=== PATIENT | male | born 1950 | race Caucasian/White ===

== ENCOUNTER → 2016-06-08 | Outpatient (CLI) | payer MEDICARE, OTHER ==
[~2016-06-08] MED LIST: /HCTZ25TA OR; /NEPHROTA PO; /ONDA4TA PO; BYST10TA PO; BYST20TA2 PO; CARA1TAB2 PO; CETI10TA PO; CLOP75TA2 PO; COLA100C3 PO; COLCPOW6 PO; CRES10TA32 PO; CRES20TA PO; DIOV320T PO; DIPH2.5T14 PO; EPOG1000 SC; GLIPIZIDE XL PO; GLUC10TA18 PO; INSULANT SC; IRON325T3 PO; LABE10TAB PO; LOPE2CA PO; LOSA100T36 PO; MAGN64TASA PO; MICR10CA PO; MINO2.5T PO; MINO25TA PO; NEPH1CAP4 PO; PLAV75TA38 PO; POTA10CA PO; POTA10TA2 PO; POTA20TA6 PO; PREV30CA11 PO; PREV30CA6 PO; PROC IM; REGL10TA6 PO; RENATAB5 PO; RENAVITE PO; RENV2TAB PO; SERT-141 PO; SPIR25TA2 PO; TYLE167L PO; TYLE325T5 PO; TYLE500T78 PO; TYLE650T30 PO; VANC75VL IV; VITA-130 PO; VITA50003 PO; VITA500047 PO; VITA500T88 PO
[2016-06-08 10:03] LABS: CALCIUM LEVEL 8.2 MG/DL (8.8-10.2); CREATININE FOR GFR 9.49 MG/DL (0.70-1.30); GLOMERULAR FILTRATION RATE 5.9 (>49); POTASSIUM SERUM 3.9 MEQ/L (3.5-5.1)
--- NOTE | 2016-06-08 10:06 | REP ---
Chest two views HISTORY: Infarction Comparison: 12/14/2015 The lungs are clear. The heart is normal in size. The pulmonary vasculature is normal in appearance. The bony structure is intact. IMPRESSION: No acute disease. Signed by Cyrus German MD 06/08/2016 09:57 A
--- NOTE | 2016-06-09 18:31 | ECGEPIP ---
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
== END ==
LOC: M LAB 09:06
PROVIDERS: ATTEND Ophthalmology
DX: Z01.818 Encounter for other preprocedural examination (principal); E11.9 Type 2 diabetes mellitus without complications; I63.9 Cerebral infarction, unspecified

== ENCOUNTER 2017-01-14 18:22 | Emergency (ER) | payer MEDICARE, OTHER ==
[~2017-01-14] VITALS: Ht 180.3 cm; Wt 82.2 kg
[~2017-01-14 18:22] MED LIST changes: +CARA1TAB6 PO; -COLA100C3 PO; +COLA100C5 PO; -MINO25TA PO; +PLAV1TAB2 PO; -PLAV75TA38 PO; +PREV1CAP PO; -PREV30CA11 PO; +VITA1CAP40 PO; -VITA50003 PO
[2017-01-14] MEDS ORDERED: TUMS500C PO (18:32)
[2017-01-14] MEDS ORDERED: ZOFR4TAB3 PO (18:32)
[2017-01-14] MEDS ORDERED: NS 500 ML IV ONE (19:15)
[2017-01-14 19:39] LABS: BASO % 0.6 % (0.0-1.0); EOS % 0.1 % (0.0-3.0); IMMATURE GRANULOCYTE % 0.3 % (0-0); LYMPH # 0.6 10^3/uL (1.5-4.5); LYMPH % 8.6 % (24.0-44.0); MEAN CORPUSCULAR HEMOGLOBIN 31.1 pg (27.0-33.0); MEAN CORPUSCULAR HGB CONC 32.3 g/dl (32.0-36.5); MEAN CORPUSCULAR VOLUME 96.4 fl (80.0-96.0); MONO # 0.4 10^3/uL (0.0-0.8); MONO % 6.2 % (0.0-5.0); NEUTROPHILS % 84.2 % (36.0-66.0); PLATELET COUNT, AUTOMATED 206 10^3/uL (150-450); RED CELL DISTRIBUTION WIDTH 14.1 % (11.5-14.5); WHITE BLOOD COUNT 7.1 10^3/uL (4.0-10.0)
[2017-01-14 20:09] LABS: ALBUMIN 3.8 GM/DL (3.2-5.2); ALBUMIN/GLOBULIN RATIO 0.95 (1.00-1.93); BILIRUBIN,DIRECT 0.1 MG/DL (0.0-0.2); BILIRUBIN,TOTAL 0.5 MG/DL (0.2-1.0); CALCIUM LEVEL 8.7 MG/DL (8.8-10.2); CREATININE FOR GFR 6.33 MG/DL (0.70-1.30); GLOMERULAR FILTRATION RATE 9.4 (>49); TOTAL PROTEIN 7.8 GM/DL (6.4-8.2)
[2017-01-14] MEDS ORDERED: METOCLOPRAMIDE INJ 10MG/2ML VIAL (J2765) IV ONE (20:30)
[2017-01-14] MEDS ORDERED: REGL5TAB2 PO (21:26)
[2017-01-14 21:31] VITALS: BP 196/88
== END 2017-01-14 21:42 | disposition home or self-care (01) ==
LOC: M ED 18:22
DX: R11.10 Vomiting, unspecified (principal); E86.9 Volume depletion, unspecified
CPT/HCPCS: 36415; 80048; 80076; 83690; 85025; 96361; 96374; 99284; J2765

== ENCOUNTER 2017-03-06 15:44 | Inpatient (IN) | payer MEDICARE, OTHER ==
[2017-03-06] MEDS: methylPREDNISolone INJ 125 MG/2 ML VIAL (J2930) IV (16:35)
[2017-03-06] MEDS: IPRATROPIUM 0.5MG/ALBUTEROL 2.5MG INH SOL UD 3ML (DUONEB)(J7620) NEB ×3 (16:37→17:57)
[2017-03-06 16:52] LABS: ABG BASE EXCESS 1.9 (-2.0-2.0); ABG HCO3 25.9 MEQ/L (22.0-26.0); ABG O2 SATURATION 98.9 % (95.0-99.0); ABG PARTIAL PRESSURE CO2 38.3 mmHg (35.0-45.0); ABG PARTIAL PRESSURE O2 135.2 mmHg (75.0-100.0); ABG STANDARD HCO3 26.2 MEQ/L (22.0-26.0); ABG TOTAL CO2 27.1 MEQ/L (23.0-31.0); ABG pH (ARTERIAL) 7.448 UNITS (7.350-7.450)
[2017-03-06 17:22] LABS: INFLUENZA A AMPLIFICATION NEGATIVE (NEGATIVE); INFLUENZA B AMPLIFICATION NEGATIVE (NEGATIVE)
[2017-03-06 17:32] LABS: BASO % 0.6 % (0.0-1.0); EOS % 0.2 % (0.0-3.0); HEMATOCRIT 35.4 % (42.0-52.0); HEMOGLOBIN 11.2 g/dl (14.0-18.0); IMMATURE GRANULOCYTE % 0.5 % (0-0); LYMPH # 1.2 10^3/uL (1.5-4.5); LYMPH % 18.3 % (24.0-44.0); MEAN CORPUSCULAR HEMOGLOBIN 30.4 pg (27.0-33.0); MEAN CORPUSCULAR HGB CONC 31.6 g/dl (32.0-36.5); MEAN CORPUSCULAR VOLUME 96.2 fl (80.0-96.0); MONO # 0.7 10^3/uL (0.0-0.8); MONO % 11.6 % (0.0-5.0); NEUTROPHILS # 4.4 10^3/uL (1.8-7.7); NEUTROPHILS % 68.8 % (36.0-66.0); PLATELET COUNT, AUTOMATED 187 10^3/uL (150-450); RED BLOOD COUNT 3.68 10^6/uL (4.30-6.10); RED CELL DISTRIBUTION WIDTH 14.9 % (11.5-14.5); WHITE BLOOD COUNT 6.4 10^3/uL (4.0-10.0)
[2017-03-06 17:50] LABS: LACTIC ACID SEPSIS PROTOCOL 1.7 MMOL/L (0.4-2.0)
[2017-03-06 17:51] LABS: ANION GAP 14 MEQ/L (8-16); BLOOD UREA NITROGEN 48 MG/DL (7-18); CALCIUM LEVEL 8.3 MG/DL (8.8-10.2); CARBON DIOXIDE LEVEL 28 MEQ/L (21-32); CHLORIDE LEVEL 95 MEQ/L (98-107); CPK CREATINE PHOSPHOKINASE 264 U/L (39-308); GLOMERULAR FILTRATION RATE 5.7 (>49); GLUCOSE, FASTING 134 MG/DL (70-100); POTASSIUM SERUM 4.3 MEQ/L (3.5-5.1); SODIUM LEVEL 137 MEQ/L (136-145)
[2017-03-06 17:52] LABS: MB/CK RELATIVE INDEX 0.37 (< OR =4)
[2017-03-06 17:58] LABS: CREATININE FOR GFR 9.76 MG/DL (0.70-1.30)
[2017-03-06] MEDS ORDERED: ACETAMINOPHEN TAB 650MG DOSE (2X325MG) PO (19:00)
[2017-03-06] MEDS: DOCUSATE SODIUM 100 MG CAP PO ×2 (21:00→22:25)
[2017-03-06] MEDS: ALBUTEROL SULFATE 2.5 MG/0.5 ML INH NEB SOLN NEB (22:17)
[2017-03-06 22:19] LABS: BEDSIDE GLUCOSE 251 MG/DL (80-115)
[2017-03-06] MEDS: LEVEMIR (INSULIN DETEMIR) 1 UNITS/0.01ML SC (22:23)
[2017-03-06] MEDS: LANSOPRAZOLE SUSPENSION 30 MG/10 ML ORAL SYRINGE (FIRST-LANSOPRAZOLE) PO (22:24)
[2017-03-06] MEDS: ROSUVASTATIN 10 MG TAB (CRESTOR) PO (22:24)
[2017-03-06] MEDS: CLOPIDOGREL 75 MG TAB PO (22:25)
[2017-03-06] MEDS: NEBIVOLOL 5 MG TAB (BYSTOLIC) PO (22:25)
[2017-03-06] MEDS: NEPHRO-VIT TAB (NEPHROCAPS) PO (22:25)
[2017-03-07] MEDS: ALBUTEROL SULFATE 2.5 MG/0.5 ML INH NEB SOLN NEB ×2 (04:10→22:49)
[2017-03-07 07:46] LABS: HEMATOCRIT 32.7 % (42.0-52.0); HEMOGLOBIN 10.7 g/dl (14.0-18.0); MEAN CORPUSCULAR HEMOGLOBIN 30.7 pg (27.0-33.0); MEAN CORPUSCULAR HGB CONC 32.7 g/dl (32.0-36.5); PLATELET COUNT, AUTOMATED 182 10^3/uL (150-450); RED BLOOD COUNT 3.48 10^6/uL (4.30-6.10); RED CELL DISTRIBUTION WIDTH 14.5 % (11.5-14.5); WHITE BLOOD COUNT 4.6 10^3/uL (4.0-10.0)
[2017-03-07] MEDS: DOCUSATE SODIUM 100 MG CAP PO ×3 (08:07→22:05)
[2017-03-07] MEDS: guaiFENesin ER 600 MG TAB PO ×2 (08:14→22:07)
[2017-03-07 08:15] LABS: ALBUMIN 3.6 GM/DL (3.2-5.2); ANION GAP 12 MEQ/L (8-16); BLOOD UREA NITROGEN 59 MG/DL (7-18); CALCIUM LEVEL 8.2 MG/DL (8.8-10.2); CARBON DIOXIDE LEVEL 27 MEQ/L (21-32); CHLORIDE LEVEL 94 MEQ/L (98-107); GLOMERULAR FILTRATION RATE 5.1 (>49); GLUCOSE, FASTING 257 MG/DL (70-100); PHOSPHORUS LEVEL 7.7 MG/DL (2.5-4.9); POTASSIUM SERUM 4.1 MEQ/L (3.5-5.1); SODIUM LEVEL 133 MEQ/L (136-145)
[2017-03-07] MEDS: CALCIUM CARBONATE 500 MG CHEW U/D PO ×3 (08:15→17:43)
[2017-03-07 09:08] LABS: CK-MB VALUE MASS 1.7 NG/ML (0.0-3.6); CPK CREATINE PHOSPHOKINASE 255 U/L (39-308); MB/CK RELATIVE INDEX 0.66 (< OR =4); TROPONIN I 0.37 NG/ML (< 0.10)
[2017-03-07 09:09] LABS: C REACTIVE PROTEIN QUANTITATIV 4.13 MG/DL (0.00-0.30)
[2017-03-07] MEDS: HEPARIN 1,000 UNITS/ML 10ML VIAL (FOR RADIOLOGY& DIALYSIS ONLY) IV (11:45)
[2017-03-07] MEDS: HumaLOG INSULIN (NovoLOG) PER UNIT SC ×2 (17:30→21:00)
[2017-03-07] MEDS ORDERED: GLUCAGON FOR INJ 1 MG VIAL (J1610) SC (19:00)
[2017-03-07] MEDS ORDERED: GLUCOSE 4 GM CHEW TABLET PO (19:00)
[2017-03-07] MEDS ORDERED: DEXTROSE 50% 50 ML SYRINGE IV (19:00)
[2017-03-07 19:31] LABS: CPK CREATINE PHOSPHOKINASE 254 U/L (39-308); TROPONIN I 0.48 NG/ML (< 0.10)
[2017-03-07 19:32] LABS: CK-MB VALUE MASS 2.7 NG/ML (0.0-3.6); MB/CK RELATIVE INDEX 1.06 (< OR =4)
[2017-03-07 20:53] LABS: BEDSIDE GLUCOSE 131 MG/DL (80-115)
[2017-03-07] MEDS: LEVEMIR (INSULIN DETEMIR) 1 UNITS/0.01ML SC (21:00)
[2017-03-07] MEDS: CLOPIDOGREL 75 MG TAB PO (22:07)
[2017-03-07] MEDS: ROSUVASTATIN 10 MG TAB (CRESTOR) PO (22:07)
[2017-03-07] MEDS: HEPARIN SOD (PORCINE) 5000 UNITS/ML VIAL SC (22:08)
[2017-03-07] MEDS: LANSOPRAZOLE SUSPENSION 30 MG/10 ML ORAL SYRINGE (FIRST-LANSOPRAZOLE) PO (22:12)
[2017-03-07] MEDS: NEPHRO-VIT TAB (NEPHROCAPS) PO (22:12)
[2017-03-07] MEDS: NEBIVOLOL 5 MG TAB (BYSTOLIC) PO (22:17)
[2017-03-08] MEDS: HEPARIN SOD (PORCINE) 5000 UNITS/ML VIAL SC ×3 (06:11→22:14)
[2017-03-08] MEDS: guaiFENesin ER 600 MG TAB PO ×2 (06:11→22:12)
[2017-03-08] MEDS: CALCIUM CARBONATE 500 MG CHEW U/D PO ×3 (06:11→17:50)
[2017-03-08 06:18] LABS: BEDSIDE GLUCOSE 45 MG/DL (80-115)
[2017-03-08 06:21] LABS: HEMATOCRIT 39.5 % (42.0-52.0); HEMOGLOBIN 12.6 g/dl (14.0-18.0); MEAN CORPUSCULAR HEMOGLOBIN 30.5 pg (27.0-33.0); MEAN CORPUSCULAR HGB CONC 31.9 g/dl (32.0-36.5); MEAN CORPUSCULAR VOLUME 95.6 fl (80.0-96.0); PLATELET COUNT, AUTOMATED 259 10^3/uL (150-450); RED BLOOD COUNT 4.13 10^6/uL (4.30-6.10); RED CELL DISTRIBUTION WIDTH 14.5 % (11.5-14.5); WHITE BLOOD COUNT 13.3 10^3/uL (4.0-10.0)
[2017-03-08 06:30] LABS: ALBUMIN 3.7 GM/DL (3.2-5.2); ANION GAP 10 MEQ/L (8-16); BLOOD UREA NITROGEN 38 MG/DL (7-18); C REACTIVE PROTEIN QUANTITATIV 3.35 MG/DL (0.00-0.30); CALCIUM LEVEL 9.3 MG/DL (8.8-10.2); CARBON DIOXIDE LEVEL 28 MEQ/L (21-32); CHLORIDE LEVEL 102 MEQ/L (98-107); CREATININE FOR GFR 6.77 MG/DL (0.70-1.30); GLOMERULAR FILTRATION RATE 8.7 (>49); GLUCOSE, FASTING 54 MG/DL (70-100); MAGNESIUM LEVEL 2.6 MG/DL (1.8-2.4); PHOSPHORUS LEVEL 3.3 MG/DL (2.5-4.9); POTASSIUM SERUM 3.2 MEQ/L (3.5-5.1); SODIUM LEVEL 140 MEQ/L (136-145)
[2017-03-08 06:55] LABS: BEDSIDE GLUCOSE 74 MG/DL (80-115)
[2017-03-08] MEDS: HumaLOG INSULIN (NovoLOG) PER UNIT SC ×4 (07:30→22:13)
[2017-03-08 08:00] LABS: CK-MB VALUE MASS 2.5 NG/ML (0.0-3.6); CPK CREATINE PHOSPHOKINASE 169 U/L (39-308); MB/CK RELATIVE INDEX 1.47 (< OR =4); TROPONIN I 0.25 NG/ML (< 0.10)
[2017-03-08] MEDS: DOCUSATE SODIUM 100 MG CAP PO ×2 (08:17→22:14)
[2017-03-08] MEDS: methylPREDNISolone INJ 125 MG/2 ML VIAL (J2930) IV ×2 (10:01→22:14)
[2017-03-08] MEDS: IPRATROPIUM 0.5MG/ALBUTEROL 2.5MG INH SOL UD 3ML (DUONEB)(J7620) NEB ×4 (10:03→20:00)
[2017-03-08 12:04] LABS: BEDSIDE GLUCOSE 180 MG/DL (80-115)
[2017-03-08] MEDS: ADVAIR HFA 230/21MCG INHALER INH ×2 (13:50→22:02)
[2017-03-08 17:15] LABS: BEDSIDE GLUCOSE 222 MG/DL (80-115)
[2017-03-08 21:02] LABS: BEDSIDE GLUCOSE 254 MG/DL (80-115)
[2017-03-08] MEDS: ROSUVASTATIN 10 MG TAB (CRESTOR) PO (22:12)
[2017-03-08] MEDS: CLOPIDOGREL 75 MG TAB PO (22:12)
[2017-03-08] MEDS: NEBIVOLOL 5 MG TAB (BYSTOLIC) PO (22:12)
[2017-03-08] MEDS: NEPHRO-VIT TAB (NEPHROCAPS) PO (22:12)
[2017-03-08] MEDS: LEVEMIR (INSULIN DETEMIR) 1 UNITS/0.01ML SC (22:13)
[2017-03-08] MEDS: LANSOPRAZOLE SUSPENSION 30 MG/10 ML ORAL SYRINGE (FIRST-LANSOPRAZOLE) PO (22:14)
[2017-03-09] MEDS: IPRATROPIUM 0.5MG/ALBUTEROL 2.5MG INH SOL UD 3ML (DUONEB)(J7620) NEB ×4 (02:00→20:25)
[2017-03-09 04:54] LABS: BEDSIDE GLUCOSE 249 MG/DL (80-115)
[2017-03-09 04:56] LABS: BEDSIDE GLUCOSE 258 MG/DL (80-115)
[2017-03-09] MEDS: DOCUSATE SODIUM 100 MG CAP PO ×2 (06:10→21:02)
[2017-03-09] MEDS: guaiFENesin ER 600 MG TAB PO ×2 (06:13→21:18)
[2017-03-09] MEDS: HEPARIN SOD (PORCINE) 5000 UNITS/ML VIAL SC ×3 (06:14→21:19)
[2017-03-09 06:17] LABS: HEMATOCRIT 35.1 % (42.0-52.0); HEMOGLOBIN 11.1 g/dl (14.0-18.0); MEAN CORPUSCULAR HEMOGLOBIN 30.2 pg (27.0-33.0); MEAN CORPUSCULAR HGB CONC 31.6 g/dl (32.0-36.5); MEAN CORPUSCULAR VOLUME 95.4 fl (80.0-96.0); PLATELET COUNT, AUTOMATED 208 10^3/uL (150-450); RED BLOOD COUNT 3.68 10^6/uL (4.30-6.10); RED CELL DISTRIBUTION WIDTH 14.3 % (11.5-14.5); WHITE BLOOD COUNT 8.7 10^3/uL (4.0-10.0)
[2017-03-09 06:35] LABS: ALBUMIN 3.1 GM/DL (3.2-5.2); ANION GAP 13 MEQ/L (8-16); BLOOD UREA NITROGEN 62 MG/DL (7-18); C REACTIVE PROTEIN QUANTITATIV 2.96 MG/DL (0.00-0.30); CALCIUM LEVEL 8.6 MG/DL (8.8-10.2); CARBON DIOXIDE LEVEL 25 MEQ/L (21-32); CHLORIDE LEVEL 95 MEQ/L (98-107); GLUCOSE, FASTING 248 MG/DL (70-100); MAGNESIUM LEVEL 2.6 MG/DL (1.8-2.4); PHOSPHORUS LEVEL 4.8 MG/DL (2.5-4.9); POTASSIUM SERUM 4.3 MEQ/L (3.5-5.1); SODIUM LEVEL 133 MEQ/L (136-145)
[2017-03-09 06:40] LABS: CREATININE FOR GFR 8.19 MG/DL (0.70-1.30)
[2017-03-09] MEDS: ADVAIR HFA 230/21MCG INHALER INH ×2 (07:43→20:03)
[2017-03-09] MEDS: HumaLOG INSULIN (NovoLOG) PER UNIT SC ×4 (07:53→21:21)
[2017-03-09] MEDS: CALCIUM CARBONATE 500 MG CHEW U/D PO ×3 (07:54→17:35)
[2017-03-09] MEDS: methylPREDNISolone INJ 125 MG/2 ML VIAL (J2930) IV ×2 (07:54→21:19)
[2017-03-09] MEDS ORDERED: HEPARIN 1,000 UNITS/ML 10ML VIAL (FOR RADIOLOGY& DIALYSIS ONLY) IV (11:15)
[2017-03-09] MEDS: HEPARIN 1,000 UNITS/ML 10ML VIAL (FOR RADIOLOGY& DIALYSIS ONLY) IV (11:15)
[2017-03-09 12:26] LABS: BEDSIDE GLUCOSE 202 MG/DL (80-115)
[2017-03-09 16:44] LABS: BEDSIDE GLUCOSE 228 MG/DL (80-115)
[2017-03-09] MEDS: ROSUVASTATIN 10 MG TAB (CRESTOR) PO (21:17)
[2017-03-09] MEDS: NEPHRO-VIT TAB (NEPHROCAPS) PO (21:18)
[2017-03-09] MEDS: NEBIVOLOL 5 MG TAB (BYSTOLIC) PO (21:18)
[2017-03-09] MEDS: CLOPIDOGREL 75 MG TAB PO (21:18)
[2017-03-09] MEDS: LANSOPRAZOLE SUSPENSION 30 MG/10 ML ORAL SYRINGE (FIRST-LANSOPRAZOLE) PO (21:19)
[2017-03-09] MEDS: LEVEMIR (INSULIN DETEMIR) 1 UNITS/0.01ML SC (21:20)
[2017-03-09 21:34] LABS: BEDSIDE GLUCOSE 246 MG/DL (80-115)
[2017-03-10] MEDS: IPRATROPIUM 0.5MG/ALBUTEROL 2.5MG INH SOL UD 3ML (DUONEB)(J7620) NEB ×5 (01:07→23:31)
[2017-03-10] MEDS: HEPARIN SOD (PORCINE) 5000 UNITS/ML VIAL SC ×3 (05:17→21:24)
[2017-03-10 05:56] LABS: HEMATOCRIT 33.2 % (42.0-52.0); HEMOGLOBIN 10.7 g/dl (14.0-18.0); MEAN CORPUSCULAR HEMOGLOBIN 30.7 pg (27.0-33.0); MEAN CORPUSCULAR HGB CONC 32.2 g/dl (32.0-36.5); MEAN CORPUSCULAR VOLUME 95.1 fl (80.0-96.0); PLATELET COUNT, AUTOMATED 200 10^3/uL (150-450); RED BLOOD COUNT 3.49 10^6/uL (4.30-6.10); RED CELL DISTRIBUTION WIDTH 14.4 % (11.5-14.5); WHITE BLOOD COUNT 8.5 10^3/uL (4.0-10.0)
[2017-03-10 06:16] LABS: ALBUMIN 3.3 GM/DL (3.2-5.2); ANION GAP 10 MEQ/L (8-16); BLOOD UREA NITROGEN 46 MG/DL (7-18); CALCIUM LEVEL 8.8 MG/DL (8.8-10.2); CARBON DIOXIDE LEVEL 26 MEQ/L (21-32); CHLORIDE LEVEL 100 MEQ/L (98-107); CREATININE FOR GFR 5.96 MG/DL (0.70-1.30); GLOMERULAR FILTRATION RATE 10.1 (>49); GLUCOSE, FASTING 332 MG/DL (70-100); MAGNESIUM LEVEL 2.2 MG/DL (1.8-2.4); POTASSIUM SERUM 4.6 MEQ/L (3.5-5.1); SODIUM LEVEL 136 MEQ/L (136-145)
[2017-03-10] MEDS: ADVAIR HFA 230/21MCG INHALER INH ×2 (07:33→21:34)
[2017-03-10] MEDS: HumaLOG INSULIN (NovoLOG) PER UNIT SC ×4 (07:45→21:25)
[2017-03-10] MEDS: CALCIUM CARBONATE 500 MG CHEW U/D PO ×3 (07:45→17:28)
[2017-03-10] MEDS: DOCUSATE SODIUM 100 MG CAP PO ×2 (09:00→21:00)
[2017-03-10] MEDS: guaiFENesin ER 600 MG TAB PO ×2 (10:17→21:26)
[2017-03-10] MEDS: methylPREDNISolone INJ 40 MG/1 ML VIAL (J2920) IV ×2 (10:17→21:24)
[2017-03-10 11:34] LABS: BEDSIDE GLUCOSE 83 MG/DL (80-115)
[2017-03-10] MEDS: LEVEMIR (INSULIN DETEMIR) 1 UNITS/0.01ML SC (21:00)
[2017-03-10] MEDS: NEPHRO-VIT TAB (NEPHROCAPS) PO (21:25)
[2017-03-10] MEDS: ROSUVASTATIN 10 MG TAB (CRESTOR) PO (21:26)
[2017-03-10] MEDS: CLOPIDOGREL 75 MG TAB PO (21:26)
[2017-03-10] MEDS: NEBIVOLOL 5 MG TAB (BYSTOLIC) PO (21:26)
[2017-03-10] MEDS: LANSOPRAZOLE SUSPENSION 30 MG/10 ML ORAL SYRINGE (FIRST-LANSOPRAZOLE) PO (22:14)
[2017-03-11] MEDS: IPRATROPIUM 0.5MG/ALBUTEROL 2.5MG INH SOL UD 3ML (DUONEB)(J7620) NEB ×4 (02:00→20:00)
[2017-03-11] MEDS: DOCUSATE SODIUM 100 MG CAP PO ×2 (05:36→20:20)
[2017-03-11 05:59] LABS: BEDSIDE GLUCOSE 320 MG/DL (80-115)
[2017-03-11 05:59] LABS: BEDSIDE GLUCOSE 321 MG/DL (80-115)
[2017-03-11] MEDS: methylPREDNISolone INJ 40 MG/1 ML VIAL (J2920) IV ×2 (06:13→21:22)
[2017-03-11] MEDS: HEPARIN SOD (PORCINE) 5000 UNITS/ML VIAL SC ×3 (06:13→21:22)
[2017-03-11] MEDS: guaiFENesin ER 600 MG TAB PO ×2 (06:14→21:20)
[2017-03-11] MEDS: CALCIUM CARBONATE 500 MG CHEW U/D PO ×3 (06:14→17:57)
[2017-03-11 06:26] LABS: HEMATOCRIT 33.9 % (42.0-52.0); HEMOGLOBIN 10.8 g/dl (14.0-18.0); MEAN CORPUSCULAR HGB CONC 31.9 g/dl (32.0-36.5); MEAN CORPUSCULAR VOLUME 94.2 fl (80.0-96.0); PLATELET COUNT, AUTOMATED 201 10^3/uL (150-450); RED CELL DISTRIBUTION WIDTH 14.4 % (11.5-14.5); WHITE BLOOD COUNT 9.5 10^3/uL (4.0-10.0)
[2017-03-11 06:44] LABS: ALBUMIN 3.4 GM/DL (3.2-5.2); ANION GAP 12 MEQ/L (8-16); BLOOD UREA NITROGEN 74 MG/DL (7-18); C REACTIVE PROTEIN QUANTITATIV 1.26 MG/DL (0.00-0.30); CALCIUM LEVEL 8.6 MG/DL (8.8-10.2); CARBON DIOXIDE LEVEL 24 MEQ/L (21-32); CHLORIDE LEVEL 98 MEQ/L (98-107); CREATININE FOR GFR 7.46 MG/DL (0.70-1.30); GLOMERULAR FILTRATION RATE 7.8 (>49); GLUCOSE, FASTING 235 MG/DL (70-100); MAGNESIUM LEVEL 2.5 MG/DL (1.8-2.4); PHOSPHORUS LEVEL 3.6 MG/DL (2.5-4.9); POTASSIUM SERUM 4.9 MEQ/L (3.5-5.1); SODIUM LEVEL 134 MEQ/L (136-145)
[2017-03-11] MEDS: HumaLOG INSULIN (NovoLOG) PER UNIT SC ×4 (06:53→21:22)
[2017-03-11] MEDS: ADVAIR HFA 230/21MCG INHALER INH ×2 (08:19→21:06)
[2017-03-11] MEDS: HEPARIN 1,000 UNITS/ML 10ML VIAL (FOR RADIOLOGY& DIALYSIS ONLY) IV (12:15)
[2017-03-11] MEDS: BENZONATATE 100 MG CAP PO ×2 (18:39→21:20)
[2017-03-11 20:46] LABS: BEDSIDE GLUCOSE 273 MG/DL (80-115)
[2017-03-11] MEDS: LEVEMIR (INSULIN DETEMIR) 1 UNITS/0.01ML SC (21:00)
[2017-03-11] MEDS: ROSUVASTATIN 10 MG TAB (CRESTOR) PO (21:20)
[2017-03-11] MEDS: NEPHRO-VIT TAB (NEPHROCAPS) PO (21:20)
[2017-03-11] MEDS: CLOPIDOGREL 75 MG TAB PO (21:20)
[2017-03-11] MEDS: NEBIVOLOL 5 MG TAB (BYSTOLIC) PO (21:21)
[2017-03-11] MEDS: LANSOPRAZOLE SUSPENSION 30 MG/10 ML ORAL SYRINGE (FIRST-LANSOPRAZOLE) PO (21:21)
[2017-03-12] MEDS: IPRATROPIUM 0.5MG/ALBUTEROL 2.5MG INH SOL UD 3ML (DUONEB)(J7620) NEB ×4 (01:35→20:00)
[2017-03-12] MEDS: HEPARIN SOD (PORCINE) 5000 UNITS/ML VIAL SC ×3 (05:44→22:29)
[2017-03-12 06:26] LABS: HEMATOCRIT 33.9 % (42.0-52.0); HEMOGLOBIN 10.9 g/dl (14.0-18.0); MEAN CORPUSCULAR HEMOGLOBIN 30.1 pg (27.0-33.0); MEAN CORPUSCULAR HGB CONC 32.2 g/dl (32.0-36.5); MEAN CORPUSCULAR VOLUME 93.6 fl (80.0-96.0); PLATELET COUNT, AUTOMATED 220 10^3/uL (150-450); RED BLOOD COUNT 3.62 10^6/uL (4.30-6.10); RED CELL DISTRIBUTION WIDTH 14.2 % (11.5-14.5); WHITE BLOOD COUNT 13.8 10^3/uL (4.0-10.0)
[2017-03-12 06:40] LABS: ANION GAP 9 MEQ/L (8-16); BLOOD UREA NITROGEN 46 MG/DL (7-18); C REACTIVE PROTEIN QUANTITATIV 1.32 MG/DL (0.00-0.30); CALCIUM LEVEL 8.3 MG/DL (8.8-10.2); CARBON DIOXIDE LEVEL 28 MEQ/L (21-32); CHLORIDE LEVEL 101 MEQ/L (98-107); CREATININE FOR GFR 5.17 MG/DL (0.70-1.30); GLOMERULAR FILTRATION RATE 11.9 (>49); GLUCOSE, FASTING 146 MG/DL (70-100); PHOSPHORUS LEVEL 2.4 MG/DL (2.5-4.9); POTASSIUM SERUM 4.3 MEQ/L (3.5-5.1); SODIUM LEVEL 138 MEQ/L (136-145)
[2017-03-12] MEDS: BENZONATATE 100 MG CAP PO ×3 (08:14→22:28)
[2017-03-12] MEDS: HumaLOG INSULIN (NovoLOG) PER UNIT SC ×4 (08:14→22:31)
[2017-03-12] MEDS: DOCUSATE SODIUM 100 MG CAP PO ×2 (08:14→22:27)
[2017-03-12] MEDS: CALCIUM CARBONATE 500 MG CHEW U/D PO ×3 (08:14→17:56)
[2017-03-12] MEDS: guaiFENesin ER 600 MG TAB PO ×2 (08:14→22:28)
[2017-03-12] MEDS: methylPREDNISolone INJ 40 MG/1 ML VIAL (J2920) IV ×2 (08:17→22:29)
[2017-03-12] MEDS: ADVAIR HFA 230/21MCG INHALER INH ×2 (09:43→20:28)
[2017-03-12 11:59] LABS: BEDSIDE GLUCOSE 166 MG/DL (80-115)
[2017-03-12 11:59] LABS: BEDSIDE GLUCOSE 311 MG/DL (80-115)
[2017-03-12 11:59] LABS: BEDSIDE GLUCOSE 226 MG/DL (80-115)
[2017-03-12 12:00] LABS: BEDSIDE GLUCOSE 141 MG/DL (80-115)
[2017-03-12 12:32] LABS: BEDSIDE GLUCOSE 291 MG/DL (80-115)
[2017-03-12 16:55] LABS: BEDSIDE GLUCOSE 268 MG/DL (80-115)
[2017-03-12] MEDS: ROSUVASTATIN 10 MG TAB (CRESTOR) PO (22:27)
[2017-03-12] MEDS: NEBIVOLOL 5 MG TAB (BYSTOLIC) PO (22:28)
[2017-03-12] MEDS: NEPHRO-VIT TAB (NEPHROCAPS) PO (22:28)
[2017-03-12] MEDS: LANSOPRAZOLE SUSPENSION 30 MG/10 ML ORAL SYRINGE (FIRST-LANSOPRAZOLE) PO (22:29)
[2017-03-12] MEDS: CLOPIDOGREL 75 MG TAB PO (22:30)
[2017-03-12] MEDS: LEVEMIR (INSULIN DETEMIR) 1 UNITS/0.01ML SC (22:30)
[2017-03-13] MEDS: IPRATROPIUM 0.5MG/ALBUTEROL 2.5MG INH SOL UD 3ML (DUONEB)(J7620) NEB ×5 (01:22→23:43)
[2017-03-13 05:51] LABS: HEMATOCRIT 33.9 % (42.0-52.0); HEMOGLOBIN 10.8 g/dl (14.0-18.0); MEAN CORPUSCULAR HEMOGLOBIN 30.1 pg (27.0-33.0); MEAN CORPUSCULAR HGB CONC 31.9 g/dl (32.0-36.5); MEAN CORPUSCULAR VOLUME 94.4 fl (80.0-96.0); PLATELET COUNT, AUTOMATED 193 10^3/uL (150-450); RED BLOOD COUNT 3.59 10^6/uL (4.30-6.10); RED CELL DISTRIBUTION WIDTH 14.4 % (11.5-14.5); WHITE BLOOD COUNT 10.9 10^3/uL (4.0-10.0)
[2017-03-13] MEDS: HEPARIN SOD (PORCINE) 5000 UNITS/ML VIAL SC ×3 (06:03→21:47)
[2017-03-13] MEDS: BENZONATATE 100 MG CAP PO ×3 (06:04→21:46)
[2017-03-13] MEDS: guaiFENesin ER 600 MG TAB PO ×2 (06:04→21:46)
[2017-03-13] MEDS: DOCUSATE SODIUM 100 MG CAP PO ×2 (06:04→21:45)
[2017-03-13] MEDS: methylPREDNISolone INJ 40 MG/1 ML VIAL (J2920) IV (06:04)
[2017-03-13] MEDS: CALCIUM CARBONATE 500 MG CHEW U/D PO ×3 (06:04→16:55)
[2017-03-13 06:12] LABS: ALBUMIN 2.7 GM/DL (3.2-5.2); ANION GAP 9 MEQ/L (8-16); BLOOD UREA NITROGEN 76 MG/DL (7-18); CALCIUM LEVEL 8.7 MG/DL (8.8-10.2); CARBON DIOXIDE LEVEL 26 MEQ/L (21-32); CHLORIDE LEVEL 100 MEQ/L (98-107); CREATININE FOR GFR 6.83 MG/DL (0.70-1.30); GLOMERULAR FILTRATION RATE 8.6 (>49); GLUCOSE, FASTING 113 MG/DL (70-100); MAGNESIUM LEVEL 2.4 MG/DL (1.8-2.4); PHOSPHORUS LEVEL 2.8 MG/DL (2.5-4.9); SODIUM LEVEL 135 MEQ/L (136-145)
[2017-03-13 06:28] LABS: POTASSIUM SERUM 5.2 MEQ/L (3.5-5.1)
[2017-03-13] MEDS: HumaLOG INSULIN (NovoLOG) PER UNIT SC ×4 (06:56→21:00)
[2017-03-13 06:57] LABS: BEDSIDE GLUCOSE 305 MG/DL (80-115)
[2017-03-13] MEDS: ADVAIR HFA 230/21MCG INHALER INH ×2 (08:13→21:54)
[2017-03-13] MEDS: HEPARIN 1,000 UNITS/ML 10ML VIAL (FOR RADIOLOGY& DIALYSIS ONLY) IV (12:00)
[2017-03-13] MEDS: CLOPIDOGREL 75 MG TAB PO (21:46)
[2017-03-13] MEDS: NEBIVOLOL 5 MG TAB (BYSTOLIC) PO (21:46)
[2017-03-13] MEDS: ROSUVASTATIN 10 MG TAB (CRESTOR) PO (21:46)
[2017-03-13] MEDS: NEPHRO-VIT TAB (NEPHROCAPS) PO (21:46)
[2017-03-13] MEDS: LEVEMIR (INSULIN DETEMIR) 1 UNITS/0.01ML SC (21:47)
[2017-03-13 21:56] LABS: BEDSIDE GLUCOSE 231 MG/DL (80-115)
[2017-03-13] MEDS: LANSOPRAZOLE SUSPENSION 30 MG/10 ML ORAL SYRINGE (FIRST-LANSOPRAZOLE) PO (22:21)
[2017-03-14] MEDS: HEPARIN SOD (PORCINE) 5000 UNITS/ML VIAL SC ×3 (05:30→21:54)
[2017-03-14 06:15] LABS: HEMATOCRIT 33.3 % (42.0-52.0); HEMOGLOBIN 10.9 g/dl (14.0-18.0); MEAN CORPUSCULAR HEMOGLOBIN 30.8 pg (27.0-33.0); MEAN CORPUSCULAR HGB CONC 32.7 g/dl (32.0-36.5); MEAN CORPUSCULAR VOLUME 94.1 fl (80.0-96.0); PLATELET COUNT, AUTOMATED 224 10^3/uL (150-450); RED BLOOD COUNT 3.54 10^6/uL (4.30-6.10); RED CELL DISTRIBUTION WIDTH 14.6 % (11.5-14.5); WHITE BLOOD COUNT 10.7 10^3/uL (4.0-10.0)
[2017-03-14 06:32] LABS: ALBUMIN 2.8 GM/DL (3.2-5.2); ANION GAP 8 MEQ/L (8-16); BLOOD UREA NITROGEN 52 MG/DL (7-18); CALCIUM LEVEL 8.5 MG/DL (8.8-10.2); CARBON DIOXIDE LEVEL 29 MEQ/L (21-32); CHLORIDE LEVEL 103 MEQ/L (98-107); CREATININE FOR GFR 5.17 MG/DL (0.70-1.30); GLOMERULAR FILTRATION RATE 11.9 (>49); GLUCOSE, FASTING 81 MG/DL (70-100); MAGNESIUM LEVEL 2.3 MG/DL (1.8-2.4); PHOSPHORUS LEVEL 2.7 MG/DL (2.5-4.9); POTASSIUM SERUM 3.6 MEQ/L (3.5-5.1); SODIUM LEVEL 140 MEQ/L (136-145)
[2017-03-14] MEDS: HumaLOG INSULIN (NovoLOG) PER UNIT SC ×4 (07:07→21:00)
[2017-03-14] MEDS: IPRATROPIUM 0.5MG/ALBUTEROL 2.5MG INH SOL UD 3ML (DUONEB)(J7620) NEB ×3 (08:00→20:00)
[2017-03-14] MEDS: DOCUSATE SODIUM 100 MG CAP PO ×2 (08:23→21:49)
[2017-03-14] MEDS: CALCIUM CARBONATE 500 MG CHEW U/D PO ×3 (08:23→17:10)
[2017-03-14] MEDS: guaiFENesin ER 600 MG TAB PO ×2 (08:23→21:51)
[2017-03-14] MEDS: BENZONATATE 100 MG CAP PO ×3 (08:23→21:50)
[2017-03-14] MEDS: predniSONE 50 MG TAB PO (08:23)
[2017-03-14] MEDS: ADVAIR HFA 230/21MCG INHALER INH ×2 (08:28→20:37)
[2017-03-14] MEDS ORDERED: VARIBAR PUDDING 40% w/v 230ML TUBE As Ordered (15:23)
[2017-03-14] MEDS ORDERED: VARIBAR NECTAR 40% w/v 240ML SUSP BTL As Ordered (15:23)
[2017-03-14] MEDS ORDERED: E-Z-PAQUE 96% w/w SUSP 176GM BTL As Ordered (15:24)
[2017-03-14 21:30] LABS: BEDSIDE GLUCOSE 311 MG/DL (80-115)
[2017-03-14 21:30] LABS: BEDSIDE GLUCOSE 282 MG/DL (80-115)
[2017-03-14 21:30] LABS: BEDSIDE GLUCOSE 208 MG/DL (80-115)
[2017-03-14 21:30] LABS: BEDSIDE GLUCOSE 262 MG/DL (80-115)
[2017-03-14 21:31] LABS: BEDSIDE GLUCOSE 379 MG/DL (80-115)
[2017-03-14] MEDS: CLOPIDOGREL 75 MG TAB PO (21:49)
[2017-03-14] MEDS: ROSUVASTATIN 10 MG TAB (CRESTOR) PO (21:50)
[2017-03-14] MEDS: NEPHRO-VIT TAB (NEPHROCAPS) PO (21:50)
[2017-03-14] MEDS: NEBIVOLOL 5 MG TAB (BYSTOLIC) PO (21:51)
[2017-03-14] MEDS: LEVEMIR (INSULIN DETEMIR) 1 UNITS/0.01ML SC (21:52)
[2017-03-14] MEDS: LANSOPRAZOLE SUSPENSION 30 MG/10 ML ORAL SYRINGE (FIRST-LANSOPRAZOLE) PO (22:47)
[2017-03-15] MEDS: IPRATROPIUM 0.5MG/ALBUTEROL 2.5MG INH SOL UD 3ML (DUONEB)(J7620) NEB ×4 (01:19→19:56)
[2017-03-15 06:13] LABS: HEMATOCRIT 34.7 % (42.0-52.0); HEMOGLOBIN 11.2 g/dl (14.0-18.0); MEAN CORPUSCULAR HGB CONC 32.3 g/dl (32.0-36.5); PLATELET COUNT, AUTOMATED 226 10^3/uL (150-450); RED BLOOD COUNT 3.73 10^6/uL (4.30-6.10); RED CELL DISTRIBUTION WIDTH 14.6 % (11.5-14.5); WHITE BLOOD COUNT 11.2 10^3/uL (4.0-10.0)
[2017-03-15] MEDS: predniSONE 50 MG TAB PO (06:25)
[2017-03-15] MEDS: HEPARIN SOD (PORCINE) 5000 UNITS/ML VIAL SC ×3 (06:25→21:08)
[2017-03-15] MEDS: CALCIUM CARBONATE 500 MG CHEW U/D PO ×3 (06:25→18:22)
[2017-03-15] MEDS: guaiFENesin ER 600 MG TAB PO ×2 (06:25→21:08)
[2017-03-15] MEDS: BENZONATATE 100 MG CAP PO ×3 (06:25→21:10)
[2017-03-15] MEDS: DOCUSATE SODIUM 100 MG CAP PO ×2 (06:25→21:09)
[2017-03-15 06:35] LABS: ANION GAP 11 MEQ/L (8-16); BLOOD UREA NITROGEN 75 MG/DL (7-18); CALCIUM LEVEL 8.5 MG/DL (8.8-10.2); CARBON DIOXIDE LEVEL 27 MEQ/L (21-32); CHLORIDE LEVEL 98 MEQ/L (98-107); CREATININE FOR GFR 6.81 MG/DL (0.70-1.30); GLOMERULAR FILTRATION RATE 8.6 (>49); GLUCOSE, FASTING 108 MG/DL (70-100); MAGNESIUM LEVEL 2.4 MG/DL (1.8-2.4); PHOSPHORUS LEVEL 4.4 MG/DL (2.5-4.9); POTASSIUM SERUM 4.7 MEQ/L (3.5-5.1); SODIUM LEVEL 136 MEQ/L (136-145)
[2017-03-15] MEDS: HumaLOG INSULIN (NovoLOG) PER UNIT SC ×4 (07:15→21:11)
[2017-03-15] MEDS: ADVAIR HFA 230/21MCG INHALER INH ×2 (10:18→19:55)
[2017-03-15] MEDS: HEPARIN 1,000 UNITS/ML 10ML VIAL (FOR RADIOLOGY& DIALYSIS ONLY) IV (12:30)
[2017-03-15 20:58] LABS: BEDSIDE GLUCOSE 310 MG/DL (80-115)
[2017-03-15] MEDS: CLOPIDOGREL 75 MG TAB PO (21:09)
[2017-03-15] MEDS: NEBIVOLOL 5 MG TAB (BYSTOLIC) PO (21:09)
[2017-03-15] MEDS: NEPHRO-VIT TAB (NEPHROCAPS) PO (21:10)
[2017-03-15] MEDS: ROSUVASTATIN 10 MG TAB (CRESTOR) PO (21:10)
[2017-03-15] MEDS: LEVEMIR (INSULIN DETEMIR) 1 UNITS/0.01ML SC (21:11)
[2017-03-15] MEDS: LANSOPRAZOLE SUSPENSION 30 MG/10 ML ORAL SYRINGE (FIRST-LANSOPRAZOLE) PO (23:09)
[2017-03-16] MEDS: IPRATROPIUM 0.5MG/ALBUTEROL 2.5MG INH SOL UD 3ML (DUONEB)(J7620) NEB ×3 (02:00→14:00)
[2017-03-16 05:22] LABS: BEDSIDE GLUCOSE 217 MG/DL (80-115)
[2017-03-16 05:22] LABS: BEDSIDE GLUCOSE 132 MG/DL (80-115)
[2017-03-16] MEDS: HEPARIN SOD (PORCINE) 5000 UNITS/ML VIAL SC ×2 (06:48→14:58)
[2017-03-16 06:53] LABS: HEMATOCRIT 38.6 % (42.0-52.0); HEMOGLOBIN 12.2 g/dl (14.0-18.0); MEAN CORPUSCULAR HEMOGLOBIN 29.8 pg (27.0-33.0); MEAN CORPUSCULAR HGB CONC 31.6 g/dl (32.0-36.5); MEAN CORPUSCULAR VOLUME 94.4 fl (80.0-96.0); PLATELET COUNT, AUTOMATED 354 10^3/uL (150-450); RED BLOOD COUNT 4.09 10^6/uL (4.30-6.10); RED CELL DISTRIBUTION WIDTH 14.6 % (11.5-14.5); WHITE BLOOD COUNT 25.5 10^3/uL (4.0-10.0)
[2017-03-16 07:12] LABS: ALBUMIN 2.9 GM/DL (3.2-5.2); ANION GAP 6 MEQ/L (8-16); BLOOD UREA NITROGEN 36 MG/DL (7-18); CALCIUM LEVEL 8.5 MG/DL (8.8-10.2); CARBON DIOXIDE LEVEL 33 MEQ/L (21-32); CHLORIDE LEVEL 101 MEQ/L (98-107); CREATININE FOR GFR 4.59 MG/DL (0.70-1.30); GLOMERULAR FILTRATION RATE 13.6 (>49); GLUCOSE, FASTING 46 MG/DL (70-100); MAGNESIUM LEVEL 2.4 MG/DL (1.8-2.4); PHOSPHORUS LEVEL 3.4 MG/DL (2.5-4.9); POTASSIUM SERUM 3.7 MEQ/L (3.5-5.1); SODIUM LEVEL 140 MEQ/L (136-145)
[2017-03-16] MEDS: HumaLOG INSULIN (NovoLOG) PER UNIT SC ×2 (07:27→12:28)
[2017-03-16] MEDS: ADVAIR HFA 230/21MCG INHALER INH (07:45)
[2017-03-16] MEDS ORDERED: predniSONE 20 MG TAB PO (09:00)
[2017-03-16] MEDS: DOCUSATE SODIUM 100 MG CAP PO (09:18)
[2017-03-16] MEDS: BENZONATATE 100 MG CAP PO ×2 (09:18→16:00)
[2017-03-16] MEDS: predniSONE 10 MG TAB PO (09:18)
[2017-03-16] MEDS: CALCIUM CARBONATE 500 MG CHEW U/D PO ×2 (09:18→12:27)
[2017-03-16] MEDS: guaiFENesin ER 600 MG TAB PO (09:18)
[2017-03-16 10:16] LABS: BEDSIDE GLUCOSE 44 MG/DL (80-115)
[2017-03-16 11:50] LABS: BEDSIDE GLUCOSE 109 MG/DL (80-115)
[2017-03-16 17:00] LABS: BEDSIDE GLUCOSE 115 MG/DL (80-115)
== END 2017-03-16 17:26 | disposition home or self-care (01) | DRG 189 ==
LOC: M MSPAV 03-07 14:50 → M ED 15:44 → M ED INP 18:50
PROC: 5A1D70Z Performance of Urinary Filtration, Intermittent, Less than 6 Hours Per Day (ICD-10-PCS; principal; 2017-03-07)
DX: J96.00 Acute respiratory failure, unspecified whether with hypoxia or hypercapnia (principal); N18.6 End stage renal disease; E87.1 Hypo-osmolality and hyponatremia; J20.5 Acute bronchitis due to respiratory syncytial virus; E11.319 Type 2 diabetes mellitus with unspecified diabetic retinopathy without macular edema; E87.6 Hypokalemia; I12.0 Hypertensive chronic kidney disease with stage 5 chronic kidney disease or end stage renal disease; D63.1 Anemia in chronic kidney disease; E78.5 Hyperlipidemia, unspecified; Z99.2 Dependence on renal dialysis; Z86.73 Personal history of transient ischemic attack (TIA), and cerebral infarction without residual deficits; Z95.828 Presence of other vascular implants and grafts; Z90.49 Acquired absence of other specified parts of digestive tract; Z79.4 Long term (current) use of insulin; Z79.02 Long term (current) use of antithrombotics/antiplatelets; Z79.899 Other long term (current) drug therapy; Z88.6 Allergy status to analgesic agent

== ENCOUNTER 2017-05-22 09:23 | Inpatient (IN) | payer MEDICARE, OTHER ==
[2017-05-22] MEDS: PANTOPRAZOLE 40MG TAB (PROTONIX) PO (09:00)
[2017-05-22 10:56] LABS: BASO % 0.4 % (0.0-1.0); EOS # 0.1 10^3/uL (0.0-0.50); EOS % 1.2 % (0.0-3.0); HEMATOCRIT 36.8 % (42.0-52.0); HEMOGLOBIN 11.3 g/dl (13.5-17.5); IMMATURE GRANULOCYTE % 0.3 % (0-3.0); LYMPH # 0.9 10^3/uL (1.5-4.5); LYMPH % 12.5 % (24.0-44.0); MEAN CORPUSCULAR HEMOGLOBIN 30.1 pg (27.0-33.0); MEAN CORPUSCULAR HGB CONC 30.7 g/dl (32.0-36.5); MEAN CORPUSCULAR VOLUME 97.9 fl (80.0-96.0); MONO # 0.6 10^3/uL (0.0-0.8); NEUTROPHILS # 5.7 10^3/uL (1.8-7.7); NEUTROPHILS % 77.6 % (36.0-66.0); PLATELET COUNT, AUTOMATED 152 10^3/uL (150-450); RED BLOOD COUNT 3.76 10^6/uL (4.30-6.10); RED CELL DISTRIBUTION WIDTH 17.5 % (11.5-14.5); WHITE BLOOD COUNT 7.4 10^3/uL (4.0-10.0)
[2017-05-22 11:27] LABS: ANION GAP 9 MEQ/L (8-16); BLOOD UREA NITROGEN 25 MG/DL (7-18); CALCIUM LEVEL 9.6 MG/DL (8.8-10.2); CARBON DIOXIDE LEVEL 32 MEQ/L (21-32); CHLORIDE LEVEL 101 MEQ/L (98-107); CPK CREATINE PHOSPHOKINASE 52 U/L (39-308); CREATININE FOR GFR 7.26 MG/DL (0.70-1.30); GLUCOSE, FASTING 169 MG/DL (70-100); INFLUENZA A AMPLIFICATION NEGATIVE (NEGATIVE); INFLUENZA B AMPLIFICATION NEGATIVE (NEGATIVE); POTASSIUM SERUM 3.4 MEQ/L (3.5-5.1); RSV AMPLIFICATION NEGATIVE (NEGATIVE); SODIUM LEVEL 142 MEQ/L (136-145); TROPONIN I 0.05 NG/ML (< 0.10)
[2017-05-22 11:28] LABS: CK-MB VALUE MASS 1.2 NG/ML (<3.6)
[2017-05-22 12:31] LABS: C REACTIVE PROTEIN QUANTITATIV 8.15 MG/DL (0.00-0.30)
[2017-05-22] MEDS ORDERED: GLUCAGON FOR INJ 1 MG VIAL (J1610) SC (13:45)
[2017-05-22] MEDS ORDERED: GLUCOSE 4 GM CHEW TABLET PO (13:45)
[2017-05-22 14:21] LABS: BF MONONUCLEAR CELL % 81.4 % (0-0); BF POLYMORPHONUCLEAR CELL % 18.6 % (0-0); PH BODY FLUID 7.677 UNITS (NOT ESTABLISHED); RBC BODY FLUID < 2 10^3/uL (<2); SOURCE, BODY FLUID pH PLEURAL; WBC BODY FLUID 226 /uL (0-10)
[2017-05-22 14:22] LABS: APPEARANCE, BODY FLUID HAZY (CLEAR); BF DIFF IF INDICATED? YES (NO); PLEURAL FL COLOR YELLOW (COLORLESS); SOURCE, BODY FLUID PLEURAL
[2017-05-22] MEDS: IPRATROPIUM 0.5MG/ALBUTEROL 2.5MG INH SOL UD 3ML (DUONEB)(J7620) NEB ×2 (14:44→19:56)
[2017-05-22 15:14] LABS: AMYLASE, BODY FLUID 32 U/L (NOT ESTABLISHED); CHOLESTEROL, BODY FLUID < 50 MG/DL (NOT ESTABLISHED); LDH, BODY FLUID 52 U/L (NOT ESTABLISHED); SOURCE, BODY FLUID ALBUMIN PLEURAL; SOURCE, BODY FLUID AMYLASE PLEURAL; SOURCE, BODY FLUID CHOL PLEURAL; SOURCE, BODY FLUID GLUCOSE PLEURAL; SOURCE, BODY FLUID LDH PLEURAL; SOURCE, BODY FLUID TOT PROTEIN PLEURAL; SOURCE, BODY FLUID TRIG PLEURAL; TRIGLYCERIDE, BODY FLUID 27 MG/DL (NOT ESTABLISHED)
[2017-05-22] MEDS: AZITHROMYCIN INJ 500 MG, VIAL MATE ADAPTER 1 EACH in D5W 250 ML IV (16:51)
[2017-05-22 17:36] LABS: BEDSIDE GLUCOSE 207 MG/DL (80-115)
[2017-05-22] MEDS: HumaLOG INSULIN (NovoLOG) PER UNIT SC ×2 (18:13→20:12)
[2017-05-22] MEDS: CALCIUM CARBONATE 500 MG CHEW U/D PO (18:13)
[2017-05-22 18:54] LABS: CK-MB VALUE MASS 1.4 NG/ML (<3.6); CPK CREATINE PHOSPHOKINASE 57 U/L (39-308); LDH LACTATE DEHYDROGENASE 160 U/L (87-241); MB/CK RELATIVE INDEX 2.45 (< OR =4); TROPONIN I 0.04 NG/ML (< 0.10)
[2017-05-22] MEDS: ADVAIR HFA 230/21MCG INHALER INH (19:56)
[2017-05-22] MEDS: LEVEMIR (INSULIN DETEMIR) 1 UNITS/0.01ML SC (20:12)
[2017-05-22 20:15] LABS: BEDSIDE GLUCOSE 125 MG/DL (80-115)
[2017-05-22] MEDS: SENOKOT S TAB PO (20:57)
[2017-05-22] MEDS: CLOPIDOGREL 75 MG TAB PO (20:58)
[2017-05-22] MEDS: HEPARIN SOD (PORCINE) 5000 UNITS/ML VIAL SC (20:58)
[2017-05-22] MEDS: ROSUVASTATIN 10 MG TAB (CRESTOR) PO (20:58)
[2017-05-22] MEDS: NEBIVOLOL 5 MG TAB (BYSTOLIC) PO (20:58)
[2017-05-23 00:57] LABS: CPK CREATINE PHOSPHOKINASE 42 U/L (39-308)
[2017-05-23 00:58] LABS: CK-MB VALUE MASS < 1.0 NG/ML (<3.6); MB/CK RELATIVE INDEX 2.38 (< OR =4)
[2017-05-23 01:11] LABS: TROPONIN I 0.06 NG/ML (< 0.10)
[2017-05-23] MEDS: IPRATROPIUM 0.5MG/ALBUTEROL 2.5MG INH SOL UD 3ML (DUONEB)(J7620) NEB ×5 (02:19→23:03)
[2017-05-23 05:21] LABS: HEMATOCRIT 34.3 % (42.0-52.0); HEMOGLOBIN 10.6 g/dl (13.5-17.5); MEAN CORPUSCULAR HEMOGLOBIN 29.7 pg (27.0-33.0); MEAN CORPUSCULAR HGB CONC 30.9 g/dl (32.0-36.5); MEAN CORPUSCULAR VOLUME 96.1 fl (80.0-96.0); PLATELET COUNT, AUTOMATED 153 10^3/uL (150-450); RED BLOOD COUNT 3.57 10^6/uL (4.30-6.10); RED CELL DISTRIBUTION WIDTH 17.2 % (11.5-14.5); WHITE BLOOD COUNT 7.4 10^3/uL (4.0-10.0)
[2017-05-23 05:43] LABS: ALBUMIN 2.9 GM/DL (3.2-5.2); ANION GAP 11 MEQ/L (8-16); BLOOD UREA NITROGEN 30 MG/DL (7-18); CALCIUM LEVEL 8.9 MG/DL (8.8-10.2); CARBON DIOXIDE LEVEL 28 MEQ/L (21-32); CHLORIDE LEVEL 101 MEQ/L (98-107); GLUCOSE, FASTING 112 MG/DL (70-100); MAGNESIUM LEVEL 2.4 MG/DL (1.8-2.4); PHOSPHORUS LEVEL 4.7 MG/DL (2.5-4.9); POTASSIUM SERUM 3.4 MEQ/L (3.5-5.1); SODIUM LEVEL 140 MEQ/L (136-145)
[2017-05-23 06:04] LABS: CREATININE FOR GFR 8.14 MG/DL (0.70-1.30)
[2017-05-23] MEDS: HumaLOG INSULIN (NovoLOG) PER UNIT SC ×4 (07:38→21:00)
[2017-05-23] MEDS: ADVAIR HFA 230/21MCG INHALER INH ×2 (07:40→23:03)
[2017-05-23] MEDS ORDERED: SLF 3 ML SYR IV (11:00)
[2017-05-23 12:40] LABS: BEDSIDE GLUCOSE 71 MG/DL (80-115)
[2017-05-23] MEDS: CALCIUM CARBONATE 500 MG CHEW U/D PO ×3 (12:43→17:42)
[2017-05-23] MEDS: HEPARIN 1,000 UNITS/ML 10ML VIAL (FOR RADIOLOGY& DIALYSIS ONLY) IV (12:44)
[2017-05-23] MEDS: SENOKOT S TAB PO ×2 (13:12→21:22)
[2017-05-23] MEDS: PANTOPRAZOLE 40MG TAB (PROTONIX) PO (13:12)
[2017-05-23] MEDS: HEPARIN SOD (PORCINE) 5000 UNITS/ML VIAL SC ×2 (13:12→21:22)
[2017-05-23] MEDS: SLF 3 ML SYR IV ×2 (13:13→21:23)
[2017-05-23] MEDS: cefTRIAXone SOD 1 GM in D5W MINI-BAG PLUS 50 ML IV (13:13)
[2017-05-23 17:10] LABS: BEDSIDE GLUCOSE 135 MG/DL (80-115)
[2017-05-23] MEDS: AZITHROMYCIN INJ 500 MG, VIAL MATE ADAPTER 1 EACH in D5W 250 ML IV (17:41)
[2017-05-23 20:55] LABS: BEDSIDE GLUCOSE 108 MG/DL (80-115)
[2017-05-23] MEDS: NEBIVOLOL 5 MG TAB (BYSTOLIC) PO (21:00)
[2017-05-23] MEDS: CLOPIDOGREL 75 MG TAB PO (21:22)
[2017-05-23] MEDS: ROSUVASTATIN 10 MG TAB (CRESTOR) PO (21:22)
[2017-05-23] MEDS: LEVEMIR (INSULIN DETEMIR) 1 UNITS/0.01ML SC (21:23)
[2017-05-24] MEDS: IPRATROPIUM 0.5MG/ALBUTEROL 2.5MG INH SOL UD 3ML (DUONEB)(J7620) NEB ×4 (02:00→20:00)
[2017-05-24] MEDS: SLF 3 ML SYR IV ×3 (05:27→21:45)
[2017-05-24 05:32] LABS: HEMOGLOBIN 10.4 g/dl (13.5-17.5); MEAN CORPUSCULAR HEMOGLOBIN 30.1 pg (27.0-33.0); MEAN CORPUSCULAR HGB CONC 31.5 g/dl (32.0-36.5); MEAN CORPUSCULAR VOLUME 95.4 fl (80.0-96.0); PLATELET COUNT, AUTOMATED 147 10^3/uL (150-450); RED BLOOD COUNT 3.46 10^6/uL (4.30-6.10); RED CELL DISTRIBUTION WIDTH 17.2 % (11.5-14.5); WHITE BLOOD COUNT 6.4 10^3/uL (4.0-10.0)
[2017-05-24 05:49] LABS: ALBUMIN 2.7 GM/DL (3.2-5.2); ANION GAP 7 MEQ/L (8-16); BLOOD UREA NITROGEN 22 MG/DL (7-18); CALCIUM LEVEL 9.1 MG/DL (8.8-10.2); CARBON DIOXIDE LEVEL 27 MEQ/L (21-32); CHLORIDE LEVEL 104 MEQ/L (98-107); CREATININE FOR GFR 5.38 MG/DL (0.70-1.30); GLOMERULAR FILTRATION RATE 11.3 (>49); GLUCOSE, FASTING 74 MG/DL (70-100); MAGNESIUM LEVEL 2.3 MG/DL (1.8-2.4); PHOSPHORUS LEVEL 3.2 MG/DL (2.5-4.9); POTASSIUM SERUM 3.5 MEQ/L (3.5-5.1); SODIUM LEVEL 138 MEQ/L (136-145)
[2017-05-24] MEDS: HumaLOG INSULIN (NovoLOG) PER UNIT SC ×4 (07:30→21:00)
[2017-05-24] MEDS: ADVAIR HFA 230/21MCG INHALER INH ×2 (07:30→20:17)
[2017-05-24] MEDS: CALCIUM CARBONATE 500 MG CHEW U/D PO ×3 (08:40→18:05)
[2017-05-24] MEDS: HEPARIN SOD (PORCINE) 5000 UNITS/ML VIAL SC (08:40)
[2017-05-24] MEDS: PANTOPRAZOLE 40MG TAB (PROTONIX) PO (08:40)
[2017-05-24] MEDS: SENOKOT S TAB PO ×2 (08:40→21:45)
[2017-05-24 11:45] LABS: BEDSIDE GLUCOSE 113 MG/DL (80-115)
[2017-05-24] MEDS: cefTRIAXone SOD 1 GM in D5W MINI-BAG PLUS 50 ML IV (13:43)
[2017-05-24] MEDS: AZITHROMYCIN INJ 500 MG, VIAL MATE ADAPTER 1 EACH in D5W 250 ML IV (14:40)
[2017-05-24 17:18] LABS: BEDSIDE GLUCOSE 95 MG/DL (80-115)
[2017-05-24 19:49] LABS: BEDSIDE GLUCOSE 103 MG/DL (80-115)
[2017-05-24] MEDS: NEBIVOLOL 5 MG TAB (BYSTOLIC) PO (21:00)
[2017-05-24] MEDS: ROSUVASTATIN 10 MG TAB (CRESTOR) PO (21:45)
[2017-05-24] MEDS: LEVEMIR (INSULIN DETEMIR) 1 UNITS/0.01ML SC (21:45)
[2017-05-25] MEDS: IPRATROPIUM 0.5MG/ALBUTEROL 2.5MG INH SOL UD 3ML (DUONEB)(J7620) NEB ×4 (02:00→20:00)
[2017-05-25] MEDS: DEXTROSE 50% 50 ML SYRINGE IV (04:32)
[2017-05-25 04:54] LABS: BEDSIDE GLUCOSE 76 MG/DL (80-115)
[2017-05-25 05:35] LABS: HEMATOCRIT 33.1 % (42.0-52.0); HEMOGLOBIN 10.3 g/dl (13.5-17.5); MEAN CORPUSCULAR HEMOGLOBIN 29.5 pg (27.0-33.0); MEAN CORPUSCULAR HGB CONC 31.1 g/dl (32.0-36.5); MEAN CORPUSCULAR VOLUME 94.8 fl (80.0-96.0); PLATELET COUNT, AUTOMATED 182 10^3/uL (150-450); RED BLOOD COUNT 3.49 10^6/uL (4.30-6.10); WHITE BLOOD COUNT 7.9 10^3/uL (4.0-10.0)
[2017-05-25 05:37] LABS: BEDSIDE GLUCOSE 71 MG/DL (80-115)
[2017-05-25] MEDS: PANTOPRAZOLE 40MG TAB (PROTONIX) PO (05:47)
[2017-05-25] MEDS: SENOKOT S TAB PO ×2 (05:47→20:20)
[2017-05-25] MEDS: SLF 3 ML SYR IV ×3 (05:48→22:00)
[2017-05-25 05:50] LABS: ALBUMIN 2.8 GM/DL (3.2-5.2); ANION GAP 8 MEQ/L (8-16); BLOOD UREA NITROGEN 26 MG/DL (7-18); C REACTIVE PROTEIN QUANTITATIV 6.41 MG/DL (0.00-0.30); CALCIUM LEVEL 8.7 MG/DL (8.8-10.2); CARBON DIOXIDE LEVEL 27 MEQ/L (21-32); CHLORIDE LEVEL 103 MEQ/L (98-107); CREATININE FOR GFR 6.46 MG/DL (0.70-1.30); GLOMERULAR FILTRATION RATE 9.2 (>49); GLUCOSE, FASTING 69 MG/DL (70-100); MAGNESIUM LEVEL 2.5 MG/DL (1.8-2.4); POTASSIUM SERUM 3.1 MEQ/L (3.5-5.1); SODIUM LEVEL 138 MEQ/L (136-145)
[2017-05-25] MEDS: POTASSIUM CHLORIDE 10 MEQ SR TABLET PO (06:35)
[2017-05-25] MEDS: HumaLOG INSULIN (NovoLOG) PER UNIT SC ×4 (07:17→21:00)
[2017-05-25] MEDS: ADVAIR HFA 230/21MCG INHALER INH ×2 (07:40→20:06)
[2017-05-25] MEDS: CALCIUM CARBONATE 500 MG CHEW U/D PO ×3 (07:47→17:59)
[2017-05-25] MEDS ORDERED: DARBEPOETIN 100 MCG/0.5 ML *DIALYSIS* SYRINGE (J0882) IV (08:00)
[2017-05-25] MEDS: HEPARIN 1,000 UNITS/ML 10ML VIAL (FOR RADIOLOGY& DIALYSIS ONLY) IV (14:23)
[2017-05-25] MEDS: cefTRIAXone SOD 1 GM in D5W MINI-BAG PLUS 50 ML IV (15:39)
[2017-05-25] MEDS: AZITHROMYCIN 250 MG TAB PO (15:39)
[2017-05-25] MEDS: ROSUVASTATIN 10 MG TAB (CRESTOR) PO (20:20)
[2017-05-25] MEDS: CLOPIDOGREL 75 MG TAB PO (20:20)
[2017-05-25] MEDS: HEPARIN SOD (PORCINE) 5000 UNITS/ML VIAL SC (20:21)
[2017-05-25] MEDS: NEBIVOLOL 5 MG TAB (BYSTOLIC) PO (21:00)
[2017-05-25] MEDS: LEVEMIR (INSULIN DETEMIR) 1 UNITS/0.01ML SC (21:00)
[2017-05-26] MEDS: DEXTROMETHORPHAN 60MG/10ML SUSP 90ML BTL(DELSYM) PO (00:48)
[2017-05-26] MEDS: IPRATROPIUM 0.5MG/ALBUTEROL 2.5MG INH SOL UD 3ML (DUONEB)(J7620) NEB ×4 (01:31→20:00)
[2017-05-26 03:22] LABS: BEDSIDE GLUCOSE 80 MG/DL (80-115)
[2017-05-26 03:22] LABS: BEDSIDE GLUCOSE 151 MG/DL (80-115)
[2017-05-26 03:22] LABS: BEDSIDE GLUCOSE 85 MG/DL (80-115)
[2017-05-26 03:22] LABS: BEDSIDE GLUCOSE 163 MG/DL (80-115)
[2017-05-26 03:22] LABS: BEDSIDE GLUCOSE 158 MG/DL (80-115)
[2017-05-26] MEDS: ONDANSETRON 4 MG ORAL DISINTEGRATING TAB (Q0162 PER 1MG) PO (03:28)
[2017-05-26 05:32] LABS: ALBUMIN 2.8 GM/DL (3.2-5.2); ANION GAP 7 MEQ/L (8-16); BLOOD UREA NITROGEN 18 MG/DL (7-18); C REACTIVE PROTEIN QUANTITATIV 3.92 MG/DL (0.00-0.30); CARBON DIOXIDE LEVEL 25 MEQ/L (21-32); CHLORIDE LEVEL 103 MEQ/L (98-107); CREATININE FOR GFR 4.98 MG/DL (0.70-1.30); GLOMERULAR FILTRATION RATE 12.4 (>49); GLUCOSE, FASTING 136 MG/DL (70-100); MAGNESIUM LEVEL 2.2 MG/DL (1.8-2.4); SODIUM LEVEL 135 MEQ/L (136-145)
[2017-05-26 05:35] LABS: POTASSIUM SERUM 5.4 MEQ/L (3.5-5.1)
[2017-05-26] MEDS: SLF 3 ML SYR IV ×3 (06:00→21:46)
[2017-05-26] MEDS: ADVAIR HFA 230/21MCG INHALER INH ×2 (07:45→20:04)
[2017-05-26 08:09] LABS: HEMATOCRIT 34.2 % (42.0-52.0); HEMOGLOBIN 10.8 g/dl (13.5-17.5); MEAN CORPUSCULAR HEMOGLOBIN 29.9 pg (27.0-33.0); MEAN CORPUSCULAR HGB CONC 31.6 g/dl (32.0-36.5); MEAN CORPUSCULAR VOLUME 94.7 fl (80.0-96.0); PLATELET COUNT, AUTOMATED 152 10^3/uL (150-450); RED BLOOD COUNT 3.61 10^6/uL (4.30-6.10); WHITE BLOOD COUNT 6.5 10^3/uL (4.0-10.0)
[2017-05-26] MEDS: HumaLOG INSULIN (NovoLOG) PER UNIT SC ×4 (08:13→21:00)
[2017-05-26] MEDS: PANTOPRAZOLE 40MG TAB (PROTONIX) PO (09:07)
[2017-05-26] MEDS: HEPARIN SOD (PORCINE) 5000 UNITS/ML VIAL SC ×2 (09:07→21:46)
[2017-05-26] MEDS: SENOKOT S TAB PO ×2 (09:08→21:00)
[2017-05-26] MEDS: CALCIUM CARBONATE 500 MG CHEW U/D PO ×3 (09:08→16:59)
[2017-05-26 10:44] LABS: BEDSIDE GLUCOSE 35 MG/DL (80-115)
[2017-05-26 10:44] LABS: BEDSIDE GLUCOSE 31 MG/DL (80-115)
[2017-05-26] MEDS: LOSARTAN 25 MG TAB PO (12:38)
[2017-05-26] MEDS: AZITHROMYCIN 250 MG TAB PO (15:23)
[2017-05-26 18:25] LABS: BEDSIDE GLUCOSE 158 MG/DL (80-115)
[2017-05-26] MEDS: BISOPROLOL FUMARATE 5 MG TAB PO (21:00)
[2017-05-26] MEDS: LEVEMIR (INSULIN DETEMIR) 1 UNITS/0.01ML SC (21:00)
[2017-05-26] MEDS: CLOPIDOGREL 75 MG TAB PO (21:46)
[2017-05-26] MEDS: ROSUVASTATIN 10 MG TAB (CRESTOR) PO (21:46)
[2017-05-26] MEDS ORDERED: PILL CRUSHER/CUTTER 1 EACH XX (23:30)
[2017-05-27] MEDS: IPRATROPIUM 0.5MG/ALBUTEROL 2.5MG INH SOL UD 3ML (DUONEB)(J7620) NEB ×3 (01:13→20:00)
[2017-05-27 02:23] LABS: BEDSIDE GLUCOSE 189 MG/DL (80-115)
[2017-05-27 05:13] LABS: HEMATOCRIT 32.8 % (42.0-52.0); MEAN CORPUSCULAR HEMOGLOBIN 29.3 pg (27.0-33.0); MEAN CORPUSCULAR HGB CONC 30.5 g/dl (32.0-36.5); MEAN CORPUSCULAR VOLUME 96.2 fl (80.0-96.0); PLATELET COUNT, AUTOMATED 160 10^3/uL (150-450); RED BLOOD COUNT 3.41 10^6/uL (4.30-6.10); RED CELL DISTRIBUTION WIDTH 16.8 % (11.5-14.5)
[2017-05-27 05:44] LABS: ALBUMIN 2.9 GM/DL (3.2-5.2); ANION GAP 7 MEQ/L (8-16); BLOOD UREA NITROGEN 27 MG/DL (7-18); C REACTIVE PROTEIN QUANTITATIV 3.44 MG/DL (0.00-0.30); CALCIUM LEVEL 9.2 MG/DL (8.8-10.2); CARBON DIOXIDE LEVEL 30 MEQ/L (21-32); CHLORIDE LEVEL 99 MEQ/L (98-107); CREATININE FOR GFR 6.44 MG/DL (0.70-1.30); GLOMERULAR FILTRATION RATE 9.2 (>49); GLUCOSE, FASTING 133 MG/DL (70-100); MAGNESIUM LEVEL 2.4 MG/DL (1.8-2.4); PHOSPHORUS LEVEL 4.1 MG/DL (2.5-4.9); POTASSIUM SERUM 5.1 MEQ/L (3.5-5.1); SODIUM LEVEL 136 MEQ/L (136-145)
[2017-05-27] MEDS: SLF 3 ML SYR IV ×3 (06:00→21:40)
[2017-05-27] MEDS: HEPARIN SOD (PORCINE) 5000 UNITS/ML VIAL SC ×2 (06:00→21:39)
[2017-05-27] MEDS: SENOKOT S TAB PO ×2 (06:01→21:00)
[2017-05-27] MEDS: PANTOPRAZOLE 40MG TAB (PROTONIX) PO (06:01)
[2017-05-27] MEDS: ADVAIR HFA 230/21MCG INHALER INH ×2 (07:04→20:17)
[2017-05-27] MEDS: HumaLOG INSULIN (NovoLOG) PER UNIT SC ×4 (07:24→21:00)
[2017-05-27] MEDS: CALCIUM CARBONATE 500 MG CHEW U/D PO ×3 (08:00→17:46)
[2017-05-27 13:29] LABS: BEDSIDE GLUCOSE 117 MG/DL (80-115)
[2017-05-27] MEDS: LOSARTAN 25 MG TAB PO (13:33)
[2017-05-27] MEDS: AZITHROMYCIN 250 MG TAB PO (16:40)
[2017-05-27 16:59] LABS: BEDSIDE GLUCOSE 165 MG/DL (80-115)
[2017-05-27] MEDS: LEVEMIR (INSULIN DETEMIR) 1 UNITS/0.01ML SC (21:00)
[2017-05-27 21:40] LABS: BEDSIDE GLUCOSE 157 MG/DL (80-115)
[2017-05-27] MEDS: NEBIVOLOL 5 MG TAB (BYSTOLIC) PO (21:40)
[2017-05-27] MEDS: CLOPIDOGREL 75 MG TAB PO (21:40)
[2017-05-27] MEDS: ROSUVASTATIN 10 MG TAB (CRESTOR) PO (21:40)
[2017-05-28 05:24] LABS: HEMATOCRIT 32.6 % (42.0-52.0); HEMOGLOBIN 10.1 g/dl (13.5-17.5); MEAN CORPUSCULAR HEMOGLOBIN 29.4 pg (27.0-33.0); PLATELET COUNT, AUTOMATED 156 10^3/uL (150-450); RED BLOOD COUNT 3.43 10^6/uL (4.30-6.10); WHITE BLOOD COUNT 6.1 10^3/uL (4.0-10.0)
[2017-05-28] MEDS: SLF 3 ML SYR IV ×3 (05:40→22:01)
[2017-05-28 05:42] LABS: ALBUMIN 2.8 GM/DL (3.2-5.2); ANION GAP 8 MEQ/L (8-16); BLOOD UREA NITROGEN 16 MG/DL (7-18); C REACTIVE PROTEIN QUANTITATIV 4.84 MG/DL (0.00-0.30); CALCIUM LEVEL 8.9 MG/DL (8.8-10.2); CARBON DIOXIDE LEVEL 28 MEQ/L (21-32); CHLORIDE LEVEL 100 MEQ/L (98-107); CREATININE FOR GFR 4.54 MG/DL (0.70-1.30); GLOMERULAR FILTRATION RATE 13.8 (>49); GLUCOSE, FASTING 104 MG/DL (70-100); MAGNESIUM LEVEL 2.3 MG/DL (1.8-2.4); PHOSPHORUS LEVEL 3.4 MG/DL (2.5-4.9); POTASSIUM SERUM 4.7 MEQ/L (3.5-5.1); SODIUM LEVEL 136 MEQ/L (136-145)
[2017-05-28] MEDS: HEPARIN 1,000 UNITS/ML 10ML VIAL (FOR RADIOLOGY& DIALYSIS ONLY) IV (06:15)
[2017-05-28] MEDS: IPRATROPIUM 0.5MG/ALBUTEROL 2.5MG INH SOL UD 3ML (DUONEB)(J7620) NEB ×4 (06:16→20:00)
[2017-05-28] MEDS: ADVAIR HFA 230/21MCG INHALER INH ×2 (07:04→20:14)
[2017-05-28] MEDS: HumaLOG INSULIN (NovoLOG) PER UNIT SC ×4 (07:30→21:00)
[2017-05-28] MEDS: LOSARTAN 25 MG TAB PO (08:39)
[2017-05-28] MEDS: CALCIUM CARBONATE 500 MG CHEW U/D PO ×3 (08:39→17:48)
[2017-05-28] MEDS: SENOKOT S TAB PO ×2 (08:40→22:01)
[2017-05-28] MEDS: PANTOPRAZOLE 40MG TAB (PROTONIX) PO (08:40)
[2017-05-28] MEDS: HEPARIN SOD (PORCINE) 5000 UNITS/ML VIAL SC ×2 (08:40→20:44)
[2017-05-28 11:41] LABS: LDH LACTATE DEHYDROGENASE 171 U/L (87-241)
[2017-05-28 11:47] LABS: BEDSIDE GLUCOSE 144 MG/DL (80-115)
[2017-05-28] MEDS: AZITHROMYCIN 250 MG TAB PO (15:06)
[2017-05-28] MEDS: ACETAMINOPHEN 500 MG TAB PO (16:26)
[2017-05-28 17:16] LABS: BEDSIDE GLUCOSE 145 MG/DL (80-115)
[2017-05-28 20:11] LABS: BEDSIDE GLUCOSE 199 MG/DL (80-115)
[2017-05-28] MEDS: CLOPIDOGREL 75 MG TAB PO (20:44)
[2017-05-28] MEDS: NEBIVOLOL 5 MG TAB (BYSTOLIC) PO (21:00)
[2017-05-28] MEDS: ROSUVASTATIN 10 MG TAB (CRESTOR) PO (22:00)
[2017-05-29] MEDS: IPRATROPIUM 0.5MG/ALBUTEROL 2.5MG INH SOL UD 3ML (DUONEB)(J7620) NEB ×4 (02:00→20:00)
[2017-05-29 05:18] LABS: HEMATOCRIT 33.3 % (42.0-52.0); HEMOGLOBIN 10.4 g/dl (13.5-17.5); MEAN CORPUSCULAR HEMOGLOBIN 29.4 pg (27.0-33.0); MEAN CORPUSCULAR HGB CONC 31.2 g/dl (32.0-36.5); MEAN CORPUSCULAR VOLUME 94.1 fl (80.0-96.0); PLATELET COUNT, AUTOMATED 175 10^3/uL (150-450); RED BLOOD COUNT 3.54 10^6/uL (4.30-6.10); WHITE BLOOD COUNT 6.5 10^3/uL (4.0-10.0)
[2017-05-29 05:53] LABS: ALBUMIN 2.8 GM/DL (3.2-5.2); ANION GAP 7 MEQ/L (8-16); BLOOD UREA NITROGEN 23 MG/DL (7-18); CARBON DIOXIDE LEVEL 27 MEQ/L (21-32); CHLORIDE LEVEL 101 MEQ/L (98-107); CREATININE FOR GFR 5.97 MG/DL (0.70-1.30); GLOMERULAR FILTRATION RATE 10.1 (>49); GLUCOSE, FASTING 110 MG/DL (70-100); MAGNESIUM LEVEL 2.3 MG/DL (1.8-2.4); PHOSPHORUS LEVEL 3.8 MG/DL (2.5-4.9); POTASSIUM SERUM 4.9 MEQ/L (3.5-5.1); SODIUM LEVEL 135 MEQ/L (136-145)
[2017-05-29] MEDS: SENOKOT S TAB PO ×3 (05:53→21:31)
[2017-05-29] MEDS: PANTOPRAZOLE 40MG TAB (PROTONIX) PO (05:54)
[2017-05-29] MEDS: SLF 3 ML SYR IV ×3 (05:54→21:33)
[2017-05-29] MEDS: ADVAIR HFA 230/21MCG INHALER INH ×2 (07:03→20:23)
[2017-05-29] MEDS: CALCIUM CARBONATE 500 MG CHEW U/D PO ×3 (07:57→21:33)
[2017-05-29] MEDS: HumaLOG INSULIN (NovoLOG) PER UNIT SC ×4 (07:58→21:00)
[2017-05-29] MEDS: LOSARTAN 25 MG TAB PO (08:00)
[2017-05-29] MEDS: HEPARIN SOD (PORCINE) 5000 UNITS/ML VIAL SC ×2 (09:00→21:32)
[2017-05-29] MEDS: HEPARIN 1,000 UNITS/ML 10ML VIAL (FOR RADIOLOGY& DIALYSIS ONLY) IV (11:15)
[2017-05-29 11:20] LABS: SOURCE, BODY FLUID pH PLEURAL
[2017-05-29 11:35] LABS: BF MONONUCLEAR CELL % 84.5 % (0-0); BF POLYMORPHONUCLEAR CELL % 15.5 % (0-0); PH BODY FLUID > 7.800 UNITS (NOT ESTABLISHED); RBC BODY FLUID < 2 10^3/uL (<2); WBC BODY FLUID 283 /uL (0-10)
[2017-05-29 11:37] LABS: SOURCE, BODY FLUID PLEURAL
[2017-05-29 11:38] LABS: APPEARANCE, BODY FLUID HAZY (CLEAR); BF DIFF IF INDICATED? YES (NO); PLEURAL FL COLOR PALE YELLOW (COLORLESS)
[2017-05-29 11:48] LABS: AMYLASE, BODY FLUID 28 U/L (NOT ESTABLISHED); CHOLESTEROL, BODY FLUID < 50 MG/DL (NOT ESTABLISHED); LDH, BODY FLUID 82 U/L (NOT ESTABLISHED); SOURCE, BODY FLUID ALBUMIN PLEURAL; SOURCE, BODY FLUID AMYLASE PLEURAL; SOURCE, BODY FLUID CHOL PLEURAL; SOURCE, BODY FLUID GLUCOSE PLEURAL; SOURCE, BODY FLUID LDH PLEURAL; SOURCE, BODY FLUID TOT PROTEIN PLEURAL; SOURCE, BODY FLUID TRIG PLEURAL; TOTAL PROTEIN, BODY FLUID 2.9 G/DL (NOT ESTABLISHED); TRIGLYCERIDE, BODY FLUID 19 MG/DL (NOT ESTABLISHED)
[2017-05-29 20:51] LABS: BEDSIDE GLUCOSE 87 MG/DL (80-115)
[2017-05-29] MEDS: CLOPIDOGREL 75 MG TAB PO (21:31)
[2017-05-29] MEDS: ROSUVASTATIN 10 MG TAB (CRESTOR) PO (21:31)
[2017-05-29] MEDS: NEBIVOLOL 5 MG TAB (BYSTOLIC) PO (21:32)
[2017-05-30] MEDS: IPRATROPIUM 0.5MG/ALBUTEROL 2.5MG INH SOL UD 3ML (DUONEB)(J7620) NEB ×4 (02:00→23:52)
[2017-05-30] MEDS: SENOKOT S TAB PO ×2 (05:35→20:43)
[2017-05-30] MEDS: HEPARIN SOD (PORCINE) 5000 UNITS/ML VIAL SC ×2 (05:35→20:41)
[2017-05-30] MEDS: SLF 3 ML SYR IV ×3 (05:36→20:44)
[2017-05-30] MEDS: PANTOPRAZOLE 40MG TAB (PROTONIX) PO (05:36)
[2017-05-30] MEDS: HumaLOG INSULIN (NovoLOG) PER UNIT SC ×4 (07:30→20:43)
[2017-05-30] MEDS: CALCIUM CARBONATE 500 MG CHEW U/D PO ×4 (07:40→18:23)
[2017-05-30] MEDS: ADVAIR HFA 230/21MCG INHALER INH (07:48)
[2017-05-30 07:54] LABS: BEDSIDE GLUCOSE 161 MG/DL (80-115)
[2017-05-30] MEDS: LOSARTAN 25 MG TAB PO (09:00)
[2017-05-30 11:45] LABS: BEDSIDE GLUCOSE 152 MG/DL (80-115)
[2017-05-30 18:18] LABS: BEDSIDE GLUCOSE 137 MG/DL (80-115)
[2017-05-30 20:14] LABS: BEDSIDE GLUCOSE 196 MG/DL (80-115)
[2017-05-30] MEDS: NEBIVOLOL 5 MG TAB (BYSTOLIC) PO (20:42)
[2017-05-30] MEDS: ROSUVASTATIN 10 MG TAB (CRESTOR) PO (20:42)
[2017-05-30] MEDS: CLOPIDOGREL 75 MG TAB PO (20:43)
[2017-05-31] MEDS: ADVAIR HFA 230/21MCG INHALER INH ×3 (01:23→22:39)
[2017-05-31] MEDS: IPRATROPIUM 0.5MG/ALBUTEROL 2.5MG INH SOL UD 3ML (DUONEB)(J7620) NEB ×5 (01:23→22:39)
[2017-05-31] MEDS: SLF 3 ML SYR IV ×3 (06:00→20:34)
[2017-05-31] MEDS: HumaLOG INSULIN (NovoLOG) PER UNIT SC ×4 (07:30→20:43)
[2017-05-31 07:49] LABS: BEDSIDE GLUCOSE 172 MG/DL (80-115)
[2017-05-31] MEDS: CALCIUM CARBONATE 500 MG CHEW U/D PO ×3 (08:22→17:04)
[2017-05-31] MEDS: SENOKOT S TAB PO ×2 (08:23→20:34)
[2017-05-31] MEDS: LOSARTAN 25 MG TAB PO (08:23)
[2017-05-31] MEDS: HEPARIN SOD (PORCINE) 5000 UNITS/ML VIAL SC ×2 (08:23→20:34)
[2017-05-31] MEDS: PANTOPRAZOLE 40MG TAB (PROTONIX) PO (08:23)
[2017-05-31 09:36] LABS: BEDSIDE GLUCOSE 121 MG/DL (80-115)
[2017-05-31 11:20] LABS: BEDSIDE GLUCOSE 139 MG/DL (80-115)
[2017-05-31] MEDS: HEPARIN 1,000 UNITS/ML 10ML VIAL (FOR RADIOLOGY& DIALYSIS ONLY) IV (13:15)
[2017-05-31] MEDS ORDERED: VARIBAR NECTAR 40% w/v 240ML SUSP BTL As Ordered (13:26)
[2017-05-31] MEDS ORDERED: VARIBAR PUDDING 40% w/v 230ML TUBE As Ordered (13:26)
[2017-05-31] MEDS ORDERED: E-Z-PAQUE 96% w/w SUSP 176GM BTL As Ordered (13:27)
[2017-05-31 16:37] LABS: BEDSIDE GLUCOSE 109 MG/DL (80-115)
[2017-05-31] MEDS: CLOPIDOGREL 75 MG TAB PO (20:34)
[2017-05-31] MEDS: ROSUVASTATIN 10 MG TAB (CRESTOR) PO (20:34)
[2017-05-31] MEDS: NEBIVOLOL 5 MG TAB (BYSTOLIC) PO (20:43)
[2017-05-31 20:46] LABS: BEDSIDE GLUCOSE 298 MG/DL (80-115)
[2017-06-01] MEDS: IPRATROPIUM 0.5MG/ALBUTEROL 2.5MG INH SOL UD 3ML (DUONEB)(J7620) NEB ×4 (02:00→19:51)
[2017-06-01 05:48] LABS: BASO # 0.1 10^3/uL (0.0-0.2); BASO % 0.9 % (0.0-1.0); EOS # 0.1 10^3/uL (0.0-0.50); EOS % 1.6 % (0.0-3.0); HEMATOCRIT 38.3 % (42.0-52.0); HEMOGLOBIN 12.2 g/dl (13.5-17.5); IMMATURE GRANULOCYTE % 0.3 % (0-3.0); LYMPH # 1.8 10^3/uL (1.5-4.5); LYMPH % 20.7 % (24.0-44.0); MEAN CORPUSCULAR HEMOGLOBIN 29.7 pg (27.0-33.0); MEAN CORPUSCULAR HGB CONC 31.9 g/dl (32.0-36.5); MEAN CORPUSCULAR VOLUME 93.2 fl (80.0-96.0); MONO # 0.8 10^3/uL (0.0-0.8); MONO % 9.8 % (0.0-5.0); NEUTROPHILS # 5.7 10^3/uL (1.8-7.7); NEUTROPHILS % 66.7 % (36.0-66.0); PLATELET COUNT, AUTOMATED 208 10^3/uL (150-450); RED BLOOD COUNT 4.11 10^6/uL (4.30-6.10); RED CELL DISTRIBUTION WIDTH 17.2 % (11.5-14.5); WHITE BLOOD COUNT 8.6 10^3/uL (4.0-10.0)
[2017-06-01 06:10] LABS: ANION GAP 8 MEQ/L (8-16); BLOOD UREA NITROGEN 14 MG/DL (7-18); CALCIUM LEVEL 9.4 MG/DL (8.8-10.2); CARBON DIOXIDE LEVEL 28 MEQ/L (21-32); CHLORIDE LEVEL 101 MEQ/L (98-107); CREATININE FOR GFR 4.88 MG/DL (0.70-1.30); GLOMERULAR FILTRATION RATE 12.7 (>49); GLUCOSE, FASTING 187 MG/DL (70-100); POTASSIUM SERUM 4.3 MEQ/L (3.5-5.1); SODIUM LEVEL 137 MEQ/L (136-145)
[2017-06-01] MEDS: CALCIUM CARBONATE 500 MG CHEW U/D PO ×3 (06:37→18:05)
[2017-06-01] MEDS: HEPARIN SOD (PORCINE) 5000 UNITS/ML VIAL SC ×2 (06:38→21:15)
[2017-06-01] MEDS: SENOKOT S TAB PO ×2 (06:38→21:15)
[2017-06-01] MEDS: LOSARTAN 25 MG TAB PO (06:38)
[2017-06-01] MEDS: PANTOPRAZOLE 40MG TAB (PROTONIX) PO (06:38)
[2017-06-01] MEDS: SLF 3 ML SYR IV ×3 (06:39→21:17)
[2017-06-01] MEDS: HumaLOG INSULIN (NovoLOG) PER UNIT SC ×4 (06:45→21:16)
[2017-06-01 06:54] LABS: BEDSIDE GLUCOSE 177 MG/DL (80-115)
[2017-06-01] MEDS: ADVAIR HFA 230/21MCG INHALER INH ×2 (07:33→19:51)
[2017-06-01] MEDS ORDERED: E-Z-PAQUE 96% w/w SUSP 176GM BTL As Ordered (11:07)
[2017-06-01] MEDS ORDERED: VARIBAR PUDDING 40% w/v 230ML TUBE As Ordered (11:07)
[2017-06-01] MEDS ORDERED: VARIBAR NECTAR 40% w/v 240ML SUSP BTL As Ordered (11:07)
[2017-06-01 11:13] LABS: BEDSIDE GLUCOSE 136 MG/DL (80-115)
[2017-06-01] MEDS: HEPARIN 1,000 UNITS/ML 10ML VIAL (FOR RADIOLOGY& DIALYSIS ONLY) IV (11:15)
[2017-06-01 16:47] LABS: BEDSIDE GLUCOSE 171 MG/DL (80-115)
[2017-06-01 20:02] LABS: BEDSIDE GLUCOSE 255 MG/DL (80-115)
[2017-06-01] MEDS: NEBIVOLOL 5 MG TAB (BYSTOLIC) PO (21:00)
[2017-06-01] MEDS: CLOPIDOGREL 75 MG TAB PO (21:15)
[2017-06-01] MEDS: ROSUVASTATIN 10 MG TAB (CRESTOR) PO (21:15)
[2017-06-02] MEDS: IPRATROPIUM 0.5MG/ALBUTEROL 2.5MG INH SOL UD 3ML (DUONEB)(J7620) NEB ×2 (01:42→07:22)
[2017-06-02 05:11] LABS: BASO # 0.1 10^3/uL (0.0-0.2); BASO % 0.9 % (0.0-1.0); EOS # 0.2 10^3/uL (0.0-0.50); HEMATOCRIT 37.7 % (42.0-52.0); HEMOGLOBIN 12.2 g/dl (13.5-17.5); IMMATURE GRANULOCYTE % 0.5 % (0-3.0); LYMPH # 1.7 10^3/uL (1.5-4.5); LYMPH % 21.3 % (24.0-44.0); MEAN CORPUSCULAR HEMOGLOBIN 29.9 pg (27.0-33.0); MEAN CORPUSCULAR HGB CONC 32.4 g/dl (32.0-36.5); MEAN CORPUSCULAR VOLUME 92.4 fl (80.0-96.0); MONO # 0.8 10^3/uL (0.0-0.8); MONO % 9.3 % (0.0-5.0); NEUTROPHILS # 5.4 10^3/uL (1.8-7.7); PLATELET COUNT, AUTOMATED 206 10^3/uL (150-450); RED BLOOD COUNT 4.08 10^6/uL (4.30-6.10); RED CELL DISTRIBUTION WIDTH 17.3 % (11.5-14.5); WHITE BLOOD COUNT 8.2 10^3/uL (4.0-10.0)
[2017-06-02] MEDS: SLF 3 ML SYR IV (05:14)
[2017-06-02 05:32] LABS: ANION GAP 7 MEQ/L (8-16); BLOOD UREA NITROGEN 13 MG/DL (7-18); CALCIUM LEVEL 9.7 MG/DL (8.8-10.2); CARBON DIOXIDE LEVEL 30 MEQ/L (21-32); CHLORIDE LEVEL 98 MEQ/L (98-107); CREATININE FOR GFR 4.28 MG/DL (0.70-1.30); GLOMERULAR FILTRATION RATE 14.8 (>49); GLUCOSE, FASTING 140 MG/DL (70-100); POTASSIUM SERUM 4.1 MEQ/L (3.5-5.1); SODIUM LEVEL 135 MEQ/L (136-145)
[2017-06-02] MEDS: ADVAIR HFA 230/21MCG INHALER INH (07:20)
[2017-06-02] MEDS: CALCIUM CARBONATE 500 MG CHEW U/D PO (07:34)
[2017-06-02] MEDS: HumaLOG INSULIN (NovoLOG) PER UNIT SC ×2 (07:35→11:35)
[2017-06-02] MEDS: HEPARIN SOD (PORCINE) 5000 UNITS/ML VIAL SC (09:00)
[2017-06-02] MEDS: SENOKOT S TAB PO (09:00)
[2017-06-02] MEDS: PANTOPRAZOLE 40MG TAB (PROTONIX) PO (10:18)
[2017-06-02] MEDS: LOSARTAN 25 MG TAB PO (10:18)
== END 2017-06-02 12:07 | disposition home or self-care (01) | DRG 186 ==
LOC: M ED 09:23 → M ED INP 13:36 → M PCU 16:03
PROC: 0W993ZZ Drainage of Right Pleural Cavity, Percutaneous Approach (ICD-10-PCS; principal; 2017-05-22)
PROC: 5A1D70Z Performance of Urinary Filtration, Intermittent, Less than 6 Hours Per Day (ICD-10-PCS; 2017-05-23)
PROC: 0W9B3ZZ Drainage of Left Pleural Cavity, Percutaneous Approach (ICD-10-PCS; 2017-05-25)
PROC: 0W993ZZ Drainage of Right Pleural Cavity, Percutaneous Approach (ICD-10-PCS; 2017-05-29)
DX: J90 Pleural effusion, not elsewhere classified (principal); N18.6 End stage renal disease; J18.9 Pneumonia, unspecified organism; I50.23 Acute on chronic systolic (congestive) heart failure; I13.2 Hypertensive heart and chronic kidney disease with heart failure and with stage 5 chronic kidney disease, or end stage renal disease; E46 Unspecified protein-calorie malnutrition; Z66 Do not resuscitate; J44.9 Chronic obstructive pulmonary disease, unspecified; E11.9 Type 2 diabetes mellitus without complications; I25.10 Atherosclerotic heart disease of native coronary artery without angina pectoris; I69.320 Aphasia following cerebral infarction; I25.5 Ischemic cardiomyopathy; R13.10 Dysphagia, unspecified; E87.5 Hyperkalemia; D63.1 Anemia in chronic kidney disease; E78.5 Hyperlipidemia, unspecified; F32.9 Major depressive disorder, single episode, unspecified; N40.0 Benign prostatic hyperplasia without lower urinary tract symptoms; Z99.2 Dependence on renal dialysis; Z95.828 Presence of other vascular implants and grafts; Z88.6 Allergy status to analgesic agent; Z90.49 Acquired absence of other specified parts of digestive tract; Z79.4 Long term (current) use of insulin; Z79.02 Long term (current) use of antithrombotics/antiplatelets; Z79.899 Other long term (current) drug therapy

== ENCOUNTER → 2017-06-10 | Outpatient (CLI) | payer MEDICARE, OTHER | LOC: M WUC 16:07 | DX: J90 Pleural effusion, not elsewhere classified (principal) | CPT/HCPCS: 71046 ==

== ENCOUNTER 2017-07-12 21:06 | Inpatient (IN) | payer MEDICARE, OTHER ==
[2017-07-12 23:18] LABS: BASO % 0.5 % (0.0-1.0); EOS # 0.4 10^3/uL (0.0-0.50); EOS % 5.5 % (0.0-3.0); HEMATOCRIT 31.1 % (42.0-52.0); HEMOGLOBIN 9.8 g/dl (13.5-17.5); IMMATURE GRANULOCYTE % 0.9 % (0-3.0); LYMPH # 0.8 10^3/uL (1.5-4.5); LYMPH % 10.4 % (24.0-44.0); MEAN CORPUSCULAR HEMOGLOBIN 29.9 pg (27.0-33.0); MEAN CORPUSCULAR HGB CONC 31.5 g/dl (32.0-36.5); MEAN CORPUSCULAR VOLUME 94.8 fl (80.0-96.0); MONO # 0.6 10^3/uL (0.0-0.8); MONO % 7.4 % (0.0-5.0); NEUTROPHILS # 5.6 10^3/uL (1.8-7.7); NEUTROPHILS % 75.3 % (36.0-66.0); PLATELET COUNT, AUTOMATED 117 10^3/uL (150-450); RED BLOOD COUNT 3.28 10^6/uL (4.30-6.10); RED CELL DISTRIBUTION WIDTH 16.3 % (11.5-14.5); WHITE BLOOD COUNT 7.4 10^3/uL (4.0-10.0)
[2017-07-12 23:34] LABS: ANION GAP 6 MEQ/L (8-16); BLOOD UREA NITROGEN 21 MG/DL (7-18); CALCIUM LEVEL 8.8 MG/DL (8.8-10.2); CARBON DIOXIDE LEVEL 34 MEQ/L (21-32); CHLORIDE LEVEL 100 MEQ/L (98-107); CREATININE FOR GFR 4.26 MG/DL (0.70-1.30); GLOMERULAR FILTRATION RATE 14.9 (>49); GLUCOSE, FASTING 191 MG/DL (70-100); POTASSIUM SERUM 3.6 MEQ/L (3.5-5.1); SODIUM LEVEL 140 MEQ/L (136-145)
[2017-07-13] MEDS ORDERED: NORCO, ANEXSIA 5/325MG TABLET (HYDROcodone/ACETAMINOPHEN) PO (01:15)
[2017-07-13] MEDS ORDERED: ALBUTEROL 90 MCG/ACT 8GM HFA INHALER INH (02:15)
[2017-07-13] MEDS: CLOPIDOGREL 75 MG TAB PO ×2 (03:49→20:22)
[2017-07-13] MEDS: CARVedilol 3.125 MG TAB PO ×3 (03:49→20:22)
[2017-07-13] MEDS: ENTRESTO 24-26MG TABLET (SACUBITRIL/VALSARTAN) PO ×3 (03:49→20:21)
[2017-07-13] MEDS: ROSUVASTATIN 10 MG TAB (CRESTOR) PO ×2 (03:49→20:22)
[2017-07-13 06:29] LABS: ANION GAP 6 MEQ/L (8-16); BLOOD UREA NITROGEN 24 MG/DL (7-18); CALCIUM LEVEL 8.8 MG/DL (8.8-10.2); CARBON DIOXIDE LEVEL 33 MEQ/L (21-32); CHLORIDE LEVEL 100 MEQ/L (98-107); CREATININE FOR GFR 4.81 MG/DL (0.70-1.30); GLOMERULAR FILTRATION RATE 12.9 (>49); GLUCOSE, FASTING 148 MG/DL (70-100); POTASSIUM SERUM 3.6 MEQ/L (3.5-5.1); SODIUM LEVEL 139 MEQ/L (136-145)
[2017-07-13 06:42] LABS: INR 1.13; PROTHROMBIN TIME 14.7 SECONDS (12.4-14.5)
[2017-07-13] MEDS ORDERED: DEXTROSE 50% 50 ML SYRINGE IV (08:00)
[2017-07-13] MEDS ORDERED: GLUCOSE 4 GM CHEW TABLET PO (08:00)
[2017-07-13] MEDS ORDERED: GLUCAGON FOR INJ 1 MG VIAL (J1610) SC (08:00)
[2017-07-13] MEDS: HEPARIN SOD (PORCINE) 5000 UNITS/ML VIAL SQ ×2 (09:00→20:23)
[2017-07-13] MEDS: PANTOPRAZOLE 40MG TAB (PROTONIX) PO (09:12)
[2017-07-13] MEDS: CALCIUM CARBONATE 500 MG CHEW U/D PO ×3 (09:13→17:40)
[2017-07-13] MEDS: HumaLOG INSULIN (NovoLOG) PER UNIT SC ×4 (09:14→20:22)
[2017-07-13] MEDS ORDERED: SLF 3 ML SYR IV (11:30)
[2017-07-13 11:47] LABS: BEDSIDE GLUCOSE 138 MG/DL (80-115)
[2017-07-13 12:17] LABS: TROPONIN I 0.02 NG/ML (< 0.10)
[2017-07-13 12:18] LABS: CK-MB VALUE MASS < 1.0 NG/ML (<3.6); CPK CREATINE PHOSPHOKINASE 23 U/L (39-308); MB/CK RELATIVE INDEX 4.34 (< OR =4)
[2017-07-13] MEDS: SLF 3 ML SYR IV ×2 (14:00→20:23)
[2017-07-13 14:30] LABS: LDH LACTATE DEHYDROGENASE 215 U/L (87-241)
[2017-07-13 15:33] LABS: PH BODY FLUID 7.712 UNITS (NOT ESTABLISHED); SOURCE, BODY FLUID pH PLEURAL
[2017-07-13 15:37] LABS: AMYLASE, BODY FLUID 15 U/L (NOT ESTABLISHED); CHOLESTEROL, BODY FLUID < 50 MG/DL (NOT ESTABLISHED); LDH, BODY FLUID 158 U/L (NOT ESTABLISHED); SOURCE, BODY FLUID ALBUMIN PLEURAL; SOURCE, BODY FLUID AMYLASE PLEURAL; SOURCE, BODY FLUID CHOL PLEURAL; SOURCE, BODY FLUID GLUCOSE PLEURAL; SOURCE, BODY FLUID LDH PLEURAL; SOURCE, BODY FLUID TOT PROTEIN PLEURAL; SOURCE, BODY FLUID TRIG PLEURAL; TOTAL PROTEIN, BODY FLUID 3.4 G/DL (NOT ESTABLISHED); TRIGLYCERIDE, BODY FLUID 36 MG/DL (NOT ESTABLISHED)
[2017-07-13 16:11] LABS: BEDSIDE GLUCOSE 211 MG/DL (80-115)
[2017-07-13 17:05] LABS: BF MONONUCLEAR CELL % 92.1 % (0-0); BF POLYMORPHONUCLEAR CELL % 7.9 % (0-0); RBC BODY FLUID 32 10^3/uL (<2); WBC BODY FLUID 1055 /uL (0-10)
[2017-07-13 17:13] LABS: PLEURAL FL COLOR RED (COLORLESS); SOURCE, BODY FLUID PLEURAL
[2017-07-13 17:14] LABS: APPEARANCE, BODY FLUID CLOUDY (CLEAR); BF DIFF IF INDICATED? YES (NO)
[2017-07-13 17:52] LABS: CK-MB VALUE MASS < 1.0 NG/ML (<3.6); CPK CREATINE PHOSPHOKINASE 23 U/L (39-308); MB/CK RELATIVE INDEX 4.34 (< OR =4); TROPONIN I 0.02 NG/ML (< 0.10)
[2017-07-13] MEDS: ACETAMINOPHEN TAB 650MG DOSE (2X325MG) PO (18:16)
[2017-07-14 06:14] LABS: HEMATOCRIT 27.9 % (42.0-52.0); MEAN CORPUSCULAR HEMOGLOBIN 30.4 pg (27.0-33.0); MEAN CORPUSCULAR HGB CONC 32.3 g/dl (32.0-36.5); MEAN CORPUSCULAR VOLUME 94.3 fl (80.0-96.0); PLATELET COUNT, AUTOMATED 135 10^3/uL (150-450); RED BLOOD COUNT 2.96 10^6/uL (4.30-6.10); RED CELL DISTRIBUTION WIDTH 16.4 % (11.5-14.5); WHITE BLOOD COUNT 6.1 10^3/uL (4.0-10.0)
[2017-07-14] MEDS: CALCIUM CARBONATE 500 MG CHEW U/D PO ×3 (06:16→18:07)
[2017-07-14] MEDS: PANTOPRAZOLE 40MG TAB (PROTONIX) PO (06:16)
[2017-07-14] MEDS: SLF 3 ML SYR IV ×3 (06:16→22:00)
[2017-07-14] MEDS: ENTRESTO 24-26MG TABLET (SACUBITRIL/VALSARTAN) PO ×2 (06:17→20:42)
[2017-07-14] MEDS: CARVedilol 3.125 MG TAB PO ×2 (06:17→20:43)
[2017-07-14 06:41] LABS: ALBUMIN 2.4 GM/DL (3.2-5.2); ANION GAP 9 MEQ/L (8-16); BLOOD UREA NITROGEN 37 MG/DL (7-18); CALCIUM LEVEL 8.6 MG/DL (8.8-10.2); CARBON DIOXIDE LEVEL 30 MEQ/L (21-32); CHLORIDE LEVEL 99 MEQ/L (98-107); CREATININE FOR GFR 6.37 MG/DL (0.70-1.30); GLOMERULAR FILTRATION RATE 9.3 (>49); GLUCOSE, FASTING 144 MG/DL (70-100); PHOSPHORUS LEVEL 3.8 MG/DL (2.5-4.9); POTASSIUM SERUM 4.1 MEQ/L (3.5-5.1); SODIUM LEVEL 138 MEQ/L (136-145)
[2017-07-14] MEDS: HumaLOG INSULIN (NovoLOG) PER UNIT SC ×4 (07:30→20:43)
[2017-07-14 08:34] LABS: TOTAL PROTEIN 6.2 GM/DL (6.4-8.2)
[2017-07-14] MEDS: HEPARIN 1,000 UNITS/ML 10ML VIAL (FOR RADIOLOGY& DIALYSIS ONLY) IV (10:45)
[2017-07-14 13:06] LABS: BEDSIDE GLUCOSE 168 MG/DL (80-115)
[2017-07-14] MEDS: CALCITRIOL 0.25 MCG CAP (S0169) PO (13:45)
[2017-07-14] MEDS: HEPARIN SOD (PORCINE) 5000 UNITS/ML VIAL SQ ×2 (13:45→20:43)
[2017-07-14 17:46] LABS: BEDSIDE GLUCOSE 264 MG/DL (80-115)
[2017-07-14 20:27] LABS: BEDSIDE GLUCOSE 163 MG/DL (80-115)
[2017-07-14] MEDS: CLOPIDOGREL 75 MG TAB PO (20:42)
[2017-07-14] MEDS: ROSUVASTATIN 10 MG TAB (CRESTOR) PO (20:42)
[2017-07-15] MEDS: SLF 3 ML SYR IV (05:15)
[2017-07-15 05:55] LABS: HEMATOCRIT 27.1 % (42.0-52.0); HEMOGLOBIN 8.5 g/dl (13.5-17.5); MEAN CORPUSCULAR HEMOGLOBIN 29.8 pg (27.0-33.0); MEAN CORPUSCULAR HGB CONC 31.4 g/dl (32.0-36.5); MEAN CORPUSCULAR VOLUME 95.1 fl (80.0-96.0); RED BLOOD COUNT 2.85 10^6/uL (4.30-6.10); RED CELL DISTRIBUTION WIDTH 16.3 % (11.5-14.5); WHITE BLOOD COUNT 6.7 10^3/uL (4.0-10.0)
[2017-07-15 06:08] LABS: ALBUMIN 2.4 GM/DL (3.2-5.2); ANION GAP 6 MEQ/L (8-16); BLOOD UREA NITROGEN 30 MG/DL (7-18); CALCIUM LEVEL 8.9 MG/DL (8.8-10.2); CARBON DIOXIDE LEVEL 31 MEQ/L (21-32); CHLORIDE LEVEL 103 MEQ/L (98-107); GLOMERULAR FILTRATION RATE 12.9 (>49); GLUCOSE, FASTING 197 MG/DL (70-100); PHOSPHORUS LEVEL 2.7 MG/DL (2.5-4.9); POTASSIUM SERUM 4.1 MEQ/L (3.5-5.1); SODIUM LEVEL 140 MEQ/L (136-145)
[2017-07-15 06:27] LABS: IMMATURE PLATELET FRACTION % 5.1 % (0.0-10.9); PLATELET COUNT, AUTOMATED 76 10^3/uL (150-450)
[2017-07-15] MEDS: HumaLOG INSULIN (NovoLOG) PER UNIT SC (08:27)
[2017-07-15] MEDS: CALCIUM CARBONATE 500 MG CHEW U/D PO (08:28)
[2017-07-15] MEDS: HEPARIN SOD (PORCINE) 5000 UNITS/ML VIAL SQ (08:28)
[2017-07-15] MEDS: PANTOPRAZOLE 40MG TAB (PROTONIX) PO (08:28)
[2017-07-15] MEDS: ENTRESTO 24-26MG TABLET (SACUBITRIL/VALSARTAN) PO (08:28)
[2017-07-15] MEDS: CARVedilol 3.125 MG TAB PO (08:28)
[2017-07-19] MEDS ORDERED: VITAMIN D 50,000 UNITS CAPSULE (ERGOCALCIFEROL 1.25MG) PO (09:00)
== END 2017-07-15 11:30 | disposition home or self-care (01) | DRG 291 ==
LOC: M ED INP 07-13 01:08 → M MSPAV 07-13 03:23 → M PCU 07-13 10:44 → M ED 21:06
PROC: 0W993ZZ Drainage of Right Pleural Cavity, Percutaneous Approach (ICD-10-PCS; principal; 2017-07-13)
PROC: 5A1D70Z Performance of Urinary Filtration, Intermittent, Less than 6 Hours Per Day (ICD-10-PCS; 2017-07-14)
DX: I13.2 Hypertensive heart and chronic kidney disease with heart failure and with stage 5 chronic kidney disease, or end stage renal disease (principal); I50.23 Acute on chronic systolic (congestive) heart failure; N18.6 End stage renal disease; J96.01 Acute respiratory failure with hypoxia; E11.9 Type 2 diabetes mellitus without complications; E78.5 Hyperlipidemia, unspecified; D63.1 Anemia in chronic kidney disease; F32.9 Major depressive disorder, single episode, unspecified; I25.10 Atherosclerotic heart disease of native coronary artery without angina pectoris; R53.1 Weakness; N40.0 Benign prostatic hyperplasia without lower urinary tract symptoms; Z88.6 Allergy status to analgesic agent; Z95.1 Presence of aortocoronary bypass graft; Z90.49 Acquired absence of other specified parts of digestive tract; Z99.2 Dependence on renal dialysis; Z79.4 Long term (current) use of insulin; Z95.828 Presence of other vascular implants and grafts; Z86.73 Personal history of transient ischemic attack (TIA), and cerebral infarction without residual deficits; Z91.19 Patient's noncompliance with other medical treatment and regimen

== ENCOUNTER 2017-08-16 19:59 | Inpatient (IN) | payer MEDICARE, OTHER ==
[2017-08-16 21:53] LABS: HEMATOCRIT 31.6 % (42.0-52.0); HEMOGLOBIN 10.1 g/dl (13.5-17.5); MEAN CORPUSCULAR HEMOGLOBIN 29.9 pg (27.0-33.0); MEAN CORPUSCULAR VOLUME 93.5 fl (80.0-96.0); RED BLOOD COUNT 3.38 10^6/uL (4.30-6.10); RED CELL DISTRIBUTION WIDTH 15.4 % (11.5-14.5); WHITE BLOOD COUNT 5.7 10^3/uL (4.0-10.0)
[2017-08-16 22:18] LABS: PLATELET COUNT, AUTOMATED 55 10^3/uL (150-450)
[2017-08-16 22:19] LABS: IMMATURE PLATELET FRACTION % 4.7 % (0.0-10.9)
[2017-08-16 22:26] LABS: ANION GAP 7 MEQ/L (8-16); BLOOD UREA NITROGEN 16 MG/DL (7-18); CALCIUM LEVEL 8.9 MG/DL (8.8-10.2); CARBON DIOXIDE LEVEL 31 MEQ/L (21-32); CHLORIDE LEVEL 101 MEQ/L (98-107); CK-MB VALUE MASS 1.8 NG/ML (<3.6); CPK CREATINE PHOSPHOKINASE 43 U/L (39-308); CREATININE FOR GFR 3.54 MG/DL (0.70-1.30); GLOMERULAR FILTRATION RATE 18.4 (>49); GLUCOSE, FASTING 130 MG/DL (70-100); MB/CK RELATIVE INDEX 4.18 (< OR =4); POTASSIUM SERUM 3.7 MEQ/L (3.5-5.1); SODIUM LEVEL 139 MEQ/L (136-145); TROPONIN I 0.06 NG/ML (< 0.10)
[2017-08-17] MEDS ORDERED: CALCIUM CARBONATE 500 MG CHEW U/D PO (01:30)
[2017-08-17] MEDS ORDERED: ALBUTEROL 90 MCG/ACT 8GM HFA INHALER INH (01:30)
[2017-08-17] MEDS ORDERED: DEXTROSE 50% 50 ML SYRINGE IV ×2 (01:30→11:45)
[2017-08-17] MEDS ORDERED: GLUCAGON FOR INJ 1 MG VIAL (J1610) SC ×2 (01:30→11:45)
[2017-08-17] MEDS ORDERED: GLUCOSE 4 GM CHEW TABLET PO ×2 (01:30→11:45)
[2017-08-17] MEDS: PANTOPRAZOLE 40MG TAB (PROTONIX) PO ×2 (02:33→20:33)
[2017-08-17] MEDS: ROSUVASTATIN 10 MG TAB (CRESTOR) PO ×2 (02:34→20:33)
[2017-08-17] MEDS: CLOPIDOGREL 75 MG TAB PO ×2 (02:34→20:33)
[2017-08-17] MEDS: CARVedilol 3.125 MG TAB PO ×3 (02:34→20:34)
[2017-08-17] MEDS: ENTRESTO 24-26MG TABLET (SACUBITRIL/VALSARTAN) PO ×3 (02:50→21:40)
[2017-08-17] MEDS ORDERED: SODIUM CHLORIDE 0.9% INJ 10 ML SYR IV (03:30)
[2017-08-17 04:43] LABS: C REACTIVE PROTEIN QUANTITATIV 1.47 MG/DL (0.00-0.30)
[2017-08-17 04:43] LABS: MAGNESIUM LEVEL 2.2 MG/DL (1.8-2.4)
[2017-08-17 04:48] LABS: TROPONIN I 0.07 NG/ML (< 0.10)
[2017-08-17] MEDS: SODIUM CHLORIDE 0.9% INJ 10 ML SYR IV ×3 (05:56→20:34)
[2017-08-17 07:32] LABS: BEDSIDE GLUCOSE 102 MG/DL (80-115)
[2017-08-17] MEDS: CETIRIZINE (ZyrTEC) 10 MG TAB PO (10:52)
[2017-08-17 11:44] LABS: TROPONIN I 0.07 NG/ML (< 0.10)
[2017-08-17 12:08] LABS: BEDSIDE GLUCOSE 150 MG/DL (80-115)
[2017-08-17] MEDS: HumaLOG INSULIN (NovoLOG) PER UNIT SC ×3 (12:19→20:26)
[2017-08-17 16:44] LABS: BEDSIDE GLUCOSE 132 MG/DL (80-115)
[2017-08-17 20:09] LABS: BEDSIDE GLUCOSE 59 MG/DL (80-115)
[2017-08-17 21:02] LABS: BEDSIDE GLUCOSE 151 MG/DL (80-115)
[2017-08-18] MEDS: SODIUM CHLORIDE 0.9% INJ 10 ML SYR IV ×3 (05:09→20:34)
[2017-08-18 05:25] LABS: HEMATOCRIT 27.5 % (42.0-52.0); HEMOGLOBIN 8.8 g/dl (13.5-17.5); MEAN CORPUSCULAR HEMOGLOBIN 29.6 pg (27.0-33.0); MEAN CORPUSCULAR VOLUME 92.6 fl (80.0-96.0); RED BLOOD COUNT 2.97 10^6/uL (4.30-6.10); RED CELL DISTRIBUTION WIDTH 15.2 % (11.5-14.5); WHITE BLOOD COUNT 5.6 10^3/uL (4.0-10.0)
[2017-08-18 05:27] LABS: IMMATURE PLATELET FRACTION % 4.6 % (0.0-10.9); PLATELET COUNT, AUTOMATED 89 10^3/uL (150-450)
[2017-08-18 05:50] LABS: ANION GAP 8 MEQ/L (8-16); BLOOD UREA NITROGEN 34 MG/DL (7-18); CALCIUM LEVEL 7.9 MG/DL (8.8-10.2); CARBON DIOXIDE LEVEL 32 MEQ/L (21-32); CHLORIDE LEVEL 101 MEQ/L (98-107); CREATININE FOR GFR 5.86 MG/DL (0.70-1.30); GLOMERULAR FILTRATION RATE 10.3 (>49); GLUCOSE, FASTING 132 MG/DL (70-100); SODIUM LEVEL 141 MEQ/L (136-145)
[2017-08-18] MEDS: CETIRIZINE (ZyrTEC) 10 MG TAB PO (06:31)
[2017-08-18] MEDS: CARVedilol 3.125 MG TAB PO ×2 (06:31→20:33)
[2017-08-18] MEDS: ENTRESTO 24-26MG TABLET (SACUBITRIL/VALSARTAN) PO ×2 (06:32→20:33)
[2017-08-18] MEDS: HumaLOG INSULIN (NovoLOG) PER UNIT SC ×4 (07:49→20:33)
[2017-08-18] MEDS ORDERED: DARBEPOETIN 100 MCG/0.5 ML *DIALYSIS* SYRINGE (J0882) IV (09:15)
[2017-08-18 12:39] LABS: BEDSIDE GLUCOSE 103 MG/DL (80-115)
[2017-08-18 17:24] LABS: BEDSIDE GLUCOSE 125 MG/DL (80-115)
[2017-08-18 20:03] LABS: BEDSIDE GLUCOSE 155 MG/DL (80-115)
[2017-08-18] MEDS: ROSUVASTATIN 10 MG TAB (CRESTOR) PO (20:32)
[2017-08-18] MEDS: CLOPIDOGREL 75 MG TAB PO (20:33)
[2017-08-18] MEDS: PANTOPRAZOLE 40MG TAB (PROTONIX) PO (20:33)
[2017-08-19] MEDS: SODIUM CHLORIDE 0.9% INJ 10 ML SYR IV (05:20)
[2017-08-19 05:38] LABS: HEMATOCRIT 28.1 % (42.0-52.0); HEMOGLOBIN 8.8 g/dl (13.5-17.5); MEAN CORPUSCULAR HGB CONC 31.3 g/dl (32.0-36.5); MEAN CORPUSCULAR VOLUME 92.7 fl (80.0-96.0); RED BLOOD COUNT 3.03 10^6/uL (4.30-6.10); WHITE BLOOD COUNT 5.4 10^3/uL (4.0-10.0)
[2017-08-19 05:42] LABS: PLATELET COUNT, AUTOMATED 92 10^3/uL (150-450)
[2017-08-19 05:56] LABS: ANION GAP 8 MEQ/L (8-16); BLOOD UREA NITROGEN 29 MG/DL (7-18); CALCIUM LEVEL 8.2 MG/DL (8.8-10.2); CARBON DIOXIDE LEVEL 30 MEQ/L (21-32); CHLORIDE LEVEL 103 MEQ/L (98-107); CREATININE FOR GFR 4.26 MG/DL (0.70-1.30); GLOMERULAR FILTRATION RATE 14.9 (>49); GLUCOSE, FASTING 125 MG/DL (70-100); POTASSIUM SERUM 4.1 MEQ/L (3.5-5.1); SODIUM LEVEL 141 MEQ/L (136-145)
[2017-08-19] MEDS: ENTRESTO 24-26MG TABLET (SACUBITRIL/VALSARTAN) PO ×2 (08:40→20:33)
[2017-08-19] MEDS: HumaLOG INSULIN (NovoLOG) PER UNIT SC ×4 (08:40→20:33)
[2017-08-19] MEDS: CARVedilol 3.125 MG TAB PO ×2 (08:41→20:32)
[2017-08-19] MEDS: CETIRIZINE (ZyrTEC) 10 MG TAB PO (08:41)
[2017-08-19 12:34] LABS: BEDSIDE GLUCOSE 145 MG/DL (80-115)
[2017-08-19 17:49] LABS: BEDSIDE GLUCOSE 145 MG/DL (80-115)
[2017-08-19 19:49] LABS: BEDSIDE GLUCOSE 178 MG/DL (80-115)
[2017-08-19] MEDS: PANTOPRAZOLE 40MG TAB (PROTONIX) PO (20:32)
[2017-08-19] MEDS: CLOPIDOGREL 75 MG TAB PO (20:32)
[2017-08-19] MEDS: ROSUVASTATIN 10 MG TAB (CRESTOR) PO (20:32)
[2017-08-20 06:35] LABS: HEMATOCRIT 30.7 % (42.0-52.0); HEMOGLOBIN 9.9 g/dl (13.5-17.5); MEAN CORPUSCULAR HEMOGLOBIN 29.7 pg (27.0-33.0); MEAN CORPUSCULAR HGB CONC 32.2 g/dl (32.0-36.5); MEAN CORPUSCULAR VOLUME 92.2 fl (80.0-96.0); PLATELET COUNT, AUTOMATED 106 10^3/uL (150-450); RED BLOOD COUNT 3.33 10^6/uL (4.30-6.10); RED CELL DISTRIBUTION WIDTH 14.8 % (11.5-14.5); WHITE BLOOD COUNT 5.7 10^3/uL (4.0-10.0)
[2017-08-20 06:51] LABS: ANION GAP 10 MEQ/L (8-16); BLOOD UREA NITROGEN 42 MG/DL (7-18); CALCIUM LEVEL 8.3 MG/DL (8.8-10.2); CARBON DIOXIDE LEVEL 27 MEQ/L (21-32); CHLORIDE LEVEL 104 MEQ/L (98-107); CREATININE FOR GFR 5.94 MG/DL (0.70-1.30); GLOMERULAR FILTRATION RATE 10.1 (>49); GLUCOSE, FASTING 113 MG/DL (70-100); POTASSIUM SERUM 4.7 MEQ/L (3.5-5.1); SODIUM LEVEL 141 MEQ/L (136-145)
[2017-08-20] MEDS: HumaLOG INSULIN (NovoLOG) PER UNIT SC ×4 (07:34→20:16)
[2017-08-20] MEDS: ENTRESTO 24-26MG TABLET (SACUBITRIL/VALSARTAN) PO ×2 (08:45→20:16)
[2017-08-20] MEDS: CETIRIZINE (ZyrTEC) 10 MG TAB PO (08:45)
[2017-08-20] MEDS: CARVedilol 3.125 MG TAB PO ×2 (08:49→20:15)
[2017-08-20] MEDS ORDERED: LIDOCAINE 1% MDV 20ML VIAL As Ordered (09:37)
[2017-08-20] MEDS ORDERED: MIDAZOLAM INJ 2 MG/2 ML VIAL (J2250) As Ordered ×3 (09:38)
[2017-08-20] MEDS ORDERED: FLUMAZENIL 0.5 MG/5 ML VIAL As Ordered (09:38)
[2017-08-20 11:23] LABS: BEDSIDE GLUCOSE 143 MG/DL (80-115)
[2017-08-20 16:45] LABS: BEDSIDE GLUCOSE 126 MG/DL (80-115)
[2017-08-20 20:13] LABS: BEDSIDE GLUCOSE 211 MG/DL (80-115)
[2017-08-20] MEDS: ROSUVASTATIN 10 MG TAB (CRESTOR) PO (20:15)
[2017-08-20] MEDS: CLOPIDOGREL 75 MG TAB PO (20:16)
[2017-08-20] MEDS: PANTOPRAZOLE 40MG TAB (PROTONIX) PO (20:16)
[2017-08-21 06:14] LABS: HEMATOCRIT 31.1 % (42.0-52.0); MEAN CORPUSCULAR HEMOGLOBIN 29.3 pg (27.0-33.0); MEAN CORPUSCULAR HGB CONC 32.2 g/dl (32.0-36.5); MEAN CORPUSCULAR VOLUME 91.2 fl (80.0-96.0); PLATELET COUNT, AUTOMATED 165 10^3/uL (150-450); RED BLOOD COUNT 3.41 10^6/uL (4.30-6.10); WHITE BLOOD COUNT 7.5 10^3/uL (4.0-10.0)
[2017-08-21 06:37] LABS: ANION GAP 10 MEQ/L (8-16); BLOOD UREA NITROGEN 53 MG/DL (7-18); CALCIUM LEVEL 8.4 MG/DL (8.8-10.2); CARBON DIOXIDE LEVEL 25 MEQ/L (21-32); CHLORIDE LEVEL 104 MEQ/L (98-107); CREATININE FOR GFR 7.47 MG/DL (0.70-1.30); GLOMERULAR FILTRATION RATE 7.8 (>49); GLUCOSE, FASTING 121 MG/DL (70-100); SODIUM LEVEL 139 MEQ/L (136-145)
[2017-08-21 06:38] LABS: POTASSIUM SERUM 5.4 MEQ/L (3.5-5.1)
[2017-08-21] MEDS: HumaLOG INSULIN (NovoLOG) PER UNIT SC (08:56)
[2017-08-21] MEDS: CETIRIZINE (ZyrTEC) 10 MG TAB PO (09:11)
[2017-08-21] MEDS: ENTRESTO 24-26MG TABLET (SACUBITRIL/VALSARTAN) PO (09:12)
[2017-08-21] MEDS: CARVedilol 3.125 MG TAB PO (09:12)
== END 2017-08-21 12:00 | disposition home or self-care (01) | DRG 291 ==
LOC: M ED INP 08-17 01:22 → M PCU 08-20 09:25 → M MSPAV 08-17 11:42 → M ED 19:59
PROC: 0W9930Z Drainage of Right Pleural Cavity with Drainage Device, Percutaneous Approach (ICD-10-PCS; 2017-08-17)
PROC: 5A1D70Z Performance of Urinary Filtration, Intermittent, Less than 6 Hours Per Day (ICD-10-PCS; 2017-08-18)
PROC: 0W9930Z Drainage of Right Pleural Cavity with Drainage Device, Percutaneous Approach (ICD-10-PCS; principal; 2017-08-20)
DX: I13.2 Hypertensive heart and chronic kidney disease with heart failure and with stage 5 chronic kidney disease, or end stage renal disease (principal); N18.6 End stage renal disease; I50.23 Acute on chronic systolic (congestive) heart failure; J91.8 Pleural effusion in other conditions classified elsewhere; D69.6 Thrombocytopenia, unspecified; I25.10 Atherosclerotic heart disease of native coronary artery without angina pectoris; K21.9 Gastro-esophageal reflux disease without esophagitis; E87.5 Hyperkalemia; I25.5 Ischemic cardiomyopathy; D63.1 Anemia in chronic kidney disease; E11.22 Type 2 diabetes mellitus with diabetic chronic kidney disease; N40.0 Benign prostatic hyperplasia without lower urinary tract symptoms; Z99.2 Dependence on renal dialysis; Z95.828 Presence of other vascular implants and grafts; Z90.49 Acquired absence of other specified parts of digestive tract; Z79.51 Long term (current) use of inhaled steroids; Z79.02 Long term (current) use of antithrombotics/antiplatelets; Z88.6 Allergy status to analgesic agent; Z79.899 Other long term (current) drug therapy; Z95.1 Presence of aortocoronary bypass graft; Z86.73 Personal history of transient ischemic attack (TIA), and cerebral infarction without residual deficits

== ENCOUNTER → 2017-09-14 | Outpatient (CLI) | payer MEDICARE, OTHER | LOC: M SMT 09:40 | DX: J90 Pleural effusion, not elsewhere classified (principal); Z96.9 Presence of functional implant, unspecified | CPT/HCPCS: 71046 ==

== ENCOUNTER → 2017-11-09 | Outpatient (CLI) | payer MEDICARE, OTHER ==
[~2017-11-09] MED LIST changes: -/HCTZ25TA OR; -/NEPHROTA PO; -/ONDA4TA PO; -BYST10TA PO; -BYST20TA2 PO; -CARA1TAB2 PO; -CARA1TAB6 PO; -CETI10TA PO; -CLOP75TA2 PO; -COLA100C5 PO; -COLCPOW6 PO; -CRES10TA32 PO; -CRES20TA PO; -DIOV320T PO; -DIPH2.5T14 PO; -EPOG1000 SC; -GLIPIZIDE XL PO; -GLUC10TA18 PO; +HEPARIN 1,000 UNITS/ML 10ML VIAL (FOR RADIOLOGY& DIALYSIS ONLY) As Ordered; -INSULANT SC; -IRON325T3 PO; +ISOVUE-300 61% 50ML VIAL (Q9967) As Ordered; -LABE10TAB PO; +LIDOCAINE 2% MDV 20 ML VIAL As Ordered; -LOPE2CA PO; -LOSA100T36 PO; -MAGN64TASA PO; -MICR10CA PO; +MIDAZOLAM INJ 2 MG/2 ML VIAL (J2250) As Ordered; -MINO2.5T PO; -NEPH1CAP4 PO; -PLAV1TAB2 PO; -POTA10CA PO; -POTA10TA2 PO; -POTA20TA6 PO; -PREV1CAP PO; -PREV30CA6 PO; -PROC IM; -REGL10TA6 PO; -RENATAB5 PO; -RENAVITE PO; -RENV2TAB PO; -SERT-141 PO; -SPIR25TA2 PO; -TYLE167L PO; -TYLE325T5 PO; -TYLE500T78 PO; -TYLE650T30 PO; -VANC75VL IV; -VITA-130 PO; -VITA1CAP40 PO; -VITA500047 PO; -VITA500T88 PO; +fentaNYL 100 MCG/2 ML INJECTION (J3010) As Ordered
== END | disposition home or self-care (01) ==
LOC: M IRPRO 07:37
DX: I70.245 Atherosclerosis of native arteries of left leg with ulceration of other part of foot (principal); L97.529 Non-pressure chronic ulcer of other part of left foot with unspecified severity; I12.0 Hypertensive chronic kidney disease with stage 5 chronic kidney disease or end stage renal disease; E11.22 Type 2 diabetes mellitus with diabetic chronic kidney disease; N18.6 End stage renal disease; E78.00 Pure hypercholesterolemia, unspecified
CPT/HCPCS: 37224

== ENCOUNTER → 2017-11-14 | Outpatient (CLI) | payer MEDICARE, OTHER | LOC: M WUC 11:09 | DX: R91.8 Other nonspecific abnormal finding of lung field (principal) | CPT/HCPCS: 71046 ==

== ENCOUNTER → 2017-12-11 | Outpatient (CLI) | payer MEDICARE, OTHER ==
[~2017-12-11] MED LIST changes: -HEPARIN 1,000 UNITS/ML 10ML VIAL (FOR RADIOLOGY& DIALYSIS ONLY) As Ordered; -MIDAZOLAM INJ 2 MG/2 ML VIAL (J2250) As Ordered; -fentaNYL 100 MCG/2 ML INJECTION (J3010) As Ordered
== END | disposition home or self-care (01) ==
LOC: M IRPRO 07:33
DX: T82.590A Other mechanical complication of surgically created arteriovenous fistula, initial encounter (principal); N18.6 End stage renal disease
CPT/HCPCS: 36901

== ENCOUNTER → 2017-12-14 | Outpatient (CLI) | payer MEDICARE, OTHER | LOC: M SMT 08:17 | DX: J90 Pleural effusion, not elsewhere classified (principal); Z97.8 Presence of other specified devices | CPT/HCPCS: 71046 ==

== ENCOUNTER 2017-12-27 07:02 | Day surgery (SDC) | payer MEDICARE, OTHER ==
[2017-12-27] MEDS: D5W/0.9% SODIUM CHLORIDE 1,000 ML IV (07:41)
[2017-12-27] MEDS ORDERED: LIDOCAINE 1% MDV 20ML VIAL As Ordered (08:13)
[2017-12-27] MEDS ORDERED: MIDAZOLAM INJ 2 MG/2 ML VIAL (J2250) As Ordered ×2 (08:14)
[2017-12-27] MEDS: MIDAZOLAM INJ 2 MG/2 ML VIAL (J2250) IV ×2 (08:38→08:41)
[2017-12-27] MEDS: LIDOCAINE 1% MDV 20ML VIAL SQ (08:40)
== END 2017-12-27 10:02 | disposition home or self-care (01) ==
LOC: M SDC 07:02
DX: Z46.82 Encounter for fitting and adjustment of non-vascular catheter (principal); J90 Pleural effusion, not elsewhere classified; N18.6 End stage renal disease; I10 Essential (primary) hypertension; E11.9 Type 2 diabetes mellitus without complications; M10.9 Gout, unspecified; F41.9 Anxiety disorder, unspecified; Z79.899 Other long term (current) drug therapy; I69.320 Aphasia following cerebral infarction; I70.213 Atherosclerosis of native arteries of extremities with intermittent claudication, bilateral legs
CPT/HCPCS: 32552

== ENCOUNTER → 2018-01-04 | Outpatient (CLI) | payer MEDICARE, OTHER | LOC: M SMT 08:55 | DX: J90 Pleural effusion, not elsewhere classified (principal); Z48.03 Encounter for change or removal of drains | CPT/HCPCS: 71046 ==

== ENCOUNTER → 2018-03-19 | Outpatient (CLI) | payer MEDICARE, OTHER ==
[~2018-03-19] MED LIST changes: +/HCTZ25TA OR; +/NEPHROTA PO; +/ONDA4TA PO; +ADVA230A INH; +ALBU17IN2 INH; +ALBU83IN INH; +BYST10TA PO; +BYST10TA2 PO; +BYST20TA2 PO; +BYST5TAB2 PO; +CALC1CAP31 PO; +CALC500C16 PO; +CARA1TAB2 PO; +CARA1TAB6 PO; +CARV3.12 PO; +CETI10TA PO; +CLOP75TA2 PO; +COLA100C5 PO; +COLCPOW6 PO; +COZA1TAB PO; +CRES10TA32 PO; +CRES20TA PO; +DARB100SYR IV; +DELS30LI4 PO; +DEXT50IN6 IV; +DIOV320T PO; +DIPH2.5T14 PO; +ENTR1TAB PO; +EPOG1000 SC; +GLIPIZIDE XL PO; +GLUC10TA18 PO; +GLUC1INJ21 SC; +GLUC4CHW19 PO; +HEPA50VL SC; +HYDR-3713 PO; +INSUHUMDS SC; +INSULANT SC; +IPRA0.00 NEB; +IRON325T3 PO; -ISOVUE-300 61% 50ML VIAL (Q9967) As Ordered; +KLOR10TA76 PO; +LABE10TAB PO; -LIDOCAINE 2% MDV 20 ML VIAL As Ordered; +LOPE2CA PO; +LOSA100T50 PO; +MAGN64TASA PO; +MAPA500T2 PO; +MICR10CA PO; +MINO2.5T PO; +NEPH1CAP4 PO; +NORC1TAB4 PO; +ONDA4TAB6 PO; +PANT40TA3 PO; +PLAV1TAB2 PO; +POTA10TA2 PO; +POTA20TA6 PO; +PRED10TA2 PO; +PREV1CAP PO; +PREV30CA6 PO; +PROAAER10 INH; +PROC IM; +PROT1TAB2 PO; +REGL10TA6 PO; +REGL5TAB2 PO; +RENATAB5 PO; +RENAVITE PO; +RENV2TAB PO; +ROBI30SU PO; +ROSU10TA5 PO; +SENN1TAB2 PO; +SERT-141 PO; +SLF3ML IV; +SPIR-10 PO; +SPIR25TA2 PO; +TUMS1000 PO; +TUMS500C PO; +TYLE167L PO; +TYLE325T5 PO; +TYLE500T78 PO; +TYLE650T30 PO; +VANC75VL IV; +VITA-130 PO; +VITA500047 PO; +VITA50005 PO; +VITA500T88 PO; +ZOFR4TAB14 PO; +ZYRT10CA5 PO; +[UNRECOGNIZED DRUG - CODE] INJ; +[UNRECOGNIZED DRUG - OTHER] INJ; +[UNRECOGNIZED DRUG - REMARK] XX
== END ==
LOC: M WUC 08:58
PROVIDERS: ATTEND Podiatrist Foot & Ankle Surgery
DX: M10.9 Gout, unspecified (principal)

== ENCOUNTER 2018-04-18 10:24 | Inpatient (IN) | payer MEDICARE, OTHER ==
[~2018-04-18] VITALS: Ht 172.7 cm; Wt 79.4 kg
[2018-04-18 12:52] LABS: BASO # 0.1 10^3/uL (0.0-0.2); BASO % 0.8 % (0.0-1.0); EOS # 0.2 10^3/uL (0.0-0.50); EOS % 2.1 % (0.0-3.0); HEMATOCRIT 38.8 % (42.0-52.0); HEMOGLOBIN 12.7 g/dl (13.5-17.5); LYMPH # 1.3 10^3/uL (1.5-4.5); LYMPH % 14.7 % (24.0-44.0); MEAN CORPUSCULAR HEMOGLOBIN 31.1 pg (27.0-33.0); MEAN CORPUSCULAR HGB CONC 32.7 g/dl (32.0-36.5); MEAN CORPUSCULAR VOLUME 95.1 fl (80.0-96.0); MONO # 0.8 10^3/uL (0.0-0.8); MONO % 9.1 % (0.0-5.0); NEUTROPHILS # 6.6 10^3/uL (1.8-7.7); NEUTROPHILS % 73.1 % (36.0-66.0); PLATELET COUNT, AUTOMATED 183 10^3/uL (150-450); RED BLOOD COUNT 4.08 10^6/uL (4.30-6.10)
[2018-04-18] MEDS ORDERED: fentaNYL 100 MCG/2 ML INJECTION (J3010) IV PRN (13:00)
[2018-04-18] MEDS ORDERED: ONDANSETRON 4MG/2ML VIAL (J2405) IV ONE (13:00)
[2018-04-18] MEDS ORDERED: HEPARIN DRIP 25,000 UNITS in APPROPRIATE DILUENT 1 EA IV SCH (13:01)
[2018-04-18 13:04] LABS: INR 1.05; PROTHROMBIN TIME 13.8 SECONDS (12.1-14.4)
[2018-04-18 13:05] LABS: PARTIAL THROMBOPLASTIN TIME 33.1 SECONDS (25.4-37.6)
[2018-04-18] MEDS ORDERED: HEPARIN SOD (PORCINE) 5000 UNITS/ML VIAL IV PRN ×2 (13:15→21:00)
[2018-04-18] MEDS ORDERED: HEPARIN SOD (PORCINE) 5000 UNITS/ML VIAL IV ONE (13:15)
[2018-04-18 13:28] LABS: CALCIUM LEVEL 8.7 MG/DL (8.8-10.2); CREATININE FOR GFR 9.3 MG/DL (0.70-1.30); POTASSIUM SERUM 4.7 MEQ/L (3.5-5.1)
--- NOTE | 2018-04-18 13:53 | REP ---
Portable chest, single AP sitting view, 01:16 p.m.: Comparison is 01/04/2018. There are sternotomy wires, unchanged. Lung pena are clear. Cardiac size is normal. The trever, mediastinum, and skeletal structures are unremarkable and unchanged. Impression: Essentially negative portable chest. Electronically Signed by Ramesh Hill MD 04/18/2018 01:45 P
[2018-04-18] MEDS ORDERED: RENV2TAB PO (13:56)
[2018-04-18] MEDS ORDERED: TYLE500T78 PO (13:56)
[2018-04-18] MEDS ORDERED: ONDA4TAB6 PO (13:56)
[2018-04-18] MEDS ORDERED: COLC1TAB14 PO (13:56)
[2018-04-18] MEDS ORDERED: CETIRIZINE (ZyrTEC) 10 MG TAB PO PRN (15:30)
[2018-04-18] MEDS ORDERED: GLUCOSE 4 GM CHEW TABLET PO PRN (15:30)
[2018-04-18] MEDS ORDERED: COLCHICINE 0.6 MG TAB PO PRN (15:30)
[2018-04-18] MEDS ORDERED: ONDANSETRON 4 MG ORAL DISINTEGRATING TAB (Q0162 PER 1MG) PO PRN (15:30)
[2018-04-18] MEDS ORDERED: MORPHINE 4 MG/ML 1ML VIAL/SYRINGE (J2270) IV PRN (15:30)
[2018-04-18] MEDS ORDERED: DEXTROSE 50% 50 ML SYRINGE IV PRN (15:30)
[2018-04-18] MEDS ORDERED: GLUCAGON FOR INJ 1 MG VIAL (J1610) SC PRN (15:30)
--- NOTE | 2018-04-18 15:54 | HPE ---
DATE OF ADMISSION: 04/18/2018 68-year-old male with a past medical history of hypertension, diabetes, hyperlipidemia, coronary artery disease, status post coronary artery bypass graft (CABG), end stage renal disease on hemodialysis Monday, Monday, Monday, history of nonhealing left foot diabetic ulcers secondary to ischemic foot, status post left popliteal artery angioplasty in November 2017, who presents to the emergency room with worsening left foot pain that has been going on for approximately a week and it has gotten so bad that even putting his foot down causes extreme pain. The family also noticed that the patient's ulcers have been getting wider instead of healing, so they brought the patient to the emergency room for evaluation. The emergency room attending called Dr. Blank, who is our vascular surgeon who did the procedure. He came to see the patient and his recommendations were to likely repeat an angioplasty and see if there is anything viable to correct, which will likely be done today. The patient is nothing by mouth at this time. He denies any chest pain, shortness of breath, abdominal pain, nausea, vomiting, vertigo, headache. He will be admitted for further management. PAST MEDICAL HISTORY: Again, past medical history of: 1. Hypertension. 2. Diabetes. 3. Hyperlipidemia. 4. Coronary artery disease, status post coronary artery bypass graft (CABG). 5. History of peripheral artery disease, status post left popliteal artery angioplasty and left superficial femoral artery angioplasty back in November [address] Blank. 6. History of chronic systolic heart failure, ejection fraction of 30%. 7. End stage renal disease on hemodialysis Monday, Monday and Monday, last dialysis was on Monday. 8. History of CVA. 9. Benign prostatic hypertrophy (BPH). ALLERGIES: He has drug allergies to ASPIRIN. FAMILY HISTORY: Noncontributory. SOCIAL HISTORY: The patient denies tobacco, alcohol, or illicit drugs. MEDICATIONS: He takes at home: - Tylenol as needed - calcitriol 0.25 mcg orally three times a week - calcium carbonate 2000 mg orally on Monday and Monday - Coreg 3.125 mg by mouth twice a day - cetirizine 10 mg by mouth daily as needed - Plavix 75 mg by mouth daily - colchicine 0.6 mg by mouth daily as needed - ergocalciferol 50,000 units by mouth weekly - insulin Lispro sliding scale - Zofran 4 mg by mouth every 6 hours as needed - pantoprazole 40 mg by mouth daily - Renovite one tablet by mouth daily - rosuvastatin 20 mg by mouth daily - Sevelamer 1600 mg orally Monday and Monday REVIEW OF SYSTEMS: Negative for all ten major systems except what is mentioned in the history of present illness. PHYSICAL EXAMINATION: VITAL SIGNS: Blood pressure 159/72, heart rate is 90 and regular, respiratory rate 18, temperature 98, oxygen saturation 95% on room air. Head is atraumatic, normocephalic. Neck is supple with no jugular venous distention (JVD). Lungs clear to auscultation. S1, S2 audible. No murmurs appreciated. Abdomen is soft. Positive bowel sounds. No pedal edema. Skin examination shows multiple ulcers in the left foot, particularly one on the tip of the left great toe. There is also one in the lateral malleolar region and one in the heel of the foot. None of them have any sinus drainage. Neurologic examination, the patient is awake, alert and oriented times three. The patient has no dorsalis pedis pulses present in the left lower extremity. LABORATORIES: WBC 9, hemoglobin 12.7, hematocrit 38.8, platelets are 183,000. Sodium 138, potassium 4.7, chloride 98, CO2 of 25, BUN 59, creatinine 9.3, calcium is 8.7. Chest x-ray was negative. 12-lead electrocardiogram (EKG) showed no acute ST abnormalities. IMPRESSION: 1. Left lower extremity peripheral vascular disease. 2. Hypertension. 3. Diabetes. PLAN: The patient is to be admitted to the medical/surgical floor. The patient will be kept nothing by mouth and started on normal saline at 100 mL an hour. I will continue his preadmission medications. We will have Dr. Blank on board for the procedure and we will follow his recommendations postoperatively. We will also have Dr. Larose on consult for nephrology so the patient receives his dialysis after the angioplasty. ADDENDUM: We will start patient on IV heparin drip, as per Dr. Blank. We will also continue that and at this time no antibiotics are necessary. The wounds do not look infected. We will continue following his care postoperatively.
[2018-04-18] MEDS: CALCIUM CARBONATE 500 MG CHEW U/D PO SCH (18:00)
[2018-04-18 19:45] VITALS: BP 135/66
[2018-04-18] MEDS: HumaLOG INSULIN (NovoLOG) PER UNIT SC SCH (21:00)
[2018-04-18] MEDS: CARVedilol 3.125 MG TAB PO SCH (21:00)
--- NOTE | 2018-04-18 21:03 | ECGEPIP ---
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 : 1950 Requested By: Guerrero Guerrero Order Number: [id number] Reading MD: Suzanne Treviño Measurements Intervals [place] Rate: 82 P: 51 IN: 182 QRS: 23 QRSD: 85 T: 92 QT: 392 QTc: 460 Interpretive Statements SINUS RHYTHM NSTTW ABNORMALITY SEPTAL MYOCARDIAL INFARCTION, PROBABLY OLD PROLONGED QTC Electronically Signed On 04-18-2018 21:03:16 EDT by Suzanne Treviño
[2018-04-18] MEDS: NS 1,000 ML IV SCH (21:20)
--- NOTE | 2018-04-18 21:50 | CR ---
DATE OF CONSULTATION: 04/18/2018 REASON FOR CONSULTATION: To assist in the management of end-stage renal disease. HISTORY OF PRESENT ILLNESS:. Mr. Dykes is a 68-year-old gentleman with known history of hypertension, type 2 diabetes, end-stage renal disease requiring maintenance hemodialysis, coronary artery disease with prior coronary artery bypass graft (CABG), history of multiple strokes and peripheral vascular disease. He has had a prior angioplasty in left lower extremity and has recently developed worsening of pain in his left foot and another ischemic ulcer. He was brought to the emergency room today due to excruciating pain and was seen by vascular surgery. It was felt that the patient may have occlusion of his prior angioplasty and stent. He is admitted and is being treated with IV heparin. The patient is due for dialysis today and nephrology consultation was requested as patient is likely to go to OR for angiogram later this evening. PAST MEDICAL AND SURGICAL HISTORY Significant for 1. Longstanding hypertension. 2. Type 2 diabetes. 3. Hyperlipidemia. 4. Coronary artery disease, status post a CABG. 5. History of peripheral artery disease, status post left lower extremity angioplasty. 6. History of prior stroke. 7. History of systolic congestive heart failure with ejection fraction of 30%. 8. End-stage renal disease requiring maintenance hemodialysis. 9. History of benign prostatic hypertrophy (BPH). ALLERGIES: The patient has reported allergy to ASPIRIN. MEDICATIONS His home medications include calcium carbonate 1000 mg three times a day with meals, Coreg 3.125 mg twice a day, Plavix 75 mg daily, vitamin D 50,000 units weekly, insulin per sliding scale, pantoprazole 40 mg daily, Radha-Haja 1 tablet daily, Crestor 20 mg daily. FAMILY HISTORY: Negative for end-stage renal disease. PERSONAL AND SOCIAL HISTORY The patient is and lives with his . He does not smoke or drink alcohol. There is no history of drug use. REVIEW OF SYSTEMS The patient denies any fever or chills. He is mildly hard of hearing. Nose and throat are unremarkable. Cardiovascular system significant for systolic congestive heart failure but denies any dyspnea, chest pain or leg edema. Respiratory system negative for cough or hemoptysis. GI system negative for nausea, vomiting or diarrhea. system negative for dysuria or hematuria. Endocrine system is significant for secondary hyperparathyroidism and type 2 diabetes. Psychosocial system is negative for depression or anxiety. Neurological system is significant for multiple strokes in the past. Hematological system is significant for anemia of chronic kidney disease. He is not on any chronic anticoagulation other than Plavix. Skin is negative for any rash. He has a small ulcer on his left foot. PHYSICAL EXAMINATION The patient is awake and alert at his baseline mentation at the time of my visit. He is currently in dialysis room. Temperature 98.4 degrees Fahrenheit, heart rate 82 per minute and respiratory rate 18 per minute. Blood pressure 162/76 mmHg and oxygen saturation 98% on room air. Head: Is atraumatic. Neck is supple and without JVD or thyroid enlargement. Ears, nose and throat are unremarkable. Heart exam reveals regular S1 and S2. Lungs: Clear to auscultation. Abdomen: Soft and nontender and bowel sounds are normal. Extremities have no cyanosis or clubbing. Left foot is quite tender and colder than the right foot. There is a small ulcer on the big toe and heel. Neurologically he is awake, alert and at his baseline mentation. LABORATORY DATA WBC count 9.0, hemoglobin 12.7 and hematocrit 38.8. Sodium 138, potassium 4.7, CO2 26, BUN 59 and creatinine 9.30. Glucose 116 and calcium 8.7. PROBLEMS: 1. End-stage renal disease. The patient is regularly dialyzed on Monday, Monday and Monday schedule. He is already in dialysis room and we are dialyzing him this afternoon prior to OR. His volume status will be optimized with dialysis. 2. Hypertension. Blood pressure is reasonably well-controlled. At present, we will continue with current antihypertensive meds and no other changes are needed. 3. Anemia. Not an active issue. His anemia is very well compensated. No urgent intervention is indicated. 4. Left foot pain and history of peripheral vascular disease. He has had prior angioplasty done on his left leg. He probably has occluded his arterial supply. He is currently on IV heparin drip and Dr. Blank has a plan to do another angioplasty later today. From renal standpoint, the patient is medically stable and cleared for angioplasty. No concerns about the dye as the patient already has end-stage renal disease and not any risk for nephrotoxicity. Thank you for involving me in the care of Mr. Dykes. We will follow him along with you.
[2018-04-19] MEDS: ACETAMINOPHEN 500 MG TAB PO PRN ×4 (00:03→20:22)
[2018-04-19 04:59] LABS: BASO % 0.7 % (0.0-1.0); EOS # 0.2 10^3/uL (0.0-0.50); EOS % 2.7 % (0.0-3.0); HEMATOCRIT 36.5 % (42.0-52.0); HEMOGLOBIN 11.9 g/dl (13.5-17.5); LYMPH # 1.7 10^3/uL (1.5-4.5); LYMPH % 28.3 % (24.0-44.0); MEAN CORPUSCULAR HEMOGLOBIN 31.6 pg (27.0-33.0); MEAN CORPUSCULAR HGB CONC 32.6 g/dl (32.0-36.5); MEAN CORPUSCULAR VOLUME 97.1 fl (80.0-96.0); MONO # 0.7 10^3/uL (0.0-0.8); MONO % 11.3 % (0.0-5.0); NEUTROPHILS # 3.4 10^3/uL (1.8-7.7); NEUTROPHILS % 56.8 % (36.0-66.0); PLATELET COUNT, AUTOMATED 172 10^3/uL (150-450); RED BLOOD COUNT 3.76 10^6/uL (4.30-6.10); WHITE BLOOD COUNT 5.9 10^3/uL (4.0-10.0)
[2018-04-19 05:20] LABS: CALCIUM LEVEL 8.4 MG/DL (8.8-10.2); CREATININE FOR GFR 5.75 MG/DL (0.70-1.30); GLOMERULAR FILTRATION RATE 10.5 (>49); POTASSIUM SERUM 3.9 MEQ/L (3.5-5.1)
[2018-04-19 06:00] VITALS: BP 164/72
[2018-04-19] MEDS: NS 1,000 ML IV SCH ×2 (06:42→09:56)
[2018-04-19] MEDS ORDERED: MIDAZOLAM INJ 2 MG/2 ML VIAL (J2250) As Ordered ONE (06:50)
[2018-04-19] MEDS ORDERED: HEPARIN 1,000 UNITS/ML 10ML VIAL (FOR RADIOLOGY& DIALYSIS ONLY) As Ordered ONE (06:50)
[2018-04-19] MEDS ORDERED: LIDOCAINE 2% MDV 20 ML VIAL As Ordered ONE (06:50)
[2018-04-19] MEDS ORDERED: ISOVUE-300 61% 50ML VIAL (Q9967) As Ordered ONE ×2 (06:51→07:02)
[2018-04-19] MEDS ORDERED: fentaNYL 100 MCG/2 ML INJECTION (J3010) As Ordered ONE (06:51)
[2018-04-19] MEDS ORDERED: PROTAMINE SULF INJ 50 MG/5 ML VIAL (J2720) As Ordered ONE (08:27)
[2018-04-19] MEDS ORDERED: diphenhydrAMINE INJ 50MG/ML VIAL (J1200) As Ordered ONE (08:27)
[2018-04-19] MEDS: PANTOPRAZOLE 40MG TAB (PROTONIX) PO SCH (09:00)
[2018-04-19] MEDS: CALCIUM CARBONATE 500 MG CHEW U/D PO SCH ×3 (09:55→17:49)
[2018-04-19] MEDS: ROSUVASTATIN 10 MG TAB (CRESTOR) PO SCH (09:56)
[2018-04-19 10:15] VITALS: BP 166/58
[2018-04-19] MEDS: CARVedilol 3.125 MG TAB PO SCH ×2 (10:41→20:23)
[2018-04-19 12:15] VITALS: BP 152/70
--- NOTE | 2018-04-19 12:20 | IPN ---
DATE: 04/19/2018 Mr. Dykes is seen this morning on his bedside. He just had a left lower extremity angioplasty done this morning and feels much better. The pain in his left foot has improved. The patient was dialyzed last evening. He denies any dyspnea, chest pain, nausea or vomiting. On physical examination, temperature 97.2 degrees Fahrenheit, heart rate 90 per minute and respiratory rate 18 per minute. Blood pressure 164/58 mmHg and oxygen saturation 96%. Head is atraumatic. Neck is supple and without jugular venous distention (JVD) or thyroid enlargement. Heart sounds are irregular in rhythm and lungs clear to auscultation. Abdomen soft and nontender. Bowel sounds are normal. Extremities have no cyanosis or clubbing. Left foot is not swollen anymore or red. There is a small ulcer on the tip of the big toe and two small ulcers on the heel. There is no evidence of cellulitis. Neurologically he is at his baseline mentation. Today's labs show WBC count 5.9, hemoglobin 11.9 and hematocrit 36.8. Sodium 140, potassium 3.9, CO2 27, BUN 29 and creatinine 5.75. PROBLEMS: 1. End-stage renal disease. The patient was dialyzed yesterday and next dialysis will be scheduled for tomorrow. His electrolytes are stable and volume status is well-compensated. 2. Left foot pain with ischemia. The patient did have angioplasty done this morning and is feeling much better. He is still on IV heparin drip. Defer the plan to Dr. Blank. 3. Anemia. His anemia has been stable and does not need any urgent intervention. 4. Hypertension. Blood pressure is also reasonably well-controlled at present and would not change any medications. 5. Nutrition. The patient has been put on a regular diet. His IV fluid is being stopped now due to risk of hypervolemia.
[2018-04-19] MEDS: HumaLOG INSULIN (NovoLOG) PER UNIT SC SCH ×3 (13:23→21:00)
--- NOTE | 2018-04-19 13:39 | IPNPDOC ---
Subjective Date Seen The patient was seen on 04/19/18. Subjective Chief Complaint/HPI Severe left lower extremity pain Events since last encounter continues to have both the lower extremity pain . left greater than right , no fever or chills, no chest pain or sob , no abdominal pain , nausea or vomiting or diarrhea. Objective Physical Examination General Exam: Positive: Alert, Cooperative, No Acute Distress Eye Exam: Positive: PERRLA, Conjunctiva & lids normal, EOMI; Negative: Sclera icteric ENT Exam: Positive: Atraumatic, Mucous membr. moist/pink, Pharynx Normal Neck Exam: Positive: Supple; Negative: JVD, thyromegaly Chest Exam: Positive: Clear to auscultation, Normal air movement, Other (continuous murmur heard in the left infraclavicular area. ) Heart Exam: Positive: Rate Normal, Regular Rhythm, Normal S1, Normal S2, Murmurs; Negative: Rubs Abdomen Exam: Positive: Normal bowel sounds, Soft; Negative: Tenderness, Hepatospenomegaly Extremity Exam: Positive: Tenderness Skin Exam: Positive: Other skin issue (dry ulcers at the left big toes, lateral aspect of left little toe, a spot in the left heel , lateral aspect of left heel) Assessment /Plan Assessment This is a 68-year-old gentleman with known history of hypertension, type 2 diabetes, end-stage renal disease requiring maintenance hemodialysis, coronary artery disease with prior coronary artery bypass graft (CABG) in 2018, history of multiple strokes affecting both the left and right sides with residual paresis, foot drops left > right, peripheral vascular disease, hyperlipidemia, Systolic CHF with EF of 30%, BPH, ischemic ulcers of the left lower extremity. He has had a prior angioplasty in left lower extremity status post left popliteal artery angioplasty and left superficial femoral artery angioplasty back in [place] [address] Blank. He has recently developed worsening of pain in his left foot and 2 new ischemic ulcers. He was brought to the emergency room due to excruciating pain and was seen by vascular surgery. It was felt that the patient may have occlusion of his prior angioplasty and stent. He was admitted and treated with IV heparin. Pateint was admitted for acute left leg ischemia planned for Angiography. Left lower extremity acute ischemia with ischemic ulcers s/p angioplasty and stent placement on heparin gtt. pain control with morphine managemt as per Dr blank Diabetes continue levemir and lispro. ESRD on HD continue maintenance HD CAD s/p CABG continue Plavix, statin , betablocker Systolic chf volume status to be managed by HD. Hyperlipidemia continue statin Hypertension continue coreg gout continue colchicine. Secondary hyperparathyroidism and hyperphosphatemia continue tums, renvela, calcitriol DVT prophylaxis on heparin infusion. Plan/VTE VTE Prophylaxis Ordered?: Yes VS, I&O, 24H, Fishbone Vital Signs/I&O Vital Signs Date Time Temp Pulse Resp B/P (MAP) Pulse Ox O2 Delivery O2 Flow Rate FiO2 04/19/18 12:15 98.1 89 18 152/70 (97) 97 04/18/18 15:39 Room Air I&O- Last 24 Hours up to 6 AM 04/19/18 06:00 Intake Total 916 ml Output Total 2000 ml Balance -1084 ml Laboratory Data 24H LABS Laboratory Tests 2 04/18/18 20:10: Activated Partial Thromboplast Time 142.1*H 04/18/18 21:32: Bedside Glucose (Misc Panel) 98 04/19/18 04:45: Activated Partial Thromboplast Time 59.8H, Immature Granulocyte % (Auto) 0.2, White Blood Count 5.9, Red Blood Count 3.76L, Hemoglobin 11.9L, Hematocrit 36.5L, Mean Corpuscular Volume 97.1H, Mean Corpuscular Hemoglobin 31.6, Mean Corpuscular Hemoglobin Concent 32.6, Red Cell Distribution Width 13.3, Platelet Count 172, Neutrophils (%) (Auto) 56.8, Lymphocytes (%) (Auto) 28.3, Monocytes (%) (Auto) 11.3H, Eosinophils (%) (Auto) 2.7, Basophils (%) (Auto) 0.7, Neutrophils # (Auto) 3.4, Lymphocytes # (Auto) 1.7, Monocytes # (Auto) 0.7, Eosinophils # (Auto) 0.2, Basophils # (Auto) 0.0, Nucleated Red Blood Cells % (auto) 0.0, Anion Gap 11, Glomerular Filtration Rate 10.5L, Blood Urea Nitrogen 29#H, Creatinine 5.75H, Sodium Level 140, Potassium Level 3.9, Chloride Level 102, Carbon Dioxide Level 27, Calcium Level 8.4L 04/19/18 06:34: Bedside Glucose (Misc Panel) 67L 04/19/18 09:48: Bedside Glucose (Misc Panel) 109 04/19/18 11:38: Activated Partial Thromboplast Time 68.4H 04/19/18 11:42: Bedside Glucose (Misc Panel) 145H CBC/BMP Laboratory Tests 04/19/18 04:45 Red Blood Count 3.76 L, Mean Corpuscular Volume 97.1 H, Mean Corpuscular Hemoglobin 31.6, Mean Corpuscular Hemoglobin Concent 32.6, Red Cell Distribution Width 13.3, Neutrophils (%) (Auto) 56.8, Lymphocytes (%) (Auto) 28.3, Monocytes (%) (Auto) 11.3 H, Eosinophils (%) (Auto) 2.7, Basophils (%) (Auto) 0.7, Neutrophils # (Auto) 3.4, Lymphocytes # (Auto) 1.7, Monocytes # (Auto) 0.7, Eosinophils # (Auto) 0.2, Basophils # (Auto) 0.0, Calcium Level 8.4 L YENNY PLASCENCIA MD Apr 19, 2018 13:39
[2018-04-19 14:00] VITALS: BP 166/64
[2018-04-19] MEDS: CLOPIDOGREL 75 MG TAB PO SCH (15:21)
[2018-04-19] MEDS: NEPHRO-VIT TAB (NEPHROCAPS) PO SCH (15:21)
[2018-04-19] MEDS: HEPARIN DRIP 25,000 UNITS in APPROPRIATE DILUENT 1 EA IV SCH (17:18)
[2018-04-19] MEDS: (RENVELA) SEVELAMER **CARBONate** 800 MG TAB PO SCH (17:48)
[2018-04-19 22:00] VITALS: BP 158/92
[2018-04-20 06:00] VITALS: BP 152/87
[2018-04-20 06:10] LABS: BASO # 0.1 10^3/uL (0.0-0.2); BASO % 0.8 % (0.0-1.0); EOS # 0.2 10^3/uL (0.0-0.50); EOS % 2.5 % (0.0-3.0); HEMOGLOBIN 10.7 g/dl (13.5-17.5); LYMPH # 0.8 10^3/uL (1.5-4.5); LYMPH % 13.7 % (24.0-44.0); MEAN CORPUSCULAR HEMOGLOBIN 30.9 pg (27.0-33.0); MEAN CORPUSCULAR HGB CONC 32.4 g/dl (32.0-36.5); MEAN CORPUSCULAR VOLUME 95.4 fl (80.0-96.0); MONO # 0.6 10^3/uL (0.0-0.8); MONO % 10.5 % (0.0-5.0); NEUTROPHILS # 4.4 10^3/uL (1.8-7.7); NEUTROPHILS % 72.3 % (36.0-66.0); PLATELET COUNT, AUTOMATED 148 10^3/uL (150-450); RED BLOOD COUNT 3.46 10^6/uL (4.30-6.10); WHITE BLOOD COUNT 6.1 10^3/uL (4.0-10.0)
[2018-04-20] MEDS: CLOPIDOGREL 75 MG TAB PO SCH (06:24)
[2018-04-20] MEDS: ROSUVASTATIN 10 MG TAB (CRESTOR) PO SCH (06:25)
[2018-04-20] MEDS: PANTOPRAZOLE 40MG TAB (PROTONIX) PO SCH (06:25)
[2018-04-20] MEDS: NEPHRO-VIT TAB (NEPHROCAPS) PO SCH (06:26)
[2018-04-20] MEDS: CARVedilol 3.125 MG TAB PO SCH ×2 (06:28→21:00)
[2018-04-20 06:35] LABS: CALCIUM LEVEL 8.6 MG/DL (8.8-10.2); CREATININE FOR GFR 8.53 MG/DL (0.70-1.30); GLOMERULAR FILTRATION RATE 6.6 (>49); POTASSIUM SERUM 4.2 MEQ/L (3.5-5.1)
[2018-04-20] MEDS: (RENVELA) SEVELAMER **CARBONate** 800 MG TAB PO SCH ×3 (08:28→17:26)
[2018-04-20] MEDS: HumaLOG INSULIN (NovoLOG) PER UNIT SC SCH ×4 (08:28→21:00)
[2018-04-20] MEDS: CALCIUM CARBONATE 500 MG CHEW U/D PO SCH ×3 (08:29→17:27)
[2018-04-20] MEDS ORDERED: HEPARIN 1,000 UNITS/ML 10ML VIAL (FOR RADIOLOGY& DIALYSIS ONLY) IV ONE (10:15)
--- NOTE | 2018-04-20 11:52 | IPN ---
DATE OF VISIT: 04/20/2018 Mr. Dykes is seen this morning on his bedside. He reports that pain in his left foot has improved. However, he still not able to walk properly. He remains on IV heparin drip following angioplasty on his left lower extremity. Patient was dialyzed day before yesterday and he is due for dialysis again today. On physical exam, temperature 99.2 degrees Fahrenheit, heart rate 76 per minute and respiratory rate 15 per minute. Blood pressure 162/70 mmHg and oxygen saturation 98% on room air. His head is atraumatic. Neck is supple and without jugular venous distention (JVD) or thyroid enlargement. Heart sounds are regular and lungs clear to auscultation. Abdomen soft and nontender and bowel sounds are normal. Extremities have no cyanosis or clubbing. Neurologically, he is at his baseline mentation. Today's labs show WBC count 6.1, hemoglobin 10.7 and hematocrit 33.0. Sodium 136, potassium 4.2, CO2 26, BUN 56 and creatinine 8.53. Glucose 178 and calcium 8.6. PROBLEMS: 1. End-stage renal disease. Patient is due for dialysis today and will be dialyzed this afternoon. His electrolytes and volume status are well compensated. We will try to remove 1-2 liters of fluid as tolerated. 2. Anemia. So far his anemia is stable without any active bleeding. We will continue to monitor. No urgent intervention is indicated. 3. Ischemic left foot, status post angioplasty with stents. Patient remains on IV heparin drip. I will defer to Dr. Blank to decide if he needs long-term anticoagulation with Coumadin or Eliquis.
[2018-04-20] MEDS: ACETAMINOPHEN 500 MG TAB PO PRN ×2 (13:32→18:31)
[2018-04-20] MEDS: HEPARIN DRIP 25,000 UNITS in APPROPRIATE DILUENT 1 EA IV SCH (16:10)
--- NOTE | 2018-04-20 21:43 | IPNPDOC ---
Subjective Date Seen The patient was seen on 04/20/18. Subjective Chief Complaint/HPI severe pain in the left leg and increased nuber of ulcers. Events since last encounter No complaints this morning, no overnight events. As per he is hopping around when out of bed and unable to bear weight on the left leg. Objective Physical Examination General Exam: Positive: Alert, Cooperative, No Acute Distress Eye Exam: Positive: PERRLA, Conjunctiva & lids normal, EOMI; Negative: Sclera icteric ENT Exam: Positive: Atraumatic, Mucous membr. moist/pink, Pharynx Normal Neck Exam: Positive: Supple; Negative: JVD, thyromegaly Chest Exam: Positive: Clear to auscultation, Normal air movement, Other (continuous murmur heard in the left infraclavicular area. ) Heart Exam: Positive: Rate Normal, Regular Rhythm, Normal S1, Normal S2, Murmurs; Negative: Rubs Abdomen Exam: Positive: Normal bowel sounds, Soft; Negative: Tenderness, Hepatospenomegaly Extremity Exam: Positive: Tenderness Skin Exam: Positive: Other skin issue (dry ulcers at the left big toes, lateral aspect of left little toe, a spot in the left heel , lateral aspect of left heel) Assessment /Plan Assessment This is a 68-year-old gentleman with known history of hypertension, type 2 diabetes, end-stage renal disease requiring maintenance hemodialysis, coronary artery disease with prior coronary artery bypass graft (CABG) in 2018, history of multiple strokes affecting both the left and right sides with residual paresis, foot drops left > right, peripheral vascular disease, hy perlipidemia, Systolic CHF with EF of 30%, BPH, ischemic ulcers of the left lower extremity. He has had a prior angioplasty in left lower extremity status post left popliteal artery angioplasty and left superficial femoral artery angioplasty back in [place] [address] Blank. He has recently developed worsening of pain in his left foot and 2 new ischemic ulcers. He was brought to the emergency room due to excruciating pain and was seen by vascular surgery. It was felt that the patient may have occlusion of his prior angioplasty and stent. He was admitted and treated with IV heparin. Pateint was admitted for acute left leg ischemia planned for Angiography. Left lower extremity acute ischemia with ischemic ulcers s/p angioplasty and stent placement on heparin gtt. pain control with morphine management as per Dr blank Diabetes continue levemir and lispro. ESRD on HD continue maintenance HD CAD s/p CABG continue Plavix, statin , betablocker Systolic chf volume status to be managed by HD. Hyperlipidemia continue statin Hypertension continue coreg gout continue colchicine. Secondary hyperparathyroidism and hyperphosphatemia continue tums, renvela, calcitriol DVT prophylaxis on heparin infusion. Plan/VTE VTE Prophylaxis Ordered?: Yes VS, I&O, 24H, Fishbone Vital Signs/I&O Vital Signs Date Time Temp Pulse Resp B/P (MAP) Pulse Ox O2 Delivery O2 Flow Rate FiO2 04/20/18 21:00 85 121/78 04/20/18 06:00 99.2 15 98 04/18/18 15:39 Room Air I&O- Last 24 Hours up to 6 AM 04/20/18 06:00 Intake Total 1444 ml Output Total 0 ml Balance 1444 ml Laboratory Data 24H LABS Laboratory Tests 2 04/19/18 23:48: Activated Partial Thromboplast Time 65.5H 04/20/18 05:35: Activated Partial Thromboplast Time 99.9H, Immature Granulocyte % (Auto) 0.2, White Blood Count 6.1, Red Blood Count 3.46L, Hemoglobin 10.7L, Hematocrit 33.0L, Mean Corpuscular Volume 95.4, Mean Corpuscular Hemoglobin 30.9, Mean Corpuscular Hemoglobin Concent 32.4, Red Cell Distribution Width 13.0, Platelet Count 148L, Neutrophils (%) (Auto) 72.3H, Lymphocytes (%) (Auto) 13.7L, Mo nocytes (%) (Auto) 10.5H, Eosinophils (%) (Auto) 2.5, Basophils (%) (Auto) 0.8, Neutrophils # (Auto) 4.4, Lymphocytes # (Auto) 0.8L, Monocytes # (Auto) 0.6, Eosinophils # (Auto) 0.2, Basophils # (Auto) 0.1, Nucleated Red Blood Cells % (auto) 0.0, Anion Gap 11, Glomerular Filtration Rate 6.6L, Blood Urea Nitrogen 56#H, Creatinine 8.53*H, Sodium Level 136, Potassium Level 4.2, Chloride Level 99, Carbon Dioxide Level 26, Calcium Level 8.6L 04/20/18 11:16: Activated Partial Thromboplast Time 73.7H 04/20/18 16:27: Bedside Glucose (Misc Panel) 110 04/20/18 17:15: Activated Partial Thromboplast Time 68.0H 04/20/18 20:54: Bedside Glucose (Misc Panel) 171H CBC/BMP Laboratory Tests 04/20/18 05:35 Red Blood Count 3.46 L, Mean Corpuscular Volume 95.4, Mean Corpuscular Hemoglobin 30.9, Mean Corpuscular Hemoglobin Concent 32.4, Red Cell Distribution Width 13.0, Neutrophils (%) (Auto) 72.3 H, Lymphocytes (%) (Auto) 13.7 L, Monocytes (%) (Auto) 10.5 H, Eosinophils (%) (Auto) 2.5, Basophils (%) (Auto) 0.8, Neutrophils # (Auto) 4.4, Lymphocytes # (Auto) 0.8 L, Monocytes # (Auto) 0.6, Eosinophils # (Auto) 0.2, Basophils # (Auto) 0.1, Calcium Level 8.6 L Microbiology Microbiology 04/20/18 Stool Occult Blood (ALEXIS) - Final, Complete YENNY PLASCENCIA MD Apr 20, 2018 21:43
[2018-04-20 22:00] VITALS: BP 144/86
[2018-04-21 06:00] VITALS: BP 164/78
[2018-04-21 06:39] LABS: BASO % 0.5 % (0.0-1.0); EOS # 0.2 10^3/uL (0.0-0.50); EOS % 2.9 % (0.0-3.0); HEMATOCRIT 33.7 % (42.0-52.0); HEMOGLOBIN 10.9 g/dl (13.5-17.5); LYMPH # 1.2 10^3/uL (1.5-4.5); LYMPH % 18.5 % (24.0-44.0); MEAN CORPUSCULAR HEMOGLOBIN 30.8 pg (27.0-33.0); MEAN CORPUSCULAR HGB CONC 32.3 g/dl (32.0-36.5); MEAN CORPUSCULAR VOLUME 95.2 fl (80.0-96.0); MONO # 0.8 10^3/uL (0.0-0.8); MONO % 12.7 % (0.0-5.0); NEUTROPHILS % 65.1 % (36.0-66.0); PLATELET COUNT, AUTOMATED 152 10^3/uL (150-450); RED BLOOD COUNT 3.54 10^6/uL (4.30-6.10); WHITE BLOOD COUNT 6.2 10^3/uL (4.0-10.0)
[2018-04-21 07:03] LABS: CALCIUM LEVEL 8.9 MG/DL (8.8-10.2); CREATININE FOR GFR 5.55 MG/DL (0.70-1.30); GLOMERULAR FILTRATION RATE 10.9 (>49); POTASSIUM SERUM 4.1 MEQ/L (3.5-5.1)
[2018-04-21] MEDS: HumaLOG INSULIN (NovoLOG) PER UNIT SC SCH ×4 (07:30→20:55)
[2018-04-21] MEDS: CALCIUM CARBONATE 500 MG CHEW U/D PO SCH ×3 (08:03→17:19)
[2018-04-21] MEDS: CLOPIDOGREL 75 MG TAB PO SCH (08:03)
[2018-04-21] MEDS: (RENVELA) SEVELAMER **CARBONate** 800 MG TAB PO SCH ×3 (08:04→17:18)
[2018-04-21] MEDS: CARVedilol 3.125 MG TAB PO SCH ×2 (08:07→21:00)
[2018-04-21] MEDS: ROSUVASTATIN 10 MG TAB (CRESTOR) PO SCH (08:07)
[2018-04-21] MEDS: NEPHRO-VIT TAB (NEPHROCAPS) PO SCH (08:07)
[2018-04-21] MEDS: PANTOPRAZOLE 40MG TAB (PROTONIX) PO SCH (08:08)
[2018-04-21] MEDS: ACETAMINOPHEN 500 MG TAB PO PRN ×2 (08:09→18:06)
[2018-04-21] MEDS ORDERED: MORPHINE 30 MG TAB **MSIR PO PRN (10:45)
[2018-04-21] MEDS ORDERED: PILL CRUSHER/CUTTER 1 EACH XX PRN (11:00)
[2018-04-21] MEDS: GABAPENTIN 100 MG CAP PO SCH ×2 (13:53→21:00)
[2018-04-21] MEDS: LIDOCAINE 5% (LIDODERM) PATCH TD SCH (13:53)
[2018-04-21 14:00] VITALS: BP 166/77
[2018-04-21] MEDS ORDERED: CLOPIDOGREL 75 MG TAB PO SCH (14:45)
--- NOTE | 2018-04-21 14:50 | IPNPDOC ---
Subjective Date Seen The patient was seen on 04/21/18. Subjective Chief Complaint/HPI Continues to have severe pain of the left lower extremity Events since last encounter No new overnight events. Working with PT. Initial part has difficulty bearing weight on the left leg then after a few minutes able to put some weight on it. Objective Physical Examination General Exam: Positive: Alert, Cooperative, No Acute Distress Eye Exam: Positive: PERRLA, Conjunctiva & lids normal, EOMI; Negative: Sclera icteric ENT Exam: Positive: Atraumatic, Mucous membr. moist/pink, Pharynx Normal Neck Exam: Positive: Supple; Negative: JVD, thyromegaly Chest Exam: Positive: Clear to auscultation, Normal air movement, Other (continuous murmur heard in the left infraclavicular area. ) Heart Exam: Positive: Rate Normal, Regular Rhythm, Normal S1, Normal S2, Murmu rs; Negative: Rubs Abdomen Exam: Positive: Normal bowel sounds, Soft; Negative: Tenderness, Hepatospenomegaly Extremity Exam: Positive: Cyanosis (mild around the left big toe), Tenderness, Other (left toes pinkish with good capillary refill. ); Negative: Normal pulses Skin Exam: Positive: Other skin issue (dry ulcers at the left big toes, lateral aspect of left little toe, a spot in the left heel , lateral aspect of left leanne l) Assessment /Plan Assessment This is a 68-year-old gentleman with known history of hypertension, type 2 diabetes, end-stage renal disease requiring maintenance hemodialysis, coronary artery disease with prior coronary artery bypass graft (CABG) in 2018, history of multiple strokes affecting both the left and right sides with residual paresis, foot drops left > right, peripheral vascular disease, hyperlipidemia, Systolic CHF with EF of 30%, BPH, ischemic ulcers of the left lower extremity. He has had a prior angioplasty in left lower extremity status post left popliteal artery angioplasty and left superficial femoral artery angioplasty back in [place] [address] Blank. He has recently developed worsening of pain in his left foot and 2 new ischemic ulcers. He was brought to the emergency room due to excruciating pain and was seen by vascular surgery. It was felt that the patient may have occlusion of his prior angioplasty and stent. He was admitted and treated with IV heparin. Pateint was admitted for acute left leg ischemia planned for Angiography. Left lower extremity acute ischemia with ischemic ulcers s/p angioplasty and stent placement restarted plavix, heparin infusion stopped as per Dr Blank Neuropathy severe pain in the left left from ischemic neuropathy gets worse during HD due to decreased flow. Patient does also have diabetic neuropathy and neuropathy related to ESRD start on gabapentin and MSIR Diabetes with neuropathy continue levemir and lispro. ESRD on HD continue maintenance HD CAD s/p CABG continue Plavix, statin , betablocker Systolic chf volume status to be managed by HD. Hyperlipidemia continue statin Hypertension continue coreg gout continue colchicine. Secondary hyperparathyroidism and hyperphosphatemia continue tums, renvela, calcitriol DVT prophylaxis heparin Plan/VTE VTE Prophylaxis Ordered?: Yes VS, I&O, 24H, Fishbone Vital Signs/I&O Vital Signs Date Time Temp Pulse Resp B/P (MAP) Pulse Ox O2 Delivery O2 Flow Rate FiO2 04/21/18 12:08 18 04/21/18 08:07 97 154/62 04/21/18 06:00 98.0 95 04/18/18 15:39 Room Air I&O- Last 24 Hours up to 6 AM0 04/21/18 06:00 Intake Total 1614 ml Output Total 2000 ml Balance -386 ml Laboratory Data 24H LABS Laboratory Tests 2 04/20/18 16:27: Bedside Glucose (Misc Panel) 110 04/20/18 17:15: Activated Partial Thromboplast Time 68.0H 04/20/18 20:54: Bedside Glucose (Misc Panel) 171H 04/20/18 23:08: Activated Partial Thromboplast Time 67.5H 04/21/18 06:10: Immature Granulocyte % (Auto) 0.3, White Blood Count 6.2, Red Blood Count 3.54L, Hemoglobin 10.9L, Hematocrit 33.7L, Mean Corpuscular Volume 95.2, Mean Corpuscular Hemoglobin 30.8, Mean Corpuscular Hemoglobin Concent 32.3, Red Cell Distribution Width 13.0, Platelet Count 152, Neutrophils (%) (Auto) 65.1, Lymphocytes (%) (Auto) 18.5L, Monocytes (%) (Auto) 12.7H, Eosinophils (%) (Auto) 2.9, Basophils (%) (Auto) 0.5, Neutrophils # (Auto) 4.0, Lymphocytes # (Auto) 1.2L, Monocytes # (Auto) 0.8, Eosinophils # (Auto) 0.2, Basophils # (Auto) 0.0, Nucleated Red Blood Cells % (auto) 0.0, Activated Partial Thromboplast Time 85.7H, Anion Gap 7L, Glomerular Filtration Rate 10.9L, Blood Urea Nitrogen 30H, Creatinine 5.55H, Sodium Level 135L, Potassium Level 4.1, Chloride Level 101, Carbon Dioxide Level 27, Calcium Level 8.9 04/21/18 11:36: Bedside Glucose (Misc Panel) 169H 04/21/18 12:30: Activated Partial Thromboplast Time 74.0H CBC/BMP Laboratory Tests 04/21/18 06:10 Red Blood Count 3.54 L, Mean Corpuscular Volume 95.2, Mean Corpuscular Hemoglobin 30.8, Mean Corpuscular Hemoglobin Concent 32.3, Red Cell Distribution Width 13.0, Neutrophils (%) (Auto) 65.1, Lymphocytes (%) (Auto) 18.5 L, Monocytes (%) (Auto) 12.7 H, Eosinophils (%) (Auto) 2.9, Basophils (%) (Auto) 0.5, Neutrophils # (Auto) 4.0, Lymphocytes # (Auto) 1.2 L, Monocytes # (Auto) 0.8, Eosinophils # (Auto) 0.2, Basophils # (Auto) 0.0, Calcium Level 8.9 Microbiology Microbiology 04/20/18 Stool Occult Blood (ALEXIS) - Final, Complete YENNY PLASCENCIA MD Apr 21, 2018 14:50
[2018-04-21] MEDS: **NOTE PATIENT COMMENT** MISC XX SCH (21:00)
[2018-04-21] MEDS: HEPARIN SOD (PORCINE) 5000 UNITS/ML VIAL SQ SCH (21:00)
[2018-04-21 22:00] VITALS: BP 141/76
[2018-04-22 05:59] LABS: BASO % 0.6 % (0.0-1.0); EOS # 0.2 10^3/uL (0.0-0.50); EOS % 4.3 % (0.0-3.0); HEMATOCRIT 31.6 % (42.0-52.0); HEMOGLOBIN 9.9 g/dl (13.5-17.5); LYMPH # 1.1 10^3/uL (1.5-4.5); LYMPH % 21.9 % (24.0-44.0); MEAN CORPUSCULAR HEMOGLOBIN 30.6 pg (27.0-33.0); MEAN CORPUSCULAR HGB CONC 31.3 g/dl (32.0-36.5); MEAN CORPUSCULAR VOLUME 97.5 fl (80.0-96.0); MONO # 0.5 10^3/uL (0.0-0.8); MONO % 11.1 % (0.0-5.0); NEUTROPHILS % 61.7 % (36.0-66.0); PLATELET COUNT, AUTOMATED 149 10^3/uL (150-450); RED BLOOD COUNT 3.24 10^6/uL (4.30-6.10); WHITE BLOOD COUNT 4.9 10^3/uL (4.0-10.0)
[2018-04-22 06:00] VITALS: BP 171/78
[2018-04-22 06:23] LABS: CALCIUM LEVEL 8.7 MG/DL (8.8-10.2); CREATININE FOR GFR 7.95 MG/DL (0.70-1.30); GLOMERULAR FILTRATION RATE 7.2 (>49); POTASSIUM SERUM 4.6 MEQ/L (3.5-5.1)
[2018-04-22] MEDS: CALCIUM CARBONATE 500 MG CHEW U/D PO SCH ×3 (08:13→17:38)
[2018-04-22] MEDS: GABAPENTIN 100 MG CAP PO SCH ×2 (08:14→21:51)
[2018-04-22] MEDS: HumaLOG INSULIN (NovoLOG) PER UNIT SC SCH ×4 (08:14→21:00)
[2018-04-22] MEDS: NEPHRO-VIT TAB (NEPHROCAPS) PO SCH (08:14)
[2018-04-22] MEDS: PANTOPRAZOLE 40MG TAB (PROTONIX) PO SCH (08:14)
[2018-04-22] MEDS: ROSUVASTATIN 10 MG TAB (CRESTOR) PO SCH (08:14)
[2018-04-22] MEDS: CLOPIDOGREL 75 MG TAB PO SCH (08:14)
[2018-04-22] MEDS: (RENVELA) SEVELAMER **CARBONate** 800 MG TAB PO SCH ×3 (08:14→17:38)
[2018-04-22] MEDS: LIDOCAINE 5% (LIDODERM) PATCH TD SCH (08:15)
[2018-04-22] MEDS: CARVedilol 3.125 MG TAB PO SCH ×2 (08:15→21:51)
[2018-04-22] MEDS: HEPARIN SOD (PORCINE) 5000 UNITS/ML VIAL SQ SCH ×2 (08:15→21:51)
--- NOTE | 2018-04-22 12:04 | IPN ---
DATE OF SERVICE: 04/21/2018 SUBJECTIVE: The patient was seen and examined at the bedside today morning. The patient is afebrile, hemodynamically stable. He was dialyzed yesterday. He tolerated the hemodialysis procedure well. 2 liters of fluid was removed. However, the patient is complaining of severe pain in the left foot with severe sensitivity. He continues to be on intravenous (IV) heparin drip. OBJECTIVE: Vital signs: Temperature is 98.8 degrees Fahrenheit, blood pressure 166/77, pulse 82, respiratory rate of 20, saturating 95% on room air. Intake and output: This is no urine output recorded. Ultrafiltration with hemodialysis was 2 liters yesterday. Weight in the bed scale is 78.6 kg. PHYSICAL EXAMINATION: General: The patient is awake, alert, oriented times three, lying in bed, no apparent distress. Head and neck examination: Extraocular muscles intact. Pupils equally round and reactive to light. Mucous membranes are moist. Neck is supple. There is no jugular venous distention (JVD). Cardiovascular: S1, S2, regular rate. No edema of the right lower extremity. Respiratory: Chest is clear to auscultation bilaterally. Bilateral equal air entry. No rales or rhonchi. Abdomen: Is soft, positive bowel sounds, nontender, no organomegaly. Musculoskeletal: Left foot is severely tender and sensitive to touch. With the Doppler, left foot dorsalis pedis pulse is not present. Left-sided posterior tibial artery pulse is present. 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 He has expressive aphasia. Otherwise, no focal deficit. LABORATORY REVIEW: CBC showed a WBC of 6.2, hemoglobin 10. 9, platelets of 152. BMP showed a sodium 135, potassium 4.1, chloride 101, bicarbonate 27, BUN 30, creatinine is 5.5. CURRENT INPATIENT MEDICATIONS: The patient's medications were all reviewed by me. He continues to be on intravenous (IV) heparin drip. No change in the medications today as compared with yesterday. ASSESSMENT AND PLAN: 1. End-stage renal disease, on hemodialysis. The patient was dialyzed yesterday according to his regular Monday, Monday, Monday schedule. He tolerated the hemodialysis procedure well. 2. Left foot ischemia. The patient is status post angioplasty with stents. He continues to be on heparin drip and Plavix. Dorsalis pedis artery pulse is still not present, even with the Doppler. The patient is awaiting input from vascular surgery. 3. Anemia in end-stage renal disease. Hemoglobin is 10.9, which is optimal. No need of Aranesp administration at this point. 4. Chronic kidney disease, mineral bone disease. Continue current dose of Renvela and Tums.
[2018-04-22 14:00] VITALS: BP 120/73
--- NOTE | 2018-04-22 16:00 | IPNPDOC ---
Subjective Date Seen The patient was seen on 04/22/18. Subjective Chief Complaint/HPI Pain in his leg is a little better after morphine and gabapentin. HE can put more weight on the leg so can work better with PT. Objective Physical Examination General Exam: Positive: Alert, Cooperative, No Acute Distress Eye Exam: Positive: PERRLA, Conjunctiva & lids normal, EOMI; Negative: Sclera icteric ENT Exam: Positive: Atraumatic, Mucous membr. moist/pink, Pharynx Normal Neck Exam: Positive: Supple; Negative: JVD, thyromegaly Chest Exam: Positive: Clear to auscultation, Normal air movement, Other (continuous murmur heard in the left infraclavicular area. ) Heart Exam: Positive: Rate Normal, Regular Rhythm, Normal S1, Normal S2, Murmurs; Negative: Rubs Abdomen Exam: Positive: Normal bowel sounds, Soft; Negative: Tenderness, Hepatospenomegaly Extremity Exam: Positive: Cyanosis (mild around the left big toe), Tenderness, Other (left toes pinkish with good capillary refill. ); Negative: Normal pulses Skin Exam: Positive: Other skin issue (dry ulcers at the left big toes, lateral aspect of left little toe, a spot in the left heel , lateral aspect of left heel) Assessment /Plan Assessment This is a 68-year-old gentleman with known history of hypertension, type 2 diabetes, end-stage renal disease requiring maintenance hemodialysis, coronary artery disease with prior coronary artery bypass graft (CABG) in 2018, history of multiple strokes affecting both the left and right sides with residual paresis, foot drops left > right, peripheral vascular disease, h yperlipidemia, Systolic CHF with EF of 30%, BPH, ischemic ulcers of the left lower extremity. He has had a prior angioplasty in left lower extremity status post left popliteal artery angioplasty and left superficial femoral artery angioplasty back in [place] [address] Blank. He has recently developed worsening of pain in his left foot and 2 new ischemic ulcers. He was brought to the emergency room due to excruciating pain and was seen by vascular surgery. It was felt that the patient may have occlusion of his prior angioplasty and stent. He was admitted and treated with IV heparin. Pateint was admitted for acute left leg ischemia planned for Angiography. Left lower extremity acute ischemia with ischemic ulcers s/p angioplasty and stent placement restarted plavix, heparin infusion stopped Neuropathy severe pain in the left leg from ischemic neuropathy gets worse during HD due to decreased flow. Patient does also have diabetic neuropathy and neuropathy related to ESRD started on gabapentin and MSIR Diabetes with neuropathy continue levemir and lispro. ESRD on HD continue maintenance HD CAD s/p CABG continue Plavix, statin , betablocker Systolic chf volume status to be managed by HD. Hyperlipidemia continue statin Hypertension continue coreg gout continue colchicine. Secondary hyperparathyroidism and hyperphosphatemia continue tums, renvela, calcitriol DVT prophylaxis heparin Plan/VTE VTE Prophylaxis Ordered?: Yes VS, I&O, 24H, Fishbone Vital Signs/I&O Vital Signs Date Time Temp Pulse Resp B/P (MAP) Pulse Ox O2 Delivery O2 Flow Rate FiO2 04/22/18 08:15 83 141/58 04/22/18 06:00 98.0 20 95 04/18/18 15:39 Room Air I&O- Last 24 Hours up to 6 AM 04/22/18 06:00 Intake Total 1078 ml Balance 1078 ml Laboratory Data 24H LABS Laboratory Tests 2 04/21/18 16:47: Bedside Glucose (Misc Panel) 156H 04/21/18 19:42: Bedside Glucose (Misc Panel) 168H 04/22/18 05:37: Immature Granulocyte % (Auto) 0.4, White Blood Count 4.9, Red Blood Count 3.24L, Hemoglobin 9.9L, Hematocrit 31.6L, Mean Corpuscular Volume 97.5H, Mean Corpuscular Hemoglobin 30.6, Mean Corpuscular Hemoglobin Concent 31.3L, Red Cell Distribution Width 13.2, Platelet Count 149L, Neutrophils (%) (Auto) 61.7, Lymphocytes (%) (Auto) 21.9L, Monocytes (%) (Auto) 11.1H, Eosinophils (%) (Auto) 4.3H, Basophils (%) (Auto) 0.6, Neutrophils # (Auto) 3.0, Lymphocytes # (Auto) 1.1L, Monocytes # (Auto) 0.5, Eosinophils # (Auto) 0.2, Basophils # (Auto) 0.0, Nucleated Red Blood Cells % (auto) 0.0, Anion Gap 10, Glomerular Filtration Rate 7.2L, Blood Urea Nitrogen 48#H, Creatinine 7.95H, Sodium Level 138, Potassium Level 4.6, Chloride Level 101, Carbon Dioxide Level 27, Calcium Level 8.7L 04/22/18 11:32: Bedside Glucose (Misc Panel) 206H CBC/BMP Laboratory Tests 04/22/18 05:37 Red Blood Count 3.24 L, Mean Corpuscular Volume 97.5 H, Mean Corpuscular Hemoglobin 30.6, Mean Corpuscular Hemoglobin Concent 31.3 L, Red Cell Distribution Width 13.2, Neutrophils (%) (Auto) 61.7, Lymphocytes (%) (Auto) 21.9 L, Monocytes (%) (Auto) 11.1 H, Eosinophils (%) (Auto) 4.3 H, Basophils (%) (Auto) 0.6, Neutrophils # (Auto) 3.0, Lymphocytes # (Auto) 1.1 L, Monocytes # (Auto) 0.5, Eosinophils # (Auto) 0.2, Basophils # (Auto) 0.0, Calcium Level 8.7 L Microbiology Microbiology 04/20/18 Stool Occult Blood ([facility]EXIS) - Final, Complete YENNY PLASCENCIA MD Apr 22, 2018 16:00
[2018-04-22] MEDS ORDERED: DARBEPOETIN 100 MCG/0.5 ML *DIALYSIS* SYRINGE (J0882) IV SCH (17:15)
--- NOTE | 2018-04-22 17:43 | IPN ---
DATE: 04/22/2018 SUBJECTIVE: Patient was seen and examined at the bedside today morning. Patient is afebrile, hemodynamically stable. He reports his left foot pain is significantly better today as compared with yesterday. His heparin was stopped. He was seen by vascular surgery. Topical lidocaine patch was also given and he was also started on gabapentin. His left foot pain and sensitivity is significantly better today as compared with yesterday. OBJECTIVE: VITAL SIGNS: Temperature 98 degrees Fahrenheit, blood pressure 141/58, pulse 83, respiratory rate 20, saturating 95% on room air. Intake and output: There is no urine output recorded. Weight in the bed scale was 78.6 kg yesterday, there is no bed scale weight available today. PHYSICAL EXAMINATION: GENERAL: Patient is awake, alert, oriented times three, laying in bed, no apparent distress. HEAD and NECK EXAM: Extraocular muscles intact. Pupils equally round and reactive to light. Mucous membranes are moist. Neck is supple, there is no jugular venous distention (JVD). CARDIOVASCULAR: S1, S2, regular rate. No edema of the right lower extremity. RESPIRATORY: Chest is clear to auscultation bilaterally. Bilateral equal air entry. No rales or rhonchi. ABDOMEN: Soft, positive bowel sounds, nontender. No organomegaly. MUSCULOSKELETAL: Left foot tenderness and sensitivity is better today. He is wearing socks on the left foot. 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 LABORATORY REVIEW: CBC showed WBC 4.9, hemoglobin 9.9, platelets 149. BMP showed sodium 138, potassium 4.6, chloride 101, bicarbonate 27, BUN 48, creatinine 7.9. CURRENT INPATIENT MEDICATIONS: Patient's medications were all reviewed by me. His heparin drip has been stopped. He was started on gabapentin 100 mg by mouth twice a day. No other change in the medications today as compared with yesterday. ASSESSMENT AND PLAN: 1. End-stage renal disease on hemodialysis. The patient's regular dialysis days are Monday, Monday, Monday. He will be dialyzed tomorrow according to his regular schedule. 2. Left foot ischemia. Patient's pain and sensitivity is significantly better. Continue current dose of Plavix. Heparin has been stopped. 3. Anemia in end-stage renal disease. Hemoglobin is optimal. Patient will be given a dose of Aranesp tomorrow with hemodialysis.
[2018-04-22] MEDS: **NOTE PATIENT COMMENT** MISC XX SCH (21:00)
[2018-04-22 22:00] VITALS: BP 177/78
[2018-04-23 06:00] VITALS: BP 166/70
[2018-04-23] MEDS: LIDOCAINE 5% (LIDODERM) PATCH TD SCH (06:19)
[2018-04-23] MEDS: (RENVELA) SEVELAMER **CARBONate** 800 MG TAB PO SCH ×3 (06:21→17:52)
[2018-04-23] MEDS: CALCIUM CARBONATE 500 MG CHEW U/D PO SCH ×3 (06:22→17:53)
[2018-04-23] MEDS: CLOPIDOGREL 75 MG TAB PO SCH (06:22)
[2018-04-23] MEDS: GABAPENTIN 100 MG CAP PO SCH ×2 (06:23→21:22)
[2018-04-23] MEDS: CARVedilol 3.125 MG TAB PO SCH (06:25)
[2018-04-23 06:27] LABS: BASO % 0.6 % (0.0-1.0); EOS # 0.2 10^3/uL (0.0-0.50); EOS % 4.1 % (0.0-3.0); HEMATOCRIT 30.2 % (42.0-52.0); HEMOGLOBIN 9.7 g/dl (13.5-17.5); LYMPH # 1.2 10^3/uL (1.5-4.5); MEAN CORPUSCULAR HEMOGLOBIN 30.9 pg (27.0-33.0); MEAN CORPUSCULAR HGB CONC 32.1 g/dl (32.0-36.5); MEAN CORPUSCULAR VOLUME 96.2 fl (80.0-96.0); MONO # 0.6 10^3/uL (0.0-0.8); MONO % 11.3 % (0.0-5.0); NEUTROPHILS # 3.3 10^3/uL (1.8-7.7); NEUTROPHILS % 61.6 % (36.0-66.0); PLATELET COUNT, AUTOMATED 163 10^3/uL (150-450); RED BLOOD COUNT 3.14 10^6/uL (4.30-6.10); WHITE BLOOD COUNT 5.4 10^3/uL (4.0-10.0)
[2018-04-23 06:53] LABS: CALCIUM LEVEL 8.8 MG/DL (8.8-10.2); CREATININE FOR GFR 9.65 MG/DL (0.70-1.30); GLOMERULAR FILTRATION RATE 5.8 (>49); POTASSIUM SERUM 4.5 MEQ/L (3.5-5.1)
[2018-04-23] MEDS: HumaLOG INSULIN (NovoLOG) PER UNIT SC SCH ×4 (08:29→21:00)
[2018-04-23] MEDS: HEPARIN SOD (PORCINE) 5000 UNITS/ML VIAL SQ SCH ×2 (08:29→21:25)
[2018-04-23] MEDS ORDERED: HEPARIN 1,000 UNITS/ML 10ML VIAL (FOR RADIOLOGY& DIALYSIS ONLY) IV ONE (11:30)
[2018-04-23] MEDS: ROSUVASTATIN 10 MG TAB (CRESTOR) PO SCH (12:11)
[2018-04-23] MEDS: PANTOPRAZOLE 40MG TAB (PROTONIX) PO SCH (12:11)
[2018-04-23] MEDS: NEPHRO-VIT TAB (NEPHROCAPS) PO SCH (12:17)
--- NOTE | 2018-04-23 12:50 | IPN ---
DATE OF SERVICE: 04/23/2018 SUBJECTIVE: The patient was seen and examined at the bedside today morning. He reports that pain in the left foot is getting better. He has a lidocaine patch on the left foot. Today is the patient's regular day of dialysis. The patient is also starting to get physical therapy, as well. OBJECTIVE: VITAL SIGNS: Temperature 98.5 degrees Fahrenheit, blood pressure 166/70, pulse 82, respiratory rate of 18, saturating 92% on room air. INTAKE AND OUTPUT: There is no urine output recorded. Weight in the bed scale is not available at this point. PHYSICAL EXAMINATION: GENERAL: The patient is awake, alert, oriented times three, laying in bed, no apparent distress. HEAD AND NECK EXAMINATION: Extraocular muscles intact. Pupils equally round and reactive to light. Mucous membranes are moist. Neck is supple. There is no jugular venous distention (JVD). CARDIOVASCULAR: S1, S2, regular rate. No edema of the right lower extremity. RESPIRATORY: Chest is clear to auscultation bilaterally. Bilateral equal air entry. No rales or rhonchi. ABDOMEN: Soft, positive bowel sounds, nontender. No organomegaly. MUSCULOSKELETAL: Left foot is tender to palpation, and left foot has a lidocaine patch, as well. 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 Otherwise, he follows commands and moves extremities. LABORATORY REVIEW: Complete blood count (CBC) showed a WBC 5.4, hemoglobin 9.7, platelets are 163. Basic metabolic profile (BMP) showed sodium 134, potassium 4.5, chloride 97, bicarbonate 25, BUN 68, creatinine is 9.6. CURRENT INPATIENT MEDICATIONS: The patient's medications were all reviewed by me. There is no change in medications today as compared with yesterday. ASSESSMENT AND PLAN: 1. End-stage renal disease, on hemodialysis. Today is the patient's regular day of dialysis. I will try to remove at least 2 kg of fluid during dialysis as tolerated by his blood pressure. 2. Anemia in end-stage renal disease. Hemoglobin is 9.7, which is suboptimal. The patient will get a dose of Aranesp with dialysis today. 3. Left foot ischemia. Pain and sensitivity is getting better. Continue current dose of Plavix. Continue lidocaine patch in the left foot. 4. Hyponatremia. The patient has mild hyponatremia secondary to hypovolemia. Sodium will improve after hemodialysis.
--- NOTE | 2018-04-23 14:05 | IPNPDOC ---
Date Seen The patient was seen on 04/23/18. Progress Note SUBJECTIVE: Patient was seen and examined today. He had an episode of nausea and vomiting this morning however this has since resolved. He is due for dialysis this morning. Patient states that he has had improvement in his pain. He currently denies any shortness of breath or chest pain. OBJECTIVE PHYSICAL EXAMINATION: VITAL SIGNS: Please see below. GENERAL: Awake, alert, and oriented. He is in no acute distress. Lying in bed comfortably HEENT: Atraumatic normocephalic. Eyes are non-icteric. Trachea is midline CARDIOVASCULAR: Regular rate and rhythm. No clicks or rubs or murmurs RESPIRATORY: Clear vesicular breath sounds bilaterally. Good respiratory effort ABDOMINAL: Obese, soft, nondistended. Nontender to palpation in all four quadrants. No rebound tenderness or guarding EXTREMITIES: Left toe ulceration. Left foot edematous. Nonpalpable posterior tibial and dorsalis pedis pulses on the left. Posterior tibial and DP pulses with doppler. PSYCHOLOGICAL: Mood and affect appear appropriate LABORATORY DATA, IMAGING STUDIES, MICROBIOLOGY: Please see below. DVT prophylaxis ordered?: YES ASSESSMENT AND PLAN: Patient is a 68 year old male with a history of HTN, DMII, ESRD on HD, CABG in 2018, multiple CVAs, PVD, systolic CHF with EF 30%, and ischemic ulcers of the left extremity who presented with limb ischemia secondary to occlusion of his prior left popliteal artery angioplasty and stent. Patient was admitted and treated with IV heparin. PROBLEMS: 1. Left lower extremity acute ischemia with ischemic ulcers -S/P angioplasty and stent placement with Dr. Blank of vascular surgery -Patient currently on Plavix. Heparin has been discontinued. -DP and PT pulses detected with doppler -Patient currently notes improvement in his pain. 2. Hypertension -Patient has been hypertensive during his hospital stay. Coreg changed to 6.25 BID 2. ESRD pn HD -Patient is currently receiving HD 3. Diabetic neuropathy -Levimir and lispro 4. CAD s/p CABG in 2018 -Plavix, statin, and beta hunter 5. Systolic CHF -Patient appears euvolemic. Currently receiving HD 6. Hyperlipidemia -Statin 7. Hx of Gout -Continue colchicine 8. DVT prophylaxis -Heparin SQ Disposition: Awaiting PT clearance GME ATTESTATION My faculty preceptor for this patient encounter was physically present during the encounter and was fully available. All aspects of the patient interview, examination, medical decision making process, and medical care plan development were reviewed and approved by the faculty preceptor. The faculty preceptor is aware and concurs with the plan as stated in the body of this note and will attest to such by his/her cosignature. VS, I&O, 24H, Fishbone Vital Signs/I&O Vital Signs Date Time Temp Pulse Resp B/P (MAP) Pulse Ox O2 Delivery O2 Flow Rate FiO2 04/23/18 06:25 82 166/70 04/23/18 06:00 98.5 18 92 04/18/18 15:39 Room Air I&O- Last 24 Hours up to 6 AM 04/23/18 06:00 Intake Total 1320 ml Output Total 0 ml Balance 1320 ml Laboratory Data 24H LABS Laboratory Tests 2 04/22/18 11:32: Bedside Glucose (Misc Panel) 206H 04/22/18 16:34: Bedside Glucose (Misc Panel) 127H 04/22/18 21:34: Bedside Glucose (Misc Panel) 182H 04/23/18 05:41: Anion Gap 12, Glomerular Filtration Rate 5.8L, Blood Urea Nitrogen 68H, Creatinine 9.65*H, Sodium Level 134L, Potassium Level 4.5, Chloride Level 97L, Carbon Dioxide Level 25, Calcium Level 8.8 04/23/18 05:42: Immature Granulocyte % (Auto) 0.4, White Blood Count 5.4, Red Blood Count 3.14L, Hemoglobin 9.7L, Hematocrit 30.2L, Mean Corpuscular Volume 96.2H, Mean Corpuscular Hemoglobin 30.9, Mean Corpuscular Hemoglobin Concent 32.1, Red Cell Distribution Width 13.2, Platelet Count 163, Neutrophils (%) (Auto) 61.6, Lym phocytes (%) (Auto) 22.0L, Monocytes (%) (Auto) 11.3H, Eosinophils (%) (Auto) 4.1H, Basophils (%) (Auto) 0.6, Neutrophils # (Auto) 3.3, Lymphocytes # (Auto) 1.2L, Monocytes # (Auto) 0.6, Eosinophils # (Auto) 0.2, Basophils # (Auto) 0.0, Nucleated Red Blood Cells % (auto) 0.0 CBC/BMP Laboratory Tests 04/23/18 05:41 Calcium Level 8.8 04/23/18 05:42 Red Blood Count 3.14 L, Mean Corpuscular Volume 96.2 H, Mean Corpuscular Hemoglobin 30.9, Mean Corpuscular Hemoglobin Concent 32.1, Red Cell Distribution Width 13.2, Neutrophils (%) (Auto) 61.6, Lymphocytes (%) (Auto) 22.0 L, Monocytes (%) (Auto) 11.3 H, Eosinophils (%) (Auto) 4.1 H, Basophils (%) (Auto) 0.6, Neutrophils # (Auto) 3.3, Lymphocytes # (Auto) 1.2 L, Monocytes # (Auto) 0.6, Eosinophils # (Auto) 0.2, Basophils # (Auto) 0.0 Microbiology Microbiology 04/20/18 Stool Occult Blood (ALEXIS) - Final, Complete GME ATTESTATION GME ATTESTATION My faculty preceptor for this patient encounter was physically present during th e encounter and was fully available. All aspects of the patient interview, examination, medical decision making process, and medical care plan development were reviewed and approved by the faculty preceptor. The faculty preceptor is aware and concurs with the plan as stated in the body of this note and will attest to such by his/her cosignature. DOUGLAS BHAKTA DO Apr 23, 2018 09:03
[2018-04-23] MEDS: **NOTE PATIENT COMMENT** MISC XX SCH (21:00)
[2018-04-23] MEDS: CARVedilol 6.25 MG TAB PO SCH (21:24)
[2018-04-23 22:00] VITALS: BP 169/77
[2018-04-24 06:00] VITALS: BP 160/74
[2018-04-24 06:03] LABS: BASO % 0.3 % (0.0-1.0); EOS # 0.1 10^3/uL (0.0-0.50); HEMATOCRIT 31.8 % (42.0-52.0); HEMOGLOBIN 10.2 g/dl (13.5-17.5); LYMPH # 0.8 10^3/uL (1.5-4.5); MEAN CORPUSCULAR HEMOGLOBIN 31.5 pg (27.0-33.0); MEAN CORPUSCULAR HGB CONC 32.1 g/dl (32.0-36.5); MEAN CORPUSCULAR VOLUME 98.1 fl (80.0-96.0); MONO # 0.5 10^3/uL (0.0-0.8); MONO % 8.9 % (0.0-5.0); NEUTROPHILS # 4.5 10^3/uL (1.8-7.7); PLATELET COUNT, AUTOMATED 176 10^3/uL (150-450); RED BLOOD COUNT 3.24 10^6/uL (4.30-6.10); WHITE BLOOD COUNT 5.9 10^3/uL (4.0-10.0)
[2018-04-24 06:25] LABS: CALCIUM LEVEL 8.8 MG/DL (8.8-10.2); CREATININE FOR GFR 6.69 MG/DL (0.70-1.30); GLOMERULAR FILTRATION RATE 8.8 (>49); POTASSIUM SERUM 4.7 MEQ/L (3.5-5.1)
[2018-04-24] MEDS: PANTOPRAZOLE 40MG TAB (PROTONIX) PO SCH (08:26)
[2018-04-24] MEDS: (RENVELA) SEVELAMER **CARBONate** 800 MG TAB PO SCH ×3 (08:26→17:23)
[2018-04-24] MEDS: CARVedilol 6.25 MG TAB PO SCH ×2 (08:26→21:03)
[2018-04-24] MEDS: CLOPIDOGREL 75 MG TAB PO SCH (08:26)
[2018-04-24] MEDS: ROSUVASTATIN 10 MG TAB (CRESTOR) PO SCH (08:26)
[2018-04-24] MEDS: GABAPENTIN 100 MG CAP PO SCH (08:26)
[2018-04-24] MEDS: NEPHRO-VIT TAB (NEPHROCAPS) PO SCH (08:26)
[2018-04-24] MEDS: CALCIUM CARBONATE 500 MG CHEW U/D PO SCH ×3 (08:27→17:23)
[2018-04-24] MEDS: HumaLOG INSULIN (NovoLOG) PER UNIT SC SCH ×4 (08:27→20:56)
[2018-04-24] MEDS: HEPARIN SOD (PORCINE) 5000 UNITS/ML VIAL SQ SCH ×2 (08:27→21:04)
[2018-04-24] MEDS: LIDOCAINE 5% (LIDODERM) PATCH TD SCH (08:27)
[2018-04-24] MEDS: ACETAMINOPHEN 500 MG TAB PO PRN (08:43)
--- NOTE | 2018-04-24 09:37 | IPNPDOC ---
Date Seen The patient was seen on 04/24/18. Progress Note SUBJECTIVE: Patient was seen and examined this morning. He is accompanied by his this morning. He states that he is in a little more pain today compared to yesterday although he is overall feeling better. He states that the Gabapentin has helped a lot. However, he has not been taking his MSIR as he wants to avoid that medication. He says that if the pain is bad enough he will take it. He otherwise has no complaints today. OBJECTIVE PHYSICAL EXAMINATION: VITAL SIGNS: Please see below. GENERAL: Awake, alert, and oriented. He appears in no acute distress. Laying comfortably in bed. HEENT: Atraumatic, normocephalic. Eyes are non-icteric. Trachea is midline. Mucous membranes are pink and moist CARDIOVASCULAR: Normal S1, S2. Regular rate and rhythm. No clicks rubs, or murmurs appreciated RESPIRATORY: Clear vesicular breath sounds bilaterally with good respiratory effort. No wheezes, rhonchi, or rales ABDOMINAL: Soft, nontender to palpation throughout. Positive bowel sounds EXTREMITIES: Left great toe dry ulceration. Ulceration on left lateral foot. Left foot is edematous and with erythema. Posterior tibial and dorsalis pedis pulses are nonpalpable but detected with doppler PSYCHOLOGICAL: Mood and affect appear normal LABORATORY DATA, IMAGING STUDIES, MICROBIOLOGY: Please see below. DVT prophylaxis ordered?: YES ASSESSMENT AND PLAN: Patient is a 68 year old male with a history of HTN, DMII, ESRD on HD, CABG in 2018, multiple CVAs, PVD, systolic CHF with EF 30%, and ischemic ulcers of the left extremity who presented with acute limb ischemia secondary to occlusion of his prior left popliteal artery angioplasty and stent. Patient was admitted and treated with IV heparin. PROBLEMS: 1. Left lower extremity acute ischemia with ischemic ulcers -S/P angioplasty and stent placement with Dr. Blank of Vascular Surgery -Patient is currently on Plavix -PT and DP pulses detected with doppler -Patient has noted improvement in his pain. His had noted that the patient appeared a little confused likely secondary to his Gabapentin. This dose has been reduced -Working with physical therapy. Patient is still unable to ambulate. 2. Hypertension -Patients Coreg was changed to 6.25 BID yesterday. He still remains hypertensive although he is still in pain but refusing his pain medications 3. ESRD on HD -Patient is to be dialyzed tomorrow -Patient is to receive fistulogram tomorrow AM. Will make NPO after midnight for procedure. 4. Diabetic Neuropathy -Levimir and Lispro -Gabapentin 5. Systolic CHF -Euvolemic. Currently on HD 6. Hyperlipidemia -Continue statin 7. Hx of Gout -Colchicine 8. DVT prophylaxis -Heparin SQ DISPOSITION: Patient needs further work with physical therapy before he is safe for discharge. His pain is fairly well managed. He refuses to take opioid medications. VS, I&O, 24H, Fishbone Vital Signs/I&O Vital Signs Date Time Temp Pulse Resp B/P (MAP) Pulse Ox O2 Delivery O2 Flow Rate FiO2 04/24/18 08:26 81 160/74 04/24/18 06:00 98.3 20 96 04/18/18 15:39 Room Air I&O- Last 24 Hours up to 6 AM 04/24/18 06:00 Intake Total 870 ml Output Total 2000 ml Balance -1130 ml Laboratory Data 24H LABS Laboratory Tests 2 04/23/18 11:23: Bedside Glucose (Misc Panel) 155H 04/23/18 17:23: Bedside Glucose (Misc Panel) 110 04/23/18 20:51: Bedside Glucose (Misc Panel) 236H 04/24/18 05:32: Immature Granulocyte % (Auto) 0.8, White Blood Count 5.9, Red Blood Count 3.24L, Hemoglobin 10.2L, Hematocrit 31.8L, Mean Corpuscular Volume 98.1H, Mean Corpuscular Hemoglobin 31.5, Mean Corpuscular Hemoglobin Concent 32.1, Red Cell Distribution Width 13.0, Platelet Count 176, Neutrophils (%) (Auto) 75.0H, Lymphocytes (%) (Auto) 13.0L, Monocytes (%) (Auto) 8.9H, Eosinophils (%) (Auto) 2.0, Basophils (%) (Auto) 0.3, Neutrophils # (Auto) 4.5, Lymphocytes # (Auto) 0.8L, Monocytes # (Auto) 0.5, Eosinophils # (Auto) 0.1, Basophils # (Auto) 0.0, Nucleated Red Blood Cells % (auto) 0.0, Anion Gap 7L, Glomerular Filtration Rate 8.8L, Blood Urea Nitrogen 38H, Creatinine 6.69H, Sodium Level 134L, Potassium Level 4.7, Chloride Level 98, Carbon Dioxide Level 29, Calcium Level 8.8 CBC/BMP Laboratory Tests 04/24/18 05:32 Red Blood Count 3.24 L, Mean Corpuscular Volume 98.1 H, Mean Corpuscular Hemoglobin 31.5, Mean Corpuscular Hemoglobin Concent 32.1, Red Cell Distribution Width 13.0, Neutrophils (%) (Auto) 75.0 H, Lymphocytes (%) (Auto) 13.0 L, Monocytes (%) (Auto) 8.9 H, Eosinophils (%) (Auto) 2.0, Basophils (%) (Auto) 0.3, Neutrophils # (Auto) 4.5, Lymphocytes # (Auto) 0.8 L, Monocytes # (Auto) 0.5, Eosinophils # (Auto) 0.1, Basophils # (Auto) 0.0, Calcium Level 8.8 Microbiology Microbiology 04/20/18 Stool Occult Blood (ALEXIS) - Final, Complete GME ATTESTATION GME ATTESTATION My faculty preceptor for this patient encounter was physically present during the encounter and was fully available. All aspects of the patient interview, examination, medical decision making process, and medical care plan development were reviewed and approved by the faculty preceptor. The faculty preceptor is aware and concurs with the plan as stated in the body of this note and will attest to such by his/her cosignature. DOUGLAS BHAKTA DO Apr 24, 2018 09:37
--- NOTE | 2018-04-24 13:32 | IPN ---
DATE OF SERVICE: 04/24/2018 SUBJECTIVE: The patient was seen and examined at the bedside today morning. He is afebrile, hemodialysis stable. He was dialyzed yesterday, 2 liters of fluid was removed. He reports that he is making progress with the physical therapy now, pain in the left foot is improving. OBJECTIVE: VITAL SIGNS: Temperature is 98.3 degrees Fahrenheit, blood pressure 160/74, pulse is 81, respiratory rate of 20, saturating 96% on room air. INTAKE/OUTPUT: There is no urine output recorded. Weight in the bed scale is not available. Ultrafiltration with hemodialysis was 2 liters yesterday. PHYSICAL EXAMINATION: GENERAL: The patient is awake, alert, oriented times three, laying in bed, in no apparent distress. HEAD AND NECK EXAM: Extraocular muscles intact. Pupils equally round and reactive to light. Mucous membranes are moist. Neck is supple. There is no jugular venous distention (JVD) is mildly elevated. CARDIOVASCULAR: S1, S2, regular rate. No edema of the right lower extremity. RESPIRATORY: Chest is clear to auscultation bilaterally. Bilateral equal air entry. No rales or rhonchi. ABDOMEN: Abdomen is soft. Positive bowel sounds, nontender. No organomegaly. MUSCULOSKELETAL: Left foot is moderately tender to palpation, otherwise normal range of movement. CENTRAL NERVOUS SYSTEM: He has expressive aphasia, but he is able to communicate and follow commands. LAB REVIEW: CBC showed a WBC of 5.9, hemoglobin 10.2, platelets are 176. BMP showed sodium 134, potassium 4.7, chloride 98, bicarbonate 29, BUN 38, creatinine is 6.6. CURRENT INPATIENT MEDICATIONS: The patient's medications were all reviewed by me. IV morphine has been stopped and gabapentin dose has been decreased to 100 mg by mouth daily. Coreg dose has been increased to 6.25 mg by mouth twice a day. ASSESSMENT AND PLAN: 1. End-stage renal disease on hemodialysis. Patient's regular days of dialysis are Monday, Monday, and Monday, he was dialyzed yesterday. Next hemodialysis session will be tomorrow. Volume status is optimum. 2. Anemia and end-stage renal disease. Patient was given dose of Aranesp. Hemoglobin level is improving. 3. Hypertension with end-stage renal disease. Blood pressures were elevated. His Coreg dose has already been increased by primary team to 6.25 mg by mouth twice a day. 4. Left foot ischemia. Patient got the angiogram and stent placed during this hospitalization. He continues to be on Plavix. Gabapentin dose has been decreased to 100 mg by mouth daily because of altered mental status secondary to use of gabapentin last night.
[2018-04-24 14:00] VITALS: BP 144/65
[2018-04-24] MEDS: **NOTE PATIENT COMMENT** MISC XX SCH (21:00)
[2018-04-24 22:00] VITALS: BP 167/72
[2018-04-25 06:00] VITALS: BP 159/72
[2018-04-25 06:12] LABS: BASO % 0.4 % (0.0-1.0); EOS # 0.1 10^3/uL (0.0-0.50); EOS % 1.8 % (0.0-3.0); HEMATOCRIT 29.5 % (42.0-52.0); HEMOGLOBIN 9.6 g/dl (13.5-17.5); LYMPH # 0.8 10^3/uL (1.5-4.5); LYMPH % 11.1 % (24.0-44.0); MEAN CORPUSCULAR HEMOGLOBIN 31.8 pg (27.0-33.0); MEAN CORPUSCULAR HGB CONC 32.5 g/dl (32.0-36.5); MEAN CORPUSCULAR VOLUME 97.7 fl (80.0-96.0); MONO # 0.6 10^3/uL (0.0-0.8); MONO % 9.3 % (0.0-5.0); NEUTROPHILS # 5.2 10^3/uL (1.8-7.7); NEUTROPHILS % 76.5 % (36.0-66.0); PLATELET COUNT, AUTOMATED 188 10^3/uL (150-450); RED BLOOD COUNT 3.02 10^6/uL (4.30-6.10); WHITE BLOOD COUNT 6.8 10^3/uL (4.0-10.0)
[2018-04-25] MEDS: PANTOPRAZOLE 40MG TAB (PROTONIX) PO SCH (06:21)
[2018-04-25] MEDS: CLOPIDOGREL 75 MG TAB PO SCH (06:22)
[2018-04-25] MEDS: NEPHRO-VIT TAB (NEPHROCAPS) PO SCH (06:22)
[2018-04-25] MEDS: ROSUVASTATIN 10 MG TAB (CRESTOR) PO SCH (06:22)
[2018-04-25] MEDS: CARVedilol 6.25 MG TAB PO SCH ×2 (06:23→22:06)
[2018-04-25] MEDS: LIDOCAINE 5% (LIDODERM) PATCH TD SCH (06:24)
[2018-04-25] MEDS: HEPARIN SOD (PORCINE) 5000 UNITS/ML VIAL SQ SCH ×2 (06:24→21:00)
[2018-04-25 06:37] LABS: CALCIUM LEVEL 9.2 MG/DL (8.8-10.2); CREATININE FOR GFR 8.82 MG/DL (0.70-1.30); GLOMERULAR FILTRATION RATE 6.4 (>49); POTASSIUM SERUM 4.5 MEQ/L (3.5-5.1)
[2018-04-25] MEDS: GABAPENTIN 100 MG CAP PO SCH (06:49)
[2018-04-25] MEDS: HumaLOG INSULIN (NovoLOG) PER UNIT SC SCH ×5 (07:30→21:00)
[2018-04-25] MEDS: CALCIUM CARBONATE 500 MG CHEW U/D PO SCH ×4 (07:58→18:00)
[2018-04-25] MEDS: (RENVELA) SEVELAMER **CARBONate** 800 MG TAB PO SCH ×4 (07:58→19:03)
--- NOTE | 2018-04-25 10:57 | IPNPDOC ---
Date Seen The patient was seen on 04/25/18. Progress Note SUBJECTIVE: Patient was seen and examined this morning. He currently states that his pain is more controlled compared to yesterday. He denies any nausea, vomiting, diarrhea, or constipation. He denies any chest pain or shortness of breath. He is to be receiving a fistulogram today followed by dialysis. He is continuing to work with physical therapy although he is still not safe for discharge as he can not weight bear on his left foot. OBJECTIVE PHYSICAL EXAMINATION: VITAL SIGNS: Please see below. GENERAL: Patient awake, alert, oriented. He is lying comfortably in bed. He appears in no acute distress HEENT:. Atraumatic, normocephalic. Eyes nonicteric. Trachea is midline. Mucous membranes are pink and moist CARDIOVASCULAR: Normal S1, S2, regular rate and rhythm. No clicks, rubs or mur murs appreciated. RESPIRATORY:. Clear vesicular breath sounds bilaterally. Respiratory effort. No wheezes, rhonchi or rales. ABDOMINAL:. Soft, nontender palpation throughout. Positive bowel sounds EXTREMITIES:. Left great toe dry ulceration with ulceration. The left lateral foot. Left foot is edematous with erythema. However, swelling has decreased today. Posterior tibial and dorsalis pedis pulses are nonpalpable but detectable with Doppler NEUROLOGICAL: No focal neurological deficits PSYCHOLOGICAL:. Mood and affect appear appropriate LABORATORY DATA, IMAGING STUDIES, MICROBIOLOGY: Please see below. DVT prophylaxis ordered?: Yes ASSESSMENT AND PLAN: Patient is a 68 year old male with a history of HTN, DMII, ESRD on HD, CABG in 2018, multiple CVAs, PVD, systolic CHF with EF 30%, and isch emic ulcers of the left extremity who presented with acute limb ischemia secondary to occlusion of his prior left popliteal artery angioplasty and stent. Patient was admitted and treated with IV heparin. PROBLEMS: 1. Left lower extremity acute ischemia with ischemic ulcers -S/P angioplasty and stent placement with Dr. Blank of Vascular Surgery -Patient is currently on Plavix -PT and DP pulses detected with doppler -Patient's gabapentin was reduced yesterday secondary to reported confusion from the patient's . Patient's pain continues to be reasonably controlled -Working with physical therapy. Patient is still unable to ambulate and not safe for discharge from a physical therapy standpoint 2. Hypertension -Patients Coreg was changed to 6.25 BID. 3. ESRD on HD -Dr. Blank vascular surgery had canceled the patient's fistulogram. -Patient remains on hemodialysis schedule 4. Diabetic Neuropathy -Levimir and Lispro -Gabapentin 5. Systolic CHF -Euvolemic. Currently on HD 6. Hyperlipidemia -Continue statin 7. Hx of Gout -Colchicine 8. DVT prophylaxis -Heparin SQ DISPOSITION: Patient is improving from a medical standpoint. He remains on safe for discharge from a physical therapy standpoint. Likely. ALC status within the next 24-48 hrs. VS, I&O, 24H, Fishbone VS, I&O, 24H, Fishbone Vital Signs/I&O Vital Signs Date Time Temp Pulse Resp B/P (MAP) Pulse Ox O2 Delivery O2 Flow Rate FiO2 04/25/18 06:23 79 159/72 04/25/18 06:00 99.0 20 96 I&O- Last 24 Hours up to 6 AM 04/25/18 06:00 Intake Total 1020 ml Output Total 800 ml Balance 220 ml Laboratory Data 24H LABS Laboratory Tests 2 04/24/18 11:49: Bedside Glucose (Misc Panel) 150H 04/24/18 17:06: Bedside Glucose (Misc Panel) 218H 04/24/18 20:40: Bedside Glucose (Misc Panel) 169H 04/25/18 05:26: Immature Granulocyte % (Auto) 0.9, White Blood Count 6.8, Red Blood Count 3.02L, Hemoglobin 9.6L, Hematocrit 29.5L, Mean Corpuscular Volume 97.7H, Mean Corpuscular Hemoglobin 31.8, Mean Corpuscular Hemoglobin Concent 32.5, Red Cell Distribution Width 12.9, Platelet Count 188, Neutrophils (%) (Auto) 76.5H, Lymphocytes (%) (Auto) 11.1L, Monocytes (%) (Auto) 9.3H, Eosinophils (%) (Auto) 1.8, Basophils (%) (Auto) 0.4, Neutrophils # (Auto) 5.2, Lymphocytes # (Auto) 0.8L, Monocytes # (Auto) 0.6, Eosinophils # (Auto) 0.1, Basophils # (Auto) 0.0, Nucleated Red Blood Cells % (auto) 0.0, Anion Gap 9, Glomerular Filtration Rate 6.4L, Blood Urea Nitrogen 54H, Creatinine 8.82*H, Sodium Level 134L, Potassium Level 4.5, Chloride Level 99, Carbon Dioxide Level 26, Calcium Level 9.2 CBC/BMP Laboratory Tests 04/25/18 05:26 Red Blood Count 3.02 L, Mean Corpuscular Volume 97.7 H, Mean Corpuscular Hemoglobin 31.8, Mean Corpuscular Hemoglobin Concent 32.5, Red Cell Distribution Width 12.9, Neutrophils (%) (Auto) 76.5 H, Lymphocytes (%) (Auto) 11.1 L, Mo nocytes (%) (Auto) 9.3 H, Eosinophils (%) (Auto) 1.8, Basophils (%) (Auto) 0.4, Neutrophils # (Auto) 5.2, Lymphocytes # (Auto) 0.8 L, Monocytes # (Auto) 0.6, Eosinophils # (Auto) 0.1, Basophils # (Auto) 0.0, Calcium Level 9.2 Microbiology Microbiology 04/20/18 Stool Occult Blood (ALEXIS) - Final, Complete GME ATTESTATION GME ATTESTATION My faculty preceptor for this patient encounter was physically present during the encounter and was fully available. All aspects of the patient interview, examination, medical decision making process, and medical care plan development were reviewed and approved by the faculty preceptor. The faculty preceptor is aware and concurs with the plan as stated in the body of this note and will attest to such by his/her cosignature. DOUGLAS BHAKTA DO Apr 25, 2018 10:14
[2018-04-25] MEDS ORDERED: HEPARIN 1,000 UNITS/ML 10ML VIAL (FOR RADIOLOGY& DIALYSIS ONLY) IV ONE (11:15)
[2018-04-25] MEDS ORDERED: ISOVUE-300 61% 50ML VIAL (Q9967) As Ordered ONE (12:07)
[2018-04-25] MEDS ORDERED: LIDOCAINE 2% MDV 20 ML VIAL As Ordered ONE (12:07)
--- NOTE | 2018-04-25 15:41 | IPN ---
DATE: 04/25/2018 SUBJECTIVE: Patient was seen and examined at the bedside today morning. He is afebrile, hemodynamically stable. Today is patient's regular day of dialysis. Pain in the left foot is improving. OBJECTIVE: Vital signs: Temperature is 99 degrees Fahrenheit, blood pressure 159/72, pulse is 79, respiratory rate of 20, saturating 96% on room air. Intake and output: Urine output recorded is 800 mL yesterday. Weight in the bed scale is 81.2 kg. PHYSICAL EXAMINATION: GENERAL: Patient is awake, alert, oriented times three, sitting up in the bed. No apparent distress. HEAD AND NECK: Extraocular muscles intact. Pupils equally round and reactive to light. Mucous membranes are moist. Neck is supple. There is no jugular venous distention (JVD). CARDIOVASCULAR: S1, S2, regular rate. No edema of the lower extremities. RESPIRATORY: Chest is clear to auscultation bilaterally. Bilateral equal air entry. No rales or rhonchi. ABDOMEN: Soft. Positive bowel sounds. Nontender. No organomegaly. MUSCULOSKELETAL: Mild amount of tenderness in the left foot; otherwise normal range of movement. CENTRAL NERVOUS SYSTEM: He has expressive aphasia, otherwise able to follow commands and move his extremities. LABORATORY REVIEW: CBC showed a WBC 6.8, hemoglobin 9.6, platelets are 188. BMP showed sodium 134, potassium 4.5, chloride 99, bicarbonate 26, BUN 54, creatinine is 8.8, calcium is 9.2 CURRENT INPATIENT MEDICATIONS: Patient's medications were all reviewed by me. There is no change in the medications today as compared with yesterday. ASSESSMENT AND PLAN: 1. End-stage renal disease, on hemodialysis. Patient's regular dialysis day is today. He will be dialyzed today. I will try to remove about 2 liters of fluid as tolerated by his blood pressure. 2. Anemia secondary to end-stage renal disease. Hemoglobin is 9.6. Continue current dose of Aranesp 100 mcg with hemodialysis. 3. Left foot ischemia. He continues to be on Plavix. He is allergic to ASPIRIN. Continue once-a-day gabapentin. He is status post angiogram and stent placement. 4. Hypertension. Continue current dose of Coreg 6.25 mg by mouth twice a day. Volume status improvement with dialysis would also help improve blood pressure.
[2018-04-25] MEDS: ACETAMINOPHEN 500 MG TAB PO PRN (19:03)
[2018-04-25] MEDS: **NOTE PATIENT COMMENT** MISC XX SCH (21:00)
[2018-04-25 22:00] VITALS: BP 133/82
[2018-04-26 05:57] LABS: BASO % 0.5 % (0.0-1.0); EOS # 0.1 10^3/uL (0.0-0.50); EOS % 1.2 % (0.0-3.0); HEMATOCRIT 29.2 % (42.0-52.0); HEMOGLOBIN 9.5 g/dl (13.5-17.5); LYMPH # 0.9 10^3/uL (1.5-4.5); LYMPH % 13.3 % (24.0-44.0); MEAN CORPUSCULAR HEMOGLOBIN 31.4 pg (27.0-33.0); MEAN CORPUSCULAR HGB CONC 32.5 g/dl (32.0-36.5); MEAN CORPUSCULAR VOLUME 96.4 fl (80.0-96.0); MONO # 0.7 10^3/uL (0.0-0.8); NEUTROPHILS # 4.9 10^3/uL (1.8-7.7); NEUTROPHILS % 74.7 % (36.0-66.0); PLATELET COUNT, AUTOMATED 201 10^3/uL (150-450); RED BLOOD COUNT 3.03 10^6/uL (4.30-6.10); WHITE BLOOD COUNT 6.5 10^3/uL (4.0-10.0)
[2018-04-26 06:00] VITALS: BP 134/75
[2018-04-26 06:23] LABS: CALCIUM LEVEL 8.8 MG/DL (8.8-10.2); CREATININE FOR GFR 5.58 MG/DL (0.70-1.30); GLOMERULAR FILTRATION RATE 10.8 (>49); POTASSIUM SERUM 3.8 MEQ/L (3.5-5.1)
[2018-04-26] MEDS: NEPHRO-VIT TAB (NEPHROCAPS) PO SCH (09:23)
[2018-04-26] MEDS: ROSUVASTATIN 10 MG TAB (CRESTOR) PO SCH (09:23)
[2018-04-26] MEDS: (RENVELA) SEVELAMER **CARBONate** 800 MG TAB PO SCH ×3 (09:23→17:31)
[2018-04-26] MEDS: CALCIUM CARBONATE 500 MG CHEW U/D PO SCH ×3 (09:23→17:31)
[2018-04-26] MEDS: CLOPIDOGREL 75 MG TAB PO SCH (09:23)
[2018-04-26] MEDS: GABAPENTIN 100 MG CAP PO SCH (09:23)
[2018-04-26] MEDS: ACETAMINOPHEN 500 MG TAB PO PRN ×2 (09:23→16:14)
[2018-04-26] MEDS: HEPARIN SOD (PORCINE) 5000 UNITS/ML VIAL SQ SCH (09:24)
[2018-04-26] MEDS: LIDOCAINE 5% (LIDODERM) PATCH TD SCH (09:24)
[2018-04-26] MEDS: PANTOPRAZOLE 40MG TAB (PROTONIX) PO SCH (09:24)
[2018-04-26] MEDS: HumaLOG INSULIN (NovoLOG) PER UNIT SC SCH ×3 (09:24→17:31)
[2018-04-26 09:35] VITALS: BP 152/60
[2018-04-26] MEDS: CARVedilol 6.25 MG TAB PO SCH (09:35)
[2018-04-26] MEDS ORDERED: GABA-1171 PO (10:54)
[2018-04-26] MEDS ORDERED: CARV6.25 PO (10:54)
--- NOTE | 2018-04-26 11:18 | DS.PDOC ---
Discharge Summary General Date of Admission Apr 18, 2018 at 15:21 Date of Discharge 04/26/18 Attending Physician: CHIOMA HOLMAN MD Specialist/Consultants Involve: MARIE NAVARRO MD Specialist/Consultants Involve Dr. Blank of Vascular Surgery Discharge Summary PROCEDURES PERFORMED DURING STAY: Left leg Angioplasty ADMITTING DIAGNOSES: 1. Left lower extremity acute ischemia with ichemia ulcers 2. ESRD on HD DISCHARGE DIAGNOSES: 1. Left lower extremity acute ischemia with ischemic ulcers 2. Hypertension 3. ESRD on HD 4. Diabetic Neuropathy 5. Systolic CHF 6. Hyperlipidemia COMPLICATIONS/CHIEF COMPLAINT: Acute Occlusion Of Artery Of Lower Extremity. HISTORY OF PRESENT ILLNESS: Patient is a 68 year old male with a past medical history significant for hypertension, diabetes, hyperlipidemia, coronary artery disease s/p CABG, ESRD on HD MWF, history of nonhealing left foot diabetic ulcers secondary to ischemic foot who is s/p left popliteal artery angioplasty in 2017, who presented to the [facility] ER with complaint of left foot pain that had been going on for approximately 1 week and had continued to get worse. Patient had stated that putting his foot down was difficult because of the pain. The patients family had noticed ulcers on the left foot which had appeared to be increasing in size. In the ER, Dr. Blank of Vascular Surgery was contacted and suggested angioplasty with correction if necessary. The patient was subsequently admitted to the hospital for further management. HOSPITAL COURSE: Upon admittance to hospital floor, the patient was placed on a heparin drip until his planned angioplasty with Dr. Blank. Over the course of the patients hospital stay he did have pain. He was given pain medications however, he preferred not to take opioid medications. He was started on Gabapentin which seemed to control his pain. He continued to work with physcial therapy with improvement. His blood pressure was higher during his stay and his Carvedilol was increased to 6.25 BID. He continued with his home dialysis schedule without complications. Patient was found to be optimized from a medical standpoint and fit to transfer to acute rehabilitation. DISCHARGE MEDICATIONS: Please see below. ALLERGIES: Please see below. PHYSICAL EXAMINATION ON DISCHARGE: VITAL SIGNS: Please see below. GENERAL: Patient awake, alert, oriented. He is lying comfortably in bed. He appears in no acute distress HEENT:. Atraumatic, normocephalic. Eyes nonicteric. Trachea is midline. Mucous membranes are pink and moist CARDIOVASCULAR: Normal S1, S2, regular rate and rhythm. No clicks, rubs or murmurs appreciated. RESPIRATORY:. Clear vesicular breath sounds bilaterally. Respiratory effort. No wheezes, rhonchi or rales. ABDOMINAL:. Soft, nontender palpation throughout. Positive bowel sounds EXTREMITIES:. Left great toe dry ulceration. There is ulceration on the lateral side of the left foot. The left foot is edematous with erythema however appears improved from previous exam. Posterior tibial and dorsalis pedis pulses are nonpalpable but detectable with Doppler NEUROLOGICAL: No focal neurological deficits PSYCHOLOGICAL:. Mood and affect appear appropriate LABORATORY DATA: Please see below. IMAGING: Portable chest, single AP sitting view, 01:16 p.m.: Comparison is 01/04/2018. There are sternotomy wires, unchanged. Lung pena are clear. Cardiac size is normal. The trever, mediastinum, and skeletal structures are unremarkable and unchanged. Impression: Essentially negative portable chest. Electronically Signed by Ramesh Hill MD 04/18/2018 01:45 P DD: Ramesh Hill MD 04/18/18 1342 [id number] DS: BENJY 04/18/18 1345 PROGNOSIS: Good ACTIVITY: [As tolerated]. DIET: Renal Diet DISCHARGE PLAN: Patient is to be discharged to acute rehab for ongoing physcial therapy. He is to continue his home medications. His Carvedilol dose has been increased to 6.25 BID. He has been started on Gabapentin. He is to continue his Gabapentin for pain control. Upon discharge from ARU, the patient is to follow- up with Vascular surgery. He is to also follow-up with his PCP for management of his chronic medical conditions DISPOSITION: Good DISCHARGE INSTRUCTIONS: 1. D/C to Acute Rehab 2. Continue Carvedilol 6.25 BID 3. Continue Gabapentin 100mg 4. F/U with Vascular Surgery and PCP DISCHARGE CONDITION: [Stable]. TIME SPENT ON DISCHARGE: Greater than 40 minutes. Vital Signs/I&Os Vital Signs Date Time Temp Pulse Resp B/P (MAP) Pulse Ox O2 Delivery O2 Flow Rate FiO2 04/26/18 09:35 91 152/60 04/26/18 06:00 98.4 15 91 I&O- Last 24 Hours up to 6 AM 04/26/18 06:00 Intake Total 870 ml Output Total 2000 ml Balance -1130 ml Laboratory Data Labs 24H Laboratory Tests 2 04/25/18 13:27: Bedside Glucose (Misc Panel) 243H 04/25/18 18:39: Bedside Glucose (Misc Panel) 110 04/25/18 21:27: Bedside Glucose (Misc Panel) 182H 04/26/18 05:25: Immature Granulocyte % (Auto) 0.3, White Blood Count 6.5, Red Blood Count 3.03L, Hemoglobin 9.5L, Hematocrit 29.2L, Mean Corpuscular Volume 96.4H, Mean Corpuscular Hemoglobin 31.4, Mean Corpuscular Hemoglobin Concent 32.5, Red Cell Distribution Width 13.1, Platelet Count 201, Neutrophils (%) (Auto) 74.7H, Lymphocytes (%) (Auto) 13.3L, Monocytes (%) (Auto) 10.0H, Eosinophils (%) (Auto) 1.2, Basophils (%) (Auto) 0.5, Neutrophils # (Auto) 4.9, Lymphocytes # (Auto) 0.9L, Monocytes # (Auto) 0.7, Eosinophils # (Auto) 0.1, Basophils # (Auto) 0.0, Nucleated Red Blood Cells % (auto) 0.0, Anion Gap 8, Glomerular Filtration Rate 10.8L, Blood Urea Nitrogen 27H, Creatinine 5.58H, Sodium Level 136, Potassium Level 3.8, Chloride Level 99, Carbon Dioxide Level 29, Calcium Level 8.8 CBC/BMP Laboratory Tests 04/26/18 05:25 Red Blood Count 3.03 L, Mean Corpuscular Volume 96.4 H, Mean Corpuscular Hemoglobin 31.4, Mean Corpuscular Hemoglobin Concent 32.5, Red Cell Distribution Width 13.1, Neutrophils (%) (Auto) 74.7 H, Lymphocytes (%) (Auto) 13.3 L, Monocytes (%) (Auto) 10.0 H, Eosinophils (%) (Auto) 1.2, Basophils (%) (Auto) 0.5, Neutrophils # (Auto) 4.9, Lymphocytes # (Auto) 0.9 L, Monocytes # (Auto) 0.7, Eosinophils # (Auto) 0.1, Basophils # (Auto) 0.0, Calcium Level 8.8 FSBS Laboratory Tests Test 04/25/18 13:27 04/25/18 18:39 04/25/18 21:27 Range/Units Bedside Glucose (Misc Panel) 243 110 182 80-115 MG/DL Microbiology Microbiology 04/20/18 Stool Occult Blood (ALEXIS) - Final, Complete Discharge Medications Scheduled (Radha-Haja) 1 Tab Tab, 1 TAB PO DAILY, (Reported) Calcitriol (Calcitriol) 0.25 Mcg Cap, 0.25 MCG PO 3XW, (Reported) RECEIVES AT DIALYSIS ON MON, MON, MON Calcium Carbonate (Tums Ultra 1000) 1,000 Mg Chw, 2,000 MG PO WM, (Reported) Carvedilol (Carvedilol) 6.25 Mg Tab, 6.25 MG PO BID Clopidogrel Bisulfate (Clopidogrel) 75 Mg Tab, 75 MG PO DAILY, (Reported) Ergocalciferol (Vitamin D) 50,000 Unit Cap, 50,000 UNIT PO 1XWK, (Reported) TAKES ON WEDNESDAYS Gabapentin (Gabapentin) 100 Mg Cap, 100 MG PO DAILY Insulin Human Lispro (Humalog) 1 Units/0.01 Ml Inj, 1 DOSE SC ACHS, (Reported) PER SLIDING SCALE Pantoprazole Sodium Sesquihydr (Protonix) 40 Mg Tab, 40 MG PO DAILY, (Reported) Rosuvastatin Calcium (Crestor) 20 Mg Tab, 20 MG PO DAILY, (Reported) Sevelamer Carbonate (Renvela) 800 Mg Tab, 1,600 MG PO WM, (Reported) Scheduled PRN Acetaminophen (Tylenol Extra Strength) 500 Mg Tab, 1,000 MG PO QID PRN for PAIN, (Reported) Cetirizine HCl (Zyrtec Allergy) 10 Mg Tab, 10 MG PO DAILY PRN for ALLERGIES, (Reported) Colchicine (Colcrys) 0.6 Mg Tab, 0.6 MG PO DAILY PRN for GOUT, (Reported) Ondansetron (Ondansetron Odt) 4 Mg Tab, 4 MG PO Q6H PRN for NAUSEA OR VOMITING, (Reported) Allergies Coded Allergies: Aspirin (Verified Allergy, Severe, CLOSES AIRWAY, 05/07/12) GME ATTESTATION GME ATTESTATION My faculty preceptor for this patient encounter was physically present during the encounter and was fully available. All aspects of the patient interview, examination, medical decision making process, and medical care plan development were reviewed and approved by the faculty preceptor. The faculty preceptor is aware and concurs with the plan as stated in the body of this note and will attest to such by his/her cosignature. DOUGLAS BHAKTA DO Apr 26, 2018 11:18
--- NOTE | 2018-04-26 13:49 | IPN ---
DATE OF SERVICE: 04/26/2018 SUBJECTIVE: Patient was seen and examined at the bedside today, morning. He is afebrile, hemodynamically stable. He was dialyzed yesterday; 2 liters of fluid was removed. He reports the pain in the left foot is better optimized. He is able to walk from his bed to restroom, and as reported by his today, the plan is to discharge him to subacute rehab today. OBJECTIVE: VITAL SIGNS: Temperature is 98.4 degrees Fahrenheit, blood pressure 134/75, pulse is 83, respiratory rate of 15, saturating 91% on room air. INTAKE AND OUTPUT: There is no urine output recorded. Ultrafiltration with hemodialysis was 2 liters. Weight in the bed scale is 79.4 kg. PHYSICAL EXAMINATION: GENERAL: Patient is awake, alert, oriented times three, laying in the bed, in no apparent distress. HEAD AND NECK EXAM: Extraocular muscles intact. Pupils equally round and reactive to light. Mucous membranes are moist. Neck is supple. There is no jugular venous distention (JVD). CARDIOVASCULAR: S1, S2, regular rate. No edema of the lower extremities. RESPIRATORY: Chest is clear to auscultation bilaterally. Bilateral equal air entry. No rales or rhonchi. ABDOMEN: Is soft, positive bowel sounds, nontender. No organomegaly. MUSCULOSKELETAL: Patient has a Lidoderm patch on the left foot. Otherwise, normal range of movement of the extremities. CENTRAL NERVOUS SYSTEM (STABBER): He has expressive aphasia. Otherwise, he follows commands and able to communicate with a few words. LABORATORY REVIEW: CBC showed a WBC of 6.5, hemoglobin 9.6, platelets are 201. BMP showed sodium 136, potassium 3.8, chloride 99, bicarbonate 29, BUN 27, creatinine is 5.5. CURRENT INPATIENT MEDICATIONS: Patient's medications were all reviewed by me. There is no change in the medications today as compared with yesterday. ASSESSMENT AND PLAN: 1. End-stage renal disease, on hemodialysis. Patient's regular days for dialysis is Monday, Monday, Monday. He was dialyzed yesterday. Next hemodialysis session will be tomorrow. 2. Anemia secondary to end-stage renal disease. He continues to be on Aranesp. Rest of the anemia management will be done as outpatient once he is discharged. 3. Left foot ischemia. Continues current dose of Plavix. Continue gabapentin. He will followup with vascular as outpatient. 4. Hypertension. Blood pressure is optimized. Continue current dose of Coreg 6.25 mg by mouth twice a day. DISPOSITION: Patient is stable and optimized from nephrology standpoint to be discharged from the hospital.
[2018-04-26 14:00] VITALS: BP 167/74
--- NOTE | 2018-05-09 09:06 | REPIR ---
DATE OF PROCEDURE: 04/19/2018 ATTENDING SURGEON: Dr. Maddy Blank BOILER OR ENGINE OPERATOR: Mehrdad Lester and Savanah Herrera PREOPERATIVE DIAGNOSES: Left foot gangrene with ulceration. End-stage renal disease. POSTOPERATIVE DIAGNOSES: Left foot gangrene with ulceration. End-stage renal disease. PROCEDURE: Aortogram. Iliofemoral angiogram. Selective left common femoral artery catheter placement with left lower extremity angiogram. Selective left superficial femoral artery catheter placement with angiogram. Selective left popliteal artery catheter placement with angiogram. Selective left peroneal artery catheter placement with angiogram. Left superficial femoral and popliteal artery angioplasty and stent with a 7 x 120 ABY drug-eluting stent postdilated with a 6 x 100 balloon. MYNX closure of the right common femoral arteriotomy. INDICATION: Patient is a 68-year-old male with end-stage renal disease who has previously undergone angioplasty of the right superficial femoral and popliteal artery secondary to occlusion and nonhealing ulcers in the left foot. Patient will now undergo repeat angiography as his perfusion has worsened and he has worsening of the ulcers in the left foot. Risks, benefits and alternative treatment options have been discussed with the patient. ANESTHESIA: Local with 10 mL of 2% lidocaine. FLUORO TIME: 7.2 minutes. CONTRAST: 42.5 mL of ISOVUE-300. HEPARIN: 7000 units. COMPLICATIONS: None. DRAINS: None. IMPLANTS: Left superficial femoral and popliteal artery angioplasty and stent with a 7 x 120 ABY drug-eluting stent postdilated with a 6 x 100 balloon. PROCEDURE: Patient was taken to the angiography suite, placed supine on the angiography room table and then prepped and draped in a standard surgical fashion. The right common femoral artery was cannulated with a micropuncture needle, a catheter placed in the aorta and aortogram was performed. Catheter pulled down level with the bifurcation of the iliac arteries and an iliofemoral angiogram was performed. Catheter directed over the bifurcation of the iliac arteries, placed in the left common femoral artery and a left lower extremity angiogram was performed. Catheter was advanced into the left superficial femoral artery and an angiogram performed. Catheter advanced in the left popliteal artery and an angiogram performed. Catheter advanced into the peroneal artery and a left lower extremity angiogram was performed. The left superficial femoral and popliteal artery were then angioplastied and stented with a 7 x 120 ABY drug-eluting stent, postdilated with a 6 x 100 balloon. Completion angiogram showed the left superficial femoral and popliteal artery be widely patent. Catheters and wires were removed. A MYNX closure was used close the arteriotomy in the right common femoral artery with an additional 10 minutes of adjunctive pressure applied for hemostasis. Dressings were then applied. The patient tolerated the procedure well. All instrument, sponge, and needle counts were correct at the end of the case. There were no complications. Dr. Blank was present for and directed the entire case. The patient was transferred to the holding and subsequently to the floor in stable condition.
[2018-05-09] MEDS ORDERED: CRES10TA32 PO (09:54)
--- NOTE | 2018-05-09 11:43 | REPIR ---
DATE OF PROCEDURE: 04/25/2018 PREOPERATIVE DIAGNOSES: End-stage renal disease, dysfunction left brachiocephalic arteriovenous fistula. POSTOPERATIVE DIAGNOSES: End-stage renal disease, dysfunction left brachiocephalic arteriovenous fistula. PROCEDURE: Left brachiocephalic arteriovenous fistulogram, retrograde left brachial artery angiogram. SURGEON: Dr. Maddy Blank. HATCHERY EMPLOYEE: Marcia Gonzalez and Savanah Herrera. PROCEDURE: Left brachiocephalic arteriovenous cystogram retrograde break left brachial artery angiogram. ANESTHESIA: Local with 1 mL of 2% lidocaine. FLUORO TIME: 0.1 minutes. CONTRAST: 2 mL HEPARIN: None. COMPLICATIONS: None. DRAINS: None. SPECIMENS: None IMPLANT: None. INDICATION: The patient is a 68-year-old male with a dysfunctional left brachiocephalic arteriovenous fistula. The patient undergo a fistulogram with possible angioplasty stent and/or atherectomy. Risks, benefits and alternative options were discussed with the patient. DESCRIPTION OF PROCEDURE: The patient was taken to the angiography suite, placed supine. on the angiography room table. The left brachiocephalic arteriovenous fistulas cannulated and a fistulogram, retrograde brachial angiogram were performed showing no intervention was required. The sheath was removed and manual compression applied at the puncture site for hemostasis. Dressings were applied. All instruments, sponge and needle counts were correct at the end the case. There were no complications. Dr. Blank was present for and directed the entire case. The patient was transferred holding and subsequent to the floor in stable condition
== END 2018-04-26 20:57 | DRG 252 ==
LOC: M ED 10:24 → M ED INP 15:21 → M MSPAV 19:44 → M PM&R 04-26 20:10 → M MSPAV 04-26 20:45
PROVIDERS: ADMIT Internal Medicine; ATTEND Internal Medicine
PROC: 047 Lower Arteries, Dilation (ICD-10-PCS; principal; 2018-04-19)
PROC: 047 Lower Arteries, Dilation (ICD-10-PCS; 2018-04-19)
PROC: B400YZZ Plain Radiography of Abdominal Aorta using Other Contrast (ICD-10-PCS; 2018-04-19)
PROC: B30JYZZ Plain Radiography of Left Upper Extremity Arteries using Other Contrast (ICD-10-PCS; 2018-04-25)
PROC: 5A1D70Z Performance of Urinary Filtration, Intermittent, Less than 6 Hours Per Day (ICD-10-PCS; 2018-04-25)
DX: T82.856A Stenosis of peripheral vascular stent, initial encounter (principal); N18.6 End stage renal disease; L97.429 Non-pressure chronic ulcer of left heel and midfoot with unspecified severity; I13.2 Hypertensive heart and chronic kidney disease with heart failure and with stage 5 chronic kidney disease, or end stage renal disease; I50.22 Chronic systolic (congestive) heart failure; N25.81 Secondary hyperparathyroidism of renal origin; L97.529 Non-pressure chronic ulcer of other part of left foot with unspecified severity; N40.0 Benign prostatic hyperplasia without lower urinary tract symptoms; E11.51 Type 2 diabetes mellitus with diabetic peripheral angiopathy without gangrene; E11.621 Type 2 diabetes mellitus with foot ulcer; E78.5 Hyperlipidemia, unspecified; M10.9 Gout, unspecified; H91.93 Unspecified hearing loss, bilateral; D63.1 Anemia in chronic kidney disease; E11.22 Type 2 diabetes mellitus with diabetic chronic kidney disease; I69.320 Aphasia following cerebral infarction; I25.10 Atherosclerotic heart disease of native coronary artery without angina pectoris; Z99.2 Dependence on renal dialysis; Z95.1 Presence of aortocoronary bypass graft; Z88.6 Allergy status to analgesic agent; Z79.02 Long term (current) use of antithrombotics/antiplatelets; Z79.4 Long term (current) use of insulin; Z79.899 Other long term (current) drug therapy; Y83.1 Surgical operation with implant of artificial internal device as the cause of abnormal reaction of the patient, or of later complication, without mention of misadventure at the time of the procedure

== ENCOUNTER 2018-04-26 15:01 | Inpatient (IN) | payer MEDICARE, OTHER ==
[~2018-04-26] VITALS: Ht 172.7 cm; Wt 80.5 kg
[~2018-04-26 15:01] MED LIST changes: -/HCTZ25TA OR; -/NEPHROTA PO; -/ONDA4TA PO; +CARV6.25 PO; +COLC1TAB14 PO; +CRES10TA PO; -CRES10TA32 PO; +CRES20TA2 PO; +GABA-1171 PO; +HEPA1INJ23 SC; -HEPA50VL SC; +HYDR-3644 OR; +NEPH1TAB8 PO; -NORC1TAB4 PO; +NORC1TAB7 PO; +ONDA-1 PO; -SENN1TAB2 PO; +SENN1TAB40 PO; -VANC75VL IV; +[UNRECOGNIZED DRUG - CODE] IV
[2018-04-26] MEDS ORDERED: oxyCODONE 5MG TAB PO PRN (18:45)
[2018-04-26] MEDS ORDERED: GLUCOSE 4 GM CHEW TABLET PO PRN (18:45)
[2018-04-26] MEDS ORDERED: ONDANSETRON 4 MG TAB (S0181) PO PRN (18:45)
[2018-04-26] MEDS ORDERED: DEXTROSE 50% 50 ML SYRINGE IV PRN (18:45)
[2018-04-26] MEDS ORDERED: GLUCAGON FOR INJ 1 MG VIAL (J1610) SC PRN (18:45)
[2018-04-26 20:10] VITALS: BP 162/72
[2018-04-26] MEDS: **NOTE PATIENT COMMENT** MISC XX SCH (21:00)
[2018-04-26] MEDS: HumaLOG INSULIN (NovoLOG) PER UNIT SC SCH (21:00)
[2018-04-26] MEDS: HEPARIN SOD (PORCINE) 5000 UNITS/ML VIAL SQ SCH (23:00)
[2018-04-26] MEDS: CARVedilol 6.25 MG TAB PO SCH (23:02)
[2018-04-26] MEDS: ACETAMINOPHEN 500 MG TAB PO PRN (23:03)
[2018-04-27 06:00] VITALS: BP 184/88
[2018-04-27 07:24] LABS: ALBUMIN 2.4 GM/DL (3.2-5.2); BILIRUBIN,TOTAL 0.2 MG/DL (0.2-1.0); CALCIUM LEVEL 8.7 MG/DL (8.8-10.2); CREATININE FOR GFR 7.59 MG/DL (0.70-1.30); GLOMERULAR FILTRATION RATE 7.6 (>49); TOTAL PROTEIN 5.9 GM/DL (6.4-8.2)
[2018-04-27] MEDS: VITAMIN B COMPLEX/VIT C CAP PO SCH (08:35)
[2018-04-27] MEDS: HumaLOG INSULIN (NovoLOG) PER UNIT SC SCH ×4 (08:35→21:00)
[2018-04-27] MEDS: (RENVELA) SEVELAMER **CARBONate** 800 MG TAB PO SCH ×3 (08:35→20:15)
[2018-04-27] MEDS: ROSUVASTATIN 10 MG TAB (CRESTOR) PO SCH (08:35)
[2018-04-27] MEDS: HEPARIN SOD (PORCINE) 5000 UNITS/ML VIAL SQ SCH ×2 (08:36→20:15)
[2018-04-27] MEDS: PANTOPRAZOLE 40MG TAB (PROTONIX) PO SCH (08:36)
[2018-04-27] MEDS: ACETAMINOPHEN 500 MG TAB PO PRN ×2 (08:36→17:25)
[2018-04-27] MEDS: CETIRIZINE (ZyrTEC) 10 MG TAB PO SCH (08:36)
[2018-04-27] MEDS: GABAPENTIN 100 MG CAP PO SCH (08:36)
[2018-04-27] MEDS: LIDOCAINE 5% (LIDODERM) PATCH TD SCH (08:36)
[2018-04-27] MEDS: CLOPIDOGREL 75 MG TAB PO SCH (08:37)
[2018-04-27] MEDS: CARVedilol 6.25 MG TAB PO SCH ×2 (08:39→20:18)
--- NOTE | 2018-04-27 10:21 | HPEPDOC ---
Supply Chain Systems Manager Note DATE OF ADMISSION: Apr 26, 2018 at 20:51 SOURCE OF ADMISSION INFORMATION: [facility] records and patient CHIEF COMPLAINT: Left lower extremity arterial occlusion HISTORY OF PRESENT ILLNESS: 68M pmh ESRD on HID, HTN, DM, CAD s/p CABG, chronic systolic CHF with EF 30%, multiple strokes, prior angioplasty of his left popliteal artery and left superficial femoral artery in November 2017 developed worsening pain in his limb and presented to [facility] ED on 04/18/18 with difficulty walking and found to have ischemic ulcers. He was evaluated by vascular surgery who placed him on a heparin drip for a suspected occlusion of his recent stent. He was made NPO and underwent angioplasty and stenting with improvement in his overall pain. He was followed by nephrology and received dialysis during his hospital stay in addition to aranesp for his anemia of chronic disease. His pain was managed and he was evaluated by therapy, found to have deficits in gait and ADLs and deemed medically appropriate for discharge to ARU on 04/26/18. REVIEW OF SYSTEMS: The following is a completed review of systems and has been reviewed. Review of systems otherwise unremarkable. PAIN: Patient self reports LLE pain EYES: Negative for recent vision changes EARS, NOSE, & THROAT:denies throat/ear pain, no dysphagia CARDIOVASCULAR: denies chest pain or palpitations PULMONARY: Negative. Denies shortness of breath GASTROINTESTINAL: Negative for diarrhea/constipation GENITOURINARY: Negative for dyrsuria MUSCULOSKELETAL: LLE weakness HEMATOLOGICAL: + anemia SKIN: LLE incisions PSYCHIATRIC: Unremarkable All other review of systems found to be negative. PAST MEDICAL HISTORY: per HPI PAST SURGICAL HISTORY: per HPI ALLERGIES: Please see below. MEDICATIONS: Please see below. SOCIAL HISTORY: LIves with , no smoking/ETOH/drugs DIET: Renal PHYSICAL EXAMINATION: VITAL SIGNS: Please see below. GENERAL: Pleasant and cooperative. No acute distress. HEENT: PERRL. Extraocular movements intact. Clear conjunctiva CARDIOVASCULAR: Regular rate and rhythm. No murmurs, rubs, or gallops LUNGS: Clear to auscultation bilaterally. No wheezes. No rhonchi ABDOMEN: Soft, nontender, nondistended. Positive bowel sounds. Normal active bowel sounds NEUROLOGICAL: Alert and oriented times three. Cranial nerves II through XII grossly intact. Sensation grossly intact except diminished in bilateral feet EXTREMITIES: 5\5 strength bilateral upper extremities. 5\5 strength bilat lower extremity. SKIN: left D1 and lateral forefoot ulcers IMAGING: Imaging documentation personally reviewed by record FUNCTIONAL STATUS: Premorbid: Independent with all activities of daily life as well as mobility until March when began to use RW On Admission: Min-Mod assist for functional trasnfers, able to ambulate 10 feet Min assist with RW x 10F PWB GOALS: Mod-I with RW for ambulation, stairs, bathing, dressing, grooming, balance training, medical optimization, family training, assess for DME needs. ASSESSMENT:68-year-old M with past medical history of PVD, ESRD, disatolic CHF who presents status post left lower extremity ischemia with angioplasty PLAN: 1. Rehab: PT/OT, maintain PWB 2. Neuro: pmh multiple strokes, stable- c/u statin therapy and BP meds 3. CArdio: pmh chronic systolic CARLYN with EF 30%, CAD s/p CABG- euvolemic, monitor for fluid overload- on dialysus, medicine consulted -PVD with angioplasty of his left popliteal artery and left superficial femoral artery in November 2017, s/p angioplasty 04/18/18- will consult Dr. Blank 4. Resp: stable, encourage incentive spirometry 5. Endo: DM c/u insulin coverage 6. Renal: ESRD-renal consulted, HD M/W/F, Aranesp per renal for anemia of chronic disease 7. Rheum: pmh gout- colchicine prn 8. Pain: Gabapentin, oxycodone, tylenol 9. DVT ppx: heparin 10. GI ppx: protonix 11. SKin: cover left foots wounds, appear dry, monitor for infection 12. Dispo: TBD POST ADMISSION PHYSICIAN EVALUATION: Medical and functional status: Description of medical status, medical assessm ent: As above. Rehabilitation diagnosis and current and prior cold morbid medical conditions as above. Risk of complications and plans to mitigate them as above. Description of functional status current status is as above. Prior status as above. Status compared to preadmission: There are no clinically significant differences between the patient's current status and the information described on the preadmission screening document. Treatment plan anticipated: Treatment plan is as described above. Required disciplines including physical therapy, occupational therapy, others as noted above Intensity of services: 3 hours a day, 6 days a week. Special considerations: There are no specific special or safety considerations that would likely preclude immediate implementation of an intensive rehabi litation program or subsequently influence the plan of care ATTESTATION: Considering all the information above, it is my best judgment that this patient requires intensive rehabilitation therapy as described above and an inpatient hospital environment due to the complexity of nursing, medical, and rehabilitation needs required by the patient. Furthermore, this patient can reasonably be expected to participate in an benefit from an inpatient rehabilitation stay with an interdisciplinary team approach to the delivery of rehabilitation care under the direction and supervision of siria flanagan. PROGNOSIS: Excellent ESTIMATED LENGTH OF STAY:10-14 days. PROJECTED DISCHARGE DESTINATION: Home with family support and any durable medical equipment required to increase functional safety and mobility. TIME SPENT COUNSELING AND COORDINATING INITIAL CARE: Greater than 70 minutes. Vital Signs Vital Sign - Last 24 Hours 04/26/18 04/26/18 04/27/18 04/27/18 20:10 23:02 06:00 08:39 Temp 98.0 97.8 Pulse 77 78 84 84 Resp 18 18 B/P (MAP) 162/72 (102) 170/70 184/88 (120) 184/88 Pulse Ox 96 96 Laboratory Data CBC/BMP Laboratory Tests 04/27/18 06:28 Calcium Level 8.7 L, Aspartate Amino Transf (AST/SGOT) 20, Alanine Aminotransferase (ALT/SGPT) 27, Alkaline Phosphatase 168 H, Total Bilirubin 0.2, Total Protein 5.9 L, Albumin 2.4 L Labs 24H Laboratory Tests 2 04/26/18 20:47: Bedside Glucose (Misc Panel) 204H 04/27/18 06:28: Anion Gap 10, Glomerular Filtration Rate 7.6L, Blood Urea Nitrogen 40H, Creatinine 7.59H, Sodium Level 138, Potassium Level 4.0, Chloride Level 101, Carbon Dioxide Level 27, Calcium Level 8.7L, Aspartate Amino Transf (AST/SGOT) 20, Alanine Aminotransferase (ALT/SGPT) 27, Alkaline Phosphatase 168H, Total Bilirubin 0.2, Total Protein 5.9L, Albumin 2.4L, Albumin/Globulin Ratio 0.69L 04/27/18 07:03: Bedside Glucose (Misc Panel) 166H FSBS Laboratory Tests Test 04/26/18 20:47 04/27/18 07:03 Range/Units Bedside Glucose (Misc Panel) 204 166 80-115 MG/DL Home Medications Scheduled (Radha-Haja) 1 Tab Tab, 1 TAB PO DAILY, (Reported) Calcitriol (Calcitriol) 0.25 Mcg Cap, 0.25 MCG PO 3XW, (Reported) RECEIVES AT DIALYSIS ON MON, MON, MON Calcium Carbonate (Tums Ultra 1000) 1,000 Mg Chw, 2,000 MG PO WM, (Reported) Carvedilol (Carvedilol) 6.25 Mg Tab, 6.25 MG PO BID Clopidogrel Bisulfate (Clopidogrel) 75 Mg Tab, 75 MG PO DAILY, (Reported) Ergocalciferol (Vitamin D) 50,000 Unit Cap, 50,000 UNIT PO 1XWK, (Reported) TAKES ON WEDNESDAYS Gabapentin (Gabapentin) 100 Mg Cap, 100 MG PO DAILY Insulin Human Lispro (Humalog) 1 Units/0.01 Ml Inj, 1 DOSE SC ACHS, (Reported) PER SLIDING SCALE Pantoprazole Sodium Sesquihydr (Protonix) 40 Mg Tab, 40 MG PO DAILY, (Reported) Rosuvastatin Calcium (Crestor) 20 Mg Tab, 20 MG PO DAILY, (Reported) Sevelamer Carbonate (Renvela) 800 Mg Tab, 1,600 MG PO WM, (Reported) Scheduled PRN Acetaminophen (Tylenol Extra Strength) 500 Mg Tab, 1,000 MG PO QID PRN for PAIN, (Reported) Cetirizine HCl (Zyrtec Allergy) 10 Mg Tab, 10 MG PO DAILY PRN for ALLERGIES, (Reported) Colchicine (Colcrys) 0.6 Mg Tab, 0.6 MG PO DAILY PRN for GOUT, (Reported) Ondansetron (Ondansetron Odt) 4 Mg Tab, 4 MG PO Q6H PRN for NAUSEA OR VOMITING, (Reported) Allergies Coded Allergies: Aspirin (Verified Allergy, Severe, CLOSES AIRWAY, 05/07/12) SHANNAN OLMOS MD Apr 27, 2018 10:21
--- NOTE | 2018-04-27 11:58 | IPNPDOC ---
Date Seen The patient was seen on 04/27/18. Progress Note HPI: 68 year old male with history of nonhealing left foot diabetic ulcers secondary to ischemic foot who is s/p left popliteal artery angioplasty in 2017, developed worsening pain in his limb and presented to [facility] ED on 04/18/18 , now S/P angioplasty and stent placement with Dr. Blank of Vascular Surgery. Transferred to the care of ARU, Dr Rebollar, 04/26/18. He continued with his home dialysis schedule without complications. No acute medical complaints today. Denies any fevers, chills, weakness, fatigue, Headache, Chest Pain, Shortness of breath, cough, palpitations, abdominal pain, N/V/D or changes in bowel or bladder habits. PMHx: HTN DM HLD PVD/PAD CAD/CABG ESRD HD MWF h/o nonhealing left diabetic foot ulcers s/p left popliteal artery angioplasty in 2017 PE: GEN: 68yoM, appears stated age. No acute distress. Alert and oriented x 3. Pleasant, interactive. HEENT: Normocephalic, atraumatic. Sclera are nonicteric. Conjunctiva without injection. Moist mucous membranes. CHEST: Regular rate and rhythm, +S1, +S2 LUNGS: Clear to auscultation bilaterally. No wheezes, rales, or rhonchi. Breathing appears symmetric and easy. Patient is speaking in full sentences. ABD: Round, soft, non-tender, non-distended. +Bowel sounds throughout. No rebound or guarding. EXT: No lower extremity edema appreciated. SKIN: [place], dry, warm. CNo rashes. NEURO: Alert and oriented x 3. No focal deficits appreciated. A&P: 68 year old male with history of nonhealing left foot diabetic ulcers secondary to ischemic foot who is s/p left popliteal artery angioplasty in 2017, developed worsening pain in his limb and presented to [facility] ED on 04/18/18 , now S/P angioplasty and stent placement with Dr. Blank of Vascular Surgery. Transferred to the care of ARU, Dr Rebollar, 04/26/18. He continued with his home dialysis schedule without complications. 1. Left lower extremity acute ischemia with ischemic ulcers S/P angioplasty and stent placement with Dr. Blank of Vascular Surgery. Continue Mgmt as per Vascular surgery. Patient is currently on Plavix PT and DP pulses detected with doppler. Mgmt as per Dr Smooth SANDOVAL. PT/OT as per Dr Smooth SANDOVAL. Pain control as per Dr Smooth SANDOVAL. Bowel care as per Dr Smooth SANDOVAL. DVT prophylaxis as per Dr Smooth SANDOVAL. SQ Heparin. Disposition as per Dr Smooth SANDOVAL. 2. Hypertension Coreg 6.25 BID with hold parameters. 3. ESRD on HD HD as per Nephrology. 4. IDDM Levimir SSI 5. Systolic CHF Currently on HD 6. Hyperlipidemia Continue statin 7. Hx of Gout Colchicine prn VS, I&O, 24H, Fishbone Vital Signs/I&O Vital Signs Date Time Temp Pulse Resp B/P (MAP) Pulse Ox O2 Delivery O2 Flow Rate FiO2 04/27/18 08:39 84 184/88 04/27/18 06:00 97.8 18 96 I&O- Last 24 Hours up to 6 AM 04/27/18 06:00 Intake Total 120 ml Balance 120 ml Laboratory Data 24H LABS Laboratory Tests 2 04/26/18 20:47: Bedside Glucose (Misc Panel) 204H 04/27/18 06:28: Anion Gap 10, Glomerular Filtration Rate 7.6L, Blood Urea Nitrogen 40H, Cre atinine 7.59H, Sodium Level 138, Potassium Level 4.0, Chloride Level 101, Carbon Dioxide Level 27, Calcium Level 8.7L, Aspartate Amino Transf (AST/SGOT) 20, Alanine Aminotransferase (ALT/SGPT) 27, Alkaline Phosphatase 168H, Total Bilirubin 0.2, Total Protein 5.9L, Albumin 2.4L, Albumin/Globulin Ratio 0.69L 04/27/18 07:03: Bedside Glucose (Misc Panel) 166H CBC/BMP Laboratory Tests 04/27/18 06:28 Calcium Level 8.7 L, Aspartate Amino Transf (AST/SGOT) 20, Alanine Aminotransferase (ALT/SGPT) 27, Alkaline Phosphatase 168 H, Total Bilirubin 0.2, Total Protein 5.9 L, Albumin 2.4 L Mikala Saunders Apr 27, 2018 11:58
[2018-04-27 14:00] VITALS: BP 147/66
--- NOTE | 2018-04-27 19:48 | IPN ---
DATE: 04/27/2018 SUBJECTIVE: The patient was seen and examined at the bedside today, morning, at the rehabilitation (rehab) unit. He was getting ready to get his physical therapy when I saw him today - morning. He is afebrile, hemodynamically stable. Pain in the left foot is better optimized. Today is patient's regular day of dialysis. OBJECTIVE: VITAL SIGNS: Temperature is 97.8 degrees Fahrenheit, blood pressure 184/88, pulse is 84, respiratory rate of 18, saturating 96% on room air. INTAKE/OUTPUT: There is no urine output recorded. Weight on the bed scale is 79.4 kg. PHYSICAL EXAMINATION: GENERAL: The patient is awake, alert, oriented times three, sitting up in the bed in no apparent distress. HEAD AND NECK EXAM: Extraocular muscles intact. Pupils equally round and reactive to light. Mucous membranes are moist. Neck is supple. There is no jugular venous distention (JVD). CARDIOVASCULAR: S1, S2, regular rate. No edema of the bilateral lower extremities. RESPIRATORY: Chest is clear to auscultation bilaterally. Bilateral equal air entry. No rales or rhonchi. ABDOMEN: Abdomen is soft, positive bowel sounds, nontender. No organomegaly. MUSCULOSKELETAL: Patient has a lidocaine patch on the left foot. Left foot is moderately tender to palpation. CENTRAL NERVOUS SYSTEM: Patient has expressive aphasia, otherwise he is able to move his extremities. LAB REVIEW: CBC is not available. BMP today showed sodium 138, potassium is 4, chloride 101, bicarbonate 27, BUN 40, creatinine is 7.5, calcium 8.7, albumin 2.4. CURRENT INPATIENT MEDICATIONS: The patient's medications were all reviewed by me. There is no change in his medications today as compared with yesterday. ASSESSMENT AND PLAN: 1. End-stage renal disease, on hemodialysis. Patient's regular dialysis days are Monday, Monday, Monday. He will be dialyzed today according to his regular schedule. Ultrafiltration goal will be around two liters. 2. Left foot ischemia. Patient is status post angiogram and stent placement. Continue Plavix and statin. Symptoms are getting better. He is getting the physical therapy. 3. Hypertension with end-stage renal disease. Continue current dose of Coreg. Volume optimization with dialysis today would also help improve blood pressure. 4. Chronic kidney disease mineral bone disease. Continue current dose of Renvela 1600 mg by mouth with meals.
[2018-04-27] MEDS: **NOTE PATIENT COMMENT** MISC XX SCH (20:18)
[2018-04-27 21:00] VITALS: BP 140/60
[2018-04-28] MEDS: ACETAMINOPHEN 500 MG TAB PO PRN ×2 (00:52→09:14)
[2018-04-28 06:00] VITALS: BP 168/60
[2018-04-28] MEDS: HumaLOG INSULIN (NovoLOG) PER UNIT SC SCH ×4 (08:14→21:00)
[2018-04-28] MEDS: ROSUVASTATIN 10 MG TAB (CRESTOR) PO SCH (08:15)
[2018-04-28] MEDS: CARVedilol 6.25 MG TAB PO SCH ×2 (08:15→20:18)
[2018-04-28] MEDS: (RENVELA) SEVELAMER **CARBONate** 800 MG TAB PO SCH ×3 (08:15→17:29)
[2018-04-28] MEDS: LIDOCAINE 5% (LIDODERM) PATCH TD SCH (08:15)
[2018-04-28] MEDS: CLOPIDOGREL 75 MG TAB PO SCH (08:15)
[2018-04-28] MEDS: PANTOPRAZOLE 40MG TAB (PROTONIX) PO SCH (08:15)
[2018-04-28] MEDS: VITAMIN B COMPLEX/VIT C CAP PO SCH (08:15)
[2018-04-28] MEDS: HEPARIN SOD (PORCINE) 5000 UNITS/ML VIAL SQ SCH ×2 (08:15→20:19)
[2018-04-28] MEDS: CETIRIZINE (ZyrTEC) 10 MG TAB PO SCH (08:15)
[2018-04-28] MEDS: GABAPENTIN 100 MG CAP PO SCH (08:15)
[2018-04-28 14:00] VITALS: BP 158/68
[2018-04-28 20:00] VITALS: BP 146/66
[2018-04-28] MEDS: **NOTE PATIENT COMMENT** MISC XX SCH (20:19)
[2018-04-29] MEDS: ACETAMINOPHEN 500 MG TAB PO PRN (01:29)
[2018-04-29 06:00] VITALS: BP 163/80
[2018-04-29 06:31] LABS: HEMATOCRIT 30.6 % (42.0-52.0); HEMOGLOBIN 9.7 g/dl (13.5-17.5); MEAN CORPUSCULAR HEMOGLOBIN 30.9 pg (27.0-33.0); MEAN CORPUSCULAR HGB CONC 31.7 g/dl (32.0-36.5); MEAN CORPUSCULAR VOLUME 97.5 fl (80.0-96.0); PLATELET COUNT, AUTOMATED 252 10^3/uL (150-450); RED BLOOD COUNT 3.14 10^6/uL (4.30-6.10); WHITE BLOOD COUNT 7.4 10^3/uL (4.0-10.0)
[2018-04-29] MEDS: HEPARIN SOD (PORCINE) 5000 UNITS/ML VIAL SQ SCH ×2 (08:43→20:12)
[2018-04-29] MEDS: CETIRIZINE (ZyrTEC) 10 MG TAB PO SCH (08:43)
[2018-04-29] MEDS: HumaLOG INSULIN (NovoLOG) PER UNIT SC SCH ×4 (08:43→20:12)
[2018-04-29] MEDS: (RENVELA) SEVELAMER **CARBONate** 800 MG TAB PO SCH ×3 (08:43→17:15)
[2018-04-29] MEDS: VITAMIN B COMPLEX/VIT C CAP PO SCH (08:43)
[2018-04-29] MEDS: CARVedilol 6.25 MG TAB PO SCH ×2 (08:43→20:11)
[2018-04-29] MEDS: LIDOCAINE 5% (LIDODERM) PATCH TD SCH (08:43)
[2018-04-29] MEDS: GABAPENTIN 100 MG CAP PO SCH (08:43)
[2018-04-29] MEDS: ROSUVASTATIN 10 MG TAB (CRESTOR) PO SCH (08:43)
[2018-04-29] MEDS: CLOPIDOGREL 75 MG TAB PO SCH (08:43)
[2018-04-29] MEDS: PANTOPRAZOLE 40MG TAB (PROTONIX) PO SCH (08:43)
[2018-04-29 14:00] VITALS: BP 159/63
[2018-04-29 20:00] VITALS: BP 182/78
[2018-04-29] MEDS: **NOTE PATIENT COMMENT** MISC XX SCH (20:15)
[2018-04-29 21:00] VITALS: BP 169/85
[2018-04-30] MEDS: ACETAMINOPHEN 500 MG TAB PO PRN ×3 (01:32→18:14)
[2018-04-30 06:00] VITALS: BP 170/74
[2018-04-30 07:07] LABS: ALBUMIN 2.4 GM/DL (3.2-5.2); BILIRUBIN,TOTAL 0.3 MG/DL (0.2-1.0); CALCIUM LEVEL 9.1 MG/DL (8.8-10.2); CREATININE FOR GFR 9.05 MG/DL (0.70-1.30); GLOMERULAR FILTRATION RATE 6.2 (>49); POTASSIUM SERUM 4.2 MEQ/L (3.5-5.1); TOTAL PROTEIN 6.9 GM/DL (6.4-8.2)
[2018-04-30] MEDS: HumaLOG INSULIN (NovoLOG) PER UNIT SC SCH ×4 (08:19→21:00)
[2018-04-30] MEDS: (RENVELA) SEVELAMER **CARBONate** 800 MG TAB PO SCH ×3 (08:20→18:15)
[2018-04-30] MEDS: VITAMIN B COMPLEX/VIT C CAP PO SCH (08:21)
[2018-04-30] MEDS: CARVedilol 6.25 MG TAB PO SCH ×2 (08:21→21:26)
[2018-04-30] MEDS: GABAPENTIN 100 MG CAP PO SCH (08:21)
[2018-04-30] MEDS: HEPARIN SOD (PORCINE) 5000 UNITS/ML VIAL SQ SCH ×2 (08:21→21:27)
[2018-04-30] MEDS: PANTOPRAZOLE 40MG TAB (PROTONIX) PO SCH (08:21)
[2018-04-30] MEDS: ROSUVASTATIN 10 MG TAB (CRESTOR) PO SCH (08:21)
[2018-04-30] MEDS: CLOPIDOGREL 75 MG TAB PO SCH (08:21)
[2018-04-30] MEDS: LIDOCAINE 5% (LIDODERM) PATCH TD SCH (08:22)
[2018-04-30] MEDS: CETIRIZINE (ZyrTEC) 10 MG TAB PO SCH (08:26)
[2018-04-30] MEDS ORDERED: HEPARIN 1,000 UNITS/ML 10ML VIAL (FOR RADIOLOGY& DIALYSIS ONLY) IV ONE (11:00)
--- NOTE | 2018-04-30 11:11 | IPNPDOC ---
Date Seen The patient was seen on 04/30/18. Progress Note HPI: 68 year old male with history of nonhealing left foot diabetic ulcers secondary to ischemic foot who is s/p left popliteal artery angioplasty in 2017, developed worsening pain in his limb and presented to [facility] ED on 04/18/18 , now S/P angioplasty and stent placement with Dr. Blank of Vascular Surgery. Transferred to the care of ARU, Dr Rebollar, 04/26/18. He continued with his home dialysis schedule without complications. No acute medical complaints today. OOB with therapy. Denies any fevers, chills, weakness, fatigue, Headache, Chest Pain, Shortness of breath, cough, palpitations, abdominal pain, N/V/D or changes in bowel or bladder habits. PMHx: HTN DM HLD PVD/PAD CAD/CABG ESRD HD MWF h/o nonhealing left diabetic foot ulcers s/p left popliteal artery angioplasty in 2017 PE: GEN: 68yoM, appears stated age. No acute distress. Alert and oriented x 3. Pleasant, interactive. HEENT: Normocephalic, atraumatic. Sclera are nonicteric. Conjunctiva without injection. Moist mucous membranes. CHEST: Regular rate and rhythm, +S1, +S2 LUNGS: Clear to auscultation bilaterally. No wheezes, rales, or rhonchi. Breathing appears symmetric and easy. ABD: Round, soft, non-tender, non-distended. +Bowel sounds throughout. No rebound or guarding. EXT: No lower extremity edema appreciated. SKIN: [place], dry, warm. No rashes. NEURO: Alert and oriented x 3. No focal deficits appreciated. A&P: 68 year old male with history of nonhealing left foot diabetic ulcers sec ondary to ischemic foot who is s/p left popliteal artery angioplasty in 2017, developed worsening pain in his limb and presented to [facility] ED on 04/18/18 , now S/P angioplasty and stent placement with Dr. Blank of Vascular Surgery. Transferred to the care of ARU, Dr Rebollar, 04/26/18. He continued with his home dialysis schedule without complications. 1. Left lower extremity acute ischemia with ischemic ulcers S/P angioplasty and stent placement with Dr. Blank of Vascular Surgery. Continue Mgmt as per Vascular surgery. Patient is currently on Plavix PT and DP pulses detected with doppler. Mgmt as per Dr Smooth SANDOVAL. PT/OT as per Dr Smooth SANDOVAL. Pain control as per Dr Smooth SANDOVAL. Bowel care as per Dr Smooth SANDOVAL. DVT prophylaxis as per Dr Smooth SANDOVAL. SQ Heparin. Disposition as per Dr Smooth SANDOVAL. 2. Hypertension Coreg 6.25 BID with hold parameters. 3. ESRD on HD HD as per Nephrology. 4. IDDM Levimir SSI 5. Systolic CHF Currently on HD 6. Hyperlipidemia Continue statin 7. Hx of Gout Colchicine prn VS, I&O, 24H, Fishbone Vital Signs/I&O Vital Signs Date Time Temp Pulse Resp B/P (MAP) Pulse Ox O2 Delivery O2 Flow Rate FiO2 04/30/18 08:21 74 170/74 04/30/18 06:00 97.9 18 95 I&O- Last 24 Hours up to 6 AM 04/30/18 06:00 Intake Total 1060 ml Balance 1060 ml Laboratory Data 24H LABS Laboratory Tests 2 04/29/18 11:23: Bedside Glucose (Misc Panel) 288H 04/29/18 16:23: Bedside Glucose (Misc Panel) 164H 04/29/18 20:00: Bedside Glucose (Misc Panel) 231H 04/30/18 06:08: Anion Gap 11, Glomerular Filtration Rate 6.2L, Blood Urea Nitrogen 53H, Creatinine 9.05*H, Sodium Level 139, Potassium Level 4.2, Chloride Level 103, Carbon Dioxide Level 25, Calcium Level 9.1, Aspartate Amino Transf (AST/SGOT) 15, Alanine Aminotransferase (ALT/SGPT) 18, Alkaline Phosphatase 120H, Total Bilirubin 0.3, Total Protein 6.9, Albumin 2.4L, Albumin/Globulin Ratio 0.53L CBC/BMP Laboratory Tests 04/30/18 06:08 Calcium Level 9.1, Aspartate Amino Transf (AST/SGOT) 15, Alanine Aminotransferase (ALT/SGPT) 18, Alkaline Phosphatase 120 H, Total Bilirubin 0.3, Total Protein 6.9, Albumin 2.4 L Mikala Saunders Apr 30, 2018 11:11
[2018-04-30] MEDS ORDERED: DARBEPOETIN 100 MCG/0.5 ML *DIALYSIS* SYRINGE (J0882) IV SCH (13:45)
[2018-04-30 14:00] VITALS: BP 172/77
[2018-04-30 18:00] VITALS: BP 160/62
[2018-04-30] MEDS: **NOTE PATIENT COMMENT** MISC XX SCH (21:00)
[2018-04-30 21:20] VITALS: BP 152/68
[2018-05-01 05:39] VITALS: BP 178/80
--- NOTE | 2018-05-01 07:02 | IPN ---
DATE OF SERVICE: 04/30/2018 SUBJECTIVE: The patient is seen this morning in the rehabilitation unit receiving his physical therapy. He is scheduled for hemodialysis later this afternoon. He denies any issues. He denies any shortness of breath or dyspnea on exertion. He reports some pain in the left foot. Temperature 98.0, pulse 72, respiratory rate 18, blood pressure 160/62. Intake yesterday was 1300. Dialysis today removed 2 liters. Weight in the bed scale today is not recorded. GENERAL: The patient is seen in the rehabilitation unit doing his exercises, awake, alert and comfortable in no distress. He has some chronic speech limitation. Tongue is moist. Neck is supple. Jugular veins are not elevated. CARDIAC: S1 and S2. Regular rate and rhythm. LUNGS: Clear to auscultation bilaterally. No crackle, rale or wheeze. ABDOMEN: Soft and nontender. There are bowel sounds. LOWER EXTREMITIES: Negative for edema. The left foot is covered. The left upper extremity fistula is patent. LABS: White count 7.4, hemoglobin 9.7, sodium 139, potassium 4.2. INPATIENT MEDICATIONS: The patient is started on weekly Aranesp. Remainder of medications are unchanged from prior. PROBLEMS: 1. End stage renal disease on hemodialysis on Monday, Monday, Monday maintenance schedule. Patient is for dialysis today with goal fluid removal of 2 liters. His electrolytes and volume status are acceptable. No change is being made to his prescription. 2. Anemia related to chronic renal failure. Hemoglobin is suboptimal at 9.7. He is going to receive a dose of Aranesp today. 3. Systolic congestive heart failure. Volume status is well compensated and is regulated via hemodialysis. Continue with ultrafiltration and fluid removal and fluid restriction to 1500 mL per day. 4. Hypertension. Blood pressures have been modestly uncontrolled. He continues on carvedilol and I will add low dose calcium channel hunter.
[2018-05-01] MEDS: CETIRIZINE (ZyrTEC) 10 MG TAB PO SCH (08:36)
[2018-05-01] MEDS: GABAPENTIN 100 MG CAP PO SCH (08:36)
[2018-05-01] MEDS: ROSUVASTATIN 10 MG TAB (CRESTOR) PO SCH (08:36)
[2018-05-01] MEDS: HumaLOG INSULIN (NovoLOG) PER UNIT SC SCH ×4 (08:36→20:41)
[2018-05-01] MEDS: VITAMIN B COMPLEX/VIT C CAP PO SCH (08:36)
[2018-05-01] MEDS: LIDOCAINE 5% (LIDODERM) PATCH TD SCH (08:37)
[2018-05-01] MEDS: (RENVELA) SEVELAMER **CARBONate** 800 MG TAB PO SCH ×3 (08:37→18:23)
[2018-05-01] MEDS: CLOPIDOGREL 75 MG TAB PO SCH (08:37)
[2018-05-01] MEDS: HEPARIN SOD (PORCINE) 5000 UNITS/ML VIAL SQ SCH ×2 (08:37→20:40)
[2018-05-01] MEDS: PANTOPRAZOLE 40MG TAB (PROTONIX) PO SCH (08:37)
[2018-05-01] MEDS: CARVedilol 6.25 MG TAB PO SCH ×2 (08:40→20:41)
--- NOTE | 2018-05-01 15:24 | NUR ---
Cognitive tx not recommended at this time. Decision was made by ARU team to decrease cognitive load by changing weight bearing status to 50%. Please f/u w/ ORCHARD MANAGER if pt's cognitive status continues to limit progress in physical and/or occupational therapies. Addendum: 05/01/[address] [facility] Amended: Links added.
--- NOTE | 2018-05-01 18:20 | IPNPDOC ---
PM&R Progress Note DATE OF SERVICE: May 01, 2018 [employer] Progress Note Subjective: Patient reports minimal pain in his left foot and overall feels fine. REVIEW OF SYSTEMS: The following is a completed review of systems and has been reviewed. Review of systems otherwise unremarkable. PAIN: Patient self reports LLE pain EYES: Negative for recent vision changes EARS, NOSE, & THROAT:denies throat/ear pain, no dysphagia CARDIOVASCULAR: denies chest pain or palpitations PULMONARY: Negative. Denies shortness of breath GASTROINTESTINAL: Negative for diarrhea/constipation GENITOURINARY: Negative for dysuria MUSCULOSKELETAL: LLE weakness HEMATOLOGICAL: + anemia SKIN: LLE incisions PSYCHIATRIC: Unremarkable All other review of systems found to be negative. PHYSICAL EXAMINATION: VITAL SIGNS: Please see below. GENERAL: Pleasant and cooperative. No acute distress. HEENT: PERRL. Extraocular movements intact. Clear conjunctiva CARDIOVASCULAR: Regular rate and rhythm. No murmurs, rubs, or gallops LUNGS: Clear to auscultation bilaterally. No wheezes. No rhonchi ABDOMEN: Soft, nontender, nondistended. Positive bowel sounds. Normal active bowel sounds NEUROLOGICAL: Alert and oriented times three. Cranial nerves II through XII grossly intact. Sensation grossly intact except diminished in bilateral feet EXTREMITIES: 5\5 strength bilateral upper extremities. 5\5 strength bilat lower extremity. SKIN: left D1 and lateral forefoot ulcers ASSESSMENT:68-year-old M with past medical history of PVD, ESRD, disatolic CHF who presents status post left lower extremity ischemia with angioplasty PLAN: 1. Rehab: PT/OT, maintain PWB, ambulating with a RW 2. Neuro: pmh multiple strokes, stable- c/u statin therapy and BP meds 3. CArdio: h chronic systolic CHF with EF 30%, CAD s/p CABG- euvolemic, monitor for fluid overload- on dialysis, medicine consulted -PVD with angioplasty of his left popliteal artery and left superficial femoral artery in November 2017, s/p angioplasty 04/18/18- will consult Dr. Blank -[facility] HTN, will increase amlodipine to 10mg for better control 4. Resp: stable, encourage incentive spirometry 5. Endo: DM c/u insulin coverage 6. Renal: ESRD-renal consulted, HD M/W/F, Aranesp per renal for anemia of chronic disease 7. Rheum: pmh gout- colchicine prn, lidoderm patch 8. Pain: Gabapentin, oxycodone, tylenol 9. DVT ppx: heparin 10. GI ppx: protonix 11. SKin: cover left foots wounds, appear dry, monitor for infection 12. Dispo: TBD Allergies Coded Allergies: aspirin (Verified Allergy, Severe, CLOSES AIRWAY, 05/02/18) Vital Signs Vital Signs Date Time Temp Pulse Resp B/P (MAP) Pulse Ox O2 Delivery O2 Flow Rate FiO2 05/01/18 14:00 97.8 87 16 96 05/01/18 08:40 152/70 Laboratory Data Labs 24H Laboratory Tests 2 04/30/18 21:24: Bedside Glucose (Misc Panel) 206H 05/01/18 07:10: Bedside Glucose (Misc Panel) 150H 05/01/18 11:19: Bedside Glucose (Misc Panel) 266H 05/01/18 16:19: Bedside Glucose (Misc Panel) 161H Current Medications Current Medications Current Medications Acetaminophen (Tylenol Tab) 1,000 mg Q8HP PRN PO PAIN / FEVER Last administered on 04/30/18 18:14; Start 04/26/18 at 18:45 Amlodipine Besylate (Norvasc) 2.5 mg DAILY PO Last administered on 05/01/18 08:40; Start 05/01/18 at 09:00 Carvedilol (COReg) 6.25 mg BID PO Last administered on 05/01/18 08:40; Start 04/26/18 at 21:00 Cetirizine HCl (ZyrTEC) 10 mg DAILY PO Last administered on 05/01/18 08:36; Start 04/27/18 at 09:00 Clopidogrel Bisulfate (PLAVix) 75 mg DAILY PO Last administered on 05/01/18 08:37; Start 04/27/18 at 09:00 Darbepoetin Donny (Aranesp (Dialysis Use)) 100 mcg HD IV Last administered on 04/30/18at 15:55; Start 04/30/18 at 13:45 Dextrose (Dextrose 50%) 25 ml ASDIRECTED PRN IV SEE LABEL COMMENTS; Start at 18:45 Gabapentin (Neurontin) 100 mg DAILY PO Last administered on 05/01/18at 08:36; Start 04/27/18 at 09:00 Glucagon (Glucagon) 1 mg ASDIRECTED PRN SC SEE LABEL COMMENTS; Start 04/26/18 at 18:45 Glucose (Glucose) 16 GM ASDIRECTED PRN PO SEE LABEL COMMENTS; Start 04/26/18 at 18:45 Heparin Sodium (Porcine) (Heparin) 5,000 units Q12H SQ Last administered on 05/01/18 08:37; Start 04/26/18 at 21:00 Home Med (Med Rec Complete!) ASDIRECTED XX ; Start 04/26/18 at 20:30; Stop 04/26/18 at 20:56; Status DC Insulin Human Lispro (HumaLOG INSULIN) SEE PROTOCOL TABLE AC SC Last administered on 05/01/18 12:46; Start 04/27/18 at 07:30 Insulin Human Lispro (HumaLOG INSULIN) SEE PROTOCOL TABLE QHS SC ; Start 04/26/18 at 21:00 Lidocaine (Lidoderm Patch) 1 patch DAILY TD Last administered on 05/01/18 08:37; Start 04/27/18 at 09:00 Non-Formulary Medication ( See Comment Field Below ) REMOVE LIDODERM PATCH DAILY@21 XX Last administered on 04/30/18at 21:00; Start 04/26/18 at 21:00 Ondansetron HCl (Zofran) 4 mg Q6HP PRN PO NAUSEA OR VOMITING; Start 04/26/18 at 18:45 Oxycodone HCl (Roxicodone, Oxyir) 5 mg Q4HP PRN PO PAIN; Start 04/26/18 at 18:45 Pantoprazole Sodium (Protonix) 40 mg DAILY PO Last administered on 05/01/18 08:37; Start 04/27/18 at 09:00 Rosuvastatin Calcium (Crestor) 20 mg DAILY PO Last administered on 05/01/18 08:36; Start 04/27/18 at 09:00 Sevelamer Carbonate (Renvela) 1,600 mg WM PO Last administered on 05/01/18 12:45; Start 04/27/18 at 08:00 Vitamin B Complex/ Vitamin C (Therapeutic B Complex w/C) 1 cap DAILY PO Last administered on 05/01/18 08:36; Start 04/27/18 at 09:00 SHANNAN OLMOS MD May 01, 2018 18:20
[2018-05-01 20:00] VITALS: BP 164/77
[2018-05-02 06:00] VITALS: BP 134/84
[2018-05-02 07:19] LABS: HEMATOCRIT 34.8 % (42.0-52.0); HEMOGLOBIN 10.9 g/dl (13.5-17.5); MEAN CORPUSCULAR HEMOGLOBIN 31.2 pg (27.0-33.0); MEAN CORPUSCULAR HGB CONC 31.3 g/dl (32.0-36.5); MEAN CORPUSCULAR VOLUME 99.7 fl (80.0-96.0); PLATELET COUNT, AUTOMATED 275 10^3/uL (150-450); RED BLOOD COUNT 3.49 10^6/uL (4.30-6.10); WHITE BLOOD COUNT 8.1 10^3/uL (4.0-10.0)
[2018-05-02 07:59] LABS: ALBUMIN 2.8 GM/DL (3.2-5.2); BILIRUBIN,TOTAL 0.3 MG/DL (0.2-1.0); CALCIUM LEVEL 9.5 MG/DL (8.8-10.2); CREATININE FOR GFR 8.22 MG/DL (0.70-1.30); GLOMERULAR FILTRATION RATE 6.9 (>49); POTASSIUM SERUM 3.9 MEQ/L (3.5-5.1); TOTAL PROTEIN 7.5 GM/DL (6.4-8.2)
[2018-05-02] MEDS ORDERED: amLODIPine 10 MG TAB PO SCH (09:00)
[2018-05-02] MEDS: GABAPENTIN 100 MG CAP PO SCH (09:08)
[2018-05-02] MEDS: VITAMIN B COMPLEX/VIT C CAP PO SCH (09:08)
[2018-05-02] MEDS: CETIRIZINE (ZyrTEC) 10 MG TAB PO SCH (09:08)
[2018-05-02] MEDS: PANTOPRAZOLE 40MG TAB (PROTONIX) PO SCH (09:08)
[2018-05-02] MEDS: CLOPIDOGREL 75 MG TAB PO SCH (09:08)
[2018-05-02] MEDS: ROSUVASTATIN 10 MG TAB (CRESTOR) PO SCH (09:08)
[2018-05-02] MEDS: (RENVELA) SEVELAMER **CARBONate** 800 MG TAB PO SCH ×3 (09:08→18:18)
[2018-05-02] MEDS: CARVedilol 6.25 MG TAB PO SCH ×2 (09:08→20:09)
[2018-05-02] MEDS: HEPARIN SOD (PORCINE) 5000 UNITS/ML VIAL SQ SCH ×2 (09:09→20:10)
[2018-05-02] MEDS: HumaLOG INSULIN (NovoLOG) PER UNIT SC SCH ×4 (09:09→20:10)
[2018-05-02] MEDS ORDERED: HEPARIN 1,000 UNITS/ML 10ML VIAL (FOR RADIOLOGY& DIALYSIS ONLY) IV ONE (11:30)
[2018-05-02 14:00] VITALS: BP 145/65
--- NOTE | 2018-05-02 16:15 | IPNPDOC ---
PM&R Progress Note DATE OF SERVICE: May 02, 2018 [employer] Progress Note Subjective: Patient seen in dialysis says he feels well and denies any chest pain, nausea, or worsening pain in his feet. His is concerned he has developed a new s mall ulcer on his right big toe. REVIEW OF SYSTEMS: The following is a completed review of systems and has been reviewed. Review of systems otherwise unremarkable. PAIN: Patient self reports LLE pain EYES: Negative for recent vision changes EARS, NOSE, & THROAT:denies throat/ear pain, no dysphagia CARDIOVASCULAR: denies chest pain or palpitations PULMONARY: Negative. Denies shortness of breath GASTROINTESTINAL: Negative for diarrhea/constipation GENITOURINARY: Negative for dysuria MUSCULOSKELETAL: LLE weakness HEMATOLOGICAL: + anemia SKIN: LLE incisions PSYCHIATRIC: Unremarkable All other review of systems found to be negative. PHYSICAL EXAMINATION: VITAL SIGNS: Please see below. GENERAL: Pleasant and cooperative. No acute distress. HEENT: PERRL. Extraocular movements intact. Clear conjunctiva CARDIOVASCULAR: Regular rate and rhythm. No murmurs, rubs, or gallops LUNGS: Clear to auscultation bilaterally. No wheezes. No rhonchi ABDOMEN: Soft, nontender, nondistended. Positive bowel sounds. Normal active bowel sounds NEUROLOGICAL: Alert and oriented times three. Cranial nerves II through XII grossly intact. Sensation grossly intact except diminished in bilateral feet EXTREMITIES: 5\5 strength bilateral upper extremities. 5\5 strength bilat lower extremity. SKIN: left D1 and lateral forefoot ulcers, right D1 punctate hyperpigmented lesions ASSESSMENT:68-year-old M with past medical history of PVD, ESRD, disatolic CHF who presents status post left lower extremity ischemia with angioplasty PLAN: 1. Rehab: PT/OT, maintain PWB, ambulating further with a RW 2. Neuro: pmh multiple strokes, stable- c/u statin therapy and BP meds 3. CArdio: pmh chronic systolic CHF with EF 30%, CAD s/p CABG- euvolemic, monitor for fluid overload- on dialysis, medicine consulted -PVD with angioplasty of his left popliteal artery and left superficial femoral artery in November 2017, s/p angioplasty 04/18/18- consulted Dr. Blank and request made to assess new right toe lesion -pmh HTN, will increase amlodipine to 10mg for better control 4. Resp: stable, encourage incentive spirometry 5. Endo: DM c/u insulin coverage 6. Renal: ESRD-renal consulted, HD M/W/F, Aranesp per renal for anemia of chronic disease 7. Rheum: pmh gout- colchicine prn, will d/c lidoderm patch to prevent any further vasoconstriction and monitor 8. Pain: Gabapentin, oxycodone, tylenol 9. DVT ppx: heparin 10. GI ppx: protonix 11. SKin: cover left foots wounds, appear dry, monitor for infection, right D1 toe with punctate ischemic ulcers 12. Dispo: TBD Allergies Coded Allergies: aspirin (Verified Allergy, Severe, CLOSES AIRWAY, 05/02/18) Vital Signs Vital Signs Date Time Temp Pulse Resp B/P (MAP) Pulse Ox O2 Delivery O2 Flow Rate FiO2 05/02/18 14:00 98.2 76 18 145/65 (91) 96 Laboratory Data CBC/BMP Laboratory Tests 05/02/18 06:42 Red Blood Count 3.49 L, Mean Corpuscular Volume 99.7 H, Mean Corpuscular Hemoglobin 31.2, Mean Corpuscular Hemoglobin Concent 31.3 L, Red Cell Distribution Width 14.0, Calcium Level 9.5, Aspartate Amino Transf (AST/SGOT) 14, Alanine Aminotransferase (ALT/SGPT) 23, Alkaline Phosphatase 128 H, Total Bilirubin 0.3, Total Protein 7.5, Albumin 2.8 L Labs 24H Laboratory Tests 2 05/01/18 16:19: Bedside Glucose (Misc Panel) 161H 05/01/18 20:21: Bedside Glucose (Misc Panel) 278H 05/02/18 06:42: Nucleated Red Blood Cells % (auto) 0.0, Anion Gap 11, Glomerular Filtration Rate 6.9L, Blood Urea Nitrogen 46H, Creatinine 8.22*H, Sodium Level 137, Potassium Level 3.9, Chloride Level 99, Carbon Dioxide Level 27, Calcium Level 9.5, Aspartate Amino Transf (AST/SGOT) 14, Alanine Aminotransferase (ALT/SGPT) 23, Alkaline Phosphatase 128H, Total Bilirubin 0.3, Total Protein 7.5, Albumin 2.8L, Albumin/Globulin Ratio 0.60L 05/02/18 11:42: Bedside Glucose (Misc Panel) 169H Current Medications Current Medications Current Medications Acetaminophen (Tylenol Tab) 1,000 mg Q8HP PRN PO PAIN / FEVER Last administered on 04/30/18 18:14; Start 04/26/18 at 18:45 Amlodipine Besylate (Norvasc) 2.5 mg DAILY PO Last administered on 05/01/18 08:40; Start 05/01/18 at 09:00; Stop 05/01/18 at 18:20; Status DC Amlodipine Besylate (Norvasc) 2.5 mg QHS PO ; Start 05/03/18 at 21:00 Amlodipine Besylate (Norvasc) 10 mg DAILY PO Last administered on 05/02/18 09:08; Start 05/02/18 at 09:00; Stop 05/02/18 at 10:05; Status DC Carvedilol (COReg) 6.25 mg BID PO Last administered on 05/02/18 09:08; Start 04/26/18 at 21:00 Cetirizine HCl (ZyrTEC) 10 mg DAILY PO Last administered on 05/02/18 09:08; Start 04/27/18 at 09:00 Clopidogrel Bisulfate (PLAVix) 75 mg DAILY PO Last administered on 05/02/18 09:08; Start 04/27/18 at 09:00 Darbepoetin Donny (Aranesp (Dialysis Use)) 100 mcg HD IV Last administered on 04/30/18 15:55; Start 04/30/18 at 13:45 Dextrose (Dextrose 50%) 25 ml ASDIRECTED PRN IV SEE LABEL COMMENTS; Start 04/26/18 at 18:45 Gabapentin (Neurontin) 100 mg DAILY PO Last administered on 05/02/18 09:08; Start 04/27/18 at 09:00 Glucagon (Glucagon) 1 mg ASDIRECTED PRN SC SEE LABEL COMMENTS; Start 04/26/18 at 18:45 Glucose (Glucose) 16 GM ASDIRECTED PRN PO SEE LABEL COMMENTS; Start 04/26/18 at 18:45 Heparin Sodium (Porcine) (Heparin) 5,000 units Q12H SQ Last administered on 05/02/18 09:09; Start 04/26/18 at 21:00 Home Med (Med Rec Complete!) ASDIRECTED XX ; Start 04/26/18 at 20:30; Stop 04/26/18 at 20:56; Status DC Insulin Human Lispro (HumaLOG INSULIN) SEE PROTOCOL TABLE AC SC Last administered on 05/02/18 11:59; Start 04/27/18 at 07:30 Insulin Human Lispro (HumaLOG INSULIN) SEE PROTOCOL TABLE QHS SC Last administered on 05/01/18 20:41; Start 04/26/18 at 21:00 Lidocaine (Lidoderm Patch) 1 patch DAILY TD Last administered on 05/01/18 08:37; Start 04/27/18 at 09:00; Stop 05/01/18 at 20:26; Status DC Non-Formulary Medication ( See Comment Field Below ) REMOVE LIDODERM PATCH DAILY@21 XX Last administered on 04/30/18 21:00; Start 04/26/18 at 21:00; Stop 05/01/18 at 20:26; Status DC Ondansetron HCl (Zofran) 4 mg Q6HP PRN PO NAUSEA OR VOMITING; Start 04/26/18 at 18:45 Oxycodone HCl (Roxicodone, Oxyir) 5 mg Q4HP PRN PO PAIN; Start 04/26/18 at 18:45 Pantoprazole Sodium (Protonix) 40 mg DAILY PO Last administered on 05/02/18 09:08; Start 04/27/18 at 09:00 Rosuvastatin Calcium (Crestor) 20 mg DAILY PO Last administered on 05/02/18 09:08; Start 04/27/18 at 09:00 Sevelamer Carbonate (Renvela) 1,600 mg WM PO Last administered on 05/02/18 11:59; Start 04/27/18 at 08:00 Vitamin B Complex/ Vitamin C (Therapeutic B Complex w/C) 1 cap DAILY PO Last administered on 05/02/18 09:08; Start 04/27/18 at 09:00 SHANNAN OLMOS MD May 02, 2018 16:15
[2018-05-02 20:00] VITALS: BP 162/70
[2018-05-02] MEDS: ACETAMINOPHEN 500 MG TAB PO PRN (20:10)
[2018-05-03 06:00] VITALS: BP 158/70
[2018-05-03] MEDS: HEPARIN SOD (PORCINE) 5000 UNITS/ML VIAL SQ SCH ×2 (07:49→21:28)
[2018-05-03] MEDS: CETIRIZINE (ZyrTEC) 10 MG TAB PO SCH (07:49)
[2018-05-03] MEDS: ROSUVASTATIN 10 MG TAB (CRESTOR) PO SCH (07:49)
[2018-05-03] MEDS: PANTOPRAZOLE 40MG TAB (PROTONIX) PO SCH (07:49)
[2018-05-03] MEDS: VITAMIN B COMPLEX/VIT C CAP PO SCH (07:49)
[2018-05-03] MEDS: CLOPIDOGREL 75 MG TAB PO SCH (07:49)
[2018-05-03] MEDS: GABAPENTIN 100 MG CAP PO SCH (07:50)
[2018-05-03] MEDS: CARVedilol 6.25 MG TAB PO SCH ×2 (07:50→21:27)
[2018-05-03] MEDS: (RENVELA) SEVELAMER **CARBONate** 800 MG TAB PO SCH ×3 (07:50→17:28)
[2018-05-03] MEDS: HumaLOG INSULIN (NovoLOG) PER UNIT SC SCH ×4 (07:51→21:00)
--- NOTE | 2018-05-03 10:45 | IPN ---
DATE: 05/02/2018 SUBJECTIVE: The patient is seen this morning in the rehabilitation unit doing his exercises. He is scheduled for dialysis later this afternoon. He denies any complaints. Temperature 98.8, pulse 90, respiratory rate 18, blood pressure 145/65, saturating 96% on room air. Intake yesterday was 1300. Dialysis today removed 2 liters. Net negative 840. Weight on the bed scale today is not recorded. PHYSICAL EXAMINATION: GENERAL: The patient is seen awake, alert, oriented, and comfortable in no distress. He has some chronic speech limitation. Tongue is moist. Neck is supple. Jugular veins are not elevated. CARDIAC: S1 and S2. Regular rate and rhythm. LUNGS: Clear to auscultation bilaterally. No crackle, rale or wheeze. ABDOMEN: Soft and nontender. There are bowel sounds. LOWER EXTREMITIES: Negative for edema. The left foot has bandages on two aspects, the left upper extremity fistula. NEUROLOGIC: He is at baseline mentation. Interactive, appropriate and oriented. There is some degree of expressive aphasia. LABS: White count 8.1, hemoglobin 10.9, platelets 275. Sodium 137, potassium 3.9, bicarbonate 27. INPATIENT MEDICATIONS: Reviewed by myself. No change from prior. PROBLEMS: 1. End stage renal disease on hemodialysis on Monday, Monday, Monday maintenance schedule. Patient is dialyzed today with 2 liters of fluid removed. His electrolytes and volume status are acceptable. No change is being made to his present dialysis prescription. His sister was in agreement. 2. Anemia related to chronic renal failure. Hemoglobin is at 10.9, which is optimal. He continues on Aranesp. 3. Systolic congestive heart failure. Volume status is well compensated and is regulated via hemodialysis. Continue with fluid restriction of 1500 mL per day. Continue with fluid removal via dialysis. 4. Hypertension. Blood pressures have been modestly uncontrolled. He continues on carvedilol and his calcium channel hunter has been moved to bedtime dosing, as I do not want it to interfere with hemodialysis during the day (cause potential hypotension with hemodialysis).
--- NOTE | 2018-05-03 10:51 | IPNPDOC ---
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 REVIEW OF SYSTEMS: The following is a completed review of systems and has been reviewed. Review of systems otherwise unremarkable. PAIN: Patient self reports LLE pain EYES: Negative for recent vision changes EARS, NOSE, & THROAT:denies throat/ear pain, no dysphagia CARDIOVASCULAR: denies chest pain or palpitations PULMONARY: Negative. Denies shortness of breath GASTROINTESTINAL: Negative for diarrhea/constipation GENITOURINARY: Negative for dysuria MUSCULOSKELETAL: LLE weakness HEMATOLOGICAL: + anemia SKIN: LLE incisions PSYCHIATRIC: Unremarkable All other review of systems found to be negative. PHYSICAL EXAMINATION: VITAL SIGNS: Please see below. GENERAL: Pleasant and cooperative. No acute distress. HEENT: PERRL. Extraocular movements intact. Clear conjunctiva CARDIOVASCULAR: Regular rate and rhythm. No murmurs, rubs, or gallops LUNGS: Clear to auscultation bilaterally. No wheezes. No rhonchi ABDOMEN: Soft, nontender, nondistended. Positive bowel sounds. Normal active bowel sounds NEUROLOGICAL: Alert and oriented times three. Cranial nerves II through XII grossly intact. Sensation grossly intact except diminished in bilateral feet EXTREMITIES: 5\5 strength bilateral upper extremities. 5\5 strength bilat lower extremity. SKIN: left D1 and lateral forefoot ulcers, right D1 punctate hyperpigmented lesions ASSESSMENT:68-year-old M with past medical history of PVD, ESRD, diastolic CHF who presents status post left lower extremity ischemia with angioplasty PLAN: 1. Rehab: PT/OT, maintain PWB, ambulating further with a RW 2. Neuro: pmh multiple strokes, stable- c/u statin therapy and BP meds 3. CArdio: pmh chronic systolic CHF with EF 30%, CAD s/p CABG- euvolemic, monitor for fluid overload- on dialysis, medicine consulted -PVD with angioplasty of his left popliteal artery and left superficial femoral artery in November 2017, s/p angioplasty 04/18/18- consulted Dr. Blank and request made to assess new right toe lesion -pmh HTN, c/u amlodipine 10mg for better control 4. Resp: stable, encourage incentive spirometry 5. Endo: DM c/u insulin coverage-stable 6. Renal: ESRD-renal consulted, HD M/W/F, Aranesp per renal for anemia of chronic disease 7. Rheum: pmh gout- colchicine prn-stable 8. Pain: Gabapentin, oxycodone, tylenol 9. DVT ppx: c/u heparin 10. GI ppx: protonix 11. SKin: cover left foots wounds, appear dry, monitor for infection, right D1 toe with punctate ischemic ulcers 12. Dispo: 05/09/18 to home with , progressing towards goals Allergies Coded Allergies: aspirin (Verified Allergy, Severe, CLOSES AIRWAY, 05/02/18) Vital Signs Vital Signs Date Time Temp Pulse Resp B/P (MAP) Pulse Ox O2 Delivery O2 Flow Rate FiO2 05/03/18 07:50 82 158/70 05/03/18 06:00 98.7 17 94 Laboratory Data Labs 24H Laboratory Tests 2 05/02/18 11:42: Bedside Glucose (Misc Panel) 169H 05/02/18 18:13: Bedside Glucose (Misc Panel) 156H 05/02/18 19:38: Bedside Glucose (Misc Panel) 171H 05/03/18 05:41: Bedside Glucose (Misc Panel) 154H Current Medications Current Medications Current Medications Acetaminophen (Tylenol Tab) 1,000 mg Q8HP PRN PO PAIN / FEVER Last administered on 05/02/18at 20:10; Start 04/26/18 at 18:45 Amlodipine Besylate (Norvasc) 2.5 mg DAILY PO Last administered on 05/01/18at 08:40; Start 05/01/18 at 09:00; Stop 05/01/18 at 18:20; Status DC Amlodipine Besylate (Norvasc) 2.5 mg QHS PO ; Start 05/03/18 at 21:00; Stop 05/03/18 at 21:00; Status DC Amlodipine Besylate (Norvasc) 5 mg QHS PO ; Start 05/03/18 at 21:00 Amlodipine Besylate (Norvasc) 10 mg DAILY PO Last administered on 05/02/18at 09:08; Start 05/02/18 at 09:00; Stop 05/02/18 at 10:05; Status DC Carvedilol (COReg) 6.25 mg BID PO Last administered on 05/03/18at 07:50; Start 04/26/18 at 21:00 Cetirizine HCl (ZyrTEC) 10 mg DAILY PO Last administered on 05/03/18 07:49; Start 04/27/18 at 09:00 Clopidogrel Bisulfate (PLAVix) 75 mg DAILY PO Last administered on 05/03/18at 07:49; Start 04/27/18 at 09:00 Darbepoetin Donny (Aranesp (Dialysis Use)) 100 mcg HD IV Last administered on 04/30/18at 15:55; Start 04/30/18 at 13:45 Dextrose (Dextrose 50%) 25 ml ASDIRECTED PRN IV SEE LABEL COMMENTS; Start 04/26/18 at 18:45 Gabapentin (Neurontin) 100 mg DAILY PO Last administered on 05/03/18at 07:50; Start 04/27/18 at 09:00 Glucagon (Glucagon) 1 mg ASDIRECTED PRN SC SEE LABEL COMMENTS; Start 04/26/18 at 18:45 Glucose (Glucose) 16 GM ASDIRECTED PRN PO SEE LABEL COMMENTS; Start 04/26/18 at 18:45 Heparin Sodium (Porcine) (Heparin) 5,000 units Q12H SQ Last administered on 05/03/18at 07:49; Start 04/26/18 at 21:00 Home Med (Med Rec Complete!) ASDIRECTED XX ; Start 04/26/18 at 20:30; Stop 04/26/18 at 20:56; Status DC Insulin Human Lispro (HumaLOG INSULIN) SEE PROTOCOL TABLE AC SC Last administered on 05/03/18at 07:51; Start 04/27/18 at 07:30 Insulin Human Lispro (HumaLOG INSULIN) SEE PROTOCOL TABLE QHS SC Last administered on 05/01/18at 20:41; Start 04/26/18 at 21:00 Lidocaine (Lidoderm Patch) 1 patch DAILY TD Last administered on 05/01/18at 08:37; Start 04/27/18 at 09:00; Stop 05/01/18 at 20:26; Status DC Miscellaneous (Unresolved Clarification Entry) SEE LABEL COMMENTS DAILY XX ; St art 05/02/18 at 09:00 Non-Formulary Medication ( See Comment Field Below ) REMOVE LIDODERM PATCH DAILY@21 XX Last administered on 04/30/18at 21:00; Start 04/26/18 at 21:00; Stop 05/01/18 at 20:26; Status DC Ondansetron HCl (Zofran) 4 mg Q6HP PRN PO NAUSEA OR VOMITING; Start 04/26/18 at 18:45 Oxycodone HCl (Roxicodone, Oxyir) 5 mg Q4HP PRN PO PAIN; Start 04/26/18 at 18:45 Pantoprazole Sodium (Protonix) 40 mg DAILY PO Last administered on 05/03/18 07:49; Start 04/27/18 at 09:00 Rosuvastatin Calcium (Crestor) 20 mg DAILY PO Last administered on 05/03/18 07:49; Start 04/27/18 at 09:00 Sevelamer Carbonate (Renvela) 1,600 mg WM PO Last administered on 05/03/18 07:50; Start 04/27/18 at 08:00 Vitamin B Complex/ Vitamin C (Therapeutic B Complex w/C) 1 cap DAILY PO Last administered on 05/03/18 07:49; Start 04/27/18 at 09:00 SHANNAN OLMOS MD May 03, 2018 10:51
--- NOTE | 2018-05-03 13:17 | IPNPDOC ---
Date Seen The patient was seen on 05/03/18. Progress Note HPI: 68 year old male with history of nonhealing left foot diabetic ulcers secondary to ischemic foot who is s/p left popliteal artery angioplasty in 2017, developed worsening pain in his limb and presented to [facility] ED on 04/18/18 , now S/P angioplasty and stent placement with Dr. Blank of Vascular Surgery. Transferred to the care of ARU, Dr Rebollar, 04/26/18. He has continued with his home dialysis schedule without complications. No medical complaints today. Denies any fevers, chills, weakness, fatigue, Headache, Chest Pain, Shortness of breath, cough, palpitations, abdominal pain, N/V/D or changes in bowel or bladder habits. PMHx: HTN DM HLD PVD/PAD CAD/CABG ESRD HD MWF h/o nonhealing left diabetic foot ulcers s/p left popliteal artery angioplasty in 2017 PE: GEN: 68yoM, appears stated age. No acute distress. Alert and oriented x 3. Pleasant, interactive. HEENT: Normocephalic, atraumatic. Sclera are nonicteric. Conjunctiva without injection. Moist mucous membranes. CHEST: Regular rate and rhythm, +S1, +S2 LUNGS: Clear to auscultation bilaterally. No wheezes, rales, or rhonchi. Breathing appears symmetric and easy. ABD: Round, soft, non-tender, non-distended. +Bowel sounds throughout. EXT: No lower extremity edema appreciated. SKIN: [place], dry, warm. No rashes. NEURO: Alert and oriented x 3. No focal deficits appreciated. A&P: 68 year old male with history of nonhealing left foot diabetic ulcers secondary to ischemic foot who is s/p left popliteal artery angioplasty in 2017, developed worsening pain in his limb and presented to [facility] ED on 04/18/18 , now S/P angioplasty and stent placement with Dr. Blank of Vascular Surgery. Transferred to the care of ARU, Dr Rebollar, 04/26/18. He continued with his home dialysis schedule without complications. 1. Left lower extremity acute ischemia with ischemic ulcers S/P angioplasty and stent placement with Dr. Blank of Vascular Surgery. Continue Mgmt as per Vascular surgery. Patient is currently on Plavix PT and DP pulses detected with doppler. Mgmt as per Dr Smooth SANDOVAL. PT/OT as per Dr Smooth SANDOVAL. Pain control as per Dr Smooth SANDOVAL. Bowel care as per Dr Smooth SANDOVAL. DVT prophylaxis as per Dr Smooth SANDOVAL. SQ Heparin. Disposition as per Dr Smooth SANDOVAL. 2. Hypertension Coreg 6.25 BID with hold parameters. Norvasc 5 mg daily. 3. ESRD on HD HD as per Nephrology. 4. IDDM Levimir SSI 5. Systolic CHF Currently on HD 6. Hyperlipidemia Continue statin 7. Hx of Gout Colchicine prn 8. ACD. Aranesp as per nephrology. VS, I&O, 24H, Fishbone Vital Signs/I&O Vital Signs Date Time Temp Pulse Resp B/P (MAP) Pulse Ox O2 Delivery O2 Flow Rate FiO2 05/03/18 07:50 82 158/70 05/03/18 06:00 98.7 17 94 I&O- Last 24 Hours up to 6 AM 05/03/18 06:00 Intake Total 960 ml Output Total 2000 ml Balance -1040 ml Laboratory Data 24H LABS Laboratory Tests 2 05/02/18 18:13: Bedside Glucose (Misc Panel) 156H 05/02/18 19:38: Bedside Glucose (Misc Panel) 171H 05/03/18 05:41: Bedside Glucose (Misc Panel) 154H 05/03/18 12:01: Bedside Glucose (Misc Panel) 222H Mikala Saunders May 03, 2018 13:17
[2018-05-03 14:00] VITALS: BP 128/61
[2018-05-03] MEDS: ACETAMINOPHEN 500 MG TAB PO PRN (17:28)
[2018-05-03 20:00] VITALS: BP 161/70
[2018-05-04] VITALS (7 sets, daily range): BP systolic 99–175; BP diastolic 60–78
[2018-05-04] MEDS: VITAMIN B COMPLEX/VIT C CAP PO SCH (05:47)
[2018-05-04] MEDS: ACETAMINOPHEN 500 MG TAB PO PRN ×2 (05:49→13:26)
[2018-05-04] MEDS: CARVedilol 6.25 MG TAB PO SCH ×2 (05:49→21:32)
[2018-05-04] MEDS: ROSUVASTATIN 10 MG TAB (CRESTOR) PO SCH (05:50)
[2018-05-04] MEDS: PANTOPRAZOLE 40MG TAB (PROTONIX) PO SCH (05:50)
[2018-05-04] MEDS: GABAPENTIN 100 MG CAP PO SCH (05:50)
[2018-05-04] MEDS: HEPARIN SOD (PORCINE) 5000 UNITS/ML VIAL SQ SCH ×2 (05:51→21:32)
[2018-05-04] MEDS: CLOPIDOGREL 75 MG TAB PO SCH (05:51)
[2018-05-04] MEDS: CETIRIZINE (ZyrTEC) 10 MG TAB PO SCH (05:51)
[2018-05-04] MEDS: (RENVELA) SEVELAMER **CARBONate** 800 MG TAB PO SCH ×3 (06:57→18:00)
[2018-05-04] MEDS: HumaLOG INSULIN (NovoLOG) PER UNIT SC SCH ×4 (06:57→21:00)
[2018-05-04 07:19] LABS: ALBUMIN 2.6 GM/DL (3.2-5.2); BILIRUBIN,TOTAL 0.3 MG/DL (0.2-1.0); CREATININE FOR GFR 7.77 MG/DL (0.70-1.30); GLOMERULAR FILTRATION RATE 7.4 (>49); POTASSIUM SERUM 4.5 MEQ/L (3.5-5.1); TOTAL PROTEIN 7.1 GM/DL (6.4-8.2)
[2018-05-04] MEDS ORDERED: BUPIVACAINE HCL 0.5% 10 ML VIAL As Ordered ONE (12:33)
[2018-05-04] MEDS ORDERED: LIDOCAINE 2% MDV 20 ML VIAL As Ordered ONE (12:34)
[2018-05-04] MEDS ORDERED: ISOVUE-370 76% 125ML VIAL (Q9967 PER ML) As Ordered ONE (12:34)
[2018-05-04] MEDS ORDERED: HEPARIN 1,000 UNITS/ML 10ML VIAL (FOR RADIOLOGY& DIALYSIS ONLY) As Ordered ONE (12:34)
[2018-05-04] MEDS ORDERED: ISOVUE-300 61% 100ML VIAL (Q9967) As Ordered ONE (12:36)
[2018-05-04] MEDS ORDERED: HEPARIN 1,000 UNITS/ML 10ML VIAL (FOR RADIOLOGY& DIALYSIS ONLY) IV ONE (13:00)
--- NOTE | 2018-05-04 13:26 | IPNPDOC ---
Date Seen The patient was seen on 05/04/18. Progress Note HPI: 68 year old male with history of nonhealing left foot diabetic ulcers secondary to ischemic foot who is s/p left popliteal artery angioplasty in 2017, developed worsening pain in his limb and presented to [facility] ED on 04/18/18 , now S/P angioplasty and stent placement with Dr. Blank of Vascular Surgery. Transferred to the care of ARU, Dr Rebollar, 04/26/18. He has continued with his home dialysis schedule without complications. No medical complaints today. Pt had HD this AM. Feeling tired. Denies any fevers, chills, weakness, fatigue, Headache, Chest Pain, Shortness of breath, cough, palpitations, abdominal pain, N/V/D or changes in bowel or bladder habits. PMHx: HTN DM HLD PVD/PAD CAD/CABG ESRD HD MWF h/o nonhealing left diabetic foot ulcers s/p left popliteal artery angioplasty in 2017 PE: GEN: 68yoM, appears stated age. No acute distress. Alert and oriented x 3. Pleasant, interactive. HEENT: Normocephalic, atraumatic. Sclera are nonicteric. Conjunctiva without injection. Moist mucous membranes. CHEST: Regular rate and rhythm, +S1, +S2 LUNGS: Clear to auscultation bilaterally. No wheezes, rales, or rhonchi. Breathing appears symmetric and easy. ABD: Round, soft, non-tender, non-distended. +Bowel sounds throughout. EXT: No lower extremity edema appreciated. SKIN: [place], dry, warm. No rashes. NEURO: Alert and oriented x 3. No focal deficits appreciated. A&P: 68 year old male with history of nonhealing left foot diabetic ulcers secondary to ischemic foot who is s/p left popliteal artery angioplasty in 2017, developed worsening pain in his limb and presented to [facility] ED on 04/18/18 , now S/P angioplasty and stent placement with Dr. Blank of Vascular Surgery. Transferred to the care of ARU, Dr Rebollar, 04/26/18. He continued with his home dialysis schedule without complications. 1. Left lower extremity acute ischemia with ischemic ulcers S/P angioplasty and stent placement with Dr. Blank of Vascular Surgery. Continue Mgmt as per Vascular surgery. The pt is to have LLE angio with arthrectomy 05/04/[address] Blank. Patient is currently on Plavix Mgmt as per Dr Smooth SANDOVAL. PT/OT as per Dr Smooth SANDOVAL. Pain control as per Dr Smooth SANDOVAL. Bowel care as per Dr Smooth SANDOVAL. DVT prophylaxis as per Dr Smooth SANDOVAL. SQ Heparin. Disposition as per Dr Smooth SANDOVAL. 2. Hypertension Coreg 6.25 BID with hold parameters. Norvasc 10 mg daily. Nephrology adjusting BP meds. 3. ESRD on HD HD as per Nephrology. 4. IDDM Levimir SSI 5. Systolic CHF Currently on HD 6. Hyperlipidemia Continue statin 7. Hx of Gout Colchicine prn 8. ACD. Aranesp as per nephrology. VS, I&O, 24H, Fishbone Vital Signs/I&O Vital Signs Date Time Temp Pulse Resp B/P (MAP) Pulse Ox O2 Delivery O2 Flow Rate FiO2 05/04/18 05:49 83 160/70 05/04/18 05:22 98.3 18 97 I&O- Last 24 Hours up to 6 AM 05/04/18 06:00 Intake Total 1320 ml Balance 1320 ml Laboratory Data 24H LABS Laboratory Tests 2 05/03/18 16:31: Bedside Glucose (Misc Panel) 118H 05/03/18 20:39: Bedside Glucose (Misc Panel) 143H 05/04/18 05:48: Bedside Glucose (Misc Panel) 150H 05/04/18 06:29: Anion Gap 11, Glomerular Filtration Rate 7.4L, Blood Urea Nitrogen 44H, Creatinine 7.77H, Sodium Level 138, Potassium Level 4.5, Chloride Level 102, Carbon Dioxide Level 25, Calcium Level 9.0, Aspartate Amino Transf (AST/SGOT) 13, Alanine Aminotransferase (ALT/SGPT) 17, Alkaline Phosphatase 113, Total Bilirubin 0.3, Total Protein 7.1, Albumin 2.6L, Albumin/Globulin Ratio 0.58L 05/04/18 12:23: Bedside Glucose (Misc Panel) 135H CBC/BMP Laboratory Tests 05/04/18 06:29 Calcium Level 9.0, Aspartate Amino Transf (AST/SGOT) 13, Alanine Aminotransferase (ALT/SGPT) 17, Alkaline Phosphatase 113, Total Bilirubin 0.3, Total Protein 7.1, Albumin 2.6 L Mikala Saunders May 04, 2018 13:26
[2018-05-04] MEDS ORDERED: diphenhydrAMINE INJ 50MG/ML VIAL (J1200) As Ordered ONE (14:10)
[2018-05-04] MEDS ORDERED: fentaNYL 100 MCG/2 ML INJECTION (J3010) As Ordered ONE ×2 (14:11→15:59)
[2018-05-04] MEDS ORDERED: PROTAMINE SULF INJ 50 MG/5 ML VIAL (J2720) As Ordered ONE (14:11)
[2018-05-04] MEDS ORDERED: MIDAZOLAM INJ 2 MG/2 ML VIAL (J2250) As Ordered ONE ×2 (14:11→15:59)
[2018-05-04] MEDS ORDERED: ONDANSETRON 4MG/2ML VIAL (J2405) As Ordered ONE (16:56)
--- NOTE | 2018-05-04 18:08 | IPNPDOC ---
PM&R Progress Note DATE OF SERVICE: May 04, 2018 [employer] Progress Note Subjective: Patient seen after angioplasty today denies foot pain or groin pain. REVIEW OF SYSTEMS: The following is a completed review of systems and has been reviewed. Review of systems otherwise unremarkable. PAIN: Patient self reports LLE pain EYES: Negative for recent vision changes EARS, NOSE, & THROAT:denies throat/ear pain, no dysphagia CARDIOVASCULAR: denies chest pain or palpitations PULMONARY: Negative. Denies shortness of breath GASTROINTESTINAL: Negative for diarrhea/constipation GENITOURINARY: Negative for dysuria MUSCULOSKELETAL: LLE weakness HEMATOLOGICAL: + anemia SKIN: LLE incisions PSYCHIATRIC: Unremarkable All other review of systems found to be negative. PHYSICAL EXAMINATION: VITAL SIGNS: Please see below. GENERAL: Pleasant and cooperative. No acute distress. HEENT: PERRL. Extraocular movements intact. Clear conjunctiva CARDIOVASCULAR: Regular rate and rhythm. No murmurs, rubs, or gallops LUNGS: Clear to auscultation bilaterally. No wheezes. No rhonchi ABDOMEN: Soft, nontender, nondistended. Positive bowel sounds. Normal active bowel sounds NEUROLOGICAL: Alert and oriented times three. Cranial nerves II through XII grossly intact. Sensation grossly intact except diminished in bilateral feet EXTREMITIES: 5\5 strength bilateral upper extremities. 5\5 strength bilat lower extremity. SKIN: left D1 and lateral forefoot ulcers, right D1 punctate hyperpigmented lesions ASSESSMENT:68-year-old M with past medical history of PVD, ESRD, diastolic CHF who presents status post left lower extremity ischemia with angioplasty PLAN: 1. Rehab: PT/OT, maintain PWB, ambulating further with a RW 2. Neuro: pmh multiple strokes, stable- c/u statin therapy and BP meds 3. CArdio: pmh chronic systolic CHF with EF 30%, CAD s/p CABG- euvolemic, monitor for fluid overload- on dialysis, medicine consulted -PVD with angioplasty of his left popliteal artery and left superficial femoral artery in November 2017, s/p angioplasty 04/18/18- consulted Dr. Blank and request made to assess new right toe lesion, repeat angioplasty today -pmh HTN, c/u amlodipine 10mg for better control 4. Resp: stable, encourage incentive spirometry 5. Endo: DM c/u insulin coverage-stable 6. Renal: ESRD-renal consulted, HD M/W/F, Aranesp per renal for anemia of chronic disease 7. Rheum: pmh gout- colchicine prn-stable 8. Pain: Gabapentin, oxycodone, tylenol 9. DVT ppx: c/u heparin 10. GI ppx: protonix 11. SKin: cover left foots wounds, appear dry, monitor for infection, right D1 toe with punctate ischemic ulcers 12. Dispo: 05/09/18 to home with , progressing towards goals Allergies Coded Allergies: aspirin (Verified Allergy, Severe, CLOSES AIRWAY, 05/02/18) Vital Signs Vital Signs Date Time Temp Pulse Resp B/P (MAP) Pulse Ox O2 Delivery O2 Flow Rate FiO2 05/04/18 05:49 83 160/70 05/04/18 05:22 98.3 18 97 Laboratory Data CBC/BMP Laboratory Tests 05/04/18 06:29 Calcium Level 9.0, Aspartate Amino Transf (AST/SGOT) 13, Alanine Aminotransferase (ALT/SGPT) 17, Alkaline Phosphatase 113, Total Bilirubin 0.3, Total Protein 7.1, Albumin 2.6 L Labs 24H Laboratory Tests 2 05/03/18 20:39: Bedside Glucose (Misc Panel) 143H 05/04/18 05:48: Bedside Glucose (Misc Panel) 150H 05/04/18 06:29: Anion Gap 11, Glomerular Filtration Rate 7.4L, Blood Urea Nitrogen 44H, Creatinine 7.77H, Sodium Level 138, Potassium Level 4.5, Chloride Level 102, Carbon Dioxide Level 25, Calcium Level 9.0, Aspartate Amino Transf (AST/SGOT) 13, Alanine Aminotransferase (ALT/SGPT) 17, Alkaline Phosphatase 113, Total Bilirubin 0.3, Total Protein 7.1, Albumin 2.6L, Albumin/Globulin Ratio 0.58L 05/04/18 12:23: Bedside Glucose (Misc Panel) 135H 05/04/18 17:48: Bedside Glucose (Misc Panel) 131H Current Medications Current Medications Current Medications Acetaminophen (Tylenol Tab) 1,000 mg Q8HP PRN PO PAIN / FEVER Last administered on 05/04/18at 13:26; Start 04/26/18 at 18:45 Amlodipine Besylate (Norvasc) 2.5 mg DAILY PO Last administered on 05/01/18at 08:40; Start 05/01/18 at 09:00; Stop 05/01/18 at 18:20; Status DC Amlodipine Besylate (Norvasc) 2.5 mg QHS PO ; Start 05/03/18 at 21:00; Stop 05/03/18 at 21:00; Status DC Amlodipine Besylate (Norvasc) 5 mg QHS PO Last administered on 05/03/18at 21:27; Start 05/03/18 at 21:00; Stop 05/04/18 at 11:04; Status DC Amlodipine Besylate (Norvasc) 10 mg DAILY PO Last administered on 05/02/18at 09:08; Start 05/02/18 at 09:00; Stop 05/02/18 at 10:05; Status DC Amlodipine Besylate (Norvasc) 10 mg QHS PO ; Start 05/04/18 at 21:00 Carvedilol (COReg) 6.25 mg BID PO Last administered on 05/04/18at 05:49; Start 04/26/18 at 21:00 Cetirizine HCl (ZyrTEC) 10 mg DAILY PO Last administered on 05/04/18at 05:51; Start 04/27/18 at 09:00 Clopidogrel Bisulfate (PLAVix) 75 mg DAILY PO Last administered on 05/04/18at 05:51; Start 04/27/18 at 09:00 Darbepoetin Donny (Aranesp (Dialysis Use)) 100 mcg HD IV Last administered on 04/30/18at 15:55; Start 04/30/18 at 13:45 Dextrose (Dextrose 50%) 25 ml ASDIRECTED PRN IV SEE LABEL COMMENTS; Start 04/26/18 at 18:45 Gabapentin (Neurontin) 100 mg DAILY PO Last administered on 05/04/18at 05:50; Start 04/27/18 at 09:00 Glucagon (Glucagon) 1 mg ASDIRECTED PRN SC SEE LABEL COMMENTS; Start 04/26/18 at 18:45 Glucose (Glucose) 16 GM ASDIRECTED PRN PO SEE LABEL COMMENTS; Start 04/26/18 at 18:45 Heparin Sodium (Porcine) (Heparin) 5,000 units Q12H SQ Last administered on 05/04/18at 05:51; Start 04/26/18 at 21:00 Home Med (Med Rec Complete!) ASDIRECTED XX ; Start 04/26/18 at 20:30; Stop 04/26/18 at 20:56; Status DC Insulin Human Lispro (HumaLOG INSULIN) SEE PROTOCOL TABLE AC SC Last administered on 05/04/18 06:57; Start 04/27/18 at 07:30 Insulin Human Lispro (HumaLOG INSULIN) SEE PROTOCOL TABLE QHS SC Last administered on 05/01/18 20:41; Start 04/26/18 at 21:00 Lidocaine (Lidoderm Patch) 1 patch DAILY TD Last administered on 05/01/18 08:3 7; Start 04/27/18 at 09:00; Stop 05/01/18 at 20:26; Status DC Miscellaneous (Unresolved Clarification Entry) SEE LABEL COMMENTS DAILY XX ; Start 05/02/18 at 09:00; Stop 05/03/18 at 13:50; Status DC Non-Formulary Medication ( See Comment Field Below ) REMOVE LIDODERM PATCH DAILY@21 XX Last administered on 04/30/18 21:00; Start 04/26/18 at 21:00; Stop 05/01/18 at 20:26; Status DC Ondansetron HCl (Zofran) 4 mg Q6HP PRN PO NAUSEA OR VOMITING; Start 04/26/18 at 18:45 Oxycodone HCl (Roxicodone, Oxyir) 5 mg Q4HP PRN PO PAIN; Start 04/26/18 at 18:45; Stop 05/03/18 at 13:49; Status DC Pantoprazole Sodium (Protonix) 40 mg DAILY PO Last administered on 05/04/18 05:50; Start 04/27/18 at 09:00 Rosuvastatin Calcium (Crestor) 20 mg DAILY PO Last administered on 05/04/18 05:50; Start 04/27/18 at 09:00 Sevelamer Carbonate (Renvela) 1,600 mg WM PO Last administered on 05/04/18 06:57; Start 04/27/18 at 08:00 Vitamin B Complex/ Vitamin C (Therapeutic B Complex w/C) 1 cap DAILY PO Last a dministered on 05/04/18 05:47; Start 04/27/18 at 09:00 SHANNAN OLMOS MD May 04, 2018 18:08
[2018-05-04] MEDS ORDERED: amLODIPine 10 MG TAB PO SCH (21:00)
[2018-05-05 02:00] VITALS: BP 142/68
[2018-05-05 06:00] VITALS: BP 132/77
[2018-05-05 07:12] LABS: HEMATOCRIT 32.6 % (42.0-52.0); HEMOGLOBIN 10.2 g/dl (13.5-17.5); MEAN CORPUSCULAR HEMOGLOBIN 31.9 pg (27.0-33.0); MEAN CORPUSCULAR HGB CONC 31.3 g/dl (32.0-36.5); MEAN CORPUSCULAR VOLUME 101.9 fl (80.0-96.0); PLATELET COUNT, AUTOMATED 172 10^3/uL (150-450)
[2018-05-05 08:09] LABS: CREATININE FOR GFR 5.62 MG/DL (0.70-1.30); GLOMERULAR FILTRATION RATE 10.8 (>49); MAGNESIUM LEVEL 2.1 MG/DL (1.8-2.4); POTASSIUM SERUM 4.3 MEQ/L (3.5-5.1)
[2018-05-05 09:02] LABS: BASO # 0.1 10^3/uL (0.0-0.2); BASO % 0.8 % (0.0-1.0); EOS # 0.1 10^3/uL (0.0-0.50); EOS % 1.5 % (0.0-3.0); LYMPH # 0.5 10^3/uL (1.5-4.5); LYMPH % 5.8 % (24.0-44.0); MONO # 0.7 10^3/uL (0.0-0.8); NEUTROPHILS # 6.8 10^3/uL (1.8-7.7); NEUTROPHILS % 82.3 % (36.0-66.0)
[2018-05-05] MEDS: HEPARIN SOD (PORCINE) 5000 UNITS/ML VIAL SQ SCH ×2 (09:27→21:21)
[2018-05-05] MEDS: VITAMIN B COMPLEX/VIT C CAP PO SCH (09:28)
[2018-05-05] MEDS: CLOPIDOGREL 75 MG TAB PO SCH (09:28)
[2018-05-05] MEDS: ROSUVASTATIN 10 MG TAB (CRESTOR) PO SCH (09:28)
[2018-05-05] MEDS: CETIRIZINE (ZyrTEC) 10 MG TAB PO SCH (09:28)
[2018-05-05] MEDS: PANTOPRAZOLE 40MG TAB (PROTONIX) PO SCH (09:28)
[2018-05-05] MEDS: HumaLOG INSULIN (NovoLOG) PER UNIT SC SCH ×4 (09:28→21:00)
[2018-05-05] MEDS: GABAPENTIN 100 MG CAP PO SCH (09:28)
[2018-05-05] MEDS: (RENVELA) SEVELAMER **CARBONate** 800 MG TAB PO SCH ×3 (09:28→18:07)
[2018-05-05] MEDS: CARVedilol 6.25 MG TAB PO SCH ×2 (09:29→21:21)
[2018-05-05 10:00] VITALS: BP 152/68
--- NOTE | 2018-05-05 10:35 | IPN ---
DATE OF SERVICE: 05/04/2018 SUBJECTIVE: Ayaan is seen and examined this morning in the hemodialysis unit receiving his maintenance treatment. He denies any overnight complaints or issues. He is for angiogram with Dr. Blank later today. He had some mild hypotension of hemodialysis during today's treatment, and I am decreasing the Norvasc again. Temperature 98.3, pulse 83, respiratory rate 18, blood pressure 160/70, saturating 97% on room air. Intake yesterday was 1300. Dialysis today removed 2 liters. GENERAL: Patient is seen on dialysis receiving his treatment, awake, alert, oriented, no acute distress. There is some chronic expressive aphasia. Tongue is moist. Neck is supple. Jugular veins are not elevated. CARDIAC: S1, S2. Regular rate and rhythm. LUNGS: Are clear to auscultation. There is no crackle, rale, or wheeze. ABDOMEN: Is soft and nontender. There are bowel sounds. The lower extremities are negative for edema. The left foot has bandages. The left upper extremity fistula is presently in use. NEUROLOGIC: He is at baseline mentation, interactive, appropriate, and oriented. There is some degree of expressive aphasia. LABS: White count 8.1, hemoglobin 10.9. Sodium 138, potassium 4.5, bicarbonate 25. INPATIENT MEDICATIONS: Norvasc dose is dropped to 2.5 mg by mouth nightly. Remainder medications are unchanged from prior. PROBLEMS: 1. End stage renal disease on hemodialysis on Monday, Monday, Monday maintenance schedule. He was dialyzed today with 2 liters of fluid removed. I believe the 3 liters documented in the [employer] system is inaccurate. His electrolytes and volume status are acceptable. He did have some mild hypotension of hemodialysis. I am decreasing his nighttime dose of Norvasc to 2.5 mg. 2. Anemia related to chronic renal failure. Hemoglobin is at target. He continues on Aranesp. 3. Systolic congestive heart failure. Volume status is well compensated and is regulated via hemodialysis. 4. Hypertension. Blood pressures have been modestly uncontrolled, but then he did have some hypotension of hemodialysis with his treatment today. He continues on carvedilol and Norvasc is reduced to 2.5 mg to be given at bedtime as I do not want it to interfere with hemodialysis during the day. 5. Left lower extremity with ischemic ulcer. Managed as per vascular surgery. For angiogram again this afternoon.
--- NOTE | 2018-05-05 13:09 | IPN ---
DATE: 05/05/2018 Mr. Dykes is seen this afternoon on his bedside. He reports that his foot is feeling better since he had angioplasty done last evening. Nursing staff reports that his foot turns blue whenever he hangs it and sits at the edge of bed. Left dorsalis pedis artery could not be felt even with Doppler. The patient has end-stage renal disease and remains dialysis dependent. He was dialyzed yesterday. PHYSICAL EXAMINATION: Temperature 99 degrees Fahrenheit, heart rate 88 per minute, and respiratory rate 18 per minute. Blood pressure 152/68 mmHg and oxygen saturation 98% on room air. Head is atraumatic. Neck is supple and without jugular venous distention (JVD) or thyroid enlargement. Heart sounds are irregular in rhythm and lungs clear to auscultation. Abdomen: Soft, nontender. Bowel sounds are present. Extremities: Have no cyanosis or clubbing. Left foot ischemic big toe is without any signs of infection. Today's labs show WBC count 8.0, hemoglobin 10.2 and hematocrit 32.6. Sodium 136, potassium 4.3, CO2 of 29, BUN 30 and creatinine 5.62. PROBLEM #1: End-stage renal disease. The patient was dialyzed yesterday and next dialysis will be scheduled for Monday. At present, there is no emergent indication for dialysis today. His volume status and electrolytes are all well compensated. PROBLEM #2: Hypertension. Blood pressure is very well controlled on current antihypertensive medications. No changes are needed. PROBLEM #3: Anemia. His anemia is stable at present, and we will continue to manage with Aranesp during dialysis on a weekly basis. PROBLEM #4: Left foot ischemic ulcers. The patient underwent another angioplasty last evening. He is feeling better and nursing staff is waiting for Dr. Blank to visit him or call.
[2018-05-05 14:00] VITALS: BP 155/68
--- NOTE | 2018-05-05 14:55 | IPNPDOC ---
Text Note Date of Service The patient was seen on 05/05/18. NOTE Subjective: Patient is a 68-year-old male with a PMHx of HTN, CAD s/p CABG, Systolic CHF (EF: 30%), PVD (s/p angioplasty of L popliteal artery and L supe rficial femoral artery 11/2017), Multiple strokes, DM2, ESRD on HD. Patient had developed worsening left limb pain and presented to [facility] on 04/18/2018. Patient was suspected to have a ischemic limb with occlusion of his recently placed stent. Patient underwent angioplasty and stent placement on the same day with Dr. Blank and had improvement of his pain. Patient was transitioned to acute rehabilitation unit under the care of Dr. Rebollar on 04/26/2018. Patient was seen and examined at the bedside. Nursing staff is indicated that patient experiences purple left leg when he stands, patient remains asymptomatic. Denies chest pain, shortness of breath or palpitations. Denies n ausea, vomiting, abdominal pain, constipation, diarrhea or discomfort with urination. At this point, I advised nursing staff to hold off on physical therapy until evaluated by vascular surgery. Objective: Vitals (See below) General: Lying in bed, no acute distress, comfortable, AAOx3 HEENT: NC, AT CVS: RRR, +S1S2 Lungs: Fair air entry b/l, -w/r/r Abdomen: Soft, ND, NT, +BSx4 Extremities: No evidence of edema, - Calf tenderness, pulses remain intact at bilateral lower extremities Assessment and plan: Left lower extremity acute ischemia with ischemic ulcers - likely 2/2 PVD / PAD - s/p angioplasty of L popliteal artery and L superficial femoral artery 11/2017 - Was taken emergently for angiogram and stenting with Dr. Blank on 04/18/2018 - Patient was again taken for angiogram on 05/04/2018 - c/w Plavix - Pain control, anticoagulation, bowel care and PT/OT as per, ARUDr. Rebollar - Vascular surgery, Dr. Blank on consultation HTN - BP moderately controlled - c/w Carvedilol and Amlodipine CAD s/p CABG - c/w Carvedilol and Plavix Compensated Systolic CHF (EF: 30%) - No evidence of exacerbation ESRD on HD - c/w HD as scheduled - Nephrology on consultation Macrocytic anemia - likely 2/2 AOCD - c/w Darbepoetin as per Nephrology Multiple strokes - c/w Plavix DM2 - s/p Levemir - c/w ISS DLP - c/w Rosuvastatin Neuropathy - c/w Gabapentin H/o nonhealing left diabetic foot ulcers - No evidence of acute infection GI prophylaxis - c/w Protonix DVT prophylaxis - c/w Heparin VS,Fishbone, I+O VS, Fishbone, I+O Laboratory Tests 05/05/18 06:17 Calcium Level 8.0 L 05/05/18 06:20 Red Blood Count 3.20 L, Mean Corpuscular Volume 101.9 H, Mean Corpuscular Hemoglobin 31.9, Mean Corpuscular Hemoglobin Concent 31.3 L, Red Cell Distribution Width 14.8 H Vital Signs Date Time Temp Pulse Resp B/P (MAP) Pulse Ox O2 Delivery O2 Flow Rate FiO2 05/05/18 10:00 99.0 87 18 152/68 (96) 98 I&O- Last 24 Hours up to 6 AM 05/05/18 06:00 Intake Total 360 ml Output Total 3000 ml Balance -2640 ml GAYLA EDWARD MD May 05, 2018 14:55
[2018-05-05 20:00] VITALS: BP 134/62
[2018-05-06 06:00] VITALS: BP 163/70
[2018-05-06 07:01] LABS: BASO % 0.4 % (0.0-1.0); EOS # 0.2 10^3/uL (0.0-0.50); EOS % 2.6 % (0.0-3.0); HEMATOCRIT 27.9 % (42.0-52.0); HEMOGLOBIN 8.9 g/dl (13.5-17.5); LYMPH # 0.9 10^3/uL (1.5-4.5); LYMPH % 13.3 % (24.0-44.0); MEAN CORPUSCULAR HGB CONC 31.9 g/dl (32.0-36.5); MEAN CORPUSCULAR VOLUME 100.4 fl (80.0-96.0); MONO # 0.8 10^3/uL (0.0-0.8); MONO % 11.4 % (0.0-5.0); NEUTROPHILS # 4.9 10^3/uL (1.8-7.7); NEUTROPHILS % 71.6 % (36.0-66.0); PLATELET COUNT, AUTOMATED 155 10^3/uL (150-450); RED BLOOD COUNT 2.78 10^6/uL (4.30-6.10); WHITE BLOOD COUNT 6.8 10^3/uL (4.0-10.0)
[2018-05-06 07:31] LABS: ALBUMIN 2.5 GM/DL (3.2-5.2); BILIRUBIN,TOTAL 0.3 MG/DL (0.2-1.0); CALCIUM LEVEL 8.2 MG/DL (8.8-10.2); CREATININE FOR GFR 7.84 MG/DL (0.70-1.30); GLOMERULAR FILTRATION RATE 7.3 (>49); POTASSIUM SERUM 4.3 MEQ/L (3.5-5.1); TOTAL PROTEIN 6.6 GM/DL (6.4-8.2)
[2018-05-06] MEDS: (RENVELA) SEVELAMER **CARBONate** 800 MG TAB PO SCH ×3 (09:42→18:30)
[2018-05-06] MEDS: HumaLOG INSULIN (NovoLOG) PER UNIT SC SCH ×4 (09:42→20:11)
[2018-05-06] MEDS: CLOPIDOGREL 75 MG TAB PO SCH (09:42)
[2018-05-06] MEDS: PANTOPRAZOLE 40MG TAB (PROTONIX) PO SCH (09:42)
[2018-05-06] MEDS: GABAPENTIN 100 MG CAP PO SCH (09:42)
[2018-05-06] MEDS: VITAMIN B COMPLEX/VIT C CAP PO SCH (09:42)
[2018-05-06] MEDS: CETIRIZINE (ZyrTEC) 10 MG TAB PO SCH (09:42)
[2018-05-06] MEDS: CARVedilol 6.25 MG TAB PO SCH (09:42)
[2018-05-06] MEDS: ROSUVASTATIN 10 MG TAB (CRESTOR) PO SCH (09:43)
[2018-05-06] MEDS: HEPARIN SOD (PORCINE) 5000 UNITS/ML VIAL SQ SCH ×2 (09:43→20:39)
[2018-05-06] MEDS: ACETAMINOPHEN 500 MG TAB PO PRN (11:53)
[2018-05-06 14:00] VITALS: BP 150/68
--- NOTE | 2018-05-06 14:31 | IPNPDOC ---
Text Note Date of Service The patient was seen on 05/06/18. NOTE Subjective: Patient is a 68-year-old male with a PMHx of HTN, CAD s/p CABG, Systolic CHF (EF: 30%), PVD (s/p angioplasty of L popliteal artery and L supe rficial femoral artery 11/2017), Multiple strokes, DM2, ESRD on HD. Patient had developed worsening left limb pain and presented to [facility] on 04/18/2018. Patient was suspected to have a ischemic limb with occlusion of his recently placed stent. Patient underwent angioplasty and stent placement on the same day with Dr. Blank and had improvement of his pain. Patient was transitioned to acute rehabilitation unit under the care of Dr. Rebollar on 04/26/2018. Patient was seen and examined at the bedside. Currently patient has no new complaints. Has been working with physical therapy. Denies chest pain, shortness of breath, palpitations. Denies nausea, vomiting, abdominal pain, consultation, diarrhea or discomfort with urination. Patient is not expressing any left leg pain. Objective: Vitals (See below) General: Lying in bed, no acute distress, comfortable, AAOx3 HEENT: NC, AT CVS: RRR, +S1S2 Lungs: Fair air entry b/l, no evidence of wheezing, rales or rhonchi Abdomen: Soft, ND, NT Extremities: No evidence of LE edema, - Calf tenderness, pulses remain intact at bilateral lower extremities Assessment and plan: Left lower extremity acute ischemia with ischemic ulcers - likely 2/2 PVD / PAD - s/p angioplasty of L popliteal artery and L superficial femoral artery 11/2017 - Was taken emergently for angiogram and stenting with Dr. Blank on 04/18/2018 - Patient was again taken for angiogram on 05/04/2018 - c/w Plavix - Pain control, anticoagulation, bowel care and PT/OT as per, [facility], Dr. Rebollar - Vascular surgery, Dr. Blank on consultation - Has been progressing with physical therapy HTN - BP moderately controlled - c/w Carvedilol and Amlodipine - Will increase dose of carvedilol and adjust holding parameters CAD s/p CABG - c/w Carvedilol and Plavix Compensated Systolic CHF (EF: 30%) - No evidence of exacerbation ESRD on HD - c/w HD as scheduled - Nephrology on consultation Macrocytic anemia - likely 2/2 AOCD - c/w Darbepoetin as per Nephrology Multiple strokes - c/w Plavix DM2 - s/p Levemir - c/w ISS DLP - c/w Rosuvastatin Neuropathy - c/w Gabapentin H/o nonhealing left diabetic foot ulcers - No evidence of acute infection GI prophylaxis - c/w Protonix DVT prophylaxis - c/w Heparin Disposition: - Will continue with physical therapy VS,[place], I+O VS, [place], I+O Laboratory Tests 05/06/18 06:35 Red Blood Count 2.78 L, Mean Corpuscular Volume 100.4 H, Mean Corpuscular Hemoglobin 32.0, Mean Corpuscular Hemoglobin Concent 31.9 L, Red Cell Distribution Width 14.6 H, Neutrophils (%) (Auto) 71.6 H, Lymphocytes (%) (Auto) 13.3 L, Monocytes (%) (Auto) 11.4 H, Eosinophils (%) (Auto) 2.6, Basophils (%) ( Auto) 0.4, Neutrophils # (Auto) 4.9, Lymphocytes # (Auto) 0.9 L, Monocytes # (Auto) 0.8, Eosinophils # (Auto) 0.2, Basophils # (Auto) 0.0, Calcium Level 8.2 L, Aspartate Amino Transf (AST/SGOT) 23, Alanine Aminotransferase (ALT/SGPT) 30, Alkaline Phosphatase 134 H, Total Bilirubin 0.3, Total Protein 6.6, Albumin 2.5 L Vital Signs Date Time Temp Pulse Resp B/P (MAP) Pulse Ox O2 Delivery O2 Flow Rate FiO2 05/06/18 06:00 98.9 81 18 163/70 (101) 94 I&O- Last 24 Hours up to 6 AM 05/06/18 06:00 Intake Total 1200 ml Balance 1200 ml GAYLA EDWARD MD May 06, 2018 14:31
[2018-05-06 20:00] VITALS: BP 159/77
[2018-05-06] MEDS: CARVedilol 12.5 MG TAB PO SCH (20:39)
[2018-05-07 06:00] VITALS: BP 168/84
[2018-05-07 07:03] LABS: BASO % 0.4 % (0.0-1.0); EOS # 0.2 10^3/uL (0.0-0.50); EOS % 2.9 % (0.0-3.0); HEMATOCRIT 27.6 % (42.0-52.0); HEMOGLOBIN 8.7 g/dl (13.5-17.5); LYMPH # 1.1 10^3/uL (1.5-4.5); LYMPH % 13.6 % (24.0-44.0); MEAN CORPUSCULAR HEMOGLOBIN 31.6 pg (27.0-33.0); MEAN CORPUSCULAR HGB CONC 31.5 g/dl (32.0-36.5); MEAN CORPUSCULAR VOLUME 100.4 fl (80.0-96.0); MONO # 0.7 10^3/uL (0.0-0.8); MONO % 9.2 % (0.0-5.0); NEUTROPHILS # 5.9 10^3/uL (1.8-7.7); NEUTROPHILS % 73.4 % (36.0-66.0); PLATELET COUNT, AUTOMATED 162 10^3/uL (150-450); RED BLOOD COUNT 2.75 10^6/uL (4.30-6.10)
[2018-05-07 07:44] LABS: ALBUMIN 2.5 GM/DL (3.2-5.2); BILIRUBIN,TOTAL 0.3 MG/DL (0.2-1.0); CALCIUM LEVEL 8.5 MG/DL (8.8-10.2); CREATININE FOR GFR 9.6 MG/DL (0.70-1.30); GLOMERULAR FILTRATION RATE 5.8 (>49); POTASSIUM SERUM 4.6 MEQ/L (3.5-5.1); TOTAL PROTEIN 6.7 GM/DL (6.4-8.2)
[2018-05-07] MEDS: ROSUVASTATIN 10 MG TAB (CRESTOR) PO SCH (08:11)
[2018-05-07] MEDS: (RENVELA) SEVELAMER **CARBONate** 800 MG TAB PO SCH ×3 (08:11→18:07)
[2018-05-07] MEDS: HEPARIN SOD (PORCINE) 5000 UNITS/ML VIAL SQ SCH ×2 (08:11→20:56)
[2018-05-07] MEDS: CETIRIZINE (ZyrTEC) 10 MG TAB PO SCH (08:12)
[2018-05-07] MEDS: VITAMIN B COMPLEX/VIT C CAP PO SCH (08:12)
[2018-05-07] MEDS: PANTOPRAZOLE 40MG TAB (PROTONIX) PO SCH (08:12)
[2018-05-07] MEDS: GABAPENTIN 100 MG CAP PO SCH (08:12)
[2018-05-07] MEDS: CLOPIDOGREL 75 MG TAB PO SCH (08:12)
[2018-05-07] MEDS: CARVedilol 12.5 MG TAB PO SCH ×2 (08:12→20:56)
[2018-05-07] MEDS: HumaLOG INSULIN (NovoLOG) PER UNIT SC SCH ×4 (08:12→20:49)
[2018-05-07] MEDS ORDERED: HEPARIN 1,000 UNITS/ML 10ML VIAL (FOR RADIOLOGY& DIALYSIS ONLY) IV ONE (11:30)
--- NOTE | 2018-05-07 13:21 | IPNPDOC ---
Text Note Date of Service The patient was seen on 05/07/18. NOTE Subjective: Patient is a 68-year-old male with a PMHx of HTN, CAD s/p CABG, Systolic CHF (EF: 30%), PVD (s/p angioplasty of L popliteal artery and L super ficial femoral artery 11/2017), Multiple strokes, DM2, ESRD on HD. Patient had developed worsening left limb pain and presented to [facility] on 04/18/2018. Patient was suspected to have a ischemic limb with occlusion of his recently placed stent. Patient underwent angioplasty and stent placement on the same day with Dr. Blank and had improvement of his pain. Patient was transitioned to acute rehabilitation unit under the care of Dr. Rebollar on 04/26/2018. Patient was seen and examined at the bedside. . Currently he has no new complaints. Denies any nausea or vomiting. Denies constipation or diarrhea. Denies abdominal pain, chest pain, shortness of breath, palpitations or cough. Objective: Vitals (See below) General: Lying in bed, no acute distress, comfortable, AAOx3 HEENT: NC, AT CVS: RRR, +S1S2 Lungs: Air entry is fair bilaterally without evidence of wheezing, rhonchi or rales Abdomen: Remains soft without distention or tenderness Extremities: Lower extremities are without any evidence of edema, - Calf tenderness, pulses remain intact at bilateral lower extremities Assessment and plan: Left lower extremity acute ischemia with ischemic ulcers - likely 2/2 PVD / PAD - s/p angioplasty of L popliteal artery and L superficial femoral artery 11/2017 - Was taken emergently for angiogram and stenting with Dr. Blank on 04/18/2018 - Patient was again taken for angiogram on 05/04/2018 - c/w Plavix - Pain control, anticoagulation, bowel care and PT/OT as per, ARUDr. Rebollar - Vascular surgery, Dr. Blank on consultation - c/w PT - has been progressing HTN - BP elevated this morning; will re-evaluate this afternoon - c/w Carvedilol and Amlodipine - c/w Carvedilol and adjust holding parameters CAD s/p CABG - c/w Carvedilol and Plavix Compensated Systolic CHF (EF: 30%) - No evidence of exacerbation ESRD on HD - c/w HD as scheduled - Nephrology on consultation Macrocytic anemia - likely 2/2 AOCD - c/w Darbepoetin as per Nephrology Multiple strokes - c/w Plavix DM2 - s/p Levemir - c/w ISS DLP - c/w Rosuvastatin Neuropathy - c/w Gabapentin H/o nonhealing left diabetic foot ulcers - No evidence of acute infection GI prophylaxis - c/w Protonix DVT prophylaxis - c/w Heparin Disposition: - Will continue with physical therapy - Will adjust blood pressure medications based on afternoon blood pressure readings VS,Fishbone, I+O VS, Fishbone, I+O Laboratory Tests 05/07/18 06:31 Red Blood Count 2.75 L, Mean Corpuscular Volume 100.4 H, Mean Corpuscular Hemoglobin 31.6, Mean Corpuscular Hemoglobin Concent 31.5 L, Red Cell Distribution Width 14.7 H, Neutrophils (%) (Auto) 73.4 H, Lymphocytes (%) (Auto) 13.6 L, Monocytes (%) (Auto) 9.2 H, Eosinophils (%) (Auto) 2.9, Basophils (%) (Auto) 0.4, Neutrophils # (Auto) 5.9, Lymphocytes # (Auto) 1.1 L, Monocytes # (Auto) 0.7, Eosinophils # (Auto) 0.2, Basophils # (Auto) 0.0, Calcium Level 8.5 L, Aspartate Amino Transf (AST/SGOT) 18, Alanine Aminotransferase (ALT/SGPT) 26, Alkaline Phosphatase 120 H, Total Bilirubin 0.3, Total Protein 6.7, Albumin 2.5 L Vital Signs Date Time Temp Pulse Resp B/P (MAP) Pulse Ox O2 Delivery O2 Flow Rate FiO2 05/07/18 08:12 77 172/75 05/07/18 06:00 98.7 19 94 I&O- Last 24 Hours up to 6 AM 05/07/18 06:00 Intake Total 1730 ml Output Total 0 ml Balance 1730 ml GAYLA EDWARD MD May 07, 2018 13:21
--- NOTE | 2018-05-07 14:13 | IPNPDOC ---
PM&R Progress Note DATE OF SERVICE: May 07, 2018 Data Transcriber Progress Note Subjective: Patient seen today reports he feels well, denies trouble breathing, states his left foot does not hurt or feel cold. REVIEW OF SYSTEMS: The following is a completed review of systems and has been reviewed. Review of systems otherwise unremarkable. PAIN: Patient self reports LLE pain EYES: Negative for recent vision changes EARS, NOSE, & THROAT:denies throat/ear pain, no dysphagia CARDIOVASCULAR: denies chest pain or palpitations PULMONARY: Negative. Denies shortness of breath GASTROINTESTINAL: Negative for diarrhea/constipation GENITOURINARY: Negative for dysuria MUSCULOSKELETAL: LLE weakness HEMATOLOGICAL: + anemia SKIN: LLE incisions PSYCHIATRIC: Unremarkable All other review of systems found to be negative. PHYSICAL EXAMINATION: VITAL SIGNS: Please see below. GENERAL: Pleasant and cooperative. No acute distress. HEENT: PERRL. Extraocular movements intact. Clear conjunctiva CARDIOVASCULAR: Regular rate and rhythm. No murmurs, rubs, or gallops LUNGS: Clear to auscultation bilaterally. No wheezes. No rhonchi ABDOMEN: Soft, nontender, nondistended. Positive bowel sounds. Normal active bowel sounds NEUROLOGICAL: Alert and oriented times three. Cranial nerves II through XII grossly intact. Sensation grossly intact except diminished in bilateral feet EXTREMITIES: 5\5 strength bilateral upper extremities. 5\5 strength bilat lower extremity. SKIN: left D1 and lateral forefoot ulcers, right D1 punctate hyperpigmented lesions ASSESSMENT:68-year-old M with past medical history of PVD, ESRD, diastolic CHF who presents status post left lower extremity ischemia with angioplasty PLAN: 1. Rehab: PT/OT, maintain PWB, ambulating further with a RW 2. Neuro: pmh multiple strokes, stable- c/u statin therapy and BP meds 3. CArdio: pmh chronic systolic CHF with EF 30%, CAD s/p CABG- euvolemic, monitor for fluid overload- on dialysis, medicine consulted -PVD with angioplasty of his left popliteal artery and left superficial femoral artery in November 2017, s/p angioplasty 04/18/18- consulted Dr. Blank and request made to assess new right toe lesion, repeat angioplasty 05/04/18 -pmh HTN, carvedilol dose increased per medicine, recs appreciated 4. Resp: stable, encourage incentive spirometry 5. Endo: DM c/u insulin coverage-stable 6. Renal: ESRD-renal consulted, HD M/W/F, Aranesp per renal for anemia of chroni c disease, recs appreciated 7. Rheum: pmh gout- colchicine prn-stable 8. Pain: Gabapentin, oxycodone, tylenol 9. DVT ppx: c/u heparin 10. GI ppx: protonix 11. SKin: cover left foots wounds, appear dry, monitor for infection, right D1 toe with punctate ischemic ulcers 12. Dispo: 05/09/18 to home with , progressing towards goals Allergies Coded Allergies: aspirin (Verified Allergy, Severe, CLOSES AIRWAY, 05/02/18) Vital Signs Vital Signs Date Time Temp Pulse Resp B/P (MAP) Pulse Ox O2 Delivery O2 Flow Rate FiO2 05/07/18 08:12 77 172/75 05/07/18 06:00 98.7 19 94 Laboratory Data CBC/BMP Laboratory Tests 05/07/18 06:31 Red Blood Count 2.75 L, Mean Corpuscular Volume 100.4 H, Mean Corpuscular Hemoglobin 31.6, Mean Corpuscular Hemoglobin Concent 31.5 L, Red Cell Distribution Width 14.7 H, Neutrophils (%) (Auto) 73.4 H, Lymphocytes (%) (Auto) 13.6 L, Monocytes (%) (Auto) 9.2 H, Eosinophils (%) (Auto) 2.9, Basophils (%) (Auto) 0.4, Neutrophils # (Auto) 5.9, Lymphocytes # (Auto) 1.1 L, Monocytes # (Auto) 0.7, Eosinophils # (Auto) 0.2, Basophils # (Auto) 0.0, Calcium Level 8.5 L, Aspartate Amino Transf (AST/SGOT) 18, Alanine Aminotransferase (ALT/SGPT) 26, Alkaline Phosphatase 120 H, Total Bilirubin 0.3, Total Protein 6.7, Albumin 2.5 L Labs 24H Laboratory Tests 2 05/06/18 17:24: Bedside Glucose (Misc Panel) 156H 05/06/18 19:59: Bedside Glucose (Misc Panel) 178H 05/07/18 06:31: Immature Granulocyte % (Auto) 0.5, White Blood Count 8.0, Red Blood Count 2.75L, Hemoglobin 8.7L, Hematocrit 27.6L, Mean Corpuscular Volume 100.4H, Mean Corpuscular Hemoglobin 31.6, Mean Corpuscular Hemoglobin Concent 31.5L, Red Cell Distribution Width 14.7H, Platelet Count 162, Neutrophils (%) (Auto) 73.4H, Lymphocytes (%) (Auto) 13.6L, Monocytes (%) (Auto) 9.2H, Eosinophils (%) (Auto) 2.9, Basophils (%) (Auto) 0.4, Neutrophils # (Auto) 5.9, Lymphocytes # (Auto) 1.1L, Monocytes # (Auto) 0.7, Eosinophils # (Auto) 0.2, Basophils # (Auto) 0.0, Nucleated Red Blood Cells % (auto) 0.0, Anion Gap 11, Glomerular Filtration Rate 5.8L, Blood Urea Nitrogen 69H, Creatinine 9.60*H, Sodium Level 138, Potassium Level 4.6, Chloride Level 103, Carbon Dioxide Level 24, Calcium Level 8.5L, Aspartate Amino Transf (AST/SGOT) 18, Alanine Aminotransferase (ALT/SGPT) 26, Alkaline Phosphatase 120H, Total Bilirubin 0.3, Total Protein 6.7, Albumin 2.5L, Albumin/Globulin Ratio 0.60L 05/07/18 11:36: Bedside Glucose (Misc Panel) 94 Current Medications Current Medications Current Medications Acetaminophen (Tylenol Tab) 1,000 mg Q8HP PRN PO PAIN / FEVER Last administered on 05/06/18at 11:53; Start 04/26/18 at 18:45 Amlodipine Besylate (Norvasc) 2.5 mg DAILY PO Last administered on 05/01/18at 08:40; Start 05/01/18 at 09:00; Stop 05/01/18 at 18:20; Status DC Amlodipine Besylate (Norvasc) 2.5 mg QHS PO ; Start 05/03/18 at 21:00; Stop 05/03/18 at 21:00; Status DC Amlodipine Besylate (Norvasc) 2.5 mg QHS PO Last administered on 05/06/18at 20:38; Start 05/04/18 at 21:00 Amlodipine Besylate (Norvasc) 5 mg QHS PO Last administered on 05/03/18at 21:27; Start 05/03/18 at 21:00; Stop 05/04/18 at 11:04; Status DC Amlodipine Besylate (Norvasc) 10 mg DAILY PO Last administered on 05/02/18at 09:08; Start 05/02/18 at 09:00; Stop 05/02/18 at 10:05; Status DC Amlodipine Besylate (Norvasc) 10 mg QHS PO ; Start 05/04/18 at 21:00; Stop 05/04/18 at 21:00; Status DC Carvedilol (COReg) 6.25 mg BID PO Last administered on 05/06/18at 09:42; Start 04/26/18 at 21:00; Stop 05/06/18 at 14:32; Status DC Carvedilol (COReg) 12.5 mg BID PO Last administered on 05/07/18at 08:12; Start 05/06/18 at 21:00 Cetirizine HCl (ZyrTEC) 10 mg DAILY PO Last administered on 05/07/18at 08:12; Start 04/27/18 at 09:00 Clopidogrel Bisulfate (PLAVix) 75 mg DAILY PO Last administered on 05/07/18at 08:12; Start 04/27/18 at 09:00 Darbepoetin Donny (Aranesp (Dialysis Use)) 100 mcg HD IV Last administered on 04/30/18at 15:55; Start 04/30/18 at 13:45 Dextrose (Dextrose 50%) 25 ml ASDIRECTED PRN IV SEE LABEL COMMENTS; Start 04/26/18 at 18:45 Gabapentin (Neurontin) 100 mg DAILY PO Last administered on 05/07/18at 08:12; Start 04/27/18 at 09:00 Glucagon (Glucagon) 1 mg ASDIRECTED PRN SC SEE LABEL COMMENTS; Start 04/26/18 at 18:45 Glucose (Glucose) 16 GM ASDIRECTED PRN PO SEE LABEL COMMENTS; Start 04/26/18 at 18:45 Heparin Sodium (Porcine) (Heparin) 5,000 units Q12H SQ Last administered on 05/07/18at 08:11; Start 04/26/18 at 21:00 Home Med (Med Rec Complete!) ASDIRECTED XX ; Start 04/26/18 at 20:30; Stop 04/26/18 at 20:56; Status DC Insulin Human Lispro (HumaLOG INSULIN) SEE PROTOCOL TABLE AC SC Last administered on 05/07/18 08:12; Start 04/27/18 at 07:30 Insulin Human Lispro (HumaLOG INSULIN) SEE PROTOCOL TABLE QHS SC Last administered on 05/01/18at 20:41; Start 04/26/18 at 21:00 Lidocaine (Lidoderm Patch) 1 patch DAILY TD Last administered on 05/01/18 08:37; Start 04/27/18 at 09:00; Stop 05/01/18 at 20:26; Status DC Miscellaneous (Unresolved Clarification Entry) SEE LABEL COMMENTS DAILY XX ; Start 05/02/18 at 09:00; Stop 05/03/18 at 13:50; Status DC Non-Formulary Medication ( See Comment Field Below ) REMOVE LIDODERM PATCH DAILY@21 XX Last administered on 04/30/18at 21:00; Start 04/26/18 at 21:00; Stop 05/01/18 at 20:26; Status DC Ondansetron HCl (Zofran) 4 mg Q6HP PRN PO NAUSEA OR VOMITING; Start 04/26/18 at 18:45 Oxycodone HCl (Roxicodone, Oxyir) 5 mg Q4HP PRN PO PAIN; Start 04/26/18 at 18:45; Stop 05/03/18 at 13:49; Status DC Pantoprazole Sodium (Protonix) 40 mg DAILY PO Last administered on 05/07/18 08:12; Start 04/27/18 at 09:00 Rosuvastatin Calcium (Crestor) 20 mg DAILY PO Last administered on 05/07/18 08:11; Start 04/27/18 at 09:00 Sevelamer Carbonate (Renvela) 1,600 mg WM PO Last administered on 05/07/18 12:12; Start 04/27/18 at 08:00 Vitamin B Complex/ Vitamin C (Therapeutic B Complex w/C) 1 cap DAILY PO Last administered on 05/07/18 08:12; Start 04/27/18 at 09:00 SHANNAN OLMOS MD May 07, 2018 14:12
[2018-05-07] MEDS: ACETAMINOPHEN 500 MG TAB PO PRN (16:03)
[2018-05-07 17:45] VITALS: BP 175/74
[2018-05-07 18:11] VITALS: BP 142/78
[2018-05-07 20:00] VITALS: BP 138/70
[2018-05-08 06:00] VITALS: BP 170/76
[2018-05-08 07:25] LABS: BASO # 0.1 10^3/uL (0.0-0.2); BASO % 0.6 % (0.0-1.0); EOS # 0.2 10^3/uL (0.0-0.50); EOS % 2.3 % (0.0-3.0); HEMATOCRIT 31.2 % (42.0-52.0); LYMPH # 1.1 10^3/uL (1.5-4.5); LYMPH % 13.1 % (24.0-44.0); MEAN CORPUSCULAR HEMOGLOBIN 31.3 pg (27.0-33.0); MEAN CORPUSCULAR HGB CONC 32.1 g/dl (32.0-36.5); MEAN CORPUSCULAR VOLUME 97.5 fl (80.0-96.0); MONO # 0.7 10^3/uL (0.0-0.8); MONO % 7.9 % (0.0-5.0); NEUTROPHILS # 6.4 10^3/uL (1.8-7.7); NEUTROPHILS % 75.7 % (36.0-66.0); PLATELET COUNT, AUTOMATED 190 10^3/uL (150-450); WHITE BLOOD COUNT 8.4 10^3/uL (4.0-10.0)
[2018-05-08 08:01] LABS: ALBUMIN 2.7 GM/DL (3.2-5.2); BILIRUBIN,TOTAL 0.3 MG/DL (0.2-1.0); CALCIUM LEVEL 8.9 MG/DL (8.8-10.2); CREATININE FOR GFR 5.93 MG/DL (0.70-1.30); GLOMERULAR FILTRATION RATE 10.1 (>49); POTASSIUM SERUM 4.2 MEQ/L (3.5-5.1); TOTAL PROTEIN 7.2 GM/DL (6.4-8.2)
[2018-05-08] MEDS: HEPARIN SOD (PORCINE) 5000 UNITS/ML VIAL SQ SCH ×2 (08:23→20:50)
[2018-05-08] MEDS: HumaLOG INSULIN (NovoLOG) PER UNIT SC SCH ×4 (08:24→20:49)
[2018-05-08] MEDS: ROSUVASTATIN 10 MG TAB (CRESTOR) PO SCH (08:25)
[2018-05-08] MEDS: CETIRIZINE (ZyrTEC) 10 MG TAB PO SCH (08:25)
[2018-05-08] MEDS: CLOPIDOGREL 75 MG TAB PO SCH (08:25)
[2018-05-08] MEDS: VITAMIN B COMPLEX/VIT C CAP PO SCH (08:25)
[2018-05-08] MEDS: (RENVELA) SEVELAMER **CARBONate** 800 MG TAB PO SCH ×3 (08:25→17:43)
[2018-05-08] MEDS: GABAPENTIN 100 MG CAP PO SCH (08:25)
[2018-05-08] MEDS: CARVedilol 12.5 MG TAB PO SCH ×2 (08:25→20:51)
[2018-05-08] MEDS: PANTOPRAZOLE 40MG TAB (PROTONIX) PO SCH (08:25)
--- NOTE | 2018-05-08 09:35 | IPN ---
DATE OF VISIT: 05/07/2018 Mr. Dykes is seen this morning on his bedside. He is lying in the bed without any acute distress. He reports that his left foot is feeling better now and denies any fever or chills. On physical exam, temperature 98.7 degrees Fahrenheit, heart rate 78 per minute and respiratory rate 18 per minute. Blood pressure 168/84 mmHg and oxygen saturation 94% on room air. Head is atraumatic. Neck is supple and jugular venous distention (JVD) is mildly elevated. He has no oral thrush or ulcers. Heart sounds are regular and lungs sound clear to auscultation. Abdomen soft and nontender. Bowel sounds are normal. Extremities have no cyanosis or clubbing. Small area of skin necrosis on the left big toe and heel is unchanged. There is no sign of cellulitis. Today's labs show WBC count 8.0, hemoglobin 8.7 and hematocrit 27.6. Sodium 138, potassium 4.6, CO2 24, BUN 69 and creatinine 9.6. PROBLEMS: 1. End-stage renal disease. Patient is going to be dialyzed this afternoon. His electrolytes are within normal range. 2. Congestive heart failure. He does have history of hypoxemia and congestive heart failure in the past. He also has history of chronic pleural effusion, for which he has required a PleurX catheter in the past. At present, his volume status is reasonable and will try to remove about 3 liters of fluid today with dialysis. 3. Hypertension. Blood pressure is slightly high today but likely to improve with dialysis and fluid removal. No changes in medications are being made. 4. Peripheral vascular disease. Patient has had angioplasty of his left lower extremity and is now feeling much better.
--- NOTE | 2018-05-08 10:32 | IPNPDOC ---
PM&R Progress Note DATE OF SERVICE: May 08, 2018 Dockworker Progress Note Subjective: Patient seen with his who is in for family training, no complaints. REVIEW OF SYSTEMS: The following is a completed review of systems and has been reviewed. Review of systems otherwise unremarkable. PAIN: Patient self reports LLE pain EYES: Negative for recent vision changes EARS, NOSE, & THROAT:denies throat/ear pain, no dysphagia CARDIOVASCULAR: denies chest pain or palpitations PULMONARY: Negative. Denies shortness of breath GASTROINTESTINAL: Negative for diarrhea/constipation GENITOURINARY: Negative for dysuria MUSCULOSKELETAL: LLE weakness HEMATOLOGICAL: + anemia SKIN: LLE incisions PSYCHIATRIC: Unremarkable All other review of systems found to be negative. PHYSICAL EXAMINATION: VITAL SIGNS: Please see below. GENERAL: Pleasant and cooperative. No acute distress. HEENT: PERRL. Extraocular movements intact. Clear conjunctiva CARDIOVASCULAR: Regular rate and rhythm. No murmurs, rubs, or gallops LUNGS: Clear to auscultation bilaterally. No wheezes. No rhonchi ABDOMEN: Soft, nontender, nondistended. Positive bowel sounds. Normal active bowel sounds NEUROLOGICAL: Alert and oriented times three. Cranial nerves II through XII grossly intact. Sensation grossly intact except diminished in bilateral feet EXTREMITIES: 5\5 strength bilateral upper extremities. 5\5 strength bilat lower extremity. SKIN: left D1 and lateral forefoot ulcers, right D1 punctate hyperpigmented lesions ASSESSMENT:68-year-old M with past medical history of PVD, ESRD, diastolic CHF who presents status post left lower extremity ischemia with angioplasty PLAN: 1. Rehab: PT/OT, maintain PWB, ambulating further with a RW 2. Neuro: pmh multiple strokes, stable- c/u statin therapy and BP meds 3. CArdio: pmh chronic systolic CHF with EF 30%, CAD s/p CABG- euvolemic, monitor for fluid overload- on dialysis, medicine consulted -PVD with angioplasty of his left popliteal artery and left superficial femoral artery in November 2017, s/p angioplasty 04/18/18- consulted Dr. Blank and request made to assess new right toe lesion, repeat angioplasty 05/04/18 -pmh HTN, carvedilol dose increased per medicine, recs appreciated 4. Resp: stable, encourage incentive spirometry 5. Endo: DM c/u insulin coverage-stable 6. Renal: ESRD-renal consulted, HD M/W/F, Aranesp per renal for anemia of chronic disease, recs appreciated 7. Rheum: pmh gout- colchicine prn-stable 8. Pain: Gabapentin, oxycodone, tylenol 9. DVT ppx: c/u heparin 10. GI ppx: protonix 11. SKin: cover left foots wounds, appear dry, monitor for infection, right D1 toe with punctate ischemic ulcers-will schedule outpatient wound care 12. Dispo: 05/10/18 to home with , progressing towards goals Allergies Coded Allergies: aspirin (Verified Allergy, Severe, CLOSES AIRWAY, 05/02/18) Vital Signs Vital Signs Date Time Temp Pulse Resp B/P (MAP) Pulse Ox O2 Delivery O2 Flow Rate FiO2 05/08/18 08:25 83 170/76 05/08/18 06:00 97.8 19 95 Laboratory Data CBC/BMP Laboratory Tests 05/08/18 06:59 Red Blood Count 3.20 L, Mean Corpuscular Volume 97.5 H, Mean Corpuscular Hemoglobin 31.3, Mean Corpuscular Hemoglobin Concent 32.1, Red Cell Distribution Width 14.7 H, Neutrophils (%) (Auto) 75.7 H, Lymphocytes (%) (Auto) 13.1 L, Monocytes (%) (Auto) 7.9 H, Eosinophils (%) (Auto) 2.3, Basophils (%) (Auto) 0.6, Neutrophils # (Auto) 6.4, Lymphocytes # (Auto) 1.1 L, Monocytes # (Auto) 0.7, Eosinophils # (Auto) 0.2, Basophils # (Auto) 0.1, Calcium Level 8.9, Aspartate Amino Transf (AST/SGOT) 17, Alanine Aminotransferase (ALT/SGPT) 23, Alkaline Phosphatase 117, Total Bilirubin 0.3, Total Protein 7.2, Albumin 2.7 L Labs 24H Laboratory Tests 2 05/07/18 11:36: Bedside Glucose (Misc Panel) 94 05/07/18 17:51: Bedside Glucose (Misc Panel) 165H 05/07/18 20:30: Bedside Glucose (Misc Panel) 165H 05/08/18 06:59: Immature Granulocyte % (Auto) 0.4, White Blood Count 8.4, Red Blood Count 3.20L, Hemoglobin 10.0L, Hematocrit 31.2L, Mean Corpuscular Volume 97.5H, Mean Corpuscular Hemoglobin 31.3, Mean Corpuscular Hemoglobin Concent 32.1, Red Cell Distribution Width 14.7H, Platelet Count 190, Neutrophils (%) (Auto) 75.7H, Lymphocytes (%) (Auto) 13.1L, Monocytes (%) (Auto) 7.9H, Eosinophils (%) (Auto) 2.3, Basophils (%) (Auto) 0.6, Neutrophils # (Auto) 6.4, Lymphocytes # (Auto) 1.1L, Monocytes # (Auto) 0.7, Eosinophils # (Auto) 0.2, Basophils # (Auto) 0.1, Nucleated Red Blood Cells % (auto) 0.0, Anion Gap 9, Glomerular Filtration Rate 10.1L, Blood Urea Nitrogen 34#H, Creatinine 5.93H, Sodium Level 137, Potassium Level 4.2, Chloride Level 99, Carbon Dioxide Level 29, Calcium Level 8.9, Aspartate Amino Transf (AST/SGOT) 17, Alanine Aminotransferase (ALT/SGPT) 23, Alkaline Phosphatase 117, Total Bilirubin 0.3, Total Protein 7.2, Albumin 2.7L, Albumin/Globulin Ratio 0.60L Current Medications Current Medications Current Medications Acetaminophen (Tylenol Tab) 1,000 mg Q8HP PRN PO PAIN / FEVER Last administered on 05/07/18at 16:03; Start 04/26/18 at 18:45 Amlodipine Besylate (Norvasc) 2.5 mg DAILY PO Last administered on 05/01/18at 08:40; Start 05/01/18 at 09:00; Stop 05/01/18 at 18:20; Status DC Amlodipine Besylate (Norvasc) 2.5 mg QHS PO ; Start 05/03/18 at 21:00; Stop 05/03/18 at 21:00; Status DC Amlodipine Besylate (Norvasc) 2.5 mg QHS PO Last administered on 05/07/18at 20:55; Start 05/04/18 at 21:00 Amlodipine Besylate (Norvasc) 5 mg QHS PO Last administered on 05/03/18at 21:27; Start 05/03/18 at 21:00; Stop 05/04/18 at 11:04; Status DC Amlodipine Besylate (Norvasc) 10 mg DAILY PO Last administered on 05/02/18 09:08; Start 05/02/18 at 09:00; Stop 05/02/18 at 10:05; Status DC Amlodipine Besylate (Norvasc) 10 mg QHS PO ; Start 05/04/18 at 21:00; Stop 05/04/18 at 21:00; Status DC Carvedilol (COReg) 6.25 mg BID PO Last administered on 05/06/18at 09:42; Start 04/26/18 at 21:00; Stop 05/06/18 at 14:32; Status DC Carvedilol (COReg) 12.5 mg BID PO Last administered on 05/08/18 08:25; Start 05/06/18 at 21:00 Cetirizine HCl (ZyrTEC) 10 mg DAILY PO Last administered on 05/08/18 08:25; Start 04/27/18 at 09:00 Clopidogrel Bisulfate (PLAVix) 75 mg DAILY PO Last administered on 05/08/18 08:25; Start 04/27/18 at 09:00 Darbepoetin Donny (Aranesp (Dialysis Use)) 100 mcg HD IV Last administered on 04/30/18at 15:55; Start 04/30/18 at 13:45 Dextrose (Dextrose 50%) 25 ml ASDIRECTED PRN IV SEE LABEL COMMENTS; Start 04/26/18 at 18:45 Gabapentin (Neurontin) 100 mg DAILY PO Last administered on 05/08/18 08:25; Start 04/27/18 at 09:00 Glucagon (Glucagon) 1 mg ASDIRECTED PRN SC SEE LABEL COMMENTS; Start 04/26/18 at 18:45 Glucose (Glucose) 16 GM ASDIRECTED PRN PO SEE LABEL COMMENTS; Start 04/26/18 at 18:45 Heparin Sodium (Porcine) (Heparin) 5,000 units Q12H SQ Last administered on 05/08/18 08:23; Start 04/26/18 at 21:00 Home Med (Med Rec Complete!) ASDIRECTED XX ; Start 04/26/18 at 20:30; Stop 04/26/18 at 20:56; Status DC Insulin Human Lispro (HumaLOG INSULIN) SEE PROTOCOL TABLE AC SC Last administered on 05/08/18at 08:24; Start 04/27/18 at 07:30 Insulin Human Lispro (HumaLOG INSULIN) SEE PROTOCOL TABLE QHS SC Last administered on 05/01/18at 20:41; Start 04/26/18 at 21:00 Lidocaine (Lidoderm Patch) 1 patch DAILY TD Last administered on 05/01/18at 08:37; Start 04/27/18 at 09:00; Stop 05/01/18 at 20:26; Status DC Miscellaneous (Unresolved Clarification Entry) SEE LABEL COMMENTS DAILY XX ; Start 05/02/18 at 09:00; Stop 05/03/18 at 13:50; Status DC Non-Formulary Medication ( See Comment Field Below ) REMOVE LIDODERM PATCH DAILY@21 XX Last administered on 04/30/18at 21:00; Start 04/26/18 at 21:00; Stop 05/01/18 at 20:26; Status DC Ondansetron HCl (Zofran) 4 mg Q6HP PRN PO NAUSEA OR VOMITING; Start 04/26/18 at 18:45 Oxycodone HCl (Roxicodone, Oxyir) 5 mg Q4HP PRN PO PAIN; Start 04/26/18 at 18:45; Stop 05/03/18 at 13:49; Status DC Pantoprazole Sodium (Protonix) 40 mg DAILY PO Last administered on 05/08/18 08:25; Start 04/27/18 at 09:00 Rosuvastatin Calcium (Crestor) 20 mg DAILY PO Last administered on 05/08/18 08:25; Start 04/27/18 at 09:00 Sevelamer Carbonate (Renvela) 1,600 mg WM PO Last administered on 05/08/18 08:25; Start 04/27/18 at 08:00 Vitamin B Complex/ Vitamin C (Therapeutic B Complex w/C) 1 cap DAILY PO Last administered on 05/08/18 08:25; Start 04/27/18 at 09:00 SHANNAN OLMOS MD May 08, 2018 10:32
[2018-05-08 14:00] VITALS: BP 140/60
[2018-05-08] MEDS: ACETAMINOPHEN 500 MG TAB PO PRN (15:43)
--- NOTE | 2018-05-08 16:29 | IPNPDOC ---
Subjective Date Seen The patient was seen on 05/08/18. Subjective Chief Complaint/HPI Patient seen and examined at the bedside. No acute overnight events noted. Objective Physical Examination General Exam: Positive: Alert, Cooperative, No Acute Distress ENT Exam: Positive: Atraumatic, Mucous membr. moist/pink Chest Exam: Positive: Diminished Heart Exam: Positive: Rate Normal, Normal S1, Normal S2 Abdomen Exam: Positive: Soft; Negative: Tenderness Extremity Exam: Positive: Other (left big toe and heel noted to have area of necrosis. No superficial drainage noted.); Negative: Tenderness Assessment /Plan Plan/VTE VTE Prophylaxis Ordered?: Yes Plan Left lower extremity acute ischemia with ischemic ulcers - likely 2/2 PVD / PAD s/p angioplasty of L popliteal artery and L superficial femoral artery 11/2017 Was taken emergently for angiogram and stenting with Dr. Blank on 04/18/2018 Patient was again taken for angiogram on 05/04/2018 c/w Plavix Pain control, anticoagulation, bowel care and PT/OT as per, Dr. Smooth SANDOVAL Vascular surgery, Dr. Blank on consultation Cont PT HTN Cont Carvedilol and Amlodipine CAD s/p CABG Cont Carvedilol, Statin, and Plavix Compensated Systolic CHF (EF: 30%) No evidence of exacerbation ESRD on HD c/w HD as scheduled Nephrology on consultation Macrocytic anemia - likely 2/2 AOCD c/w Darbepoetin as per Nephrology Multiple CVA's Cont Plavix DM2 Cont ISS DLP Cont Rosuvastatin Neuropathy Cont Gabapentin H/o nonhealing left diabetic foot ulcers GI prophylaxis Protonix DVT prophylaxis Heparin SC Disposition: Continue with physical therapy VS, I&O, 24H, Bin Vital Signs/I&O Vital Signs Date Time Temp Pulse Resp B/P (MAP) Pulse Ox O2 Delivery O2 Flow Rate FiO2 05/08/18 14:00 98.2 75 20 140/60 (86) 96 I&O- Last 24 Hours up to 6 AM 05/08/18 06:00 Intake Total 820 ml Output Total 3000 ml Balance -2180 ml Laboratory Data 24H LABS Laboratory Tests 2 05/07/18 17:51: Bedside Glucose (Misc Panel) 165H 05/07/18 20:30: Bedside Glucose (Misc Panel) 165H 05/08/18 06:59: Immature Granulocyte % (Auto) 0.4, White Blood Count 8.4, Red Blood Count 3.20L, Hemoglobin 10.0L, Hematocrit 31.2L, Mean Corpuscular Volume 97.5H, Mean Corpuscular Hemoglobin 31.3, Mean Corpuscular Hemoglobin Concent 32.1, Red Cell Distribution Width 14.7H, Platelet Count 190, Neutrophils (%) (Auto) 75.7H, Lymphocytes (%) (Auto) 13.1L, Monocytes (%) (Auto) 7.9H, Eosinophils (%) (Auto) 2.3, Basophils (%) (Auto) 0.6, Neutrophils # (Auto) 6.4, Lymphocytes # (Auto) 1.1L, Monocytes # (Auto) 0.7, Eosinophils # (Auto) 0.2, Basophils # (Auto) 0.1, Nucleated Red Blood Cells % (auto) 0.0, Anion Gap 9, Glomerular Filtration Rate 10.1L, Blood Urea Nitrogen 34#H, Creatinine 5.93H, Sodium Level 137, Potassium Level 4.2, Chloride Level 99, Carbon Dioxide Level 29, Calcium Level 8.9, Aspartate Amino Transf (AST/SGOT) 17, Alanine Aminotransferase (ALT/SGPT) 23, Alkaline Phosphatase 117, Total Bilirubin 0.3, Total Protein 7.2, Albumin 2.7L, Albumin/Globulin Ratio 0.60L 05/08/18 11:41: Bedside Glucose (Misc Panel) 133H CBC/BMP Laboratory Tests 05/08/18 06:59 Red Blood Count 3.20 L, Mean Corpuscular Volume 97.5 H, Mean Corpuscular H emoglobin 31.3, Mean Corpuscular Hemoglobin Concent 32.1, Red Cell Distribution Width 14.7 H, Neutrophils (%) (Auto) 75.7 H, Lymphocytes (%) (Auto) 13.1 L, Monocytes (%) (Auto) 7.9 H, Eosinophils (%) (Auto) 2.3, Basophils (%) (Auto) 0.6, Neutrophils # (Auto) 6.4, Lymphocytes # (Auto) 1.1 L, Monocytes # (Auto) 0.7, Eosinophils # (Auto) 0.2, Basophils # (Auto) 0.1, Calcium Level 8.9, Aspartate Amino Transf (AST/SGOT) 17, Alanine Aminotransferase (ALT/SGPT) 23, Alkaline Phosphatase 117, Total Bilirubin 0.3, Total Protein 7.2, Albumin 2.7 L PIETRO GALEAS MD May 08, 2018 16:28
[2018-05-08 20:00] VITALS: BP 142/64
[2018-05-09 06:00] VITALS: BP 158/76
[2018-05-09 06:39] LABS: BASO # 0.1 10^3/uL (0.0-0.2); BASO % 0.6 % (0.0-1.0); EOS # 0.2 10^3/uL (0.0-0.50); EOS % 2.8 % (0.0-3.0); HEMATOCRIT 30.8 % (42.0-52.0); HEMOGLOBIN 9.8 g/dl (13.5-17.5); LYMPH # 1.2 10^3/uL (1.5-4.5); LYMPH % 15.1 % (24.0-44.0); MEAN CORPUSCULAR HEMOGLOBIN 31.4 pg (27.0-33.0); MEAN CORPUSCULAR HGB CONC 31.8 g/dl (32.0-36.5); MEAN CORPUSCULAR VOLUME 98.7 fl (80.0-96.0); MONO # 0.6 10^3/uL (0.0-0.8); MONO % 7.7 % (0.0-5.0); NEUTROPHILS % 73.4 % (36.0-66.0); PLATELET COUNT, AUTOMATED 205 10^3/uL (150-450); RED BLOOD COUNT 3.12 10^6/uL (4.30-6.10); WHITE BLOOD COUNT 8.1 10^3/uL (4.0-10.0)
[2018-05-09 07:10] LABS: ALBUMIN 2.7 GM/DL (3.2-5.2); BILIRUBIN,TOTAL 0.3 MG/DL (0.2-1.0); CREATININE FOR GFR 8.06 MG/DL (0.70-1.30); GLOMERULAR FILTRATION RATE 7.1 (>49); POTASSIUM SERUM 4.3 MEQ/L (3.5-5.1)
[2018-05-09] MEDS: (RENVELA) SEVELAMER **CARBONate** 800 MG TAB PO SCH ×3 (08:32→18:10)
[2018-05-09] MEDS: HEPARIN SOD (PORCINE) 5000 UNITS/ML VIAL SQ SCH ×2 (08:32→20:28)
[2018-05-09] MEDS: VITAMIN B COMPLEX/VIT C CAP PO SCH (08:33)
[2018-05-09] MEDS: GABAPENTIN 100 MG CAP PO SCH (08:33)
[2018-05-09] MEDS: HumaLOG INSULIN (NovoLOG) PER UNIT SC SCH ×4 (08:33→20:27)
[2018-05-09] MEDS: CARVedilol 12.5 MG TAB PO SCH ×2 (08:33→20:28)
[2018-05-09] MEDS: PANTOPRAZOLE 40MG TAB (PROTONIX) PO SCH (08:33)
[2018-05-09] MEDS: CETIRIZINE (ZyrTEC) 10 MG TAB PO SCH (08:34)
[2018-05-09] MEDS: CLOPIDOGREL 75 MG TAB PO SCH (08:34)
[2018-05-09] MEDS: ROSUVASTATIN 10 MG TAB (CRESTOR) PO SCH (08:34)
--- NOTE | 2018-05-09 09:38 | IPNPDOC ---
PM&R Progress Note DATE OF SERVICE: May 09, 2018 Radar Engineer Progress Note Subjective: Patient seen walking in therapy, reports he is ready to go home tomorrow. REVIEW OF SYSTEMS: The following is a completed review of systems and has been reviewed. Review of systems otherwise unremarkable. PAIN: Patient self reports LLE pain EYES: Negative for recent vision changes EARS, NOSE, & THROAT:denies throat/ear pain, no dysphagia CARDIOVASCULAR: denies chest pain or palpitations PULMONARY: Negative. Denies shortness of breath GASTROINTESTINAL: Negative for diarrhea/constipation GENITOURINARY: Negative for dysuria MUSCULOSKELETAL: LLE weakness HEMATOLOGICAL: + anemia SKIN: LLE incisions PSYCHIATRIC: Unremarkable All other review of systems found to be negative. PHYSICAL EXAMINATION: VITAL SIGNS: Please see below. GENERAL: Pleasant and cooperative. No acute distress. HEENT: PERRL. Extraocular movements intact. Clear conjunctiva CARDIOVASCULAR: Regular rate and rhythm. No murmurs, rubs, or gallops LUNGS: Clear to auscultation bilaterally. No wheezes. No rhonchi ABDOMEN: Soft, nontender, nondistended. Positive bowel sounds. Normal active bowel sounds NEUROLOGICAL: Alert and oriented times three. Cranial nerves II through XII lizy sly intact. Sensation grossly intact except diminished in bilateral feet EXTREMITIES: 5\5 strength bilateral upper extremities. 5\5 strength bilat lower extremity. SKIN: left D1 and lateral forefoot ulcers, right D1 punctate hyperpigmented lesions ASSESSMENT:68-year-old M with past medical history of PVD, ESRD, diastolic CHF who presents status post left lower extremity ischemia with angioplasty PLAN: 1. Rehab: PT/OT, maintain PWB, ambulating further with a RW 2. Neuro: pmh multiple strokes, stable- c/u statin therapy and BP meds 3. CArdio: pmh chronic systolic CHF with EF 30%, CAD s/p CABG- euvolemic, monitor for fluid overload- on dialysis, medicine consulted -PVD with angioplasty of his left popliteal artery and left superficial femoral artery in November 2017, s/p angioplasty 04/18/18- consulted Dr. Blank and request made to assess new right toe lesion, repeat angioplasty 05/04/18 -pmh HTN, carvedilol dose increased per medicine, recs appreciated 4. Resp: stable, encourage incentive spirometry 5. Endo: DM c/u insulin coverage-stable 6. Renal: ESRD-renal consulted, HD M/W/F, Aranesp per renal for anemia of chronic disease, recs appreciated 7. Rheum: pmh gout- colchicine prn-stable 8. Pain: Gabapentin, oxycodone, tylenol 9. DVT ppx: c/u heparin 10. GI ppx: protonix 11. SKin: cover left foots wounds, appear dry, monitor for infection, right D1 toe with punctate ischemic ulcers-will schedule outpatient wound care 12. Dispo: 05/10/18 to home with , progressing towards goals Allergies Coded Allergies: aspirin (Verified Allergy, Severe, CLOSES AIRWAY, 05/02/18) Vital Signs Vital Signs Date Time Temp Pulse Resp B/P (MAP) Pulse Ox O2 Delivery O2 Flow Rate FiO2 05/09/18 08:33 83 158/76 05/09/18 06:00 97.8 17 97 Laboratory Data CBC/BMP Laboratory Tests 05/09/18 06:22 Red Blood Count 3.12 L, Mean Corpuscular Volume 98.7 H, Mean Corpuscular Hemoglobin 31.4, Mean Corpuscular Hemoglobin Concent 31.8 L, Red Cell Distrib ution Width 14.9 H, Neutrophils (%) (Auto) 73.4 H, Lymphocytes (%) (Auto) 15.1 L, Monocytes (%) (Auto) 7.7 H, Eosinophils (%) (Auto) 2.8, Basophils (%) (Auto) 0.6, Neutrophils # (Auto) 6.0, Lymphocytes # (Auto) 1.2 L, Monocytes # (Auto) 0.6, Eosinophils # (Auto) 0.2, Basophils # (Auto) 0.1, Calcium Level 9.0, Aspartate Amino Transf (AST/SGOT) 15, Alanine Aminotransferase (ALT/SGPT) 20, Alkaline Phosphatase 111, Total Bilirubin 0.3, Total Protein 7.0, Albumin 2.7 L Labs 24H Laboratory Tests 2 05/08/18 11:41: Bedside Glucose (Misc Panel) 133H 05/08/18 16:46: Bedside Glucose (Misc Panel) 157H 05/08/18 19:54: Bedside Glucose (Misc Panel) 129H 05/09/18 06:22: Immature Granulocyte % (Auto) 0.4, White Blood Count 8.1, Red Blood Count 3.12L, Hemoglobin 9.8L, Hematocrit 30.8L, Mean Corpuscular Volume 98.7H, Mean Corpuscular Hemoglobin 31.4, Mean Corpuscular Hemoglobin Concent 31.8L, Red Cell Distribution Width 14.9H, Platelet Count 205, Neutrophils (%) (Auto) 73.4H, Lymphocytes (%) (Auto) 15.1L, Monocytes (%) (Auto) 7.7H, Eosinophils (%) (Auto) 2.8, Basophils (%) (Auto) 0.6, Neutrophils # (Auto) 6.0, Lymphocytes # (Auto) 1.2L, Monocytes # (Auto) 0.6, Eosinophils # (Auto) 0.2, Basophils # (Auto) 0.1, Nucleated Red Blood Cells % (auto) 0.0, Anion Gap 10, Glomerular Filtration Rate 7.1L, Blood Urea Nitrogen 55#H, Creatinine 8.06*H, Sodium Level 136, Potassium Level 4.3, Chloride Level 99, Carbon Dioxide Level 27, Calcium Level 9.0, Aspartate Amino Transf (AST/SGOT) 15, Alanine Aminotransferase (ALT/SGPT) 20, Alkaline Phosphatase 111, Total Bilirubin 0.3, Total Protein 7.0, Albumin 2.7L, Albumin/Globulin Ratio 0.63L Current Medications Current Medications Current Medications Acetaminophen (Tylenol Tab) 1,000 mg Q8HP PRN PO PAIN / FEVER Last administered on 05/08/18at 15:43; Start 04/26/18 at 18:45 Amlodipine Besylate (Norvasc) 2.5 mg DAILY PO Last administered on 05/01/18at 08:40; Start 05/01/18 at 09:00; Stop 05/01/18 at 18:20; Status DC Amlodipine Besylate (Norvasc) 2.5 mg QHS PO ; Start 05/03/18 at 21:00; Stop 05/03/18 at 21:00; Status DC Amlodipine Besylate (Norvasc) 2.5 mg QHS PO Last administered on 05/08/18at 20:50; Start 05/04/18 at 21:00 Amlodipine Besylate (Norvasc) 5 mg QHS PO Last administered on 05/03/18at 21:27; Start 05/03/18 at 21:00; Stop 05/04/18 at 11:04; Status DC Amlodipine Besylate (Norvasc) 10 mg DAILY PO Last administered on 05/02/18 09:08; Start 05/02/18 at 09:00; Stop 05/02/18 at 10:05; Status DC Amlodipine Besylate (Norvasc) 10 mg QHS PO ; Start 05/04/18 at 21:00; Stop 05/04/18 at 21:00; Status DC Carvedilol (COReg) 6.25 mg BID PO Last administered on 05/06/18 09:42; Start 04/26/18 at 21:00; Stop 05/06/18 at 14:32; Status DC Carvedilol (COReg) 12.5 mg BID PO Last administered on 05/09/18 08:33; Start 05/06/18 at 21:00 Cetirizine HCl (ZyrTEC) 10 mg DAILY PO Last administered on 05/09/18 08:34; Start 04/27/18 at 09:00 Clopidogrel Bisulfate (PLAVix) 75 mg DAILY PO Last administered on 05/09/18 08:34; Start 04/27/18 at 09:00 Darbepoetin Donny (Aranesp (Dialysis Use)) 100 mcg HD IV Last administered on 04/30/18 15:55; Start 04/30/18 at 13:45 Dextrose (Dextrose 50%) 25 ml ASDIRECTED PRN IV SEE LABEL COMMENTS; Start 04/26/18 at 18:45 Gabapentin (Neurontin) 100 mg DAILY PO Last administered on 05/09/18 08:33; Start 04/27/18 at 09:00 Glucagon (Glucagon) 1 mg ASDIRECTED PRN SC SEE LABEL COMMENTS; Start 04/26/18 at 18:45 Glucose (Glucose) 16 GM ASDIRECTED PRN PO SEE LABEL COMMENTS; Start 04/26/18 at 18:45 Heparin Sodium (Porcine) (Heparin) 5,000 units Q12H SQ Last administered on 05/09/18 08:32; Start 04/26/18 at 21:00 Home Med (Med Rec Complete!) ASDIRECTED XX ; Start 04/26/18 at 20:30; Stop 04/26/18 at 20:56; Status DC Insulin Human Lispro (HumaLOG INSULIN) SEE PROTOCOL TABLE AC SC Last administered on 05/09/18 08:33; Start 04/27/18 at 07:30 Insulin Human Lispro (HumaLOG INSULIN) SEE PROTOCOL TABLE QHS SC Last administered on 05/01/18 20:41; Start 04/26/18 at 21:00 Lidocaine (Lidoderm Patch) 1 patch DAILY TD Last administered on 05/01/18 08:37; Start 04/27/18 at 09:00; Stop 05/01/18 at 20:26; Status DC Miscellaneous (Unresolved Clarification Entry) SEE LABEL COMMENTS DAILY XX ; Start 05/02/18 at 09:00; Stop 05/03/18 at 13:50; Status DC Non-Formulary Medication ( See Comment Field Below ) REMOVE LIDODERM PATCH DAILY@21 XX Last administered on 04/30/18 21:00; Start 04/26/18 at 21:00; Stop 05/01/18 at 20:26; Status DC Ondansetron HCl (Zofran) 4 mg Q6HP PRN PO NAUSEA OR VOMITING; Start 04/26/18 at 18:45 Oxycodone HCl (Roxicodone, Oxyir) 5 mg Q4HP PRN PO PAIN; Start 04/26/18 at 18:45; Stop 05/03/18 at 13:49; Status DC Pantoprazole Sodium (Protonix) 40 mg DAILY PO Last administered on 05/09/18 08:33; Start 04/27/18 at 09:00 Rosuvastatin Calcium (Crestor) 20 mg DAILY PO Last administered on 05/09/18 08:34; Start 04/27/18 at 09:00 Sevelamer Carbonate (Renvela) 1,600 mg WM PO Last administered on 05/09/18 08:32; Start 04/27/18 at 08:00 Vitamin B Complex/ Vitamin C (Therapeutic B Complex w/C) 1 cap DAILY PO Last administered on 05/09/18 08:33; Start 04/27/18 at 09:00 SHANNAN OLMOS MD May 09, 2018 09:38
[2018-05-09] MEDS ORDERED: CARV12.5 PO (09:54)
[2018-05-09] MEDS ORDERED: CETI10TA PO (09:54)
[2018-05-09] MEDS ORDERED: CRES10TA PO (09:54)
[2018-05-09] MEDS ORDERED: PANT40TA3 PO (09:54)
[2018-05-09] MEDS ORDERED: AMLO25TA PO (09:54)
[2018-05-09] MEDS ORDERED: CLOP75TA2 PO (09:54)
[2018-05-09] MEDS ORDERED: GABA-1171 PO (09:54)
--- NOTE | 2018-05-09 12:38 | IPN ---
DATE: 05/09/2018 Mr. Dykes was seen on his bedside this morning. He is feeling well and denies any complaints. He is undergoing acute rehab and making progress. His left foot is feeling much better now since his second angioplasty. PHYSICAL EXAMINATION: Temperature 97.8 degrees Fahrenheit, heart rate 82 per minute and respiratory rate 16 per minute. Blood pressure 158/76 mmHg and oxygen saturation 97%. Head is atraumatic. Neck is supple and without jugular venous distention (JVD) or thyroid enlargement. His heart sounds are regular and lungs clear to auscultation. Abdomen is soft and nontender and bowel sounds are normal. Extremities have no cyanosis or clubbing. Left foot ischemic skin on the big toe is unchanged. He does not have any evidence of cellulitis. Today's labs show WBC count 8.1, hemoglobin 9.8 and hematocrit 30.8. Sodium 136, potassium 4.3, CO2 27, BUN 55 and creatinine 8.06. PROBLEMS: 1. End-stage renal disease. The patient is due for dialysis today and he will be dialyzed this afternoon. 2. History of congestive heart failure and hypoxemia. His volume status seems to be clinically well-compensated and we will try to remove about 3 liters fluid today as tolerated. 3. Anemia. His anemia is stable and we will continue to manage with once a week Aranesp during dialysis. 4. Hypertension. Blood pressure seems very well controlled on current medications and no changes are being made today.
[2018-05-09] MEDS ORDERED: HEPARIN 1,000 UNITS/ML 10ML VIAL (FOR RADIOLOGY& DIALYSIS ONLY) IV ONE (13:00)
[2018-05-09 14:00] VITALS: BP 150/82
--- NOTE | 2018-05-09 17:59 | IPNPDOC ---
Subjective Date Seen The patient was seen on 05/09/18. Subjective Chief Complaint/HPI Patient seen and examined at the bedside while receiving dialysis this evening. He denied any acute complaints, and states that he is tentatively scheduled to be discharged home tomorrow Objective Physical Examination General Exam: Positive: Alert, Cooperative, No Acute Distress ENT Exam: Positive: Atraumatic, Mucous membr. moist/pink Chest Exam: Positive: Diminished Heart Exam: Positive: Rate Normal, Normal S1, Normal S2 Abdomen Exam: Positive: Soft Extremity Exam: Positive: Other Assessment /Plan Plan/VTE VTE Prophylaxis Ordered?: Yes Plan Left lower extremity acute ischemia with ischemic ulcers - likely 2/2 PVD / PAD s/p angioplasty of L popliteal artery and L superficial femoral artery 11/2017 Was taken emergently for angiogram and stenting with Dr. Balnk on 04/18/2018 Patient was again taken for angiogram on 05/04/2018 c/w Plavix Pain control, anticoagulation, bowel care and PT/OT as per, [facility]. Rebollar Vascular surgery, Dr. Blank on consultation Cont PT HTN Cont Carvedilol and Amlodipine CAD s/p CABG Cont Carvedilol, Statin, and Plavix Compensated Systolic CHF (EF: 30%) No evidence of exacerbation ESRD on HD c/w HD as scheduled Nephrology on consultation Macrocytic anemia - likely 2/2 AOCD c/w Darbepoetin as per Nephrology Multiple CVA's Cont Plavix DM2 Cont ISS DLP Cont Rosuvastatin Neuropathy Cont Gabapentin H/o nonhealing left diabetic foot ulcers GI prophylaxis Protonix DVT prophylaxis Heparin SC Disposition: Continue with physical therapy--tentatively scheduled for D/C in the AM. VS, I&O, 24H, Bin Vital Signs/I&O Vital Signs Date Time Temp Pulse Resp B/P (MAP) Pulse Ox O2 Delivery O2 Flow Rate FiO2 05/09/18 14:00 98.2 85 15 150/82 (104) 97 I&O- Last 24 Hours up to 6 AM 05/09/18 06:00 Intake Total 800 ml Output Total 0 ml Balance 800 ml Laboratory Data 24H LABS Laboratory Tests 2 05/08/18 19:54: Bedside Glucose (Misc Panel) 129H 05/09/18 06:22: Immature Granulocyte % (Auto) 0.4, White Blood Count 8.1, Red Blood Count 3.12L, Hemoglobin 9.8L, Hematocrit 30.8L, Mean Corpuscular Volume 98.7H, Mean Corpuscular Hemoglobin 31.4, Mean Corpuscular Hemoglobin Concent 31.8L, Red Cell Distribution Width 14.9H, Platelet Count 205, Neutrophils (%) (Auto) 73.4H, Lymphocytes (%) (Auto) 15.1L, Monocytes (%) (Auto) 7.7H, Eosinophils (%) (Auto) 2.8, Basophils (%) (Auto) 0.6, Neutrophils # (Auto) 6.0, Lymphocytes # (Auto) 1.2L, Monocytes # (Auto) 0.6, Eosinophils # (Auto) 0.2, Basophils # (Auto) 0.1, Nucleated Red Blood Cells % (auto) 0.0, Anion Gap 10, Glomerular Filtration Rate 7.1L, Blood Urea Nitrogen 55#H, Creatinine 8.06*H, Sodium Level 136, Potassium Level 4.3, Chloride Level 99, Carbon Dioxide Level 27, Calcium Level 9.0, Aspartate Amino Transf (AST/SGOT) 15, Alanine Aminotransferase (ALT/SGPT) 20, Alkaline Phosphatase 111, Total Bilirubin 0.3, Total Protein 7.0, Albumin 2.7L, Albumin/Globulin Ratio 0.63L 05/09/18 11:45: Bedside Glucose (Misc Panel) 128H 05/09/18 16:46: Bedside Glucose (Misc Panel) 133H CBC/BMP Laboratory Tests 05/09/18 06:22 Red Blood Count 3.12 L, Mean Corpuscular Volume 98.7 H, Mean Corpuscular Hemoglobin 31.4, Mean Corpuscular Hemoglobin Concent 31.8 L, Red Cell Distribution Width 14.9 H, Neutrophils (%) (Auto) 73.4 H, Lymphocytes (%) (Auto) 15.1 L, Monocytes (%) (Auto) 7.7 H, Eosinophils (%) (Auto) 2.8, Basophils (%) (Auto) 0.6, Neutrophils # (Auto) 6.0, Lymphocytes # (Auto) 1.2 L, Monocytes # (Auto) 0.6, Eosinophils # (Auto) 0.2, Basophils # (Auto) 0.1, Calcium Level 9.0, Aspartate Amino Transf (AST/SGOT) 15, Alanine Aminotransferase (ALT/SGPT) 20, Alkaline Phosphatase 111, Total Bilirubin 0.3, Total Protein 7.0, Albumin 2.7 L PIETRO GALEAS MD May 09, 2018 17:59
[2018-05-09 20:00] VITALS: BP 148/62
[2018-05-10 06:00] VITALS: BP 140/65
[2018-05-10 07:30] LABS: BASO # 0.1 10^3/uL (0.0-0.2); BASO % 0.6 % (0.0-1.0); EOS # 0.2 10^3/uL (0.0-0.50); EOS % 1.7 % (0.0-3.0); HEMATOCRIT 33.6 % (42.0-52.0); HEMOGLOBIN 10.5 g/dl (13.5-17.5); LYMPH # 1.7 10^3/uL (1.5-4.5); LYMPH % 19.1 % (24.0-44.0); MEAN CORPUSCULAR HEMOGLOBIN 31.7 pg (27.0-33.0); MEAN CORPUSCULAR HGB CONC 31.3 g/dl (32.0-36.5); MEAN CORPUSCULAR VOLUME 101.5 fl (80.0-96.0); MONO # 0.8 10^3/uL (0.0-0.8); MONO % 8.7 % (0.0-5.0); NEUTROPHILS % 69.4 % (36.0-66.0); PLATELET COUNT, AUTOMATED 233 10^3/uL (150-450); RED BLOOD COUNT 3.31 10^6/uL (4.30-6.10); WHITE BLOOD COUNT 8.6 10^3/uL (4.0-10.0)
[2018-05-10] MEDS: HumaLOG INSULIN (NovoLOG) PER UNIT SC SCH (07:30)
[2018-05-10 07:55] LABS: ALBUMIN 2.9 GM/DL (3.2-5.2); BILIRUBIN,TOTAL 0.3 MG/DL (0.2-1.0); CALCIUM LEVEL 9.5 MG/DL (8.8-10.2); CREATININE FOR GFR 5.52 MG/DL (0.70-1.30); POTASSIUM SERUM 4.3 MEQ/L (3.5-5.1); TOTAL PROTEIN 7.6 GM/DL (6.4-8.2)
[2018-05-10] MEDS: HEPARIN SOD (PORCINE) 5000 UNITS/ML VIAL SQ SCH (08:22)
[2018-05-10] MEDS: VITAMIN B COMPLEX/VIT C CAP PO SCH (08:22)
[2018-05-10] MEDS: (RENVELA) SEVELAMER **CARBONate** 800 MG TAB PO SCH (08:22)
[2018-05-10] MEDS: GABAPENTIN 100 MG CAP PO SCH (08:22)
[2018-05-10] MEDS: PANTOPRAZOLE 40MG TAB (PROTONIX) PO SCH (08:22)
[2018-05-10 08:23] VITALS: BP 140/65
[2018-05-10] MEDS: CETIRIZINE (ZyrTEC) 10 MG TAB PO SCH (08:23)
[2018-05-10] MEDS: CLOPIDOGREL 75 MG TAB PO SCH (08:23)
[2018-05-10] MEDS: CARVedilol 12.5 MG TAB PO SCH (08:23)
[2018-05-10] MEDS: ROSUVASTATIN 10 MG TAB (CRESTOR) PO SCH (08:23)
--- NOTE | 2018-05-10 13:33 | PMRDS ---
DATE OF ADMISSION: 04/26/2018 DATE OF DISCHARGE: 05/10/2018 CHIEF COMPLAINT/DISCHARGE DIAGNOSIS: Left lower extremity arterial occlusion. HISTORY OF PRESENT ILLNESS: This is a 68-year-old man with a past medical history of end stage renal disease on dialysis, hypertension, diabetes, coronary artery disease (CAD) status post coronary artery bypass grafting (CABG), chronic systolic congestive heart failure (CHF) with ejection fraction of 30%, multiple strokes and prior angioplasty of his left popliteal artery and left superficial femoral artery in November 2017, who developed worsening pain in his limb and presented to [facility] ED on 04/18/2018 with difficulty walking and found to have ischemic ulcers. He was evaluated by vascular surgery who placed him on a heparin drip for suspected occlusion of his recent stent. He was made nothing by mouth and underwent angioplasty of stent with improvement in his overall pain. He was followed by nephrology and received dialysis during his hospital stay in addition to Aranesp for his anemia of chronic disease. His pain was managed and he was evaluated by therapy and found to have deficits in gait and activities of daily living and deemed medically appropriate for discharge to ARU on 04/26/2018 to return him to prior level of function. Past medical history as per HPI. HOSPITAL COURSE: The patient was admitted and enrolled in a comprehensive physical therapy/occupational therapy (PT/OT) program. He received 24 hour nursing supervision and weekly team meetings were held to discuss his progress. He was able to maintain partial weightbearing while ambulating with a rolling walker in therapy. He was continued on statin therapy and blood pressure medications for his history of stroke for secondary prevention, and had dialysis Monday, Monday, and Monday for his end stage renal disease. He underwent a repeat angioplasty on 05/04/[address] Blank without any complications. His diabetes is well controlled with insulin coverage and his pain was managed with gabapentin, oxycodone and Tylenol. He was found to have a new right toe ischemic ulcer which was followed by Dr. Blank and he was scheduled for outpatient follow-up with Dr. Blue at the wound care clinic. He was deemed functionally and medically stable to return to home on 05/10/2018. DISCHARGE MEDICATIONS: - amlodipine 2.5 mg at bedtime - carvedilol 12.5 mg twice a day - cetirizine 10 mg daily - Plavix 75 mg daily - gabapentin 100 mg daily - Protonix 40 mg daily - Crestor 20 mg daily - calcitriol 0.25 three times a week - insulin - sevelamer 1600 mg Monday and Monday FUNCTIONAL HISTORY: Upon discharge, the patient was standby assist for all functional transfers, able to walk under 150 feet standby assist as well, able to propel his wheelchair 300 feet independent level. In occupational therapy, he was contact guard for grooming, standby assist for toileting, standby assist for bathing, and upper and lower body dressing. His was trained in his activities of daily living care and he was deemed functional to return home with home services. Edited 05/10/2018 @ [address] [facility], [place]
--- NOTE | 2018-05-10 16:27 | IPNPDOC ---
Subjective Date Seen The patient was seen on 05/10/18. Subjective Chief Complaint/HPI Patient seen and examined at the bedside this morning. He states that he is feeling well today and is ready to be discharged home. He does not offer any acute complaints at this time. No overnight events noted as per house staff. Objective Physical Examination General Exam: Positive: Alert, Cooperative, No Acute Distress ENT Exam: Positive: Atraumatic, Mucous membr. moist/pink Chest Exam: Positive: Diminished Heart Exam: Positive: Rate Normal, Normal S1, Normal S2 Abdomen Exam: Positive: Soft; Negative: Tenderness Extremity Exam: Negative: Tenderness, Swelling Assessment /Plan Plan/VTE VTE Prophylaxis Ordered?: Yes Plan Left lower extremity acute ischemia with ischemic ulcers - likely 2/2 PVD / PAD s/p angioplasty of L popliteal artery and L superficial femoral artery 11/2017 Was taken emergently for angiogram and stenting with Dr. Blank on 04/18/2018 Patient was again taken for angiogram on 05/04/2018 c/w Plavix Pain control, anticoagulation, bowel care and PT/OT as per, [facility]. Rebollar Vascular surgery, Dr. Blank on consultation Cont PT HTN Cont Carvedilol and Amlodipine CAD s/p CABG Cont Carvedilol, Statin, and Plavix Compensated Systolic CHF (EF: 30%) No evidence of exacerbation ESRD on HD c/w HD as scheduled Nephrology on consultation Macrocytic anemia - likely 2/2 AOCD c/w Darbepoetin as per Nephrology Multiple CVA's Cont Plavix DM2 Cont ISS DLP Cont Rosuvastatin Neuropathy Cont Gabapentin H/o nonhealing left diabetic foot ulcers GI prophylaxis Protonix DVT prophylaxis Heparin SC Dispo--anticipated D/C today. Patient advised to follow with primary care physician within 7 days and with vascular surgery as scheduled. Follow-up dialysis sessions as scheduled. VS, I&O, 24H, Fishbone Vital Signs/I&O Vital Signs Date Time Temp Pulse Resp B/P (MAP) Pulse Ox O2 Delivery O2 Flow Rate FiO2 05/10/18 08:23 74 140/65 05/10/18 06:00 99.5 18 96 I&O- Last 24 Hours up to 6 AM 05/10/18 06:00 Intake Total 1080 ml Output Total 3000 ml Balance -1920 ml Laboratory Data 24H LABS Laboratory Tests 2 05/09/18 16:46: Bedside Glucose (Misc Panel) 133H 05/09/18 19:32: Bedside Glucose (Misc Panel) 195H 05/10/18 06:54: Immature Granulocyte % (Auto) 0.5, White Blood Count 8.6, Red Blood Count 3.31L, Hemoglobin 10.5L, Hematocrit 33.6L, Mean Corpuscular Volume 101.5H, Mean Cor puscular Hemoglobin 31.7, Mean Corpuscular Hemoglobin Concent 31.3L, Red Cell Distribution Width 15.3H, Platelet Count 233, Neutrophils (%) (Auto) 69.4H, Lymphocytes (%) (Auto) 19.1L, Monocytes (%) (Auto) 8.7H, Eosinophils (%) (Auto) 1.7, Basophils (%) (Auto) 0.6, Neutrophils # (Auto) 6.0, Lymphocytes # (Auto) 1.7, Monocytes # (Auto) 0.8, Eosinophils # (Auto) 0.2, Basophils # (Auto) 0.1, Nucleated Red Blood Cells % (auto) 0.0, Anion Gap 7L, Glomerular Filtration Rate 11.0L, Blood Urea Nitrogen 28H, Creatinine 5.52H, Sodium Level 136, Potassium Level 4.3, Chloride Level 100, Carbon Dioxide Level 29, Calcium Level 9.5, Aspartate Amino Transf (AST/SGOT) 13, Alanine Aminotransferase (ALT/SGPT) 19, Alkaline Phosphatase 112, Total Bilirubin 0.3, Total Protein 7.6, Albumin 2.9L, Albumin/Globulin Ratio 0.62L CBC/BMP Laboratory Tests 05/10/18 06:54 Red Blood Count 3.31 L, Mean Corpuscular Volume 101.5 H, Mean Corpuscular Hemoglobin 31.7, Mean Corpuscular Hemoglobin Concent 31.3 L, Red Cell Distribution Width 15.3 H, Neutrophils (%) (Auto) 69.4 H, Lymphocytes (%) (Auto) 19.1 L, Monocytes (%) (Auto) 8.7 H, Eosinophils (%) (Auto) 1.7, Basophils (%) (Auto) 0.6, Neutrophils # (Auto) 6.0, Lymphocytes # (Auto) 1.7, Monocytes # (Auto) 0.8, Eosinophils # (Auto) 0.2, Basophils # (Auto) 0.1, Calcium Level 9.5, Aspartate Amino Transf (AST/SGOT) 13, Alanine Aminotransferase (ALT/SGPT) 19, Alkaline Phosphatase 112, Total Bilirubin 0.3, Total Protein 7.6, Albumin 2.9 L PIETRO GALEAS MD May 10, 2018 16:27
--- NOTE | 2018-06-13 11:44 | RO ---
DATE OF PROCEDURE: 05/04/2018 ATTENDING SURGEON: Dr. Maddy Blank PREOPERATIVE DIAGNOSIS: Left foot ischemia and gangrene. POSTOPERATIVE DIAGNOSIS: Left foot ischemia and gangrene. PROCEDURE: Left lower extremity angiogram, left superficial femoral and popliteal artery angioplasty and stent, Mynx closure of the right common femoral arteriotomy. INDICATION: The patient is a male with end-stage renal disease, diabetes, and nonhealing wounds in his left foot with worsening of the wounds. The patient will undergo an angiogram with possible angioplasty, stent, and/or atherectomy. Risks, benefits, and alternative treatment options were discussed with the patient. ANESTHESIA: Was local with sedation. HEPARIN: None. COMPLICATION: None. DRAINS: None. SPECIMENS: None. IMPLANTS: None. DESCRIPTION OF PROCEDURE: The patient was taken to the angiography suite, placed supine on the angiography room table, and the right common femoral artery was cannulated with a micropuncture needle. Catheter was brought up and over the bifurcation of the iliac arteries and placed in the left common femoral artery, and an angiogram was performed. This showed high-grade stenosis in the superficial femoral and popliteal artery which was angioplastied with a 7 x 120 Estela drug-eluting stent and postdilated with a 6 x 100 balloon. Final angiogram showed resolution of the stenosis with excellent flow through the left lower extremity arteries into the tibial vessels with severe tibioperoneal arterial occlusive disease distally. The catheters and wires were removed, and a Mynx closure device was used to close the arteriotomy in the right common femoral artery with an additional 10 minutes of adjunctive pressure applied for hemostasis. Dressings were then applied. The patient tolerated the procedure well. All instrument, sponge, and needle counts were correct at the end of the case. There were no complications. Dr. lBank was present for and directed the entire case. The patient was transferred to the holding area and subsequently to the floor in stable condition.
== END 2018-05-10 11:20 | disposition home health service (06) | DRG 252 ==
LOC: M ED INP 20:51 → M PM&R 20:55
PROVIDERS: ADMIT Physical Medicine & Rehabilitation; ATTEND Physical Medicine & Rehabilitation
PROC: 5A1D70Z Performance of Urinary Filtration, Intermittent, Less than 6 Hours Per Day (ICD-10-PCS; principal; 2018-04-27)
PROC: 047L34Z Dilation of Left Femoral Artery with Drug-eluting Intraluminal Device, Percutaneous Approach (ICD-10-PCS; 2018-05-04)
PROC: 047N34Z Dilation of Left Popliteal Artery with Drug-eluting Intraluminal Device, Percutaneous Approach (ICD-10-PCS; 2018-05-04)
DX: I70.345 Atherosclerosis of unspecified type of bypass graft(s) of the left leg with ulceration of other part of foot (principal); N18.6 End stage renal disease; I50.22 Chronic systolic (congestive) heart failure; I13.2 Hypertensive heart and chronic kidney disease with heart failure and with stage 5 chronic kidney disease, or end stage renal disease; E11.22 Type 2 diabetes mellitus with diabetic chronic kidney disease; E11.51 Type 2 diabetes mellitus with diabetic peripheral angiopathy without gangrene; I25.10 Atherosclerotic heart disease of native coronary artery without angina pectoris; D63.1 Anemia in chronic kidney disease; R26.9 Unspecified abnormalities of gait and mobility; E11.621 Type 2 diabetes mellitus with foot ulcer; L97.519 Non-pressure chronic ulcer of other part of right foot with unspecified severity; M10.9 Gout, unspecified; Z95.820 Peripheral vascular angioplasty status with implants and grafts; Z99.2 Dependence on renal dialysis; Z86.73 Personal history of transient ischemic attack (TIA), and cerebral infarction without residual deficits; Z79.4 Long term (current) use of insulin; Z79.899 Other long term (current) drug therapy; Z88.6 Allergy status to analgesic agent

== ENCOUNTER 2018-05-25 17:15 | Inpatient (IN) | payer MEDICARE, OTHER ==
[~2018-05-25] VITALS: Ht 172.7 cm; Wt 83.5 kg
[~2018-05-25 17:15] MED LIST changes: +AMLO25TA PO; +CARV12.5 PO
[2018-05-25] MEDS ORDERED: PIPERACILLIN/TAZOBACTAM SOD 3.375 GM in D5W MINI-BAG PLUS 50 ML IV ONE (19:00)
--- NOTE | 2018-05-25 19:34 | REP ---
Left foot four views: There are no comparisons. There is demineralization. The soft tissues at the tip of the great toe appear atrophied. The soft tissues of the great toe otherwise appear diffusely edematous. There is a focal lytic lesion at the base of the great toe proximal phalange inferomedially. The finding amounts are nonspecific and could be post-traumatic or infectious. No lytic, blastic or destructive skeletal lesions of the fifth digit are identified. No fifth digit soft tissue edema is identified. The joint spaces are unremarkable. There are no calcifications or foreign bodies. Consider follow-up MRI or radionuclide bone scan for further evaluation. Electronically Signed by Ramesh Hill MD 05/25/2018 07:26 P
[2018-05-25] MEDS ORDERED: INSUNSD SC (20:27)
[2018-05-25] MEDS ORDERED: ACET-683 PO (20:27)
[2018-05-25] MEDS ORDERED: CARV12.5 PO (20:27)
[2018-05-25] MEDS ORDERED: AMLO25TA PO (20:27)
[2018-05-25] MEDS ORDERED: ALL10TAB28 PO (20:27)
[2018-05-25] MEDS ORDERED: ROSU10TA5 PO (20:29)
[2018-05-25] MEDS: HumaLOG INSULIN (NovoLOG) PER UNIT SC SCH (21:00)
[2018-05-25 21:50] LABS: BASO % 0.5 % (0.0-1.0); EOS # 0.2 10^3/uL (0.0-0.50); EOS % 2.7 % (0.0-3.0); HEMATOCRIT 33.8 % (42.0-52.0); HEMOGLOBIN 10.6 g/dl (13.5-17.5); LYMPH # 1.4 10^3/uL (1.5-4.5); LYMPH % 17.6 % (24.0-44.0); MEAN CORPUSCULAR HEMOGLOBIN 31.4 pg (27.0-33.0); MEAN CORPUSCULAR HGB CONC 31.4 g/dl (32.0-36.5); MONO # 0.6 10^3/uL (0.0-0.8); MONO % 7.5 % (0.0-5.0); NEUTROPHILS # 5.8 10^3/uL (1.8-7.7); NEUTROPHILS % 71.3 % (36.0-66.0); PLATELET COUNT, AUTOMATED 168 10^3/uL (150-450); RED BLOOD COUNT 3.38 10^6/uL (4.30-6.10); WHITE BLOOD COUNT 8.1 10^3/uL (4.0-10.0)
[2018-05-25 22:01] LABS: ALBUMIN 3.3 GM/DL (3.2-5.2); BILIRUBIN,DIRECT 0.1 MG/DL (0.0-0.2); BILIRUBIN,TOTAL 0.3 MG/DL (0.2-1.0); C REACTIVE PROTEIN QUANTITATIV 2.69 MG/DL (0.00-0.30); CALCIUM LEVEL 8.8 MG/DL (8.8-10.2); CREATININE FOR GFR 4.38 MG/DL (0.70-1.30); GLOMERULAR FILTRATION RATE 14.3 (>49); POTASSIUM SERUM 3.7 MEQ/L (3.5-5.1); TOTAL PROTEIN 7.2 GM/DL (6.4-8.2)
[2018-05-25 22:07] LABS: INR 1.14; PROTHROMBIN TIME 14.8 SECONDS (12.1-14.4)
[2018-05-25] MEDS ORDERED: CETIRIZINE (ZyrTEC) 10 MG TAB PO PRN (23:00)
[2018-05-25] MEDS ORDERED: VANCOMYCIN HCL 1,000 MG, VIAL MATE ADAPTER 1 EACH in D5W 250 ML IV ONE (23:00)
[2018-05-25] MEDS ORDERED: GLUCOSE 4 GM CHEW TABLET PO PRN (23:00)
[2018-05-25] MEDS ORDERED: DEXTROSE 50% 50 ML SYRINGE IV PRN (23:00)
[2018-05-25] MEDS ORDERED: ACETAMINOPHEN 500 MG TAB PO PRN (23:00)
[2018-05-25] MEDS ORDERED: GLUCAGON FOR INJ 1 MG VIAL (J1610) SC PRN (23:00)
--- NOTE | 2018-05-25 23:19 | HPEPDOC ---
General Date of Admission 05/25/18 Chief Complaint The patient is a 68-year-old male admitted with a reason for visit of Foot Pain. History of Present Illness 68-year-old male with past medical history of end-stage renal disease on hemodialysis, hypertension, diabetes, coronary artery disease status post CABG, chronic systolic congestive heart failure, CVA, and peripheral vascular disease who initially had an angioplasty done of the left popliteal artery and left superficial femoral artery in November 2017. He subsequently developed left lower extremity pain once again and was admitted at [facility] from 04/18-04/26 at which time he underwent further vascular intervention with angiogram and stenting by vascular surgery. He was then transferred to the acute rehabilitation unit here and functionally optimized from 04/26-05/10/18. At this time, the patient returns to the ER after his home health aide noticed that the patient's left foot necrotic wounds were worsening and there was more surrounding erythema. The patient contacted Dr. Blank's office who counseled the patient to come to the ER for admission and further evaluation. At this time, the patient denies any acute complaints of fevers, chills, chest pain, palpitations, abdominal pain, or any nausea/vomiting/diarrhea. The patient will be admitted under the hospitalist service, and Dr. Blank has been contacted by the ER provider and vascular surgery will see the patient in the a.m. Home Medications Scheduled Amlodipine Besylate (Amlodipine Besylate) 2.5 Mg Tablet, 2.5 MG PO QHS, (Reported) Calcitriol (Calcitriol) 0.25 Mcg Cap, 0.25 MCG PO 3XW, (Reported) RECEIVES AT DIALYSIS ON MON, MON, MON Calcium Carbonate (Tums Ultra) 1,000 Mg Chw, 1,000 MG PO WM, (Reported) Carvedilol (Carvedilol) 12.5 Mg Tablet, 12.5 MG PO BID, (Reported) Clopidogrel Bisulfate (Clopidogrel) 75 Mg Tab, 75 MG PO DAILY, (Reported) Ergocalciferol (Vitamin D2) (Vitamin D2) 50,000 Unit Cap, 50,000 UNIT PO 1XWK, (Reported) TAKES ON WEDNESDAYS Folic Acid/Vit B Complex and C (Radha-Haja Tablet) 1 Tab Tab, 1 TAB PO DAILY, (Reported) Insulin Human NPH (Humulin N) 100 Unit/1 Ml Vial, 1 DOSE SC DAILY, (Reported) SLIDING SCALE; REPORTED USUALLY BETWEEN 2 AND 4 UNITS Pantoprazole Sodium (Protonix) 40 Mg Tab, 40 MG PO DAILY, (Reported) Rosuvastatin Calcium (Rosuvastatin Calcium) 10 Mg Tablet, 10 MG PO QHS, (Reported) Sevelamer Carbonate (Renvela) 800 Mg Tab, 1,600 MG PO WM, (Reported) Scheduled PRN Acetaminophen (Acetaminophen) 500 Mg Tablet, 1,000 MG PO QID PRN for PAIN, (Reported) Cetirizine HCl (Cetirizine HCl) 10 Mg Tablet, 10 MG PO DAILY PRN for ALLERGIES, (Reported) Allergies Coded Allergies: aspirin (Verified Allergy, Severe, CLOSES AIRWAY, 05/02/18) Past Medical History Medical History As noted in HPI Social History * Smoker: Denies Alcohol: Denies Drugs: denies Review of Systems Other systems 10 point review of systems negative unless otherwise specified in HPI. Physical Examination General Exam: Positive: Alert, Cooperative, No Acute Distress ENT Exam: Positive: Atraumatic, Mucous membr. moist/pink Neck Exam: Negative: JVD Chest Exam: Positive: Clear to auscultation, Normal air movement Heart Exam: Positive: Rate Normal, Normal S1 Abdomen Exam: Positive: Soft; Negative: Tenderness Extremity Exam: Negative: Tenderness Skin Exam: Positive: Other skin issue (Left foot with necrotic changes on the big toe, and along the lateral surface of the 5th toe with surrounding erythema. No active drainage noted. No tenderness to palpation.) Psych Exam: Positive: Oriented x 3 Vital Signs Vital Signs Date Time Temp Pulse Resp B/P (MAP) Pulse Ox O2 Delivery O2 Flow Rate FiO2 05/25/18 19:05 05/25/18 17:16 97.7 77 99 Room Air Laboratory Data Labs 24H Laboratory Tests 2 05/25/18 21:24: Immature Granulocyte % (Auto) 0.4, White Blood Count 8.1, Red Blood Count 3.38L, Hemoglobin 10.6L, Hematocrit 33.8L, Mean Corpuscular Volume 100.0H, Mean Corpuscular Hemoglobin 31.4, Mean Corpuscular Hemoglobin Concent 31.4L, Red Cell Distribution Width 14.8H, Platelet Count 168, Neutrophils (%) (Auto) 71.3H, Lymphocytes (%) (Auto) 17.6L, Monocytes (%) (Auto) 7.5H, Eosinophils (%) (Auto) 2.7, Basophils (%) (Auto) 0.5, Neutrophils # (Auto) 5.8, Lymphocytes # (Auto) 1.4L, Monocytes # (Auto) 0.6, Eosinophils # (Auto) 0.2, Basophils # (Auto) 0.0, Nucleated Red Blood Cells % (auto) 0.0, Prothrombin Time 14.8H, Prothromb Time International Ratio 1.14, Activated Partial Thromboplast Time 33.0, Anion Gap 6L, Glomerular Filtration Rate 14.3L, Lactic Acid Level 0.9, Calcium Level 8.8, Aspartate Amino Transf (AST/SGOT) 16, Alanine Aminotransferase (ALT/SGPT) 18, Alkaline Phosphatase 114, Total Bilirubin 0.3, Direct Bilirubin 0.1, C-Reactive Protein, Quantitative 2.69H, Total Protein 7.2, Albumin 3.3, Albumin/Globulin Ratio 0.85L CBC/BMP Laboratory Tests 05/25/18 21:24 Red Blood Count 3.38 L, Mean Corpuscular Volume 100.0 H, Mean Corpuscular Hemoglobin 31.4, Mean Corpuscular Hemoglobin Concent 31.4 L, Red Cell Distribution Width 14.8 H, Neutrophils (%) (Auto) 71.3 H, Lymphocytes (%) (Auto) 17.6 L, Monocytes (%) (Auto) 7.5 H, Eosinophils (%) (Auto) 2.7, Basophils (%) (Auto) 0.5, Neutrophils # (Auto) 5.8, Lymphocytes # (Auto) 1.4 L, Monocytes # (Auto) 0.6, Eosinophils # (Auto) 0.2, Basophils # (Auto) 0.0 Microbiology Microbiology 05/25/18 Blood Culture, Received Pending 05/25/18 Blood Culture, Received Pending Plan / VTE VTE Prophylaxis Ordered?: Yes Plan Plan Worsening LLE Necrotic wounds, Peripheral Vascular Disease XR of the Foot noted Will defer ordering of MRI of the Foot to vascular surgery Blood cultures, ESR/CRP levels ordered We will empirically cover the patient with Vanco/Zosyn Will f/u with Vascular Surgery recommendations ESRD on HD (M, W, F) s/p Dialysis today Nephrology will need to be consulted at some point to resume his dialysis schedule next week HTN Cont Carvedilol and Amlodipine CAD s/p CABG Cont Carvedilol, Statin, and Plavix Compensated Systolic CHF (EF: 30%) No evidence of decompensation Macrocytic anemia - likely 2/2 AOCD Multiple CVA's Cont Plavix DM2 Cont ISS DLP Cont Rosuvastatin Neuropathy Cont Gabapentin H/o nonhealing left diabetic foot ulcers Mgmt as per Vascular surgery GI prophylaxis Protonix DVT prophylaxis Heparin SC PIETRO GALEAS MD May 25, 2018 23:19
[2018-05-26 00:06] LABS: ERYTHROCYTE SEDIMENTATION RATE 47 mm/hr (0-20)
[2018-05-26] MEDS: ROSUVASTATIN 10 MG TAB (CRESTOR) PO SCH ×2 (00:18→21:45)
[2018-05-26] MEDS: CARVedilol 12.5 MG TAB PO SCH ×3 (00:18→21:46)
[2018-05-26 01:25] VITALS: BP 163/77
[2018-05-26 06:00] VITALS: BP 153/65
[2018-05-26 06:25] LABS: HEMOGLOBIN 10.4 g/dl (13.5-17.5); MEAN CORPUSCULAR HEMOGLOBIN 31.3 pg (27.0-33.0); MEAN CORPUSCULAR HGB CONC 31.5 g/dl (32.0-36.5); MEAN CORPUSCULAR VOLUME 99.4 fl (80.0-96.0); PLATELET COUNT, AUTOMATED 143 10^3/uL (150-450); RED BLOOD COUNT 3.32 10^6/uL (4.30-6.10); WHITE BLOOD COUNT 6.6 10^3/uL (4.0-10.0)
[2018-05-26 06:43] LABS: C REACTIVE PROTEIN QUANTITATIV 2.61 MG/DL (0.00-0.30); CALCIUM LEVEL 8.8 MG/DL (8.8-10.2); CREATININE FOR GFR 5.22 MG/DL (0.70-1.30); GLOMERULAR FILTRATION RATE 11.7 (>49); MAGNESIUM LEVEL 2.1 MG/DL (1.8-2.4); POTASSIUM SERUM 3.6 MEQ/L (3.5-5.1)
[2018-05-26] MEDS: CLOPIDOGREL 75 MG TAB PO SCH (07:45)
[2018-05-26] MEDS: PANTOPRAZOLE 40MG TAB (PROTONIX) PO SCH (07:45)
[2018-05-26] MEDS: CALCIUM CARBONATE 500 MG CHEW U/D PO SCH ×3 (07:45→18:00)
[2018-05-26] MEDS: (RENVELA) SEVELAMER **CARBONate** 800 MG TAB PO SCH ×3 (07:47→20:16)
[2018-05-26] MEDS: HEPARIN SOD (PORCINE) 5000 UNITS/ML VIAL SQ SCH ×2 (07:59→21:45)
[2018-05-26] MEDS: HumaLOG INSULIN (NovoLOG) PER UNIT SC SCH ×4 (08:00→21:00)
--- NOTE | 2018-05-26 10:08 | IPNPDOC ---
Date Seen The patient was seen on 05/26/18. Progress Note SUBJECTIVE: 68-year-old male with past medical history of end-stage renal disease on hemodialysis and WF, PAD status post left popliteal artery and left femoral artery angioplasty in November 2017, hypertension, diabetes, coronary disease status post CABG, chronic systolic congestive heart failure present ER with left necrotic foot wound, admitted for Vascular evaluation and treatment. Interval history: Patient reports feeling fine, denies any particular complaints. States that his L. toes is tender to touch but otherwise does not bother him too much when it is still. OBJECTIVE PHYSICAL EXAMINATION: VITAL SIGNS: Please see below. General: No acute distress, Alert Eyes: Normal sclera, EOMI, ADINA HENT: Atraumatic, neck supple, moist mucous membranes Cardiovascular: Normal rate, normal rhythm. No murmurs appreciated. Pulmonary: Clear to auscultation b/l, no wheezing GI: Soft, nontender, nondistended MSK: L. foot with dry necrosis at the tip of the big toe lateral surface of 5th. R. foot with distal big toe darkened/discoloration. Pulses thready/weak bilaterally, worse in L. foot. Skin: Warm and dry. L. foot with dry necrosis at the tip of the big toe lateral surface of 5th. Neuro: CN grossly intact. No focal deficits. Strengths equal b/l. Psych: oriented x 3 LABORATORY DATA, IMAGING STUDIES, MICROBIOLOGY: Please see below. DVT prophylaxis ordered?: HSQ ASSESSMENT AND PLAN: 1. PVD with worsening LLE necrotic wound - ESR elevated. Blood cultures pending. - Afebrile with no leukocytosis. - Pending vascular evaluation and intervention. Will f/u. - c/w Empiric Abx Vanc/Zosyn at this time. 2. ESRD on HD - HD MWF, has had his session on Monday. - Nephrology consulted and notified. 3. HTN - Resume home meds Norvasc and Coreg. 4. CAD s/p CABG - c/w home meds. - No chest pain at this time. 5. Chronic HFrEF EF 30% - resume home meds. - Not in exacerbation. 6. DM - Accuchecks, ISS. DISPOSITION: Likely home. VS, I&O, 24H, Fishbone Vital Signs/I&O Vital Signs Date Time Temp Pulse Resp B/P (MAP) Pulse Ox O2 Delivery O2 Flow Rate FiO2 05/26/18 07:48 90 160/56 05/26/18 06:00 97.2 19 97 05/26/18 00:21 Room Air I&O- Last 24 Hours up to 6 AM 05/26/18 06:00 Intake Total 0 ml Output Total 0 ml Balance 0 ml Laboratory Data 24H LABS Laboratory Tests 2 05/25/18 21:24: Immature Granulocyte % (Auto) 0.4, White Blood Count 8.1, Red Blood Count 3.38L, Hemoglobin 10.6L, Hematocrit 33.8L, Mean Corpuscular Volume 100.0H, Mean Corpuscular Hemoglobin 31.4, Mean Corpuscular Hemoglobin Concent 31.4L, Red Cell Distribution Width 14.8H, Platelet Count 168, Neutrophils (%) (Auto) 71.3H, Lymphocytes (%) (Auto) 17.6L, Monocytes (%) (Auto) 7.5H, Eosinophils (%) (Auto) 2.7, Basophils (%) (Auto) 0.5, Neutrophils # (Auto) 5.8, Lymphocytes # (Auto) 1.4L, Monocytes # (Auto) 0.6, Eosinophils # (Auto) 0.2, Basophils # (Auto) 0.0, Nucleated Red Blood Cells % (auto) 0.0, Erythrocyte Sedimentation Rate 47H, Prothrombin Time 14.8H, Prothromb Time International Ratio 1.14, Activated Par tial Thromboplast Time 33.0, Anion Gap 6L, Glomerular Filtration Rate 14.3L, Lactic Acid Level 0.9, Calcium Level 8.8, Aspartate Amino Transf (AST/SGOT) 16, Alanine Aminotransferase (ALT/SGPT) 18, Alkaline Phosphatase 114, Total Bilirubin 0.3, Direct Bilirubin 0.1, C-Reactive Protein, Quantitative 2.69H, Total Protein 7.2, Albumin 3.3, Albumin/Globulin Ratio 0.85L 05/26/18 01:35: Bedside Glucose (Misc Panel) 119H 05/26/18 05:59: Nucleated Red Blood Cells % (auto) 0.0, Anion Gap 6L, Glomerular Filtration Rate 11.7L, Calcium Level 8.8, C-Reactive Protein, Quantitative 2.61H, Blood Urea Nitrogen 25H, Creatinine 5.22H, Sodium Level 137, Potassium Level 3.6, Chloride Level 100, Carbon Dioxide Level 31, Magnesium Level 2.1 CBC/BMP Laboratory Tests 05/25/18 21:24 Red Blood Count 3.38 L, Mean Corpuscular Volume 100.0 H, Mean Corpuscular Hemoglobin 31.4, Mean Corpuscular Hemoglobin Concent 31.4 L, Red Cell Distribution Width 14.8 H, Neutrophils (%) (Auto) 71.3 H, Lymphocytes (%) (Auto) 17.6 L, Monocytes (%) (Auto) 7.5 H, Eosinophils (%) (Auto) 2.7, Basophils (%) (Auto) 0.5, Neutrophils # (Auto) 5.8, Lymphocytes # (Auto) 1.4 L, Monocytes # (Auto) 0.6, Eosinophils # (Auto) 0.2, Basophils # (Auto) 0.0 05/26/18 05:59 Red Blood Count 3.32 L, Mean Corpuscular Volume 99.4 H, Mean Corpuscular Hemoglobin 31.3, Mean Corpuscular Hemoglobin Concent 31.5 L, Red Cell Distribution Width 14.7 H, Calcium Level 8.8 Microbiology Microbiology 05/25/18 Blood Culture, Received Pending 05/25/18 Blood Culture, Received Pending REGAN PEREIRA MD May 26, 2018 10:08
[2018-05-26 10:34] LABS: VANCOMYCIN RANDOM 15.9 UG/ML
--- NOTE | 2018-05-26 11:39 | CR ---
DATE OF CONSULTATION: 05/26/2018 REQUESTING PHYSICIAN: Ji Levine MD REASON FOR CONSULTATION: To assist in the management of end-stage renal disease. HISTORY OF PRESENT ILLNESS: Mr. Dykes is a 68-year-old gentleman with multiple chronic medical problems including longstanding hypertension, type 2 diabetes, peripheral vascular disease with ischemic ulcers on left foot, status post angioplasty of the left leg, end-stage renal disease requiring maintenance hemodialysis, coronary artery disease and congestive heart failure. He was admitted last evening due to worsening ischemic ulcers on his left foot. He had angioplasty done on his left leg about a month ago. The patient did complete his dialysis treatment yesterday prior to admission. PAST MEDICAL AND SURGICAL HISTORY: Significant for: 1. Longstanding history of hypertension. 2. History of type 2 diabetes. 3. History of end-stage renal disease requiring maintenance hemodialysis. 4. History of prior stroke. 5. Coronary artery disease, status post coronary artery bypass grafting (CABG). 6. History of chronic systolic congestive heart failure. 7. History of peripheral vascular disease, status post left lower extremity angioplasty and ischemic ulcers on left foot. 8. History of recurrent pleural effusion. 9. History of anemia. 10. History of secondary hyperparathyroidism. 11. Hyperlipidemia. MEDICATIONS: His home medications include : - amlodipine 2.5 mg daily - calcitriol 0.25 mcg three times a week - calcium carbonate 1000 mg with meals - carvedilol 12.5 mg b.i.d. - Plavix 75 mg daily - folic acid and B complex one tablet daily - insulin per sliding scale - Protonix 40 mg daily - Crestor 10 mg daily - Renvela 800 mg t.i.d. with meals. ALLERGIES: The patient has allergy to ASPIRIN. PERSONAL AND SOCIAL HISTORY: The patient is and lives with his . He does not smoke or drink. FAMILY HISTORY: Negative for end-stage renal disease. REVIEW OF SYSTEMS: On review of head and neck he denies any headache, ears, nose or throat problems. Cardiovascular system is negative for dyspnea or chest pain. He does have prior history of systolic congestive heart failure. Respiratory system negative for cough and hemoptysis. He has history of pleural effusion in the past. Gastrointestinal (GI) system is negative for nausea, vomiting or diarrhea. Genitourinary () system is negative for dysuria or hematuria. Endocrine system is significant for type 2 diabetes, hyperparathyroidism and hypercholesterolemia. Psychosocial system is negative for depression or anxiety. Neurological system is significant for prior stroke several years ago. He does have mild residual weakness. Hematological system is significant for anemia of chronic kidney disease. PHYSICAL EXAMINATION: The patient is awake and alert at the time of my visit. His temperature is 97.2 degrees Fahrenheit, heart rate 78 per minute and respiratory rate 18 per minute. Blood pressure 153/65 mmHg and oxygen saturation 97% on room air. His head is atraumatic. Ears, nose and throat are unremarkable. Neck is supple and without JVD or thyroid enlargement. Heart sounds are regular and lungs clear to auscultation. Abdomen soft and nontender and bowel sounds are normal. Extremities have no cyanosis or clubbing. Left foot has ischemic gangrenous changes on the tip of the big toe and fifth toe along with surrounding part of the foot. He also has mild gangrenous changes in the right big toe. Neurologically he is awake, alert and oriented times three. LABORATORY DATA: His WBC count of 6.6, hemoglobin 10.4 and hematocrit 33.0. Platelets 143. Sodium 137, potassium 3.6, CO2 31, BUN 25 and creatinine 5.22. Glucose 111 and calcium 8.8. C-reactive protein is 2.61. A random vancomycin level is 15.9. PROBLEMS: 1. End-stage renal disease. The patient was dialyzed yesterday and he will be scheduled for next dialysis on Monday. At this point there is no emergent indication for dialysis. 2. Chronic systolic congestive heart failure. His volume status is very well compensated and he has been well maintained with dialysis. We will plan to remove about 3 liters of fluid with next dialysis on Monday. No urgent intervention is needed today. 3. Hypertension. Blood pressure is reasonably well-controlled on current antihypertensive meds and I would recommend to continue with the same. 4. Anemia. His anemia is stable at the desired level. No intervention is indicated at this time. 5. Peripheral vascular disease with ischemic changes on the left foot. The patient has chronic problems with the ischemia of big toe; however, his fifth toe also has gangrenous changes now. He had an angioplasty done on his left leg about a month ago. At present, he is on antibiotics and is waiting for Dr. Blank. He is likely to require debridement of his fifth toe. Thank you for involving me in the care of Mr. Dykes. I will follow him along with you.
[2018-05-26] MEDS: PIPERACILLIN/TAZOBACTAM SOD 2.25 GM in D5W MINI-BAG PLUS 50 ML IV SCH ×2 (12:00→21:45)
[2018-05-26 14:00] VITALS: BP 158/65
--- NOTE | 2018-05-26 14:16 | PHACANCOPD ---
PHARMACY VANCOMYCIN DOSING Pt Demographics Demographics Patient Age:68 , Weight:78.400 , Gender: male Adjusted Body Weight Date: 05/26/18, Adjusted Body Weight: Kg Events Past 24 Hours Events Past 24 Hours: YES: Dialysis; NO: Diuretic Therapy, Change in CrCl, Fever, Elevation in WBC, Pending Diagnostics, Pending Procedures, Other Vancomycin Vancomycin indication: DIABETIC FOOT INFECTION Vancomycin Target Ranges: 15-20 mcg/ml Vancomycin Load Y/N: Yes Load Dose Date Time Vancomycin Load Dose: 1000MG Date: 05/25 Time: Vancomycin Dose Date: 05/26/18. Current Vancomycin Dose: [VANCO 1GM AFTER HD - MWF] Intermittent Dosing?: No Labs Labs Item Value Date Time White Blood Count 8.1 10^3/uL 05/25/182123 White Blood Count 6.6 10^3/uL 05/26/18 0559 Erythrocyte Sedimentation Rate 47 mm/hr H 05/25/182123 C-Reactive Protein, Quantitative 2.69 MG/DL H 05/25/182123 C-Reactive Protein, Quantitative 2.61 MG/DL H 05/26/18 0559 Lactic Acid Level 0.9 MMOL/L 05/25/182123 Vital Signs Label Value Date Time Patient Temperature 97.2 degrees F 05/26/18 0600 Temperature Source Temporal 05/26/18 0600 Micro Microbiology 05/25/18 Blood Culture, Received Pending 05/25/18 Blood Culture, Received Pending Creatinine Clearance Date:05/26/18. Creatinine Clearance: . Assessment and Plan Maintaining Current Dose?: Yes Reason for dose change: No Dose Change Pharmacist Note Pharmacist Note Date: 05/26/18. Pharmacist note: Patient was admitted and being treated empirically for left diabetic necrotic wounds that are worsening. His WBC is currently within normal limits and he is afebrile; his ESR and CRP are elevated. Patient has a history of PVD and CKD. He receives dialysis on Monday, Monday, and Fridays, with his last dialysis session 05/25 prior to coming to the Emergency Department. Patient received 1000mg of Vancomycin last night and his random this morning came back at 15.9. We will continue him on Vancomycin 1000mg after HD and monitor his random levels. Patient has no history of MRSA or Vancomycin use at [facility]. We will continue to monitor and make adjustments as needed. JAXSON JOSHUA [facility] May 26, 2018 14:16
[2018-05-26] MEDS ORDERED: VANCOMYCIN HCL 1,000 MG, VIAL MATE ADAPTER 1 EACH in D5W 250 ML IV SCH (16:00)
[2018-05-26] MEDS: **VANCO AFTER HD** MISC XX SCH (16:00)
[2018-05-26 22:00] VITALS: BP 162/71
[2018-05-27 06:00] VITALS: BP 140/60
[2018-05-27 06:10] LABS: HEMATOCRIT 30.4 % (42.0-52.0); HEMOGLOBIN 9.5 g/dl (13.5-17.5); MEAN CORPUSCULAR HEMOGLOBIN 30.7 pg (27.0-33.0); MEAN CORPUSCULAR HGB CONC 31.3 g/dl (32.0-36.5); MEAN CORPUSCULAR VOLUME 98.4 fl (80.0-96.0); PLATELET COUNT, AUTOMATED 155 10^3/uL (150-450); RED BLOOD COUNT 3.09 10^6/uL (4.30-6.10)
[2018-05-27 06:35] LABS: CALCIUM LEVEL 8.5 MG/DL (8.8-10.2); CREATININE FOR GFR 7.11 MG/DL (0.70-1.30); GLOMERULAR FILTRATION RATE 8.2 (>49); MAGNESIUM LEVEL 2.1 MG/DL (1.8-2.4); POTASSIUM SERUM 3.9 MEQ/L (3.5-5.1)
[2018-05-27] MEDS: HumaLOG INSULIN (NovoLOG) PER UNIT SC SCH ×4 (07:30→21:41)
[2018-05-27] MEDS: CALCIUM CARBONATE 500 MG CHEW U/D PO SCH ×3 (08:00→17:37)
[2018-05-27] MEDS: (RENVELA) SEVELAMER **CARBONate** 800 MG TAB PO SCH ×3 (08:00→17:37)
[2018-05-27] MEDS: CLOPIDOGREL 75 MG TAB PO SCH (09:00)
[2018-05-27] MEDS: PANTOPRAZOLE 40MG TAB (PROTONIX) PO SCH (09:00)
[2018-05-27] MEDS: PIPERACILLIN/TAZOBACTAM SOD 2.25 GM in D5W MINI-BAG PLUS 50 ML IV SCH ×2 (09:59→21:41)
[2018-05-27] MEDS: CARVedilol 12.5 MG TAB PO SCH ×2 (09:59→21:40)
--- NOTE | 2018-05-27 11:18 | IPNPDOC ---
Date Seen The patient was seen on 05/27/18. Progress Note SUBJECTIVE: 68-year-old male with past medical history of end-stage renal disease on hemodialysis and WF, PAD status post left popliteal artery and left femoral artery angioplasty in November 2017, hypertension, diabetes, coronary disease status post CABG, chronic systolic congestive heart failure present ER with left necrotic foot wound, admitted for Vascular evaluation and treatment. Interval history: Patient reports feeling fine, denies any significant pain in his foot. Afebrile overnight. Preparing for vascular intervention. OBJECTIVE PHYSICAL EXAMINATION: VITAL SIGNS: Please see below. General: No acute distress, Alert Eyes: Normal sclera, EOMI, ADINA HENT: Atraumatic, neck supple, moist mucous membranes Cardiovascular: Normal rate, normal rhythm. No murmurs appreciated. Pulmonary: Clear to auscultation b/l, no wheezing GI: Soft, nontender, nondistended MSK: L. foot with dry necrosis at the tip of the big toe lateral surface of 5th. R. foot with distal big toe darkened/discoloration. Pulses thready/weak bilaterally, worse in L. foot. Skin: Warm and dry. L. foot with dry necrosis at the tip of the big toe lateral surface of 5th. Neuro: CN grossly intact. No focal deficits. Strengths equal b/l. Psych: oriented x 3 LABORATORY DATA, IMAGING STUDIES, MICROBIOLOGY: Please see below. DVT prophylaxis ordered?: HSQ ASSESSMENT AND PLAN: 1. PVD with worsening LLE necrotic wound - ESR elevated. Blood cultures pending. - Afebrile with no leukocytosis. - Vascular team following. Likely digit/partial digit amputation today. - c/w Empiric Abx Vanc/Zosyn at this time. 2. ESRD on HD - HD MWF, has had his session on Monday. - Nephrology consulted and notified. 3. HTN - Resume home meds Norvasc and Coreg. 4. CAD s/p CABG - c/w home meds. - No chest pain at this time. 5. Chronic HFrEF EF 30% - resume home meds. - Not in exacerbation. 6. DM - Accuchecks, ISS. DISPOSITION: Likely home. VS, I&O, 24H, Fishbone Vital Signs/I&O Vital Signs Date Time Temp Pulse Resp B/P (MAP) Pulse Ox O2 Delivery O2 Flow Rate FiO2 05/27/18 09:59 74 140/60 05/27/18 06:00 98.5 18 97 05/26/18 00:21 Room Air I&O- Last 24 Hours up to 6 AM 05/27/18 06:00 Intake Total 1020 ml Output Total 0 ml Balance 1020 ml Laboratory Data 24H LABS Laboratory Tests 2 05/26/18 12:04: Bedside Glucose (Misc Panel) 184H 05/26/18 17:28: Bedside Glucose (Misc Panel) 177H 05/26/18 21:14: Bedside Glucose (Misc Panel) 173H 05/27/18 05:49: Nucleated Red Blood Cells % (auto) 0.0, Anion Gap 10, Glomerular Filtration Rate 8.2L, Blood Urea Nitrogen 43#H, Creatinine 7.11H, Sodium Level 137, Potassium Level 3.9, Chloride Level 97L, Carbon Dioxide Level 30, Calcium Level 8.5L, Magnesium Level 2.1 CBC/BMP Laboratory Tests 05/27/18 05:49 Red Blood Count 3.09 L, Mean Corpuscular Volume 98.4 H, Mean Corpuscular Hemoglobin 30.7, Mean Corpuscular Hemoglobin Concent 31.3 L, Red Cell Distribution Width 14.7 H, Calcium Level 8.5 L Microbiology Microbiology 05/25/18 Blood Culture - Preliminary, Resulted No growth after 24 hours . All specim... 05/25/18 Blood Culture - Preliminary, Resulted No growth after 24 hours . All specim... REGAN PEREIRA MD May 27, 2018 11:18
[2018-05-27] MEDS: **VANCO AFTER HD** MISC XX SCH (13:20)
[2018-05-27 14:00] VITALS: BP 160/70
[2018-05-27] MEDS: ROSUVASTATIN 10 MG TAB (CRESTOR) PO SCH (21:41)
[2018-05-27] MEDS: HEPARIN SOD (PORCINE) 5000 UNITS/ML VIAL SQ SCH (21:41)
[2018-05-27 22:00] VITALS: BP 151/64
[2018-05-28] MEDS: CALCIUM CARBONATE 500 MG CHEW U/D PO SCH ×3 (05:35→17:55)
[2018-05-28] MEDS: (RENVELA) SEVELAMER **CARBONate** 800 MG TAB PO SCH ×3 (05:36→17:55)
[2018-05-28] MEDS: CLOPIDOGREL 75 MG TAB PO SCH (05:36)
[2018-05-28] MEDS: PANTOPRAZOLE 40MG TAB (PROTONIX) PO SCH (05:36)
[2018-05-28] MEDS: CARVedilol 12.5 MG TAB PO SCH ×2 (05:37→20:53)
[2018-05-28 06:00] VITALS: BP 105/83
[2018-05-28 06:36] LABS: HEMATOCRIT 29.9 % (42.0-52.0); HEMOGLOBIN 9.6 g/dl (13.5-17.5); MEAN CORPUSCULAR HEMOGLOBIN 31.1 pg (27.0-33.0); MEAN CORPUSCULAR HGB CONC 32.1 g/dl (32.0-36.5); MEAN CORPUSCULAR VOLUME 96.8 fl (80.0-96.0); PLATELET COUNT, AUTOMATED 157 10^3/uL (150-450); RED BLOOD COUNT 3.09 10^6/uL (4.30-6.10)
[2018-05-28 07:14] LABS: CALCIUM LEVEL 8.5 MG/DL (8.8-10.2); CREATININE FOR GFR 8.89 MG/DL (0.70-1.30); GLOMERULAR FILTRATION RATE 6.3 (>49); MAGNESIUM LEVEL 2.3 MG/DL (1.8-2.4); POTASSIUM SERUM 4.3 MEQ/L (3.5-5.1)
--- NOTE | 2018-05-28 08:12 | IPN ---
DATE: 05/27/2018 Mr. Dykes is seen this morning on his bedside. He is lying in the bed without any acute distress. He is nothing by mouth (n.p.o.) this morning and is waiting to go to operating room (OR) for debridement of his gangrenous left foot toes. He has a gangrenous tip of the first toe and complete gangrenous changes of the fifth toe along with some surrounding skin necrosis. The patient denies any dyspnea, chest pain, nausea, vomiting, fever or chills. He has known history of peripheral vascular disease and has had angioplasties on his lower extremity. On physical examination, temperature 98.5 degrees Fahrenheit, heart rate 74 per minute and respiratory rate 18 per minute. Blood pressure 140/60 mmHg and oxygen saturation 97% on room air. Head is atraumatic. Neck is supple and without jugular venous distention (JVD) or thyroid enlargement. Heart sounds are regular and lungs clear to auscultation. Abdomen: Soft and nontender. Bowel sounds are normal. Extremities have no cyanosis or clubbing. Neurologically, he is at his baseline mentation. Left foot has gangrenous fifth toe and tip of the first toe. Right foot has only minimal skin changes in the first toe. Today's labs show WBC count 7.0, hemoglobin 9.5 and hematocrit 30.4. Platelets 155. Sodium 137, potassium 3.9, CO2 30, BUN 43 and creatinine 7.1. PROBLEMS: 1. End-stage renal disease. The patient is regularly dialyzed on Monday, Monday and Monday schedule. He was last dialyzed on Monday and we will evaluate him tomorrow for next dialysis treatment. 2. Hypertension. Blood pressure is very well controlled on current medications and no changes are being made today. 3. Anemia. His anemia is mild and stable. We will give him Aranesp 100 mcg with his next dialysis treatment. Will also check his CBC again tomorrow morning. 4. Peripheral vascular disease with gangrenous toes left foot. The patient is scheduled for debridement and possible amputation of fifth toe of the left foot. Dr. Blank is following and is planning to do another angiogram.
[2018-05-28] MEDS: HumaLOG INSULIN (NovoLOG) PER UNIT SC SCH ×4 (09:06→21:00)
[2018-05-28] MEDS: PIPERACILLIN/TAZOBACTAM SOD 2.25 GM in D5W MINI-BAG PLUS 50 ML IV SCH ×2 (09:13→21:57)
[2018-05-28] MEDS: HEPARIN SOD (PORCINE) 5000 UNITS/ML VIAL SQ SCH ×2 (10:10→20:53)
[2018-05-28] MEDS ORDERED: HEPARIN 1,000 UNITS/ML 10ML VIAL (FOR RADIOLOGY& DIALYSIS ONLY) IV ONE (12:15)
[2018-05-28] MEDS ORDERED: DARBEPOETIN 100 MCG/0.5 ML *DIALYSIS* SYRINGE (J0882) IV SCH (12:30)
--- NOTE | 2018-05-28 12:31 | IPN ---
DATE: 05/28/2018 Mr. Dykes is seen this morning on his bedside. He was scheduled for debridement of his left foot ischemic gangrene of his fifth toe, but that surgery got canceled. He is upset this morning and is now scheduled for angiogram later this afternoon. The patient denies any nausea, vomiting, dyspnea, chest pain, fever or chills. He is due for dialysis today and we are going to dialyze him this morning and early afternoon so he can be ready for angiogram this afternoon. On physical examination, temperature 97.8 degrees Fahrenheit, heart rate 70 per minute and respiratory rate 16 per minute. Blood pressure 105/83 mmHg and oxygen saturation 96% on room air. Head is atraumatic. Neck is supple and without jugular venous distention (JVD) or thyroid enlargement. Heart sounds are regular and lungs clear to auscultation. Abdomen is soft and nontender and bowel sounds are normal. Extremities have no cyanosis or clubbing. Gangrenous changes on left big toe and fifth toe are same as yesterday. There is no drainage and there is no erythema on his foot. Neurologically, he is awake, alert and at his baseline mentation. Today's labs show WBC count 7.0, hemoglobin 9.6 and hematocrit 29.9. Platelets 157. Sodium 135, potassium 4.3, CO2 30, BUN 53 and creatinine 8.89. PROBLEMS: 1. End-stage renal disease. The patient is being dialyzed this morning. We just brought him down and he will be done with his treatment by about 3:30 at which time he has to go for angiogram. We will remove about 1.5 to 2 liters fluid as tolerated. 2. Anemia related to end-stage renal disease and ongoing inflammatory changes in his foot. We will start with Aranesp 100 mcg once a week. 3. Hypertension. Blood pressure is very well controlled and no changes are being made today. 4. Diabetes. His blood sugars have been reasonably well-controlled and we will continue with current management.
--- NOTE | 2018-05-28 14:34 | IPNPDOC ---
Date Seen The patient was seen on 05/28/18. Progress Note SUBJECTIVE: Patient is frustrated that he did not have his surgery yesterday he insists on going she's having surgery right now he tells me that his left foot is painful he otherwise denies any specific complaints OBJECTIVE PHYSICAL EXAMINATION: VITAL SIGNS: Please see below. GENERAL: Discomfort elderly man accompanied by his the patient does not appear to be in any acute distress HEENT: Cranial nerves grossly intact CARDIOVASCULAR: S1 S2 regular. RESPIRATORY: Clear to auscultation bilaterally. ABDOMINAL: Bowel sounds are present abdomen soft and nontender EXTREMITIES: Dry gangrene of his left first and fifth toe down to the metatarsal LABORATORY DATA, IMAGING STUDIES, MICROBIOLOGY: Please see below. DVT prophylaxis ordered?: Heparin ASSESSMENT AND PLAN: This is a 59-year-old man with peripheral vascular disease and dry gangrene of the left foot. PROBLEMS: 1. Peripheral vascular disease and dry gangrene of the left foot: I degenerative Dr. Jose morning intensive the patient taken to procedure later this afternoon is afebrile without leukocytosis I suspect the patient will require amputation of his necrotic tissue is currently on empiric antibiotics however appears to be dry gangrene to me. Vascular surgery help greatly appreciated. 2. End-stage renal disease: Nephrology greatly appreciated patient is on dialysis Monday was a Monday. 3. Coronary artery disease status post CABG: He is continued as Plavix statin beta hunter. 4. Systolic congestive heart failure EF 40%: Appears to be euvolemic at this time his volume status is optimized via hemodialysis. He is continued on Coreg. His blood pressure is adequately controlled 5. Diabetes mellitus: Continue on insulin sliding scale, fingersticks appear to be well controlled 6. Anemia: Of end-stage renal disease he is receiving Aranesp with dialysis once again nephrology's help is appreciated DISPOSITION: Pending surgical procedure. VS, I&O, 24H, Fishbone Vital Signs/I&O Vital Signs Date Time Temp Pulse Resp B/P (MAP) Pulse Ox O2 Delivery O2 Flow Rate FiO2 05/28/18 06:00 97.8 71 16 105/83 (90) 96 05/26/18 00:21 Room Air I&O- Last 24 Hours up to 6 AM 05/28/18 06:00 Intake Total 530 ml Output Total 120 ml Balance 410 ml Laboratory Data 24H LABS Laboratory Tests 2 05/27/18 17:01: Bedside Glucose (Misc Panel) 193H 05/27/18 20:17: Bedside Glucose (Misc Panel) 86 05/28/18 06:07: Nucleated Red Blood Cells % (auto) 0.0, Anion Gap 9, Glomerular Filtration Rate 6.3L, Blood Urea Nitrogen 53H, Creatinine 8.89*H, Sodium Level 135L, Potassium Level 4.3, Chloride Level 96L, Carbon Dioxide Level 30, Calcium Level 8.5L, Magnesium Level 2.3 CBC/BMP Laboratory Tests 05/28/18 06:07 Red Blood Count 3.09 L, Mean Corpuscular Volume 96.8 H, Mean Corpuscular Hemoglobin 31.1, Mean Corpuscular Hemoglobin Concent 32.1, Red Cell Distribution Width 14.7 H, Calcium Level 8.5 L Microbiology Microbiology 05/25/18 Blood Culture - Preliminary, Resulted No Growth after 48 hours. All Specime... 05/25/18 Blood Culture - Preliminary, Resulted No Growth after 48 hours. All Specime... CHIOMA HOLMAN MD May 28, 2018 14:34
[2018-05-28] MEDS ORDERED: fentaNYL 100 MCG/2 ML INJECTION (J3010) As Ordered ONE (15:26)
[2018-05-28] MEDS ORDERED: HEPARIN 1,000 UNITS/ML 10ML VIAL (FOR RADIOLOGY& DIALYSIS ONLY) As Ordered ONE (15:27)
[2018-05-28] MEDS ORDERED: MIDAZOLAM INJ 2 MG/2 ML VIAL (J2250) As Ordered ONE (15:27)
[2018-05-28] MEDS ORDERED: ISOVUE-300 61% 100ML VIAL (Q9967) As Ordered ONE (15:27)
[2018-05-28] MEDS ORDERED: LIDOCAINE 2% MDV 20 ML VIAL As Ordered ONE (15:28)
[2018-05-28] MEDS ORDERED: BUPIVACAINE HCL 0.5% 10 ML VIAL As Ordered ONE (15:28)
[2018-05-28] MEDS ORDERED: diphenhydrAMINE INJ 50MG/ML VIAL (J1200) As Ordered ONE (15:31)
[2018-05-28] MEDS: **VANCO AFTER HD** MISC XX SCH (16:00)
[2018-05-28 17:30] VITALS: BP 199/89
[2018-05-28 18:00] VITALS: BP 192/85
[2018-05-28 18:58] VITALS: BP 145/75
[2018-05-28] MEDS: SODIUM CHLORIDE 0.9% INJ 10 ML SYR IV PRN ×2 (18:59→22:33)
[2018-05-28 20:00] VITALS: BP 168/72
[2018-05-28] MEDS: ROSUVASTATIN 10 MG TAB (CRESTOR) PO SCH (20:53)
[2018-05-28 22:00] VITALS: BP 155/66
[2018-05-29 06:00] VITALS: BP 144/65
[2018-05-29] MEDS ORDERED: SODIUM CHLORIDE 0.9% INJ 10 ML SYR IV SCH (06:00)
[2018-05-29 06:38] LABS: HEMATOCRIT 32.1 % (42.0-52.0); HEMOGLOBIN 10.3 g/dl (13.5-17.5); MEAN CORPUSCULAR HGB CONC 32.1 g/dl (32.0-36.5); MEAN CORPUSCULAR VOLUME 96.7 fl (80.0-96.0); PLATELET COUNT, AUTOMATED 141 10^3/uL (150-450); RED BLOOD COUNT 3.32 10^6/uL (4.30-6.10); WHITE BLOOD COUNT 6.9 10^3/uL (4.0-10.0)
[2018-05-29] MEDS ORDERED: diphenhydrAMINE INJ 50MG/ML VIAL (J1200) As Ordered ONE (06:48)
[2018-05-29] MEDS ORDERED: HEPARIN 1,000 UNITS/ML 10ML VIAL (FOR RADIOLOGY& DIALYSIS ONLY) As Ordered ONE (06:48)
[2018-05-29] MEDS ORDERED: BUPIVACAINE HCL 0.5% 10 ML VIAL As Ordered ONE (06:49)
[2018-05-29] MEDS ORDERED: LIDOCAINE 2% MDV 20 ML VIAL As Ordered ONE (06:49)
[2018-05-29] MEDS ORDERED: ISOVUE-300 61% 100ML VIAL (Q9967) As Ordered ONE (06:49)
[2018-05-29 06:57] LABS: CALCIUM LEVEL 8.8 MG/DL (8.8-10.2); CREATININE FOR GFR 6.07 MG/DL (0.70-1.30); GLOMERULAR FILTRATION RATE 9.8 (>49); MAGNESIUM LEVEL 2.2 MG/DL (1.8-2.4); POTASSIUM SERUM 4.1 MEQ/L (3.5-5.1)
[2018-05-29] MEDS ORDERED: fentaNYL 100 MCG/2 ML INJECTION (J3010) As Ordered ONE (07:57)
[2018-05-29] MEDS ORDERED: MIDAZOLAM INJ 2 MG/2 ML VIAL (J2250) As Ordered ONE (07:57)
[2018-05-29 08:16] LABS: VANCOMYCIN RANDOM 22.3 UG/ML
[2018-05-29 09:00] VITALS: BP 181/157
[2018-05-29] MEDS: HEPARIN SOD (PORCINE) 5000 UNITS/ML VIAL SQ SCH (09:00)
[2018-05-29] MEDS: CALCIUM CARBONATE 500 MG CHEW U/D PO SCH ×2 (09:21→12:13)
[2018-05-29 09:22] VITALS: BP 144/65
[2018-05-29] MEDS: CARVedilol 12.5 MG TAB PO SCH (09:22)
[2018-05-29] MEDS: (RENVELA) SEVELAMER **CARBONate** 800 MG TAB PO SCH ×2 (09:22→12:13)
[2018-05-29] MEDS: PANTOPRAZOLE 40MG TAB (PROTONIX) PO SCH (09:22)
[2018-05-29] MEDS: CLOPIDOGREL 75 MG TAB PO SCH (09:22)
[2018-05-29] MEDS: PIPERACILLIN/TAZOBACTAM SOD 2.25 GM in D5W MINI-BAG PLUS 50 ML IV SCH (09:23)
[2018-05-29] MEDS: HumaLOG INSULIN (NovoLOG) PER UNIT SC SCH ×2 (09:23→12:13)
[2018-05-29 09:30] VITALS: BP 150/76
[2018-05-29 10:30] VITALS: BP 136/63
[2018-05-29 12:30] VITALS: BP 147/64
--- NOTE | 2018-05-29 13:56 | IPN ---
DATE: 05/29/2018 The patient is seen and examined this morning at the bedside. He denies any complaints. He reports he went for a vascular procedure yesterday and also tolerated dialysis yesterday without any issues with 2 liters of fluid removed. He is discharge pending. Vital Signs: Temperature 98.5, pulse 82, respiratory rate 18, blood pressure 136/63, saturating 97% on room air. General: Patient is seen lying in bed, an elderly male, awake, alert, oriented, in no acute distress, pleasant, chronic speech impediment. Neck is supple. Jugular veins are not elevated. Heart sounds are regular. Lungs are clear to auscultation. The abdomen is soft and nontender. Bowel sounds are normal. Extremities have no cyanosis or clubbing. The left foot is dressed and not examined. His upper extremity fistula is patent. Neurologic: He is awake, alert and at his baseline mentation. LABS: White count 6.9, hemoglobin 10.3, platelets 141. Sodium 136, potassium 4.1, bicarbonate 28, magnesium 2.2. INPATIENT MEDICATIONS: Reviewed by myself and no change from prior. PROBLEMS: 1. End-stage renal disease on hemodialysis on a Monday, Monday and Monday schedule. The patient's volume status and electrolytes are acceptable. He was dialyzed yesterday with 2 liters of fluid removed. Next treatment will be on Monday. 2. Hypertension. Blood pressures are acceptable and no change is being made to his current antihypertensive medication. 3. Anemia related to end stage renal disease and chronic inflammation. Hemoglobin is at goal and the patient continues on his usual Aranesp. 4. Peripheral vascular disease and dry gangrene of the left foot. The patient is status post vascular procedure yesterday and he will followup further with Dr. Blank.
--- NOTE | 2018-05-29 16:47 | DS.PDOC ---
Discharge Summary General Date of Admission May 25, 2018 at 23:50 Date of Discharge 05/29/18 Discharge Summary PROCEDURES PERFORMED DURING STAY: Lower extremity angiography on 05/28/18 Left leg angioplasty on 05/29/18 DISCHARGE DIAGNOSES: Peripheral vascular disease Dry gangrene of toes s/p angioplasty of left leg COMPLICATIONS/CHIEF COMPLAINT: Ischemic Necrosis Of Toe. HISTORY OF PRESENT ILLNESS: See history and physical HOSPITAL COURSE: This is a 68-year-old man with PMH of ESRD, Diabetes, periph eral neuropathy, peripheral vascular disease , CAD, with prior coronary artery bypass graft (CABG) in 2018, history of multiple strokes affecting both the left and right sides with residual paresis, foot drops left > right, hyperlipidemia, Systolic CHF with EF of 30%, BPH, ischemic ulcers of the left lower extremity. He has had a prior angioplasty in left lower extremity status post left poplite al artery angioplasty and left superficial femoral artery angioplasty back in [place] [address] Blank. and dry gangrene of the left foot. Again had left superficial femoral and left popleteal artery angioplasty and stent placement of left leg in April 2018 followed by a stay in acute rehab till 05/10/18. Admitted this time with worsening of dry gangrene of the toes on the left foot and new gangrene on the toes of the right foot. 1. Peripheral vascular disease with dry gangrene of toes of both feet: s/p angiography of both legs showed occlusion of the stent on the left so had repeat angioplasty and stent placement on the left. There is some obstruction on the right also. Follow up with Dr Blank in office. 2. End-stage renal disease: Continue maintenance HD on mon, mon, monday. 3. Coronary artery disease status post CABG: He is continued as Plavix , statin beta hunter. 4. Systolic congestive heart failure EF 40%: Appears to be euvolemic at this time his volume status is optimized via hemodialysis. He is continued on Coreg. His blood pressure is adequately controlled 5. Diabetes mellitus: Continue on insulin sliding scale, fingersticks appear to be well controlled 6. Anemia: Of end-stage renal disease he is receiving Aranesp with dialysis once again nephrology's help is appreciated DISCHARGE MEDICATIONS: Please see below. ALLERGIES: Please see below. PHYSICAL EXAMINATION ON DISCHARGE: VITAL SIGNS: Please see below. GENERAL: Discomfort elderly man accompanied by his the patient does not appear to be in any acute distress HEENT: Cranial nerves grossly intact CARDIOVASCULAR: S1 S2 regular. RESPIRATORY: Clear to auscultation bilaterally. ABDOMINAL: Bowel sounds are present abdomen soft and nontender EXTREMITIES: Dry gangrene of his left first and fifth toe down to the metatarsal, Also right first and second toe tips. LABORATORY DATA: Please see below. ACTIVITY: [As tolerated]. DIET: Carb consistent. DISPOSITION: 01 Home, Self-Care. DISCHARGE INSTRUCTIONS: Follow up PMD in [address] Blank in 1 to 2 weeks DISCHARGE CONDITION: [Stable]. TIME SPENT ON DISCHARGE: Greater than 30 minutes. Vital Signs/I&Os Vital Signs Date Time Temp Pulse Resp B/P (MAP) Pulse Ox O2 Delivery O2 Flow Rate FiO2 05/29/18 12:30 98.6 79 17 147/64 (91) 96 05/26/18 00:21 Room Air I&O- Last 24 Hours up to 6 AM 05/29/18 05:59 Intake Total 570 ml Output Total 2000 ml Balance -1430 ml Laboratory Data Labs 24H Laboratory Tests 2 05/28/18 17:32: Bedside Glucose (Misc Panel) 113 05/28/18 21:10: Bedside Glucose (Misc Panel) 179H 05/29/18 06:01: Nucleated Red Blood Cells % (auto) 0.0, Anion Gap 9, Glomerular Filtration Rate 9.8L, Blood Urea Nitrogen 31H, Creatinine 6.07H, Sodium Level 136, Potassium Level 4.1, Chloride Level 99, Carbon Dioxide Level 28, Calcium Level 8.8, Magnesium Level 2.2, Random Vancomycin Level 22.3 05/29/18 12:07: Bedside Glucose (Misc Panel) 136H CBC/BMP Laboratory Tests 05/29/18 06:01 Red Blood Count 3.32 L, Mean Corpuscular Volume 96.7 H, Mean Corpuscular Hemoglobin 31.0, Mean Corpuscular Hemoglobin Concent 32.1, Red Cell Distribution Width 14.6 H, Calcium Level 8.8 FSBS Laboratory Tests Test 05/28/18 17:32 05/28/18 21:10 05/29/18 12:07 Range/Units Bedside Glucose (Misc Panel) 113 179 136 80-115 MG/DL Microbiology Microbiology 05/25/18 Blood Culture - Preliminary, Resulted No Growth after 72 hours. All specime... 05/25/18 Blood Culture - Preliminary, Resulted No Growth after 72 hours. All specime... Discharge Medications Scheduled Amlodipine Besylate (Amlodipine Besylate) 2.5 Mg Tablet, 2.5 MG PO QHS, (Reported) Calcitriol (Calcitriol) 0.25 Mcg Cap, 0.25 MCG PO 3XW, (Reported) RECEIVES AT DIALYSIS ON MON, MON, MON Calcium Carbonate (Tums Ultra) 1,000 Mg Chw, 1,000 MG PO WM, (Reported) Carvedilol (Carvedilol) 12.5 Mg Tablet, 12.5 MG PO BID, (Reported) Clopidogrel Bisulfate (Clopidogrel) 75 Mg Tab, 75 MG PO DAILY, (Reported) Ergocalciferol (Vitamin D2) (Vitamin D2) 50,000 Unit Cap, 50,000 UNIT PO 1XWK, (Reported) TAKES ON WEDNESDAYS Folic Acid/Vit B Complex and C (Radha-Haja Tablet) 1 Tab Tab, 1 TAB PO DAILY, (Reported) Insulin Human NPH (Humulin N) 100 Unit/1 Ml Vial, 1 DOSE SC DAILY, (Reported) SLIDING SCALE; REPORTED USUALLY BETWEEN 2 AND 4 UNITS Pantoprazole Sodium (Protonix) 40 Mg Tab, 40 MG PO DAILY, (Reported) Rosuvastatin Calcium (Rosuvastatin Calcium) 10 Mg Tablet, 10 MG PO QHS, (Reported) Sevelamer Carbonate (Renvela) 800 Mg Tab, 1,600 MG PO WM, (Reported) Scheduled PRN Acetaminophen (Acetaminophen) 500 Mg Tablet, 1,000 MG PO QID PRN for PAIN, (Reported) Cetirizine HCl (Cetirizine HCl) 10 Mg Tablet, 10 MG PO DAILY PRN for ALLERGIES, (Reported) Allergies Coded Allergies: aspirin (Verified Allergy, Severe, CLOSES AIRWAY, 05/02/18) YENNY PLASCENCIA MD May 29, 2018 14:09
--- NOTE | 2018-06-13 10:31 | REPIR ---
DATE OR PROCEDURE: 05/28/2018 PREOPERATIVE DIAGNOSIS: Right lower extremity ischemia. POSTOPERATIVE DIAGNOSIS: Right lower extremity ischemia. PROCEDURE: Right lower extremity angiogram. SURGEON: Dr. Maddy Blank. DIGITAL PRE PRESS OPERATOR: Marcia Bejarano and Savanah Herrera. ANESTHESIA: Local ESTIMATED BLOOD LOSS: Minimal. FLUID: 100 mL COMPLICATIONS: None. DRAINS: None. SPECIMENS: None. IMPLANTS: None. INDICATION: The patient is a 68-year-old male with end-stage renal disease, diabetes mellitus and nonhealing left foot ulcers and worsening pain in the left foot. The patient undergo an angiogram with possible angioplasty, stent and/or atherectomy. Risks, benefits and alternative options were discussed with the patient. DESCRIPTION OF PROCEDURE: The patient was taken to the angiography suite, placed supine on the angiography room table and the prepped and draped in a standard surgical fashion. The right common femoral artery was cannulated. The catheter advanced up and over the bifurcation, placed in the left lower extremity and an angiogram was performed. Catheter was then removed over a Bentson wire. A MYNX closure was used close the arteriotomy in the right common femoral artery with an additional 10 minutes of adjunctive pressure applied for hemostasis. Dressings were then applied. The patient tolerated procedure well. All instrument, sponge and needle counts were correct at the end of the case. There were no complications. Dr. Blank was present for directed the entire case. The patient was transferred to the holding area and subsequent to the floor in stable condition. [facility]
[2018-06-15] MEDS ORDERED: NEUR100C PO (12:58)
--- NOTE | 2018-06-15 14:27 | REPIR ---
DATE OF PROCEDURE: 05/28/2018 ATTENDING SURGEON: Dr. Maddy Blank DIRECTOR OF SUSTAINABILITY: PREOPERATIVE DIAGNOSES: 1. End-stage renal disease. 2. Dysfunctional left arm AV fistula. POSTOPERATIVE DIAGNOSES: 1. End-stage renal disease. 2. Dysfunctional left arm AV fistula. PROCEDURE: Left arm AV fistulogram. INDICATION: The patient is a 68-year-old male with end-stage renal disease who dialyzes through a left arm arteriovenous fistula who has had difficulty with pulsation within the fistula. The patient will undergo a fistulogram. ANESTHESIA: Local. ESTIMATED BLOOD LOSS: Minimal. IV FLUIDS: 100 mL COMPLICATIONS: None. DRAINS: None. SPECIMENS: None. IMPLANTS: None. PROCEDURE: The patient was taken to the angiography suite, placed supine on the angiography room table, and then prepped and draped in a standard surgical fashion. The left arm arteriovenous fistula was cannulated and a fistulogram was performed showing no intervention was required. The sheath was removed and manual compression was applied at the puncture site for hemostasis. Dressings were then applied. The patient tolerated the procedure well. All instrument, sponge and needle counts were correct at the end the case. There were no complications. Dr. Blank was present for and directed the entire case. The patient was transferred to the holding and subsequently to the floor in stable condition.
--- NOTE | 2018-07-14 14:52 | RO ---
DATE OF PROCEDURE: 05/28/2018 ATTENDING SURGEON: Maddy Blank MD PREOPERATIVE DIAGNOSIS: Right lower extremity nonhealing ulcer. POSTOPERATIVE DIAGNOSIS: Right lower extremity nonhealing ulcer. PROCEDURE: Right lower extremity angiogram. INDICATION: The patient has right lower extremity nonhealing ulcer and will undergo a right lower extremity angiogram. ANESTHESIA: Local. ESTIMATED BLOOD LOSS: Minimal. INTRAVENOUS (IV) FLUID: 150 mL. COMPLICATIONS: None. DRAINS: None. SPECIMENS: None. DESCRIPTION OF PROCEDURE: The patient was taken to the angiography suite, placed supine on the angiography room table, and then prepped and draped in a standard surgical fashion. The left common femoral artery was cannulated. A catheter placed in the right common femoral, and a right lower extremity angiogram was performed showing severe tibioperoneal arterial atherosclerotic occlusive disease. Catheters and wires were removed, and a Mynx closure device was used to close the arteriotomy in the left common femoral artery with an additional 10 minutes of adjunctive pressure applied for hemostasis. Dressings were then applied. The patient tolerated the procedure well. All instrument, sponge, and needle counts were correct at the end of the case. There were no complications. Dr. Blank was present for and directed the entire case. The patient was transferred to the holding area and subsequently to the floor in stable condition.
--- NOTE | 2018-07-14 14:57 | RO ---
DATE OF PROCEDURE: 05/28/2018 PREOPERATIVE DIAGNOSIS: Poor intravenous (IV) access. POSTOPERATIVE DIAGNOSIS: Poor intravenous access. PROCEDURE: Ultrasound-guided right basilic vein midline catheter placement with venogram. INDICATION: The patient is a 68-year-old male with end-stage renal disease and poor IV access who requires access for antibiotic therapy and will undergo placement of a right upper extremity midline with possible placement of a peripherally inserted central catheter (PICC). ANESTHESIA: Local. ESTIMATED BLOOD LOSS: Minimal. IV FLUID: None. COMPLICATIONS: None. DRAINS: None. SPECIMENS: None. IMPLANTS: None. DESCRIPTION OF PROCEDURE: The patient was taken to the angiography suite, placed supine on the angiography room table, and then prepped and draped in a standard surgical fashion. Ultrasound was used to cannulate the right basilic vein, and the midline catheter was advanced over a wire; and there was difficulty aspirating through the midline catheter. A venogram was performed showing the basilic vein to be widely patent into the central venous system. The catheter was flushed and then aspirate easily. Dressings were applied. The patient tolerated the procedure well. All instrument, sponge, and needle counts were correct at the end of the case. There were no complications. Dr. Blank was present for and directed the entire case. The patient was transferred to the holding area and subsequently to the floor in stable condition.
--- NOTE | 2018-07-14 15:01 | RO ---
DATE OF PROCEDURE: 05/29/2018 ATTENDING SURGEON: Maddy Blank MD FERRY ENGINEER: PREOPERATIVE DIAGNOSIS: Nonhealing left lower extremity ulcers. POSTOPERATIVE DIAGNOSIS: Nonhealing left lower extremity ulcers. PROCEDURE: Left lower extremity angiogram, left superficial femoral and popliteal artery angioplasty. ANESTHESIA: DESCRIPTION OF PROCEDURE: The patient was taken to the angiography suite, placed supine on the angiography room table, and then prepped and draped in a standard surgical fashion. The right common femoral artery was cannulated with a micropuncture needle. A catheter was placed in left common femoral artery, and an angiogram was performed showing severe stenosis in the left distal superficial femoral and popliteal artery, as well as severe tibioperoneal arterial atherosclerotic occlusive disease. The distal left superficial femoral and popliteal artery underwent angioplasty with a 6 mm balloon. A completion angiogram showed resolution of the stenosis with good filling distally via collaterals into the foot. Catheters and wires were removed. A Mynx closure device was used to close the arteriotomy in the right common femoral artery with an additional 10 minutes of adjunctive pressure applied for hemostasis. Dressings were then applied. The patient tolerated the procedure well. All instrument, sponge, and needle counts were correct at the end of the case. There were no complications. Dr. Blank was present for and directed the entire case. The patient was transferred to the holding area and subsequently to the floor in stable condition.
== END 2018-05-29 13:30 | disposition home or self-care (01) | DRG 252 ==
LOC: M ED 17:15 → M ED INP 23:50 → M MS5PR 05-26 01:25
PROVIDERS: ADMIT Internal Medicine; ATTEND Internal Medicine
PROC: 5A1D70Z Performance of Urinary Filtration, Intermittent, Less than 6 Hours Per Day (ICD-10-PCS; 2018-05-28)
PROC: B40GYZZ Plain Radiography of Left Lower Extremity Arteries using Other Contrast (ICD-10-PCS; 2018-05-28)
PROC: 05HB33Z Insertion of Infusion Device into Right Basilic Vein, Percutaneous Approach (ICD-10-PCS; 2018-05-28)
PROC: 047L3DZ Dilation of Left Femoral Artery with Intraluminal Device, Percutaneous Approach (ICD-10-PCS; principal; 2018-05-29)
PROC: 047M3DZ Dilation of Right Popliteal Artery with Intraluminal Device, Percutaneous Approach (ICD-10-PCS; 2018-05-29)
DX: E11.52 Type 2 diabetes mellitus with diabetic peripheral angiopathy with gangrene (principal); N18.6 End stage renal disease; I13.2 Hypertensive heart and chronic kidney disease with heart failure and with stage 5 chronic kidney disease, or end stage renal disease; I50.22 Chronic systolic (congestive) heart failure; E11.22 Type 2 diabetes mellitus with diabetic chronic kidney disease; I25.10 Atherosclerotic heart disease of native coronary artery without angina pectoris; I70.292 Other atherosclerosis of native arteries of extremities, left leg; E78.5 Hyperlipidemia, unspecified; E11.621 Type 2 diabetes mellitus with foot ulcer; D63.1 Anemia in chronic kidney disease; E11.42 Type 2 diabetes mellitus with diabetic polyneuropathy; L97.524 Non-pressure chronic ulcer of other part of left foot with necrosis of bone; Z95.828 Presence of other vascular implants and grafts; Z79.4 Long term (current) use of insulin; Z79.899 Other long term (current) drug therapy; Z99.2 Dependence on renal dialysis; Z88.6 Allergy status to analgesic agent; Z79.02 Long term (current) use of antithrombotics/antiplatelets

== ENCOUNTER → 2018-06-14 | Outpatient (CLI) | payer MEDICARE, OTHER ==
[~2018-06-14] MED LIST changes: +ACET-683 PO; +ALL10TAB28 PO; +INSUNSD SC; +NEUR100C PO
--- NOTE | 2018-06-14 11:34 | REP ---
Bilateral lower extremity arterial Doppler ultrasound: History: Nonhealing ulcer, extremity wounds, low ankle-brachial indices. The patient is status post left-sided stent the femoral artery. Findings: Ankle brachial index on the right is low at 0.72. Noncompressible vessels were encountered on the left precluding MELISSA measurement. Moderate atherosclerotic plaquing is visible diffusely, left more extensively than right. Heavily calcified plaquing is seen in the distal calf and ankle vessels. The left femoral stent appears patent. Elevated velocities are encountered in the left posterior tibial artery which may be related to hyperemia as secondary to the wound. Poor flow is seen in the left anterior tibial artery. Distal posterior tibial artery flow was not observed on the right although this vessel is heavily calcified. Biphasic and monophasic waveforms are observed bilaterally. Velocity chart right lower extremity arteries: CF A 137 cm/S Profunda 136 Proximal SFA 80 Mid SFA 80 Distal SFA 66 Popliteal 45 Proximal AT A 56 Tibioperoneal trunk 72 Proximal MEDICAL FRONT DESK SPECIALIST 45 Distal MEDICAL FRONT DESK SPECIALIST flow not seen Distal AT A 32 Velocity chart left lower extremity arteries: CF A 146 cm/S Profunda 111 Proximal SFA 115 Mid SFA 85 Distal SFA 53 Popliteal 44 Proximal AT A 82 Tibioperoneal trunk 86 Proximal MEDICAL FRONT DESK SPECIALIST 115 Distal MEDICAL FRONT DESK SPECIALIST 168 Distal AT A 21 Electronically Signed by Mani Medina MD 06/14/2018 11:25 A
== END ==
LOC: M RAD 08:59
PROVIDERS: ATTEND Surgery
DX: E11.621 Type 2 diabetes mellitus with foot ulcer (principal); I96 Gangrene, not elsewhere classified

== ENCOUNTER 2018-06-20 06:00 | Day surgery (SDC) | payer MEDICARE, OTHER ==
[~2018-06-20] VITALS: Ht 170.2 cm; Wt 78.9 kg
[~2018-06-20 06:00] MED LIST changes: +LIDOCAINE 1% MDV 20ML VIAL SQ PRN
[2018-06-20] MEDS ORDERED: LR 1,000 ML IV ONE (06:30)
[2018-06-20] MEDS ORDERED: BUPIVACAINE HCL 0.5% 10 ML VIAL As Ordered ONE (07:09)
[2018-06-20] MEDS ORDERED: dexameTHASONE 4 MG/ML 1ML VIAL (J1100) As Ordered ONE ×2 (07:09→07:17)
[2018-06-20] MEDS ORDERED: LIDOCAINE 1% MDV 20ML VIAL As Ordered ONE (07:09)
[2018-06-20] MEDS ORDERED: MIDAZOLAM INJ 2 MG/2 ML VIAL (J2250) As Ordered ONE (07:16)
[2018-06-20] MEDS ORDERED: fentaNYL 100 MCG/2 ML INJECTION (J3010) As Ordered ONE (07:16)
[2018-06-20] MEDS ORDERED: PROPOFOL 200 MG/20 ML VIAL As Ordered ONE (07:17)
[2018-06-20] MEDS ORDERED: LIDOCAINE 2% INJ 100 MG/5 ML SDV (FOR ANES.) As Ordered ONE (07:18)
[2018-06-20] MEDS ORDERED: NS 1,000 ML IV SCH (07:30)
[2018-06-20] MEDS ORDERED: HYDR-3713 PO (08:25)
[2018-06-20 09:45] VITALS: BP 166/73
--- NOTE | 2018-06-20 12:31 | RO ---
DATE OF PROCEDURE: 06/20/2018 PREPROCEDURE DIAGNOSIS: Left foot gangrene and ulceration. POSTPROCEDURE DIAGNOSIS: Left foot gangrene and ulceration. PROCEDURE: Left fifth toe and metatarsal head excision with stage IV wound debridement including bone. SURGEON: Dr. Shantanu Gagnon CERTIFIED SURGICAL TECH/FIRST ASSISTANT: None. ANESTHESIA: Monitored anesthesia care. Preoperative injection of 20 mL of 1:1 mixture of 1% lidocaine plain and 1/2% Marcaine plain. ESTIMATED BLOOD LOSS: Minimal. MATERIALS: None. COMPLICATIONS: None. SPECIMENS: Left fifth toe and metatarsal head. CONDITION: Stable. DESCRIPTION OF PROCEDURE: Ayaan Dykes is a 68-year-old male who presents to [facility] with ulcerations and gangrene to his left foot. Over the last two months, he has had worsening condition of his vascular status and developed gangrenous changes to his toes. The left fifth toe is completely blackened eschar with gangrenous changes to the tips of the toes on the left foot as well as his heel. He has undergone numerous vascular interventions. He has been following with Dr. Blue who recommends hyperbaric oxygen therapy (HBO) once the necrotic tissue is resected. He presents today for surgical correction. The patient site and side were identified and marked in preoperative area. Consent was reviewed and obtained. All risks, complications and alternatives to the procedure were explained to the patient in detail and all questions were answered. The patient was brought to the operating room and placed on the operating room in supine position. Monitored anesthesia care was provided by the anesthesia team. Preoperative injection of 20 mL of 1:1 mixture of 1% lidocaine plain and 0.50% Marcaine plain were injected to the left foot. The left foot was prepped and draped in normal sterile fashion. No tourniquet was used during the procedure. Ancef was given preoperatively. Attention was first paid to the hallus. There was a distal eschar at the tip of the toe. This was removed with #15 blade. Underneath the toe, the bone was black in appearance of the distal phalanx. The black portions of the bone were resected using rongeur until good reasonably healthy bone was identified. Following this, gangrenous portions of the second toe and the heel were debrided with #15 blade. No bone was exposed on these sites. Attention was then paid to the fifth toe. The fifth toe was fully gangrenous and eschar. This was first disarticulated at the fifth metatarsal phalangeal joint with #15 blade. The metatarsal head was inspected and noted to be fractured and soft in appearance with persisting gangrenous changes to the tissues surrounding. This was excised using sagittal saw and also sent for pathology. Further debridement was performed removing the joint capsule and tendons that were non viable as well as some nonviable fat until no significant gangrenous tissue remained in the wound. Each site was then irrigated with normal saline and packed using saline soaked gauze. Sterile dressings were applied. The patient was brought to the postanesthesia care unit (PACU) with vital signs stable and neurovascular status intact. He will be weight bearing as tolerated. He will be following up with Dr. Blue for HBO evaluation and following up with myself on Monday.
== END 2018-06-20 09:42 | disposition home or self-care (01) ==
LOC: M SDC 06:00
PROVIDERS: ATTEND Podiatrist Foot & Ankle Surgery
DX: E11.52 Type 2 diabetes mellitus with diabetic peripheral angiopathy with gangrene (principal); I25.10 Atherosclerotic heart disease of native coronary artery without angina pectoris; I10 Essential (primary) hypertension; Z95.1 Presence of aortocoronary bypass graft; E78.5 Hyperlipidemia, unspecified; Z79.4 Long term (current) use of insulin; M10.9 Gout, unspecified; Z86.73 Personal history of transient ischemic attack (TIA), and cerebral infarction without residual deficits; I42.9 Cardiomyopathy, unspecified; Z99.2 Dependence on renal dialysis; N18.6 End stage renal disease; I50.22 Chronic systolic (congestive) heart failure; B35.1 Tinea unguium; Z79.01 Long term (current) use of anticoagulants; Z79.82 Long term (current) use of aspirin; Z79.899 Other long term (current) drug therapy
CPT/HCPCS: 11043; 11044; 28810; 36415; 84132; 88304; 88311; J0690; J1100; J2250; J3010

== ENCOUNTER → 2018-06-29 | Outpatient (REF) | payer MEDICARE, OTHER ==
[~2018-06-29] MED LIST changes: -LIDOCAINE 1% MDV 20ML VIAL SQ PRN
== END ==
LOC: M LAB REF 15:09
PROVIDERS: ATTEND Surgery
DX: E11.621 Type 2 diabetes mellitus with foot ulcer (principal)

== ENCOUNTER 2018-07-06 06:41 | Observation (INO) | payer MEDICARE, OTHER ==
[2018-07-06] MEDS ORDERED: fentaNYL 100 MCG/2 ML INJECTION (J3010) As Ordered ONE (06:46)
[2018-07-06] MEDS ORDERED: BUPIVACAINE HCL 0.5% 10 ML VIAL As Ordered ONE (06:46)
[2018-07-06] MEDS ORDERED: MIDAZOLAM INJ 2 MG/2 ML VIAL (J2250) As Ordered ONE (06:46)
[2018-07-06] MEDS ORDERED: PROTAMINE SULF INJ 50 MG/5 ML VIAL (J2720) As Ordered ONE (06:46)
[2018-07-06] MEDS ORDERED: diphenhydrAMINE INJ 50MG/ML VIAL (J1200) As Ordered ONE (06:46)
[2018-07-06] MEDS ORDERED: HEPARIN 1,000 UNITS/ML 10ML VIAL (FOR RADIOLOGY& DIALYSIS ONLY) As Ordered ONE (06:47)
[2018-07-06] MEDS ORDERED: ISOVUE-300 61% 50ML VIAL (Q9967) As Ordered ONE (06:47)
[2018-07-06] MEDS ORDERED: LIDOCAINE 2% MDV 20 ML VIAL As Ordered ONE (06:47)
[2018-07-06] MEDS ORDERED: ONDANSETRON 4MG/2ML VIAL (J2405) As Ordered ONE (10:26)
[2018-07-06] MEDS ORDERED: ISOVUE-370 76% 100ML VIAL (Q9967) As Ordered ONE (10:55)
--- NOTE | 2018-07-06 11:34 | REP ---
CT Head without contrast HISTORY: Ischemia COMPARISON: 08/17/2017 An area of decreased attenuation is present in the left basal ganglia. This represents an old lacunar infarction. Areas of decreased attenuation are present in the periventricular and subcortical white matter. This represents small-vessel ischemic disease. There is no intraparenchymal hemorrhage, acute infarct, mass or midline shift. The ventricular system and cortical sulci are dilated consistent with mild volume loss. There is no extra cerebral collection. There is no fracture. The visualized sinuses are clear. IMPRESSION: 1. Old left basal ganglia lacunar infarction. 2. Small vessel ischemic disease. 3. Mild volume loss. Electronically Signed by Cyrus German MD 07/06/2018 11:24 A
--- NOTE | 2018-07-06 11:47 | REP ---
CT PULMONARY ANGIOGRAM: With IV contrast. HISTORY: Ischemia. Renal failure scheduled for dialysis today. COMPARISON STUDIES: Comparison CT study August 20, 2017. CONTRAST DOSE: 100 mL of Isovue [address] TECHNIQUE: Helical scanning is acquired and overlapping 1.5 mm and contiguous 3 mm axial images are reformatted. In addition, maximum intensity projection and multiplanar re-formation images are generated in sagittal and coronal imaging projections. CT PULMONARY ANGIOGRAPHIC FINDINGS: There is good opacification of the pulmonary arterial tree. There is no CT evidence of pulmonary embolism. Thoracic aorta enhances homogeneously without evidence of dissection or aneurysm. Minimal vascular calcification is noted. There is an air-fluid level in the upper thoracic esophagus and some fluid is seen throughout the esophagus. No definite mass lesion is observed. Vascular calcification is seen in the coronary artery distribution. There are small bilateral pleural effusions. Left is slightly larger than right. No significant pericardial effusion is seen. No hilar or mediastinal mass or adenopathy is observed. There is some fissural fluid on the right side and to a lesser extent left side. There is no significant pulmonary nodule or mass lesion. No infiltrate is observed. Heart size is borderline. There is mild bilateral gynecomastia. No acute bony abnormality is appreciated. Prior sternotomy wires are seen. IMPRESSION: Small bilateral pleural effusions. No CT evidence of pulmonary embolus. No evidence of aneurysm or dissection. Mild fluid distension of the thoracic esophagus question reflux. Electronically Signed by Mani Medina MD 07/06/2018 04:01 P
[2018-07-06 11:53] LABS: BASO % 0.2 % (0.0-1.0); EOS % 0.5 % (0.0-3.0); HEMATOCRIT 27.8 % (42.0-52.0); HEMOGLOBIN 8.9 g/dl (13.5-17.5); LYMPH # 0.5 10^3/uL (1.5-4.5); LYMPH % 8.2 % (24.0-44.0); MEAN CORPUSCULAR HEMOGLOBIN 32.8 pg (27.0-33.0); MEAN CORPUSCULAR VOLUME 102.6 fl (80.0-96.0); MONO # 0.1 10^3/uL (0.0-0.8); MONO % 1.1 % (0.0-5.0); NEUTROPHILS # 5.5 10^3/uL (1.8-7.7); PLATELET COUNT, AUTOMATED 177 10^3/uL (150-450); RED BLOOD COUNT 2.71 10^6/uL (4.30-6.10); WHITE BLOOD COUNT 6.3 10^3/uL (4.0-10.0)
--- NOTE | 2018-07-06 11:55 | REP ---
CT ABDOMEN AND PELVIS WITH IV CONTRAST: HISTORY: Ischemia. CT CONTRAST DOSE: 100 mL of intravenous Isovue [address] abdomen study is from December 14, 2015. CT FINDINGS: Preliminary recruitment manager radiograph demonstrates an unremarkable bowel gas pattern. There are small bilateral pleural effusions. There is a tiny sliver of fluid around the liver. There is no other evidence of ascites. The liver is normal in size, homogeneous in texture. Spleen measures 13.7 cm in greatest transverse dimension and is considered mildly enlarged, previous dimension 12.7 cm. No pancreatic abnormality is seen. No adrenal lesion is observed. The gallbladder surgically absent. No biliary ductal dilation is seen. Vascular calcification is noted in a normal caliber aorta. The celiac and superior mesenteric axes are patent. There is some plaque visible in the proximal superior mesenteric artery producing approximate 50% narrowing. Calcification is seen in the distal to this in the mid superior mesenteric artery. The RANDOLPH is calcified and not definitely opacified proximally. There is mild mural thickening in the colon question enterocolitis. There is some soft tissue and subcutaneous edema in the right groin anterior to the common femoral artery, which may relate to recent groin puncture. There is mild diffuse wall thickening in the urinary bladder. The prostate is moderately enlarged. There is no evidence of free intraperitoneal air. The kidneys are small and atrophic bilaterally. The patient has known renal insufficiency and is scheduled for dialysis later today. IMPRESSION: Mild mural thickening throughout the colon question enterocolitis. There is a plaque producing at least 50% narrowing of the proximal superior mesenteric artery. The patient is status post cholecystectomy. Renal atrophy and prostate enlargement are noted. Electronically Signed by Mani Medina MD 07/06/2018 04:01 P
[2018-07-06 12:06] LABS: INR 1.25; PROTHROMBIN TIME 15.9 SECONDS (12.1-14.4)
[2018-07-06 12:07] LABS: PARTIAL THROMBOPLASTIN TIME 31.3 SECONDS (25.4-37.6)
--- NOTE | 2018-07-06 12:09 | HPEPDOC ---
[facility] Medical History & Physical Date of Admission July 06, 2018 Date of Service: July 06, 2018 History and Physical Vascular surgery. Dr. Blank CC: Pt was scheduled in IR this AM for LLE angiogram as per Dr Blank. HPI: 68yoM with h/o PVD, angioplasty/stent left SFA, popliteal 04/[address] Blank. The pt has had persistent non healing wounds of LEs. The pt follows with Dr Blue for wound care with Arterial US requested 06/14/18 indicating stenosis LLE. The pt was scheduled for LLE angiogram this AM with Dr Blank. Angiogram of LLE was completed as per Dr Blank with arthrectomy LLE. Improved cap refill was subsequently noted in the Lt Gr Toe. After the procedure was completed pressure was applied to the groin. The pt was noted to have wretching, associated with transient hypotension (BP recorded 99/5 8), eyes rolled approximately 20 secs and the pt was noted to be unresponsive lasting about 30 secs. After the episode he had vomited and had some coughing with concern for possible aspiration. Currently the pt is resting comfortably in IR and responsive. VS stable with BP 171/76, HR 90, Sat 100% on NC. Denies any pain or discomfort. Denies any fevers, chills, weakness, fatigue, VILLEGAS, CP, SOB, cough, palpitations, abdominal pain, N/V/D or changes in bowel or bladder habits. PMHx: ESRD/ hemodialysis Monday as per nephrology Hypertension DM CAD/CABG Chronic systolic CHF. TTE 08/23 EF 40% History of CVA Peripheral vascular disease, angioplasty/stent left SFA, popliteal 04/24. PSHX: CABG Angioplasty/stent left lower extremity H/O pleaural effusion/pleurex catheter AVF creation SOCHX: Marital Status: Tobacco use: Denies ETOH: Denies Illicit Drugs: Denies ROS: As noted in HPI, otherwise 11pt ROS of systems reviewed and unremarkable. PE: GEN: 68yoM, appears stated age. No acute distress. Alert and oriented x 3. HEENT: Normocephalic, atraumatic. No nystagmus appreciated. Appears slightly icteric. Conjunctiva without injection. Moist mucous membranes. CHEST: Regular rate and rhythm, +S1, +S2 LUNGS: Decreased BS bilaterally, few scattered exp wheezes, few rales at bases, no rhonchi. ABD: Round, soft, non-tender, non-distended. +Bowel sounds throughout. No rebound or guarding. EXT: wounds noted to lateral aspect of LLE and B/L Great toes. Discolration is noted of the left great toes but improved cap refill post procedure. Pulses obtained with doppler. SKIN: no rashes. NEURO: Alert and oriented x 3. No focal deficits appreciated. Arterial US 06/14/18 Findings: Ankle brachial index on the right is low at 0.72. Noncompressible vessels were encountered on the left precluding MELISSA measurement. Moderate atherosclerotic plaquing is visible diffusely, left more extensively than right. Heavily calcified plaquing is seen in the distal calf and ankle vessels. The left femoral stent appears patent. Elevated velocities are encountered in the left posterior tibial artery which may be related to hyperemia as secondary to the wound. Poor flow is seen in the left anterior tibial artery. Distal posterior tibial artery flow was not observed on the right although this vessel is heavily calcified. Biphasic and monophasic waveforms are observed bilaterally. CTA Chest report pending. CT A/P report pending. CTH: 1. Old left basal ganglia lacunar infarction. 2. Small vessel ischemic disease. 3. Mild volume loss. Electronically Signed by Cyrus German MD 07/06/2018 11:24 A EKG: pending Adm labs pending. A&P: 68yoM with h/o PVD, angioplasty/stent left SFA, popliteal 04/[address] Blank. The pt has had persistent non healing wounds of LEs. The pt follows with Dr Blue for wound care with Arterial US requested 06/14/18 indicating stenosis LLE. The pt was scheduled for LLE angiogram this AM with Dr Blank. Angiogram of LLE was completed as per Dr Blank with arthrectomy LLE. Improved cap refill was subsequently noted in the Lt Gr Toe. After the procedure was completed pressure was applied to the groin. The pt was noted to have wretching, associated with transient hypotension (BP recorded 99/58), eyes rolled approximately 20 secs and the pt was noted to be unresponsive lasting about 30 secs. After the episode he had vomited and had some coughing with concern for possible aspiration. 1. PVD/S/P arthrectomy LLE. Continue Plavix/Statin. 2. ESRD. HD mgmt as per Nephrology. Nephrology consulted and will follow Pt, D/W Dr Banda. Plan for HD this evening. 3. Syncopal episode/Possible Vasovagal episode. Episode today associated with pressure applied to the groin and hypotension. Pt is noted to have had a similar episode 08/23. Episode of syncope with HD and associated hypotension. LOC approx 20 secs at that time. VSS currently. Plan to admit to PCU. TM. Serial CIP/Trop. CTA chest pending. CTH with no acute changes. CT A/P pending. No acute bleeding as per Dr Blank visualization. Request Hospitalist consult for any further recommendations as well as concern for possible aspiration. Spoke with Dr Canales, Dr Prescott will follow pt. 4. HTN 5. DM. NPO for now. 6. CAD/CABG. PCU/TM. EKG ordered. Serial CIP/Trop requested. 7. Systolic CHF. Fluid mgmt as per Nephrology. Plan for HD this evening. 8. H/O CVA. CTH with no acute changes. 9. Chronic LE wounds. Wound care ordered. Outpt FU with Dr Blue. MED REC PENDING AT THIS TIME. DVT prophylaxis. Vital Signs Currently an interventional radiology blood pressure 171/76. Respiratory rate 18. Heart rate 77. Laboratory Data Labs 24H Admission labs pending. Home Medications Scheduled Amlodipine Besylate (Amlodipine Besylate) 2.5 Mg Tablet, 2.5 MG PO QHS Calcitriol (Calcitriol) 0.25 Mcg Cap, 0.25 MCG PO 3XW RECEIVES AT DIALYSIS ON MON, MON, MON Calcium Carbonate (Tums Ultra) 1,000 Mg Chw, 1,000 MG PO WM Carvedilol (Carvedilol) 12.5 Mg Tablet, 12.5 MG PO BID Clopidogrel Bisulfate (Clopidogrel) 75 Mg Tab, 75 MG PO DAILY Ergocalciferol (Vitamin D2) (Vitamin D2) 50,000 Unit Cap, 50,000 UNIT PO 1XWK TAKES ON WEDNESDAYS Folic Acid/Vit B Complex and C (Radha-Haja Tablet) 1 Tab Tab, 1 TAB PO DAILY Gabapentin (Neurontin) 100 Mg Capsule, 100 MG PO BID Insulin Human NPH (Humulin N) 100 Unit/1 Ml Vial, 1 DOSE SC DAILY SLIDING SCALE; REPORTED USUALLY BETWEEN 2 AND 4 UNITS Pantoprazole Sodium (Protonix) 40 Mg Tab, 40 MG PO DAILY Rosuvastatin Calcium (Rosuvastatin Calcium) 10 Mg Tablet, 10 MG PO QHS Sevelamer Carbonate (Renvela) 800 Mg Tab, 1,600 MG PO WM Scheduled PRN Acetaminophen (Acetaminophen) 500 Mg Tablet, 1,000 MG PO QID PRN for PAIN Cetirizine HCl (Cetirizine HCl) 10 Mg Tablet, 10 MG PO DAILY PRN for ALLERGIES Hydrocodone/Acetaminophen (Hydrocodone-Acetamin 5-325 mg) 1 Each Tablet, 1 TAB PO Q6HP PRN for pain Allergies Coded Allergies: aspirin (Verified Allergy, Severe, CLOSES AIRWAY, 06/15/18) A-FIB/CHADSVASC A-FIB History Current/History of A-Fib/PAF?: No Mikala Saunders July 06, 2018 12:09
[2018-07-06 12:31] LABS: ALBUMIN 2.3 GM/DL (3.2-5.2); ALT/SGPT 10 U/L (12-78); BILIRUBIN,DIRECT 0.1 MG/DL (0.0-0.2); BILIRUBIN,TOTAL 0.5 MG/DL (0.2-1.0); BLOOD UREA NITROGEN 54 MG/DL (7-18); CALCIUM LEVEL 7.5 MG/DL (8.8-10.2); CARBON DIOXIDE LEVEL 25 MEQ/L (21-32); CHLORIDE LEVEL 99 MEQ/L (98-107); CK-MB VALUE MASS < 1.0 NG/ML (<3.6); CPK CREATINE PHOSPHOKINASE 28 U/L (39-308); CREATININE FOR GFR 6.73 MG/DL (0.70-1.30); GLOMERULAR FILTRATION RATE 8.7 (>49); GLUCOSE, FASTING 256 MG/DL (70-100); MB/CK RELATIVE INDEX 3.57 (< OR =4); POTASSIUM SERUM 3.8 MEQ/L (3.5-5.1); SODIUM LEVEL 135 MEQ/L (136-145); TOTAL PROTEIN 5.4 GM/DL (6.4-8.2); TROPONIN I 0.05 NG/ML (< 0.10)
[2018-07-06 14:15] VITALS: BP 168/75
--- NOTE | 2018-07-06 15:47 | CR.PDOC ---
General Date of Consultation: July 06, 2018 Referring Provider: Nicola Blank MD Consultation REASON FOR CONSULTATION/CHIEF COMPLAINT: Medical management ALLERGIES: Please see below. HOME MEDICATIONS: Please see below. PAST MEDICAL HISTORY: #ESRD/HD - MWF #HTN #DM #CAD/CABG #HFrEF - TTE 08/23 EF 40% #CVA #PVD s/p angioplasty/stent left SFA, popliteal 04/24. PAS SURGICAL HISTORY: #CABG #Angioplasty/stent left lower extremity #H/O pleural effusion/pleurex catheter #AVF creation REVIEW OF SYSTEMS: As per HPI PHYSICAL EXAMINATION: VITAL SIGNS: Please see below. GENERAL APPEARANCE: NAD, lying comfortably in bed in dialysis HEENT: NC/AT, EOMI, PERRL Heart: +S1S2, RRR, systolic murmur Lungs: CTA B/L ABDOMEN: soft, NT, +BS EXTREMITIES: trace edema, LUE fistula + bruit Psych: AAOx3 LABORATORY DATA: Please see below. A&P: 68 yo male s/p LLE angiogram/arthrectomy, POD #0, complicated with nausea, wretching, transient hypotension/unresponsiveness - 20-30secs, followed by vomiting. #hypotension/unresponsive/syncope - patient has no recollection of these events - had similar episode last year - possibly vasovagal - telemetry monitoring - imaging shows no acute pathology - old basilar lacunar infarct, possible enterocolitis #nausea/vomit - concern for aspiration # PVD/S/P arthrectomy LLE. - as per vascular - continue Plavix/Statin. # ESRD/HD - follow as per nephrology - seen in HD - was not able to undergo dialysis, appears to be related to mechanical malfunction #HTN - follow clinically - as per above, episode of hypotension #DM. #CAD/CABG. - PCU/telemetry - EKG ordered. - Serial CIP/Trop pending #Systolic CHF. - as per nephro for fluid management #H/O CVA. - CTH with no acute changes. #Chronic LE wounds. - follow with wound care - follow as o/p with Dr Blue. #DVT prophylaxis Dispo: contacted pharmacy for med/rec, nephrology f/u regarding HD Laboratory Data Labs 24H Laboratory Tests 2 07/06/18 11:42: Immature Granulocyte % (Auto) 3.0, White Blood Count 6.3, Red Blood Count 2.71L, Hemoglobin 8.9L, Hematocrit 27.8L, Mean Corpuscular Volume 102.6H, Mean Corpuscular Hemoglobin 32.8, Mean Corpuscular Hemoglobin Concent 32.0, Red Cell Distribution Width 15.2H, Platelet Count 177, Neutrophils (%) (Auto) 87.0H, Lymphocytes (%) (Auto) 8.2L, Monocytes (%) (Auto) 1.1, Eosinophils (%) (Auto) 0.5, Basophils (%) (Auto) 0.2, Neutrophils # (Auto) 5.5, Lymphocytes # (Auto) 0.5L, Monocytes # (Auto) 0.1, Eosinophils # (Auto) 0.0, Basophils # (Auto) 0.0, Nucleated Red Blood Cells % (auto) 0.3H, Prothrombin Time 15.9H, Prothromb Time International Ratio 1.25, Activated Partial Thromboplast Time 31.3, Anion Gap 11, Glomerular Filtration Rate 8.7L, Lactic Acid Level 2.0, Blood Urea Nitrogen 54H, Creatinine 6.73H, Sodium Level 135L, Potassium Level 3.8, Chloride Level 99, Carbon Dioxide Level 25, Calcium Level 7.5L, Aspartate Amino Transf (AST/SGOT) 12, Alanine Aminotransferase (ALT/SGPT) 10L, Total Creatine Kinase 28L, Alkaline Phosphatase 77, Total Bilirubin 0.5, Direct Bilirubin 0.1, Total Protein 5.4L, Albumin 2.3L, Creatine Kinase MB < 1.0, Creatine Kinase MB Relative Index 3.57, Troponin I 0.05, Albumin/Globulin Ratio 0.74L CBC/BMP Laboratory Tests 07/06/18 11:42 Red Blood Count 2.71 L, Mean Corpuscular Volume 102.6 H, Mean Corpuscular Hemoglobin 32.8, Mean Corpuscular Hemoglobin Concent 32.0, Red Cell Distribution Width 15.2 H, Neutrophils (%) (Auto) 87.0 H, Lymphocytes (%) (Auto) 8.2 L, Monocytes (%) (Auto) 1.1, Eosinophils (%) (Auto) 0.5, Basophils (%) (Auto) 0.2, Neutrophils # (Auto) 5.5, Lymphocytes # (Auto) 0.5 L, Monocytes # (Auto) 0.1, Eosinophils # (Auto) 0.0, Basophils # (Auto) 0.0, Calcium Level 7.5 L, Aspartate Amino Transf (AST/SGOT) 12, Alanine Aminotransferase (ALT/SGPT) 10 L, Total Creatine Kinase 28 L, Alkaline Phosphatase 77, Total Bilirubin 0.5, Direct Bilirubin 0.1, Total Protein 5.4 L, Albumin 2.3 L Allergies Coded Allergies: aspirin (Verified Allergy, Severe, CLOSES AIRWAY, 06/15/18) Home Medications Scheduled Amlodipine Besylate (Amlodipine Besylate) 2.5 Mg Tablet, 2.5 MG PO QHS, (Reported) Calcitriol (Calcitriol) 0.25 Mcg Cap, 0.25 MCG PO 3XW, (Reported) RECEIVES AT DIALYSIS ON MON, MON, MON Calcium Carbonate (Tums Ultra) 1,000 Mg Chw, 1,000 MG PO WM, (Reported) Carvedilol (Carvedilol) 12.5 Mg Tablet, 12.5 MG PO BID, (Reported) Cetirizine HCl (Cetirizine HCl) 10 Mg Tablet, 10 MG PO DAILY, (Reported) Clopidogrel Bisulfate (Clopidogrel) 75 Mg Tab, 75 MG PO DAILY, (Reported) Ergocalciferol (Vitamin D2) (Vitamin D2) 50,000 Unit Cap, 50,000 UNIT PO 1XWK, (Reported) TAKES ON WEDNESDAYS Folic Acid/Vit B Complex and C (Radha-Haja Tablet) 1 Tab Tab, 1 TAB PO DAILY, (Reported) Gabapentin (Neurontin) 100 Mg Capsule, 100 MG PO BID, (Reported) Insulin Human NPH (Humulin N) 100 Unit/1 Ml Vial, 1 DOSE SC DAILY, (Reported) SLIDING SCALE; REPORTED USUALLY BETWEEN 2 AND 4 UNITS Pantoprazole Sodium (Protonix) 40 Mg Tab, 40 MG PO DAILY, (Reported) Rosuvastatin Calcium (Rosuvastatin Calcium) 10 Mg Tablet, 10 MG PO QHS, (Reported) Sevelamer Carbonate (Renvela) 800 Mg Tab, 1,600 MG PO WM, (Reported) Scheduled PRN Acetaminophen (Acetaminophen) 500 Mg Tablet, 1,000 MG PO QID PRN for PAIN, (Reported) HELEN OCHOA MD July 06, 2018 12:43
--- NOTE | 2018-07-06 16:34 | ECGEPIP ---
[facility] Test Date: 2018-07-06 Pat Name: RENATA SALES Department: Room: - Gender: Male Flight Physician: : [id number] Requested By: Nicola Gutierrez Order Number: [id number] Reading MD: Basil Muir Measurements Intervals [place] Rate: 93 P: 66 FL: 183 QRS: 69 QRSD: 87 T: 89 QT: 354 QTc: 441 Interpretive Statements SINUS RHYTHM ST DEVIATION AND MODERATE T-WAVE ABNORMALITY, CONSIDER ANTEROLATERAL ISCHEMIA Repolarization abnormalities more prominent compared with 04/18/2018 Electronically Signed on 07-06-2018 16:33:44 EDT by Basil Muir
[2018-07-06 16:45] VITALS: BP 145/67
[2018-07-06] MEDS ORDERED: GLUCOSE 4 GM CHEW TABLET PO PRN (17:00)
[2018-07-06] MEDS ORDERED: DEXTROSE 50% 50 ML SYRINGE IV PRN (17:00)
[2018-07-06] MEDS ORDERED: GLUCAGON FOR INJ 1 MG VIAL (J1610) SC PRN (17:00)
[2018-07-06] MEDS ORDERED: ACETAMINOPHEN 500 MG TAB PO PRN (17:00)
[2018-07-06] MEDS: (RENVELA) SEVELAMER **CARBONate** 800 MG TAB PO SCH (17:24)
[2018-07-06] MEDS: CALCIUM CARBONATE 500 MG CHEW U/D PO SCH (17:25)
[2018-07-06] MEDS: HumaLOG INSULIN (NovoLOG) PER UNIT SC SCH ×2 (17:25→20:20)
[2018-07-06 20:21] LABS: MB/CK RELATIVE INDEX 3.33 (< OR =4); TROPONIN I 0.03 NG/ML (< 0.10)
[2018-07-06] MEDS: ROSUVASTATIN 10 MG TAB (CRESTOR) PO SCH (20:31)
[2018-07-06] MEDS: CARVedilol 12.5 MG TAB PO SCH (20:32)
[2018-07-06] MEDS: GABAPENTIN 100 MG CAP PO SCH (20:32)
[2018-07-06 22:00] VITALS: BP 130/60
[2018-07-07 05:11] LABS: HEMATOCRIT 23.8 % (42.0-52.0); HEMOGLOBIN 7.4 g/dl (13.5-17.5); MEAN CORPUSCULAR HEMOGLOBIN 32.3 pg (27.0-33.0); MEAN CORPUSCULAR HGB CONC 31.1 g/dl (32.0-36.5); MEAN CORPUSCULAR VOLUME 103.9 fl (80.0-96.0); PLATELET COUNT, AUTOMATED 149 10^3/uL (150-450); RED BLOOD COUNT 2.29 10^6/uL (4.30-6.10); WHITE BLOOD COUNT 6.3 10^3/uL (4.0-10.0)
[2018-07-07 05:33] LABS: ALBUMIN 2.4 GM/DL (3.2-5.2); BILIRUBIN,TOTAL 0.3 MG/DL (0.2-1.0); CALCIUM LEVEL 7.9 MG/DL (8.8-10.2); CREATININE FOR GFR 7.27 MG/DL (0.70-1.30); MB/CK RELATIVE INDEX 2.97 (< OR =4); TOTAL PROTEIN 6.4 GM/DL (6.4-8.2); TROPONIN I 0.03 NG/ML (< 0.10)
[2018-07-07 06:00] VITALS: BP 140/72
[2018-07-07] MEDS: GABAPENTIN 100 MG CAP PO SCH ×2 (06:07→21:03)
[2018-07-07] MEDS: CARVedilol 12.5 MG TAB PO SCH ×2 (06:07→21:04)
--- NOTE | 2018-07-07 07:29 | CR ---
DATE OF CONSULTATION: 07/06/2018 REQUESTING PHYSICIAN: Dr. Nicola Blank. CONSULTING PHYSICIAN: Dr. Banda. REASON FOR CONSULTATION: Management of end-stage renal disease on hemodialysis. CHIEF COMPLAINT: The patient came as outpatient to the interventional radiology for left lower extremity angiogram. HISTORY OF PRESENT ILLNESS: Mr. Ayaan Dykes is a 68-year-old male with past medical history of end-stage renal disease on hemodialysis every Monday, Monday, Monday, history of hypertension, diabetes mellitus type 2, coronary artery disease, congestive heart failure, multiple other comorbidities, well-known to nephrology service from outpatient hemodialysis and from previous multiple hospitalizations. He has peripheral vascular disease with history of left fifth toe amputation because of ischemia. He came to vascular surgery as outpatient for left leg angiogram. He got the angioplasty and stenting of the left superficial femoral artery and popliteal artery in April by Dr. Blank. He had persistent nonhealing wounds so he was called back again today morning for left leg angiogram. He got the thrombectomy of the left leg. However, after the procedure, patient had episode of hypotension with systolic blood pressures in the 90s and this was associated with the patient's rolling of the eyes upward, failing of the upper extremities and period of unconsciousness and one episode of vomiting. The patient was given 2 liters of normal saline. Wide bore IV lines were inserted and decision was made to admit the patient to the hospital. Nephrology service was called for further help in the management of this patient with end-stage renal disease and arrangement of hemodialysis. I saw and evaluated the patient in interventional radiology today in the afternoon. He was still groggy after the procedure. However, he was able to communicate and follow commands. His was also present at the bedside. Today is patient's regular day of dialysis. PAST MEDICAL HISTORY: Past medical history of end-stage renal disease on hemodialysis every Monday, Monday, Monday. Hypertension with hypertensive heart disease and end-stage renal disease. Diabetes mellitus type 2. Coronary artery disease status post cabbage. Chronic systolic congestive heart failure with ejection fraction of 40% and history of recurrent pleural effusion requiring PleurX catheter and frequent drainage in the recent past. History of cerebrovascular accident (CVA) with expressive aphasia. Peripheral vascular disease requiring angioplasty and stenting of the left leg vessels. PAST SURGICAL HISTORY: Status post coronary artery bypass grafting. Status post angioplasty and stenting of the left lower extremity. Status post thrombectomy in left leg arteries today in the morning. History of PleurX catheter placement. Status post AV fistula placement. ALLERGIES: The patient is allergic to ASPIRIN. FAMILY HISTORY: No significant family history of end-stage renal disease requiring hemodialysis. SOCIAL HISTORY: The patient lives with his . He denies any illicit drug abuse, smoking or alcohol abuse. REVIEW OF SYSTEMS: Constitutional: Patient reports feeling weak. Eyes: Denies any blurry vision, double vision. ENT: Denies any dysphagia or odynophagia. Cardiovascular: He denies any chest pain or palpitation. Respiratory: Denies any shortness of breath or cough. GI: Denies any nausea, vomiting. Genitourinary: He denies any dysuria or hematuria. Musculoskeletal: He does report nonhealing ulcers of both feet. TELEPHONE MECHANIC: He reports history of stroke. Psych: He denies any depression or anxiety at this time. Hematological/oncological: He denies any easy bleeding or bruising. All other review of systems is negative. PHYSICAL EXAMINATION: General: The patient is drowsy and sleepy but otherwise he is oriented times three. Vital signs: Temperature is 98.4 degrees Fahrenheit. Blood pressure 168/70. Pulse 86, respiratory rate of 14, saturating 98% on 2 liters on nasal cannula. Head and neck exam: Extraocular muscles intact. Pupils equally round and reactive to light. Mucous membranes are moist. Neck is supple. There is no jugular venous distention (JVD). Cardiovascular: S1, S2. No edema of the bilateral lower extremities. Respiratory: Chest is clear to auscultation bilaterally. Bilateral equal air entry. No rales or rhonchi. Abdomen: Soft. Positive bowel sounds. Nontender. No organomegaly. Musculoskeletal: The patient has ulcers on both big toes and both lower extremities and he is status post left fifth toe amputation. I could not appreciate the pulses. TELEPHONE MECHANIC: The patient has expressive aphasia, otherwise he follows commands and moves the upper extremities. LAB REVIEW: CBC showed a WBC 6.3, hemoglobin 8.9, platelets of 177. INR is 1.25. BMP showed sodium 135, potassium 3.8, chloride 99, bicarb 25, BUN 54, creatinine 6.7, lactic acid is 2, troponin is 0.05, albumin is 2.3. IMAGING STUDIES: CT scan of the abdomen and pelvis was done with contrast which showed mural thickening of the colon, 50% narrowing of the proximal superior mesenteric artery. CT angiogram of the chest was done which showed small bilateral pleural effusions. No evidence of pulmonary embolism. CT scan of the head was done which showed old left basal ganglia lacunar infarct. Small vessel ischemic changes. CURRENT INPATIENT MEDICATIONS. The patient's medications include: - Tylenol as needed - amlodipine 2 mg by mouth daily - Tums 1 gram by mouth with meals - Coreg 12.5 mg by mouth twice a day - Zyrtec 10 mg daily - Plavix 75 mg daily - gabapentin 100 mg by mouth twice a day - insulin Lispro sliding scale - Protonix 40 mg daily - rosuvastatin 10 mg daily at bedtime - Renvela 1600 mg by mouth with meals ASSESSMENT: 68-year-old male with past medical history of end-stage renal disease on hemodialysis, hypertension, coronary artery disease, congestive heart failure, peripheral vascular disease admitted this time after hypotensive episode and seizure-like activity after the left leg angiogram and thrombectomy. PLAN: 1. End-stage renal disease on hemodialysis. The patient's regular dialysis days are Monday, Monday, Monday. He will be dialyzed today according to his regular schedule. I will try to remove about 2 kg of fluid as tolerated by his blood pressure. 2. Hypertension with hypertensive heart disease and end-stage renal disease. Continue current dose of amlodipine 2.5 mg by mouth daily, Coreg 12.5 mg by mouth twice a day. 3. Chronic kidney disease, mineral bone disease. Continue current dose of Tums 1 gram by mouth with meals and Renvela 1.6 grams by mouth with meals. 4. Coronary artery disease status post coronary artery bypass graft (CABG), continue current dose of Plavix 75 mg by mouth daily. Continue rosuvastatin 10 mg by mouth daily at bedtime. 5. Chronic systolic congestive heart failure. The patient got 2 liters of fluid. I will try to remove fluid during dialysis today. He does have mild amount of pleural effusions. If needed, he will get an extra session of hemodialysis tomorrow morning as well. 6. Episode of unresponsiveness and hypotension postprocedure, most likely this was vasovagal. Blood pressures are okay now. The patient is getting telemonitoring. CT scan of the abdomen and pelvis was negative for any retroperitoneal bleed. Thank you for involving me in the care of this patient. I shall be happy to follow the patient along with you tomorrow morning. Plan of care was discussed with the vascular surgery team.
[2018-07-07] MEDS: CLOPIDOGREL 75 MG TAB PO SCH (08:09)
[2018-07-07] MEDS: PANTOPRAZOLE 40MG TAB (PROTONIX) PO SCH (08:09)
[2018-07-07] MEDS: CETIRIZINE (ZyrTEC) 10 MG TAB PO SCH (08:09)
[2018-07-07] MEDS: CALCIUM CARBONATE 500 MG CHEW U/D PO SCH ×3 (08:10→17:59)
[2018-07-07] MEDS: (RENVELA) SEVELAMER **CARBONate** 800 MG TAB PO SCH ×3 (08:10→18:00)
[2018-07-07] MEDS: HumaLOG INSULIN (NovoLOG) PER UNIT SC SCH ×4 (08:12→21:00)
[2018-07-07 09:00] VITALS: BP 140/50
--- NOTE | 2018-07-07 10:48 | IPNPDOC ---
Text Note Date of Service The patient was seen on 07/07/18. NOTE Subjective: Patient seen and examined today, again in dialysis. Patient states he is feeling much better today. No medical complaints. at bedside confirms that she feels he is essentially back to his baseline mentation. Objective: VITAL SIGNS: Please see below. GENERAL APPEARANCE: NAD, lying comfortably in bed in dialysis HEENT: NC/AT, EOMI, PERRL Heart: +S1S2, RRR, systolic murmur Lungs: CTA B/L ABDOMEN: soft, NT, +BS EXTREMITIES: trace edema Psych: AAOx3 LABORATORY DATA: Please see below. A&P: 68 yo male s/p LLE angiogram/arthrectomy, POD #1, complicated with nausea, wretching, transient hypotension/unresponsiveness - 20-30secs, followed by vomiting. #hypotension/unresponsive/syncope - appears to have resolved - possibly vasovagal - patient has no recollection of these events - had similar episode last year - telemetry monitoring - imaging shows no acute pathology - old basilar lacunar infarct, possible enterocolitis #anemia - receiving 2 units PRBC today - repeat H/H - consider CT A/P for eval of bleed if worsening anemia #nausea/vomit - resolved # PVD/S/P arthrectomy LLE. - as per vascular - continue Plavix/Statin. # ESRD/HD - follow as per nephrology - seen in HD - was not able to undergo dialysis, appears to be related to mechanical malfunction #HTN - follow clinically - as per above, episode of hypotension #DM. #CAD/CABG. - PCU/telemetry - EKG ordered. - Serial CIP/Trop pending #Systolic CHF. - as per nephro for fluid management #H/O CVA. - CTH with no acute changes. #Chronic LE wounds. - follow with wound care - follow as o/p with Dr Blue. #DVT prophylaxis Dispo: follow H/H, follow as per vascular/nephro VS,Fishbone, I+O VS, Fishbone, I+O Laboratory Tests 07/06/18 11:42 Red Blood Count 2.71 L, Mean Corpuscular Volume 102.6 H, Mean Corpuscular Hemoglobin 32.8, Mean Corpuscular Hemoglobin Concent 32.0, Red Cell Distribution Width 15.2 H, Neutrophils (%) (Auto) 87.0 H, Lymphocytes (%) (Auto) 8.2 L, Monocytes (%) (Auto) 1.1, Eosinophils (%) (Auto) 0.5, Basophils (%) (Auto) 0.2, Neutrophils # (Auto) 5.5, Lymphocytes # (Auto) 0.5 L, Monocytes # (Auto) 0.1, Eosinophils # (Auto) 0.0, Basophils # (Auto) 0.0, Calcium Level 7.5 L, Aspartate Amino Transf (AST/SGOT) 12, Alanine Aminotransferase (ALT/SGPT) 10 L, Total Creatine Kinase 28 L, Alkaline Phosphatase 77, Total Bilirubin 0.5, Direct Bilirubin 0.1, Total Protein 5.4 L, Albumin 2.3 L 07/07/18 04:45 Red Blood Count 2.29 L, Mean Corpuscular Volume 103.9 H, Mean Corpuscular He moglobin 32.3, Mean Corpuscular Hemoglobin Concent 31.1 L, Red Cell Distribution Width 15.5 H, Calcium Level 7.9 L, Aspartate Amino Transf (AST/SGOT) 12, Alanine Aminotransferase (ALT/SGPT) 13, Total Creatine Kinase 37 L, Alkaline Phosphatase 73, Total Bilirubin 0.3, Total Protein 6.4, Albumin 2.4 L Vital Signs Date Time Temp Pulse Resp B/P (MAP) Pulse Ox O2 Delivery O2 Flow Rate FiO2 07/07/18 09:00 80 140/50 (80) 07/07/18 06:00 97.9 17 93 07/06/18 22:00 2.0 I&O- Last 24 Hours up to 6 AM 07/07/18 06:00 Intake Total 600 ml Output Total 0 ml Balance 600 ml HELEN OCHOA MD Jul 07, 2018 10:48
[2018-07-07 13:28] VITALS: BP 140/68
[2018-07-07 15:52] LABS: HEMATOCRIT 29.3 % (42.0-52.0); HEMOGLOBIN 9.5 g/dl (13.5-17.5)
[2018-07-07] MEDS: ROSUVASTATIN 10 MG TAB (CRESTOR) PO SCH (21:03)
[2018-07-07 22:00] VITALS: BP 146/74
[2018-07-08 05:38] LABS: HEMATOCRIT 28.2 % (42.0-52.0); HEMOGLOBIN 9.1 g/dl (13.5-17.5); MEAN CORPUSCULAR HEMOGLOBIN 32.3 pg (27.0-33.0); MEAN CORPUSCULAR HGB CONC 32.3 g/dl (32.0-36.5); PLATELET COUNT, AUTOMATED 131 10^3/uL (150-450); RED BLOOD COUNT 2.82 10^6/uL (4.30-6.10); WHITE BLOOD COUNT 6.1 10^3/uL (4.0-10.0)
[2018-07-08 06:00] VITALS: BP 142/74
[2018-07-08 06:06] LABS: ALBUMIN 2.7 GM/DL (3.2-5.2); BILIRUBIN,TOTAL 0.3 MG/DL (0.2-1.0); CALCIUM LEVEL 8.6 MG/DL (8.8-10.2); GLOMERULAR FILTRATION RATE 12.3 (>49)
[2018-07-08] MEDS: GABAPENTIN 100 MG CAP PO SCH (07:43)
[2018-07-08] MEDS: (RENVELA) SEVELAMER **CARBONate** 800 MG TAB PO SCH (07:43)
[2018-07-08] MEDS: CETIRIZINE (ZyrTEC) 10 MG TAB PO SCH (07:43)
[2018-07-08] MEDS: PANTOPRAZOLE 40MG TAB (PROTONIX) PO SCH (07:43)
[2018-07-08] MEDS: CLOPIDOGREL 75 MG TAB PO SCH (07:43)
[2018-07-08] MEDS: HumaLOG INSULIN (NovoLOG) PER UNIT SC SCH (07:44)
[2018-07-08] MEDS: CALCIUM CARBONATE 500 MG CHEW U/D PO SCH (07:44)
[2018-07-08 07:46] VITALS: BP 164/80
[2018-07-08] MEDS: CARVedilol 12.5 MG TAB PO SCH (07:46)
--- NOTE | 2018-07-08 10:23 | IPNPDOC ---
Text Note Date of Service The patient was seen on 07/08/18. NOTE Subjective: Patient seen and examined today at bedside. No acute overnight events reported. No medical complaints. States he feels well and is looking forward to eating clams. Objective: VITAL SIGNS: Please see below. GENERAL APPEARANCE: NAD, lying comfortably in bed HEENT: NC/AT, EOMI, PERRL Heart: +S1S2, RRR, systolic murmur Lungs: CTA B/L ABDOMEN: soft, NT, +BS EXTREMITIES: trace edema Psych: AAOx3 LABORATORY DATA: Please see below. A&P: 68 yo male s/p LLE angiogram/arthrectomy, POD #2, complicated with nausea, wretching, transient hypotension/unresponsiveness - 20-30secs, followed by vomiting. 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 - as per vascular - continue Plavix/Statin. # ESRD/HD - follow as per nephrology - seen in HD - was not able to undergo dialysis, appears to be related to mechanical malfunction #HTN - follow clinically - as per above, episode of hypotension #DM. #CAD/CABG. - stable #Systolic CHF. - as per nephro for fluid management #H/O CVA. - CTH with no acute changes. #Chronic LE wounds. - follow with wound care - follow as o/p with Dr Blue. #DVT prophylaxis Dispo: follow up as per nephro/vascular VS,Fishbone, I+O VS, Fishbone, I+O Laboratory Tests 07/07/18 15:47 07/08/18 05:10 Red Blood Count 2.82 L, Mean Corpuscular Volume 100.0 H, Mean Corpuscular Hem oglobin 32.3, Mean Corpuscular Hemoglobin Concent 32.3, Red Cell Distribution Width 17.1 H, Calcium Level 8.6 L, Aspartate Amino Transf (AST/SGOT) 18, Alanine Aminotransferase (ALT/SGPT) 13, Alkaline Phosphatase 85, Total Bilirubin 0.3, Total Protein 7.0, Albumin 2.7 L Vital Signs Date Time Temp Pulse Resp B/P (MAP) Pulse Ox O2 Delivery O2 Flow Rate FiO2 07/08/18 07:46 94 164/80 07/08/18 06:00 98.4 17 96 07/06/18 22:00 2.0 I&O- Last 24 Hours up to 6 AM 07/08/18 06:00 Intake Total 2040 ml Output Total 2500 ml Balance -460 ml HELEN OCHOA MD Jul 08, 2018 10:23
--- NOTE | 2018-07-08 12:03 | IPN ---
DATE: 07/07/2018 SUBJECTIVE: The patient was seen and examined at the bedside today morning during hemodialysis procedure. We tried to do hemodialysis procedure yesterday. However, there were some issues with the access flow, and he could not finish his dialysis. There is a drop in hemoglobin today; it has dropped to 7.4 today. The patient denies any pain at the right groin procedure site. He is otherwise afebrile and hemodynamically stable. OBJECTIVE: Vital signs: Temperature is 97.9 degrees Fahrenheit, blood pressure 140/70, pulse is 79, respiratory rate of 17, saturating 93% on room air. Intake and output. There is no urine output recorded. Weight on the bed scale is 86 kg. PHYSICAL EXAMINATION: General: The patient is awake, alert, oriented times three, laying in bed, getting hemodialysis done, no apparent distress. Head and Neck Exam: Extraocular muscles intact. Pupils equally round and reactive to light. Mucous membranes are moist. Neck is supple. There is no jugular venous distention (JVD). Cardiovascular: S1, S2, regular rate. No edema of the bilateral lower extremities. Respiratory: Chest is clear to auscultation bilaterally. Bilateral equal air entry. No rales or rhonchi. Abdomen: Soft, obese, positive bowel sounds. Nontender. No organomegaly. Musculoskeletal: The patient has a dressing in the right groin. There is no hematoma around the dressing site. Pulses in the bilateral lower extremities are diminished. He has bilateral big toe ulcers and the left 5th toe is amputated. Central Nervous System (GEOLOGICAL ENGINEER): The patient has expressive aphasia, otherwise he follows commands and moves all extremities. LABORATORY REVIEW: CBC showed a WBC of 6.3, hemoglobin is 7.4, platelets of 149. BMP showed sodium 134, potassium 4, chloride 99, bicarbonate 27, BUN 56, creatinine is 7.2. CURRENT INPATIENT MEDICATIONS: The patient's medications were all reviewed by me. He has been started on Plavix 75 mg by mouth daily, Protonix 40 mg by mouth daily. No other change in the medications today as compared with yesterday. ASSESSMENT/PLAN: 1. End-stage renal disease - on hemodialysis. The patient's regular dialysis days are Monday, Monday, Monday. He could not be dialyzed yesterday because of issues with the access. He is being dialyzed today. I will try to remove at least 2.5 liters of fluid as tolerated by his blood pressure. 2. Hypertension with hypertensive heart disease. Continue current dose of amlodipine and carvedilol. Blood pressure is optimal. 3. Anemia in end-stage renal disease and recent procedure. The patient is being given two units of packed red blood cell transfusion. I would check another CBC in the afternoon, and if the hemoglobin drops again, then patient will need a CT scan of the abdomen and pelvis with IV contrast. 4. Chronic systolic congestive heart failure. Volume status is optimized with dialysis, 2.5 liters of fluid is being removed with dialysis today.
--- NOTE | 2018-07-09 09:08 | IPN ---
DATE: 07/08/2018 SUBJECTIVE: Ayaan is seen and examined this morning at the bedside. He denies any overnight events or complaints. He was dialyzed yesterday without any issues. He had 2.5 liters of fluid removed. His fistula has been in good use. He received 2 units of packed red blood cells yesterday with appropriate improvement in his hemoglobin. Vital signs: Temperature 98.4, pulse 86, respiratory rate 17, blood pressure 142/74, saturating 96% on room air. Intake yesterday was 1640. Dialysis yesterday removed 2.5 liters. Weight in the bed scale today is 84.8 kg. General: The patient is seen at the bedside lying down, awake, alert, oriented times three, in no distress. Chronic speech impediment. Extraocular muscles are intact. Pupils round and reactive to light. Tongue is moist. Neck is supple. Jugular veins are not distended. Cardiac: S1, S2, regular rate. No edema in the lower extremities. Lungs are clear to auscultation bilaterally. There is no rale or rhonchi. Abdomen is soft and nontender. There are bowel sounds. The left upper extremity fistula is patent with thrill and bruit. His groin was not examined today. Neurologic: The patient has chronic speech impediment. Otherwise, he is at his baseline mentation, cooperative and interactive. LABS: White count 6.1, hemoglobin 9.1, platelet 131. Sodium 141, potassium 4.0, bicarbonate 30. IMAGING: CT abdomen and pelvis with contrast on 07/06/2018 reviewed. INPATIENT MEDICATIONS: Show no change from prior. The patient continues on amlodipine and Carvedilol. PROBLEMS: 1. End-stage renal disease on hemodialysis on a Monday, Monday, Monday schedule. The patient was dialyzed yesterday off schedule due to fistula issues on Monday. He had tolerated Monday's treatment without any issue and without any problems from the fistula. His volume status and electrolytes are acceptable, and no change is being made to his chronic prescription. His next dialysis treatment will be on Monday. 2. Hypertension. Blood pressures are acceptable. Had a prior episode of hypotension that was transient and associated with a vascular procedure. He got presently continues on his usual amlodipine and Carvedilol 3. Systolic congestive heart failure. He is clinically compensated on exam and is tolerating fluid removal with dialysis without issues. 4. Acute on chronic anemia. The patient is status post 2 units of packed red blood cells yesterday and his hemoglobin has improved. 5. Peripheral vascular disease status post arthrectomy and angiogram, followed by vascular surgery and he continues on pravastatin and Plavix.
--- NOTE | 2018-07-13 18:12 | DSES ---
DATE OF ADMISSION: 07/06/2018 DATE OF DISCHARGE: 07/08/2018 ADMISSION DIAGNOSES: 1. Hypotension. 2. Left lower extremity nonhealing wounds with severe atherosclerotic arterial occlusive disease. 3. Diabetes mellitus. 4. End-stage renal disease. DISCHARGE DIAGNOSIS: 1. Hypotension. 2. Left lower extremity nonhealing wounds with severe atherosclerotic arterial occlusive disease. 3. Diabetes mellitus. 4. End-stage renal disease. HOSPITAL COURSE: The patient presented as an outpatient for angiography of his left lower extremity and postprocedure developed some hypotension and was admitted to the hospital. The patient underwent a CT of the head, abdomen and pelvis which showed no abnormality. The patient underwent dialysis and was subsequently discharged home on 07/08/2018. The patient has instructions to followup with Dr. Blue at the wound center and as an outpatient with myself in 7-10 days.
--- NOTE | 2018-07-14 14:51 | REPIR ---
DATE OF PROCEDURE: 07/06/2018 SURGEON: Dr. Emely Blank. RETURNED MATERIALS INSPECTOR: Marcia Bejarano and Savanah Herrera PREOPERATIVE DIAGNOSES: End-stage renal disease, diabetes mellitus, nonhealing left foot ulcer. POSTOPERATIVE DIAGNOSES: End-stage renal disease, diabetes mellitus, nonhealing left foot ulcer. PROCEDURE: Selective left common femoral artery catheter placement, left lower extremity angiogram, left posterior tibial atherectomy with a jet stream 1.85, left peroneal artery angioplasty jet stream atherectomy with a 1.85, left popliteal artery atherectomy with a jet stream 1.85, right common femoral arterial MYNX closure device. ANESTHESIA: Local with 10 mL of 2% lidocaine mixed with 0,5% Marcaine, Benadryl 50 mg. HEPARIN: 7000, protamine 25 mg FLUORO TIME: 12.6 minutes. CONTRAST: 9 mL of Isovue-300. COMPLICATIONS: None. DRAINS: None. SPECIMENS: None. INDICATION: The patient is a 68-year-old male with end-stage renal disease and diabetes mellitus with a nonhealing ulcer in his left foot. The patient will undergo an angiogram with possible angioplasty stent and/or atherectomy. DESCRIPTION OF PROCEDURE: The patient was taken to the angiography suite, placed supine on the angiography room table and the right common femoral artery was cannulated. Catheter was advanced up and over the bifurcation and angiogram performed showing severe disease in the distal popliteal and the proximal peroneal and posterior tibial artery. These vessels underwent atherectomy with the jet stream 1.85 and then post dilatation with a 4 x 220 mm balloon. A completion angiogram showed widely patent popliteal peroneal and posterior tibial arteries into the foot. Catheters and wires were removed. A MYNX closure was used to close the arteriotomy in the right common femoral artery with an additional 10 minutes of adjunctive pressure applied for hemostasis. Dressings were then applied. The patient tolerated the procedure well. All instrument, sponge and needle counts were correct at the end of the case. There were no complications. Dr. Blank was present for directed the entire case. [facility] and subsequently [facility] due to hypotension. [facility]
== END 2018-07-08 13:00 | disposition home or self-care (01) ==
LOC: M IRPRO 06:41 → M MSPAV 11:29 → M IRPRO 14:13 → M MSPAV 07-08 12:42 → M IRPRO 07-08 12:42 → M MSPAV 07-08 12:44 → INTOOBSV 07-08 12:44 → UNDOADMOB 07-08 12:44 → UNDODISOB 07-08 13:00
PROVIDERS: ADMIT Surgery Vascular Surgery; ATTEND Surgery Vascular Surgery
DX: I70.242 Atherosclerosis of native arteries of left leg with ulceration of calf (principal); I70.245 Atherosclerosis of native arteries of left leg with ulceration of other part of foot; I70.235 Atherosclerosis of native arteries of right leg with ulceration of other part of foot; R55 Syncope and collapse; N18.6 End stage renal disease; I50.22 Chronic systolic (congestive) heart failure; I13.2 Hypertensive heart and chronic kidney disease with heart failure and with stage 5 chronic kidney disease, or end stage renal disease; E11.51 Type 2 diabetes mellitus with diabetic peripheral angiopathy without gangrene; I25.10 Atherosclerotic heart disease of native coronary artery without angina pectoris; E11.22 Type 2 diabetes mellitus with diabetic chronic kidney disease; E11.621 Type 2 diabetes mellitus with foot ulcer; I95.9 Hypotension, unspecified; Z95.1 Presence of aortocoronary bypass graft; Z79.899 Other long term (current) drug therapy; Z79.4 Long term (current) use of insulin; Z88.6 Allergy status to analgesic agent; Z86.73 Personal history of transient ischemic attack (TIA), and cerebral infarction without residual deficits
CPT/HCPCS: 36415; 37225; 37229; 37233; 70450; 71275; 74177; 80053; 82248; 82550; 82553; 83605; 84484; 85014; 85018; 85025; 85027; 85610; 85730; 86850; 86900; 86901; 86920; 93005; C1724; C1725; C1760; C1769; C1887; C1894; G0257; G0378; J1200; J2250; J2405; J2720; J3010; P9016; Q9967

== ENCOUNTER → 2018-07-25 | Outpatient (CLI) | payer MEDICARE, OTHER ==
[~2018-07-25] MED LIST changes: +ADVAIR INH; +AZIT-12 PO; +BENZ-18 PO; +BUPIVACAINE HCL 0.5% 10 ML VIAL As Ordered ONE; +CEFD300CAP PO; +GUAISYP5 PO; +HEPARIN 1,000 UNITS/ML 10ML VIAL (FOR RADIOLOGY& DIALYSIS ONLY) As Ordered ONE; +ISOVUE-300 61% 50ML VIAL (Q9967) As Ordered ONE; +KEPP250T5 PO; +LEVO250T12 PO; +LIDOCAINE 2% MDV 20 ML VIAL As Ordered ONE; +MIDAZOLAM INJ 2 MG/2 ML VIAL (J2250) As Ordered ONE; +PROTAMINE SULF INJ 50 MG/5 ML VIAL (J2720) As Ordered ONE; -ROSU10TA5 PO; +ROSU10TA6 PO; +diphenhydrAMINE INJ 50MG/ML VIAL (J1200) As Ordered ONE; +fentaNYL 100 MCG/2 ML INJECTION (J3010) As Ordered ONE
--- NOTE | 2018-08-15 08:21 | REPIR ---
DATE OF PROCEDURE: 07/25/2018 ATTENDING SURGEON: Dr. Emely Blank HOME HEALTH CARE PROVIDER: Madison Gonzalez PREOPERATIVE DIAGNOSIS: Nonhealing right foot ulcers, right foot pain. POSTOPERATIVE DIAGNOSIS: Nonhealing right foot ulcers, right foot pain. PROCEDURE: Right lower extremity angiogram. INDICATION: The patient is a 68-year-old male with diabetes mellitus, end-stage renal disease and nonhealing right foot ulcers. The patient will undergo an angiogram with possible angioplasty, stent and/or atherectomy. ANESTHESIA: Was local with 10 mL of 2% lidocaine mixed with 0.5% Marcaine. FLUORO TIME: 0.5 minutes. CONTRAST: 3 mL of Isovue-300. HEPARIN: None. COMPLICATIONS: None. DRAINS: None. SPECIMENS: None. PROCEDURE: The patient was taken the angiography suite, placed supine on the angiography room table and prepped and draped in sterile surgical fashion. Left common femoral artery was cannulated. A right lower extremity angiogram was performed showing severe tibial peroneal atherosclerotic arterial occlusive disease. The catheter was removed and a Mynx closure device was used to close the arteriotomy in the left common femoral artery with an additional 10 minutes of adjunctive pressure applied for hemostasis. Dressings were then applied. The patient tolerated procedure well. All instruments, sponges, and needle counts were correct at the end of the case. There were no complications. Dr. Blank was present for and directed the entire case. The patient was transferred to the holding area and subsequently discharged in stable condition.
== END ==
LOC: M IRPRO 06:43
PROVIDERS: ATTEND Surgery Vascular Surgery
DX: I70.235 Atherosclerosis of native arteries of right leg with ulceration of other part of foot (principal); E11.621 Type 2 diabetes mellitus with foot ulcer; E11.22 Type 2 diabetes mellitus with diabetic chronic kidney disease; E11.40 Type 2 diabetes mellitus with diabetic neuropathy, unspecified; I25.10 Atherosclerotic heart disease of native coronary artery without angina pectoris; I50.9 Heart failure, unspecified; N40.0 Benign prostatic hyperplasia without lower urinary tract symptoms; Z86.73 Personal history of transient ischemic attack (TIA), and cerebral infarction without residual deficits
CPT/HCPCS: 36246; 75710; G0269

== ENCOUNTER 2018-07-27 14:38 | Inpatient (IN) | payer MEDICARE, OTHER ==
[~2018-07-27] VITALS: Ht 172.7 cm; Wt 80.8 kg
[~2018-07-27 14:38] MED LIST changes: -ADVAIR INH; -AZIT-12 PO; -BENZ-18 PO; -BUPIVACAINE HCL 0.5% 10 ML VIAL As Ordered ONE; -CEFD300CAP PO; -GUAISYP5 PO; -HEPARIN 1,000 UNITS/ML 10ML VIAL (FOR RADIOLOGY& DIALYSIS ONLY) As Ordered ONE; -ISOVUE-300 61% 50ML VIAL (Q9967) As Ordered ONE; -KEPP250T5 PO; -LEVO250T12 PO; -LIDOCAINE 2% MDV 20 ML VIAL As Ordered ONE; -MIDAZOLAM INJ 2 MG/2 ML VIAL (J2250) As Ordered ONE; -PROTAMINE SULF INJ 50 MG/5 ML VIAL (J2720) As Ordered ONE; +ROSU10TA5 PO; -ROSU10TA6 PO; -diphenhydrAMINE INJ 50MG/ML VIAL (J1200) As Ordered ONE; -fentaNYL 100 MCG/2 ML INJECTION (J3010) As Ordered ONE
--- NOTE | 2018-07-27 15:46 | REP ---
CT brain without contrast: History: Altered mental status. Slurred speech. Comparison head CT study: May 06 2018. Findings: Preliminary digital dog hair clipper radiograph is unremarkable. No bony calvarial lesion is seen. Vascular calcification is again noted in the distal vertebral and distal carotid arteries. There is no evidence of paranasal sinus disease. There are old bilateral basal ganglia lacunar infarcts again noted unchanged. Diffuse cerebral atrophy is noted. No acute infarction is seen. Small vessel periventricular white matter changes are noted as before. No hemorrhage, extra-axial fluid collection, mass or midline shift is seen. Impression: Old bilateral lacunar infarcts in the basal ganglia. No new infarct is seen. Diffuse atrophy and vascular calcification. No evidence of hemorrhage or mass. Electronically Signed by Mani Medina MD 07/27/2018 05:43 P
[2018-07-27 16:45] LABS: BASO # 0.1 10^3/uL (0.0-0.2); BASO % 0.5 % (0.0-1.0); EOS # 0.2 10^3/uL (0.0-0.50); HEMATOCRIT 30.8 % (42.0-52.0); HEMOGLOBIN 9.6 g/dl (13.5-17.5); LYMPH # 0.9 10^3/uL (1.5-4.5); LYMPH % 8.5 % (24.0-44.0); MEAN CORPUSCULAR HEMOGLOBIN 32.2 pg (27.0-33.0); MEAN CORPUSCULAR HGB CONC 31.2 g/dl (32.0-36.5); MEAN CORPUSCULAR VOLUME 103.4 fl (80.0-96.0); MONO # 0.7 10^3/uL (0.0-0.8); MONO % 6.2 % (0.0-5.0); NEUTROPHILS # 9.1 10^3/uL (1.8-7.7); NEUTROPHILS % 82.3 % (36.0-66.0); RED BLOOD COUNT 2.98 10^6/uL (4.30-6.10)
[2018-07-27 17:22] LABS: ALBUMIN 3.3 GM/DL (3.2-5.2); BILIRUBIN,DIRECT 0.2 MG/DL (0.0-0.2); BILIRUBIN,TOTAL 0.5 MG/DL (0.2-1.0); CALCIUM LEVEL 9.3 MG/DL (8.8-10.2); CK-MB VALUE MASS 1.1 NG/ML (<3.6); CREATININE FOR GFR 6.02 MG/DL (0.70-1.30); GLOMERULAR FILTRATION RATE 9.9 (>49); MB/CK RELATIVE INDEX 3.93 (< OR =4); POTASSIUM SERUM 4.3 MEQ/L (3.5-5.1); THYROID STIMULATING HORMONE 5.08 uIU/ML (0.358-3.740); TOTAL PROTEIN 7.3 GM/DL (6.4-8.2); TROPONIN I 0.04 NG/ML (< 0.10)
[2018-07-27 18:01] LABS: PLATELET COUNT, AUTOMATED 98 10^3/uL (150-450)
[2018-07-27] MEDS ORDERED: cefTRIAXone SOD 1 GM in D5W MINI-BAG PLUS 50 ML IV ONE (18:45)
--- NOTE | 2018-07-27 18:47 | REP ---
REASON: Dyspnea and fever with altered mental status. COMPARISON: 04/18/2018 Bibasilar patchy opacities have developed since the last exam. The technique utilized in obtaining the radiograph has magnified the cardiac silhouette and accentuated the interstitial markings. There is global cardiomegaly accentuated by technique .There has been previous median sternotomy. There is no significant change in the appearance of the osseous structures. IMPRESSION: 1. Bibasilar opacities suspicious for pneumonia and representing a change from the prior exam. 2 .Global cardiomegaly. Electronically Signed by Shon Arthur DO 07/27/2018 06:48 P
[2018-07-27] MEDS ORDERED: PROAAER10 INH (20:01)
[2018-07-27] MEDS ORDERED: ADVAIR INH (20:05)
[2018-07-27] MEDS ORDERED: ACETAMINOPHEN 500 MG TAB PO PRN (20:30)
[2018-07-27] MEDS ORDERED: GLUCOSE 4 GM CHEW TABLET PO PRN (20:30)
[2018-07-27] MEDS ORDERED: GLUCAGON FOR INJ 1 MG VIAL (J1610) SC PRN (20:30)
[2018-07-27] MEDS ORDERED: DEXTROSE 50% 50 ML SYRINGE IV PRN (20:30)
[2018-07-27] MEDS ORDERED: ALBUTEROL SULFATE 2.5 MG/0.5 ML INH NEB SOLN NEB PRN (20:30)
--- NOTE | 2018-07-27 21:44 | REPVR ---
EXAM: CT Chest Without Contrast EXAM DATE/TIME: 07/27/2018 8:30 PM CLINICAL HISTORY: 68 years old, male; Other: Pneumonia? TECHNIQUE: Imaging protocol: Axial computed tomography images of the chest without intravenous contrast. Coronal and sagittal reformatted images were created and reviewed. 3D rendering: MIP reconstructed images were created and reviewed. Radiation optimization: All CT scans at this facility use at least one of these dose optimization techniques: automated exposure control; mA and/or kV adjustment per patient size (includes targeted exams where dose is matched to clinical indication); or iterative reconstruction. COMPARISON: CT Chest without contrast 08/20/2017 8:51 AM FINDINGS: Lungs: There is atelectasis and infiltrate at the left lung base. Pleural space: There is a moderate amount of right pleural effusion. There is a moderate-sized left pleural effusion. Heart: There is moderate cardiomegaly. There is no pericardial effusion. Aorta: Unremarkable. No aortic aneurysm. Lymph nodes: Unremarkable. No enlarged lymph nodes. Bones/joints: There are bridging anterior osteophytes mid thoracic spine. Intraperitoneal space: There is fluid loculated in the right major fissure. Other findings: Sternal wires are present. Bilateral gynecomastia recommend clinical correlation. IMPRESSION: 1. Moderate right pleural effusion with loculation of fluid in the right major fissure. 2. Moderate left pleural effusion. 3. Atelectasis or pneumonia the left lung base. 4. Followup studies would be important to see that the lungs clear. 5. Moderate cardiomegaly. Electronically signed by: Oneal Josue On 07/27/2018 21:44:08 PM
--- NOTE | 2018-07-27 21:53 | HPEPDOC ---
General Date of Admission 07/27/18 Date of Service: Jul 27, 2018 Chief Complaint The patient is a 68-year-old male admitted with a reason for visit of AMS. Source: Patient, RN/MD, Old records Exam Limitations: No limitations Severity: Moderate History of Present Illness This is a 68-year-old man with PMH of ESRD, Diabetes, peripheral neuropathy, peripheral vascular disease , CAD, with prior coronary artery bypass graft (CABG) in 2018, history of multiple strokes affecting both the left and right sides with residual paresis, foot drops left > right, hyperlipidemia, Systolic CHF with EF of 30%, BPH, ischemic ulcers of the left lower extremity, chronic diabetic foot ulcer on the left lateral aspect of foot, Peripheral arterial disease with multiple interventions, stents on the left leg and being worked up for intervention on the right leg was at HD today where he had a syncopal episode about 1 hour into HD. As per the patient has been feeling a little unwell for the past 2 days , increased fatigue and malaise and he was wheezing yesterday so she insisted him to use his albuterol which he had nt used in over a year and he felt better. This morning he was in fact feeling better, had more energy, usual appetite, no wheezing and his breathing was good. Of note he had angiogram of his right leg 2 days ago ( Monday) followed by his HD. He went for his routine HD today where about 1 hour into his HD he rolled eyes eyes and Passed out. He was nonresponsive but his breathing was normal. He was urgently sent to the ED for Syncope. Patient denied any palpitation, or chest pain prior to the event. He did have bowel incontinence. As per he was confused for about an hour after the episode. he did not know where he was when she came to the hospital. Pateint does not remember the ambulance ride. However he does remember the ED physician. In the ED he was found to have an elevated WBC and CXR suggestive of new bilateral infiltrates. He was admitted for possible pneumonia and syncope. Home Medications Scheduled Amlodipine Besylate (Amlodipine Besylate) 2.5 Mg Tablet, 2.5 MG PO QHS, (Reported) Calcitriol (Calcitriol) 0.25 Mcg Cap, 0.25 MCG PO 3XW, (Reported) RECEIVES AT DIALYSIS ON MON, MON, MON Calcium Carbonate (Tums Ultra) 1,000 Mg Chw, 1,000 MG PO WM, (Reported) Carvedilol (Carvedilol) 12.5 Mg Tablet, 12.5 MG PO BID, (Reported) Cetirizine HCl (Cetirizine HCl) 10 Mg Tablet, 10 MG PO DAILY, (Reported) Clopidogrel Bisulfate (Clopidogrel) 75 Mg Tab, 75 MG PO DAILY, (Reported) Ergocalciferol (Vitamin D2) (Vitamin D2) 50,000 Unit Cap, 50,000 UNIT PO 1XWK, (Reported) TAKES ON WEDNESDAYS Folic Acid/Vit B Complex and C (Radha-Haja Tablet) 1 Tab Tab, 1 TAB PO DAILY, (Reported) Gabapentin (Neurontin) 100 Mg Capsule, 100 MG PO BID, (Reported) Insulin Human NPH (Humulin N) 100 Unit/1 Ml Vial, 1 DOSE SC DAILY, (Reported) SLIDING SCALE; REPORTED USUALLY BETWEEN 2 AND 4 UNITS Pantoprazole Sodium (Protonix) 40 Mg Tab, 40 MG PO DAILY, (Reported) Rosuvastatin Calcium (Rosuvastatin Calcium) 10 Mg Tablet, 10 MG PO QHS, (Reported) Sevelamer Carbonate (Renvela) 800 Mg Tab, 1,600 MG PO WM, (Reported) [Advair] , 2 PUFF INH BID, (Reported) PT DOES NOT KNOW STRENGTH; WILL VERIFY WITH PHARMACY TOMORROW WHEN THEY OPEN. DOES NOT SHOW UP IN EXTERNAL MED HISTORY. Scheduled PRN Acetaminophen (Acetaminophen) 500 Mg Tablet, 1,000 MG PO QID PRN for PAIN, (Reported) Albuterol Sulfate (Proair Hfa) 8.5 Gm Hfa.aer.ad, 2 PUFF INH Q4H PRN for SOB/WHEEZING, (Reported) Allergies Coded Allergies: aspirin (Verified Allergy, Severe, CLOSES AIRWAY, 06/15/18) Past Medical History Medical History ESRD/ hemodialysis Monday Hypertension DM wit Neuropathy Diabetic foot ulcer CAD/CABG Chronic systolic CHF. TTE 08/23 EF 40% with h/o recurrent pleural effusions History of CVA Peripheral vascular disease, angioplasty/stent left SFA 05/25, popliteal 04/24. Surgical History 1 VESSEL CABG 07/04/17 LEFT LEG ANGIOGRAM W/ BALLOONING 11/09/17 LEFT LOWER EXTREMITY ANGIOGRAM 04/19/18 LEFT LE ANGIOGRAM W/ STENT AND BALLOONING 05/03/18 in Left popliteal and SFA RIGHT ANGIOGRAM 05/28/18 LEFT ANGIOGRAM W/ BALLONING 05/29/18 LEFT 5TH TOE AMPUTATION AND WOUND DEBRIDEMENT 06/20/2018 Status post thrombectomy in left leg arteries in may 2018 H/O recurrent pleural effusion with 3 thoracocentesis in 2018 s/p pleurex catheter RIGHT PLEURAX CATH 08/20/17, RIGHT PLEURAX CATH REMOVED 12/27/17 APPENDECTOMY 1996 LAP- CHUY 2005 PERITONEAL DIALYSIS CATHETER PLACED 10/29/10 PROSTATE BIOPSIES 10/06/11 FISTULA INSERTION 07/02/13, NEW FISTULA RIGHT UPPER ARM 08/02/16 LASER SURGERY FOR DIABETIC RETINOPATHY 10/2013 REMOVAL OF PERITONEAL DIALYSIS CATHETER/EXSICION OF ABSCESS 01/17/14 BILATERAL CATARACT REMOVAL 06/2016 PORT INSERTION RIGHT UPPER CHEST 06/22 Family History FATHER: , DIAGNOSED WITH CANCER MOTHER: , CANCER 3 BROTHER(S) . 3 SON(S) . FATHER WITH LUNG CANCER, MOTHER WITH COLON CANCER WITH METS TO [facility].1 BROTHER FROM CANCER REALATED 10/17, 1 BROTHER WITH CABG AND DM. 1 SON WITH HYPERCHOLESTEROLEMIA, ASTHMA, GOUT, OTHER 2 SONS WITH MIGRAINES. Social History * Smoker: Denies Alcohol: Denies Drugs: denies A-FIB/CHADSVASC A-FIB History Current/History of A-Fib/PAF?: No Review of Systems Constitutional: Denies: Chills, Fever, Night Sweats Eyes: Denies: Pain, Vision change ENT: Denies: Head Aches, Ear Pain, Dysphagia Skin: Denies: Rash, Lesions, Breakdown Pulmonary: Denies: Dyspnea, Cough Cardiovascular: Denies: Chest Pain, Palpitations, Orthopnea, Paroxysmal Noc. Dyspnea, Lt Headedness Gastrointestinal: Denies: Nausea, Vomiting, Abdominal Pain, Diarrhea Hematologic: Denies: Bruising, Bleeding Excessively Neurological: Reports: Other Symptoms (has foot drop); Denies: Weakness, Change in speech, Confusion Physical Examination General Exam: Positive: Alert, Cooperative, No Acute Distress Eye Exam: Positive: PERRLA, Conjunctiva & lids normal, EOMI; Negative: Sclera icteric ENT Exam: Positive: Atraumatic, Mucous membr. moist/pink, Pharynx Normal Neck Exam: Positive: Supple; Negative: JVD, thyromegaly Chest Exam: Positive: Clear to auscultation, Normal air movement Heart Exam: Positive: Rate Normal, Regular Rhythm, Normal S1, Normal S2, Murmurs (Continous murmur head conducted from the AVF); Negative: Rubs Telemetry: Positive: No significant arrhythmia Abdomen Exam: Positive: Normal bowel sounds, Soft; Negative: Tenderness, Hepatospenomegaly Extremity Exam: Positive: Normal pulses, Other ( left upper ex AVF); Negative: Clubbing, Cyanosis, Edema Skin Exam: Positive: Breakdown, Lesion, Other skin issue (chronic ulcer on lorenzo left lateral foot with placentrex dressing on ) Vital Signs Vital Signs Date Time Temp Pulse Resp B/P (MAP) Pulse Ox O2 Delivery O2 Flow Rate FiO2 07/27/18 19:15 96.8 07/27/18 19:12 75 18 166/79 (108) 100 Nasal Cannula 2.0 Laboratory Data Labs 24H Laboratory Tests 2 07/27/18 16:03: Bedside Glucose (Misc Panel) 81 07/27/18 16:30: Immature Granulocyte % (Auto) 0.5, White Blood Count 11.0H, Red Blood Count 2.98L, Hemoglobin 9.6L, Hematocrit 30.8L, Mean Corpuscular Volume 103.4H, Mean Corpuscular Hemoglobin 32.2, Mean Corpuscular Hemoglobin Concent 31.2L, Red Cell Distribution Width 15.2H, Platelet Count 98L, Neutrophils (%) (Auto) 82.3H, Lymphocytes (%) (Auto) 8.5L, Monocytes (%) (Auto) 6.2H, Eosinophils (%) (Auto) 2.0, Basophils (%) (Auto) 0.5, Neutrophils # (Auto) 9.1H, Lymphocytes # (Auto) 0.9L, Monocytes # (Auto) 0.7, Eosinophils # (Auto) 0.2, Basophils # (Auto) 0.1, Nucleated Red Blood Cells % (auto) 0.0, Immature Platelet Fraction 3.6, Anion Gap 8, Glomerular Filtration Rate 9.9L, Calcium Level 9.3, Aspartate Amino Transf (AST/SGOT) 19, Alanine Aminotransferase (ALT/SGPT) 15, Alkaline Phosphatase 84, Total Bilirubin 0.5, Direct Bilirubin 0.2, Total Creatine Kinase 28L, Creatine Kinase MB 1.1, Creatine Kinase MB Relative Index 3.93, Troponin I 0.04, Total Protein 7.3, Albumin 3.3, Albumin/Globulin Ratio 0.83L, Thyroid Stimulating Hormone (TSH) 5.080H 07/27/18 16:31: Lactic Acid Level 1.3 07/27/18 17:53: Bedside Glucose (Misc Panel) 85 CBC/BMP Laboratory Tests 07/27/18 16:30 Red Blood Count 2.98 L, Mean Corpuscular Volume 103.4 H, Mean Corpuscular Hemoglobin 32.2, Mean Corpuscular Hemoglobin Concent 31.2 L, Red Cell Distribution Width 15.2 H, Neutrophils (%) (Auto) 82.3 H, Lymphocytes (%) (Auto) 8.5 L, Monocytes (%) (Auto) 6.2 H, Eosinophils (%) (Auto) 2.0, Basophils (%) ( Auto) 0.5, Neutrophils # (Auto) 9.1 H, Lymphocytes # (Auto) 0.9 L, Monocytes # (Auto) 0.7, Eosinophils # (Auto) 0.2, Basophils # (Auto) 0.1 Microbiology Microbiology 07/27/18 Blood Culture, Received Pending 07/27/18 Blood Culture, Received Pending Assessment/Plan This is a 68-year-old man with PMH of ESRD, Diabetes, peripheral neuropathy, peripheral vascular disease , CAD, with prior coronary artery bypass graft (CABG) in 2018, history of multiple strokes affecting both the left and right sides with residual paresis, foot drops left > right, hyperlipidemia, Systolic CHF with EF of 30%, BPH, ischemic ulcers of the left lower extremity, chronic diabetic foot ulcer on the left lateral aspect of foot, Peripheral arterial disease with multiple interventions, stents on the left leg and being worked up for intervention on the right leg was at HD today where he had a syncopal episode about 1 hour into HD. As per the patient has been feeling a little unwell for the past 2 days , increased fatigue and malaise and he was wheezing yesterday so she insisted him to use his albuterol which he had nt used in over a year and he felt better. This morning he was in fact feeling better, had more energy, usual appetite, no wheezing and his breathing was good. Of note he had angiogram of his right leg 2 days ago ( Wednesday) followed by his HD. He went for his routine HD today where about 1 hour into his HD he rolled eyes eyes and Passed out. He was nonresponsive but his breathing was normal. He was urgently sent to the ED for Syncope. Patient denied any palpitation, or chest pain prior to the event. He did have bowel incontinence. As per he was confused for about an hour after the episode. he did not know where he was when she came to the hospital. Pateint does not remember the ambulance ride. However he does remember the ED physician. In the ED he was found to have an elevated WBC and CXR suggestive of new bilateral infiltrates. He was admitted for possible pneumonia and syncope. Syncope/ Seizure/TIA could be due to transient hypotension during HD which compromised cerebral circulation resulting in Syncope. He has bad generalized atherosclerotic disease so a slight drop in Bp can severely compromise cerebral circulation. patient had about an hour of confusion after the event also had bowel incontinence. second episode this year. Also has h/o multiple strokes in the past. will get MRI of brain and EEG, Carotid US. monitor in telemetry Possible Pneumonia will get CT chest and procalcitonin. could be just atelectasis and fluids does have mildly elevated WBC which is new but no fever or cough. The elevated WBC could be reactive will continue with ceftriaxone and azithromycin for now Bilateral lower PVD continue Plavix/Statin. ESRD/HD follow as per nephrology HTN continue home meds DM insulin dependent with neuropathy continue lispro sliding scale CAD/CABG. Systolic CHF. as per nephro for fluid management H/O CVA. CTH with no acute changes. 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 DVT prophylaxis Plan / VTE VTE Prophylaxis Ordered?: Yes YENNY PLASCENCIA MD Jul 27, 2018 19:33
[2018-07-27 22:18] LABS: PROLACTIN 51.4 NG/ML (2.1-17.7)
[2018-07-27 22:30] VITALS: BP 167/90
[2018-07-27] MEDS: HEPARIN SOD (PORCINE) 5000 UNITS/ML VIAL SC SCH (23:14)
[2018-07-27] MEDS: ROSUVASTATIN 10 MG TAB (CRESTOR) PO SCH (23:14)
[2018-07-27] MEDS: CARVedilol 12.5 MG TAB PO SCH (23:15)
[2018-07-27] MEDS: GABAPENTIN 100 MG CAP PO SCH (23:15)
[2018-07-28] MEDS: ADVAIR HFA 230/21MCG INHALER INH SCH ×3 (00:37→20:52)
[2018-07-28 06:00] VITALS: BP 144/65
[2018-07-28] MEDS: HumaLOG INSULIN (NovoLOG) PER UNIT SC SCH ×3 (08:30→16:59)
--- NOTE | 2018-07-28 08:47 | REP ---
Bilateral carotid artery duplex ultrasound: Peak flow velocity analysis: RIGHT LEFT ICA Peak flow velocity cm/sec 76.3 857.6 ICA Diastolic flow velocity cm/sec 18.3 19.6 ICA/CCA Ratio 0.81 0.64 ECA Peak flow velocity cm/sec 75.8 75.6 CCA Peak flow velocity cm/sec 94.6 90.7 The there is moderate atheromatous plaque bilaterally in the bulbs extending into the proximal internal carotid arteries and external carotid arteries bilaterally. The peak flow velocities are normal bilaterally. These findings indicate less than 50% narrowing bilaterally. There is no significant stenosis on the right or the left. There is antegrade flow in the vertebral arteries bilaterally. Electronically Signed by Ramesh Hill MD 07/28/2018 08:39 A
[2018-07-28 08:49] LABS: BASO % 0.6 % (0.0-1.0); EOS # 0.2 10^3/uL (0.0-0.50); EOS % 3.6 % (0.0-3.0); HEMATOCRIT 29.6 % (42.0-52.0); HEMOGLOBIN 9.2 g/dl (13.5-17.5); LYMPH % 15.7 % (24.0-44.0); MEAN CORPUSCULAR HEMOGLOBIN 32.2 pg (27.0-33.0); MEAN CORPUSCULAR HGB CONC 31.1 g/dl (32.0-36.5); MEAN CORPUSCULAR VOLUME 103.5 fl (80.0-96.0); MONO # 0.5 10^3/uL (0.0-0.8); MONO % 7.6 % (0.0-5.0); NEUTROPHILS # 4.6 10^3/uL (1.8-7.7); NEUTROPHILS % 72.2 % (36.0-66.0); PLATELET COUNT, AUTOMATED 101 10^3/uL (150-450); RED BLOOD COUNT 2.86 10^6/uL (4.30-6.10); WHITE BLOOD COUNT 6.4 10^3/uL (4.0-10.0)
[2018-07-28] MEDS: CETIRIZINE (ZyrTEC) 10 MG TAB PO SCH (09:25)
[2018-07-28] MEDS: GABAPENTIN 100 MG CAP PO SCH ×2 (09:25→21:04)
[2018-07-28] MEDS: PANTOPRAZOLE 40MG TAB (PROTONIX) PO SCH (09:25)
[2018-07-28] MEDS: (RENVELA) SEVELAMER **CARBONate** 800 MG TAB PO SCH ×3 (09:25→16:58)
[2018-07-28] MEDS ORDERED: ADVA230A INH (09:26)
[2018-07-28] MEDS: HEPARIN SOD (PORCINE) 5000 UNITS/ML VIAL SC SCH ×2 (09:26→21:04)
[2018-07-28] MEDS: CLOPIDOGREL 75 MG TAB PO SCH (09:27)
[2018-07-28 09:56] LABS: ALBUMIN 3.2 GM/DL (3.2-5.2); BILIRUBIN,TOTAL 0.3 MG/DL (0.2-1.0); CALCIUM LEVEL 9.2 MG/DL (8.8-10.2); CREATININE FOR GFR 7.06 MG/DL (0.70-1.30); GLOMERULAR FILTRATION RATE 8.3 (>49); MAGNESIUM LEVEL 2.3 MG/DL (1.8-2.4); POTASSIUM SERUM 4.2 MEQ/L (3.5-5.1); TOTAL PROTEIN 7.8 GM/DL (6.4-8.2)
[2018-07-28] MEDS ORDERED: HEPARIN 1,000 UNITS/ML 10ML VIAL (FOR RADIOLOGY& DIALYSIS ONLY) IV ONE (10:45)
--- NOTE | 2018-07-28 11:22 | IPNPDOC ---
Text Note Date of Service The patient was seen on 07/28/18. NOTE Mr. Dykes is seen on bedside rounds this morning in HD. He states he is doing much better than when he first came in, his is at bedside and states his mentation is back at his baseline. Apparently he became quite unresponsive during HD yesterday and was incontinent for a BM. Currently he has no complaints during HD., denies cp, sob, n/v, no heart palpitations. ROS: 12 point ROS reviewed with pt and negative except for above pertinent positive findings PE: General: 68 yo male laying in HD bed receiving HD, NAD, comfortable, speaking in full sentences Cardiac: Otilia s1 and s1., soft +2 systolic murmur appreciated, no other murmurs identified Resp: CTA b/l, no rales, wheezing or rhonchi Abdomen: Thin, nabsx4, nontender to palpation, no distension, no hepato splenomegaly or masses appreciated, no rebound ridigty or guarding Extremities: No cyanosis, mottling or edema- right hallux metatarsal phalangeal joint is wrapped, removing dressing shows necrotic tissue just on superior aspect, he was scheduled for angiogram of right LE apparently according to , left MTP is covered, second MTP joint revels small portion of dry necrotic skin on just superior portion of toe, left lateral aspect of foot is covered with optifoam, which was not undressed, dressing appears intact, dry indicates today it needs to be changed today Imaging: -CT chest showed : 1. Moderate right pleural effusion with loculation of fluid in the right major fissure. 2. Moderate left pleural effusion. 3. Atelectasis or pneumonia the left lung base. 4. Followup studies would be important to see that the lungs clear. 5. Moderate cardiomegaly. could be just atelectasis and fluids does have mildly elevated WBC which is new but no fever or cough. Assessment and plan: 1. Syncope/ Seizure/TIA -likely 2/2 transient hypotension during HD-BP has been stable here, in fact a bit hypertensive -Although he has history of multiple stroke sin the past -Carotid u/s shows <50% stenosis b/l c. arteries -MRI brain pending, EEG pending -continue to monitor on telemetry 2. Possible Pneumonia - Procalcitonin is high, likely bacterial infection - Imaging consistent with pneumonia - WBC has resolved - History of pseudomonas in past, d/c ceftriaxone, begin cefepime - c/w Azithromycin 3. Bilateral lower PVD continue Plavix/Statin. 4. ESRD/HD -HD today, nephrology consulted, appreciate their help 4. HTN -a bit hypertensive, HD should help with this, c/w home meds for now 5. DM insulin dependent with neuropathy -SSI with hypoglycemic protocol 6. AD/CABG -stable, 7. HFpEF -Nephrology has been consulted, appreciate their help with fluid management 8. H/O CVA. -CTH with no acute changes. -MRI pending 9. Chronic LE diabetic foot ulcer Chronic Diabetic foot ulcer follows with Su -Consult wound nurse DVT prophylaxis-pt receiving heparin in HD VS,Fishbone, I+O VS, Fishbone, I+O Laboratory Tests 07/27/18 16:30 Red Blood Count 2.98 L, Mean Corpuscular Volume 103.4 H, Mean Corpuscular Hemoglobin 32.2, Mean Corpuscular Hemoglobin Concent 31.2 L, Red Cell Distribution Width 15.2 H, Neutrophils (%) (Auto) 82.3 H, Lymphocytes (%) (Auto) 8.5 L, Monocytes (%) (Auto) 6.2 H, Eosinophils (%) (Auto) 2.0, Basophils (%) (Auto) 0.5, Neutrophils # (Auto) 9.1 H, Lymphocytes # (Auto) 0.9 L, Monocytes # (Auto) 0.7, Eosinophils # (Auto) 0.2, Basophils # (Auto) 0.1 07/28/18 08:17 Red Blood Count 2.86 L, Mean Corpuscular Volume 103.5 H, Mean Corpuscular Hemoglobin 32.2, Mean Corpuscular Hemoglobin Concent 31.1 L, Red Cell Distribution Width 15.3 H, Neutrophils (%) (Auto) 72.2 H, Lymphocytes (%) (Auto) 15.7 L, Monocytes (%) (Auto) 7.6 H, Eosinophils (%) (Auto) 3.6 H, Basophils (%) (Auto) 0.6, Neutrophils # (Auto) 4.6, Lymphocytes # (Auto) 1.0 L, Monocytes # (Auto) 0.5, Eosinophils # (Auto) 0.2, Basophils # (Auto) 0.0, Calcium Level 9.2, Aspartate Amino Transf (AST/SGOT) 14, Alanine Aminotransferase (ALT/SGPT) 26, Alkaline Phosphatase 82, Total Bilirubin 0.3, Total Protein 7.8, Albumin 3.2 Vital Signs Date Time Temp Pulse Resp B/P (MAP) Pulse Ox O2 Delivery O2 Flow Rate FiO2 07/28/18 06:00 97.9 80 16 144/65 (91) 97 07/27/18 19:12 Nasal Cannula 2.0 I&O- Last 24 Hours up to 6 AM 07/28/18 06:00 Intake Total 100 ml Balance 100 ml GME ATTESTATION GME ATTESTATION My faculty preceptor for this patient encounter was physically present during the encounter and was fully available. All aspects of the patient interview, examination, medical decision making process, and medical care plan development were reviewed and approved by the faculty preceptor. The faculty preceptor is aware and concurs with the plan as stated in the body of this note and will attest to such by his/her cosignature. ATTENDING NOTE I, Johnny Edward, have independently examined this patient and performed my own physical exam, as well as reviewed the documentation and edited where necessary. I have discussed in detail with the resident / student the findings and plan of treatment as documented by the resident / student and edited their note. I agree with their findings and treatment plan and have edited their documentation. I will continue to follow the patient during this hospital stay. MURALI JUNIOR DO Jul 28, 2018 11:22 JOHNNY EDWARD MD Jul 28, 2018 11:52
--- NOTE | 2018-07-28 12:44 | REPVR ---
EXAM: MR Head Without Contrast EXAM DATE/TIME: 07/28/2018 9:35 AM CLINICAL HISTORY: 68 years old, male; Speech disturbance and other: Unconscious at dialysis; Slurred speech; Additional info: Tia/ stroke TECHNIQUE: Imaging protocol: MR of the head without contrast. COMPARISON: MRI-Brain without Contrast 05/04/2013 11:35 AM FINDINGS: Brain: No evidence of restricted diffusion to suggest an acute infarct. Moderate periventricular, subcortical, deep white matter small vessel ischemic changes. Gliosis in left frontal, left periventricular, and left inferior temporal lobes likely representing old infarcts. Ventricles: Ventricles and sulci are enlarged representing moderate volume loss. Bones/joints: Unremarkable. Soft tissues: Normal. Sinuses: Mild mucosal thickening of ethmoidal air cells. Mastoid air cells: Moderate fluid in left mastoid air cells. Trace fluid in right mastoid air cells. Orbits: Unremarkable. IMPRESSION: No evidence of restricted diffusion to suggest an acute infarct. Moderate small vessel ischemic changes. Gliosis in left frontal, left periventricular, and left inferior temporal lobes likely representing old infarcts. Moderate fluid in left mastoid air cells. Trace fluid in right mastoid air cells. Electronically signed by: Chela Reeves On 07/28/2018 12:43:51 PM
--- NOTE | 2018-07-28 13:01 | CR ---
DATE OF CONSULTATION: 07/28/2018 REQUESTING PHYSICIAN: Dr. Johnny Chisholm CONSULTING PHYSICIAN: Dr. Banda REASON FOR CONSULTATION: Management of end-stage renal disease and hemodialysis. CHIEF COMPLAINT: The patient was sent from dialysis center because of altered mental status. HISTORY OF PRESENT ILLNESS: Mr. Dykes is a 68-year-old male with past medical history of end-stage renal disease on hemodialysis every Monday, Monday, Monday, diabetes mellitus type 2, history of coronary artery disease, recent history of coronary artery bypass grafting (CABG) last year, multiple cerebrovascular accidents (CVAs) in the past, peripheral vascular disease, history of heart failure with reduced ejection fraction. The patient was being dialyzed yesterday according to his regular schedule; however, about 1 hour into his dialysis he had a syncopal episode with altered mental status and unresponsiveness. The patient is a DO NOT RESUSCITATE at dialysis center. No resuscitation was done. The patient was given some fluid and oxygen and EMS was called. The patient does not remember the episode. The patient's reports that whenever his blood pressure goes below 110 he has these episodes. He was admitted under the hospitalist service last night. He was also found to have a questionable infiltrate on his lung imaging. He was started on IV antibiotics. Nephrology service was called for further help in the management of this patient and arrangement of hemodialysis. I saw and evaluated the patient today morning during hemodialysis. He was tolerating the hemodialysis procedure well. He was awake and alert and he was back to his baseline. PAST MEDICAL HISTORY: Past medical history of end-stage renal disease on hemodialysis every Monday, Monday, Monday. History of hypertension with chronic kidney disease. Diabetes mellitus type 2 complicated by peripheral neuropathy. Peripheral vascular disease. Coronary artery disease status post CABG. Chronic systolic heart failure. History of recurrent pleural effusions in the past requiring a PleurX catheter, which has been removed now. History of CVA with expressive dysarthria. PAST SURGICAL HISTORY: Status post coronary artery bypass grafting on July 04, 2017. History of multiple angiograms of the legs. Status post left fifth toe amputation on June 20, 2018. History of PleurX catheter on the right side in August 2017, which was removed in December 2017. Appendectomy in 1996. History of peritoneal dialysis catheter in the past. Status post right upper arm fistula in the past and now he has left upper arm fistula as well. Bilateral cataract surgeries. ALLERGIES: The patient is allergic to ASPIRIN. FAMILY HISTORY: No significant family history of end-stage renal disease requiring hemodialysis. Positive history of lung cancer in father and colon cancer in mother. REVIEW OF SYSTEMS: CONSTITUTIONAL: He denies any fevers or chills. EYES: He denies any blurry vision, double vision. ENT: Denies any dysphagia, odynophagia. CARDIOVASCULAR: Denies any chest pain or palpitation. RESPIRATORY: Denies any shortness of breath. GASTROINTESTINAL (GI): Denies any nausea, vomiting. GENITOURINARY: Denies any dysuria or hematuria. MUSCULOSKELETAL: He denies any muscle aches and pains. He does report of peripheral vascular disease. PERIODICALS LIBRARY ASSISTANT: He does report history of strokes and syncope yesterday. SKIN: He denies any rashes or ulcers. ENDOCRINE: He did reports history of secondary hyperparathyroidism and diabetes mellitus type 2. HEMATOLOGY/ONCOLOGY: He denies any easy bleeding or bruising. All other review of systems is negative. PHYSICAL EXAMINATION GENERAL: The patient is awake, alert, oriented times three, laying in bed getting hemodialysis done. VITAL SIGNS: Temperature is 97.9 degrees Fahrenheit, blood pressure 144/65, pulse is 80, respiratory of 16, saturating 97% on room air. HEAD AND NECK EXAM: Extraocular muscles intact. Pupils equally round and reactive to light. Mucous membranes are moist. NECK: Neck is supple. There is no jugular venous distention (JVD). CARDIOVASCULAR: S1, S2 regular rate. No edema of the bilateral lower extremities. RESPIRATORY: Decreased breath sounds at the bases, otherwise no active rales or rhonchi. ABDOMEN: Soft. Positive bowel sounds. Nontender. No organomegaly. MUSCULOSKELETAL: Patient has a dressing on the left big toe, left fifth toe is amputated and there is a dressing on the wound site. The right big toe is ischemic and the patient has a dressing on it as well. PERIODICALS LIBRARY ASSISTANT: The patient has dysarthria, otherwise no focal deficit. He moves all extremities and follows commands. SKIN: No rashes or ulcers. LABORATORY REVIEW: CBC showed WBC 6.4, hemoglobin 9.2, platelets are 101. BMP shows sodium 138, potassium 4.2, chloride 103, bicarb 27, BUN 37, creatinine 7, calcium is 9.2, albumin is 3.2. Microbiology: Respiratory viral panel is negative. Blood cultures are negative so far. IMAGING: A carotid Doppler was done that showed no significant carotid artery stenosis. CT chest was done yesterday which showed moderate right sided effusion with loculation of fluid in the right major fissure and moderate left-sided effusion. There was atelectasis or pneumonia in the left lung base. There was moderate cardiomegaly. CURRENT INPATIENT MEDICATIONS: The patient's medications were all reviewed by me. He is on: - azithromycin IV - cefepime IV - Tylenol p.r.n. - albuterol p.r.n. - He is on amlodipine because of history of systolic heart failure, I am stopping the amlodipine. - calcitriol 0.25 mcg p.o. Monday, Monday, Monday - Coreg 12.5 mg p.o. twice a day - Zyrtec 10 mg daily - Plavix 75 mg daily - gabapentin 100 mg p.o. twice a day - heparin subcu - Protonix 40 mg p.o. daily - rosuvastatin 10 mg q.h.s. - Advair twice a day - Renvela 1600 mg p.o. with meals - Nephro-Haja vitamin ASSESSMENT: 68-year-old male with history of end-stage renal disease on hemodialysis, history of systolic heart failure, hypertension, diabetes mellitus type 2, admitted at this time with a syncopal episode during dialysis. PLAN: 1. End-stage renal disease on dialysis. The patient was dialyzed only for 1 hour yesterday. I am going to do 3 hours of dialysis again today. I will try to remove at least 2 kg of fluid. The patient is tolerating dialysis well so far. 2. Syncope versus seizure activity yesterday. The patient is going to have electroencephalogram. Most likely he had a hypotensive episode during dialysis. He is awake and alert. His blood pressure medications were not given today morning before dialysis. I am going to stop the amlodipine since the patient has systolic heart failure anyways. It is okay to continue the carvedilol. Carotid Doppler is negative for ischemia. The patient has had multiple ischemic episodes in the past. 3. Infiltrate on the CT chest. The patient most likely has fluid in the lungs. He has a history of pleural effusion in the past as well. PleurX catheter on the right side has been removed. I will try to remove at least 2 liters of fluid as tolerated. The patient is basically being given ceftriaxone and azithromycin. 4. Anemia and end-stage renal disease. Hemoglobin is 9.2 which is suboptimal. Patient will be given a dose of Aranesp with dialysis. 5. Secondary hyperparathyroidism. Continue current dose of calcitriol 0.25 mcg p.o. Monday, Monday, Monday. 6. Chronic kidney disease/mineral bone disease. Continue home dose of Renvela 1600 mg p.o. with meals. 7. Chronic systolic heart failure. Continue Coreg. Avoid use of calcium channel blockers. If his blood pressure is high then hydralazine can be started. Volume management is with dialysis. Thank you for involving me in the care of this patient. I shall be happy to follow the patient along with you tomorrow morning.
[2018-07-28] MEDS: NEPHRO-VIT TAB (NEPHROCAPS) PO SCH (13:48)
[2018-07-28] MEDS: CARVedilol 12.5 MG TAB PO SCH ×2 (13:48→21:04)
[2018-07-28 14:00] VITALS: BP 117/68
[2018-07-28] MEDS: CEFEPIME HCL 1 GM in D5W MINI-BAG PLUS 50 ML IV SCH (16:17)
[2018-07-28] MEDS: AZITHROMYCIN INJ 500 MG, VIAL MATE ADAPTER 1 EACH in D5W 250 ML IV SCH (16:59)
[2018-07-28] MEDS: ROSUVASTATIN 10 MG TAB (CRESTOR) PO SCH (21:04)
[2018-07-28 22:00] VITALS: BP 134/63
[2018-07-29 06:00] VITALS: BP 131/60
[2018-07-29 06:22] LABS: BASO % 0.6 % (0.0-1.0); EOS # 0.2 10^3/uL (0.0-0.50); EOS % 3.2 % (0.0-3.0); HEMATOCRIT 26.3 % (42.0-52.0); HEMOGLOBIN 8.4 g/dl (13.5-17.5); LYMPH # 1.1 10^3/uL (1.5-4.5); LYMPH % 22.2 % (24.0-44.0); MEAN CORPUSCULAR HEMOGLOBIN 32.9 pg (27.0-33.0); MEAN CORPUSCULAR HGB CONC 31.9 g/dl (32.0-36.5); MEAN CORPUSCULAR VOLUME 103.1 fl (80.0-96.0); MONO # 0.5 10^3/uL (0.0-0.8); MONO % 9.5 % (0.0-5.0); NEUTROPHILS # 3.2 10^3/uL (1.8-7.7); NEUTROPHILS % 64.1 % (36.0-66.0); RED BLOOD COUNT 2.55 10^6/uL (4.30-6.10)
[2018-07-29 06:27] LABS: PLATELET COUNT, AUTOMATED 86 10^3/uL (150-450)
[2018-07-29 06:34] LABS: CALCIUM LEVEL 8.9 MG/DL (8.8-10.2); CREATININE FOR GFR 5.34 MG/DL (0.70-1.30); GLOMERULAR FILTRATION RATE 11.4 (>49); MAGNESIUM LEVEL 2.1 MG/DL (1.8-2.4); POTASSIUM SERUM 4.2 MEQ/L (3.5-5.1)
--- NOTE | 2018-07-29 06:40 | ECGEPIP ---
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
[2018-07-29] MEDS: ADVAIR HFA 230/21MCG INHALER INH SCH ×2 (07:31→21:39)
[2018-07-29] MEDS: GABAPENTIN 100 MG CAP PO SCH ×2 (08:12→20:46)
[2018-07-29] MEDS: (RENVELA) SEVELAMER **CARBONate** 800 MG TAB PO SCH ×3 (08:12→17:57)
[2018-07-29] MEDS: CARVedilol 12.5 MG TAB PO SCH ×2 (08:12→20:47)
[2018-07-29] MEDS: PANTOPRAZOLE 40MG TAB (PROTONIX) PO SCH (08:12)
[2018-07-29] MEDS: NEPHRO-VIT TAB (NEPHROCAPS) PO SCH (08:12)
[2018-07-29] MEDS: CETIRIZINE (ZyrTEC) 10 MG TAB PO SCH (08:12)
[2018-07-29] MEDS: CLOPIDOGREL 75 MG TAB PO SCH (08:12)
[2018-07-29] MEDS: HEPARIN SOD (PORCINE) 5000 UNITS/ML VIAL SC SCH ×2 (08:13→20:46)
[2018-07-29] MEDS: HumaLOG INSULIN (NovoLOG) PER UNIT SC SCH ×4 (08:13→20:39)
--- NOTE | 2018-07-29 13:21 | IPNPDOC ---
Text Note Date of Service The patient was seen on 07/29/18. NOTE Subjective: Patient is a 68-year-old male with a PMHx of ESRD on HD (MWF), IDDM2, Peripheral neuropathy, CAD s/p CABG (2017), Hx of multiple strokes affecting both the left and right sides with residual paresis, foot drops left > right, DLP, Diastolic and Systolic CHF (EF: 40%), BPH, ischemic ulcers of the left lower extremity, chronic diabetic foot ulcer on the left lateral aspect of foot, PVD with multiple interventions (Stents of left leg and being worked up for intervention on the right leg) who had presented to the ED from HD after he had passed out. Patient had reported stool incontinence was also significantly confused for 1 hour after the episode. Patient was admitted to hospitalist service for further evaluation and treatment. Patient was seen and examined at the bedside. , Currently patient is seen sitting up in bed. He denies nausea, vomiting, abdominal pain, constipation or diarrhea. Denies chest pain, shortness breath or palpitations. Is awake, alert and oriented 3. Objective: Vitals (See below) General: Lying in bed, no acute distress, comfortable, AAOx3 HEENT: NC, AT CVS: +S1S2 Lungs: Fair air entry b/l, -w/r/r Abdomen: Soft, ND, NT Extremities: - Edema, - Calf tenderness Imaging: - CT head 07/27: Old bilateral lacunar infarcts in the basal ganglia. No new infarct is seen. Diffuse atrophy and vascular calcification. No evidence of hemorrhage or mass. - CXR 07/27: 1. Bibasilar opacities suspicious for pneumonia and representing a change from the prior exam. 2 .Global cardiomegaly. - Chest CT 07/27: 1. Moderate right pleural effusion with loculation of fluid in the right major fissure. 2. Moderate left pleural effusion. 3. Atelectasis or pneumonia the left lung base. 4. Followup studies would be important to see that the lungs clear. 5. Moderate cardiomegaly. - Vascular US 07/27: These findings indicate less than 50% narrowing bilaterally. There is no significant stenosis on the right or the left. There is antegrade flow in the vertebral arteries bilaterally. - MRI Brain 07/28: No evidence of restricted diffusion to suggest an acute infarct. Moderate small vessel ischemic changes. Gliosis in left frontal, left periventricular, and left inferior temporal lobes likely representing old infarcts. Moderate fluid in left mastoid air cells. Trace fluid in right mastoid air cells. Assessment and plan: Syncope - possibly 2/2 seizure activity, possibly 2/2 TIA - No focal neurologic deficits noted - MRI negative for acute infarction - Carotid US without any significant stenosis - EEG pending - c/w Telemetry monitoring Imaging consistent with pneumonia; history of pseudomonas - Patient reports a mild cough, denies any significatn SOB - Remains afebrile, hemodynamically stable - No lactic acidosis; s/p Leukocytosis - Imaging consistent with possible pneumonia - c/w Cefepime / Azithromycin; s/p Ceftriaxone Bilateral LE PVD - c/w Plavix and Rosuvastatin ESRD on HD (MWF) - Nephrology on consultation HTN - BP well controlled - c/w Carvedilol IDDM2 with Neuropathy - c/w ISS CAD s/p CABG - c/w Plavix and Rosuvastatin Diastolic and Systolic CHF (EF: 40%) - No evidence of fluid overload - c/w Dialysis as scheduled Hx of CVA - With history of left and right side residual paresis - c/w Plavix and Rosuvastatin Chronic LE diabetic foot ulcer - Follows with Dr. Blue as an outpatient - c/w wound care GI prophylaxis - c/w Protonix DVT prophylaxis - c/w Heparin VS,Fishbone, I+O VS, Fishbone, I+O Laboratory Tests 07/29/18 05:59 Red Blood Count 2.55 L, Mean Corpuscular Volume 103.1 H, Mean Corpuscular Hemoglobin 32.9, Mean Corpuscular Hemoglobin Concent 31.9 L, Red Cell Distribution Width 15.3 H, Neutrophils (%) (Auto) 64.1, Lymphocytes (%) (Auto) 22.2 L, Monocytes (%) (Auto) 9.5 H, Eosinophils (%) (Auto) 3.2 H, Basophils (%) (Auto) 0.6, Neutrophils # (Auto) 3.2, Lymphocytes # (Auto) 1.1 L, Monocytes # (Auto) 0.5, Eosinophils # (Auto) 0.2, Basophils # (Auto) 0.0, Calcium Level 8.9 Vital Signs Date Time Temp Pulse Resp B/P (MAP) Pulse Ox O2 Delivery O2 Flow Rate FiO2 6/23/19 08:12 77 131/60 07/29/18 06:00 97.7 17 98 07/27/18 19:12 Nasal Cannula 2.0 I&O- Last 24 Hours up to 6 AM 07/29/18 06:00 Intake Total 1560 ml Output Total 2000 ml Balance -440 ml GAYLA EDWARD MD Jul 29, 2018 13:21
[2018-07-29 14:00] VITALS: BP 121/78
[2018-07-29] MEDS: CEFEPIME HCL 1 GM in D5W MINI-BAG PLUS 50 ML IV SCH (16:12)
[2018-07-29] MEDS: AZITHROMYCIN INJ 500 MG, VIAL MATE ADAPTER 1 EACH in D5W 250 ML IV SCH (16:48)
[2018-07-29] MEDS: ROSUVASTATIN 10 MG TAB (CRESTOR) PO SCH (20:46)
[2018-07-29] MEDS ORDERED: DARBEPOETIN 100 MCG/0.5 ML *DIALYSIS* SYRINGE (J0882) IV SCH (21:00)
[2018-07-29 22:00] VITALS: BP 150/69
--- NOTE | 2018-07-30 02:14 | IPN ---
DATE OF SERVICE: 07/29/2018 SUBJECTIVE: Ayaan is seen and examined this morning at the bedside. Denies any overnight events or complaints. No shortness of breath, cough or chest pain. He was dialyzed yesterday without any issues reported. He is pending electroencephalogram (EEG) tomorrow. PHYSICAL EXAMINATION : VITAL SIGNS: Temperature 96.6, pulse 81, respiratory rate 17, blood pressure 121/78, saturating 97% on room air. Intake yesterday was 1560. Dialysis yesterday removed 1999, net negative 440. GENERAL: The patient is seen sitting in bed awake, alert, oriented and in no distress, comfortable. Tongue is moist. Neck is supple. Jugular veins are not elevated. CARDIAC: S1, S2, regular rate. No edema in the peripheries or in the dependent area. LUNGS: Lungs show clear air entry bilaterally. No crackle or rales. ABDOMEN: Abdomen is soft and nontender. There are bowel sounds. The left upper extremity fistula is patent with thrill and bruit. The lower extremities are negative for edema. The foot wound is not examined. NEUROLOGIC: There is a chronic stutter and speech impediment which is unchanged from prior. SKIN: Normal temperature and turgor. LABORATORY DATA: White count 5.0, hemoglobin 8.4, platelet 86. Sodium 139, potassium 4.2, bicarbonate 28. Brain MRI July 28 noted. No acute infarct. There are old infarcts that are present and there are small-vessel ischemic changes. INPATIENT MEDICATIONS: Inpatient medications reviewed by myself and no change from prior. PROBLEMS: 1. End-stage renal disease on hemodialysis on a Monday, Monday, Monday schedule. The patient's treatment on Monday as an outpatient was cut short due to mental status changes and unresponsiveness. He was subsequently dialyzed on Monday without any issues. We will plan to dialyze him on Monday to bring him back to his usual schedule. His volume status and electrolytes are all acceptable. His fistula is in good use. No change is being made to his chronic prescription. 2. Anemia in end-stage renal disease. Hemoglobin is suboptimal at 8.4. He did require a blood transfusion recently in the past several weeks though there is no need for blood transfusion at the present. We will continue with the usual anemia protocol of end-stage renal disease and Aramelissap. 3. Systolic congestive heart failure. Volume status is well compensated. Two liters of fluid were removed with dialysis yesterday. He continues on a moderate fluid restriction. 4. Syncope versus seizure. MRI noted. No new focal neurologic deficits on exam. He is pending electroencephalogram (EEG). 5. Hypertension. Blood pressures are acceptable and no changes are being made to the current regimen. Systolic is about 120s to 140s. 6. Chronic lower extremity diabetic foot ulcer. He continues with wound care as an outpatient and also does follow up with vascular surgery as well for history of peripheral vascular disease and continues on Plavix and statin.
[2018-07-30 06:00] VITALS: BP 148/75
[2018-07-30] MEDS: NEPHRO-VIT TAB (NEPHROCAPS) PO SCH (06:32)
[2018-07-30] MEDS: CLOPIDOGREL 75 MG TAB PO SCH (06:33)
[2018-07-30] MEDS: HEPARIN SOD (PORCINE) 5000 UNITS/ML VIAL SC SCH ×2 (06:33→21:00)
[2018-07-30] MEDS: PANTOPRAZOLE 40MG TAB (PROTONIX) PO SCH (06:33)
[2018-07-30] MEDS: (RENVELA) SEVELAMER **CARBONate** 800 MG TAB PO SCH ×3 (06:33→17:32)
[2018-07-30] MEDS: GABAPENTIN 100 MG CAP PO SCH ×2 (06:33→21:01)
[2018-07-30] MEDS: CETIRIZINE (ZyrTEC) 10 MG TAB PO SCH (06:33)
[2018-07-30] MEDS: CARVedilol 12.5 MG TAB PO SCH ×2 (06:34→21:01)
[2018-07-30 06:43] LABS: BASO % 0.8 % (0.0-1.0); EOS # 0.2 10^3/uL (0.0-0.50); EOS % 4.1 % (0.0-3.0); HEMATOCRIT 26.7 % (42.0-52.0); HEMOGLOBIN 8.4 g/dl (13.5-17.5); LYMPH % 20.1 % (24.0-44.0); MEAN CORPUSCULAR HEMOGLOBIN 31.6 pg (27.0-33.0); MEAN CORPUSCULAR HGB CONC 31.5 g/dl (32.0-36.5); MEAN CORPUSCULAR VOLUME 100.4 fl (80.0-96.0); MONO # 0.4 10^3/uL (0.0-0.8); MONO % 8.6 % (0.0-5.0); NEUTROPHILS # 3.4 10^3/uL (1.8-7.7); NEUTROPHILS % 66.2 % (36.0-66.0); PLATELET COUNT, AUTOMATED 113 10^3/uL (150-450); RED BLOOD COUNT 2.66 10^6/uL (4.30-6.10); WHITE BLOOD COUNT 5.1 10^3/uL (4.0-10.0)
[2018-07-30 07:08] LABS: PERCENT SATURATION 25.8 % (19.7-50.0)
[2018-07-30 07:15] LABS: CREATININE FOR GFR 6.69 MG/DL (0.70-1.30); GLOMERULAR FILTRATION RATE 8.8 (>49); MAGNESIUM LEVEL 2.1 MG/DL (1.8-2.4); POTASSIUM SERUM 4.4 MEQ/L (3.5-5.1)
[2018-07-30] MEDS: HumaLOG INSULIN (NovoLOG) PER UNIT SC SCH ×4 (07:30→21:00)
[2018-07-30] MEDS: ADVAIR HFA 230/21MCG INHALER INH SCH ×2 (07:35→19:46)
[2018-07-30] MEDS ORDERED: CALCITRIOL 0.25 MCG CAP (S0169) PO SCH (09:00)
--- NOTE | 2018-07-30 10:34 | IPNPDOC ---
Text Note Date of Service The patient was seen on 07/30/18. NOTE Subjective: Patient is a 68-year-old male with a PMHx of ESRD on HD (MWF), IDDM2, Peripheral neuropathy, CAD s/p CABG (2017), Hx of multiple strokes affecting both the left and right sides with residual paresis, foot drops left > right, DLP, Diastolic and Systolic CHF (EF: 40%), BPH, ischemic ulcers of the left lower extremity, chronic diabetic foot ulcer on the left lateral aspect of foot, PVD with multiple interventions (Stents of left leg and being worked up for intervention on the right leg) who had presented to the ED from HD after he had passed out. Patient had reported stool incontinence was also significantly confused for 1 hour after the episode. Patient was admitted to hospitalist service for further evaluation and treatment. Patient was seen and examined at the bedside. , Currently patient is seen during dialysis. He reports that his breathing is doing better. Still some mild cough with clear sputum production. Denies any chest pain or palpitations. Has not expense any other seizure/syncopal episodes. Denies any nausea, vomiting, abdominal pain or constipation. Objective: Vitals (See below) General: Lying in bed, no acute distress, comfortable, AAOx3 HEENT: NC, AT CVS: +S1S2 Lungs: Air entry is fair bilaterally, without auscultated rhonchi, rales or wheezing Abdomen: Soft, nondistended, without tenderness Extremities: No evidence of edema, - Calf tenderness Imaging: - CT head 07/27: Old bilateral lacunar infarcts in the basal ganglia. No new infarct is seen. Diffuse atrophy and vascular calcification. No evidence of hemorrhage or mass. - CXR 07/27: 1. Bibasilar opacities suspicious for pneumonia and representing a change from the prior exam. 2 .Global cardiomegaly. - Chest CT 07/27: 1. Moderate right pleural effusion with loculation of fluid in the right major fissure. 2. Moderate left pleural effusion. 3. Atelectasis or pneumonia the left lung base. 4. Followup studies would be important to see that the lungs clear. 5. Moderate cardiomegaly. - Vascular US 07/27: These findings indicate less than 50% narrowing bilaterally. There is no significant stenosis on the right or the left. There is antegrade flow in the vertebral arteries bilaterally. - MRI Brain 07/28: No evidence of restricted diffusion to suggest an acute infarct. Moderate small vessel ischemic changes. Gliosis in left frontal, left periventricular, and left inferior temporal lobes likely representing old infarcts. Moderate fluid in left mastoid air cells. Trace fluid in right mastoid air cells. Assessment and plan: Syncope - possibly 2/2 seizure activity, possibly 2/2 TIA - No focal neurologic deficits noted - MRI negative for acute infarction - Carotid US without any significant stenosis - EEG pending; will be completed today - c/w Telemetry monitoring Imaging consistent with pneumonia; history of pseudomonas - Patient reports a mild cough, has noted clear sputum production, denies any significant SOB - Remains afebrile, hemodynamically stable - No lactic acidosis; s/p Leukocytosis - Imaging consistent with possible pneumonia - Will start Cefdinir / Azithromycin, Will DC Cefepime and Azithromycin Bilateral LE PVD - c/w Plavix and Rosuvastatin ESRD on HD (MWF) - Nephrology on consultation HTN - BP well controlled - c/w Carvedilol IDDM2 with Neuropathy - c/w ISS CAD s/p CABG - c/w Plavix and Rosuvastatin Diastolic and Systolic CHF (EF: 40%) - No evidence of fluid overload - c/w Dialysis as scheduled Hx of CVA - With history of left and right side residual paresis - c/w Plavix and Rosuvastatin Chronic LE diabetic foot ulcer - Follows with Dr. Blue as an outpatient - c/w wound care GI prophylaxis - c/w Protonix DVT prophylaxis - c/w Heparin Disposition: - Awaiting results of EEG - Anticipate discharge within 24 hours Bin CUEVAS, I+O VSBin, I+O Laboratory Tests 07/30/18 05:44 Red Blood Count 2.66 L, Mean Corpuscular Volume 100.4 H, Mean Corpuscular Hemoglobin 31.6, Mean Corpuscular Hemoglobin Concent 31.5 L, Red Cell Distribution Width 15.0 H, Neutrophils (%) (Auto) 66.2 H, Lymphocytes (%) (Auto) 20.1 L, Monocytes (%) (Auto) 8.6 H, Eosinophils (%) (Auto) 4.1 H, Basophils (%) (Auto) 0.8, Neutrophils # (Auto) 3.4, Lymphocytes # (Auto) 1.0 L, Monocytes # (Auto) 0.4, Eosinophils # (Auto) 0.2, Basophils # (Auto) 0.0, Calcium Level 9.0 Vital Signs Date Time Temp Pulse Resp B/P (MAP) Pulse Ox O2 Delivery O2 Flow Rate FiO2 07/30/18 06:34 79 148/75 07/30/18 06:00 97.7 20 94 07/27/18 19:12 Nasal Cannula 2.0 I&O- Last 24 Hours up to 6 AM 07/30/18 06:00 Intake Total 1040 ml Output Total 0 ml Balance 1040 ml GAYLA EDWARD MD Jul 30, 2018 10:34
[2018-07-30] MEDS ORDERED: HEPARIN 1,000 UNITS/ML 10ML VIAL (FOR RADIOLOGY& DIALYSIS ONLY) IV ONE (11:30)
[2018-07-30 14:00] VITALS: BP 145/83
[2018-07-30] MEDS: AZITHROMYCIN 250 MG TAB PO SCH (15:10)
[2018-07-30] MEDS ORDERED: CEFDINIR 300 MG CAP (OMNICEF) PO SCH (17:00)
[2018-07-30] MEDS: ROSUVASTATIN 10 MG TAB (CRESTOR) PO SCH (21:01)
[2018-07-30 22:00] VITALS: BP 148/65
[2018-07-31 06:00] VITALS: BP 148/73
[2018-07-31 06:08] LABS: BASO % 0.6 % (0.0-1.0); EOS # 0.2 10^3/uL (0.0-0.50); EOS % 3.4 % (0.0-3.0); HEMATOCRIT 26.8 % (42.0-52.0); HEMOGLOBIN 8.4 g/dl (13.5-17.5); LYMPH % 20.7 % (24.0-44.0); MEAN CORPUSCULAR HEMOGLOBIN 31.2 pg (27.0-33.0); MEAN CORPUSCULAR HGB CONC 31.3 g/dl (32.0-36.5); MEAN CORPUSCULAR VOLUME 99.6 fl (80.0-96.0); MONO # 0.5 10^3/uL (0.0-0.8); MONO % 10.5 % (0.0-5.0); NEUTROPHILS # 3.2 10^3/uL (1.8-7.7); NEUTROPHILS % 64.2 % (36.0-66.0); RED BLOOD COUNT 2.69 10^6/uL (4.30-6.10); WHITE BLOOD COUNT 4.9 10^3/uL (4.0-10.0)
--- NOTE | 2018-07-31 06:14 | IPN ---
DATE OF SERVICE: 07/30/2018 SUBJECTIVE: Ayaan is seen and examined this morning in the hemodialysis unit receiving his maintenance treatment. He denies any acute overnight events or issues. He is for electroencephalogram (EEG) later today. Goal dialysis removal is 2500. intake yesterday is 940, weight in the bed scale today is 83.3 kg. PHYSICAL EXAMINATION: General: The patient is seen in the hemodialysis unit receiving his maintenance treatment awake, alert, oriented, comfortable in no acute distress. is present at the bedside. HEENT: Extraocular muscles are intact. Tongue is moist. Neck: Neck is supple. Jugular veins are not distended. Cardiac: S1. S2, regular rate and rhythm. Lungs: Lungs are clear to auscultation bilaterally. No crackles, rale or rhonchus. Abdomen: Soft and nontender. There are bowel sounds. Extremities: The lower extremities are negative for any edema. The left upper extremity fistula is patent and currently in use. Neurologic: The patient is awake, alert and oriented times three, at baseline mentation. There is chronic expressive aphasia. LABORATORY DATA: White count 5.1, hemoglobin 8.4, sodium 137, potassium 4.4, ferritin 1300. INPATIENT MEDICATIONS: Reviewed by myself. - intravenous (IV) azithromycin and IV Cefepime were stopped per the primary team - he is now on oral azithromycin and oral Cefdinir His remainder of medications are unchanged from prior. PROBLEMS: 1. End-stage renal disease on hemodialysis on Monday, Monday, Monday schedule. The patient is dialyzed today 2500 mL of fluid is removed. He is tolerating his dialysis treatments without issue and his electrolytes and volume status are acceptable. 2. Anemia related to go end-stage renal disease and iron deficiency. Hemoglobin is stable but suboptimal at 8.4. The patient continues on Aranesp. There is no urgent need for transfusion at present. 3. Syncope versus seizure versus a possible transient ischemic attack (TIA). The patient is pending electroencephalogram (EEG) today. His MRI did not show any acute findings. He has not had any recurrent episodes. His prolactin level was elevated but it is generally elevated and the dialysis patient population. 4. Hypertension. Blood pressures are acceptable. No changes are being made to his current regimen. 5. Systolic congestive heart failure. No exacerbation at present. Volume status is well compensated. He is tolerating fluid removal with dialysis and continues on moderate fluid restriction.
[2018-07-31 06:28] LABS: CALCIUM LEVEL 8.9 MG/DL (8.8-10.2); CREATININE FOR GFR 5.13 MG/DL (0.70-1.30); MAGNESIUM LEVEL 2.1 MG/DL (1.8-2.4); POTASSIUM SERUM 4.3 MEQ/L (3.5-5.1)
[2018-07-31 07:08] LABS: PLATELET COUNT, AUTOMATED 83 10^3/uL (150-450)
[2018-07-31] MEDS: HumaLOG INSULIN (NovoLOG) PER UNIT SC SCH (07:28)
[2018-07-31] MEDS: ADVAIR HFA 230/21MCG INHALER INH SCH (07:36)
[2018-07-31 08:24] VITALS: BP 152/70
[2018-07-31] MEDS: CLOPIDOGREL 75 MG TAB PO SCH (08:24)
[2018-07-31] MEDS: AZITHROMYCIN 250 MG TAB PO SCH (08:24)
[2018-07-31] MEDS: CARVedilol 12.5 MG TAB PO SCH (08:24)
[2018-07-31] MEDS: CETIRIZINE (ZyrTEC) 10 MG TAB PO SCH (08:24)
[2018-07-31] MEDS: PANTOPRAZOLE 40MG TAB (PROTONIX) PO SCH (08:24)
[2018-07-31] MEDS: NEPHRO-VIT TAB (NEPHROCAPS) PO SCH (08:24)
[2018-07-31] MEDS: (RENVELA) SEVELAMER **CARBONate** 800 MG TAB PO SCH (08:24)
[2018-07-31] MEDS: GABAPENTIN 100 MG CAP PO SCH (08:25)
[2018-07-31] MEDS: HEPARIN SOD (PORCINE) 5000 UNITS/ML VIAL SC SCH (08:25)
--- NOTE | 2018-07-31 08:35 | EEG ---
DATE OF PROCEDURE: 07/30/2018 DIAGNOSIS: Seizure. EGD NUMBER: [id number] HISTORY: The patient is a 68-year-old male with a history of end-stage renal disease, diabetes, peripheral neuropathy, history of strokes, peripheral arterial disease. Who has an episode of passing out during dialysis. His eyes rolled up and he passed out and he had bowel incontinence. He was confused 1 hour after the episode. This EEG was done to rule out epileptic potential. He is currently taking Cefepime, Zithromax, carvedilol, cetirizine, Plavix, gabapentin, Crestor, Cefdinir. TECHNICAL DESCRIPTION: This digital EEG was recorded by 21 scalp ear and two EKG electrodes and was reviewed in bipolar and referential montages following reformatting in 10-20 international electrode placement system. INTERPRETATION: The patient was noted to be in awake and drowsy states during this EEG. Resting rhythm consisted of 3-4 Hz delta activity measuring 15 - 60 microvolts in amplitude which was symmetric bilaterally. Frontal intermittent rhythmic delta activity / FIRDA was noted bilaterally. No sleep was achieved. Hyperventilation could not be performed. Photic stimulation remained unremarkable. No focal, lateralizing or epileptiform abnormalities were seen. No clinical or electrographic seizures were recorded. EEG in awake and drowsy states is abnormal due to some generalized slowing and disorganization of background with bilateral frontal intermittent rhythmic delta activity/FIRDA consistent with nonspecific diffuse cerebral dysfunction such as seen in encephalopathy due to poor effort on the toxic, metabolic, medication related, infectious, auto-immune, multifocal structural brain abnormalities. Clinical correlation is recommended. MTDD
[2018-07-31] MEDS ORDERED: AZIT-12 PO (09:52)
[2018-07-31] MEDS ORDERED: CEFD300CAP PO (09:52)
--- NOTE | 2018-07-31 10:34 | DS.PDOC ---
Discharge Summary General Date of Admission Jul 27, 2018 at 20:19 Date of Discharge 07/31/2018 Discharge Summary PROCEDURES PERFORMED DURING STAY: [None]. ADMITTING DIAGNOSES / DISCHARGE DIAGNOSES: Syncope - possibly 2/2 seizure activity, possibly 2/2 TIA Imaging consistent with pneumonia; history of pseudomonas Bilateral LE PVD ESRD on HD ([facility]) HTN IDDM2 with Neuropathy CAD s/p CABG Diastolic and Systolic CHF (EF: 40%) Hx of CVA Chronic LE diabetic foot ulcer GI prophylaxis DVT prophylaxis COMPLICATIONS/CHIEF COMPLAINT: Syncope HISTORY OF PRESENT ILLNESS: Patient is a 68-year-old male with a PMHx of ESRD on HD (), IDDM2, Peripheral neuropathy, CAD s/p CABG (2017), Hx of multiple strokes affecting both the left and right sides with residual paresis, foot drops left > right, DLP, Diastolic and Systolic CHF (EF: 40%), BPH, ischemic ulcers of the left lower extremity, chronic diabetic foot ulcer on the left lateral aspect of foot, PVD with multiple interventions (Stents of left leg and being worked up for intervention on the right leg) who had presented to the ED from HD after he had passed out. Patient had reported stool incontinence was also significantly confused for 1 hour after the episode. Patient was admitted to hospitalist service for further evaluation and treatment. HOSPITAL COURSE: Syncope - possibly 2/2 seizure activity, possibly 2/2 TIA - No focal neurologic deficits noted - MRI negative for acute infarction - Carotid US without any significant stenosis - EEG negative for any signs of seizure activity - c/w Telemetry monitoring - Will have outpatient follow up with Neurology Imaging consistent with pneumonia; history of pseudomonas - Patient reports a mild cough, has noted clear sputum production, denies any significant SOB - Remains afebrile, hemodynamically stable - No lactic acidosis; s/p Leukocytosis - Imaging consistent with possible pneumonia - c/w Cefdinir / Azithromycin on discharge for completion of antibiotic course, Will DC Cefepime and Azithromycin Bilateral LE PVD - c/w Plavix and Rosuvastatin ESRD on HD ([facility]) - Nephrology on consultation HTN - BP well controlled - c/w Carvedilol IDDM2 with Neuropathy - c/w ISS CAD s/p CABG - c/w Plavix and Rosuvastatin Diastolic and Systolic CHF (EF: 40%) - No evidence of fluid overload - c/w Dialysis as scheduled Hx of CVA - With history of left and right side residual paresis - c/w Plavix and Rosuvastatin Chronic LE diabetic foot ulcer - Follows with Dr. Blue as an outpatient - c/w wound care GI prophylaxis - c/w Protonix DVT prophylaxis - c/w Heparin DISCHARGE MEDICATIONS: Please see below. ALLERGIES: ] Please see below. PHYSICAL EXAMINATION ON DISCHARGE: Vitals (See below) General: Lying in bed, no acute distress, comfortable, AAOx3 HEENT: NC, AT CVS: +S1S2 Lungs: Auscultation is without rhonchi, rales or wheezing and air entry is fair bilaterally Abdomen: Remains soft without distention or tenderness Extremities: Lower extremities are free of any edema, - Calf tenderness LABORATORY DATA: Please see below. IMAGING: - CT head 07/27: Old bilateral lacunar infarcts in the basal ganglia. No new infarct is seen. Diffuse atrophy and vascular calcification. No evidence of hemorrhage or mass. - CXR 07/27: 1. Bibasilar opacities suspicious for pneumonia and representing a change from the prior exam. 2 .Global cardiomegaly. - Chest CT 07/27: 1. Moderate right pleural effusion with loculation of fluid in the right major fissure. 2. Moderate left pleural effusion. 3. Atelectasis or pneumonia the left lung base. 4. Followup studies would be important to see that the lungs clear. 5. Moderate cardiomegaly. - Vascular US 07/27: These findings indicate less than 50% narrowing bilaterally. There is no significant stenosis on the right or the left. There is antegrade flow in the vertebral arteries bilaterally. - MRI Brain 07/28: No evidence of restricted diffusion to suggest an acute infarct. Moderate small vessel ischemic changes. Gliosis in left frontal, left periventricular, and left inferior temporal lobes likely representing old infarcts. Moderate fluid in left mastoid air cells. Trace fluid in right mastoid air cells. ACTIVITY: [As tolerated]. DISCHARGE PLAN: Follow up with Dr. Larose and Neurology within 7 days Remain compliant with treatment plan and medications Return to the ER if you experience any problems DISPOSITION: Home DISCHARGE CONDITION: [Stable]. TIME SPENT ON DISCHARGE: 35 minutes Vital Signs/I&Os Vital Signs Date Time Temp Pulse Resp B/P (MAP) Pulse Ox O2 Delivery O2 Flow Rate FiO2 07/31/18 08:24 87 152/70 07/31/18 06:00 98.2 20 93 07/27/18 19:12 Nasal Cannula 2.0 I&O- Last 24 Hours up to 6 AM 07/31/18 06:00 Intake Total 810 ml Output Total 2500 ml Balance -1690 ml Laboratory Data Labs 24H Laboratory Tests 2 07/30/18 17:07: Bedside Glucose (Misc Panel) 166H 07/30/18 20:33: Bedside Glucose (Misc Panel) 136H 07/31/18 05:36: Immature Granulocyte % (Auto) 0.6, White Blood Count 4.9, Red Blood Count 2.69L, Hemoglobin 8.4L, Hematocrit 26.8L, Mean Corpuscular Volume 99.6H, Mean Corpuscular Hemoglobin 31.2, Mean Corpuscular Hemoglobin Concent 31.3L, Red Cell Distribution Width 15.0H, Platelet Count 83L, Neutrophils (%) (Auto) 64.2, Lymphocytes (%) (Auto) 20.7L, Monocytes (%) (Auto) 10.5H, Eosinophils (%) (Auto) 3.4H, Basophils (%) (Auto) 0.6, Neutrophils # (Auto) 3.2, Lymphocytes # (Auto) 1.0L, Monocytes # (Auto) 0.5, Eosinophils # (Auto) 0.2, Basophils # (Auto) 0.0, Nucleated Red Blood Cells % (auto) 0.0, Immature Platelet Fraction 3.4, Anion Gap 8, Glomerular Filtration Rate 12.0L, Blood Urea Nitrogen 27H, Creatinine 5.13H, Sodium Level 138, Potassium Level 4.3, Chloride Level 102, Carbon Dioxide Level 28, Calcium Level 8.9, Magnesium Level 2.1 CBC/BMP Laboratory Tests 07/31/18 05:36 Red Blood Count 2.69 L, Mean Corpuscular Volume 99.6 H, Mean Corpuscular Hemoglobin 31.2, Mean Corpuscular Hemoglobin Concent 31.3 L, Red Cell Distrib ution Width 15.0 H, Neutrophils (%) (Auto) 64.2, Lymphocytes (%) (Auto) 20.7 L, Monocytes (%) (Auto) 10.5 H, Eosinophils (%) (Auto) 3.4 H, Basophils (%) (Auto) 0.6, Neutrophils # (Auto) 3.2, Lymphocytes # (Auto) 1.0 L, Monocytes # (Auto) 0.5, Eosinophils # (Auto) 0.2, Basophils # (Auto) 0.0, Calcium Level 8.9 FSBS Laboratory Tests Test 07/30/18 17:07 07/30/18 20:33 Range/Units Bedside Glucose (Misc Panel) 166 136 80-115 MG/DL Microbiology Microbiology 07/27/18 Blood Culture - Preliminary, Resulted No Growth after 72 hours. All specime... 07/27/18 Blood Culture - Preliminary, Resulted No Growth after 72 hours. All specime... 07/28/18 Respiratory Virus Panel (PCR) ([facility]) - Final, Complete Discharge Medications Scheduled Amlodipine Besylate (Amlodipine Besylate) 2.5 Mg Tablet, 2.5 MG PO QHS, (Reported) Azithromycin (Azithromycin) 250 Mg Tablet, 250 MG PO DAILY Calcitriol (Calcitriol) 0.25 Mcg Cap, 0.25 MCG PO 3XW, (Reported) RECEIVES AT DIALYSIS ON MON, MON, MON Calcium Carbonate (Tums Ultra) 1,000 Mg Chw, 1,000 MG PO WM, (Reported) Carvedilol (Carvedilol) 12.5 Mg Tablet, 12.5 MG PO BID, (Reported) Cefdinir (Cefdinir) 300 Mg Capsule, 300 MG PO Q48H Start on 08/01/18 morning Cetirizine HCl (Cetirizine HCl) 10 Mg Tablet, 10 MG PO DAILY, (Reported) Clopidogrel Bisulfate (Clopidogrel) 75 Mg Tab, 75 MG PO DAILY, (Reported) Ergocalciferol (Vitamin D2) (Vitamin D2) 50,000 Unit Cap, 50,000 UNIT PO 1XWK, (Reported) TAKES ON WEDNESDAYS Fluticasone Propion/Salmeterol (Advair Hfa 230-21 Mcg Inhaler) 12 Gm Hfa.aer.ad, 2 PUFF INH BID, (Reported) Folic Acid/Vit B Complex and C (Radha-Haja Tablet) 1 Tab Tab, 1 TAB PO DAILY, (Re ported) Gabapentin (Neurontin) 100 Mg Capsule, 100 MG PO BID, (Reported) Insulin Human NPH (Humulin N) 100 Unit/1 Ml Vial, 1 DOSE SC DAILY, (Reported) SLIDING SCALE; REPORTED USUALLY BETWEEN 2 AND 4 UNITS Pantoprazole Sodium (Protonix) 40 Mg Tab, 40 MG PO DAILY, (Reported) Rosuvastatin Calcium (Rosuvastatin Calcium) 10 Mg Tablet, 10 MG PO QHS, (Reported) Sevelamer Carbonate (Renvela) 800 Mg Tab, 1,600 MG PO WM, (Reported) Scheduled PRN Acetaminophen (Acetaminophen) 500 Mg Tablet, 1,000 MG PO QID PRN for PAIN, (Reported) Albuterol Sulfate (Proair Hfa) 8.5 Gm Hfa.aer.ad, 2 PUFF INH Q4H PRN for SOB/WHEEZING, (Reported) Allergies Coded Allergies: aspirin (Verified Allergy, Severe, CLOSES AIRWAY, 06/15/18) GAYLA EDWARD MD Jul 31, 2018 10:34
--- NOTE | 2018-07-31 14:23 | IPN ---
DATE: 07/31/2018 SUBJECTIVE: Ayaan is seen and examined this morning on bedside rounds. He is in his street clothes and is getting ready to be discharged from the hospital. He states that he feels well. He plans to attend his normal scheduled outpatient dialysis chair tomorrow. He was dialyzed inpatient yesterday. He did have an electroencephalogram (EEG) performed in house that did show generalized swelling and disorganization in the bilateral frontal cerebral hemisphere, likely secondary to his past ischemic events. Otherwise, essentially unremarkable. During dialysis yesterday, he did have removal of 2500 mL of fluid. His intake, according to documentation, over the past 24 hours has been 860 mL. Weight on the bed scale this morning is 80.8 kg. PHYSICAL EXAMINATION: GENERAL: The patient is seen on bedside rounds this morning. He is lying in bed and has his street clothes on. He is comfortable and speaking in complete and full sentences. No acute distress. HEENT: Extraocular muscles intact. Moist mucous membranes. No jugular venous distention (JVD) appreciated. CARDIAC: Normal S1, S2. I can appreciate at least +2 systolic murmur. No other murmurs are appreciated. RESPIRATORY: Lungs are clear to auscultation bilaterally. I cannot hear any crackles, wheezing or rales. ABDOMEN: Soft and nontender to palpation. Normoactive bowel sounds times four. No hepatosplenomegaly or masses appreciated. No rebound, rigidity or guarding. There is no distention. EXTREMITIES: Lower extremities do not demonstrate any edema, cyanosis or mottling. He does have a left upper extremity fistula that is patent with a good murmur and thrill. NEUROLOGIC: The patient is awake, alert and oriented times three. No focal deficits appreciated. He does have chronic expressive aphasia. LABORATORY DATA: Sodium 138, potassium 4.3, chloride 102, bicarbonate 28, BUN and creatinine 27 and 5.13, respectively. PROBLEMS: 1. End stage renal disease on hemodialysis normally scheduled on Monday, Monday and Monday schedule. The patient was dialyzed 2500 mL of fluid yesterday during inpatient dialysis. He is being discharged home today. He will followup tomorrow with his normal outpatient dialysis chair. We have contacted the dialysis nurse to discuss fluid removal goals in outpatient dialysis and strict monitoring of his blood pressure every 15 minutes during dialysis. His electrolytes and volume status on physical examination today are acceptable. 2. Anemia. This is likely related to end stage renal disease and iron deficiency. Hemoglobin and hematocrit are noted to be stable, but of course suboptimal at 8.4 and 26.8. He does continue on Aranesp. He does not need a transfusion right now. 3. Syncope versus seizure versus probable transient ischemic attack. Electroencephalogram (EEG) has been performed on the patient and was discussed above. MRI did not show any acute findings this visit. He has not had any recurrent episodes while being hospitalized. He has been afebrile. WBC had been 11 on 07/27/2018 but it has since normalized. Procalcitonin is elevated, but this is to expected in dialysis patients. I do not suspect infectious etiology. 4. Hypertension. Blood pressures are acceptable. We have no changes to make. 5. Heart failure with preserved ejection fraction. No exacerbation presently. He did tolerate fluid removal during dialysis. We will monitor his blood pressure strictly when he continues dialysis as an outpatient. He should continue on moderate fluid restriction. His volume status is well compensated at the present time.
== END 2018-07-31 11:33 | disposition home or self-care (01) | DRG 193 ==
LOC: M ED 14:38 → M ED INP 20:19 → M MSPAV 22:29
PROVIDERS: ADMIT Internal Medicine Nephrology; ATTEND Internal Medicine
DX: J18.9 Pneumonia, unspecified organism (principal); N18.6 End stage renal disease; I50.42 Chronic combined systolic (congestive) and diastolic (congestive) heart failure; G45.9 Transient cerebral ischemic attack, unspecified; I69.351 Hemiplegia and hemiparesis following cerebral infarction affecting right dominant side; I69.354 Hemiplegia and hemiparesis following cerebral infarction affecting left non-dominant side; N25.81 Secondary hyperparathyroidism of renal origin; R55 Syncope and collapse; E11.621 Type 2 diabetes mellitus with foot ulcer; I25.10 Atherosclerotic heart disease of native coronary artery without angina pectoris; Z95.1 Presence of aortocoronary bypass graft; E11.51 Type 2 diabetes mellitus with diabetic peripheral angiopathy without gangrene; E11.40 Type 2 diabetes mellitus with diabetic neuropathy, unspecified; L97.529 Non-pressure chronic ulcer of other part of left foot with unspecified severity; R56.9 Unspecified convulsions; Z79.899 Other long term (current) drug therapy; Z79.4 Long term (current) use of insulin; Z88.6 Allergy status to analgesic agent; I69.322 Dysarthria following cerebral infarction; D63.1 Anemia in chronic kidney disease

== ENCOUNTER 2018-08-13 06:43 | Inpatient (IN) | payer MEDICARE, OTHER ==
[2018-08-13] VITALS (20 sets, daily range): BP systolic 107–188; BP diastolic 53–101; O2SAT 100
[~2018-08-13] VITALS: Ht 172.7 cm; Wt 80.5 kg
[~2018-08-13 06:43] MED LIST changes: +ADVAIR INH; -ALBU17IN2 INH; -ALL10TAB28 PO; +ALL10TAB29 PO; +AZIT-12 PO; +CEFD300CAP PO; +PROV108A INH; -ROSU10TA5 PO; +ROSU10TA6 PO; +SENN-53 PO; -SENN1TAB40 PO
[2018-08-13] MEDS ORDERED: BUPIVACAINE HCL 0.5% 10 ML VIAL As Ordered ONE (07:07)
[2018-08-13] MEDS ORDERED: fentaNYL 100 MCG/2 ML INJECTION (J3010) As Ordered ONE (07:07)
[2018-08-13] MEDS ORDERED: diphenhydrAMINE INJ 50MG/ML VIAL (J1200) As Ordered ONE (07:07)
[2018-08-13] MEDS ORDERED: MIDAZOLAM INJ 2 MG/2 ML VIAL (J2250) As Ordered ONE (07:07)
[2018-08-13] MEDS ORDERED: ISOVUE-300 61% 50ML VIAL (Q9967) As Ordered ONE (07:08)
[2018-08-13] MEDS ORDERED: LIDOCAINE 2% MDV 20 ML VIAL As Ordered ONE (07:08)
[2018-08-13] MEDS ORDERED: HEPARIN 1,000 UNITS/ML 10ML VIAL (FOR RADIOLOGY& DIALYSIS ONLY) As Ordered ONE (07:08)
[2018-08-13] MEDS ORDERED: PROTAMINE SULF INJ 50 MG/5 ML VIAL (J2720) As Ordered ONE (08:54)
[2018-08-13] MEDS ORDERED: flumazeniL 0.5 MG/5 ML VIAL As Ordered ONE (09:14)
[2018-08-13] MEDS ORDERED: NALOXONE INJ 0.4 MG/1 ML VIAL (J2310) As Ordered ONE (09:14)
[2018-08-13] MEDS ORDERED: GLUCAGON FOR INJ 1 MG VIAL (J1610) SC PRN (09:30)
[2018-08-13] MEDS ORDERED: GLUCOSE 4 GM CHEW TABLET PO PRN (09:30)
[2018-08-13] MEDS ORDERED: RACEPINEPHrine 2.25 % UD INHA As Ordered ONE (09:30)
[2018-08-13] MEDS ORDERED: DEXTROSE 50% 50 ML SYRINGE IV PRN (09:30)
[2018-08-13 09:59] LABS: HEMATOCRIT 33.8 % (42.0-52.0); HEMOGLOBIN 10.5 g/dl (13.5-17.5); MEAN CORPUSCULAR HGB CONC 31.1 g/dl (32.0-36.5); PLATELET COUNT, AUTOMATED 125 10^3/uL (150-450); RED BLOOD COUNT 3.28 10^6/uL (4.30-6.10); WHITE BLOOD COUNT 6.4 10^3/uL (4.0-10.0)
--- NOTE | 2018-08-13 10:01 | REP ---
PORTABLE CHEST: AP portable view of the chest is performed and compared to prior study of 07/27/2018. There cardiomegaly with vascular congestion. There appears to be mild interstitial edema. There are small bilateral effusions. Findings appear improved compared to the prior study. Mediastinal silhouette is unchanged. Multiple sternal wires are present. Electronically Signed by Ramesh Sanchez MD 08/14/2018 09:41 A
[2018-08-13 10:12] LABS: INR 1.3; PROTHROMBIN TIME 15.9 SECONDS (11.8-14.0)
--- NOTE | 2018-08-13 10:12 | REP ---
CT BRAIN WITHOUT CONTRAST: HISTORY: Rule out CVA versus bleed. Comparison brain MRI study July 28, 2018. Comparison brain CT study July 27, 2018. CT FINDINGS: Digital case sealer radiograph demonstrates an oral pharyngeal airway tube. On bone window settings, there is no bony calvarial defect. Heavy vascular calcification is seen in the distal vertebral and distal carotid arteries as before. There is diffuse moderate cerebral atrophy. There is an old lacunar infarct in the left basal ganglia. Another old lacunar infarct is noted more inferiorly and laterally in the right basal ganglia. This is also unchanged. There are small vessel atherosclerotic changes noted in the periventricular white matter bilaterally. These findings are unchanged. There is no evidence of intracranial hemorrhage or acute infarction seen. No mass or extra-axial fluid collection is seen. IMPRESSION: Heavy vascular calcification. Diffuse cerebral atrophy. Small vessel changes. Old bilateral lacunar infarcts in the basal ganglia. No acute intracranial abnormality. Electronically Signed by Mani Medina MD 08/13/2018 11:57 A
[2018-08-13 10:13] LABS: PARTIAL THROMBOPLASTIN TIME 38.8 SECONDS (25.0-38.4)
[2018-08-13 10:21] LABS: ANISOCYTOSIS 1+; ATYPICAL LYMPH 1 % (0-5); EOSINOPHILS 1 % (0-5); LYMPHOCYTES 26 % (16-52); METAMYELOCYTES 1 % (0-0); NEUTROPHILS 67 % (35-75); PLATELET ESTIMATE DECREASED (NORMAL)
[2018-08-13 10:28] LABS: ABG BASE EXCESS 2.9 (-2.0-2.0); ABG HCO3 27.1 MEQ/L (22.0-26.0); ABG O2 LITER FLOW 100; ABG O2 SATURATION 99.6 % (95.0-99.0); ABG PARTIAL PRESSURE CO2 40.1 mmHg (35.0-45.0); ABG PARTIAL PRESSURE O2 261.9 mmHg (75.0-100.0); ABG STANDARD HCO3 27.1 MEQ/L (22.0-26.0); ABG TOTAL CO2 28.4 MEQ/L (23.0-31.0); ABG pH (ARTERIAL) 7.448 UNITS (7.350-7.450)
[2018-08-13] MEDS ORDERED: NS 1,000 ML IV SCH (10:30)
[2018-08-13 10:33] LABS: ALBUMIN 3.1 GM/DL (3.2-5.2); BILIRUBIN,TOTAL 0.6 MG/DL (0.2-1.0); CALCIUM LEVEL 8.7 MG/DL (8.8-10.2); CREATININE FOR GFR 7.76 MG/DL (0.70-1.30); GLOMERULAR FILTRATION RATE 7.4 (>49); POTASSIUM SERUM 4.5 MEQ/L (3.5-5.1); TOTAL PROTEIN 7.5 GM/DL (6.4-8.2)
[2018-08-13 10:37] LABS: CK-MB VALUE MASS 1.1 NG/ML (<3.6); MB/CK RELATIVE INDEX 2.34 (< OR =4); TROPONIN I 0.03 NG/ML (< 0.10)
[2018-08-13] MEDS ORDERED: levETIRAcetam INJection 750 MG in D5W 100 ML IV SCH (11:00)
[2018-08-13] MEDS ORDERED: levETIRAcetam INJection 1,000 MG in D5W 100 ML IV ONE (11:00)
--- NOTE | 2018-08-13 12:21 | HPEPDOC ---
General Date of Admission Aug 13, 2018 at 09:25 Date of Service: Aug 13, 2018 Chief Complaint The patient is a 68-year-old male who experienced an Episode and went into cardiac arrest during an outpatient angiography procedure. History of Present Illness Patient is a 68-year-old male with a PMHx of ESRD on HD (MWF), IDDM2, Peripheral neuropathy, CAD s/p CABG (2017), Hx of multiple strokes affecting both the left and right sides with residual paresis, foot drop (Left > Right), DLP, Diastolic and Systolic CHF (EF: 40%), BPH, ischemic ulcers of the left lower extremity, chronic diabetic foot ulcer on the left lateral aspect of foot, PVD with multiple interventions (s/p stent of Left leg). Patient was receiving angiography of his right leg with stenting with Dr. Blank when after the procedure he became apneic. Patient had become nonresponsive and a max cart called. Patient was found to be hypoxic to his low at 74 and then slowly bradycardia down to a pulseless rhythm. Patient immediately received chest compressions and a bag valve mask was applied for ventilation. Patient did not receive any epinephrine nor did he receive any defibrillations. Patient saturation had improved to greater than 95% and had a return of spontaneous breathing and his rhythm had returned to normal sinus. Patient was able to breathe on his own and did not require any inpatient blood pressure had remained stable with systolic of 150-170. Patient did appear to have tonic like activity of his left upper extremity. Patient again is unable to communicate does respond to pain. Unable to follow c ommands. Hospitalist service was involved during the code and patient has been placed on their service for further evaluation/treatment. Neurology was called on consultation. Home Medications Scheduled Amlodipine Besylate (Amlodipine Besylate) 2.5 Mg Tablet, 2.5 MG PO QHS, (Reported) Calcitriol (Calcitriol) 0.25 Mcg Cap, 0.25 MCG PO 3XW, (Reported) RECEIVES AT DIALYSIS ON MON, WED, FRI Calcium Carbonate (Tums Ultra) 1,000 Mg Chw, 1,000 MG PO WM, (Reported) Carvedilol (Carvedilol) 12.5 Mg Tablet, 12.5 MG PO BID, (Reported) Cetirizine HCl (Cetirizine HCl) 10 Mg Tablet, 10 MG PO DAILY, (Reported) Clopidogrel Bisulfate (Clopidogrel) 75 Mg Tab, 75 MG PO DAILY, (Reported) Ergocalciferol (Vitamin D2) (Vitamin D2) 50,000 Unit Cap, 50,000 UNIT PO 1XWK, (Reported) TAKES ON WEDNESDAYS Fluticasone Propion/Salmeterol (Advair Hfa 230-21 Mcg Inhaler) 12 Gm Hfa.aer.ad, 2 PUFF INH BID, (Reported) Folic Acid/Vit B Complex and C (Radha-Haja Tablet) 1 Tab Tab, 1 TAB PO DAILY, (Reported) Gabapentin (Neurontin) 100 Mg Capsule, 100 MG PO BID, (Reported) Insulin Human NPH (Humulin N) 100 Unit/1 Ml Vial, 1 DOSE SC DAILY, (Reported) SLIDING SCALE; REPORTED USUALLY BETWEEN 2 AND 4 UNITS Pantoprazole Sodium (Protonix) 40 Mg Tab, 40 MG PO DAILY, (Reported) Rosuvastatin Calcium (Rosuvastatin Calcium) 10 Mg Tablet, 10 MG PO QHS, (Reported) Sevelamer Carbonate (Renvela) 800 Mg Tab, 1,600 MG PO WM, (Reported) Scheduled PRN Acetaminophen (Acetaminophen) 500 Mg Tablet, 1,000 MG PO QID PRN for PAIN, (Reported) Albuterol Sulfate (Proair Hfa) 8.5 Gm Hfa.aer.ad, 2 PUFF INH Q4H PRN for SOB/WHEEZING, (Reported) Allergies Coded Allergies: aspirin (Verified Allergy, Severe, CLOSES AIRWAY, 06/15/18) Past Medical History Medical History ESRD on HD (MWF), IDDM2, Peripheral neuropathy, CAD s/p CABG (2017), Hx of multiple strokes affecting both the left and right sides with residual paresis, foot drop (Left > Right), DLP, Diastolic and Systolic CHF (EF: 40%), BPH, ischemic ulcers of the left lower extremity, chronic diabetic foot ulcer on the left lateral aspect of foot, PVD with multiple interventions (s/p stent of Left leg) Surgical History Unable to obtained from patient at this time, based on prior records 1 VESSEL CABG 07/04/17 LEFT LEG ANGIOGRAM W/ BALLOONING 11/09/17 LEFT LOWER EXTREMITY ANGIOGRAM 04/19/18 LEFT LE ANGIOGRAM W/ STENT AND BALLOONING 05/03/18 in Left popliteal and SFA RIGHT ANGIOGRAM 05/28/18 LEFT ANGIOGRAM W/ BALLONING 05/29/18 LEFT 5TH TOE AMPUTATION AND WOUND DEBRIDEMENT 06/20/2018 Status post thrombectomy in left leg arteries in may 2018 H/O recurrent pleural effusion with 3 thoracocentesis in 2017 s/p pleurex catheter RIGHT PLEURAX CATH 08/20/17, RIGHT PLEURAX CATH REMOVED 12/27/17 APPENDECTOMY 1996 LAP- CHUY 2005 PERITONEAL DIALYSIS CATHETER PLACED 10/29/10 PROSTATE BIOPSIES 10/06/11 FISTULA INSERTION 07/02/13, NEW FISTULA RIGHT UPPER ARM 08/02/16 LASER SURGERY FOR DIABETIC RETINOPATHY 10/2013 REMOVAL OF PERITONEAL DIALYSIS CATHETER/EXSICION OF ABSCESS 01/17/14 BILATERAL CATARACT REMOVAL 06/2016 PORT INSERTION RIGHT UPPER CHEST 06/22 Family History - Unable to obtained from patient at this time, based on prior records - Mother and father both with history of cancer Social History - Unable to obtained from patient at this time, based on prior records - Denies the use of alcohol, tobacco or illicit drugs Review of Systems Other systems Unable to obtain review of systems as patient is unable to communicate Vital Signs - Vitals: BP 178/101, HR 84, RR 20, Sat 99%NC4L, Temp 96.8F - General: Lying in bed, responding to pain - HEENT: NC, AT, PERRLA - CVS: RRR, +S1S2, - Murmurs / rubs / gallops - Lungs: Poor inspiratory effort, No appreciated wheezing / rales / rhonchi - Abdomen: Soft, Non-distended, Non-tender - Extremities: No lower extremity edema, No calf tenderness - Neuro: No focal motor or sensory deficit - Skin: No visible rashes Laboratory Data Labs 24H Laboratory Tests 2 08/13/18 09:44: Immature Granulocyte % (Auto) , Nucleated Red Blood Cells % (auto) 0.0, Neutrophils 67, Band Neutrophils 4, Lymphocytes (Manual) 26, Eosinophils (Manual) 1, Metamyelocytes 1H, Atypical Lymphocytes 1, Platelet Estimate DECREASED, Anisocytosis 1+, Macrocytosis 1+, Lactic Acid Level 2.4*H, Total Creatine Kinase 47, Creatine Kinase MB 1.1, Creatine Kinase MB Relative Index 2.34, Troponin I 0.03 08/13/18 09:45: Prothrombin Time 15.9H, Prothromb Time International Ratio 1.30, Activated Partial Thromboplast Time 38.8H, Anion Gap 10, Glomerular Filtration Rate 7.4L, Blood Urea Nitrogen 40H, Creatinine 7.76H, Sodium Level 137, Potassium Level 4.5, Chloride Level 101, Carbon Dioxide Level 26, Calcium Level 8.7L, Aspartate Amino Transf (AST/SGOT) 19, Alanine Aminotransferase (ALT/SGPT) 16, Alkaline Phosphatase 81, Total Bilirubin 0.6, Total Protein 7.5, Albumin 3.1L, Albumin/Globulin Ratio 0.70L 08/13/18 10:08: Blood Gas Bicarbonate Standard 27.1H, Arterial Blood pH 7.448, Arterial Blood Partial Pressure CO2 40.1, Arterial Blood Partial Pressure O2 261.9H, Arterial Blood Total CO2 28.4, Arterial Blood HCO3 27.1H, Arterial Blood Base Excess 2.9H, Arterial Blood Oxygen Saturation 99.6H, Arterial Blood Gas Liter Flow 100, Oxygen Delivery Device NONREBREATH CBC/BMP Laboratory Tests 08/13/18 09:44 Red Blood Count 3.28 L, Mean Corpuscular Volume 103.0 H, Mean Corpuscular H emoglobin 32.0, Mean Corpuscular Hemoglobin Concent 31.1 L, Red Cell Distribution Width 15.4 H 08/13/18 09:45 Calcium Level 8.7 L, Aspartate Amino Transf (AST/SGOT) 19, Alanine A minotransferase (ALT/SGPT) 16, Alkaline Phosphatase 81, Total Bilirubin 0.6, Total Protein 7.5, Albumin 3.1 L Plan / VTE VTE Prophylaxis Ordered?: Yes Plan Plan Acute hypoxic respiratory failure - possibly 2/2 apnea - possibly 2/2 seizure activity - Patient max cart called today; patient was apneic became hypoxic, and slow became bradycardic down to a pulseless rhythm - CXR 08/13: There cardiomegaly with vascular congestion. There appears to be mild interstitial edema. There are small bilateral effusions. Findings appear improv ed compared to the prior study. Mediastinal silhouette is unchanged. Multiple sternal wires are present. - CT head 08/13: Heavy vascular calcification. Diffuse cerebral atrophy. Small vessel changes. Old bilateral lacunar infarcts in the basal ganglia. No acute intracranial abnormality. - Discussed with Neurology; will get MRI and EEG stat; will start Keppra Elevated lactic acid - possibly 2/2 work of breathing / hypoxia - s/p IV fluids - Will follow up repeat Lactic acid ESRD on HD (MWF) - Nephrology called on consultation - Will be dialyzed tomorrow IDDM2 - c/w ISS Peripheral neuropathy - c/w Gabapentin CAD s/p CABG (2017) - c/w Rosuvastatin and Plavix Hx of multiple strokes affecting both the left and right sides with residual paresis, foot drop (Left > Right) - c/w Rosuvastatin and Plavix DLP - c/w Rosuvastatin Diastolic and Systolic CHF (EF: 40%) - Imaging with bilateral pleural effusions - Will discontinue IV fluids BPH - currently not on medications ischemic ulcers of the left lower extremity, chronic diabetic foot ulcer on the left lateral aspect of foot PVD with multiple interventions - s/p stent of Left leg GERD - c/w Protonix DVT prophylaxis - Will start Heparin Prognosis: - Guarded Code status: - DNR / DNI - Discussed with patient. CODE STATUS; Patient's HCP / has indicated that she had filled out a MOLST form May 2017 - Old form was found; and code status was profiled - Discussed prognosis with family; advised that there is a strong chance of improvement in mentation, assuming that this is postictal, however, there is a slight chance that this can be hypoxic injury in which case reversibility will be known within 24-48 hours. GAYLA EDWARD MD Aug 13, 2018 12:21
[2018-08-13] MEDS: (RENVELA) SEVELAMER **CARBONate** 800 MG TAB PO SCH ×2 (12:30→18:00)
[2018-08-13] MEDS: CALCIUM CARBONATE 500 MG CHEW U/D PO SCH ×2 (12:30→18:00)
[2018-08-13] MEDS: HumaLOG INSULIN (NovoLOG) PER UNIT SC SCH ×2 (13:12→17:43)
[2018-08-13] MEDS: HEPARIN SOD (PORCINE) 5000 UNITS/ML VIAL SQ SCH ×2 (13:12→21:41)
--- NOTE | 2018-08-13 13:21 | ECGEPIP ---
[facility] Test Date: 2018-08-13 Pat Name: RENATA SALES Department: Room: Q8818-85 Gender: Male Slip Sheeter: JATIN : 1950 Requested By: GAYLA EDWARD Order Number: [id number] Reading MD: Jazmine Palmer Measurements Intervals [place] Rate: 82 P: 56 NM: 212 QRS: 40 QRSD: 90 T: 62 QT: 395 QTc: 464 Interpretive Statements SINUS RHYTHM WITH FIRST DEGREE AV BLOCK NONSPECIFIC ST & T-WAVE ABNORMALITY SLIGHTLY MORE MARKED C/W 07/27/18 Electronically Signed on 08-13-2018 13:21:41 EDT by Jazmine Palmer
--- NOTE | 2018-08-13 13:44 | REP ---
MRI STUDY OF THE BRAIN WITHOUT CONTRAST: HISTORY: Seizure. Comparison head CT study August 13, 2018. Comparison MRI study July 28, 2018. TECHNIQUE: The patient was not able to cooperate for the examination. Only the diffusion weighted sequence was accomplished and the examination had to be terminated. MRI FINDINGS: Diffusion weighted scan show no evidence to suggest acute ischemia. Limited study as above. IMPRESSION: Incomplete exam. Only diffusion weighted sequence acquired. No evidence to suggest acute ischemia. Electronically Signed by Mani Medina MD 08/13/2018 05:11 P
[2018-08-13] MEDS ORDERED: ACETAMINOPHEN TAB 650MG DOSE (2X325MG) PO PRN (20:00)
[2018-08-13] MEDS: ADVAIR HFA 230/21MCG INHALER INH SCH (20:45)
[2018-08-13] MEDS: GABAPENTIN 100 MG CAP PO SCH (21:00)
[2018-08-13] MEDS: ROSUVASTATIN 10 MG TAB (CRESTOR) PO SCH (21:00)
[2018-08-13] MEDS: levETIRAcetam INJection 250 MG in D5W 100 ML IV SCH (21:41)
[2018-08-13] MEDS: PIPERACILLIN/TAZOBACTAM SOD 2.25 GM in D5W MINI-BAG PLUS 50 ML IV SCH (23:06)
--- NOTE | 2018-08-13 23:18 | CR ---
DATE OF CONSULTATION: 08/13/2018 My attending on this case is Dr. Parikh. ADMITTING PHYSICIAN: Dr. Johnny Chisholm CHIEF COMPLAINT: Tonic-clonic like movements status post cardiac arrest. HISTORY OF PRESENT ILLNESS: This is a 68-year-old male with a pertinent past medical history of coronary artery disease, status post one-vessel coronary artery bypass graft (CABG) in 2018, bilateral lacunar infarcts in the basal ganglia, end-stage renal disease - on dialysis on Monday, Monday, Monday, type 2 diabetes - on insulin, peripheral artery disease, who was admitted for cardiac arrest secondary to apneic episode. The patient was in outpatient angio suite for an angiography of the right leg by Dr. Blank. At the end of the procedure, it was noted that he became apneic. His oxygen saturation was down to 74%, and his heart rate was bradycardic to pulseless rhythm. After chest compressions and bag mask valve for ventilation, his saturations improved to 95%. He got chest compressions for about 2 minutes before he returned to normal sinus rhythm. It was noted at the end of the MAX Cart, he did appear to have myoclonus activity in the left upper extremity, and he was unable to articulate or respond to command but only respond to pain. Hospitalist team admitted the patient for further evaluation and neurology was called for consultation. PAST MEDICAL HISTORY: 1. End-stage renal disease, on hemodialysis on Monday, Monday, Monday. 2. Type 2 diabetes, on insulin. 3. Peripheral neuropathy. 4. Coronary artery disease, status post one-vessel CABG in 2018. 5. Bilateral lacunar infarcts of the basal ganglia. 6. Dyslipidemia. 7. Diastolic and systolic congestive heart failure with an ejection fraction of 40%. 8. BPH. 9. Ischemic ulcers of the left lower extremity, status post left 5th digit amputation. 10. Chronic diabetic foot ulcer of the left lateral aspect of the foot. 11. Peripheral vascular disease with multiple interventions, status post stent of the left leg and right leg. Most recent is right leg today, 08/13/2018. SURGICAL HISTORY: One-vessel CABG in 06/2017. Left vessel angiogram with ballooning in 11/2017. Left lower extremity angiogram in 04/2018. Left lower extremity angiogram with stent and ballooning in 04/2018 with left popliteal and SFA. Right angiogram in 05/2018. Left angiogram with ballooning in 05/2018. Left 5th toe amputation and wound debridement in 06/2018. Status post thrombectomy of the left leg arteries in 05/2018. History of recurrent pleural effusions with three thoracocentesis in 2018, status post PleurX catheter. Right PleurX catheter in 08/2017. Right PleurX catheter removed in 12/2017. Appendectomy 1996. Laparoscopic cholecystectomy 2005. Peritoneal dialysis catheter placed in 10/2010. Prostate biopsy in 09/2011. Fistula insertion 06/2013. New fistula right upper arm insertion 07/2016. Laser surgery for diabetic retinopathy 10/2013. Removal of peritoneal dialysis catheter and excision of abscess in 01/2014. Bilateral cataract removal in 06/2016. Port insertion of the right upper chest in 06/2016. FAMILY HISTORY: Mother and father due to history of cancer. SOCIAL HISTORY: Denies alcohol, tobacco, illicit drug use. REVIEW OF SYSTEMS: Unable to obtain a review of systems from the patient as he is not communicating. PHYSICAL EXAMINATION: Vital signs: Temperature 96.9 temporal, pulse 80, respirations 24, blood pressure 163/75 (104), pulse oximetry 100% on 4 liters of nasal cannula. General: This is a 68-year-old male laying comfortably in the bed. He does not appear in acute distress. HEENT: Atraumatic, normocephalic. Pupils are equal, round, and reactive, accommodating to light, slightly jaundice in color. Slight left lower lip drooping but with symmetric smile. No tongue biting. No tongue deviation. Cardiovascular: Regular rate and rhythm. Positive S1, S2 sounds with a slight 2/6 systolic murmur in the right 2nd intercostal space. No audible rubs or gallops. Lungs: Poor inspiratory effort, likely due to the fact that he cannot do deep inhalation. No audible wheezing, rales, or rhonchi but does have adventitious lung sounds in the upper respiratory tract. Abdomen: Soft, nondistended, nontender with positive bowel sounds in all four quadrants. Old laparotomy scars and peritoneal scars noted. Healed appropriately. Extremities: No lower extremity edema. Slight calf tenderness on the right status post procedure. No mottled appearance. Left 5th digit amputated, healing appropriately. Neurological Exam: Unable to follow commands entirely, neurologic (neuro) deficit noted with left lower lip droop slightly but with a symmetric smile. No tongue deviation. Right upper extremity 4/5 strength. Left upper extremity 2/5 of the biceps and shoulders. Lower extremities bilaterally respond to light touch and withdraws from painful stimuli. Deep tendon reflexes intact bilaterally in the knees and ankles. Upward going Babinski sign in the left foot versus a downward Babinski sign in the right foot. Left lower extremity muscle strength 2/5 versus right lower extremity 3-4/5 questionable. IMAGING: CT of the brain without contrast: Heavy vascular calcification. Diffuse cerebral atrophy with small vessel changes. Old bilateral lacunar infarcts in the basal ganglia. No acute intracranial abnormalities. Brain MRI without contrast: Incomplete exam. Only diffusion weighted sequences occurred. No evidence to suggest acute ischemia. ASSESSMENT AND PLAN: This is a 68-year-old male with a significant past medical history of peripheral vascular disease, coronary artery disease, currently on dialysis for end-stage renal disease secondary to hypertension and diabetes who was admitted status post cardiac arrest after an outpatient angio stent placement on the right lower leg. Neurology was consulted for localized left upper extremity myoclonus activity. 1. Left upper extremity myoclonus activity. Unsure if it is secondary to a metabolic encephalopathy, essential myoclonus, post-toxic myoclonus versus progressive myoclonic epilepsy, unlikely it is epilepsy. The patient does have a history of bilateral basal ganglia strokes in the past, which are not likely contributing to his epilepsy but can contribute to his focal paralysis in the left upper and lower extremity. His first stroke was in 2004. He was already loaded with 1000 mg of Keppra. Because of hemodialysis patient, we will continue with 250 mg twice a day of Keppra and will review his EEG. I do believe that this is possibly contributing to the fact that he is an end-stage renal disease patient on hemodialysis. There is a likely chance that his involuntary movements can be due to vasovagal versus toxic encephalopathy secondary from all his medications. We will continue to watch for clinical improvement and continue with the Keppra. If his newest EEG shows any pertinent findings, we will assess further. Thank you for this consultation. [facility]
[2018-08-14] VITALS (15 sets, daily range): BP systolic 124–175; BP diastolic 60–79
[2018-08-14] MEDS ORDERED: levETIRAcetam INJection 750 MG in D5W 100 ML IV SCH (01:00)
[2018-08-14] MEDS: ALBUTEROL SULFATE 2.5 MG/0.5 ML INH NEB SOLN NEB SCH ×6 (02:27→23:43)
[2018-08-14 05:05] LABS: ALBUMIN 2.8 GM/DL (3.2-5.2); BASO % 0.6 % (0.0-1.0); BILIRUBIN,TOTAL 0.4 MG/DL (0.2-1.0); CALCIUM LEVEL 8.2 MG/DL (8.8-10.2); CREATININE FOR GFR 8.87 MG/DL (0.70-1.30); EOS # 0.2 10^3/uL (0.0-0.50); EOS % 3.8 % (0.0-3.0); GLOMERULAR FILTRATION RATE 6.4 (>49); HEMATOCRIT 27.4 % (42.0-52.0); HEMOGLOBIN 8.6 g/dl (13.5-17.5); LYMPH % 18.7 % (24.0-44.0); MAGNESIUM LEVEL 2.2 MG/DL (1.8-2.4); MEAN CORPUSCULAR HEMOGLOBIN 31.6 pg (27.0-33.0); MEAN CORPUSCULAR HGB CONC 31.4 g/dl (32.0-36.5); MEAN CORPUSCULAR VOLUME 100.7 fl (80.0-96.0); MONO # 0.4 10^3/uL (0.0-0.8); MONO % 7.3 % (0.0-5.0); NEUTROPHILS # 3.6 10^3/uL (1.8-7.7); PLATELET COUNT, AUTOMATED 113 10^3/uL (150-450); POTASSIUM SERUM 4.4 MEQ/L (3.5-5.1); RED BLOOD COUNT 2.72 10^6/uL (4.30-6.10); TOTAL PROTEIN 7.1 GM/DL (6.4-8.2); WHITE BLOOD COUNT 5.2 10^3/uL (4.0-10.0)
[2018-08-14] MEDS: CALCIUM CARBONATE 500 MG CHEW U/D PO SCH ×3 (06:13→17:26)
[2018-08-14] MEDS: PIPERACILLIN/TAZOBACTAM SOD 2.25 GM in D5W MINI-BAG PLUS 50 ML IV SCH ×3 (06:13→22:34)
[2018-08-14] MEDS: HEPARIN SOD (PORCINE) 5000 UNITS/ML VIAL SQ SCH ×3 (06:13→21:20)
[2018-08-14] MEDS: (RENVELA) SEVELAMER **CARBONate** 800 MG TAB PO SCH ×4 (06:13→17:26)
[2018-08-14] MEDS: GABAPENTIN 100 MG CAP PO SCH ×2 (06:13→21:21)
--- NOTE | 2018-08-14 07:05 | EEG ---
DATE OF EE08/13/2018 REFERRING PHYSICIAN: Dr. Nicola Blank DIAGNOSIS: Seizure. EEG NUMBER: [id number] HISTORY: The patient is 68-year-old man with a history of end-stage renal disease who went into cardiac arrest during outpatient angiography. His EEG in July 2018 showed encephalopathy. This EEG was done to rule out epileptic potential and assess degree of encephalopathy. TECHNICAL DESCRIPTION: This digital EEG was recorded by 21 scalp, ear and two EKG electrodes and was reviewed in bipolar and referential montages following reformatting 10-20 international electrode placement system. INTERPRETATION: The patient was noted to be in drowsy, confused and sleep states during this EEG. Background rhythm consisted of 3 - 4 Hz delta activity measuring 15 - 30 microvolts in amplitude which was symmetric bilaterally. Hyperventilation could not be performed. Photic stimulation remained unremarkable. Stage 2 sleep was noted. No focal, lateralizing or epileptiform abnormalities were seen. No clinical or electrographic seizures were recorded. The patient remained confused, unable to follow commands for this EEG. EKG revealed normal sinus rhythm. CONCLUSION: This EEG in drowsy state and stage 2 sleep is abnormal due to presence of generalized slowing and disorganization of background consistent with nonspecific diffuse cerebral dysfunction such as seen in moderately severe encephalopathy due to multiple potential causes including toxic, metabolic, medication related, infectious or multifocal structural brain abnormalities. No epileptiform abnormalities were seen. Clinical correlation is recommended.
[2018-08-14] MEDS: ADVAIR HFA 230/21MCG INHALER INH SCH ×2 (07:58→18:12)
[2018-08-14] MEDS: PANTOPRAZOLE 40MG TAB (PROTONIX) PO SCH (08:11)
[2018-08-14] MEDS: CLOPIDOGREL 75 MG TAB PO SCH (08:11)
[2018-08-14] MEDS: CETIRIZINE (ZyrTEC) 10 MG TAB PO SCH (08:11)
[2018-08-14] MEDS: HumaLOG INSULIN (NovoLOG) PER UNIT SC SCH ×5 (08:13→17:16)
[2018-08-14] MEDS: levETIRAcetam INJection 250 MG in D5W 100 ML IV SCH ×2 (09:32→21:20)
--- NOTE | 2018-08-14 09:36 | CR ---
DATE OF CONSULTATION: 08/14/2018 Requesting provider: Dr. Johnny Chisholm. REASON FOR CONSULTATION: Evaluation for seizure. HISTORY OF PRESENT ILLNESS: Ayaan Dykes is a 68-year-old male with past history of cerebrovascular disease, status post to ischemic strokes involving bilateral basal ganglia with left-sided hemiparesis, worse than the right at baseline. The patient has type 2 diabetes insulin dependent as well as end-stage renal disease on hemodialysis with history of coronary artery disease. The patient was undergoing a catheterization for peripheral vascular disease stent placement earlier today. The patient had an event of developing significant drop in blood pressure, bradycardia and asystole. Chest compressions were initiated. The patient returned to sinus rhythm within 2 minutes. Oxygen saturations were at the lowest 74%. Within 2 minutes, they were back up to 94%. The patient did not require intubation. He was given oxygen via bag mask immediately. The patient did not require electroshock therapy. With chest compressions he returned back to sinus rhythm. He did not require any epinephrine or atropine. The patient, at the present time, is quite lethargic, sedated. He does open his eyes to voice. He does follow some commands. He is able to move all four extremities. The patient's head CT was completed, which was negative for any intracerebral hemorrhage. MRI of the brain was completed, though limited in the completion of the study, only DWI. ADC MIP sequences were completed showing no acute stroke. The patient did have an EEG which showed moderate encephalopathy. He was loaded with 1 gram of Keppra due to having tonoclonic activity of the left upper extremity which was rhythmic it seems. It could have been myoclonus versus focal motor seizure. Keppra will be maintained at a lower dosage of 250 mg twice a day and dosed every day and more specifically after dialysis on his dialysis days. 250 mg twice a day is adequate renal dosing. The patient had an episode in July where he would stare off, have altered mental status, slurred speech. It is unclear whether he is having a transient ischemic attack (TIA) versus metabolic encephalopathy at that time as well. In the month of June, he had an episode of drop in blood pressure and unresponsiveness as well. He has had episodes of staring off as per his . REVIEW OF SYSTEMS: Unobtainable. The patient is quite lethargic. MEDICATIONS: - amlodipine - calcitriol - calcium carbonate - carvedilol - cetirizine - Benadryl - ergocalciferol - fluticasone propionate/salmeterol - folic acid/vitamin B complex/vitamin C - gabapentin - insulin - pantoprazole - rosuvastatin - Renvela - acetaminophen - albuterol ALLERGIES: ASPIRIN. PAST MEDICAL HISTORY: End-stage renal disease on hemodialysis Monday, Monday, Monday. Insulin-dependent type 2 diabetes. Peripheral polyneuropathy. Coronary artery disease status post coronary artery bypass graft (CABG) in 2018. History of bilateral basal ganglia strokes with left-sided hemiparesis greater than right-sided hemiparesis. Dyslipoproteinemia (DLP) diastolic and systolic at 40%. Benign prostatic hypertrophy (BPH) Ischemic ulcers of lower extremities. Chronic diabetic foot ulcer on the left lateral aspect of foot. Peripheral vascular disease (PVD) with multiple interventions status post stent of the left leg. PAST SURGICAL HISTORY: As per medical records. One-vessel CABG 07/04/2017. Multiple angiograms of the lower extremities. Appendectomy in 1996. Laparoscopic cholecystectomy in 2005 History of peritoneal dialysis. Fistula insertion 07/02/2013, left upper extremity. New fistula place in right upper arm 08/02/2016 Cataract removal 2016 bilaterally. Port insertion right upper chest June 2016 FAMILY HISTORY: Noncontributory. SOCIAL HISTORY: The patient, by records, does not consume alcohol, use tobacco or illicit drugs. PHYSICAL EXAMINATION: Blood pressure is 163/75, pulse rate is 80, respiratory rate is 24, oxygenation is 100% on 4 liters nasal cannula. Temperature is 96.9 degrees Fahrenheit. The patient opens his eyes to his voice. He is able to stick his tongue out on command. He is able to lift his arms up and hold them up on command with a drift down to the bed. He is able to wiggle his toes and extend his knees. He did cannot hold his legs up off to the bed without command. Deep tendon reflexes appear to be 3s on the left, 2+ on the right. Positive Babinski sign on the left, downgoing on the right. The patient reacts to tactile stimulation in all four extremities. Pupils are round, reactive to light. Facial symmetry appears to be intact. With activation, though, there is slight flattening of nasolabial fold at rest of the left lower face. The rest of neurological examination not possible due to the patient being severely lethargic and unable to cooperate with the rest of exam. ASSESSMENT: 68-year-old male status post cardiac arrest during angiogram intervention for lower extremity peripheral vascular disease with asystole for 2 minutes with O2 sat dropping lower 74% with returned to spontaneous rhythm with chest compression only. At this time, the patient has moderate encephalopathy likely due to requiring dialysis and multiple medications provided to the patient including Narcan and flumazenil. The patient will be maintained on Keppra 250 mg IV twice a day until he is more awake, then switch to oral. On dialysis days dose is to be given after dialysis. Recommend continue supportive care. MRI did not reveal any stroke. The patient has fair prognosis. Recommend physical therapy (PT), occupational therapy (OT) evaluations once the patient is more awake.
[2018-08-14] MEDS ORDERED: HEPARIN 1,000 UNITS/ML 10ML VIAL (FOR RADIOLOGY& DIALYSIS ONLY) IV ONE (11:00)
--- NOTE | 2018-08-14 12:22 | IPN ---
DATE OF VISIT: 08/14/2018 Mr. Dykes is seen again this morning on his bedside in intensive care unit. His is present in the room at the time of my visit. I saw him last evening for initial consultation. The patient is feeling much better this morning and nursing staff reports that he was able to eat his breakfast and take his medications without any problem. His mentation has improved significantly and he was able to have normal conversation at his baseline mentation. He still has mild cough but no fever or chills. He denies any dyspnea or chest pain. PHYSICAL EXAMINATION: Temperature 98.3 degrees Fahrenheit, heart rate 72 per minute and respiratory rate 18 per minute. Blood pressure 124/60 mmHg and oxygen saturation 96% on room air. Head is atraumatic. Neck is supple and without jugular venous distention (JVD) or thyroid enlargement. Ears, nose and throat are unremarkable. Heart exam reveals regular S1-S2. Lungs have good bilateral air entry with minimal expiratory wheezing. Abdomen is soft and nontender and bowel sounds are normal. Extremities have no cyanosis or clubbing. Neurologically he is much alert and almost at his baseline mentation today. Today's labs show a WBC count 5.2, hemoglobin 8.6 and hematocrit 27.4. Sodium 139, potassium 4.4, CO2 26, BUN 51 and creatinine 8.87. Total protein 7.1 and albumin 2.8. PROBLEMS: 1. End-stage renal disease. The patient did miss his dialysis yesterday and we will plan to dialyze him this afternoon. His electrolytes are still stable and volume status is reasonably well-compensated. We will try to remove only 1 liter of fluid. 2. Altered mentation. The patient had altered mentation following his cardiac arrest and resuscitation yesterday which seems to be improved almost back to baseline. 3. Anemia. Anemia is multifactorial related to foot ulcers and procedures. He also has end-stage renal disease. We will not give him any Aranesp today, however, with the next dialysis we will start it. There is no emergent indication for a transfusion. 4. Hypertension. Blood pressure seems very well controlled and no changes are being made today.
--- NOTE | 2018-08-14 12:41 | CR ---
DATE OF CONSULTATION: 08/13/2018 REFERRING PHYSICIAN: Dr. Blank. The patient is admitted by hospitalist service under Dr. Chisholm. REASON FOR CONSULTATION: Assist in the management of end-stage renal disease. HISTORY OF PRESENT ILLNESS: Mr. Dykes is a 68-year-old gentleman with multiple chronic medical problems including hypertension, end-stage renal disease, type 2 diabetes, peripheral vascular disease, coronary artery disease with prior coronary artery bypass graft (CABG) and multiple strokes in the past. He has had ulcers on both feet and has had multiple procedures including angioplasties. He was electively scheduled for another angioplasty of his leg on 08/13/2018. After completion of the procedure the patient became unresponsive and was resuscitated. He is admitted to intensive care unit. The patient missed his dialysis treatment due to acute hospitalization and a nephrology consultation was requested. PAST MEDICAL AND SURGICAL HISTORY: Significant for 1. Longstanding diabetes. 2. Hypertension. 3. End-stage renal disease. 4. History of congestive heart failure and recurrent pleural effusion. 5. History of peripheral neuropathy. 6. History of coronary artery disease, status post CABG in 2018. 7. History of multiple strokes in the past. 8. History of peripheral vascular disease with prior angioplasties and ulcers on both feet. 9. History of dyslipidemia. 10. History of systolic and diastolic congestive heart failure. 11. History of benign prostatic hypertrophy (BPH) 12. Anemia. PAST SURGICAL HISTORY: Significant for 1. left arm arteriovenous (AV) fistula 2. Multiple angioplasties 3. Toe amputation 4. CABG. 5. History of recurrent pleural effusions requiring thoracentesis and PleurX catheter placement and removal. 6. Appendectomy. 7. Cholecystectomy. 8. Peritoneal dialysis catheter placement and removal. 9. Prostate biopsies. 10. Laser surgery for diabetic retinopathy. 11. Perma-Cath placement and removal. 12. Bilateral cataract surgery. MEDICATIONS: His home medications included - amlodipine 2.5 mg daily - calcium carbonate 1000 mg with meals - carvedilol 12.5 mg twice a day - Plavix 75 mg daily - vitamin D 50,000 units once a week - Advair discus 230/21 micrograms two puffs twice a day - gabapentin 100 mg twice a day - insulin - Protonix 40 mg daily - Crestor 10 mg daily - Renvela 800 mg daily with meals. He also uses albuterol and Tylenol as needed. PERSONAL AND SOCIAL HISTORY: The patient is and lives with his . He does not smoke or drink. FAMILY HISTORY: Negative for end-stage renal disease. REVIEW OF SYSTEMS: He has no history of fever or chills. The patient became unresponsive at the end of his angioplasty procedure and has been admitted to intensive care unit. He was not mentating very well earlier. However, when I saw him in the evening nursing staff reported that he just started to answer questions. Cardiovascular system is significant for known history of coronary artery disease and prior CABG just in 2018. He had unresponsive episode and was resuscitated this morning after angioplasty procedure. Respiratory system is significant for hypoxemia following cardiac arrest, however, he is improving now. He does have cough and mild wheezing. Gastrointestinal (GI) system is negative for vomiting or diarrhea. Genitourinary () system is negative for dysuria or hematuria. Endocrine system is significant for type 2 diabetes and secondary hyperparathyroidism. Hematological system is significant for anemia of chronic kidney disease. Neurological system is significant for multiple strokes in the past and an episode of unresponsiveness today following his angioplasty. PHYSICAL EXAMINATION: Temperature 98.3 degrees Fahrenheit, heart rate 80 per minute and respiratory rate 22 per minute. Blood pressure 130/60 mmHg and oxygen saturation 93%. His head is atraumatic. Neck is supple and without jugular venous distention (JVD) or thyroid enlargement. Nose and throat are unremarkable. Heart: Sounds are regular and lungs have mild expiratory wheezing. He has good bilateral air entry. Abdomen: Soft and nontender. Bowel sounds are normal. Extremities have no cyanosis or clubbing. His feet are wrapped in dressings. Neurologically, he is awake now and was able to answer simple questions. LAB DATA: WBC count 6.4, hemoglobin 10.5 and hematocrit 33.8. Platelets 125. Sodium 137, potassium 4.5, CO2 26, BUN 40 and creatinine 7.76. Glucose 149 and calcium 8.7. Troponin 0.03. Blood gas showed a pH of 7.44, pCO2 40 and pO2 262. Bicarb 27. CT scan of head was done, which did not show any acute bleed or infarct. Chest x-ray did not show any acute infiltrate. There is cardiomegaly with some vascular congestion. Small bilateral pleural effusions noted. PROBLEMS: 1. End-stage renal disease: The patient did miss his dialysis. He is hemodynamically now stable. However, there is no emergent indication for dialysis. We will plan on dialyzing him on August 14. 2. Altered mentation: The patient had a cardiac arrest and required resuscitation. He has prior history of multiple strokes but his mentation is now gradually improving. He will need to be monitored closely. CT scan did not show any acute bleed or infarct. I do not feel that he is uremic and does not need any urgent dialysis. 3. Cough and wheezing. The patient may have aspirated and he has cough and respiratory wheezing. In order to cover all bases, I will put him on broad-spectrum antibiotic as he also has an infected foot ulcer and we will start with Zosyn 2.25 grams every 8 hours and start with albuterol nebulizers every 6 hours. 4. Hypertension: He was hypotensive and blood pressure is still normal range. I do not feel that we need to aggressively lower his blood pressure at this point. I will leave medications unchanged. 5. Peripheral vascular disease: The patient had angioplasty done on his left lower extremity which was uneventful until after completion of procedure. It remains to be seen how he his ulcers heal. Thank you for involving me in the care of Mr. Dykes. I will follow him along with you.
[2018-08-14] MEDS ORDERED: IPRATROPIUM 0.5MG/ALBUTEROL 2.5MG INH SOL UD 3ML (DUONEB)(J7620) NEB PRN (14:45)
--- NOTE | 2018-08-14 19:10 | IPNPDOC ---
Text Note Date of Service The patient was seen on 08/14/18. NOTE S: Pt examined during dialysis. Is more interactive. No f/c/n/v. No reported events overnight. During HD, he did experience chest ache for a few minutes on left side, nonradiating, worse with deep breathing, and without any other associated symptoms. Vitals were stable, and cp resolved spontaneously. Pt believes it is related to CPR from admission and coughing that started overnight. No phlegm production. No other complaints. Tolerated rest of HD well. O: Vitals: See below General: NAD, fully conversant, resting comfy HEENT: NC, AT, EOMI, neck supple full ROM CV: RRR, no murmurs Lungs: expiratory wheezing with scattered rhonchi. Dry cough on inhalation & with speaking. No rales or accessory muscle use. Abdomen: Soft, nondistended and nontender Extremities: No edema or tenderness A/P: Cardiac arrest with successful resuscitation + hypoxic resp failure Pt is s/p CPR with bag-valve mask for episode in o/p Angio suite where he became hypoxic in 70s, apneic, and then went into PEA. With CPR alone, no medication or defibrillation, ROSC was achieved, with return to NSR & O2 >90%. head imaging neg, EEG shows encephalopathy but no seizure-like forms. Neuro consulted, appreciate input: continue on Keppra. May have aspirated during procedure vs seizure. Currently has cough-may be residual from recent CPR episode vs aspiration. No f/c, WBC WNL. Monitor. Continue Day 2 Zosyn. Supportive care with acapella, IS, nebs Anemia of chronic ds as seen by most recent iron studies 07/2018 & macrocytosis drop in Hgb from 10 to 8 today, no active bleeding. Monitor Diastolic and Systolic CHF (EF: 40%) no signs of decompensation on physical, although CXR with bilateral pleural effusions satting well, will monitor. Consider diuresis if breathing declines. Elevated lactic acid normalized. Likely 2/2 hypoxic event during Max Cart, resp failure, and recent CPR ESRD on HD (MWF) Nephro consulted, HD today, TTS while inpatient IDDM2 c/w ISS Peripheral neuropathy c/w Gabapentin CAD s/p CABG (2017) c/w Rosuvastatin and Plavix Hx of multiple strokes affecting both the left and right sides with residual paresis, foot drop (Left > Right) c/w Rosuvastatin and Plavix DLP c/w Rosuvastatin BPH currently not on medications ischemic ulcers of the left lower extremity, chronic diabetic foot ulcer on the left lateral aspect of foot PVD with multiple interventions s/p stent of Left leg GERD c/w Protonix DVT prophylaxis: heparin sc Prognosis: Guarded Code status: DNR / DNI, confirmed with MOLST & DISPO: will donwgrade out of ICU. Continue monitoring, work PT/OT. I saw and evaluated the patient. I agree with the findings and plan of care as documented in the above note VS,Fishbone, I+O VS, Fishbone, I+O Laboratory Tests 08/14/18 04:15 Red Blood Count 2.72 L, Mean Corpuscular Volume 100.7 H, Mean Corpuscular Hemo globin 31.6, Mean Corpuscular Hemoglobin Concent 31.4 L, Red Cell Distribution Width 15.3 H, Neutrophils (%) (Auto) 69.0 H, Lymphocytes (%) (Auto) 18.7 L, Monocytes (%) (Auto) 7.3 H, Eosinophils (%) (Auto) 3.8 H, Basophils (%) (Auto) 0.6, Neutrophils # (Auto) 3.6, Lymphocytes # (Auto) 1.0 L, Monocytes # (Auto) 0.4, Eosinophils # (Auto) 0.2, Basophils # (Auto) 0.0, Calcium Level 8.2 L, Aspartate Amino Transf (AST/SGOT) 25, Alanine Aminotransferase (ALT/SGPT) 15, Alkaline Phosphatase 65, Total Bilirubin 0.4, Total Protein 7.1, Albumin 2.8 L Vital Signs Date Time Temp Pulse Resp B/P (MAP) Pulse Ox O2 Delivery O2 Flow Rate FiO2 08/14/18 16:55 97.8 88 24 175/78 (110) 95 08/13/18 17:30 2.0 08/13/18 10:15 Non-Rebreather I&O- Last 24 Hours up to 6 AM 08/14/18 06:00 Intake Total 512.5 ml Output Total 55 ml Balance 457.5 ml GME ATTESTATION GME ATTESTATION My faculty preceptor for this patient encounter was physically present during the encounter and was fully available. All aspects of the patient interview, examination, medical decision making process, and medical care plan development were reviewed and approved by the faculty preceptor. The faculty preceptor is aware and concurs with the plan as stated in the body of this note and will attest to such by his/her cosignature. BEREKET JUAREZ DO Aug 14, 2018 19:10 CHIOMA HOLMAN MD Aug 29, 2018 15:53
[2018-08-14] MEDS ORDERED: HumaLOG INSULIN (NovoLOG) PER UNIT SC SCH (21:00)
[2018-08-14] MEDS: ROSUVASTATIN 10 MG TAB (CRESTOR) PO SCH (21:21)
[2018-08-15 02:20] VITALS: BP 160/80
[2018-08-15 03:20] VITALS: BP 160/80
[2018-08-15] MEDS: ALBUTEROL SULFATE 2.5 MG/0.5 ML INH NEB SOLN NEB SCH ×4 (03:34→14:56)
[2018-08-15] MEDS: PIPERACILLIN/TAZOBACTAM SOD 2.25 GM in D5W MINI-BAG PLUS 50 ML IV SCH ×2 (05:07→14:00)
[2018-08-15] MEDS: HEPARIN SOD (PORCINE) 5000 UNITS/ML VIAL SQ SCH ×2 (05:08→14:26)
[2018-08-15 06:00] VITALS: BP 162/74
[2018-08-15 06:24] LABS: BASO % 0.6 % (0.0-1.0); EOS # 0.2 10^3/uL (0.0-0.50); EOS % 3.1 % (0.0-3.0); HEMATOCRIT 26.3 % (42.0-52.0); HEMOGLOBIN 8.1 g/dl (13.5-17.5); LYMPH # 0.9 10^3/uL (1.5-4.5); LYMPH % 18.9 % (24.0-44.0); MEAN CORPUSCULAR HEMOGLOBIN 30.7 pg (27.0-33.0); MEAN CORPUSCULAR HGB CONC 30.8 g/dl (32.0-36.5); MEAN CORPUSCULAR VOLUME 99.6 fl (80.0-96.0); MONO # 0.5 10^3/uL (0.0-0.8); MONO % 9.4 % (0.0-5.0); NEUTROPHILS # 3.3 10^3/uL (1.8-7.7); NEUTROPHILS % 67.6 % (36.0-66.0); PLATELET COUNT, AUTOMATED 121 10^3/uL (150-450); RED BLOOD COUNT 2.64 10^6/uL (4.30-6.10); WHITE BLOOD COUNT 4.8 10^3/uL (4.0-10.0)
[2018-08-15 06:50] LABS: ALBUMIN 2.9 GM/DL (3.2-5.2); BILIRUBIN,TOTAL 0.3 MG/DL (0.2-1.0); CALCIUM LEVEL 8.6 MG/DL (8.8-10.2); CREATININE FOR GFR 5.11 MG/DL (0.70-1.30); MAGNESIUM LEVEL 2.2 MG/DL (1.8-2.4)
[2018-08-15] MEDS: ADVAIR HFA 230/21MCG INHALER INH SCH (07:46)
[2018-08-15 08:56] LABS: C REACTIVE PROTEIN QUANTITATIV 6.75 MG/DL (0.00-0.30)
[2018-08-15] MEDS: levETIRAcetam INJection 250 MG in D5W 100 ML IV SCH (09:00)
[2018-08-15] MEDS: (RENVELA) SEVELAMER **CARBONate** 800 MG TAB PO SCH ×2 (09:13→11:44)
[2018-08-15] MEDS: CETIRIZINE (ZyrTEC) 10 MG TAB PO SCH (09:13)
[2018-08-15] MEDS: HumaLOG INSULIN (NovoLOG) PER UNIT SC SCH ×2 (09:13→11:38)
[2018-08-15] MEDS: CALCIUM CARBONATE 500 MG CHEW U/D PO SCH ×2 (09:13→11:44)
[2018-08-15] MEDS: CLOPIDOGREL 75 MG TAB PO SCH (09:13)
[2018-08-15] MEDS: PANTOPRAZOLE 40MG TAB (PROTONIX) PO SCH (09:13)
[2018-08-15] MEDS: GABAPENTIN 100 MG CAP PO SCH (09:13)
[2018-08-15] MEDS ORDERED: guaiFENesin DM LIQ 10ML UD PO PRN (10:30)
[2018-08-15] MEDS: BENZONATATE 100 MG CAP PO SCH ×2 (11:44→16:00)
[2018-08-15] MEDS ORDERED: DARBEPOETIN 100 MCG/0.5 ML *DIALYSIS* SYRINGE (J0882) IV SCH (11:45)
[2018-08-15] MEDS ORDERED: HEPARIN 1,000 UNITS/ML 10ML VIAL (FOR RADIOLOGY& DIALYSIS ONLY) IV ONE (12:15)
[2018-08-15] MEDS ORDERED: BENZ-18 PO ×2 (13:29→15:31)
[2018-08-15] MEDS ORDERED: GUAISYP5 PO ×2 (13:29→15:31)
[2018-08-15] MEDS ORDERED: LEVO250T12 PO (13:29)
--- NOTE | 2018-08-15 13:50 | IPN ---
DATE OF VISIT: 08/15/2018 Mr. Dykes is seen this morning on his bedside. He continues to have cough and shortness of breath. He underwent hemodialysis yesterday, which he tolerated well. He has no fever or chills. On physical exam, temperature 97.6 degrees Fahrenheit, heart rate 86 per minute and respiratory rate 20 per minute. Blood pressure 162/74 mmHg and oxygen saturation 96% on room air. His head is atraumatic. Neck is supple and jugular venous distention (JVD) seems to be elevated, though difficult to be assessed. He has no oral thrush or ulcers. Heart sounds are regular and lungs with bilateral wheezing and scattered rhonchi. Abdomen soft and nontender, and bowel sounds are normal. Extremities without any cyanosis or clubbing. Neurologically, he seems to be at his baseline mentation. Today's labs show WBC count 4.8, hemoglobin 8.1 and hematocrit 26.3. Sodium 136, potassium 4.0, BUN 25 and creatinine 5.11. PROBLEMS: 1. End-stage renal disease. Patient was dialyzed yesterday, which he tolerated very well. His regular dialysis will be done again tomorrow. 2. Cough and shortness of breath. Patient seems to be slightly volume overloaded and we are going to schedule him for an extra ultrafiltration this afternoon and try to remove 2 liters of fluid and see if that helps. He is already on albuterol nebulizer and Zosyn for possible pulmonary infection. 3. Anemia. His anemia has worsened and I am going to start him on Aranesp 200 mcg once a week. 4. Hypertension. Blood pressure is very well controlled and no changes are being made today.
[2018-08-15 14:00] VITALS: BP 159/88
[2018-08-15] MEDS ORDERED: KEPP250T5 PO (15:05)
--- NOTE | 2018-08-15 18:51 | DS.PDOC ---
Discharge Summary General Date of Admission Aug 13, 2018 at 09:25 Date of Discharge 08/15/18 Attending Physician: CHIOMA HOLMAN MD Specialist/Consultants Involve neuro: Dr. biggs Nephro: Dr. David Larose Discharge Summary PROCEDURES PERFORMED DURING STAY: CPR + bag valve ventilation ADMITTING DIAGNOSES: 1. Cardiac arrest with successful resuscitation 2. 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 HISTORY OF PRESENT ILLNESS: 68 yo M was undergoing o/p angiogram with Dr. Blank, noted to became hypoxic in 70s, apneic, bradycardic, and then went into PEA. He underwent CPR with compressions and bag-valve mask ventilation, returned to NSR and O2 >90% after 2 minutes. No drugs were administered and pt did not require defibrillation. ROSC was achieved with CPR only, and he was thereafter admitted. HOSPITAL COURSE: There was concern of possible aspiration vs seizure during this episode, as he was noted to have clonic jerking afterwards. Neurology was consulted. Head imaging was neg for stroke, EEG showed encephalopathy but no seizure-like forms. Neuro was consulted, and per their recs, Pt was started on Keppra. May have aspirated during procedure vs seizure. Given concern of aspiration and pt coughing, he was started on antibiotics and added supportive care with acapella, IS, nebs. Also of note, he was found to be anemic, workup revealing anemia of chronic disease with macrocytosis. He was continued on his regular hemodialysis schedule. He ultimately improve, no fevers or white count or other competitions during this stay. Antibiotics were stopped. He worked with PT and OT, and was recommended for acute rehabilitation to which he agreed. It is suspected that his initial episode during our procedure was likely 2/2 aspiration, although still possibly a seizure. Patient was advised to return to ER for emergency. On discharge, he was continued on Keppra, to follow-up outpatient with neuro. DISCHARGE MEDICATIONS: Please see below. ALLERGIES: Please see below. PHYSICAL EXAMINATION ON DISCHARGE: VITAL SIGNS: Please see below. General: NAD, fully conversant, resting comfy HEENT: NC, AT, EOMI, neck supple full ROM CV: RRR, no murmurs Lungs: expiratory wheezing with scattered rhonchi. Dry cough on inhalation & with speaking. No rales or accessory muscle use. Abdomen: Soft, nondistended and nontender Extremities: No edema or tenderness LABORATORY DATA: Please see below. IMAGING: * 08/13/18 CXR: There cardiomegaly with vascular congestion. There appears to be mild interstitial edema. There are small bilateral effusions. Findings appear improved compared to the prior study. Mediastinal silhouette is unchanged. Multiple sternal wires are present. * 08/13/[address]: Heavy vascular calcification. Diffuse cerebral atrophy. Small vessel changes. Old bilateral lacunar infarcts in the basal ganglia. No acute intracranial abnormality. * 08/13/18 [facility] MRI: Incomplete exam. Only diffusion weighted sequence acquired. No evidence to suggest acute ischemia. PROGNOSIS: fair ACTIVITY: As tolerated. DIET: low fat, low cholesterol DISPOSITION: Acute Rehab Facility. DISCHARGE INSTRUCTIONS: 1. F/U with PCP in 1 week, with Neuro in 2-3 weeks, continue HD schedule 2. Return to ER for emergency DISCHARGE CONDITION: Stable. TIME SPENT ON DISCHARGE: Greater than 35 minutes. Vital Signs/I&Os Vital Signs Date Time Temp Pulse Resp B/P (MAP) Pulse Ox O2 Delivery O2 Flow Rate FiO2 08/15/18 14:00 97.5 89 20 159/88 (111) 95 08/13/18 17:30 2.0 08/13/18 10:15 Non-Rebreather I&O- Last 24 Hours up to 6 AM 08/15/18 06:00 Intake Total 1472.5 ml Output Total 1030 ml Balance 442.5 ml Laboratory Data Labs 24H Laboratory Tests 2 08/14/18 20:45: Bedside Glucose (Misc Panel) 178H 08/15/18 06:01: Immature Granulocyte % (Auto) 0.4, White Blood Count 4.8, Red Blood Count 2.64L, Hemoglobin 8.1L, Hematocrit 26.3L, Mean Corpuscular Volume 99.6H, Mean C orpuscular Hemoglobin 30.7, Mean Corpuscular Hemoglobin Concent 30.8L, Red Cell Distribution Width 15.3H, Platelet Count 121L, Neutrophils (%) (Auto) 67.6H, Lymphocytes (%) (Auto) 18.9L, Monocytes (%) (Auto) 9.4H, Eosinophils (%) (Auto) 3.1H, Basophils (%) (Auto) 0.6, Neutrophils # (Auto) 3.3, Lymphocytes # (Auto) 0.9L, Monocytes # (Auto) 0.5, Eosinophils # (Auto) 0.2, Basophils # (Auto) 0.0, Nucleated Red Blood Cells % (auto) 0.0, Anion Gap 7L, Glomerular Filtration Rate 12.0L, Blood Urea Nitrogen 25#H, Creatinine 5.11H, Sodium Level 136, Potassium Level 4.0, Chloride Level 101, Carbon Dioxide Level 28, Calcium Level 8.6L, Aspartate Amino Transf (AST/SGOT) 18, Alanine Aminotransferase (ALT/SGPT) 14, Alkaline Phosphatase 64, Total Bilirubin 0.3, Total Protein 7.0, Albumin 2.9L, Magnesium Level 2.2, C-Reactive Protein, Quantitative 6.75H, Albumin/Globulin Ratio 0.71L 08/15/18 11:31: Bedside Glucose (Misc Panel) 98 CBC/BMP Laboratory Tests 08/15/18 06:01 Red Blood Count 2.64 L, Mean Corpuscular Volume 99.6 H, Mean Corpuscular Hemoglobin 30.7, Mean Corpuscular Hemoglobin Concent 30.8 L, Red Cell Distribution Width 15.3 H, Neutrophils (%) (Auto) 67.6 H, Lymphocytes (%) (Auto) 18.9 L, Monocytes (%) (Auto) 9.4 H, Eosinophils (%) (Auto) 3.1 H, Basophils (%) (Auto) 0.6, Neutrophils # (Auto) 3.3, Lymphocytes # (Auto) 0.9 L, Monocytes # (Auto) 0.5, Eosinophils # (Auto) 0.2, Basophils # (Auto) 0.0, Calcium Level 8.6 L, Aspartate Amino Transf (AST/SGOT) 18, Alanine Aminotransferase (ALT/SGPT) 14, Alkaline Phosphatase 64, Total Bilirubin 0.3, Total Protein 7.0, Albumin 2.9 L FSBS Laboratory Tests Test 08/14/18 20:45 08/15/18 11:31 Range/Units Bedside Glucose (Misc Panel) 178 98 80-115 MG/DL Discharge Medications Scheduled Amlodipine Besylate (Amlodipine Besylate) 2.5 Mg Tablet, 2.5 MG PO QHS, (Reported) Benzonatate (Benzonatate) 100 Mg Capsule, 200 MG PO TID Calcitriol (Calcitriol) 0.25 Mcg Cap, 0.25 MCG PO 3XW, (Reported) RECEIVES AT DIALYSIS ON MON, MON, MON Calcium Carbonate (Tums Ultra) 1,000 Mg Chw, 1,000 MG PO WM, (Reported) Carvedilol (Carvedilol) 12.5 Mg Tablet, 12.5 MG PO BID, (Reported) Cetirizine HCl (Cetirizine HCl) 10 Mg Tablet, 10 MG PO DAILY, (Reported) Clopidogrel Bisulfate (Clopidogrel) 75 Mg Tab, 75 MG PO DAILY, (Reported) Ergocalciferol (Vitamin D2) (Vitamin D2) 50,000 Unit Cap, 50,000 UNIT PO 1XWK, (Reported) TAKES ON WEDNESDAYS Fluticasone Propion/Salmeterol (Advair Hfa 230-21 Mcg Inhaler) 12 Gm Hfa.aer.ad, 2 PUFF INH BID, (Reported) Folic Acid/Vit B Complex and C (Radha-Haja Tablet) 1 Tab Tab, 1 TAB PO DAILY, (Reported) Gabapentin (Neurontin) 100 Mg Capsule, 100 MG PO BID, (Reported) Insulin Human NPH (Humulin N) 100 Unit/1 Ml Vial, 1 DOSE SC DAILY, (Reported) SLIDING SCALE; REPORTED USUALLY BETWEEN 2 AND 4 UNITS Levetiracetam (Keppra) 250 Mg Tablet, 250 MG PO BID after HD of HD days Pantoprazole Sodium (Protonix) 40 Mg Tab, 40 MG PO DAILY, (Reported) Rosuvastatin Calcium (Rosuvastatin Calcium) 10 Mg Tablet, 10 MG PO QHS, (Reported) Sevelamer Carbonate (Renvela) 800 Mg Tab, 1,600 MG PO WM, (Reported) Scheduled PRN Acetaminophen (Acetaminophen) 500 Mg Tablet, 1,000 MG PO QID PRN for PAIN, (Reported) Albuterol Sulfate (Proair Hfa) 8.5 Gm Hfa.aer.ad, 2 PUFF INH Q4H PRN for SOB/WHEEZING, (Reported) Allergies Coded Allergies: aspirin (Verified Allergy, Severe, CLOSES AIRWAY, 06/15/18) GME ATTESTATION GME ATTESTATION I saw and evaluated the patient. I agree with the findings and plan of care as documented in the documenters note. I spent 45 minutes coordinating this patient's discharge. BEREKET JUAREZ DO Aug 15, 2018 18:51 CHIOMA HOLMAN MD Aug 29, 2018 15:54
--- NOTE | 2018-09-20 08:37 | REPIR ---
DATE OF PROCEDURE: 08/13/2018 PREOPERATIVE DIAGNOSES: End-stage to the diabetes mellitus, nonhealing right foot ulcer. POSTOPERATIVE DIAGNOSES: End-stage to the diabetes mellitus, nonhealing right foot ulcer. PROCEDURE: Left common femoral arterial cannulation. Selective, right common femoral artery catheter placement, right lower extremity angiogram. Selective right superficial femoral artery placement, right lower extremity angiogram. Selective right popliteal artery catheter placement, right lower extremity angiogram. Selective right anterior tibial artery catheter placement right lower extremity angiogram. Right popliteal artery atherectomy with a Jetstream 1.85 catheter. Right anterior tibial atherectomy with Jetstream 1.85 catheter. Right popliteal artery angioplasty with 3.5 x 200 mm balloon. Right anterior tibial artery angioplasty with 3.5 x 120 mm balloon. MYNX closure of the left common femoral arteriotomy. SURGEON: Dr. Maddy Blank. CIRCULATING PROCESS INSPECTOR: Savanah Pena. ANESTHESIA: Local with sedation with 2 mg of Versed, 100 mcg fentanyl and 10 mL of 2% lidocaine mixed with 0.5% Marcaine. Benadryl mg. FLUORO TIME: 6.4 minutes. CONTRAST: 6 mL of Isovue-300. SEDATION TIME: From 8:09 a.m. to 9:14 a.m. for total of 65 minutes. HEPARIN: 7000 units, protamine 50 mg. COMPLICATIONS: None. DRAINS: None. SPECIMEN: None. IMPLANTS: Left common femoral arteriotomy closure with a MYNX closure device. INDICATION: The patient is a 68-year-old male with end-stage renal disease and diabetes mellitus and nonhealing right foot ulcer with severe right lower extremity femoral popliteal and tibioperoneal atherosclerotic arterial occlusive disease. The patient will undergo an angiogram with possible angioplasty stent and/or atherectomy. DESCRIPTION OF PROCEDURE: The patient was taken to the angiography suite, placed supine on the angiography room table and then prepped and draped in a standard surgical fashion. The left common femoral artery was cannulated using a micropuncture needle after anesthetizing the overlying skin and subcutaneous tissue. The micropuncture wire was advanced through the micropuncture needle, which was upsized to a micropuncture sheath. A Bentson wire was advanced through the micropuncture needle, which was upsized to a 5-Indonesian sheath. An Omni Flush catheter was advanced up and over the bifurcation and placed in the right common femoral artery and an angiogram was performed. This was advanced into the right superficial femoral artery and an angiogram was performed. Catheter was advanced into the right popliteal artery and an angiogram was performed showing severe disease in the below-knee popliteal artery and right anterior tibial artery. The 5-Indonesian sheath was exchanged for a short 6-Indonesian sheath followed by 7-Indonesian sheath and 7-Indonesian destination sheath, which was brought up over the bifurcation of the iliac arteries and placed in the right superficial femoral artery. The right popliteal and anterior tibial artery were recannulated, after which atherectomy was performed of the right popliteal and anterior tibial artery using the Jetstream 1.85 catheter. The right popliteal artery was then angioplasty with a 3.5 x 220 mm balloon. The right anterior tibial artery was angioplasty with a 3.5 x 220 mm balloon. Completion angiography showed resolution of the stenosis with good flow to the popliteal artery into the anterior tibial artery distally. Catheters and wires were removed and a MYNX closure was used close the arteriotomy in the left common femoral artery with an additional 10 minutes of adjunctive pressure applied for hemostasis. Dressings were then applied. The patient tolerated procedure well. All instrument, sponge and needle counts were correct at the end the case. There were no complications. Dr Blank was present for and directed the entire case. The patient was transferred to the holding area subsequent discharged.
== END 2018-08-15 17:30 | DRG 252 ==
LOC: M IRPRO 06:43 → M ICU 09:25 → M MSPAV 08-14 16:49
PROVIDERS: ADMIT Internal Medicine; ATTEND Internal Medicine
PROC: 04CM0Z6 (ICD-10-PCS; principal; 2018-08-13)
PROC: [UNRECOGNIZED PROCEDURE] (2018-08-13)
PROC: 047 Lower Arteries, Dilation (ICD-10-PCS; 2018-08-13)
PROC: 5A1D70Z Performance of Urinary Filtration, Intermittent, Less than 6 Hours Per Day (ICD-10-PCS; 2018-08-14)
DX: I97.121 Postprocedural cardiac arrest following other surgery (principal); N18.6 End stage renal disease; J96.01 Acute respiratory failure with hypoxia; G93.41 Metabolic encephalopathy; G93.40 Encephalopathy, unspecified; I50.42 Chronic combined systolic (congestive) and diastolic (congestive) heart failure; L97.929 Non-pressure chronic ulcer of unspecified part of left lower leg with unspecified severity; E87.2 Acidosis; N25.81 Secondary hyperparathyroidism of renal origin; Z99.2 Dependence on renal dialysis; Z66 Do not resuscitate; E11.42 Type 2 diabetes mellitus with diabetic polyneuropathy; D63.1 Anemia in chronic kidney disease; E11.22 Type 2 diabetes mellitus with diabetic chronic kidney disease; G25.3 Myoclonus; I25.10 Atherosclerotic heart disease of native coronary artery without angina pectoris; M21.372 Foot drop, left foot; N40.0 Benign prostatic hyperplasia without lower urinary tract symptoms; I69.398 Other sequelae of cerebral infarction; E11.622 Type 2 diabetes mellitus with other skin ulcer; E11.621 Type 2 diabetes mellitus with foot ulcer; L97.529 Non-pressure chronic ulcer of other part of left foot with unspecified severity; E11.51 Type 2 diabetes mellitus with diabetic peripheral angiopathy without gangrene; Z95.820 Peripheral vascular angioplasty status with implants and grafts; Z88.6 Allergy status to analgesic agent; Z79.4 Long term (current) use of insulin; Z79.899 Other long term (current) drug therapy; Z98.41 Cataract extraction status, right eye; Z98.42 Cataract extraction status, left eye; Z89.422 Acquired absence of other left toe(s); Z90.49 Acquired absence of other specified parts of digestive tract

== ENCOUNTER 2018-08-15 14:51 | Inpatient (IN) | payer MEDICARE, OTHER ==
[~2018-08-15] VITALS: Ht 172.7 cm; Wt 76.3 kg
[~2018-08-15 14:51] MED LIST changes: +BENZ-18 PO; +GUAISYP5 PO; +LEVO250T12 PO
[2018-08-15] MEDS ORDERED: KEPP250T5 PO (15:05)
[2018-08-15] MEDS ORDERED: guaiFENesin SYRUP 200 MG/10 ML UDC PO PRN (15:15)
[2018-08-15] MEDS ORDERED: ACETAMINOPHEN TAB 650MG DOSE (2X325MG) PO PRN (15:15)
[2018-08-15] MEDS ORDERED: GLUCAGON FOR INJ 1 MG VIAL (J1610) SC PRN (15:15)
[2018-08-15] MEDS ORDERED: GLUCOSE 4 GM CHEW TABLET PO PRN (15:15)
[2018-08-15] MEDS ORDERED: CALCIUM CARBONATE 500 MG CHEW U/D PO PRN (15:15)
[2018-08-15] MEDS ORDERED: ONDANSETRON 4 MG TAB (S0181) PO PRN (15:15)
[2018-08-15] MEDS ORDERED: DEXTROSE 50% 50 ML SYRINGE IV PRN (15:15)
[2018-08-15] MEDS ORDERED: BISACODYL 10 MG SUPP PR PRN (15:15)
[2018-08-15] MEDS ORDERED: IPRATROPIUM 0.5MG/ALBUTEROL 2.5MG INH SOL UD 3ML (DUONEB)(J7620) NEB PRN (15:15)
[2018-08-15] MEDS ORDERED: BENZ-18 PO (15:31)
[2018-08-15] MEDS ORDERED: GUAISYP5 PO (15:31)
[2018-08-15] MEDS: ALBUTEROL SULFATE 2.5 MG/0.5 ML INH NEB SOLN NEB SCH ×3 (16:00→23:52)
[2018-08-15 17:51] VITALS: BP 150/76
[2018-08-15] MEDS: BENZONATATE 100 MG CAP PO SCH ×2 (18:47→21:25)
[2018-08-15] MEDS: HumaLOG INSULIN (NovoLOG) PER UNIT SC SCH ×2 (18:48→21:00)
[2018-08-15] MEDS: (RENVELA) SEVELAMER **CARBONate** 800 MG TAB PO SCH (18:48)
[2018-08-15] MEDS: ADVAIR HFA 230/21MCG INHALER INH SCH (20:07)
[2018-08-15 21:00] VITALS: BP 158/78
[2018-08-15] MEDS: DOCUSATE SODIUM 100 MG CAP PO SCH (21:00)
[2018-08-15] MEDS: SENNA 8.6 MG TAB (SENOKOT) PO SCH (21:00)
[2018-08-15] MEDS: FLUTICASONE PROP 0.05% NASAL SPRAY 16 GM (FLONASE) NARES SCH (21:25)
[2018-08-15] MEDS: ROSUVASTATIN 10 MG TAB (CRESTOR) PO SCH (21:25)
[2018-08-15] MEDS: BOUDREAUX'S BUTT PASTE TOP SCH (21:25)
[2018-08-15] MEDS: GABAPENTIN 100 MG CAP PO SCH (21:25)
[2018-08-15] MEDS: HEPARIN SOD (PORCINE) 5000 UNITS/ML VIAL SC SCH (21:25)
[2018-08-15] MEDS: CARVedilol 12.5 MG TAB PO SCH (21:26)
[2018-08-16] MEDS: ALBUTEROL SULFATE 2.5 MG/0.5 ML INH NEB SOLN NEB SCH ×2 (04:00→07:13)
[2018-08-16 06:00] VITALS: BP 158/76
[2018-08-16] MEDS: HEPARIN SOD (PORCINE) 5000 UNITS/ML VIAL SC SCH ×3 (06:21→21:34)
[2018-08-16] MEDS: LevoFLOXacin 250 MG TABLET PO SCH (06:21)
[2018-08-16 06:28] LABS: BASO % 0.8 % (0.0-1.0); EOS # 0.2 10^3/uL (0.0-0.50); EOS % 3.2 % (0.0-3.0); HEMATOCRIT 27.3 % (42.0-52.0); HEMOGLOBIN 8.4 g/dl (13.5-17.5); LYMPH % 18.9 % (24.0-44.0); MEAN CORPUSCULAR HEMOGLOBIN 30.8 pg (27.0-33.0); MEAN CORPUSCULAR HGB CONC 30.8 g/dl (32.0-36.5); MONO # 0.5 10^3/uL (0.0-0.8); MONO % 9.3 % (0.0-5.0); NEUTROPHILS # 3.6 10^3/uL (1.8-7.7); NEUTROPHILS % 67.4 % (36.0-66.0); PLATELET COUNT, AUTOMATED 132 10^3/uL (150-450); RED BLOOD COUNT 2.73 10^6/uL (4.30-6.10); WHITE BLOOD COUNT 5.3 10^3/uL (4.0-10.0)
[2018-08-16 06:54] LABS: BILIRUBIN,TOTAL 0.5 MG/DL (0.2-1.0); CALCIUM LEVEL 9.3 MG/DL (8.8-10.2); CREATININE FOR GFR 6.74 MG/DL (0.70-1.30); GLOMERULAR FILTRATION RATE 8.7 (>49); POTASSIUM SERUM 4.2 MEQ/L (3.5-5.1); TOTAL PROTEIN 7.5 GM/DL (6.4-8.2)
[2018-08-16] MEDS: ADVAIR HFA 230/21MCG INHALER INH SCH ×2 (07:14→21:10)
[2018-08-16] MEDS: HumaLOG INSULIN (NovoLOG) PER UNIT SC SCH ×4 (07:30→21:00)
--- NOTE | 2018-08-16 07:54 | IPNPDOC ---
Text Note Date of Service The patient was seen on 08/16/18. NOTE Subjective: Reports persistent cough, causing some SOB, denies chills, fever, chest pain, SOB Objective GENERAL: NAD SKIN : Warm, dry intact HEENT: Atraumatic, normocephalic, PERRL, moist mucous membrane CARDIOVASCULAR: Regular rate and rhythm, S1S2, no JVD, no edema, distal pulses + and palpable RESP: Coarse inspiratory wheezes in all lung pena with cough, mild accessory muscle use noted ABDOMEN: BS+ non distended non tender MS: no joint deformities NEURO: Alert and oriented x 3, CN2-12 grossly intact PSYCH: no anxiety or agitation, appropriate mood and affect. Assessment/Plan Acute hypoxic respiratory failure -recent cardiac resuscitation, admission and discharge from medical unit -currently in rehabilitation for debility -still compromised respiratory hinson -scheduled bronchodilator therapy -limited options for volume removal except by dialysis -limit fluid intake daily ESRD on HD (MWF) - Nephrology called on consultation - appreciate input -hemodialysis management Type 2 diabetes mellitus -Caloric controlled diabetic diet -Finger stick checks prior to meals and at bedtime -Coverage with insulin per sliding scale protocol Peripheral neuropathy - on Gabapentin CAD s/p CABG (2017) - Currently without angina -Continue CAD risk factor modifications with statin, Plavix , patient is allergic to aspirin Combined heart failure with acute exacerbation -Ejection fraction 40% -Fluid restriction 1500 mL a day -Hemodialysis as scheduled by nephrology -Cardiac diet -Scheduled bronchodilator therapy PAD -Status post left lower extremity angioplasty -Continue Plavix and statin -Continue other risk factor modifications DVT prophylaxis - Heparin Advanced Care planning -Code status: DNR / DNI VS,Fishbone, I+O VS, Fishbone, I+O Laboratory Tests 08/16/18 06:03 Red Blood Count 2.73 L, Mean Corpuscular Volume 100.0 H, Mean Corpuscular Hemoglobin 30.8, Mean Corpuscular Hemoglobin Concent 30.8 L, Red Cell Distribution Width 15.5 H, Neutrophils (%) (Auto) 67.4 H, Lymphocytes (%) (Auto) 18.9 L, Monocytes (%) (Auto) 9.3 H, Eosinophils (%) (Auto) 3.2 H, Basophils (%) (Auto) 0.8, Neutrophils # (Auto) 3.6, Lymphocytes # (Auto) 1.0 L, Monocytes # (Auto) 0.5, Eosinophils # (Auto) 0.2, Basophils # (Auto) 0.0, Calcium Level 9.3, Aspartate Amino Transf (AST/SGOT) 14, Alanine Aminotransferase (ALT/SGPT) 15, Alkaline Phosphatase 72, Total Bilirubin 0.5 #, Total Protein 7.5, Albumin 3.0 L Vital Signs Date Time Temp Pulse Resp B/P (MAP) Pulse Ox O2 Delivery O2 Flow Rate FiO2 08/16/18 06:00 98.2 85 18 158/76 (103) 98 I&O- Last 24 Hours up to 6 AM 08/16/18 06:00 Intake Total 120 ml Output Total 2000 ml Balance -1880 ml JODI DAVIS FIRER HELPER Aug 16, 2018 07:54
[2018-08-16] MEDS: PANTOPRAZOLE 40MG TAB (PROTONIX) PO SCH (08:58)
[2018-08-16] MEDS: CARVedilol 12.5 MG TAB PO SCH ×2 (08:58→21:33)
[2018-08-16] MEDS: (RENVELA) SEVELAMER **CARBONate** 800 MG TAB PO SCH ×3 (08:58→18:00)
[2018-08-16] MEDS: CETIRIZINE (ZyrTEC) 10 MG TAB PO SCH (08:58)
[2018-08-16] MEDS: GABAPENTIN 100 MG CAP PO SCH ×2 (08:58→21:33)
[2018-08-16] MEDS: CLOPIDOGREL 75 MG TAB PO SCH (08:58)
[2018-08-16] MEDS: BENZONATATE 100 MG CAP PO SCH ×3 (08:58→21:32)
[2018-08-16] MEDS: DOCUSATE SODIUM 100 MG CAP PO SCH ×2 (08:59→21:00)
[2018-08-16] MEDS: BOUDREAUX'S BUTT PASTE TOP SCH ×2 (08:59→21:34)
[2018-08-16] MEDS: FLUTICASONE PROP 0.05% NASAL SPRAY 16 GM (FLONASE) NARES SCH ×2 (08:59→21:34)
--- NOTE | 2018-08-16 10:17 | HPEPDOC ---
Automation Controls Specialist Note DATE OF ADMISSION: Aug 15, 2018 at 17:25 SOURCE OF ADMISSION INFORMATION: patient and [facility] records CHIEF COMPLAINT: metabolic encephalopathy with peripheral neuropathy HISTORY OF PRESENT ILLNESS: 68M pmh ESRD on HD, DM2, CAD s/p CABG 218, multiple CVAs, diastolic and systolic CHF, BPH, diabetic and ischemic foot ulcers, PVD s/p stenting on the left who had cardiac arrest on August 13, 2018 while undergoing angiography of his right leg. He was resuscitated and witnessed to have seizure-like activity. CTH showed, Heavy vascular calcification. Diffuse cerebral atrophy. Small vessel changes. Old bilateral lacunar infarcts in the basal ganglia. No acute intracranial abnormality. MRI brain showed no acute infarcts. EEG was performed which was abnormal due to presence of generalized slowing and disorganization of background consistent with nonspecific diffuse cerebral dysfunction such as seen in moderately severe encephalopathy due to multiple potential causes including toxic, metabolic, medication related, infectious or multifocal structural brain abnormalities. No epileptiform abnormalities were seen. Neurology evaluated him and suggested Keppra to be dosed after dialysis, however this medication was ultimately discontinued. He was found to be fluid overloaded, with a cough, and treated with ZOsyn for suspected pneumonia and ultrafiltration dialysis. He was evaluated by therapy and found to have new impairments in mobility and ADLs below his prior level of function and deemed medically appropriate for discharge to ARU on August 15, 2018. REVIEW OF SYSTEMS: The following is a completed review of systems and has been reviewed. Review of systems otherwise unremarkable. PAIN: Patient self reports no pain EYES: no recent vision loss EARS, NOSE, & THROAT: denies dysphagia or throat pain CARDIOVASCULAR: denies chest pain or palpitations PULMONARY: Negative. Denies shortness of breath GASTROINTESTINAL: denies diarrhea/constipation GENITOURINARY: denies dysuria or hematuria MUSCULOSKELETAL: weakness in all 4 extremities NEUROLOGICAL: +mildly lethargic HEMATOLOGICAL: Negative SKIN: arterial/diabetic foot ulcers PSYCHIATRIC: Unremarkable All other review of systems found to be negative. PAST MEDICAL HISTORY: as per HPI PAST SURGICAL HISTORY:CABG multiple LE angiograms, cholecystectomy, RUE fistula, appendectomy MEDICATIONS: Please see below. FAMILY HISTORY: does not pertain to patient's current condition SOCIAL HISTORY:lives with , non-smoker, no ETOH, or illicit drugs DIET: renal PHYSICAL EXAMINATION: VITAL SIGNS: Please see below. GENERAL: Pleasant and cooperative. No acute distress. HEENT: PERRL. Extraocular movements intact. Clear conjunctiva CARDIOVASCULAR: Regular rate and rhythm. No murmurs, rubs, or gallops LUNGS: Clear to auscultation bilaterally. No wheezes. No rhonchi ABDOMEN: Soft, nontender, nondistended. Positive bowel sounds. Normal active bowel sounds NEUROLOGICAL: Alert and oriented times three, slow to respond Cranial nerves II through XII grossly intact. Sensation mildly diminished bilat LE in stocking pattern +babinksi bilat, brisk patellar reflexes EXTREMITIES: 4\5 strength bilateral upper extremities. 4\5 strength right lower extremity. 4/5 strength in left lower extremity. SKIN: sacrum without ulcers, bilateral toe ulcers and left lateral foot ulcer with scant serosanguineous drainage IMAGING: Imaging documentation personally reviewed by record FUNCTIONAL STATUS: Premorbid: Modified Independent with mobility household distances with RW, requiring assistance with ADLs On Admission: Mod-Total assist for functional transfers, Min assist for bed mobility, Max assist for ambulation with RW GOALS: Supervision for ambulation with RW household distances, supervision for grooming, dressing, toileting. Min-assist for bathing. Medical optimization, assess for new DME needs, caregiver training. ASSESSMENT:68-year-old M with past medical history of ESRD on HD with multiple CVAs who presents status post cardiac arrest with metabolic encephalopathy and w orsening peripheral neuropathy leading to mobility and ADL impairment. PLAN: 1. Rehab: PT- strengthen LE, improve proprioception and balance, maintain ROM of LE joints OT- strenghten UE and fine motor skills for optimal ADL managements, maintain ROM of UE joints SCIENTIFIC ILLUSTRATOR- cognitive evaluation in setting of recent metabolic encephalopathy 2. Neuro: pmh multiple strokes with new cognitive impairments following cardiac arrest, avoid deliriogenic agents, monitor for seizures, currently off anti-epileptics -continue statin and Plavix for secondary stroke prevention -peripheral and vascular neuropathy causing gait impairment 3. Resp: finishing up course of Levofloxacin for suspected pneumonia, c/u breathing treatments and cough suppressants 4. Cardiac: pmh CAD s/p CABG and PVD s/p multiple angiograms, c/u Plavix- f/u with Dr. Blank as outpatient -HTN- c/u BP meds, medicine consulted to assist in management - recent acute on chronic CHF, monitor for fluid overload, appears stable now 5. Endo: pmh DM with neuropathy, continue insulin coverage and ISS, adjust prn 6. Renal: ESRD on HD, c/u Sevelamer, renal consulted 7. DVT ppx: heparin and TEDs 8. GI ppx: Protonix 9. Skin: skin checks q-shift, cover toe ulcers with optifoam 10. Dispo: TBD 11. DNR POST ADMISSION PHYSICIAN EVALUATION: Medical and functional status: Description of medical status, medical assess ment: As above. Rehabilitation diagnosis and current and prior cold morbid medical conditions as above. Risk of complications and plans to mitigate them as above. Description of functional status current status is as above. Prior status as above. Status compared to preadmission: There are no clinically significant differences between the patient's current status and the information described on the preadmission screening document. Treatment plan anticipated: Treatment plan is as described above. Required disciplines including physical therapy, occupational therapy, others as noted above. Intensity of services: 3 hours a day, 6 days a week. Special considerations: There are no specific special or safety considerations that would likely preclude immediate implementation of an intensive reha bilitation program or subsequently influence the plan of care ATTESTATION: Considering all the information above, it is my best judgment that this patient requires intensive rehabilitation therapy as described above and an inpatient hospital environment due to the complexity of nursing, medical, and rehabilitation needs required by the patient. Furthermore, this patient can reasonably be expected to participate in an benefit from an inpatient rehabilitation stay with an interdisciplinary team approach to the delivery of rehabilitation care under the direction and supervision of rehabilitation physician. PROGNOSIS: Excellent. ESTIMATED LENGTH OF STAY:14-16 days. PROJECTED DISCHARGE DESTINATION: Home with family support and any durable medical equipment required to increase functional safety and mobility. TIME SPENT COUNSELING AND COORDINATING INITIAL CARE: Greater than 70 minutes. Vital Signs Vital Sign - Last 24 Hours 08/15/18 08/15/18 08/15/18 08/15/18 17:51 21:00 21:26 21:26 Temp 97.3 97.0 Pulse 91 88 88 88 Resp 19 18 B/P (MAP) 150/76 (100) 158/78 (104) 158/78 158/78 Pulse Ox 100 95 08/16/18 08/16/18 06:00 08:58 Temp 98.2 Pulse 85 85 Resp 18 B/P (MAP) 158/76 (103) 158/76 Pulse Ox 98 Laboratory Data CBC/BMP Laboratory Tests 08/16/18 06:03 Red Blood Count 2.73 L, Mean Corpuscular Volume 100.0 H, Mean Corpuscular Hemoglobin 30.8, Mean Corpuscular Hemoglobin Concent 30.8 L, Red Cell Distribution Width 15.5 H, Neutrophils (%) (Auto) 67.4 H, Lymphocytes (%) (Auto) 18.9 L, Monocytes (%) (Auto) 9.3 H, Eosinophils (%) (Auto) 3.2 H, Basophils (%) (Auto) 0.8, Neutrophils # (Auto) 3.6, Lymphocytes # (Auto) 1.0 L, Monocytes # (Auto) 0.5, Eosinophils # (Auto) 0.2, Basophils # (Auto) 0.0, Calcium Level 9.3, Aspartate Amino Transf (AST/SGOT) 14, Alanine Aminotransferase (ALT/SGPT) 15, Alkaline Phosphatase 72, Total Bilirubin 0.5 #, Total Protein 7.5, Albumin 3.0 L Labs 24H Laboratory Tests 2 08/15/18 18:31: Bedside Glucose (Misc Panel) 150H 08/15/18 20:20: Bedside Glucose (Misc Panel) 189H 08/16/18 06:03: Immature Granulocyte % (Auto) 0.4, White Blood Count 5.3, Red Blood Count 2.73L, Hemoglobin 8.4L, Hematocrit 27.3L, Mean Corpuscular Volume 100.0H, Mean Corpuscular Hemoglobin 30.8, Mean Corpuscular Hemoglobin Concent 30.8L, Red Cell Distribution Width 15.5H, Platelet Count 132L, Neutrophils (%) (Auto) 67.4H, Lymphocytes (%) (Auto) 18.9L, Monocytes (%) (Auto) 9.3H, Eosinophils (%) (Auto) 3.2H, Basophils (%) (Auto) 0.8, Neutrophils # (Auto) 3.6, Lymphocytes # (Auto) 1.0L, Monocytes # (Auto) 0.5, Eosinophils # (Auto) 0.2, Basophils # (Auto) 0.0, Nucleated Red Blood Cells % (auto) 0.0, Anion Gap 6L, Glomerular Filtration Rate 8.7L, Blood Urea Nitrogen 35H, Creatinine 6.74H, Sodium Level 137, Potassium Level 4.2, Chloride Level 102, Carbon Dioxide Level 29, Calcium Level 9.3, Aspartate Amino Transf (AST/SGOT) 14, Alanine Aminotransferase (ALT/SGPT) 15, Alkaline Phosphatase 72, Total Bilirubin 0.5#, Total Protein 7.5, Albumin 3.0L, Albumin/Globulin Ratio 0.67L 08/16/18 06:16: Bedside Glucose (Misc Panel) 116H FSBS Laboratory Tests Test 08/15/18 18:31 08/15/18 20:20 08/16/18 06:16 Range/Units Bedside Glucose (Misc Panel) 150 189 116 80-115 MG/DL Home Medications Scheduled Amlodipine Besylate (Amlodipine Besylate) 2.5 Mg Tablet, 2.5 MG PO QHS, (Reported) Benzonatate (Benzonatate) 100 Mg Capsule, 200 MG PO TID Calcitriol (Calcitriol) 0.25 Mcg Cap, 0.25 MCG PO 3XW, (Reported) RECEIVES AT DIALYSIS ON MON, MON, MON Calcium Carbonate (Tums Ultra) 1,000 Mg Chw, 1,000 MG PO WM, (Reported) Carvedilol (Carvedilol) 12.5 Mg Tablet, 12.5 MG PO BID, (Reported) Cetirizine HCl (Cetirizine HCl) 10 Mg Tablet, 10 MG PO DAILY, (Reported) Clopidogrel Bisulfate (Clopidogrel) 75 Mg Tab, 75 MG PO DAILY, (Reported) Ergocalciferol (Vitamin D2) (Vitamin D2) 50,000 Unit Cap, 50,000 UNIT PO 1XWK, (Reported) TAKES ON WEDNESDAYS Fluticasone Propion/Salmeterol (Advair Hfa 230-21 Mcg Inhaler) 12 Gm Hfa.aer.ad, 2 PUFF INH BID, (Reported) Folic Acid/Vit B Complex and C (Radha-Haja Tablet) 1 Tab Tab, 1 TAB PO DAILY, (Reported) Gabapentin (Neurontin) 100 Mg Capsule, 100 MG PO BID, (Reported) Insulin Human NPH (Humulin N) 100 Unit/1 Ml Vial, 1 DOSE SC DAILY, (Reported) SLIDING SCALE; REPORTED USUALLY BETWEEN 2 AND 4 UNITS Levetiracetam (Keppra) 250 Mg Tablet, 250 MG PO BID after HD of HD days Levofloxacin (Levofloxacin) 250 Mg Tablet, 250 MG PO DAILY Pantoprazole Sodium (Protonix) 40 Mg Tab, 40 MG PO DAILY, (Reported) Rosuvastatin Calcium (Rosuvastatin Calcium) 10 Mg Tablet, 10 MG PO QHS, (Reported) Sevelamer Carbonate (Renvela) 800 Mg Tab, 1,600 MG PO WM, (Reported) Scheduled PRN Acetaminophen (Acetaminophen) 500 Mg Tablet, 1,000 MG PO QID PRN for PAIN, (Reported) Albuterol Sulfate (Proair Hfa) 8.5 Gm Hfa.aer.ad, 2 PUFF INH Q4H PRN for SOB/WHEEZING, (Reported) Guaifenesin/Dextromethorphan (Guaifenesin Dm Syrup) 120 Ml Syrup, 10 ML PO Q4HP PRN for COUGH Allergies Coded Allergies: aspirin (Verified Allergy, Severe, CLOSES AIRWAY, 06/15/18) A-FIB/CHADSVASC A-FIB History Current/History of A-Fib/PAF?: No SHANNAN OLMOS MD Aug 16, 2018 10:17
[2018-08-16] MEDS ORDERED: IPRATROPIUM 0.5MG/ALBUTEROL 2.5MG INH SOL UD 3ML (DUONEB)(J7620) NEB PRN (11:00)
[2018-08-16] MEDS: IPRATROPIUM 0.5MG/ALBUTEROL 2.5MG INH SOL UD 3ML (DUONEB)(J7620) NEB SCH ×3 (11:45→23:46)
[2018-08-16] MEDS: guaiFENesin/CODEINE SYRUP 5 ML UDC PO SCH ×2 (12:14→21:34)
[2018-08-16] MEDS ORDERED: DARBEPOETIN 100 MCG/0.5 ML *DIALYSIS* SYRINGE (J0882) IV SCH (12:45)
[2018-08-16 14:00] VITALS: BP 120/58
[2018-08-16 14:21] LABS: PERCENT SATURATION 19.2 % (19.7-50.0)
--- NOTE | 2018-08-16 14:44 | IPNPDOC ---
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 He will not get a PEG and wants to be able to eat for pleasure. He understands the risks of aspiration, but states he is DNR and would like to be able to keep eating. He is open to getting speech therapy to improve his diet and he agrees to eat a modified diet while here. He reports having this cough ever since his last hospitalization and that it is not any worse now. REVIEW OF SYSTEMS: The following is a completed review of systems and has been reviewed. Review of systems otherwise unremarkable. PAIN: Patient self reports no pain EYES: no recent vision loss EARS, NOSE, & THROAT: denies dysphagia or throat pain CARDIOVASCULAR: denies chest pain or palpitations PULMONARY: Negative. Denies shortness of breath, +cough GASTROINTESTINAL: denies diarrhea/constipation GENITOURINARY: denies dysuria or hematuria MUSCULOSKELETAL: weakness in all 4 extremities NEUROLOGICAL: mild cognitive decline HEMATOLOGICAL: Negative SKIN: arterial/diabetic foot ulcers PSYCHIATRIC: Unremarkable All other review of systems found to be negative. PHYSICAL EXAMINATION: VITAL SIGNS: Please see below. GENERAL: Pleasant and cooperative. No acute distress. HEENT: PERRL. Extraocular movements intact. Clear conjunctiva CARDIOVASCULAR: Regular rate and rhythm. No murmurs, rubs, or gallops LUNGS: Clear to auscultation bilaterally. No wheezes. No rhonchi ABDOMEN: Soft, nontender, nondistended. Positive bowel sounds. Normal active bowel sounds NEUROLOGICAL: Alert and oriented times three, slow to respond Cranial nerves II through XII grossly intact. Sensation mildly diminished bilat LE in stocking pattern +babinksi bilat, brisk patellar reflexes EXTREMITIES: 4\5 strength bilateral upper extremities. 4\5 strength right lower extremity. 4/5 strength in left lower extremity. SKIN: sacrum without ulcers, bilateral toe ulcers and left lateral foot ulcer with scant serosanguineous drainage GOALS: Supervision for ambulation with RW household distances, supervision for grooming, dressing, toileting. Min-assist for bathing. Medical optimization, assess for new DME needs, caregiver training. ASSESSMENT:68-year-old M with past medical history of ESRD on HD with multiple CVAs who presents status post cardiac arrest with metabolic encephalopathy and worsening peripheral neuropathy leading to mobility and ADL impairment. PLAN: 1. 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 Neuro: pmh multiple strokes with new cognitive impairments following cardiac arrest, avoid deliriogenic agents, monitor for seizures, currently off anti-ep ileptics, recent EEG negative for seizure activity -continue statin and Plavix for secondary stroke prevention -peripheral and vascular neuropathy causing gait impairment 3. Resp: finishing up course of Levofloxacin for suspected pneumonia, c/u breathing treatments and cough suppressants 4. Cardiac: pmh CAD s/p CABG and PVD s/p multiple angiograms, c/u Plavix- f/u with Dr. Blank as outpatient -HTN- c/u BP meds, medicine consulted to assist in management - recent acute on chronic CHF, monitor for fluid overload, appears stable now 5. Endo: pmh DM with neuropathy, continue insulin coverage and ISS, adjust prn 6. Renal: ESRD on HD, c/u Sevelamer, renal consulted 7. DVT ppx: heparin and TEDs 8. GI ppx: Protonix 9. Skin: skin checks q-shift, cover toe ulcers with optifoam- will f/u with Dr. Blue 10. Dispo: TBD 11. DNR Allergies Coded Allergies: aspirin (Verified Allergy, Severe, CLOSES AIRWAY, 06/15/18) Vital Signs Vital Signs Date Time Temp Pulse Resp B/P (MAP) Pulse Ox O2 Delivery O2 Flow Rate FiO2 08/16/18 14:00 98.1 72 18 120/58 (78) 99 Laboratory Data CBC/BMP Laboratory Tests 08/16/18 06:03 Red Blood Count 2.73 L, Mean Corpuscular Volume 100.0 H, Mean Corpuscular Hemoglobin 30.8, Mean Corpuscular Hemoglobin Concent 30.8 L, Red Cell Distrib ution Width 15.5 H, Neutrophils (%) (Auto) 67.4 H, Lymphocytes (%) (Auto) 18.9 L, Monocytes (%) (Auto) 9.3 H, Eosinophils (%) (Auto) 3.2 H, Basophils (%) (Auto) 0.8, Neutrophils # (Auto) 3.6, Lymphocytes # (Auto) 1.0 L, Monocytes # (Auto) 0.5, Eosinophils # (Auto) 0.2, Basophils # (Auto) 0.0, Calcium Level 9.3, Aspartate Amino Transf (AST/SGOT) 14, Alanine Aminotransferase (ALT/SGPT) 15, Alkaline Phosphatase 72, Total Bilirubin 0.5 #, Total Protein 7.5, Albumin 3.0 L Labs 24H Laboratory Tests 2 08/15/18 18:31: Bedside Glucose (Misc Panel) 150H 08/15/18 20:20: Bedside Glucose (Misc Panel) 189H 08/16/18 06:03: Immature Granulocyte % (Auto) 0.4, White Blood Count 5.3, Red Blood Count 2.73L, Hemoglobin 8.4L, Hematocrit 27.3L, Mean Corpuscular Volume 100.0H, Mean Corpuscular Hemoglobin 30.8, Mean Corpuscular Hemoglobin Concent 30.8L, Red Cell Distribution Width 15.5H, Platelet Count 132L, Neutrophils (%) (Auto) 67.4H, Lymphocytes (%) (Auto) 18.9L, Monocytes (%) (Auto) 9.3H, Eosinophils (%) (Auto) 3.2H, Basophils (%) (Auto) 0.8, Neutrophils # (Auto) 3.6, Lymphocytes # (Auto) 1.0L, Monocytes # (Auto) 0.5, Eosinophils # (Auto) 0.2, Basophils # (Auto) 0.0, Nucleated Red Blood Cells % (auto) 0.0, Anion Gap 6L, Glomerular Filtration Rate 8.7L, Blood Urea Nitrogen 35H, Creatinine 6.74H, Sodium Level 137, Potassium Level 4.2, Chloride Level 102, Carbon Dioxide Level 29, Calcium Level 9.3, Aspartate Amino Transf (AST/SGOT) 14, Alanine Aminotransferase (ALT/SGPT) 15, Alkaline Phosphatase 72, Total Bilirubin 0.5#, Total Protein 7.5, Albumin 3.0L, Iron Level 32L, Total Iron Binding Capacity 167L, Transferrin % Saturation 19.2L, Albumin/Globulin Ratio 0.67L 08/16/18 06:16: Bedside Glucose (Misc Panel) 116H 08/16/18 11:29: Bedside Glucose (Misc Panel) 132H Current Medications Current Medications Current Medications Acetaminophen (Tylenol Tab) 650 mg Q4HP PRN PO MILD PAIN (PS 1-4); Start 08/15/18 at 15:15 Albuterol Sulfate (Proventil Neb) 2.5 mg RQ4H NEB Last administered on 08/16/18at 04:00; Start 08/15/18 at 16:00; Stop 08/16/18 at 10:32; Status DC Albuterol/ Ipratropium (Duoneb (Ipr 0.5mg/Alb 2.5mg)) 3 ml Q2HP PRN NEB SOB/WHEEZING; Start 08/16/18 at 11:00 Albuterol/ Ipratropium (Duoneb (Ipr 0.5mg/Alb 2.5mg)) 3 ml Q6HP PRN NEB SOB/WHEEZING; Start 08/15/18 at 15:15; Stop 08/16/18 at 10:32; Status DC Albuterol/ Ipratropium (Duoneb (Ipr 0.5mg/Alb 2.5mg)) 3 ml RQ4H NEB Last administered on 08/16/18at 11:45; Start 08/16/18 at 12:00 Amlodipine Besylate (Norvasc) 2.5 mg QHS PO Last administered on 08/15/18at 21:26; Start 08/15/18 at 21:00 Benzonatate (Tessalon Perles) 200 mg TID PO Last administered on 08/16/18at 14:13; Start 08/15/18 at 16:00 Bisacodyl (Dulcolax Suppository) [address] CONSTIPATION; Start 08/15/18 at 15:15 Calcium Carbonate (Tums) 1,000 mg Q4HP PRN PO HEARTBURN; Start 08/15/18 at 15:15 Carvedilol (COReg) 12.5 mg BID PO Last administered on 08/16/18at 08:58; Start 08/15/18 at 21:00 Cetirizine HCl (ZyrTEC) 10 mg DAILY PO Last administered on 08/16/18at 08:58; Start 08/16/18 at 09:00 Clopidogrel Bisulfate (PLAVix) 75 mg DAILY PO Last administered on 08/16/18at 08:58; Start 08/16/18 at 09:00 Codeine Phosphate/ Guaifenesin (Robitussin Ac) 5 ml Q12H PO Last administered on 08/16/18at 12:14; Start 08/16/18 at 09:00 Darbepoetin Donny (Aranesp (Dialysis Use)) 100 mcg HD IV ; Start 08/16/18 at 12:45 Dextrose (Dextrose 50%) 25 ml ASDIRECTED PRN IV SEE LABEL COMMENTS; Start 08/15/18 at 15:15 Docusate Sodium (Colace) 100 mg BID PO ; Start 08/15/18 at 21:00 Fluticasone Propionate (Flonase 0.05% Nasal [place]) 1 spray BID NARES Last administered on 08/16/18at 08:59; Start 08/15/18 at 21:00 Gabapentin (Neurontin) 100 mg BID PO Last administered on 08/16/18at 08:58; Start 08/15/18 at 21:00 Glucagon (Glucagon) 1 mg ASDIRECTED PRN SC SEE LABEL COMMENTS; Start 08/15/18 at 15:15 Glucose (Glucose) 16 GM ASDIRECTED PRN PO SEE LABEL COMMENTS; Start 08/15/18 at 15:15 Guaifenesin (Robitussin) 10 ml Q4HP PRN PO COUGH; Start 08/15/18 at 15:15 Heparin Sodium (Porcine) (Heparin) 5,000 units Q8H SC Last administered on 08/16/18at 14:13; Start 08/15/18 at 22:00 Insulin Human Lispro (HumaLOG INSULIN) SEE PROTOCOL TABLE AC SC Last administered on 08/16/18at 12:15; Start 08/15/18 at 17:30 Insulin Human Lispro (HumaLOG INSULIN) SEE PROTOCOL TABLE QHS SC ; Start 08/15 at 21:00 Levofloxacin (Levaquin) 250 mg DAILY@06 PO Last administered on 08/16/18at 06:21; Start 08/16/18 at 06:00; Stop 08/20/18 at 06:01 Ondansetron HCl (Zofran) 4 mg Q6HP PRN PO NAUSEA; Start 08/15/18 at 15:15 Pantoprazole Sodium (Protonix) 40 mg DAILY PO Last administered on 08/16/18at 08:58; Start 08/16/18 at 09:00 Rosuvastatin Calcium (Crestor) 10 mg QHS PO Last administered on 08/15/18at 21:25; Start 08/15/18 at 21:00 Salmeterol Xinafoate/ Fluticasone (Advair Hfa 230/ 21) 2 puff BID INH Last administered on 08/16/18at 07:14; Start 08/15/18 at 21:00 Senna (Senokot) 1 tab QHS PO ; Start 08/15/18 at 21:00 Sevelamer Carbonate (Renvela) 1,600 mg WM PO Last administered on 08/16/18at 1 2:14; Start 08/15/18 at 18:00 Zinc Oxide (Boudreauxs Butt Paste) sacrum BID TOP Last administered on 08/16/18at 08:59; Start 08/15/18 at 21:00 SHANNAN OLMOS MD Aug 16, 2018 14:44
[2018-08-16] MEDS ORDERED: HEPARIN 1,000 UNITS/ML 10ML VIAL (FOR RADIOLOGY& DIALYSIS ONLY) IV ONE (14:45)
--- NOTE | 2018-08-16 17:32 | IPN ---
DATE: 08/16/2018 Mr. Dykes is seen this morning on his bedside. He is feeling better and reports that his cough and dyspnea has improved. He underwent ultrafiltration yesterday and we were able to remove 2 liters of fluid. He denies any nausea or vomiting. He has been now transferred to acute rehabilitation unit for rehabilitation due to weakness. PHYSICAL EXAMINATION: Patient is awake and alert, at his baseline mentation. Temperature is 98.2 degrees Fahrenheit, heart rate 85 per minute and respiratory rate 18 per minute. Blood pressure 158/76 mmHg and oxygen saturation 96% on room air. His head is atraumatic. Neck is supple and jugular venous distention (JVD) does not seem to be abnormally elevated. Ears, nose and throat are unremarkable. Heart exam reveals regular S1, S2. Lungs sounds slightly diminished at bases, but no wheezing or rales. Abdomen is soft and nontender. Bowel sounds are normal. Extremities have no cyanosis or clubbing. Left foot is in the dressing. Neurologically, he seems to be at his baseline mentation without a focal deficit. Today's labs show a WBC count 5.3, hemoglobin 8.4 and hematocrit 27.3. Platelets 132. Sodium 137, potassium 4.2, CO2 29, BUN 35 and creatinine 6.74. Glucose 108 and calcium 0.3. PROBLEMS: 1. End-stage renal disease. Patient is due for dialysis today, as he was last dialyzed on Monday. His regular dialysis days are Monday, Monday and Monday. He will be dialyzed this afternoon and next dialysis will be on Monday. We will try to switch him back to his regular schedule next week. 2. Anemia. Most likely related to ongoing left foot wound and end-stage renal disease. He has been receiving Aranesp with dialysis and will continue with the same. I will also check his iron studies and consider giving him intravenous iron during dialysis if his iron studies are low. 3. Hypertension. Blood pressure seems to be reasonably well-controlled on current antihypertensive medications and no changes are being made. 4. Congestive heart failure. Patient had ultrafiltration done yesterday and 2 liters fluid was removed. His cough and dyspnea has improved and we will continue to monitor closely.
--- NOTE | 2018-08-16 18:49 | REP ---
Portable chest x-ray: Single view. History: Rule out infiltrate. Comparison chest x-ray: August 13, 2018. Findings: The patient is status post prior median sternotomy. Moderate to marked cardiac enlargement is again noted. There is fissural thickening noted on the right and there is pleuroparenchymal opacity in the left base. I suspect small bilateral pleural effusions. No definite infiltrate. Pulmonary vasculature is cephalized. Impression: CHF pattern with small bilateral effusions. No definite infiltrate. Prior sternotomy. Electronically Signed by Mani Medina MD 08/17/2018 08:04 A
[2018-08-16] MEDS: SENNA 8.6 MG TAB (SENOKOT) PO SCH (21:00)
[2018-08-16] MEDS: ROSUVASTATIN 10 MG TAB (CRESTOR) PO SCH (21:33)
[2018-08-16 22:00] VITALS: BP 117/58
[2018-08-17] MEDS: IPRATROPIUM 0.5MG/ALBUTEROL 2.5MG INH SOL UD 3ML (DUONEB)(J7620) NEB SCH ×5 (02:39→20:00)
[2018-08-17] MEDS: LevoFLOXacin 250 MG TABLET PO SCH (05:29)
[2018-08-17] MEDS: HEPARIN SOD (PORCINE) 5000 UNITS/ML VIAL SC SCH ×3 (05:29→21:48)
[2018-08-17 06:00] VITALS: BP 138/82
[2018-08-17] MEDS: HumaLOG INSULIN (NovoLOG) PER UNIT SC SCH ×4 (07:08→21:00)
[2018-08-17] MEDS: ADVAIR HFA 230/21MCG INHALER INH SCH ×2 (07:43→21:00)
--- NOTE | 2018-08-17 07:52 | IPNPDOC ---
Text Note Date of Service The patient was seen on 08/17/18. NOTE Subjective: Reports cough is better today, he had dialysis yesterday, uncertain of how much fluid was removed. denies chills, chest pain, SOB Objective GENERAL: NAD SKIN : Warm, dry intact HEENT: Atraumatic, normocephalic, PERRL, moist mucous membrane CARDIOVASCULAR: Regular rate and rhythm, S1S2, no JVD, no edema, distal pulses + and palpable RESP: Coarse inspiratory wheezes in all lung pena with cough, mild accessory muscle use noted ABDOMEN: BS+ non distended non tender MS: no joint deformities NEURO: Alert and oriented x 3, CN2-12 grossly intact PSYCH: no anxiety or agitation, appropriate mood and affect. Assessment/Plan Acute hypoxic respiratory failure -reports improvement in symptoms today. Lying flat in bed at time of assessment with no respiratory effort noted -continue scheduled bronchodilator therapy -will need long acting bronchodilator at discharge ESRD on HD (MWF) - Nephrology on consultation, appreciate input -hemodialysis management Type 2 diabetes mellitus -Caloric controlled diabetic diet -Finger stick checks prior to meals and at bedtime -Coverage with insulin per sliding scale protocol Peripheral neuropathy - on Gabapentin CAD s/p CABG (2017) - Currently without angina -Continue CAD risk factor modifications with statin, Plavix , patient is allergic to aspirin Combined heart failure with acute exacerbation -Ejection fraction 40% -continue fluid restriction 1500 mL a day -Hemodialysis as scheduled by nephrology -Cardiac diet -Scheduled bronchodilator therapy PAD -Status post left lower extremity angioplasty -Continue Plavix and statin -Continue other risk factor modifications DVT prophylaxis - Heparin Advanced Care planning -Code status: DNR / DNI VS,Fishbone, I+O VS, Fishbone, I+O Vital Signs Date Time Temp Pulse Resp B/P (MAP) Pulse Ox O2 Delivery O2 Flow Rate FiO2 08/17/18 06:00 100.0 81 16 138/82 (100) 100 I&O- Last 24 Hours up to 6 AM 08/17/18 06:00 Intake Total 730 ml Output Total 2500 ml Balance -1770 ml JODI DAVIS INDUSTRIAL X RAY OPERATOR Aug 17, 2018 07:52
[2018-08-17] MEDS: guaiFENesin/CODEINE SYRUP 5 ML UDC PO SCH (08:15)
[2018-08-17] MEDS: CARVedilol 12.5 MG TAB PO SCH ×2 (08:16→21:51)
[2018-08-17] MEDS: PANTOPRAZOLE 40MG TAB (PROTONIX) PO SCH (08:16)
[2018-08-17] MEDS: GABAPENTIN 100 MG CAP PO SCH ×2 (08:16→21:50)
[2018-08-17] MEDS: BENZONATATE 100 MG CAP PO SCH ×3 (08:16→21:48)
[2018-08-17] MEDS: CLOPIDOGREL 75 MG TAB PO SCH (08:16)
[2018-08-17] MEDS: FLUTICASONE PROP 0.05% NASAL SPRAY 16 GM (FLONASE) NARES SCH ×2 (08:17→21:51)
[2018-08-17] MEDS: (RENVELA) SEVELAMER **CARBONate** 800 MG TAB PO SCH ×3 (08:17→17:10)
[2018-08-17] MEDS: BOUDREAUX'S BUTT PASTE TOP SCH ×2 (08:17→21:52)
[2018-08-17] MEDS: DOCUSATE SODIUM 100 MG CAP PO SCH ×2 (08:17→21:50)
[2018-08-17] MEDS: CETIRIZINE (ZyrTEC) 10 MG TAB PO SCH (08:17)
[2018-08-17 10:58] LABS: BASO % 0.8 % (0.0-1.0); EOS # 0.2 10^3/uL (0.0-0.50); EOS % 3.4 % (0.0-3.0); HEMATOCRIT 26.8 % (42.0-52.0); HEMOGLOBIN 8.2 g/dl (13.5-17.5); LYMPH # 0.9 10^3/uL (1.5-4.5); LYMPH % 19.7 % (24.0-44.0); MEAN CORPUSCULAR HEMOGLOBIN 30.5 pg (27.0-33.0); MEAN CORPUSCULAR HGB CONC 30.6 g/dl (32.0-36.5); MEAN CORPUSCULAR VOLUME 99.6 fl (80.0-96.0); MONO # 0.5 10^3/uL (0.0-0.8); MONO % 11.1 % (0.0-5.0); NEUTROPHILS # 3.1 10^3/uL (1.8-7.7); NEUTROPHILS % 64.8 % (36.0-66.0); PLATELET COUNT, AUTOMATED 158 10^3/uL (150-450); RED BLOOD COUNT 2.69 10^6/uL (4.30-6.10); WHITE BLOOD COUNT 4.8 10^3/uL (4.0-10.0)
[2018-08-17 11:21] LABS: CALCIUM LEVEL 9.3 MG/DL (8.8-10.2); CREATININE FOR GFR 5.14 MG/DL (0.70-1.30); GLOMERULAR FILTRATION RATE 11.9 (>49); POTASSIUM SERUM 4.3 MEQ/L (3.5-5.1)
--- NOTE | 2018-08-17 11:25 | IPNPDOC ---
PM&R Progress Note DATE OF SERVICE: Aug 17, 2018 Plaster Pattern Caster Progress Note Subjective: Patient seen in therapy gym stating he feels stronger today and is coughing less. REVIEW OF SYSTEMS: The following is a completed review of systems and has been reviewed. Review of systems otherwise unremarkable. PAIN: Patient self reports no pain EYES: no recent vision loss EARS, NOSE, & THROAT: denies dysphagia or throat pain CARDIOVASCULAR: denies chest pain or palpitations PULMONARY: Negative. Denies shortness of breath, +cough GASTROINTESTINAL: denies diarrhea/constipation GENITOURINARY: denies dysuria or hematuria MUSCULOSKELETAL: weakness in all 4 extremities NEUROLOGICAL: mild cognitive decline HEMATOLOGICAL: Negative SKIN: arterial/diabetic foot ulcers PSYCHIATRIC: Unremarkable All other review of systems found to be negative. PHYSICAL EXAMINATION: VITAL SIGNS: Please see below. GENERAL: Pleasant and cooperative. No acute distress. HEENT: PERRL. Extraocular movements intact. Clear conjunctiva CARDIOVASCULAR: Regular rate and rhythm. No murmurs, rubs, or gallops LUNGS: Clear to auscultation bilaterally. No wheezes. No rhonchi ABDOMEN: Soft, nontender, nondistended. Positive bowel sounds. Normal active bowel sounds NEUROLOGICAL: Alert and oriented times three, slow to respond Cranial nerves II through XII grossly intact. Sensation mildly diminished bilat LE in stocking pattern +babinksi bilat, brisk patellar reflexes EXTREMITIES: 4\5 strength bilateral upper extremities. 4\5 strength right lower extremity. 4/5 strength in left lower extremity. SKIN: sacrum without ulcers, bilateral toe ulcers and left lateral foot ulcer with scant serosanguineous drainage ASSESSMENT:68-year-old M with past medical history of ESRD on HD with multiple CVAs who presents status post cardiac arrest with metabolic encephalopathy and worsening peripheral neuropathy leading to mobility and ADL impairment. PLAN: 1. 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 Neuro: pmh multiple strokes with new cognitive impairments following cardiac arrest, avoid deliriogenic agents, monitor for seizures, currently off anti- epileptics, recent EEG negative for seizure activity -continue statin and Plavix for secondary stroke prevention -peripheral and vascular neuropathy causing gait impairment 3. Resp: finishing up course of Levofloxacin for suspected pneumonia, c/u breathing treatments and cough suppressants -repeat CXR ordered 08/16/18 showing no infiltrate 4. Cardiac: pmh CAD s/p CABG and PVD s/p multiple angiograms, c/u Plavix- f/u with Dr. Blank as outpatient -HTN- c/u BP meds, medicine consulted to assist in management - recent acute on chronic CHF, monitor for fluid overload, appears stable now 5. Endo: pmh DM with neuropathy, continue insulin coverage and ISS, adjust prn 6. Renal: ESRD on HD, c/u Sevelamer, renal consulted 7. DVT ppx: heparin and TEDs 8. GI ppx: Protonix 9. Skin: skin checks q-shift, cover toe ulcers with optifoam- will f/u with Dr. Blue 10. Dispo: TBD 11. DNR Allergies Coded Allergies: aspirin (Verified Allergy, Severe, CLOSES AIRWAY, 06/15/18) Vital Signs Vital Signs Date Time Temp Pulse Resp B/P (MAP) Pulse Ox O2 Delivery O2 Flow Rate FiO2 08/17/18 08:16 81 138/82 08/17/18 06:00 100.0 16 100 Laboratory Data CBC/BMP Laboratory Tests 08/17/18 10:05 Red Blood Count 2.69 L, Mean Corpuscular Volume 99.6 H, Mean Corpuscular Hemoglobin 30.5, Mean Corpuscular Hemoglobin Concent 30.6 L, Red Cell Distribution Width 15.2 H, Neutrophils (%) (Auto) 64.8, Lymphocytes (%) (Auto) 19.7 L, Monocytes (%) (Auto) 11.1 H, Eosinophils (%) (Auto) 3.4 H, Basophils (%) (Auto) 0.8, Neutrophils # (Auto) 3.1, Lymphocytes # (Auto) 0.9 L, Monocytes # (Auto) 0.5, Eosinophils # (Auto) 0.2, Basophils # (Auto) 0.0, Calcium Level 9.3 Labs 24H Laboratory Tests 2 08/16/18 11:29: Bedside Glucose (Misc Panel) 132H 08/16/18 19:20: Bedside Glucose (Misc Panel) 101 08/17/18 05:35: Bedside Glucose (Misc Panel) 97 08/17/18 10:05: Immature Granulocyte % (Auto) 0.2, White Blood Count 4.8, Red Blood Count 2.69L, Hemoglobin 8.2L, Hematocrit 26.8L, Mean Corpuscular Volume 99.6H, Mean Corpuscular Hemoglobin 30.5, Mean Corpuscular Hemoglobin Concent 30.6L, Red Cell Distribution Width 15.2H, Platelet Count 158, Neutrophils (%) (Auto) 64.8, Lymphocytes (%) (Auto) 19.7L, Monocytes (%) (Auto) 11.1H, Eosinophils (%) (Auto) 3.4H, Basophils (%) (Auto) 0.8, Neutrophils # (Auto) 3.1, Lymphocytes # (Auto) 0.9L, Monocytes # (Auto) 0.5, Eosinophils # (Auto) 0.2, Basophils # (Auto) 0.0, Nucleated Red Blood Cells % (auto) 0.0, Anion Gap 3L, Glomerular Filtration Rate 11.9L, Blood Urea Nitrogen 21H, Creatinine 5.14H, Sodium Level 138, Potassium Level 4.3, Chloride Level 101, Carbon Dioxide Level 34H, Calcium Level 9.3 Current Medications Current Medications Current Medications Acetaminophen (Tylenol Tab) 650 mg Q4HP PRN PO fever/MILD PAIN (PS 1-4); Start 08/15/18 at 15:15 Albuterol Sulfate (Proventil Neb) 2.5 mg RQ4H NEB Last administered on 08/16/18at 04:00; Start 08/15/18 at 16:00; Stop 08/16/18 at 10:32; Status DC Albuterol/ Ipratropium (Duoneb (Ipr 0.5mg/Alb 2.5mg)) 3 ml Q2HP PRN NEB SOB/WHEEZING; Start 08/16/18 at 11:00 Albuterol/ Ipratropium (Duoneb (Ipr 0.5mg/Alb 2.5mg)) 3 ml Q6HP PRN NEB SOB/WHEEZING; Start 08/15/18 at 15:15; Stop 08/16/18 at 10:32; Status DC Albuterol/ Ipratropium (Duoneb (Ipr 0.5mg/Alb 2.5mg)) 3 ml RQ4H NEB Last administered on 08/17/18 02:39; Start 08/16/18 at 12:00 Amlodipine Besylate (Norvasc) 2.5 mg QHS PO Last administered on 08/16/18 21:33; Start 08/15/18 at 21:00 Benzonatate (Tessalon Perles) 200 mg TID PO Last administered on 08/17/18 08:16; Start 08/15/18 at 16:00 Bisacodyl (Dulcolax Suppository) 10 mg DAILYPRN PRN [place] CONSTIPATION; Start 08/15/18 at 15:15 Calcium Carbonate (Tums) 1,000 mg Q4HP PRN PO HEARTBURN; Start 08/15/18 at 15:15 Carvedilol (COReg) 12.5 mg BID PO Last administered on 08/17/18 08:16; Start 08/15/18 at 21:00 Cetirizine HCl (ZyrTEC) 10 mg DAILY PO Last administered on 08/17/18 08:17; Start 08/16/18 at 09:00 Clopidogrel Bisulfate (PLAVix) 75 mg DAILY PO Last administered on 08/17/18 08:16; Start 08/16/18 at 09:00 Codeine Phosphate/ Guaifenesin (Robitussin Ac) 5 ml Q12H PO Last administered on 08/17/18 08:15; Start 08/16/18 at 09:00; Stop 08/17/18 at 09:54; Status DC Darbepoetin Donny (Aranesp (Dialysis Use)) 100 mcg HD IV ; Start 08/16/18 at 1 2:45 Dextrose (Dextrose 50%) 25 ml ASDIRECTED PRN IV SEE LABEL COMMENTS; Start 08/15/18 at 15:15 Docusate Sodium (Colace) 100 mg BID PO ; Start 08/15/18 at 21:00 Fluticasone Propionate (Flonase 0.05% Nasal [place]) 1 spray BID NARES Last administered on 08/17/18 08:17; Start 08/15/18 at 21:00 Gabapentin (Neurontin) 100 mg BID PO Last administered on 7/12/19at 08:16; Start 08/15/18 at 21:00 Glucagon (Glucagon) 1 mg ASDIRECTED PRN SC SEE LABEL COMMENTS; Start 08/15/18 at 15:15 Glucose (Glucose) 16 GM ASDIRECTED PRN PO SEE LABEL COMMENTS; Start 08/15/18 at 15:15 Guaifenesin (Robitussin Tab) 400 mg TID PO ; Start 08/17/18 at 10:00 Guaifenesin (Robitussin Tab) 400 mg TID PO ; Start 08/17/18 at 16:00; Stop 08/17/18 at 16:00; Status DC Guaifenesin (Robitussin) 10 ml Q4HP PRN PO COUGH; Start 08/15/18 at 15:15; Stop 08/17/18 at 09:54; Status DC Heparin Sodium (Porcine) (Heparin) 5,000 units Q8H SC Last administered on 08/17/18at 05:29; Start 08/15/18 at 22:00 Insulin Human Lispro (HumaLOG INSULIN) SEE PROTOCOL TABLE AC SC Last administered on 08/16/18at 12:15; Start 08/15/18 at 17:30 Insulin Human Lispro (HumaLOG INSULIN) SEE PROTOCOL TABLE QHS SC ; Start 08/15/18 at 21:00 Levofloxacin (Levaquin) 250 mg DAILY@06 PO Last administered on 08/17/18at 05:29; Start 08/16/18 at 06:00; Stop 08/20/18 at 06:01 Ondansetron HCl (Zofran) 4 mg Q6HP PRN PO NAUSEA; Start 08/15/18 at 15:15 Pantoprazole Sodium (Protonix) 40 mg DAILY PO Last administered on 08/17/18at 08:16; Start 08/16/18 at 09:00 Rosuvastatin Calcium (Crestor) 10 mg QHS PO Last administered on 08/16/18at 21:33; Start 08/15/18 at 21:00 Salmeterol Xinafoate/ Fluticasone (Advair Hfa 230/ 21) 2 puff BID INH Last administered on 08/17/18at 07:43; Start 08/15/18 at 21:00 Senna (Senokot) 1 tab QHS PO ; Start 08/15/18 at 21:00 Sevelamer Carbonate (Renvela) 1,600 mg WM PO Last administered on 08/17/18at 08:17; Start 08/15/18 at 18:00 Zinc Oxide (Boudreauxs Butt Paste) sacrum BID TOP Last administered on 08/17/18at 08:17; Start 08/15/18 at 21:00 SHANNAN OLMOS MD Aug 17, 2018 11:25
[2018-08-17] MEDS: guaiFENesin 200 MG TAB PO SCH ×3 (11:34→21:50)
[2018-08-17] MEDS ORDERED: IRON SUCROSE 100MG 5ML VIAL (J1756 PER 1MG) IV SCH (12:30)
[2018-08-17] MEDS ORDERED: guaiFENesin 200 MG TAB PO SCH (16:00)
--- NOTE | 2018-08-17 18:43 | IPN ---
DATE: 08/17/2018 Mr. Dykes is seen this morning on his bedside. He is in good spirits and just finished his physical therapy. He is feeling well and denies any dyspnea, chest pain, nausea or vomiting. He was dialyzed yesterday, which he tolerated very well. PHYSICAL EXAMINATION: His temperature is 100 degrees Fahrenheit, heart rate 80 per minute, respiratory rate 16 per minute, blood pressure 138/82 mm of mercury, and oxygen saturation 100% on room air. His head is atraumatic. Neck is supple and without jugular venous distention (JVD) or thyroid enlargement. Heart sounds are regular, and lungs sound clear to auscultation today. Abdomen soft and nontender, and bowel sounds are normal. Extremities have no cyanosis or clubbing. Dressings on multiple toes are present. Neurologically, he is at his baseline mentation. Today's labs show WBC count 4.8, hemoglobin 8.2 and hematocrit 26.8. Sodium 138, potassium 4.3, CO2 of 34, BUN 21 and creatinine 5.14. PROBLEMS: 1. End-stage renal disease. The patient was dialyzed yesterday, and we will plan to dialyze him again tomorrow. His regular days for dialysis on Monday, Monday, and Monday, and he will be switched back to his regular schedule next week. 2. Congestive heart failure and pleural effusion. He does have a history of pleural effusion in the past, for which he required PleurX catheter. At present his volume status is very well compensated, and we will continue to monitor closely and manage it with dialysis. 3. Anemia. The patient has iron deficiency and end-stage renal disease. He has been receiving Aranesp during dialysis, and we will also start with Venofer 100 mg with each dialysis. 4. Hypertension. Blood pressure is very well controlled on current medications, and no changes are being made today.
[2018-08-17 20:00] VITALS: BP 121/60
[2018-08-17] MEDS: ROSUVASTATIN 10 MG TAB (CRESTOR) PO SCH (21:50)
[2018-08-17] MEDS: SENNA 8.6 MG TAB (SENOKOT) PO SCH (21:50)
[2018-08-18] MEDS: IPRATROPIUM 0.5MG/ALBUTEROL 2.5MG INH SOL UD 3ML (DUONEB)(J7620) NEB SCH ×7 (04:00→23:18)
[2018-08-18] MEDS: LevoFLOXacin 250 MG TABLET PO SCH (05:28)
[2018-08-18] MEDS: HEPARIN SOD (PORCINE) 5000 UNITS/ML VIAL SC SCH ×3 (05:28→20:57)
[2018-08-18 06:00] VITALS: BP 142/66
[2018-08-18] MEDS: HumaLOG INSULIN (NovoLOG) PER UNIT SC SCH ×4 (07:30→20:58)
[2018-08-18] MEDS: ADVAIR HFA 230/21MCG INHALER INH SCH ×2 (07:41→21:00)
[2018-08-18 08:16] LABS: HEMATOCRIT 33.1 % (42.0-52.0); HEMOGLOBIN 10.1 g/dl (13.5-17.5); MEAN CORPUSCULAR HEMOGLOBIN 31.6 pg (27.0-33.0); MEAN CORPUSCULAR HGB CONC 30.5 g/dl (32.0-36.5); MEAN CORPUSCULAR VOLUME 103.4 fl (80.0-96.0); PLATELET COUNT, AUTOMATED 218 10^3/uL (150-450); WHITE BLOOD COUNT 6.4 10^3/uL (4.0-10.0)
[2018-08-18] MEDS: BOUDREAUX'S BUTT PASTE TOP SCH ×2 (09:00→20:59)
[2018-08-18] MEDS: guaiFENesin 200 MG TAB PO SCH ×3 (09:42→20:57)
[2018-08-18] MEDS: (RENVELA) SEVELAMER **CARBONate** 800 MG TAB PO SCH ×3 (09:42→17:13)
[2018-08-18] MEDS: PANTOPRAZOLE 40MG TAB (PROTONIX) PO SCH (09:42)
[2018-08-18] MEDS: GABAPENTIN 100 MG CAP PO SCH ×2 (09:42→20:58)
[2018-08-18] MEDS: CLOPIDOGREL 75 MG TAB PO SCH (09:42)
[2018-08-18] MEDS: CETIRIZINE (ZyrTEC) 10 MG TAB PO SCH (09:42)
[2018-08-18] MEDS: BENZONATATE 100 MG CAP PO SCH ×3 (09:42→20:58)
[2018-08-18] MEDS: DOCUSATE SODIUM 100 MG CAP PO SCH ×2 (09:42→20:58)
[2018-08-18] MEDS: FLUTICASONE PROP 0.05% NASAL SPRAY 16 GM (FLONASE) NARES SCH ×2 (09:43→20:59)
[2018-08-18] MEDS: CARVedilol 12.5 MG TAB PO SCH ×2 (09:43→20:58)
[2018-08-18] MEDS ORDERED: HEPARIN 1,000 UNITS/ML 10ML VIAL (FOR RADIOLOGY& DIALYSIS ONLY) IV ONE (12:00)
[2018-08-18 17:45] VITALS: BP 158/70
--- NOTE | 2018-08-18 18:17 | IPN ---
DATE: 08/18/2018 SUBJECTIVE: Ayaan is seen and examined this morning in the rehabilitation unit. He denies any overnight events or complaints. His wheezing is improving. He is scheduled for dialysis this afternoon. He is off of his usual maintenance schedule. VITAL SIGNS: Temperature 97.7, pulse 82, respiratory rate 18, blood pressure 142/66, saturating 90% on room air. Intake yesterday was not fully recorded. Dialysis today removed 2500. Weight in the bed scale today is not recorded. GENERAL: The patient is seen in the rehabilitation unit, awake, alert, oriented at usual baseline mentation, comfortable and interactive. Extraocular muscles are intact. Neck is supple. There is no jugular venous distension. HEART: Sounds are regular, S1, S2. LUNGS: Show scattered expiratory wheeze. ABDOMEN: Soft and nontender. There are bowel sounds. The left upper extremity fistula is patent with thrill and bruit. His foot wound is not examined. LABORATORY DATA: White count 6.4, hemoglobin 10.1. Sodium 138, potassium 4.3. INPATIENT MEDICATIONS: Reviewed by myself and no change from prior. PROBLEMS: 1. End-stage renal disease, on hemodialysis on Monday, Monday, Monday maintenance schedule. He is off of his usual maintenance schedule. He is being dialyzed today, and on Monday, August 20, we will return to his usual schedule. His electrolytes and volume status are acceptable. His fistula is in good use. He is well dialyzed. No changes are being made to the chronic prescription. 2. Hypertension. Blood pressures systolic have been ranging from 128s to 140s and are acceptable on the current regimen of amlodipine, carvedilol, and no changes are being made. 3. Anemia related to chronic renal failure and inflammatory state. His hemoglobin is up to 10.1 today, which is optimal. He continues on the usual Aranesp and Venofer with dialysis.
[2018-08-18 19:55] VITALS: BP_SYST 168; BP_SYST 174; BP_DIAS 79; BP_DIAS 82
[2018-08-18] MEDS: ROSUVASTATIN 10 MG TAB (CRESTOR) PO SCH (20:58)
[2018-08-18] MEDS: SENNA 8.6 MG TAB (SENOKOT) PO SCH (20:58)
[2018-08-19] MEDS: IPRATROPIUM 0.5MG/ALBUTEROL 2.5MG INH SOL UD 3ML (DUONEB)(J7620) NEB SCH ×6 (04:38→23:49)
[2018-08-19 04:57] VITALS: BP 158/70
[2018-08-19] MEDS: LevoFLOXacin 250 MG TABLET PO SCH (05:13)
[2018-08-19] MEDS: HEPARIN SOD (PORCINE) 5000 UNITS/ML VIAL SC SCH ×3 (05:13→20:47)
[2018-08-19] MEDS: HumaLOG INSULIN (NovoLOG) PER UNIT SC SCH ×4 (07:27→20:06)
[2018-08-19] MEDS: ADVAIR HFA 230/21MCG INHALER INH SCH ×2 (07:38→21:31)
[2018-08-19] MEDS: BENZONATATE 100 MG CAP PO SCH ×3 (08:47→20:42)
[2018-08-19] MEDS: guaiFENesin 200 MG TAB PO SCH ×3 (08:47→20:47)
[2018-08-19] MEDS: CETIRIZINE (ZyrTEC) 10 MG TAB PO SCH (08:47)
[2018-08-19] MEDS: (RENVELA) SEVELAMER **CARBONate** 800 MG TAB PO SCH ×3 (08:47→17:21)
[2018-08-19] MEDS: DOCUSATE SODIUM 100 MG CAP PO SCH ×2 (08:47→20:42)
[2018-08-19] MEDS: FLUTICASONE PROP 0.05% NASAL SPRAY 16 GM (FLONASE) NARES SCH ×2 (08:48→20:48)
[2018-08-19] MEDS: PANTOPRAZOLE 40MG TAB (PROTONIX) PO SCH (08:48)
[2018-08-19] MEDS: CLOPIDOGREL 75 MG TAB PO SCH (08:48)
[2018-08-19] MEDS: GABAPENTIN 100 MG CAP PO SCH ×2 (08:48→20:43)
[2018-08-19] MEDS: CARVedilol 12.5 MG TAB PO SCH ×2 (08:49→20:43)
[2018-08-19] MEDS: BOUDREAUX'S BUTT PASTE TOP SCH ×2 (08:49→20:48)
--- NOTE | 2018-08-19 10:24 | IPNPDOC ---
Date Seen The patient was seen on 08/19/18. Progress Note SUBJECTIVE: 68M pmh ESRD on HD, DM2, CAD s/p CABG 218, multiple CVAs, diastolic and systolic CHF, BPH, diabetic and ischemic foot ulcers, PVD s/p stenting on the left who had cardiac arrest on August 13, 2018 while undergoing angiography of his right leg. He was resuscitated and witnessed to have seizure-like activity. he was admitted to medical service on 08/13 and transferred to acute rehab unit on 08/15' medical team is following for medical management no events overnight doing well medically Review of Systems no fever no chills no sob no chest pain no abdominal pain no diarrhea OBJECTIVE PHYSICAL EXAMINATION: VITAL SIGNS: Please see below. GENERAL: AA ox3, sitting in the chair and comfortable HEENT: Atraumatic CARDIOVASCULAR: S1S2 regular, no mumur RESPIRATORY: clear, no crackles no wheezing ABDOMINAL: soft, BS + non tender EXTREMITIES: no edema NEUROLOGICAL: non focal PSYCHOLOGICAL: no agitation or psychosis LABORATORY DATA, IMAGING STUDIES, MICROBIOLOGY: Please see below. ASSESSMENT AND PLAN: 1. Cardiac arrest, s/p resuscitation 2. Pneumonia he is afebrile, no leukocytosis on Levaquin day #4 out of 5 3. ESRD, on HD 4. DM T2, on ISS 5. HTN/CAD/PAD, stable VS, I&O, 24H, Fishbone Vital Signs/I&O Vital Signs Date Time Temp Pulse Resp B/P (MAP) Pulse Ox O2 Delivery O2 Flow Rate FiO2 08/19/18 08:49 80 153/70 08/19/18 04:57 97.8 18 92 I&O- Last 24 Hours up to 6 AM 08/19/18 06:00 Intake Total 580 ml Output Total 2500 ml Balance -1920 ml Laboratory Data 24H LABS Laboratory Tests 2 08/18/18 11:03: Bedside Glucose (Misc Panel) 192H 08/18/18 16:36: Bedside Glucose (Misc Panel) 79L 08/18/18 19:44: Bedside Glucose (Misc Panel) 247H 08/19/18 06:00: Bedside Glucose (Misc Panel) 100 YENNY LLOYD MD Aug 19, 2018 10:24
[2018-08-19 14:00] VITALS: BP 144/68
[2018-08-19 20:00] VITALS: BP 161/77
[2018-08-19] MEDS: SENNA 8.6 MG TAB (SENOKOT) PO SCH (20:44)
[2018-08-19] MEDS: ROSUVASTATIN 10 MG TAB (CRESTOR) PO SCH (20:48)
[2018-08-20] MEDS: IPRATROPIUM 0.5MG/ALBUTEROL 2.5MG INH SOL UD 3ML (DUONEB)(J7620) NEB SCH ×6 (04:00→23:42)
[2018-08-20 05:46] VITALS: BP 160/75
[2018-08-20] MEDS: LevoFLOXacin 250 MG TABLET PO SCH (06:01)
[2018-08-20] MEDS: HEPARIN SOD (PORCINE) 5000 UNITS/ML VIAL SC SCH ×3 (06:01→22:03)
[2018-08-20 07:18] LABS: BASO % 0.7 % (0.0-1.0); EOS # 0.2 10^3/uL (0.0-0.50); EOS % 2.7 % (0.0-3.0); HEMATOCRIT 29.4 % (42.0-52.0); LYMPH # 1.5 10^3/uL (1.5-4.5); LYMPH % 24.8 % (24.0-44.0); MEAN CORPUSCULAR HEMOGLOBIN 30.5 pg (27.0-33.0); MEAN CORPUSCULAR HGB CONC 30.6 g/dl (32.0-36.5); MEAN CORPUSCULAR VOLUME 99.7 fl (80.0-96.0); MONO # 0.5 10^3/uL (0.0-0.8); NEUTROPHILS # 3.7 10^3/uL (1.8-7.7); NEUTROPHILS % 62.5 % (36.0-66.0); PLATELET COUNT, AUTOMATED 179 10^3/uL (150-450); RED BLOOD COUNT 2.95 10^6/uL (4.30-6.10); WHITE BLOOD COUNT 5.9 10^3/uL (4.0-10.0)
[2018-08-20] MEDS: ADVAIR HFA 230/21MCG INHALER INH SCH ×2 (07:29→20:55)
[2018-08-20 07:46] LABS: CALCIUM LEVEL 9.1 MG/DL (8.8-10.2); CREATININE FOR GFR 6.65 MG/DL (0.70-1.30); GLOMERULAR FILTRATION RATE 8.9 (>49); POTASSIUM SERUM 4.8 MEQ/L (3.5-5.1)
[2018-08-20] MEDS: GABAPENTIN 100 MG CAP PO SCH ×2 (08:13→20:46)
[2018-08-20] MEDS: (RENVELA) SEVELAMER **CARBONate** 800 MG TAB PO SCH ×3 (08:13→18:01)
[2018-08-20] MEDS: PANTOPRAZOLE 40MG TAB (PROTONIX) PO SCH (08:13)
[2018-08-20] MEDS: CETIRIZINE (ZyrTEC) 10 MG TAB PO SCH (08:13)
[2018-08-20] MEDS: BENZONATATE 100 MG CAP PO SCH ×3 (08:14→20:45)
[2018-08-20] MEDS: CLOPIDOGREL 75 MG TAB PO SCH (08:14)
[2018-08-20] MEDS: guaiFENesin 200 MG TAB PO SCH ×3 (08:14→20:50)
[2018-08-20] MEDS: CARVedilol 12.5 MG TAB PO SCH ×2 (08:14→20:46)
[2018-08-20] MEDS: BOUDREAUX'S BUTT PASTE TOP SCH ×2 (08:15→20:48)
[2018-08-20] MEDS: FLUTICASONE PROP 0.05% NASAL SPRAY 16 GM (FLONASE) NARES SCH ×2 (08:15→20:48)
[2018-08-20] MEDS: DOCUSATE SODIUM 100 MG CAP PO SCH ×2 (08:15→20:47)
[2018-08-20] MEDS: HumaLOG INSULIN (NovoLOG) PER UNIT SC SCH ×4 (08:15→20:47)
--- NOTE | 2018-08-20 10:06 | IPNPDOC ---
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 REVIEW OF SYSTEMS: The following is a completed review of systems and has been reviewed. Review of systems otherwise unremarkable. PAIN: Patient self reports no pain EYES: no recent vision loss EARS, NOSE, & THROAT: denies dysphagia or throat pain CARDIOVASCULAR: denies chest pain or palpitations PULMONARY: Negative. Denies shortness of breath, +cough (improving) GASTROINTESTINAL: denies diarrhea/constipation GENITOURINARY: denies dysuria or hematuria MUSCULOSKELETAL: weakness in all 4 extremities NEUROLOGICAL: mild cognitive decline HEMATOLOGICAL: Negative SKIN: arterial/diabetic foot ulcers PSYCHIATRIC: Unremarkable All other review of systems found to be negative. PHYSICAL EXAMINATION: VITAL SIGNS: Please see below. GENERAL: Pleasant and cooperative. No acute distress. HEENT: PERRL. Extraocular movements intact. Clear conjunctiva CARDIOVASCULAR: Regular rate and rhythm. No murmurs, rubs, or gallops LUNGS: Clear to auscultation bilaterally. No wheezes. No rhonchi ABDOMEN: Soft, nontender, nondistended. Positive bowel sounds. Normal active bowel sounds NEUROLOGICAL: Alert and oriented times three, slow to respond Cranial nerves II through XII grossly intact. Sensation mildly diminished bilat LE in stocking pattern +babinksi bilat, brisk patellar reflexes EXTREMITIES: 4\5 strength bilateral upper extremities. 4\5 strength right lower extremity. 4/5 strength in left lower extremity. SKIN: sacrum without ulcers, bilateral toe ulcers and left lateral foot ulcer with scant serosanguineous drainage ASSESSMENT:68-year-old M with past medical history of ESRD on HD with multiple CVAs who presents status post cardiac arrest with metabolic encephalopathy and worsening peripheral neuropathy leading to mobility and ADL impairment. PLAN: 1. 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 Neuro: pmh multiple strokes with new cognitive impairments following cardiac arrest, avoid deliriogenic agents, monitor for seizures, currently off anti- epileptics, recent EEG negative for seizure activity -continue statin and Plavix for secondary stroke prevention -peripheral and vascular neuropathy causing gait impairment 3. Resp: finishing up course of Levofloxacin for suspected pneumonia, c/u breathing treatments and cough suppressants-cough improving -repeat CXR ordered 08/16/18 showing no infiltrate 4. Cardiac: pmh CAD s/p CABG and PVD s/p multiple angiograms, c/u Plavix- f/u with Dr. Blank as outpatient -HTN- c/u BP meds, medicine consulted to assist in management - recent acute on chronic CHF, monitor for fluid overload, appears stable now 5. Endo: pmh DM with neuropathy, continue insulin coverage and ISS, adjust prn 6. Renal: ESRD on HD, c/u Sevelamer, renal consulted 7. DVT ppx: heparin and TEDs 8. GI ppx: Protonix 9. Skin: skin checks q-shift, cover toe ulcers with optifoam- will need f/u with Dr. Blue 10. Dispo: TBD 11. DNR Allergies Coded Allergies: aspirin (Verified Allergy, Severe, CLOSES AIRWAY, 06/15/18) Vital Signs Vital Signs Date Time Temp Pulse Resp B/P (MAP) Pulse Ox O2 Delivery O2 Flow Rate FiO2 08/20/18 08:14 73 160/75 08/20/18 05:46 98.3 18 97 Laboratory Data CBC/BMP Laboratory Tests 08/20/18 06:46 Red Blood Count 2.95 L, Mean Corpuscular Volume 99.7 H, Mean Corpuscular Hemoglobin 30.5, Mean Corpuscular Hemoglobin Concent 30.6 L, Red Cell Distribution Width 15.7 H, Neutrophils (%) (Auto) 62.5, Lymphocytes (%) (Auto) 24.8, Monocytes (%) (Auto) 9.0 H, Eosinophils (%) (Auto) 2.7, Basophils (%) (Auto) 0.7, Neutrophils # (Auto) 3.7, Lymphocytes # (Auto) 1.5, Monocytes # (Auto) 0.5, Eosinophils # (Auto) 0.2, Basophils # (Auto) 0.0, Calcium Level 9.1 Labs 24H Laboratory Tests 2 08/19/18 11:29: Bedside Glucose (Misc Panel) 164H 08/19/18 16:44: Bedside Glucose (Misc Panel) 136H 08/19/18 19:57: Bedside Glucose (Misc Panel) 104 08/20/18 06:23: Bedside Glucose (Misc Panel) 103 08/20/18 06:46: Immature Granulocyte % (Auto) 0.3, White Blood Count 5.9, Red Blood Count 2.95L, Hemoglobin 9.0L, Hematocrit 29.4L, Mean Corpuscular Volume 99.7H, Mean Corpuscular Hemoglobin 30.5, Mean Corpuscular Hemoglobin Concent 30.6L, Red Cell Distribution Width 15.7H, Platelet Count 179, Neutrophils (%) (Auto) 62.5, Lymphocytes (%) (Auto) 24.8, Monocytes (%) (Auto) 9.0H, Eosinophils (%) (Auto) 2.7, Basophils (%) (Auto) 0.7, Neutrophils # (Auto) 3.7, Lymphocytes # (Auto) 1.5, Monocytes # (Auto) 0.5, Eosinophils # (Auto) 0.2, Basophils # (Auto) 0.0, Nucleated Red Blood Cells % (auto) 0.0, Anion Gap -1L, Glomerular Filtration Rate 8.9L, Blood Urea Nitrogen 25H, Creatinine 6.65H, Sodium Level 137, Potassium Level 4.8, Chloride Level 103, Carbon Dioxide Level 35H, Calcium Level 9.1 Current Medications Current Medications Current Medications Acetaminophen (Tylenol Tab) 650 mg Q4HP PRN PO fever/MILD PAIN (PS 1-4); Start 08/15/18 at 15:15 Albuterol Sulfate (Proventil Neb) 2.5 mg RQ4H NEB Last administered on 08/16/18 at 04:00; Start 08/15/18 at 16:00; Stop 08/16/18 at 10:32; Status DC Albuterol/ Ipratropium (Duoneb (Ipr 0.5mg/Alb 2.5mg)) 3 ml Q2HP PRN NEB SOB/WHEEZING; Start 08/16/18 at 11:00 Albuterol/ Ipratropium (Duoneb (Ipr 0.5mg/Alb 2.5mg)) 3 ml Q6HP PRN NEB SOB/WHEEZING; Start 08/15/18 at 15:15; Stop 08/16/18 at 10:32; Status DC Albuterol/ Ipratropium (Duoneb (Ipr 0.5mg/Alb 2.5mg)) 3 ml RQ4H NEB Last administered on 08/19/18 15:26; Start 08/16/18 at 12:00 Amlodipine Besylate (Norvasc) 2.5 mg QHS PO Last administered on 08/19/18 20:43; Start 08/15/18 at 21:00 Benzonatate (Tessalon Perles) 200 mg TID PO Last administered on 08/20/18 08:14; Start 08/15/18 at 16:00 Bisacodyl (Dulcolax Suppository) 10 mg DAILYPRN PRN [place] CONSTIPATION; Start 08/15/18 at 15:15 Calcium Carbonate (Tums) 1,000 mg Q4HP PRN PO HEARTBURN; Start 08/15/18 at 15:15 Carvedilol (COReg) 12.5 mg BID PO Last administered on 08/20/18 08:14; Start 08/15/18 at 21:00 Cetirizine HCl (ZyrTEC) 10 mg DAILY PO Last administered on 08/20/18 08:13; Start 08/16/18 at 09:00 Clopidogrel Bisulfate (PLAVix) 75 mg DAILY PO Last administered on 08/20/18 08:14; Start 08/16/18 at 09:00 Codeine Phosphate/ Guaifenesin (Robitussin Ac) 5 ml Q12H PO Last administered on 08/17/18 08:15; Start 08/16/18 at 09:00; Stop 08/17/18 at 09:54; Status DC Darbepoetin Donny (Aranesp (Dialysis Use)) 100 mcg HD IV ; Start 08/16/18 at 12:45 Dextrose (Dextrose 50%) 25 ml ASDIRECTED PRN IV SEE LABEL COMMENTS; Start 08/15/18 at 15:15 Docusate Sodium (Colace) 100 mg BID PO Last administered on 08/19/18at 20:42; Start 08/15/18 at 21:00 Fluticasone Propionate (Flonase 0.05% Nasal [place]) 1 spray BID NARES Last administered on 7/15/19at 08:15; Start 08/15/18 at 21:00 Gabapentin (Neurontin) 100 mg BID PO Last administered on 08/20/18at 08:13; Start 08/15/18 at 21:00 Glucagon (Glucagon) 1 mg ASDIRECTED PRN SC SEE LABEL COMMENTS; Start 08/15/18 at 15:15 Glucose (Glucose) 16 GM ASDIRECTED PRN PO SEE LABEL COMMENTS; Start 08/15/18 at 15:15 Guaifenesin (Robitussin Tab) 400 mg TID PO Last administered on 08/20/18at 08:14; Start 08/17/18 at 10:00 Guaifenesin (Robitussin Tab) 400 mg TID PO ; Start 08/17/18 at 16:00; Stop 08/17/18 at 16:00; Status DC Guaifenesin (Robitussin) 10 ml Q4HP PRN PO COUGH; Start 08/15/18 at 15:15; Stop 08/17/18 at 09:54; Status DC Heparin Sodium (Porcine) (Heparin) 5,000 units Q8H SC Last administered on at 06:01; Start 08/15/18 at 22:00 Insulin Human Lispro (HumaLOG INSULIN) SEE PROTOCOL TABLE AC SC Last administered on 08/20/18at 08:15; Start 08/15/18 at 17:30 Insulin Human Lispro (HumaLOG INSULIN) SEE PROTOCOL TABLE QHS SC ; Start 08/15/18 at 21:00 Iron (Venofer) 100 mg HD IV ; Start 08/17/18 at 12:30 Levofloxacin (Levaquin) 250 mg DAILY@06 PO Last administered on 08/20/18at 06:01; Start 08/16/18 at 06:00; Stop 08/20/18 at 06:01; Status DC Ondansetron HCl (Zofran) 4 mg Q6HP PRN PO NAUSEA; Start 08/15/18 at 15:15 Pantoprazole Sodium (Protonix) 40 mg DAILY PO Last administered on 08/20/18at 08:13; Start 08/16/18 at 09:00 Rosuvastatin Calcium (Crestor) 10 mg QHS PO Last administered on 08/19/18at 20:48; Start 08/15/18 at 21:00 Salmeterol Xinafoate/ Fluticasone (Advair Hfa 230/ 21) 2 puff BID INH Last administered on 08/20/18 07:29; Start 08/15/18 at 21:00 Senna (Senokot) 1 tab QHS PO Last administered on 08/18/18 20:58; Start 08/15/18 at 21:00 Sevelamer Carbonate (Renvela) 1,600 mg WM PO Last administered on 08/20/18 08:13; Start 08/15/18 at 18:00 Zinc Oxide (Boudreauxs Butt Paste) sacrum BID TOP Last administered on 08/20/18 08:15; Start 08/15/18 at 21:00 SHANNAN OLMOS MD Aug 20, 2018 10:06
[2018-08-20] MEDS ORDERED: HEPARIN 1,000 UNITS/ML 10ML VIAL (FOR RADIOLOGY& DIALYSIS ONLY) IV ONE (11:30)
[2018-08-20 20:00] VITALS: BP 163/73
[2018-08-20] MEDS: ROSUVASTATIN 10 MG TAB (CRESTOR) PO SCH (20:45)
[2018-08-20] MEDS: SENNA 8.6 MG TAB (SENOKOT) PO SCH (20:47)
[2018-08-21] MEDS: IPRATROPIUM 0.5MG/ALBUTEROL 2.5MG INH SOL UD 3ML (DUONEB)(J7620) NEB SCH ×6 (04:00→23:11)
[2018-08-21] MEDS: HEPARIN SOD (PORCINE) 5000 UNITS/ML VIAL SC SCH ×3 (05:47→21:31)
[2018-08-21 06:00] VITALS: BP 156/69
--- NOTE | 2018-08-21 06:26 | IPN ---
DATE OF VISIT: 08/20/2018 SUBJECTIVE: The patient is seen and examined this afternoon in the hemodialysis unit receiving his maintenance treatment. He is drowsy but easily arousable. There are no acute events reported. He is tolerating dialysis without issues. PHYSICAL EXAMINATION: VITAL SIGNS: Temperature 98.5, pulse 82, respiratory rate 18, blood pressure 163/73, saturating 94% on room air. Intake yesterday was not fully recorded. Dialysis today removed 2500, weight in the bed scale today is not recorded. GENERAL: The patient is seen in the hemodialysis unit receiving his treatments, drowsy but easily arousable. Neck: Neck is supple. Jugular veins were not elevated. HEENT: Ears, nose and throat are unremarkable. Heart: Heart sounds are regular S1-S2. Lungs: Lungs show occasional expiratory wheeze. Otherwise clear to auscultation. Abdomen: Soft and nontender. There are bowel sounds. Extremities: The left upper extremity fistula is presently in use but wound is not examined. The lower extremities are negative for edema. LABORATORY DATA: White count 5.9, hemoglobin 9.0, platelet 179, sodium 137, potassium 4.8. INPATIENT MEDICATIONS: Reviewed by myself and are unchanged from prior, PROBLEMS: 1. Endstage renal disease on hemodialysis on Monday, Monday, Monday maintenance schedule. The patient is dialyzed today, he is back on his usual schedule. His electrolytes and volume status are acceptable. His fistula is in good use. He is well dialyzed. No changes are being made to the chronic prescription. We will continue to see him on dialysis days only. 2. Hypertension. Blood pressures have been mildly elevated today, systolic in the 160s but are likely to improve with hemodialysis and fluid removal. 2.5 liters were removed today. I am making no changes to his current regimen of amlodipine and Carvedilol. 3. Anemia related to chronic renal failure and inflammatory state. He continues on Aranesp and Venofer with hemodialysis. His hemoglobin is suboptimal but stable at 9.0 and overall has improved from prior.
[2018-08-21] MEDS: ADVAIR HFA 230/21MCG INHALER INH SCH ×2 (07:14→21:00)
[2018-08-21] MEDS: HumaLOG INSULIN (NovoLOG) PER UNIT SC SCH ×4 (07:30→21:00)
[2018-08-21] MEDS: PANTOPRAZOLE 40MG TAB (PROTONIX) PO SCH (08:44)
[2018-08-21] MEDS: guaiFENesin 200 MG TAB PO SCH ×3 (08:44→21:30)
[2018-08-21] MEDS: DOCUSATE SODIUM 100 MG CAP PO SCH ×2 (08:44→21:30)
[2018-08-21] MEDS: GABAPENTIN 100 MG CAP PO SCH ×2 (08:44→21:30)
[2018-08-21] MEDS: BENZONATATE 100 MG CAP PO SCH ×3 (08:44→21:30)
[2018-08-21] MEDS: (RENVELA) SEVELAMER **CARBONate** 800 MG TAB PO SCH ×3 (08:44→17:39)
[2018-08-21] MEDS: CLOPIDOGREL 75 MG TAB PO SCH (08:44)
[2018-08-21] MEDS: CETIRIZINE (ZyrTEC) 10 MG TAB PO SCH (08:44)
[2018-08-21] MEDS: BOUDREAUX'S BUTT PASTE TOP SCH ×2 (08:45→21:32)
[2018-08-21] MEDS: FLUTICASONE PROP 0.05% NASAL SPRAY 16 GM (FLONASE) NARES SCH ×2 (08:45→21:31)
[2018-08-21] MEDS: CARVedilol 12.5 MG TAB PO SCH ×2 (08:45→21:31)
--- NOTE | 2018-08-21 10:16 | IPNPDOC ---
PM&R Progress Note DATE OF SERVICE: Aug 21, 2018 [place] [place] Progress Note Subjective: Patient reporting he is eager to go home at the end of this week. He reports his cough is still much better. REVIEW OF SYSTEMS: The following is a completed review of systems and has been reviewed. Review of systems otherwise unremarkable. PAIN: Patient self reports no pain EYES: no recent vision loss EARS, NOSE, & THROAT: denies dysphagia or throat pain CARDIOVASCULAR: denies chest pain or palpitations PULMONARY: Negative. Denies shortness of breath, +cough (improving) GASTROINTESTINAL: denies diarrhea/constipation GENITOURINARY: denies dysuria or hematuria MUSCULOSKELETAL: weakness in all 4 extremities NEUROLOGICAL: mild cognitive decline HEMATOLOGICAL: Negative SKIN: arterial/diabetic foot ulcers PSYCHIATRIC: Unremarkable All other review of systems found to be negative. PHYSICAL EXAMINATION: VITAL SIGNS: Please see below. GENERAL: Pleasant and cooperative. No acute distress. HEENT: PERRL. Extraocular movements intact. Clear conjunctiva CARDIOVASCULAR: Regular rate and rhythm. No murmurs, rubs, or gallops LUNGS: Clear to auscultation bilaterally. No wheezes. No rhonchi ABDOMEN: Soft, nontender, nondistended. Positive bowel sounds. Normal active bowel sounds NEUROLOGICAL: Alert and oriented times three, slow to respond Cranial nerves II through XII grossly intact. Sensation mildly diminished bilat LE in stocking pattern +babinksi bilat, brisk patellar reflexes EXTREMITIES: 4\5 strength bilateral upper extremities. 4\5 strength right lower extremity. 4/5 strength in left lower extremity. SKIN: sacrum without ulcers, bilateral toe ulcers and left lateral foot ulcer with scant serosanguineous drainage ASSESSMENT:68-year-old M with past medical history of ESRD on HD with multiple CVAs who presents status post cardiac arrest with metabolic encephalopathy and worsening peripheral neuropathy leading to mobility and ADL impairment. PLAN: 1. Rehab: PT- strengthen LE, improve proprioception and balance, maintain ROM of LE joints- CG-supervision for ambulation and ADLs OT- strengthen UE and fine motor skills for optimal ADL managements, maintain ROM of UE joints DIRECTOR BUSINESS- cognitive evaluation in setting of recent metabolic encephalopathy, downgraded diet today for clinical concern for aspiration, currently on puree and honey thickened, patient declining MBS stating he wishes to eat food and will not get a PEG, he understands the risk of aspiration, but wants to maintain his quality of life 2. Neuro: pmh multiple strokes with new cognitive impairments following cardiac arrest, avoid deliriogenic agents, monitor for seizures, currently off anti- epileptics, recent EEG negative for seizure activity -continue statin and Plavix for secondary stroke prevention -peripheral and vascular neuropathy causing gait impairment 3. Resp: s/p course of Levofloxacin for suspected pneumonia, c/u breathing treatments and cough suppressants-cough improving -repeat CXR ordered 08/16/18 showing no infiltrate 4. Cardiac: pmh CAD s/p CABG and PVD s/p multiple angiograms, c/u Plavix- f/u with Dr. Blank as outpatient -HTN- c/u BP meds, medicine consulted to assist in management - recent acute on chronic CHF, monitor for fluid overload, appears stable now 5. Endo: pmh DM with neuropathy, continue insulin coverage and ISS, adjust prn 6. Renal: ESRD on HD, c/u Sevelamer, renal consulted 7. DVT ppx: heparin and TEDs 8. GI ppx: Protonix 9. Skin: skin checks q-shift, cover toe ulcers with optifoam- will need f/u with Dr. Blue 10. Dispo: TBD 11. DNR Allergies Coded Allergies: aspirin (Verified Allergy, Severe, CLOSES AIRWAY, 06/15/18) Vital Signs Vital Signs Date Time Temp Pulse Resp B/P (MAP) Pulse Ox O2 Delivery O2 Flow Rate FiO2 08/21/18 08:45 75 156/69 08/21/18 06:00 98.1 18 97 Laboratory Data Labs 24H Laboratory Tests 2 08/20/18 11:59: Bedside Glucose (Misc Panel) 123H 08/20/18 17:56: Bedside Glucose (Misc Panel) 102 08/20/18 19:55: Bedside Glucose (Misc Panel) 175H 08/21/18 05:45: Bedside Glucose (Misc Panel) 89 Current Medications Current Medications Current Medications Acetaminophen (Tylenol Tab) 650 mg Q4HP PRN PO fever/MILD PAIN (PS 1-4); Start 08/15/18 at 15:15 Albuterol Sulfate (Proventil Neb) 2.5 mg RQ4H NEB Last administered on 08/16/18at 04:00; Start 08/15/18 at 16:00; Stop 08/16/18 at 10:32; Status DC Albuterol/ Ipratropium (Duoneb (Ipr 0.5mg/Alb 2.5mg)) 3 ml Q2HP PRN NEB SOB/WHEEZING; Start 08/16/18 at 11:00 Albuterol/ Ipratropium (Duoneb (Ipr 0.5mg/Alb 2.5mg)) 3 ml Q6HP PRN NEB SOB/WHEEZING; Start 08/15/18 at 15:15; Stop 08/16/18 at 10:32; Status DC Albuterol/ Ipratropium (Duoneb (Ipr 0.5mg/Alb 2.5mg)) 3 ml RQ4H NEB Last administered on 08/20/18at 23:42; Start 08/16/18 at 12:00 Amlodipine Besylate (Norvasc) 2.5 mg QHS PO Last administered on 08/20/18at 20:47; Start 08/15/18 at 21:00 Benzonatate (Tessalon Perles) 200 mg TID PO Last administered on 08/21/18at 08:44; Start 08/15/18 at 16:00 Bisacodyl (Dulcolax Suppository) 10 mg DAILYPRN PRN DC CONSTIPATION; Start 08/15/18 at 15:15 Calcium Carbonate (Tums) 1,000 mg Q4HP PRN PO HEARTBURN; Start 08/15/18 at 15:15 Carvedilol (COReg) 12.5 mg BID PO Last administered on 08/21/18at 08:45; Start 08/15/18 at 21:00 Cetirizine HCl (ZyrTEC) 10 mg DAILY PO Last administered on 08/21/18at 08:44; Start 08/16/18 at 09:00 Clopidogrel Bisulfate (PLAVix) 75 mg DAILY PO Last administered on 08/21/18at 08:44; Start 08/16/18 at 09:00 Codeine Phosphate/ Guaifenesin (Robitussin Ac) 5 ml Q12H PO Last administered on 08/17/18at 08:15; Start 08/16/18 at 09:00; Stop 08/17/18 at 09:54; Status DC Darbepoetin Donny (Aranesp (Dialysis Use)) 100 mcg HD IV ; Start 08/16/18 at 12 :45 Dextrose (Dextrose 50%) 25 ml ASDIRECTED PRN IV SEE LABEL COMMENTS; Start 08/15/18 at 15:15 Docusate Sodium (Colace) 100 mg BID PO Last administered on 08/21/18at 08:44; Start 08/15/18 at 21:00 Fluticasone Propionate (Flonase 0.05% Nasal [place]) 1 spray BID NARES Last administered on 08/21/18at 08:45; Start 08/15/18 at 21:00 Gabapentin (Neurontin) 100 mg BID PO Last administered on 08/21/18at 08:44; Start 08/15/18 at 21:00 Glucagon (Glucagon) 1 mg ASDIRECTED PRN SC SEE LABEL COMMENTS; Start 08/15/18 at 15:15 Glucose (Glucose) 16 GM ASDIRECTED PRN PO SEE LABEL COMMENTS; Start 08/15/18 at 15:15 Guaifenesin (Robitussin Tab) 400 mg TID PO Last administered on 08/21/18at 08:44; Start 08/17/18 at 10:00 Guaifenesin (Robitussin Tab) 400 mg TID PO ; Start 08/17/18 at 16:00; Stop 08/17/18 at 16:00; Status DC Guaifenesin (Robitussin) 10 ml Q4HP PRN PO COUGH; Start 08/15/18 at 15:15; St op 08/17/18 at 09:54; Status DC Heparin Sodium (Porcine) (Heparin) 5,000 units Q8H SC Last administered on 08/21/18at 05:47; Start 08/15/18 at 22:00 Insulin Human Lispro (HumaLOG INSULIN) SEE PROTOCOL TABLE AC SC Last administered on 08/20/18at 18:01; Start 08/15/18 at 17:30 Insulin Human Lispro (HumaLOG INSULIN) SEE PROTOCOL TABLE QHS SC ; Start 08/15/18 at 21:00 Iron (Venofer) 100 mg HD IV ; Start 08/17/18 at 12:30 Levofloxacin (Levaquin) 250 mg DAILY@06 PO Last administered on 08/20/18at 06:01; Start 08/16/18 at 06:00; Stop 08/20/18 at 06:01; Status DC Ondansetron HCl (Zofran) 4 mg Q6HP PRN PO NAUSEA; Start 08/15/18 at 15:15 Pantoprazole Sodium (Protonix) 40 mg DAILY PO Last administered on 08/21/18 08:44; Start 08/16/18 at 09:00 Rosuvastatin Calcium (Crestor) 10 mg QHS PO Last administered on 08/20/18 20:45; Start 08/15/18 at 21:00 Salmeterol Xinafoate/ Fluticasone (Advair Hfa 230/ 21) 2 puff BID INH Last administered on 08/21/18 07:14; Start 08/15/18 at 21:00 Senna (Senokot) 1 tab QHS PO Last administered on 08/18/18 20:58; Start 08/15/18 at 21:00 Sevelamer Carbonate (Renvela) 1,600 mg WM PO Last administered on 08/21/18 08:44; Start 08/15/18 at 18:00 Zinc Oxide (Boudreauxs Butt Paste) sacrum BID TOP Last administered on 08/21/18 08:45; Start 08/15/18 at 21:00 SHANNAN OLMOS MD Aug 21, 2018 10:16
[2018-08-21 14:00] VITALS: BP 129/63
[2018-08-21 20:00] VITALS: BP 146/67
[2018-08-21] MEDS: ROSUVASTATIN 10 MG TAB (CRESTOR) PO SCH (21:30)
[2018-08-21] MEDS: SENNA 8.6 MG TAB (SENOKOT) PO SCH (21:30)
[2018-08-22] MEDS: IPRATROPIUM 0.5MG/ALBUTEROL 2.5MG INH SOL UD 3ML (DUONEB)(J7620) NEB SCH ×6 (04:00→21:31)
[2018-08-22] MEDS: HEPARIN SOD (PORCINE) 5000 UNITS/ML VIAL SC SCH ×3 (05:33→21:02)
[2018-08-22 06:00] VITALS: BP 141/69
[2018-08-22] MEDS: ADVAIR HFA 230/21MCG INHALER INH SCH ×2 (06:24→21:31)
[2018-08-22 06:42] LABS: HEMATOCRIT 30.3 % (42.0-52.0); HEMOGLOBIN 9.4 g/dl (13.5-17.5); MEAN CORPUSCULAR HEMOGLOBIN 31.5 pg (27.0-33.0); MEAN CORPUSCULAR VOLUME 101.7 fl (80.0-96.0); PLATELET COUNT, AUTOMATED 127 10^3/uL (150-450); RED BLOOD COUNT 2.98 10^6/uL (4.30-6.10); WHITE BLOOD COUNT 6.3 10^3/uL (4.0-10.0)
[2018-08-22 07:08] LABS: CALCIUM LEVEL 9.3 MG/DL (8.8-10.2); CREATININE FOR GFR 6.22 MG/DL (0.70-1.30); GLOMERULAR FILTRATION RATE 9.6 (>49); POTASSIUM SERUM 4.5 MEQ/L (3.5-5.1)
[2018-08-22] MEDS: HumaLOG INSULIN (NovoLOG) PER UNIT SC SCH (07:30)
[2018-08-22] MEDS: CETIRIZINE (ZyrTEC) 10 MG TAB PO SCH (09:51)
[2018-08-22] MEDS: CARVedilol 12.5 MG TAB PO SCH ×2 (09:51→21:01)
[2018-08-22] MEDS: CLOPIDOGREL 75 MG TAB PO SCH (09:51)
[2018-08-22] MEDS: PANTOPRAZOLE 40MG TAB (PROTONIX) PO SCH (09:51)
[2018-08-22] MEDS: DOCUSATE SODIUM 100 MG CAP PO SCH ×2 (09:51→21:01)
[2018-08-22] MEDS: guaiFENesin 200 MG TAB PO SCH ×3 (09:52→21:08)
[2018-08-22] MEDS: BENZONATATE 100 MG CAP PO SCH ×3 (09:52→21:02)
[2018-08-22] MEDS: FLUTICASONE PROP 0.05% NASAL SPRAY 16 GM (FLONASE) NARES SCH ×2 (09:52→21:02)
[2018-08-22] MEDS: GABAPENTIN 100 MG CAP PO SCH ×2 (09:52→21:01)
[2018-08-22] MEDS: (RENVELA) SEVELAMER **CARBONate** 800 MG TAB PO SCH ×3 (09:52→17:59)
[2018-08-22] MEDS: BOUDREAUX'S BUTT PASTE TOP SCH ×2 (09:53→21:02)
--- NOTE | 2018-08-22 10:21 | IPNPDOC ---
PM&R Progress Note DATE OF SERVICE: Aug 22, 2018 [employer] Progress Note Subjective: Patient reporting continued improvement in endurance and would like to go home Monday if possible, but was told it would have to be Monday, the day after dialysis. REVIEW OF SYSTEMS: The following is a completed review of systems and has been reviewed. Review of systems otherwise unremarkable. PAIN: Patient self reports no pain EYES: no recent vision loss EARS, NOSE, & THROAT: denies dysphagia or throat pain CARDIOVASCULAR: denies chest pain or palpitations PULMONARY: Negative. Denies shortness of breath, +cough (improving) GASTROINTESTINAL: denies diarrhea/constipation GENITOURINARY: denies dysuria or hematuria MUSCULOSKELETAL: weakness in all 4 extremities NEUROLOGICAL: mild cognitive decline HEMATOLOGICAL: Negative SKIN: arterial/diabetic foot ulcers PSYCHIATRIC: Unremarkable All other review of systems found to be negative. PHYSICAL EXAMINATION: VITAL SIGNS: Please see below. GENERAL: Pleasant and cooperative. No acute distress. HEENT: PERRL. Extraocular movements intact. Clear conjunctiva CARDIOVASCULAR: Regular rate and rhythm. No murmurs, rubs, or gallops LUNGS: Clear to auscultation bilaterally. No wheezes. No rhonchi ABDOMEN: Soft, nontender, nondistended. Positive bowel sounds. Normal active bowel sounds NEUROLOGICAL: Alert and oriented times three, slow to respond Cranial nerves II through XII grossly intact. Sensation mildly diminished bilat LE in stocking pattern +babinksi bilat, brisk patellar reflexes EXTREMITIES: 4\5 strength bilateral upper extremities. 4\5 strength right lower extremity. 4/5 strength in left lower extremity. SKIN: sacrum without ulcers, bilateral toe ulcers and left lateral foot ulcer with scant serosanguineous drainage ASSESSMENT:68-year-old M with past medical history of ESRD on HD with multiple CVAs who presents status post cardiac arrest with metabolic encephalopathy and worsening peripheral neuropathy leading to mobility and ADL impairment. PLAN: 1. Rehab: PT- strengthen LE, improve proprioception and balance, maintain ROM of LE joints- CG-supervision for ambulation and ADLs OT- strengthen UE and fine motor skills for optimal ADL managements, maintain ROM of UE joints PAID SEARCH ANALYST- cognitive evaluation in setting of recent metabolic encephalopathy, downgraded diet today for clinical concern for aspiration, currently on puree and honey thickened, patient declining MBS stating he wishes to eat food and will not get a PEG, he understands the risk of aspiration, but wants to maintain his quality of life 2. Neuro: pmh multiple strokes with new cognitive impairments following cardiac arrest, avoid deliriogenic agents, monitor for seizures, currently off anti-epileptics, recent EEG negative for seizure activity -continue statin and Plavix for secondary stroke prevention -peripheral and vascular neuropathy causing gait impairment 3. Resp: s/p course of Levofloxacin for suspected pneumonia, c/u breathing treatments and cough suppressants-cough improving -repeat CXR ordered 08/16/18 showing no infiltrate 4. Cardiac: pmh CAD s/p CABG and PVD s/p multiple angiograms, c/u Plavix- f/u with Dr. Blank as outpatient -HTN- c/u BP meds, medicine consulted to assist in management - recent acute on chronic CHF, monitor for fluid overload, appears stable now 5. Endo: pmh DM with neuropathy, mild hypoglycemia, will d/c ISS and check FS BID, adjust prn 6. Renal: ESRD on HD, c/u Sevelamer, renal consulted 7. DVT ppx: heparin and TEDs 8. GI ppx: Protonix 9. Skin: skin checks q-shift, cover toe ulcers with optifoam- will need f/u with Dr. Blue 10. Dispo: 08/25/18 to home with 11. DNR Allergies Coded Allergies: aspirin (Verified Allergy, Severe, CLOSES AIRWAY, 06/15/18) Vital Signs Vital Signs Date Time Temp Pulse Resp B/P (MAP) Pulse Ox O2 Delivery O2 Flow Rate FiO2 08/22/18 09:51 78 141/69 08/22/18 06:00 98.3 18 94 Laboratory Data CBC/BMP Laboratory Tests 08/22/18 06:08 Red Blood Count 2.98 L, Mean Corpuscular Volume 101.7 H, Mean Corpuscular Hemoglobin 31.5, Mean Corpuscular Hemoglobin Concent 31.0 L, Red Cell Distribution Width 15.8 H, Calcium Level 9.3 Labs 24H Laboratory Tests 2 08/21/18 11:27: Bedside Glucose (Misc Panel) 205H 08/21/18 16:46: Bedside Glucose (Misc Panel) 67L 08/21/18 17:35: Bedside Glucose (Misc Panel) 104 08/21/18 20:51: Bedside Glucose (Misc Panel) 217H 08/22/18 05:42: Bedside Glucose (Misc Panel) 92 08/22/18 06:08: Nucleated Red Blood Cells % (auto) 0.0, Anion Gap 5L, Glomerular Filtration Rate 9.6L, Blood Urea Nitrogen 23H, Creatinine 6.22H, Sodium Level 137, Potassium Level 4.5, Chloride Level 99, Carbon Dioxide Level 33H, Calcium Level 9.3 Current Medications Current Medications Current Medications Acetaminophen (Tylenol Tab) 650 mg Q4HP PRN PO fever/MILD PAIN (PS 1-4); Start 08/15/18 at 15:15 Albuterol Sulfate (Proventil Neb) 2.5 mg RQ4H NEB Last administered on 12/25at 04:00; Start 08/15/18 at 16:00; Stop 08/16/18 at 10:32; Status DC Albuterol/ Ipratropium (Duoneb (Ipr 0.5mg/Alb 2.5mg)) 3 ml Q2HP PRN NEB SOB/WHEEZING; Start 08/16/18 at 11:00 Albuterol/ Ipratropium (Duoneb (Ipr 0.5mg/Alb 2.5mg)) 3 ml Q6HP PRN NEB SOB/WHEEZING; Start 08/15/18 at 15:15; Stop 08/16/18 at 10:32; Status DC Albuterol/ Ipratropium (Duoneb (Ipr 0.5mg/Alb 2.5mg)) 3 ml RQ4H NEB Last administered on 08/21/18at 23:11; Start 08/16/18 at 12:00 Amlodipine Besylate (Norvasc) 2.5 mg QHS PO Last administered on 08/21/18at 21:31; Start 08/15/18 at 21:00 Benzonatate (Tessalon Perles) 200 mg TID PO Last administered on 08/22/18at 09:52; Start 08/15/18 at 16:00 Bisacodyl (Dulcolax Suppository) 10 mg DAILYPRN PRN ND CONSTIPATION; Start 08/15/18 at 15:15 Calcium Carbonate (Tums) 1,000 mg Q4HP PRN PO HEARTBURN; Start 08/15/18 at 15:15 Carvedilol (COReg) 12.5 mg BID PO Last administered on 08/22/18 09:51; Start 08/15/18 at 21:00 Cetirizine HCl (ZyrTEC) 10 mg DAILY PO Last administered on 08/22/18 09:51; Start 08/16/18 at 09:00 Clopidogrel Bisulfate (PLAVix) 75 mg DAILY PO Last administered on 08/22/18at 09:51; Start 08/16/18 at 09:00 Codeine Phosphate/ Guaifenesin (Robitussin Ac) 5 ml Q12H PO Last administered on 08/17/18at 08:15; Start 08/16/18 at 09:00; Stop 08/17/18 at 09:54; Status DC Darbepoetin Donny (Aranesp (Dialysis Use)) 100 mcg HD IV ; Start 08/16/18 at 12: 45 Dextrose (Dextrose 50%) 25 ml ASDIRECTED PRN IV SEE LABEL COMMENTS; Start 08/15/18 at 15:15 Docusate Sodium (Colace) 100 mg BID PO Last administered on 08/22/18 09:51; Start 08/15/18 at 21:00 Fluticasone Propionate (Flonase 0.05% Nasal [place]) 1 spray BID NARES Last administered on 08/22/18 09:52; Start 08/15/18 at 21:00 Gabapentin (Neurontin) 100 mg BID PO Last administered on 08/22/18at 09:52; Start 08/15/18 at 21:00 Glucagon (Glucagon) 1 mg ASDIRECTED PRN SC SEE LABEL COMMENTS; Start 08/15/18 at 15:15 Glucose (Glucose) 16 GM ASDIRECTED PRN PO SEE LABEL COMMENTS; Start 08/15/18 at 15:15 Guaifenesin (Robitussin Tab) 400 mg TID PO Last administered on 08/22/18at 09:52; Start 08/17/18 at 10:00 Guaifenesin (Robitussin Tab) 400 mg TID PO ; Start 08/17/18 at 16:00; Stop 08/17/18 at 16:00; Status DC Guaifenesin (Robitussin) 10 ml Q4HP PRN PO COUGH; Start 08/15/18 at 15:15; Stop 08/17/18 at 09:54; Status DC Heparin Sodium (Porcine) (Heparin) 5,000 units Q8H SC Last administered on 08/22/18at 05:33; Start 08/15/18 at 22:00 Insulin Human Lispro (HumaLOG INSULIN) SEE PROTOCOL TABLE AC SC Last administered on 08/21/18at 12:26; Start 08/15/18 at 17:30 Insulin Human Lispro (HumaLOG INSULIN) SEE PROTOCOL TABLE QHS SC ; Start 08/15/18 at 21:00 Iron (Venofer) 100 mg HD IV ; Start 08/17/18 at 12:30 Levofloxacin (Levaquin) 250 mg DAILY@06 PO Last administered on 08/20/18at 06:01; Start 08/16/18 at 06:00; Stop 08/20/18 at 06:01; Status DC Miscellaneous (Unresolved Clarification Entry) SEE LABEL COMMENTS DAILY XX ; Start 08/21/18 at 09:00 Ondansetron HCl (Zofran) 4 mg Q6HP PRN PO NAUSEA; Start 08/15/18 at 15:15 Pantoprazole Sodium (Protonix) 40 mg DAILY PO Last administered on 08/22/18at 09:51; Start 08/16/18 at 09:00 Rosuvastatin Calcium (Crestor) 10 mg QHS PO Last administered on 08/21/18 21:30; Start 08/15/18 at 21:00 Salmeterol Xinafoate/ Fluticasone (Advair Hfa 230/ 21) 2 puff BID INH Last administered on 08/22/18 06:24; Start 08/15/18 at 21:00 Senna (Senokot) 1 tab QHS PO Last administered on 08/21/18at 21:30; Start 08/15/18 at 21:00 Sevelamer Carbonate (Renvela) 1,600 mg WM PO Last administered on 08/22/18 09:52; Start 08/15/18 at 18:00 Zinc Oxide (Boudreauxs Butt Paste) sacrum BID TOP Last administered on 08/22/18 09:53; Start 08/15/18 at 21:00 SHANNAN OLMOS MD Aug 22, 2018 10:21
[2018-08-22] MEDS ORDERED: HEPARIN 1,000 UNITS/ML 10ML VIAL (FOR RADIOLOGY& DIALYSIS ONLY) IV ONE (11:30)
[2018-08-22] MEDS: ROSUVASTATIN 10 MG TAB (CRESTOR) PO SCH (21:01)
[2018-08-22] MEDS: SENNA 8.6 MG TAB (SENOKOT) PO SCH (21:01)
--- NOTE | 2018-08-22 22:25 | IPN ---
DATE: 08/22/2018 SUBJECTIVE: Ayaan was seen and examined this morning in the hemodialysis unit receiving his treatment. Denies any complaints. Tentative discharge date is August 25 from the rehab unit. Vital signs: Temperature 98.3, pulse 78, respiratory rate 18, blood pressure 141/69, saturating 94% on room air. Intake yesterday was not fully recorded. Dialysis today removed 2 liters. Weight in the bed scale today is not recorded. General: The patient is seen receiving his treatment, drowsy but easily arousable, awake, alert and oriented. Extraocular muscles are intact. Tongue is moist. Neck is supple. Jugular veins were not elevated. Heart sounds are regular S1-S2. There is no edema in the peripheries. Lungs show occasional expiratory wheeze; otherwise clear to auscultation comfortable on room air. Abdomen is soft and nontender. There are bowel sounds. The left upper extremity fistula is presently in use. Neurologic: He has chronic speech impediment/ expressive aphasia, otherwise at his baseline mentation. LABORATORY DATA: White count 6.3, hemoglobin 9.4, platelet 127, sodium 137, potassium 4.5, bicarbonate 33. Inpatient medications reviewed by myself. His insulin was adjusted per the primary team. Remainder of medications are unchanged from prior. PROBLEMS: 1. End-stage renal disease on hemodialysis on Monday, Monday, Monday maintenance schedule. His electrolytes and volume status are acceptable. His fistula is in good use. He is well dialyzed. No changes are being made to the chronic prescription. We will continue to see him on dialysis days only. Two liters of fluid were removed today. 2. Hypertension. Blood pressures are acceptable and no changes are being made to his current regimen of amlodipine and Carvedilol. 3. Anemia related to chronic renal failure, hemoglobin is suboptimal at 9.4 and he continues on Aranesp and iron with hemodialysis.
[2018-08-23] MEDS: IPRATROPIUM 0.5MG/ALBUTEROL 2.5MG INH SOL UD 3ML (DUONEB)(J7620) NEB SCH ×6 (04:00→23:57)
[2018-08-23] MEDS: HEPARIN SOD (PORCINE) 5000 UNITS/ML VIAL SC SCH ×3 (05:59→21:15)
[2018-08-23 06:23] VITALS: BP 162/92
[2018-08-23] MEDS: ADVAIR HFA 230/21MCG INHALER INH SCH ×2 (08:06→19:56)
[2018-08-23] MEDS: guaiFENesin 200 MG TAB PO SCH ×3 (08:15→21:16)
[2018-08-23] MEDS: (RENVELA) SEVELAMER **CARBONate** 800 MG TAB PO SCH ×3 (08:15→17:19)
[2018-08-23] MEDS: CLOPIDOGREL 75 MG TAB PO SCH (08:15)
[2018-08-23] MEDS: PANTOPRAZOLE 40MG TAB (PROTONIX) PO SCH (08:15)
[2018-08-23] MEDS: CETIRIZINE (ZyrTEC) 10 MG TAB PO SCH (08:15)
[2018-08-23] MEDS: GABAPENTIN 100 MG CAP PO SCH ×2 (08:15→21:15)
[2018-08-23] MEDS: BENZONATATE 100 MG CAP PO SCH ×3 (08:16→21:15)
[2018-08-23] MEDS: CARVedilol 12.5 MG TAB PO SCH ×2 (08:16→21:16)
[2018-08-23] MEDS: DOCUSATE SODIUM 100 MG CAP PO SCH ×2 (08:16→21:15)
[2018-08-23] MEDS: BOUDREAUX'S BUTT PASTE TOP SCH ×2 (08:16→21:17)
[2018-08-23] MEDS: FLUTICASONE PROP 0.05% NASAL SPRAY 16 GM (FLONASE) NARES SCH ×2 (08:16→21:16)
[2018-08-23 14:00] VITALS: BP 166/79
[2018-08-23 20:00] VITALS: BP 142/65
[2018-08-23] MEDS: ROSUVASTATIN 10 MG TAB (CRESTOR) PO SCH (21:15)
[2018-08-23] MEDS: SENNA 8.6 MG TAB (SENOKOT) PO SCH (21:15)
[2018-08-24] MEDS: IPRATROPIUM 0.5MG/ALBUTEROL 2.5MG INH SOL UD 3ML (DUONEB)(J7620) NEB SCH ×5 (03:59→20:00)
[2018-08-24] MEDS: HEPARIN SOD (PORCINE) 5000 UNITS/ML VIAL SC SCH ×3 (05:20→21:18)
[2018-08-24 05:55] VITALS: BP 141/71
[2018-08-24] MEDS: ADVAIR HFA 230/21MCG INHALER INH SCH ×2 (07:59→21:02)
[2018-08-24] MEDS: DOCUSATE SODIUM 100 MG CAP PO SCH ×2 (09:00→21:17)
[2018-08-24] MEDS: BOUDREAUX'S BUTT PASTE TOP SCH ×2 (09:00→21:19)
[2018-08-24] MEDS: CLOPIDOGREL 75 MG TAB PO SCH (09:44)
[2018-08-24] MEDS: guaiFENesin 200 MG TAB PO SCH ×3 (09:44→21:18)
[2018-08-24] MEDS: CETIRIZINE (ZyrTEC) 10 MG TAB PO SCH (09:44)
[2018-08-24] MEDS: (RENVELA) SEVELAMER **CARBONate** 800 MG TAB PO SCH ×3 (09:44→17:39)
[2018-08-24] MEDS: PANTOPRAZOLE 40MG TAB (PROTONIX) PO SCH (09:44)
[2018-08-24] MEDS: GABAPENTIN 100 MG CAP PO SCH ×2 (09:44→21:17)
[2018-08-24] MEDS: BENZONATATE 100 MG CAP PO SCH ×3 (09:45→21:17)
[2018-08-24] MEDS: FLUTICASONE PROP 0.05% NASAL SPRAY 16 GM (FLONASE) NARES SCH ×2 (09:45→21:18)
[2018-08-24] MEDS: CARVedilol 12.5 MG TAB PO SCH ×2 (09:45→21:18)
[2018-08-24 11:00] LABS: HEMATOCRIT 31.9 % (42.0-52.0); HEMOGLOBIN 9.7 g/dl (13.5-17.5); MEAN CORPUSCULAR HEMOGLOBIN 31.2 pg (27.0-33.0); MEAN CORPUSCULAR HGB CONC 30.4 g/dl (32.0-36.5); MEAN CORPUSCULAR VOLUME 102.6 fl (80.0-96.0); PLATELET COUNT, AUTOMATED 118 10^3/uL (150-450); RED BLOOD COUNT 3.11 10^6/uL (4.30-6.10); WHITE BLOOD COUNT 9.6 10^3/uL (4.0-10.0)
[2018-08-24 11:18] LABS: CALCIUM LEVEL 9.1 MG/DL (8.8-10.2); CREATININE FOR GFR 6.35 MG/DL (0.70-1.30); GLOMERULAR FILTRATION RATE 9.3 (>49); POTASSIUM SERUM 4.6 MEQ/L (3.5-5.1)
[2018-08-24] MEDS ORDERED: HEPARIN 1,000 UNITS/ML 10ML VIAL (FOR RADIOLOGY& DIALYSIS ONLY) IV ONE (11:30)
[2018-08-24 21:17] VITALS: BP 142/60
[2018-08-24] MEDS: SENNA 8.6 MG TAB (SENOKOT) PO SCH (21:18)
[2018-08-24] MEDS: ROSUVASTATIN 10 MG TAB (CRESTOR) PO SCH (21:18)
[2018-08-25] MEDS: IPRATROPIUM 0.5MG/ALBUTEROL 2.5MG INH SOL UD 3ML (DUONEB)(J7620) NEB SCH ×3 (04:00→09:10)
[2018-08-25] MEDS: HEPARIN SOD (PORCINE) 5000 UNITS/ML VIAL SC SCH (06:25)
[2018-08-25 06:26] VITALS: BP 156/66
--- NOTE | 2018-08-25 06:59 | IPN ---
DATE OF SERVICE: 08/24/2018 SUBJECTIVE: Ayaan is seen and examined this morning at the bedside in the rehabilitation unit and then later in the afternoon receiving his hemodialysis treatment. He is discharge pending tomorrow. He is looking forward to attending his grandson's graduation republican. He denies any new complaints or issues. Discharge plans were discussed with him and his at the bedside. Vital signs: Temperature 98.0, pulse 77, respiratory rate 18, blood pressure 141/71, saturating 94% on room air. Intake yesterday was 1 liter. Weight in the bed scale today is not recorded. General: The patient is seen receiving his treatment awake, alert, oriented, comfortable, no acute distress. Extraocular muscles are intact. Tongue is moist. Neck is supple. Jugular veins are not elevated. Heart sounds are regular S1, S2. There is absolutely no edema in the peripheries nor in the dependent area. Lungs show symmetric air entry bilaterally. No crackle, rale, or rhonchus. Abdomen is soft and nontender. The left upper extremity fistula is presently in use. Neurologic: He has a chronic speech impediment and expressive aphasia. Otherwise, he is at his baseline mentation and cooperative with physical examination. Skin: Normal temperature and turgor. His foot wound is not examined. LABORATORIES: White count 9.6, hemoglobin 9.7, platelet 118. Sodium 134, potassium 4.6, bicarbonate 33. INPATIENT MEDICATIONS: Reviewed by me and no change from prior. PROBLEMS: 1. End-stage renal disease, on hemodialysis on Monday, Monday, Monday maintenance schedule. His electrolytes and volume status are acceptable. His fistula is in good use. He is well dialyzed. No changes are being made to the chronic prescription. He is discharge pending tomorrow and will continue his regular schedule in the outpatient hemodialysis unit. 2. Hypertension. Blood pressures are acceptable, and no changes are being made to current regimen of amlodipine and Carvedilol. 3. Anemia related to chronic renal failure. Hemoglobin is slowly improving, 9.7 today, and he does continue on the usual Aranesp and Venofer with his dialysis treatments.
[2018-08-25] MEDS: DOCUSATE SODIUM 100 MG CAP PO SCH (09:00)
[2018-08-25] MEDS: BOUDREAUX'S BUTT PASTE TOP SCH (09:00)
[2018-08-25] MEDS: ADVAIR HFA 230/21MCG INHALER INH SCH (09:10)
[2018-08-25] MEDS: guaiFENesin 200 MG TAB PO SCH (09:35)
[2018-08-25] MEDS: CETIRIZINE (ZyrTEC) 10 MG TAB PO SCH (09:35)
[2018-08-25] MEDS: (RENVELA) SEVELAMER **CARBONate** 800 MG TAB PO SCH (09:36)
[2018-08-25] MEDS: GABAPENTIN 100 MG CAP PO SCH (09:36)
[2018-08-25] MEDS: BENZONATATE 100 MG CAP PO SCH (09:36)
[2018-08-25] MEDS: PANTOPRAZOLE 40MG TAB (PROTONIX) PO SCH (09:36)
[2018-08-25] MEDS: CLOPIDOGREL 75 MG TAB PO SCH (09:36)
[2018-08-25 09:37] VITALS: BP 156/66
[2018-08-25] MEDS: CARVedilol 12.5 MG TAB PO SCH (09:37)
[2018-08-25] MEDS: FLUTICASONE PROP 0.05% NASAL SPRAY 16 GM (FLONASE) NARES SCH (09:37)
--- NOTE | 2018-08-25 10:00 | IPNPDOC ---
Subjective Date Seen The patient was seen on 08/25/18. Subjective Chief Complaint/HPI Patient seen and examined at the bedside. Reports that he is feeling much better. States that he is tentatively scheduled for discharge today. Denies any acute complaints at this time. Objective Physical Examination General Exam: Positive: Alert, Cooperative, No Acute Distress ENT Exam: Positive: Atraumatic, Mucous membr. moist/pink Neck Exam: Negative: JVD Chest Exam: Positive: Clear to auscultation, Normal air movement Heart Exam: Positive: Rate Normal, Normal S1, Normal S2 Abdomen Exam: Positive: Soft; Negative: Tenderness Psych Exam: Positive: Oriented x 3 Assessment /Plan Plan/VTE VTE Prophylaxis Ordered?: Yes Plan s/p Cardiac Arrest with successful resuscitation according to charting history ESRD on HD ([facility]) Nephrology on consultation, appreciate input--hemodialysis management Type 2 diabetes mellitus Insulin regimen as ordered Peripheral neuropathy - on Gabapentin CAD s/p CABG (2017) - Currently without angina -Continue CAD risk factor modifications with statin, Plavix , patient is allergic to aspirin Combined heart failure with acute exacerbation -Ejection fraction 40% -continue fluid restriction 1500 mL a day -Hemodialysis as scheduled by nephrology -Cardiac diet PAD -Status post left lower extremity angioplasty -Continue Plavix and statin -Continue other risk factor modifications DVT prophylaxis - Heparin VS, I&O, 24H, Bin Vital Signs/I&O Vital Signs Date Time Temp Pulse Resp B/P (MAP) Pulse Ox O2 Delivery O2 Flow Rate FiO2 08/25/18 09:37 72 156/66 08/25/18 06:26 98.4 18 95 I&O- Last 24 Hours up to 6 AM 08/25/18 06:00 Intake Total 780 ml Output Total 2000 ml Balance -1220 ml Laboratory Data 24H LABS Laboratory Tests 2 08/24/18 10:51: Nucleated Red Blood Cells % (auto) 0.0, Anion Gap 4L, Glomerular Filtration Rate 9.3L, Blood Urea Nitrogen 25H, Creatinine 6.35H, Sodium Level 134L, Potassium Level 4.6, Chloride Level 97L, Carbon Dioxide Level 33H, Calcium Level 9.1 08/24/18 17:05: Bedside Glucose (Misc Panel) 99 08/25/18 06:30: Bedside Glucose (Misc Panel) 124H CBC/BMP Laboratory Tests 08/24/18 10:51 Red Blood Count 3.11 L, Mean Corpuscular Volume 102.6 H, Mean Corpuscular Hemoglobin 31.2, Mean Corpuscular Hemoglobin Concent 30.4 L, Red Cell Distribution Width 16.5 H, Calcium Level 9.1 PIETRO GALEAS MD Aug 25, 2018 10:00
--- NOTE | 2018-08-30 12:46 | IPNPDOC ---
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 REVIEW OF SYSTEMS: The following is a completed review of systems and has been reviewed. Review of systems otherwise unremarkable. PAIN: Patient self reports no pain EYES: no recent vision loss EARS, NOSE, & THROAT: denies dysphagia or throat pain CARDIOVASCULAR: denies chest pain or palpitations PULMONARY: Negative. Denies shortness of breath, +cough (improving) GASTROINTESTINAL: denies diarrhea/constipation GENITOURINARY: denies dysuria or hematuria MUSCULOSKELETAL: weakness in all 4 extremities NEUROLOGICAL: mild cognitive decline HEMATOLOGICAL: Negative SKIN: arterial/diabetic foot ulcers PSYCHIATRIC: Unremarkable All other review of systems found to be negative. PHYSICAL EXAMINATION: VITAL SIGNS: Please see below. GENERAL: Pleasant and cooperative. No acute distress. HEENT: PERRL. Extraocular movements intact. Clear conjunctiva CARDIOVASCULAR: Regular rate and rhythm. No murmurs, rubs, or gallops LUNGS: Clear to auscultation bilaterally. No wheezes. No rhonchi ABDOMEN: Soft, nontender, nondistended. Positive bowel sounds. Normal active bowel sounds NEUROLOGICAL: Alert and oriented times three, slow to respond Cranial nerves II through XII grossly intact. Sensation mildly diminished bilat LE in stocking pattern +babinksi bilat, brisk patellar reflexes EXTREMITIES: 4\5 strength bilateral upper extremities. 4\5 strength right lower extremity. 4/5 strength in left lower extremity. SKIN: sacrum without ulcers, bilateral toe ulcers and left lateral foot ulcer with scant serosanguineous drainage ASSESSMENT:68-year-old M with past medical history of ESRD on HD with multiple CVAs who presents status post cardiac arrest with metabolic encephalopathy and worsening peripheral neuropathy leading to mobility and ADL impairment. PLAN: 1. Rehab: PT- strengthen LE, improve proprioception and balance, maintain ROM of LE joints- CG-supervision for ambulation and ADLs OT- strengthen UE and fine motor skills for optimal ADL managements, maintain ROM of UE joints INVESTIGATION OFFICER- cognitive evaluation in setting of recent metabolic encephalopathy, downgraded diet today for clinical concern for aspiration, currently on puree and honey thickened, patient declining MBS stating he wishes to eat food and will not get a PEG, he understands the risk of aspiration, but wants to maintain his quality of life 2. Neuro: pmh multiple strokes with new cognitive impairments following cardiac arrest, avoid deliriogenic agents, monitor for seizures, currently off anti- epileptics, recent EEG negative for seizure activity -continue statin and Plavix for secondary stroke prevention -peripheral and vascular neuropathy causing gait impairment 3. Resp: s/p course of Levofloxacin for suspected pneumonia, c/u breathing treatments and cough suppressants-cough improving -repeat CXR ordered 08/16/18 showing no infiltrate 4. Cardiac: pmh CAD s/p CABG and PVD s/p multiple angiograms, c/u Plavix- f/u with Dr. Blank as outpatient -HTN- c/u BP meds, medicine consulted to assist in management - recent acute on chronic CHF, monitor for fluid overload, appears stable now 5. Endo: pmh DM with neuropathy, mild hypoglycemia, will d/c ISS and check FS BID, adjust prn 6. Renal: ESRD on HD, c/u Sevelamer, renal consulted 7. DVT ppx: heparin and TEDs 8. GI ppx: Protonix 9. Skin: skin checks q-shift, cover toe ulcers with optifoam- will need f/u with Dr. Blue 10. Dispo: 08/25/18 to home with 11. DNR Allergies Coded Allergies: aspirin (Verified Allergy, Severe, CLOSES AIRWAY, 06/15/18) Vital Signs Vital Signs Date Time Temp Pulse Resp B/P (MAP) Pulse Ox O2 Delivery O2 Flow Rate FiO2 08/25/18 09:37 72 156/66 08/25/18 06:26 98.4 18 95 Current Medications Current Medications Current Medications Acetaminophen (Tylenol Tab) 650 mg Q4HP PRN PO fever/MILD PAIN (PS 1-4); Start 08/15/18 at 15:15; Stop 08/25/18 at 10:52; Status DC Albuterol Sulfate (Proventil Neb) 2.5 mg RQ4H NEB Last administered on 08/16/18at 04:00; Start 08/15/18 at 16:00; Stop 08/16/18 at 10:32; Status DC Albuterol/ Ipratropium (Duoneb (Ipr 0.5mg/Alb 2.5mg)) 3 ml Q2HP PRN NEB SOB/WHEEZING; Start 08/16/18 at 11:00; Stop 08/25/18 at 10:52; Status DC Albuterol/ Ipratropium (Duoneb (Ipr 0.5mg/Alb 2.5mg)) 3 ml Q6HP PRN NEB SOB/WHEEZING; Start 08/15/18 at 15:15; Stop 08/16/18 at 10:32; Status DC Albuterol/ Ipratropium (Duoneb (Ipr 0.5mg/Alb 2.5mg)) 3 ml RQ4H NEB Last administered on 08/24/18at 16:53; Start 08/16/18 at 12:00; Stop 08/25/18 at 10:52; Status DC Amlodipine Besylate (Norvasc) 2.5 mg QHS PO Last administered on 08/24/18at 21:18; Start 08/15/18 at 21:00; Stop 08/25/18 at 10:52; Status DC Benzonatate (Tessalon Perles) 200 mg TID PO Last administered on 08/25/18at 09:36; Start 08/15/18 at 16:00; Stop 08/25/18 at 10:52; Status DC Bisacodyl (Dulcolax Suppository) 10 mg DAILYPRN PRN CO CONSTIPATION; Start 08/15/18 at 15:15; Stop 08/25/18 at 10:52; Status DC Calcium Carbonate (Tums) 1,000 mg Q4HP PRN PO HEARTBURN; Start 08/15/18 at 15:15; Stop 08/25/18 at 10:52; Status DC Carvedilol (COReg) 12.5 mg BID PO Last administered on 08/25/18at 09:37; Start 08/15/18 at 21:00; Stop 08/25/18 at 10:52; Status DC Cetirizine HCl (ZyrTEC) 10 mg DAILY PO Last administered on 08/25/18at 09:35; Start 08/16/18 at 09:00; Stop 08/25/18 at 10:52; Status DC Clopidogrel Bisulfate (PLAVix) 75 mg DAILY PO Last administered on 08/25/18at 09:36; Start 08/16/18 at 09:00; Stop 08/25/18 at 10:52; Status DC Codeine Phosphate/ Guaifenesin (Robitussin Ac) 5 ml Q12H PO Last administered on 08/17/18at 08:15; Start 08/16/18 at 09:00; Stop 08/17/18 at 09:54; Status DC Darbepoetin Donny (Aranesp (Dialysis Use)) 100 mcg HD IV ; Start 08/16/18 at 12:45; Stop 08/25/18 at 10:52; Status DC Dextrose (Dextrose 50%) 25 ml ASDIRECTED PRN IV SEE LABEL COMMENTS; Start 08/15/18 at 15:15; Stop 08/25/18 at 10:52; Status DC Docusate Sodium (Colace) 100 mg BID PO Last administered on 08/24/18at 21:17; Start 08/15/18 at 21:00; Stop 08/25/18 at 10:52; Status DC Fluticasone Propionate (Flonase 0.05% Nasal [place]) 1 spray BID NARES Last administered on 08/25/18at 09:37; Start 08/15/18 at 21:00; Stop 08/25/18 at 10:52; Status DC Gabapentin (Neurontin) 100 mg BID PO Last administered on 08/25/18at 09:36; Start 08/15/18 at 21:00; Stop 08/25/18 at 10:52; Status DC Glucagon (Glucagon) 1 mg ASDIRECTED PRN SC SEE LABEL COMMENTS; Start 08/15/18 at 15:15; Stop 08/25/18 at 10:52; Status DC Glucose (Glucose) 16 GM ASDIRECTED PRN PO SEE LABEL COMMENTS; Start 08/15/18 at 15:15; Stop 08/25/18 at 10:52; Status DC Guaifenesin (Robitussin Tab) 400 mg TID PO Last administered on 08/25/18at 09:35; Start 08/17/18 at 10:00; Stop 08/25/18 at 10:52; Status DC Guaifenesin (Robitussin Tab) 400 mg TID PO ; Start 08/17/18 at 16:00; Stop 08/17/18 at 16:00; Status DC Guaifenesin (Robitussin) 10 ml Q4HP PRN PO COUGH; Start 08/15/18 at 15:15; St op 08/17/18 at 09:54; Status DC Heparin Sodium (Porcine) (Heparin) 5,000 units Q8H SC Last administered on 08/25/18at 06:25; Start 08/15/18 at 22:00; Stop 08/25/18 at 10:52; Status DC Insulin Human Lispro (HumaLOG INSULIN) SEE PROTOCOL TABLE AC SC Last a dministered on 08/21/18at 12:26; Start 08/15/18 at 17:30; Stop 08/22/18 at 10:19; Status DC Insulin Human Lispro (HumaLOG INSULIN) SEE PROTOCOL TABLE QHS SC ; Start 08/15/18 at 21:00; Stop 08/22/18 at 10:19; Status DC Iron (Venofer) 100 mg HD IV ; Start 08/17/18 at 12:30; Stop 08/25/18 at 10:52; Status DC Levofloxacin (Levaquin) 250 mg DAILY@06 PO Last administered on 08/20/18at 06:01; Start 08/16/18 at 06:00; Stop 08/20/18 at 06:01; Status DC Miscellaneous (Unresolved Clarification Entry) SEE LABEL COMMENTS DAILY XX ; Start 08/21/18 at 09:00; Stop 08/22/18 at 10:21; Status DC Ondansetron HCl (Zofran) 4 mg Q6HP PRN PO NAUSEA; Start 08/15/18 at 15:15; Stop 08/25/18 at 10:52; Status DC Pantoprazole Sodium (Protonix) 40 mg DAILY PO Last administered on 08/25/18at 09:36; Start 08/16/18 at 09:00; Stop 08/25/18 at 10:52; Status DC Rosuvastatin Calcium (Crestor) 10 mg QHS PO Last administered on 08/24/18at 21:18; Start 08/15/18 at 21:00; Stop 08/25/18 at 10:52; Status DC Salmeterol Xinafoate/ Fluticasone (Advair Hfa 230/ 21) 2 puff BID INH Last administered on 08/25/18at 09:10; Start 08/15/18 at 21:00; Stop 08/25/18 at 10:52; Status DC Senna (Senokot) 1 tab QHS PO Last administered on 08/24/18at 21:18; Start 08/15/18 at 21:00; Stop 08/25/18 at 10:52; Status DC Sevelamer Carbonate (Renvela) 1,600 mg WM PO Last administered on 08/25/18at 09:36; Start 08/15/18 at 18:00; Stop 08/25/18 at 10:52; Status DC Zinc Oxide (Boudreauxs Butt Paste) sacrum BID TOP Last administered on 08/24/18at 21:19; Start 08/15/18 at 21:00; Stop 08/25/18 at 10:52; Status DC SHANNAN OLMOS MD Aug 30, 2018 12:46
--- NOTE | 2018-08-31 11:17 | PMRDS ---
DATE OF ADMISSION: 08/15/2018 DATE OF DISCHARGE: 08/25/2018 CHIEF COMPLAINT/DISCHARGE DIAGNOSIS: Metabolic encephalopathy with peripheral neuropathy. HISTORY OF PRESENT ILLNESS: 68-year-old male with a possible history of end-stage renal disease on dialysis, diabetes, CAD status post coronary artery bypass graft (CABG) in 2018, and multiple CVAs, diastolic and systolic congestive heart failure (CHF), BPH, diabetic and ischemic foot ulcers, peripheral vascular disease (PVD) status post stenting on the left, cardiac arrest on 08/13/2018 while undergoing angiography of his right leg. He was resuscitated and witnessed to have seizure-like activity. CTH showed "heavy vascular calcification. Diffuse cerebral atrophy. Small vessel changes. Old bilateral lacunar infarct in the basal ganglia. No acute intracranial abnormality." Magnetic resonance imaging (MRI) brain showed no acute infarct. Electroencephalogram (EEG) was performed, which was "abnormal due to presence of generalized slowing and disorganization of background consistent with nonspecific diffuse cerebral dysfunction such as seen in moderately severe encephalopathy due to multiple potential causes including toxic, metabolic, medication related, infectious or multifocal structural brain abnormalities. No epileptiform abnormalities were seen." Neurology evaluated him and suggested Keppra to be dosed after dialysis. However, this medication was ultimately discontinued. He was found to be fluid overloaded with cough and treated with Zosyn for suspected pneumonia and given ultrafiltration dialysis. He was evaluated by therapy, found to have new impairments in mobility in activities of daily living (ADL) well below his prior level of function and deemed medically appropriate for discharge to acute rehabilitation unit (ARU) on 08/15/2018. PAST MEDICAL HISTORY: As per HPI. HOSPITAL COURSE: The patient was admitted and enrolled in comprehensive physical therapy (PT), occupational therapy (OT), speech and language pathology program. He received 24-hour nursing supervision and weekly team meetings were held to discuss his progress. The patient's cough and respiratory condition improved, and he finished up a course of his levofloxacin. The patient and his declined an official modified barium swallow test to evaluate for his dysphagia reporting that they knew he would fail the test and wanted for him to be able to enjoy eating. The patient and his also reported that they would decline of percutaneous endoscopic gastrostomy (PEG) and were opened to a modified diet during his hospital stay here and to work on strengthening his swallow. The patient's fingerstick were on the low side. He had some mild hypoglycemia and his insulin sliding scale coverage was discontinued and he was maintained just on diet. He had dialysis without any complications, and his toe ulcers were monitored and managed per Dr. Blue' recommendation. He gradually gained in strength and endurance, and his cognitive dysfunction improved to baseline. His was trained for ultimate return home. DISCHARGE MEDICATIONS: As per discharge instructions. FUNCTIONAL HISTORY UPON DISCHARGE: The patient was standby assist for all functional mobility and ambulating with a rolling walker, standby assist 200 feet, able to propel his own wheelchair 150 feet, modified independent able to negotiate 12 stairs standby assist, was trained. OCCUPATIONAL THERAPY: The patient was standby assist for functional transfers, mod assist for bathing and standby assist for grooming, moderate for dressing. The patient was deemed medically and functionally stable to return home on 08/25/2018.
== END 2018-08-25 10:35 | disposition home health service (06) | DRG 73 ==
LOC: M PM&R 17:25
PROVIDERS: ADMIT Physical Medicine & Rehabilitation; ATTEND Physical Medicine & Rehabilitation
PROC: 5A1D70Z Performance of Urinary Filtration, Intermittent, Less than 6 Hours Per Day (ICD-10-PCS; principal; 2018-08-16)
DX: E11.42 Type 2 diabetes mellitus with diabetic polyneuropathy (principal); N18.6 End stage renal disease; I50.42 Chronic combined systolic (congestive) and diastolic (congestive) heart failure; L97.929 Non-pressure chronic ulcer of unspecified part of left lower leg with unspecified severity; I13.2 Hypertensive heart and chronic kidney disease with heart failure and with stage 5 chronic kidney disease, or end stage renal disease; L97.919 Non-pressure chronic ulcer of unspecified part of right lower leg with unspecified severity; Z99.2 Dependence on renal dialysis; I25.10 Atherosclerotic heart disease of native coronary artery without angina pectoris; E11.22 Type 2 diabetes mellitus with diabetic chronic kidney disease; N40.0 Benign prostatic hyperplasia without lower urinary tract symptoms; R26.89 Other abnormalities of gait and mobility; Z66 Do not resuscitate; E11.621 Type 2 diabetes mellitus with foot ulcer; E11.51 Type 2 diabetes mellitus with diabetic peripheral angiopathy without gangrene; E11.622 Type 2 diabetes mellitus with other skin ulcer; L97.529 Non-pressure chronic ulcer of other part of left foot with unspecified severity; Z95.820 Peripheral vascular angioplasty status with implants and grafts; Z95.1 Presence of aortocoronary bypass graft; Z90.49 Acquired absence of other specified parts of digestive tract; Z79.4 Long term (current) use of insulin; Z88.6 Allergy status to analgesic agent; Z79.02 Long term (current) use of antithrombotics/antiplatelets; Z86.74 Personal history of sudden cardiac arrest; D63.1 Anemia in chronic kidney disease; E11.649 Type 2 diabetes mellitus with hypoglycemia without coma

== ENCOUNTER → 2018-08-30 | Outpatient (REF) | payer MEDICARE, OTHER ==
[~2018-08-30] MED LIST changes: +KEPP250T5 PO; -SENN-53 PO; +SENN1TAB40 PO; +ZOFR4TAB16 PO
== END ==
LOC: M LAB REF 16:39
PROVIDERS: ATTEND Physician Assistant
DX: E11.621 Type 2 diabetes mellitus with foot ulcer (principal); L97.519 Non-pressure chronic ulcer of other part of right foot with unspecified severity

== ENCOUNTER 2018-09-05 13:50 | Inpatient (IN) | payer MEDICARE, OTHER ==
[~2018-09-05] VITALS: Ht 172.7 cm; Wt 79.5 kg
[2018-09-05] MEDS: GABAPENTIN 100 MG CAP PO SCH ×2 (09:00→21:00)
[~2018-09-05 13:50] MED LIST changes: +ALBU17IN2 INH; +ALL10TAB28 PO; -ALL10TAB29 PO; -PROV108A INH; -ZOFR4TAB16 PO
[2018-09-05 14:57] LABS: BASO % 0.8 % (0.0-1.0); EOS # 0.2 10^3/uL (0.0-0.50); EOS % 3.4 % (0.0-3.0); HEMATOCRIT 33.7 % (42.0-52.0); HEMOGLOBIN 10.1 g/dl (13.5-17.5); LYMPH # 0.8 10^3/uL (1.5-4.5); LYMPH % 15.8 % (24.0-44.0); MEAN CORPUSCULAR HEMOGLOBIN 30.1 pg (27.0-33.0); MEAN CORPUSCULAR VOLUME 100.3 fl (80.0-96.0); MONO # 0.3 10^3/uL (0.0-0.8); MONO % 6.3 % (0.0-5.0); NEUTROPHILS # 3.7 10^3/uL (1.8-7.7); NEUTROPHILS % 73.3 % (36.0-66.0); PLATELET COUNT, AUTOMATED 131 10^3/uL (150-450); RED BLOOD COUNT 3.36 10^6/uL (4.30-6.10); WHITE BLOOD COUNT 5.1 10^3/uL (4.0-10.0)
[2018-09-05 15:07] LABS: BLOOD UREA NITROGEN 30 MG/DL (7-18); CALCIUM LEVEL 9.5 MG/DL (8.8-10.2); CARBON DIOXIDE LEVEL 33 MEQ/L (21-32); CHLORIDE LEVEL 103 MEQ/L (98-107); CK-MB VALUE MASS < 1.0 NG/ML (<3.6); CPK CREATINE PHOSPHOKINASE 31 U/L (39-308); CREATININE FOR GFR 6.08 MG/DL (0.70-1.30); GLOMERULAR FILTRATION RATE 9.8 (>49); GLUCOSE, FASTING 158 MG/DL (70-100); MB/CK RELATIVE INDEX 3.23 (< OR =4); POTASSIUM SERUM 3.5 MEQ/L (3.5-5.1); SODIUM LEVEL 143 MEQ/L (136-145); TROPONIN I 0.03 NG/ML (< 0.10)
[2018-09-05 15:08] LABS: ABG BASE EXCESS 6.4 (-2.0-2.0); ABG HCO3 30.8 MEQ/L (22.0-26.0); ABG O2 SATURATION 97.4 % (95.0-99.0); ABG PARTIAL PRESSURE CO2 43.9 mmHg (35.0-45.0); ABG PARTIAL PRESSURE O2 99.4 mmHg (75.0-100.0); ABG STANDARD HCO3 30.3 MEQ/L (22.0-26.0); ABG TOTAL CO2 32.2 MEQ/L (23.0-31.0); ABG pH (ARTERIAL) 7.464 UNITS (7.350-7.450)
--- NOTE | 2018-09-05 15:43 | REP ---
Clinical: Altered mental status. Comparison: 08/16/2018. Findings: Cardiomegaly is appreciated along with findings to suggest pulmonary vascular congestion and interstitial edema including cephalization, bibasilar infiltrates and suspected layering effusions (left greater than right). No pneumothorax. Skeletal structures stable. Impression: Cardiomegaly with findings to suggest CHF/pulmonary edema. Electronically Signed by Wes Martin MD 09/05/2018 03:34 P
[2018-09-05] MEDS ORDERED: CARVedilol 12.5 MG TAB PO ONE (16:00)
[2018-09-05] MEDS ORDERED: KEPP250T5 PO (16:07)
--- NOTE | 2018-09-05 19:59 | ECGEPIP ---
[facility] - ED Test Date: 2018-09-05 Pat Name: RENATA SALES Department: Room: - Gender: Male Lean Leader: stacey : 1950 Requested By: Guerrero Guerrero Order Number: [id number] Reading MD: Suzanne Treviño Measurements Intervals [place] Rate: 77 P: 53 GA: 215 QRS: 36 QRSD: 90 T: 85 QT: 381 QTc: 434 Interpretive Statements SINUS RHYTHM WITH FIRST DEGREE AV BLOCK NSTTW abnormalities SEPTAL MYOCARDIAL INFARCTION, PROBABLY OLD SIMILAR 08/13/18 Electronically Signed on 09-05-2018 19:58:55 EDT by Suzanne Treviño
--- NOTE | 2018-09-05 20:33 | HPEPDOC ---
[facility] Medical History & Physical Date of Admission Sep 05, 2018 Date of Service: Sep 05, 2018 Primary Care Physician: JERAD ARTHUR MD @ Attending Physician: SUZAN GONZÁLES MD History and Physical CHIEF COMPLAINT: loss of consciousness HISTORY OF PRESENT ILLNESS: Mr. Azevedo is a 68-year-old male who was sent from his dialysis center after having an episode of loss of consciousness, 30 minutes into his dialysis session which lasted 2 minutes. The patient does not remember anything about the episode, and denies prodromal symptoms. According to his , who is here at the bedside dialysis staff told her that the patient had an episode of asystole and when they started infusing IV fluids, he became responsive again. Per discussion with the ED attending, it is possible that the patient had a syncopal seizure as the patient has a history of seizures, his antiepileptic medications were recently discontinued, and he doesn't remember much about the episode. REVIEW OF SYSTEMS: 12 point review of systems negative except as listed in HPI PAST MEDICAL , SURGICAL HISTORY: 1. ESRD on dialysis via left AV fistula Monday. 2. 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 History of 2 CVAs. 4. Chronic CAD with history of single vessel CABG 5. Status post appendectomy. 6. Status post laparoscopic cholecystectomy. 7. History of peritoneal dialysis catheter placement with subsequent removal 8. Status post bilateral cataract removal. 9. History of thoracentesis. 10. History of nephrolithiasis. 11. History of left lower extremity angioplasty to treat nonhealing wounds along with history of right lower extremity angiogram. 12. History of left fifth toe amputation and wound debridement SOCIAL HISTORY: Does not smoke. He drinks alcohol socially. Resides with his FAMILY HISTORY: Colon cancer affecting mother Diabetes affecting brother. Chronic CAD affecting brother Lung cancer affecting brother and father Penile cancer affecting brother ALLERGIES: Please see below. HOME MEDICATIONS: Please see below. PHYSICAL EXAMINATION: VITAL SIGNS: Temperature 97.2, pulse 75, respiratory rate 18, blood pressure 184/95, pulse oximetry 96% on room air GENERAL APPEARANCE:, Slim built, well-developed, not in apparent distress. HEENT:. Normocephalic, atraumatic, mucous members are moist and pink. CARDIOVASCULAR: Heart has regular rate and rhythm, there are no murmurs, rubs or gallops LUNGS: Lungs are clear to auscultation bilaterally on room air ABDOMEN:. Abdomen is soft, nontender, bowel sounds are hypoactive. EXTREMITIES: Extremities are warm and well perfused, there is an AV fistula at the left upper extremity covered and Band-Aids, the thrill is palpable NEUROLOGICAL: Cranial nerves II-12 are grossly intact. Speech is not dysarthric PSYCHIATRIC: Patient is alert and oriented to person, place and time, able to understand and follow commands LABORATORY DATA: See below. IMAGING: Chest x-ray shows "Cardiomegaly with findings to suggest CHF/pulmonary edema." MICROBIOLOGY: Please see below. ASSESSMENT: Mr. Azevedo, 68-year-old male with a past medical history of ESRD, type 2 diabetes, history of CVAs, chronic CAD with history of CABG, and multiple surgeries who is admitted for evaluation after having a syncopal episode. 1.Syncope Differential includes dialysis disequilibrium syndrome vs syncopal seizure vs pseudoseizure vs vasovagal event Less likely cardiac arrest as a serum CK, MB, and troponins were within normal limits . An EKG showed normal sinus rhythm with first-degree AV block The patient's antiepileptics were discontinued recently. Per discussion with neurologist lead front end developer, in it's unlikely that the patient had a seizure as his dose of Keppra was very small. The serum glucose, troponin and calcium are within normal normal limits Plan: admit to the PCU, monitor on telemetry, follow-up orthostats, follow-up CT of the head, per discussion with Dr. Mauro we can order an EEG and reconsult their service if necessary, after the EEG we will consider resuming the Keppra 2.ESRD on dialysis via left AV fistula Monday Plan consult nephrology for dialysis and resume calcitriol & sevelamer 3. 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 Last A1c was 5.9 in November 2010 Plan: Follow-up Accu-Cheks, follow-up A1c, sliding scale insulin 4. History of 2 CVAs/ Chronic CAD with history of single vessel CABG Plan resume clopidogrel and rosuvastatin 5. Chronic hypertension. Plan resume amlodipine and Coreg. DVT prophylaxis with heparin. Disposition pending clinical course Vital Signs Vital Signs Date Time Temp Pulse Resp B/P (MAP) Pulse Ox O2 Delivery O2 Flow Rate FiO2 7/31/19 19:15 77 179/84 (115) 99 09/05/18 14:20 97.2 18 09/05/18 13:57 Nasal Cannula 2.0 Laboratory Data Labs 24H Laboratory Tests 2 09/05/18 14:45: Immature Granulocyte % (Auto) 0.4, White Blood Count 5.1, Red Blood Count 3.36L, Hemoglobin 10.1L, Hematocrit 33.7L, Mean Corpuscular Volume 100.3H, Mean Corpuscular Hemoglobin 30.1, Mean Corpuscular Hemoglobin Concent 30.0L, Red Cell Distribution Width 15.9H, Platelet Count 131L, Neutrophils (%) (Auto) 73.3H, Lymphocytes (%) (Auto) 15.8L, Monocytes (%) (Auto) 6.3H, Eosinophils (%) (Auto) 3.4H, Basophils (%) (Auto) 0.8, Neutrophils # (Auto) 3.7, Lymphocytes # (Auto) 0.8L, Monocytes # (Auto) 0.3, Eosinophils # (Auto) 0.2, Basophils # (Auto) 0.0, Nucleated Red Blood Cells % (auto) 0.0, Anion Gap 7L, Glomerular Filtration Rate 9.8L, Blood Urea Nitrogen 30H, Creatinine 6.08H, Sodium Level 143, Potassium Level 3.5, Chloride Level 103, Carbon Dioxide Level 33H, Calcium Level 9.5, Total Creatine Kinase 31L, Creatine Kinase MB < 1.0, Creatine Kinase MB Relative Index 3.23, Troponin I 0.03 09/05/18 14:57: Blood Gas Bicarbonate Standard 30.3H, Arterial Blood pH 7.464H, Arterial Blood Partial Pressure CO2 43.9, Arterial Blood Partial Pressure O2 99.4, Arterial Blood Total CO2 32.2H, Arterial Blood HCO3 30.8H, Arterial Blood Base Excess 6.4H, Arterial Blood Oxygen Saturation 97.4 CBC/BMP Laboratory Tests 09/05/18 14:45 Red Blood Count 3.36 L, Mean Corpuscular Volume 100.3 H, Mean Corpuscular Hemoglobin 30.1, Mean Corpuscular Hemoglobin Concent 30.0 L, Red Cell Distribution Width 15.9 H, Neutrophils (%) (Auto) 73.3 H, Lymphocytes (%) (Auto) 15.8 L, Monocytes (%) (Auto) 6.3 H, Eosinophils (%) (Auto) 3.4 H, Basophils (%) (Auto) 0.8, Neutrophils # (Auto) 3.7, Lymphocytes # (Auto) 0.8 L, Monocytes # (Auto) 0.3, Eosinophils # (Auto) 0.2, Basophils # (Auto) 0.0, Calcium Level 9.5, Total Creatine Kinase 31 L Home Medications Scheduled Amlodipine Besylate (Amlodipine Besylate) 2.5 Mg Tablet, 2.5 MG PO QHS Calcitriol (Calcitriol) 0.25 Mcg Cap, 0.25 MCG PO 3XW RECEIVES AT DIALYSIS ON MON, MON, MON Calcium Carbonate (Tums Ultra) 1,000 Mg Chw, 1,000 MG PO WM Carvedilol (Carvedilol) 12.5 Mg Tablet, 12.5 MG PO BID Cetirizine HCl (Cetirizine HCl) 10 Mg Tablet, 10 MG PO DAILY Clopidogrel Bisulfate (Clopidogrel) 75 Mg Tab, 75 MG PO DAILY Ergocalciferol (Vitamin D2) (Vitamin D2) 50,000 Unit Cap, 50,000 UNIT PO 1XWK TAKES ON WEDNESDAYS Fluticasone Propion/Salmeterol (Advair Hfa 230-21 Mcg Inhaler) 12 Gm Hfa.aer.ad, 2 PUFF INH BID Folic Acid/Vit B Complex and C (Radha-Haja Tablet) 1 Tab Tab, 1 TAB PO DAILY Gabapentin (Neurontin) 100 Mg Capsule, 100 MG PO BID Insulin Human NPH (Humulin N) 100 Unit/1 Ml Vial, 1 DOSE SC DAILY SLIDING SCALE; REPORTED USUALLY BETWEEN 2 AND 4 UNITS Levetiracetam (Keppra) 250 Mg Tablet, 250 MG PO BID RESTARTED - PT FAMILY MEMEBER JUST PICKED MED UP TODAY. HAS BEEN 10 DAYS SINCE LAST DOSE Pantoprazole Sodium (Protonix) 40 Mg Tab, 40 MG PO DAILY Rosuvastatin Calcium (Rosuvastatin Calcium) 10 Mg Tablet, 10 MG PO QHS Sevelamer Carbonate (Renvela) 800 Mg Tab, 1,600 MG PO WM Scheduled PRN Acetaminophen (Acetaminophen) 500 Mg Tablet, 1,000 MG PO QID PRN for PAIN Albuterol Sulfate (Proair Hfa) 8.5 Gm Hfa.aer.ad, 2 PUFF INH Q4H PRN for SOB/WHEEZING Allergies Coded Allergies: aspirin (Verified Allergy, Severe, CLOSES AIRWAY, 06/15/18) A-FIB/CHADSVASC A-FIB History Current/History of A-Fib/PAF?: No Current PO Anticoag Therapy: No Treatment Other reason anticoagulant not: N/A SUZAN GONZÁLES MD Sep 05, 2018 20:32
[2018-09-05] MEDS: ROSUVASTATIN 10 MG TAB (CRESTOR) PO SCH (21:00)
[2018-09-05] MEDS ORDERED: DEXTROSE 50% 50 ML SYRINGE IV PRN (21:45)
[2018-09-05] MEDS ORDERED: ACETAMINOPHEN 500 MG TAB PO PRN (21:45)
[2018-09-05] MEDS ORDERED: ALBUTEROL 90 MCG/ACT 8GM HFA INHALER INH PRN (21:45)
[2018-09-05] MEDS: HEPARIN SOD (PORCINE) 5000 UNITS/ML VIAL SC SCH (22:01)
[2018-09-05 22:39] LABS: HEMOGLOBIN A1c 5.5 %
[2018-09-05 22:54] VITALS: BP 168/78
[2018-09-05 23:59] VITALS: BP 180/84
[2018-09-06] VITALS: BP 168/86
[2018-09-06 04:00] VITALS: BP 165/80
[2018-09-06 05:10] LABS: HEMOGLOBIN 9.6 g/dl (13.5-17.5); MEAN CORPUSCULAR HEMOGLOBIN 30.5 pg (27.0-33.0); MEAN CORPUSCULAR VOLUME 101.6 fl (80.0-96.0); PLATELET COUNT, AUTOMATED 144 10^3/uL (150-450); RED BLOOD COUNT 3.15 10^6/uL (4.30-6.10); WHITE BLOOD COUNT 5.3 10^3/uL (4.0-10.0)
[2018-09-06 05:28] LABS: CALCIUM LEVEL 9.2 MG/DL (8.8-10.2); CREATININE FOR GFR 7.31 MG/DL (0.70-1.30); GLOMERULAR FILTRATION RATE 7.9 (>49); POTASSIUM SERUM 3.4 MEQ/L (3.5-5.1)
[2018-09-06] MEDS: HEPARIN SOD (PORCINE) 5000 UNITS/ML VIAL SC SCH ×3 (06:51→21:00)
[2018-09-06] MEDS: HumaLOG INSULIN (NovoLOG) PER UNIT SC SCH ×3 (07:30→17:37)
[2018-09-06] MEDS: ADVAIR HFA 230/21MCG INHALER INH SCH ×2 (07:38→20:07)
[2018-09-06 08:00] VITALS: BP 194/102
[2018-09-06] MEDS ORDERED: PNEUMOCOCCAL VACCINE 0.5ML SYRINGE(90732) PNEUMOVAX 23 IM ONE (09:00)
[2018-09-06] MEDS: CETIRIZINE (ZyrTEC) 10 MG TAB PO SCH (09:07)
[2018-09-06] MEDS: PANTOPRAZOLE 40MG TAB (PROTONIX) PO SCH (09:08)
[2018-09-06] MEDS: CARVedilol 12.5 MG TAB PO SCH ×2 (09:08→20:53)
[2018-09-06] MEDS: GABAPENTIN 100 MG CAP PO SCH ×2 (09:08→20:52)
[2018-09-06] MEDS: CLOPIDOGREL 75 MG TAB PO SCH (09:08)
--- NOTE | 2018-09-06 10:03 | REP ---
CT BRAIN WITHOUT CONTRAST: HISTORY: Syncope. Comparison brain MRI study is from August 13, 2018. CT study is from August 13, 2018 and MRI study from July 28, 2018 are also reviewed. FINDINGS: Preliminary digital animal husbandry technician radiograph is unremarkable. There is vascular calcification in the carotid siphons bilaterally. No bony calvarial defect is seen. The distal vertebral artery vascular calcification is also noted. There is moderate diffuse cerebral atrophy. There are old lacunar infarcts in the basal ganglia again noted bilaterally. There is an old area of cortical encephalomalacia in the left temporal lobe unchanged from prior MRI and CT studies consistent with a small old left temporal lobe cortical infarct. There is no evidence of intracranial hemorrhage. No new infarction is appreciated. Periventricular low density changes are seen consistent with small vessel ischemic changes. These are chronic as well. No mass or midline shift is seen. IMPRESSION: Bilateral old lacunar basal ganglia infarcts. Old small left temporal lobe cortical infarct. Diffuse atrophy and vascular calcification. No acute intracranial finding. Electronically Signed by Mani Medina MD 09/06/2018 10:15 A
[2018-09-06] MEDS ORDERED: HEPARIN 1,000 UNITS/ML 10ML VIAL (FOR RADIOLOGY& DIALYSIS ONLY) IV ONE (11:00)
--- NOTE | 2018-09-06 13:28 | CR ---
DATE OF CONSULTATION: 09/06/2018 REASON FOR CONSULTATION: To assist in the management of end-stage renal disease. HISTORY OF PRESENT ILLNESS: Mr. Dykes is a 68-year-old gentleman with multiple chronic medical problems including hypertension, diabetes, end-stage renal disease, peripheral vascular disease, prior strokes, seizure disorder, coronary artery disease, and congestive heart failure. He came to dialysis unit on 09/05/2018 for his regular treatment. Within 20 minutes of starting dialysis he passed out while his blood pressure was in 150s. His blood sugar was checked and that was also about 150. Patient did recover after he was given some sternal rub and intravenous (IV) fluids. He was sent to emergency room and got admitted with syncope. His dialysis treatment was terminated after about 20 minutes of starting dialysis. He has recent history of cardiac arrest following angioplasty on his leg and had a prolonged episode of altered mentation following that. He was resuscitated and has been doing well and went home after rehab. A nephrology consultation was requested as the patient is in need for dialysis. PAST MEDICAL AND SURGICAL HISTORY: 1. Longstanding history of type 2 diabetes. 2. Hypertension. 3. End-stage renal disease requiring maintenance hemodialysis. 4. History of prior strokes at least two. 5. History of coronary artery disease, status post coronary artery bypass graft (CABG). 6. History of congestive heart failure. 7. History of anemia. 8. History of recent cardiac arrest. 9. History of peripheral vascular disease. 10. There is history of gastrointestinal (GI) bleed in the past. 11. History of secondary hyperparathyroidism. Past surgical history is significant for CABG, cholecystectomy, appendectomy, peritoneal dialysis catheter placement and removal, arteriovenous (AV) fistula creation, bilateral cataract surgery, history of thoracentesis and PleurX catheter placement, history of nephrolithiasis, history of multiple angioplasties on lower extremities and history of 5th toe amputation on the left and wound debridement. PERSONAL AND SOCIAL HISTORY: Patient is and lives with his . He does not smoke or drink. FAMILY HISTORY: Significant for colon cancer in his mother and coronary artery disease and diabetes in his brothers. His father had lung cancer. ALLERGIES: Patient has allergy to ACETAMINOPHEN and ALBUTEROL. MEDICATIONS: His home medications include: - amlodipine 2.5 mg daily - calcitriol 0.25 mcg three times a week with dialysis - calcium carbonate 1000 mg with meals - Carvedilol 12.5 mg twice a day - Plavix 75 mg daily - vitamin D 50,000 units once a week - Advair Diskus 230/30 mcg 2 puffs twice a day - folic acid with multivitamin 1 tablet daily - gabapentin 100 mg twice a day - Humulin insulin per sliding scale - Keppra 250 mg twice a day - Protonix 40 mg daily - Crestor 10 mg daily - Renvela 800 mg 2 tablets with meals REVIEW OF SYSTEMS: Patient denies any fever or chills. He felt as usual when he came for dialysis yesterday. There was no seizure activity noted. He is mildly hard of hearing. His speech is slightly slurred due to prior strokes. This is at baseline. Head is atraumatic. Nose and throat are unremarkable. Heart exam reveals regular S1, S2. Lungs clear to auscultation. Abdomen soft and nontender, and bowel sounds are normal. Extremities have no cyanosis or clubbing. His left arm AV fistula is patent. Neurologically, he is awake and alert at present and seems to be at about his baseline mentation. LAB DATA: His WBC count is 5.3, hemoglobin 9.6 and hematocrit 32.0. Platelets 144. Sodium is 141 today, potassium 3.4, CO2 of 31, BUN 32 and creatinine 7.31. Glucose 95 and calcium 9.2. Hemoglobin A1c was 5.5 yesterday. PROBLEMS: 1. End-stage renal disease. Patient had only about 20 minutes of dialysis yesterday and he will be dialyzed today. His volume status is slightly decompensated. 2. Congestive heart failure. Patient has history of congestive heart failure and volume overload. His volume is at present, slightly decompensated. We will try to remove about 3 liters of fluid with dialysis today and see how he tolerates. 3. Hypertension. Blood pressure was somewhat high this morning and he did receive his regular dose of medications. We hope that his blood pressure will improve after his volume status is corrected and fluid is removed. 4. Anemia. He has anemia of chronic kidney disease. We will continue to monitor closely and treat him with Aranesp if needed. 5. Syncope. He does have history of seizures and stroke in the past. He also has history of arrhythmias. Yesterday no problem was observed. His blood pressure was well maintained and he was not hypoglycemic. It remains to be seen if he has any recurrence of syncope or any cardiac arrhythmias noted on the telemetry. Thank you for involving me in the care of Mr. Dykes. I will follow him along with you.
[2018-09-06 15:00] VITALS: BP 150/77
--- NOTE | 2018-09-06 19:51 | IPNPDOC ---
Subjective Date Seen The patient was seen on 09/06/18. Subjective Chief Complaint/HPI 68m with hx of esrd on hd, dm, cva, cad with cabg admitted with an unresponsive episode during dialysis. Concerns raised about a possible seizure since he has been off his keppra for 10 days no complaints at this time. Hypertensive earlier in the day resolved with home meds and dialysis. full ROS performed and negative with exception of what is documented above Objective Physical Examination General Exam: Positive: Alert, No Acute Distress Eye Exam: Positive: PERRLA, Conjunctiva & lids normal, EOMI; Negative: Sclera icteric ENT Exam: Positive: Atraumatic, Mucous membr. moist/pink, Pharynx Normal Neck Exam: Positive: Supple; Negative: JVD, thyromegaly Chest Exam: Positive: Clear to auscultation, Normal air movement Heart Exam: Positive: Rate Normal, Regular Rhythm, Normal S1, Normal S2; Negative: Murmurs, Rubs Abdomen Exam: Positive: Normal bowel sounds, Soft; Negative: Tenderness, Hepatospenomegaly Extremity Exam: Positive: Normal pulses; Negative: Clubbing, Cyanosis, Edema Skin Exam: Positive: Nl turgor and temperature; Negative: Rash, Breakdown Neuro Exam: Positive: Normal Gait, Normal Speech, Cranial Nerves 3-12 NL, Reflexes 2+ Psych Exam: Positive: Mental status NL, Mood NL, Oriented x 3 Assessment /Plan Assessment 68m p/w syncope vs seizure plan is to repeat eeg tomorrow while pt is off keppra otherwise no obvious acute disease noted hypertensive episode likely due to missing HD yesterday and now resolved ESRD continue hd htn continue home meds dm continue diabetic diet continue sliding scale continue neurontin Plan/VTE VTE Prophylaxis Ordered?: Yes VS, I&O, 24H, [facility] Vital Signs/I&O Vital Signs Date Time Temp Pulse Resp B/P (MAP) Pulse Ox O2 Delivery O2 Flow Rate FiO2 09/06/18 09:08 80 194/102 09/06/18 08:00 97.9 17 92 09/05/18 22:15 Room Air 09/05/18 13:57 2.0 Laboratory Data 24H LABS Laboratory Tests 2 09/05/18 22:07: Estimated Mean Plasma Glucose 111H, Hemoglobin A1c 5.5 09/06/18 04:24: Nucleated Red Blood Cells % (auto) 0.0, Anion Gap 8, Glomerular Filtration Rate 7.9L, Blood Urea Nitrogen 32H, Creatinine 7.31H, Sodium Level 141, Potassium Level 3.4L, Chloride Level 102, Carbon Dioxide Level 31, Calcium Level 9.2 09/06/18 17:24: Bedside Glucose (Misc Panel) 192H CBC/BMP Laboratory Tests 09/06/18 04:24 Red Blood Count 3.15 L, Mean Corpuscular Volume 101.6 H, Mean Corpuscular Hemoglobin 30.5, Mean Corpuscular Hemoglobin Concent 30.0 L, Red Cell Distribution Width 15.9 H, Calcium Level 9.2 AUDREY PATTERSON MD Sep 06, 2018 19:51
[2018-09-06 20:00] VITALS: BP_SYST 108; BP_SYST 155; BP_DIAS 68; BP_DIAS 70
[2018-09-06] MEDS: ROSUVASTATIN 10 MG TAB (CRESTOR) PO SCH (20:52)
[2018-09-06 23:59] VITALS: BP 157/76
[2018-09-07 04:00] VITALS: BP 166/7
[2018-09-07] MEDS: HEPARIN SOD (PORCINE) 5000 UNITS/ML VIAL SC SCH ×2 (06:48→14:11)
[2018-09-07] MEDS: ADVAIR HFA 230/21MCG INHALER INH SCH (07:25)
[2018-09-07 08:00] VITALS: BP 183/78
[2018-09-07] MEDS: GABAPENTIN 100 MG CAP PO SCH (08:30)
[2018-09-07] MEDS: CLOPIDOGREL 75 MG TAB PO SCH (08:30)
[2018-09-07] MEDS: CETIRIZINE (ZyrTEC) 10 MG TAB PO SCH (08:30)
[2018-09-07 08:31] VITALS: BP 180/78
[2018-09-07] MEDS: HumaLOG INSULIN (NovoLOG) PER UNIT SC SCH ×2 (08:31→12:00)
[2018-09-07] MEDS: CARVedilol 12.5 MG TAB PO SCH (08:31)
[2018-09-07] MEDS: PANTOPRAZOLE 40MG TAB (PROTONIX) PO SCH (08:31)
[2018-09-07 09:00] VITALS: BP 146/70
[2018-09-07] MEDS ORDERED: CALCITRIOL 0.25 MCG CAP (S0169) PO SCH (09:00)
[2018-09-07 13:05] VITALS: BP 118/70
[2018-09-07 16:08] VITALS: BP 90/56
--- NOTE | 2018-09-07 22:00 | IPN ---
DATE: 09/07/2018 Mr. Dykes is seen this morning on his bedside. He is waiting to go for electroencephalogram (EEG). His is present in the room. Patient has been feeling well since his dialysis. He denies any dyspnea, chest pain, nausea, or vomiting. He did not have any episodes of seizures or syncope since admission. PHYSICAL EXAMINATION: Temperature 97.0 degrees Fahrenheit, heart rate 75 per minute, respiratory rate 20 per minute, blood pressure 118/70 mm of mercury and oxygen saturation 100% on room air. Head is atraumatic. Neck is supple and without jugular venous distention (JVD) or thyroid enlargement. His heart sounds are regular, and lungs sound clear to auscultation. Abdomen soft and nontender. Bowel sounds are normal. Extremities without any cyanosis or clubbing. Neurologically, he is awake and at his baseline mentation. Patient did not have any new labs today. Yesterday his BUN was 32 and creatinine 7.31 before dialysis. His potassium level was 3.4. PROBLEMS: 1. End-stage renal disease. Patient was dialyzed yesterday, as he missed his dialysis on Monday. I have discussed with his , and he can be dialyzed tomorrow as an outpatient if he gets discharged today. There is no emergent need for dialysis today. 2. Hypokalemia. His potassium level was low and probably this is nutritional. The patient was dialyzed with 4.0 m.eq potassium bath. Patient has been feeling well, and his hypokalemia is likely to be corrected as he has been eating well. 3. Anemia. His anemia is stable, and it will be monitored and managed with dialysis in outpatient clinic. 4. Syncope. The patient has been asymptomatic since admission without any further episode. He is going to have an EEG done today. DISPOSITION: From a renal standpoint, the patient can be discharged to home today and will followup in outpatient clinic. JOSE
--- NOTE | 2018-09-08 08:40 | EEG ---
DATE OF PROCEDURE: HISTORY: The patient is 68-year-old man who had an episode of lost consciousness for 2 minutes during hemodialysis. The patient had an episode of asystole and when they were infusing IV fluid, he became responsive again. This EEG was done to rule out epileptic potential. He is currently taking carvedilol, Plavix, Protonix, amlodipine, Crestor, gabapentin, etc.. TECHNICAL DESCRIPTION: This digital EEG was recorded by 21 scalp, ear and two EKG electrodes and was reviewed in bipolar and referential montages following reformatting in 10-20 international electrode placement system. INTERPRETATION: The patient was noted to be in awake and drowsy states during this EEG. Resting awake background rhythm consisted of 7 - 8 Hertz theta activity measuring 15 - 40 microvolts in amplitude which was symmetric to eye opening. Attenuation of posterior dominant rhythm was seen during transition into drowsiness. No sleep was achieved. Hyperventilation could not be performed. Photic stimulation remained unremarkable. EKG revealed normal sinus rhythm. No focal, lateralizing or epileptiform abnormalities were seen. No clinical or electrographic seizures were recorded. CONCLUSIONS: This EEG in awake and drowsy state is mildly abnormal due to presence of mild slowing consistent with mild nonspecific diffuse cerebral dysfunction such as seen in minimal - mild encephalopathy due to multiple potential causes. Significant internal improvement is noted compared to the patient's prior EEGs. Severity of encephalopathy has significantly improved. No epileptiform abnormalities were seen. Clinical correlation is recommended.
--- NOTE | 2018-09-11 20:30 | DS.PDOC ---
Discharge Summary General Date of Admission Sep 06, 2018 at 19:42 Date of Discharge 8.. Discharge Summary PROCEDURES PERFORMED DURING STAY: [None]. ADMITTING DIAGNOSES: 1. syncopal seizure DISCHARGE DIAGNOSES: 1. syncope vs seizure COMPLICATIONS/CHIEF COMPLAINT: Syncopal Seizure. HISTORY OF PRESENT ILLNESS: Mr. Azevedo is a 68-year-old male who was sent from his dialysis center after having an episode of loss of consciousness, 30 minutes into his dialysis session which lasted 2 minutes. The patient does not remember anything about the episode, and denies prodromal symptoms. According to his , who is here at the bedside dialysis staff told her that the patient had an episode of asystole and when they started infusing IV fluids, he became responsive again. Per discussion with the ED attending, it is possible that the patient had a syncopal seizure as the patient has a history of seizures, his antiepileptic medications were recently discontinued, and he doesn't remember much about the episode. HOSPITAL COURSE: 68m with hx of esrd on hd, dm, cva, cad with cabg admitted with an unresponsive episode during dialysis. Concerns raised about a possible seizure since he has been off his keppra for 10 days. He was admitted to the hospitalist service. At the recommendation of his neurologist an EEG was performed while he was off his keppra. It showed no evidence of epileptiform activity. DISCHARGE MEDICATIONS: Please see below. ALLERGIES: Please see below. PHYSICAL EXAMINATION ON DISCHARGE: VITAL SIGNS: Please see below. General Exam: Positive: Alert, No Acute Distress Eye Exam: Positive: PERRLA, Conjunctiva & lids normal, EOMI; Negative: Sclera icteric ENT Exam: Positive: Atraumatic, Mucous membr. moist/pink, Pharynx Normal Neck Exam: Positive: Supple; Negative: JVD, thyromegaly Chest Exam: Positive: Clear to auscultation, Normal air movement Heart Exam: Positive: Rate Normal, Regular Rhythm, Normal S1, Normal S2; Negative: Murmurs, Rubs Abdomen Exam: Positive: Normal bowel sounds, Soft; Negative: Tenderness, Hepatospenomegaly Extremity Exam: Positive: Normal pulses; Negative: Clubbing, Cyanosis, Edema Skin Exam: Positive: Nl turgor and temperature; Negative: Rash, Breakdown Neuro Exam: Positive: Normal Gait, Normal Speech, Cranial Nerves 3-12 NL, Reflexes 2+ Psych Exam: Positive: Mental status NL, Mood NL, Oriented x 3 LABORATORY DATA: Please see below. ACTIVITY: [As tolerated]. DIET: renal DISPOSITION: Home Health Service. . DISCHARGE CONDITION: [Stable]. Vital Signs/I&Os Vital Signs Date Time Temp Pulse Resp B/P (MAP) Pulse Ox O2 Delivery O2 Flow Rate FiO2 09/07/18 16:08 90/56 (67) 09/07/18 13:05 97.0 75 20 100 09/05/18 22:15 Room Air 09/05/18 13:57 2.0 Discharge Medications Scheduled Amlodipine Besylate (Amlodipine Besylate) 2.5 Mg Tablet, 2.5 MG PO QHS, (Reported) Calcitriol (Calcitriol) 0.25 Mcg Cap, 0.25 MCG PO 3XW, (Reported) RECEIVES AT DIALYSIS ON MON, MON, MON Calcium Carbonate (Tums Ultra) 1,000 Mg Chw, 1,000 MG PO WM, (Reported) Carvedilol (Carvedilol) 12.5 Mg Tablet, 12.5 MG PO BID, (Reported) Cetirizine HCl (Cetirizine HCl) 10 Mg Tablet, 10 MG PO DAILY, (Reported) Clopidogrel Bisulfate (Clopidogrel) 75 Mg Tab, 75 MG PO DAILY, (Reported) Ergocalciferol (Vitamin D2) (Vitamin D2) 50,000 Unit Cap, 50,000 UNIT PO 1XWK, (Reported) TAKES ON WEDNESDAYS Fluticasone Propion/Salmeterol (Advair Hfa 230-21 Mcg Inhaler) 12 Gm Hfa.aer.ad, 2 PUFF INH BID, (Reported) Folic Acid/Vit B Complex and C (Radha-Haja Tablet) 1 Tab Tab, 1 TAB PO DAILY, (Reported) Gabapentin (Neurontin) 100 Mg Capsule, 100 MG PO BID, (Reported) Insulin Human NPH (Humulin N) 100 Unit/1 Ml Vial, 1 DOSE SC DAILY, (Reported) SLIDING SCALE; REPORTED USUALLY BETWEEN 2 AND 4 UNITS Levetiracetam (Keppra) 250 Mg Tablet, 250 MG PO BID, (Reported) RESTARTED - PT FAMILY MEMEBER JUST PICKED MED UP TODAY. HAS BEEN 10 DAYS SINCE LAST DOSE Pantoprazole Sodium (Protonix) 40 Mg Tab, 40 MG PO DAILY, (Reported) Rosuvastatin Calcium (Rosuvastatin Calcium) 10 Mg Tablet, 10 MG PO QHS, (Reported) Sevelamer Carbonate (Renvela) 800 Mg Tab, 1,600 MG PO WM, (Reported) Scheduled PRN Acetaminophen (Acetaminophen) 500 Mg Tablet, 1,000 MG PO QID PRN for PAIN, (Reported) Albuterol Sulfate (Proair Hfa) 8.5 Gm Hfa.aer.ad, 2 PUFF INH Q4H PRN for SOB/WHEEZING, (Reported) Allergies Coded Allergies: aspirin (Verified Allergy, Severe, CLOSES AIRWAY, 06/15/18) AUDREY PATTERSON MD Sep 11, 2018 20:30
== END 2018-09-07 17:04 | disposition home health service (06) | DRG 100 ==
LOC: M ED 13:50 → EDBD 13:50 → M ED INP 13:51 → M PCU 22:35 → OBSVTOIN 09-06 19:42
PROVIDERS: ADMIT Internal Medicine; ATTEND Hospitalist
DX: G40.909 Epilepsy, unspecified, not intractable, without status epilepticus (principal); N18.6 End stage renal disease; I13.2 Hypertensive heart and chronic kidney disease with heart failure and with stage 5 chronic kidney disease, or end stage renal disease; N25.81 Secondary hyperparathyroidism of renal origin; E11.22 Type 2 diabetes mellitus with diabetic chronic kidney disease; I25.10 Atherosclerotic heart disease of native coronary artery without angina pectoris; E11.319 Type 2 diabetes mellitus with unspecified diabetic retinopathy without macular edema; I50.9 Heart failure, unspecified; R55 Syncope and collapse; E11.51 Type 2 diabetes mellitus with diabetic peripheral angiopathy without gangrene; E87.6 Hypokalemia; Z98.41 Cataract extraction status, right eye; Z98.42 Cataract extraction status, left eye; Z95.1 Presence of aortocoronary bypass graft; Z87.442 Personal history of urinary calculi; Z90.49 Acquired absence of other specified parts of digestive tract; Z89.422 Acquired absence of other left toe(s); Z99.2 Dependence on renal dialysis; Z86.73 Personal history of transient ischemic attack (TIA), and cerebral infarction without residual deficits; Z79.4 Long term (current) use of insulin; Z79.899 Other long term (current) drug therapy; Z88.6 Allergy status to analgesic agent; Z86.74 Personal history of sudden cardiac arrest; Z79.02 Long term (current) use of antithrombotics/antiplatelets

== ENCOUNTER 2018-09-19 14:04 | Emergency (ER) | payer MEDICARE, OTHER ==
[~2018-09-19] VITALS: Ht 172.7 cm; Wt 76.0 kg
[~2018-09-19 14:04] MED LIST changes: -ALBU17IN2 INH; -ALL10TAB28 PO; +ALL10TAB29 PO; +PROV108A INH
[2018-09-19 15:16] LABS: BASO % 0.5 % (0.0-1.0); EOS # 0.2 10^3/uL (0.0-0.50); HEMATOCRIT 37.4 % (42.0-52.0); HEMOGLOBIN 11.5 g/dl (13.5-17.5); LYMPH # 0.7 10^3/uL (1.5-4.5); LYMPH % 9.6 % (24.0-44.0); MEAN CORPUSCULAR HEMOGLOBIN 30.9 pg (27.0-33.0); MEAN CORPUSCULAR HGB CONC 30.7 g/dl (32.0-36.5); MEAN CORPUSCULAR VOLUME 100.5 fl (80.0-96.0); MONO # 0.4 10^3/uL (0.0-0.8); MONO % 5.8 % (0.0-5.0); NEUTROPHILS # 6.1 10^3/uL (1.8-7.7); NEUTROPHILS % 81.6 % (36.0-66.0); PLATELET COUNT, AUTOMATED 119 10^3/uL (150-450); RED BLOOD COUNT 3.72 10^6/uL (4.30-6.10); WHITE BLOOD COUNT 7.4 10^3/uL (4.0-10.0)
[2018-09-19 15:27] LABS: INR 1.36; PROTHROMBIN TIME 16.5 SECONDS (11.8-14.0)
[2018-09-19] MEDS ORDERED: ZOFR4TAB16 PO (15:42)
[2018-09-19 16:01] LABS: BLOOD UREA NITROGEN 25 MG/DL (7-18); CALCIUM LEVEL 9.1 MG/DL (8.8-10.2); CARBON DIOXIDE LEVEL 31 MEQ/L (21-32); CHLORIDE LEVEL 97 MEQ/L (98-107); CK-MB VALUE MASS < 1.0 NG/ML (<3.6); CPK CREATINE PHOSPHOKINASE 170 U/L (39-308); CREATININE FOR GFR 6.95 MG/DL (0.70-1.30); GLOMERULAR FILTRATION RATE 8.4 (>49); GLUCOSE, FASTING 161 MG/DL (70-100); MAGNESIUM LEVEL 2.6 MG/DL (1.8-2.4); MB/CK RELATIVE INDEX 0.59 (< OR =4); POTASSIUM SERUM 5.8 MEQ/L (3.5-5.1); SODIUM LEVEL 137 MEQ/L (136-145); TROPONIN I 0.02 NG/ML (< 0.10)
[2018-09-19 17:15] VITALS: BP 159/77
--- NOTE | 2018-09-19 18:06 | ECGEPIP ---
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
== END 2018-09-19 17:14 | disposition home or self-care (01) ==
LOC: M ED 14:04 → EDBD 14:04 → M ED 17:14
DX: R55 Syncope and collapse (principal); E11.22 Type 2 diabetes mellitus with diabetic chronic kidney disease; I13.11 Hypertensive heart and chronic kidney disease without heart failure, with stage 5 chronic kidney disease, or end stage renal disease; N18.6 End stage renal disease; Z86.73 Personal history of transient ischemic attack (TIA), and cerebral infarction without residual deficits; Z95.1 Presence of aortocoronary bypass graft; Z88.6 Allergy status to analgesic agent; Z99.2 Dependence on renal dialysis; Z79.899 Other long term (current) drug therapy; Z79.02 Long term (current) use of antithrombotics/antiplatelets; Z79.4 Long term (current) use of insulin

== ENCOUNTER → 2018-10-11 | Outpatient (REF) | payer MEDICARE, OTHER ==
[~2018-10-11] MED LIST changes: +ZOFR4TAB16 PO
== END ==
LOC: M SFHCPLAZ 14:39
PROVIDERS: ATTEND Surgery
DX: E11.621 Type 2 diabetes mellitus with foot ulcer (principal); I96 Gangrene, not elsewhere classified
CPT/HCPCS: 11042; 11044; 15275; 88304; Q4186

== ENCOUNTER → 2018-10-16 | Outpatient (CLI) | payer MEDICARE, OTHER ==
--- NOTE | 2018-10-16 16:07 | REP ---
BILATERAL LOWER EXTREMITY DUPLEX DOPPLER ARTERIAL ULTRASOUND: Real-time ultrasound evaluation and duplex Doppler interrogation of the bilateral lower extremity arterial systems is performed. MELISSA right is 0.64. It could not be calculated on the left due to AV fistula. Scattered plaquing is seen diffusely bilaterally in the lower extremity arterial systems with diffusely biphasic and triphasic wave forms except for monophasic wave forms in the distal anterior and posterior tibial arteries as well as left tuboperitoneal trunk. The proximal left posterior tibial artery could not be visualized, underlying significant stenosis at that location could not be excluded. There is slow flow in the distal right posterior tibial artery suggesting a more proximal stenosis. RIGHT 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 LEFT 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 Common femoral artery 101 cm/s 87 cm/s Profunda 47.9 cm/s 70.6 cm/s Proximal SFA 41.4 cm/s 52.9 cm/s Mid SFA 45.3 cm/s 37.8 cm/s Distal SFA 41.7 cm/s 43.8 cm/s Popliteal 40.6 cm/s 37.8 cm/s Proximal ZULEIMA 46.6 cm/s 47.6 cm/s Tibioperoneal trunk 34 cm/s 22.2 cm/s Proximal SHOT PEEN OPERATOR 20.6 cm/s NOT SEEN Distal SHOT PEEN OPERATOR 2.3 cm/s 27 cm/s Distal ZULEIMA 10.2 cm/s 9.2 cm/s IMPRESSION: Scattered plaquing and narrowing bilaterally. Monophasic wave forms distal anterior and posterior tibial arteries with slow flow in the distal right SHOT PEEN OPERATOR. Proximal left SHOT PEEN OPERATOR not seen. The findings may indicate bilateral stenosis of the anterior and posterior tibial arteries. Electronically Signed by Ramesh Sanchez MD 10/17/2018 04:55 P
== END ==
LOC: M RAD 11:43
PROVIDERS: ATTEND Physician Assistant
DX: I70.213 Atherosclerosis of native arteries of extremities with intermittent claudication, bilateral legs (principal)

== ENCOUNTER → 2018-12-25 | Outpatient (REF) | payer MEDICARE, OTHER ==
[~2018-12-25] MED LIST changes: +SENN-53 PO; -SENN1TAB40 PO
== END ==
LOC: M LAB REF 13:22
PROVIDERS: ATTEND Podiatrist Foot & Ankle Surgery
DX: I96 Gangrene, not elsewhere classified (principal)

== ENCOUNTER 2019-01-06 13:21 | Inpatient (IN) | payer MEDICARE, OTHER ==
[~2019-01-06] VITALS: Ht 172.7 cm; Wt 72.1 kg
[2019-01-06] MEDS ORDERED: NS 1,000 ML IV SCH (13:45)
[2019-01-06] MEDS ORDERED: VITA1CAP25 PO (13:52)
[2019-01-06] MEDS ORDERED: RENATAB6 PO (13:52)
[2019-01-06] MEDS ORDERED: CRES10TA PO (13:52)
--- NOTE | 2019-01-06 14:14 | REP ---
Clinical: Systemic inflammatory response syndrome. Technique: AP, lateral, bilateral oblique views of the right foot. Findings: Evidence of prior amputation at the first MTP joint level. Underlying osteopenia and degenerative changes along with peripheral vascular disease noted. No periosteal reaction. No acute fracture or dislocation. No subcutaneous emphysema or foreign body. Impression: Chronic changes. Electronically Signed by Wes Martin MD 01/06/2019 02:06 P
--- NOTE | 2019-01-06 14:16 | REP ---
Clinical: Systemic inflammatory response syndrome. Comparison: 09/05/2018. Findings: Acute on chronic opacity in the left base. Mediastinum and cardiac silhouette are stable. Evidence of prior sternotomy. Linear scarring versus plate-like atelectasis in the right mid lung zone. No pneumothorax. Skeletal structures intact. Impression: Acute and/or chronic pleuroparenchymal changes at the left base. Electronically Signed by Wes Martin MD 01/06/2019 02:07 P
[2019-01-06] MEDS ORDERED: VANCOMYCIN HCL 1,000 MG, VIAL MATE ADAPTER 1 EACH in D5W 250 ML IV ONE ×2 (14:45→21:00)
[2019-01-06 15:10] LABS: ALBUMIN 2.9 GM/DL (3.2-5.2); ALT/SGPT 23 U/L (12-78); BILIRUBIN,DIRECT < 0.1 MG/DL (0.0-0.2); BILIRUBIN,TOTAL 0.5 MG/DL (0.2-1.0); BLOOD UREA NITROGEN 41 MG/DL (7-18); CALCIUM LEVEL 9.4 MG/DL (8.8-10.2); CARBON DIOXIDE LEVEL 29 MEQ/L (21-32); CHLORIDE LEVEL 99 MEQ/L (98-107); CREATININE FOR GFR 7.07 MG/DL (0.70-1.30); GLOMERULAR FILTRATION RATE 8.3 (>49); GLUCOSE, FASTING 158 MG/DL (70-100); POTASSIUM SERUM 5.8 MEQ/L (3.5-5.1); SODIUM LEVEL 136 MEQ/L (136-145); TOTAL PROTEIN 7.4 GM/DL (6.4-8.2)
[2019-01-06 15:16] LABS: BASO # 0.1 10^3/uL (0.0-0.2); BASO % 0.7 % (0.0-1.0); EOS # 0.3 10^3/uL (0.0-0.5); HEMATOCRIT 32.1 % (42.0-52.0); HEMOGLOBIN 9.7 g/dl (13.5-17.5); LYMPH # 0.9 10^3/uL (1.5-5.0); LYMPH % 10.6 % (24.0-44.0); MEAN CORPUSCULAR HEMOGLOBIN 29.1 pg (27.0-33.0); MEAN CORPUSCULAR HGB CONC 30.2 g/dl (32.0-36.5); MEAN CORPUSCULAR VOLUME 96.4 fl (80.0-96.0); MONO # 0.6 10^3/uL (0.0-0.8); MONO % 6.8 % (0.0-5.0); NEUTROPHILS # 6.6 10^3/uL (1.5-8.5); NEUTROPHILS % 78.3 % (36.0-66.0); PLATELET COUNT, AUTOMATED 247 10^3/uL (150-450); RED BLOOD COUNT 3.33 10^6/uL (4.30-6.10); WHITE BLOOD COUNT 8.4 10^3/uL (4.0-10.0)
[2019-01-06] MEDS ORDERED: DEXTROSE 50% 50 ML SYRINGE IV PRN (16:00)
[2019-01-06] MEDS ORDERED: GLUCOSE 4 GM CHEW TABLET PO PRN (16:00)
[2019-01-06] MEDS ORDERED: GLUCAGON FOR INJ 1 MG VIAL (J1610) SC PRN (16:00)
[2019-01-06 16:23] LABS: C REACTIVE PROTEIN QUANTITATIV 9.51 MG/DL (0.00-0.30)
[2019-01-06 16:32] LABS: ERYTHROCYTE SEDIMENTATION RATE 85 mm/hr (0-20)
[2019-01-06 16:45] VITALS: BP 161/76
[2019-01-06] MEDS ORDERED: ALBUTEROL 90 MCG/ACT 8GM HFA INHALER INH PRN (18:00)
[2019-01-06] MEDS: CALCIUM CARBONATE 500 MG CHEW U/D PO SCH (18:22)
[2019-01-06] MEDS: (RENVELA) SEVELAMER **CARBONate** 800 MG TAB PO SCH (18:22)
[2019-01-06] MEDS: HumaLOG INSULIN (NovoLOG) PER UNIT SC SCH ×2 (18:22→21:00)
[2019-01-06] MEDS: MEROPENEM INJ 500 MG in IV 1 EA IV SCH (18:23)
--- NOTE | 2019-01-06 18:23 | HPEPDOC ---
[facility] Medical History & Physical Date of Admission Jan 06, 2019 Date of Service: Jan 06, 2019 Attending Physician: JIMMY GARCIA MD History and Physical CHIEF COMPLAINT: Right foot infection HISTORY OF PRESENT ILLNESS: 68-year-old male with past medical history of end- stage renal disease on hemodialysis Monday, Monday, Monday, coronary artery disease status post CABG and cardiac arrest 2, diabetes mellitus, CVA 2 and hypertension presents from home with right toe infection. Patient has had issues with wounds on his feet for over 6 months, has been following with podiatry and Dr. Blue in the wound clinic. He initially underwent fifth digit" on his left foot in May 2018, subsequently, has been having debridements by Dr. Blue in the wound clinic. He underwent right foot first digit amputation [address] Gagnon. As per , the wound started becoming more painful, red and draining a small amount of fluid about 1 week ago. He presented to the hospital today because the wound is worsening and not healing properly. He is otherwise without any complaints, denies any short of breath, chest pain, nausea, vomiting, abdominal pain, diarrhea or constipation. 10 point review of system is negative except for above PAST MEDICAL HISTORY: 1. Coronary artery disease. 2. Cardiac arrest 2. 3. End-stage renal disease. 4. Diabetes mellitus. 5. Hypertension. 6. Hyperlipidemia 7. CVA PAST SURGICAL HISTORY: 1. CABG. 2. Cholecystectomy. 3. Appendectomy. SOCIAL HISTORY: Never smoker. Denies alcohol use. Denies drug use FAMILY HISTORY: Positive for heart disease and malignancy ALLERGIES: Please see below. HOME MEDICATIONS: Please see below. PHYSICAL EXAMINATION: VITAL SIGNS: Please see below. GENERAL: No distress HEENT: Normocephalic, atraumatic, moist mucous membranes NECK: Supple CARDIOVASCULAR EXAMINATION: S1, S2 RESPIRATORY EXAMINATION: Diminished in the bases, clear, no wheezing ABDOMINAL EXAMINATION: Soft, nontender, nondistended, positive bowel sounds EXTREMITIES: Left foot with multiple toes status post debridement and dressing in place, right foot first digit amputation with dressing in place, tender to palpation with surrounding erythema, no drainage appreciated SKIN: No rash NEUROLOGICAL EXAMINATION: no focal deficits PSYCHIATRIC EXAMINATION: Calm and cooperative LABORATORY DATA: See below. IMAGING: Foot X-ray without bone involvement MICROBIOLOGY: Please see below. ASSESSMENT: Exceed 8-year-old male with past medical history of end-stage renal disease on hemodialysis, coronary artery disease status post CABG, cardiac arrest 2, CVA 2, hypertension, diabetes mellitus and hyperlipidemia presents from home with poor wound healing after toe amputation 2 weeks ago. PLAN: 1. Wound infection. Status post right foot first digit amputation [address] Gagnon, poor wound healing with possible infection, ESR, CRP significantly elevated, x-ray without bone involvement, MRI ordered, broad-spectrum antibiotic coverage with vancomycin and Merrem, podiatry consulted (Dr. Gagnon). 2. Coronary artery disease. Status post CABG and cardiac arrest 2, now DNR/DNI. Stable, continue medical management (Plavix, statin, beta hunter) 3. End-stage renal disease. On hemodialysis Monday, Monday and Monday. Continue home regimen, no need for emergent dialysis, nephrology consulted (Dr. Larose) 4. CVA 2. Continue Plavix and statin 5. Diabetes mellitus. Sliding scale insulin with fingersticks before meals and bedtime 6. Hypertension. Continue home regimen (Norvasc and Coreg) DVT prophylaxis: Heparin subcutaneous GI prophylaxis: Home PPI Vital Signs Vital Signs Date Time Temp Pulse Resp B/P (MAP) Pulse Ox O2 Delivery O2 Flow Rate FiO2 01/06/19 16:45 97.3 77 20 161/76 (104) 97 Room Air Laboratory Data Labs 24H Laboratory Tests 2 01/06/19 13:54: Immature Granulocyte % (Auto) 0.6, Neutrophils (%) (Auto) 78.3H, Lymphocytes (%) (Auto) 10.6L, Monocytes (%) (Auto) 6.8H, Eosinophils (%) (Auto) 3.0, Basophils (%) (Auto) 0.7, Neutrophils # (Auto) 6.6, Lymphocytes # (Auto) 0.9L, Monocytes # (Auto) 0.6, Eosinophils # (Auto) 0.3, Basophils # (Auto) 0.1, Nucleated Red Blood Cells % (auto) 0.0, Erythrocyte Sedimentation Rate 85H 01/06/19 14:19: Anion Gap 8, Glomerular Filtration Rate 8.3L, Lactic Acid Level 1.0, Calcium Level 9.4, Total Bilirubin 0.5, Direct Bilirubin < 0.1, Aspartate Amino Transf (AST/SGOT) 49H, Alanine Aminotransferase (ALT/SGPT) 23, Alkaline Phosphatase 67, C-Reactive Protein, Quantitative 9.51H, Total Protein 7.4, Albumin 2.9L, Albumin/Globulin Ratio 0.64L CBC/BMP Laboratory Tests 01/06/19 13:54 01/06/19 14:19 Microbiology Microbiology 01/06/19 Blood Culture, Received Pending Home Medications Scheduled Amlodipine Besylate (Amlodipine Besylate) 2.5 Mg Tablet, 2.5 MG PO QHS Calcitriol (Calcitriol) 0.25 Mcg Cap, 0.25 MCG PO 3XW RECEIVES AT DIALYSIS ON MON, MON, MON Calcium Carbonate (Tums Ultra) 1,000 Mg Chw, 1,000 MG PO WM Carvedilol (Carvedilol) 12.5 Mg Tablet, 12.5 MG PO BID Cetirizine HCl (Cetirizine HCl) 10 Mg Tablet, 10 MG PO DAILY Cholecalciferol (Vitamin D3) (Vitamin D3) 50,000 Unit Capsule, 50,000 UNITS PO Q7D WEDNESDAYS Clopidogrel Bisulfate (Clopidogrel) 75 Mg Tab, 75 MG PO DAILY Fluticasone Propion/Salmeterol (Advair Hfa 230-21 Mcg Inhaler) 12 Gm Hfa.aer.ad, 2 PUFF INH BID Gabapentin (Neurontin) 100 Mg Capsule, 100 MG PO BID Insulin Human NPH (Humulin N) 100 Unit/1 Ml Vial, 1 DOSE SC DAILY SLIDING SCALE; REPORTED USUALLY BETWEEN 2 AND 4 UNITS Levetiracetam (Keppra) 250 Mg Tablet, 250 MG PO BID Pantoprazole Sodium (Protonix) 40 Mg Tab, 40 MG PO DAILY Rosuvastatin Calcium (Crestor) 10 Mg Tablet, 10 MG PO QHS Sevelamer Carbonate (Renvela) 800 Mg Tab, 1,600 MG PO WM Vit B Comp No.3/Folic/C/Biotin (Radha-Haja Rx Tablet) 1 Each Tablet, 1 TAB PO DAILY Scheduled PRN Acetaminophen (Acetaminophen) 500 Mg Tablet, 1,000 MG PO QID PRN for PAIN Albuterol Sulfate (Proair Hfa) 8.5 Gm Hfa.aer.ad, 2 PUFF INH Q4H PRN for SOB/WHEEZING Allergies Coded Allergies: aspirin (Verified Allergy, Severe, CLOSES AIRWAY, 06/15/18) A-FIB/CHADSVASC A-FIB History Current/History of A-Fib/PAF?: No JIMMY GARCIA MD Jan 06, 2019 18:23
[2019-01-06] MEDS ORDERED: PATIROMER SORBITEX CALCIUM 8.4 GM POWDER PACKET (VELTASSA) PO ONE (20:00)
[2019-01-06] MEDS: ADVAIR HFA 230/21MCG INHALER INH SCH (20:04)
[2019-01-06] MEDS: HEPARIN SOD (PORCINE) 5000 UNITS/ML VIAL SC SCH (21:14)
[2019-01-06] MEDS: GABAPENTIN 100 MG CAP PO SCH (21:14)
[2019-01-06] MEDS: ROSUVASTATIN 10 MG TAB (CRESTOR) PO SCH (21:14)
[2019-01-06] MEDS: CARVedilol 12.5 MG TAB PO SCH (21:14)
[2019-01-06] MEDS: levETIRAcetam 250MG TABLET (KEPPRA) PO SCH (21:15)
[2019-01-06 22:00] VITALS: BP 146/78
[2019-01-07 06:00] VITALS: BP 139/67
[2019-01-07 06:20] LABS: HEMATOCRIT 29.6 % (42.0-52.0); HEMOGLOBIN 9.1 g/dl (13.5-17.5); MEAN CORPUSCULAR HEMOGLOBIN 29.1 pg (27.0-33.0); MEAN CORPUSCULAR HGB CONC 30.7 g/dl (32.0-36.5); MEAN CORPUSCULAR VOLUME 94.6 fl (80.0-96.0); PLATELET COUNT, AUTOMATED 214 10^3/uL (150-450); RED BLOOD COUNT 3.13 10^6/uL (4.30-6.10); WHITE BLOOD COUNT 7.4 10^3/uL (4.0-10.0)
[2019-01-07] MEDS: (RENVELA) SEVELAMER **CARBONate** 800 MG TAB PO SCH ×3 (06:27→18:19)
[2019-01-07] MEDS: GABAPENTIN 100 MG CAP PO SCH ×2 (06:28→23:01)
[2019-01-07] MEDS: CALCIUM CARBONATE 500 MG CHEW U/D PO SCH ×3 (06:28→18:19)
[2019-01-07] MEDS: HEPARIN SOD (PORCINE) 5000 UNITS/ML VIAL SC SCH ×2 (06:28→23:01)
[2019-01-07] MEDS: levETIRAcetam 250MG TABLET (KEPPRA) PO SCH ×2 (06:28→23:01)
[2019-01-07] MEDS: CARVedilol 12.5 MG TAB PO SCH ×2 (06:29→23:02)
[2019-01-07 06:47] LABS: ALBUMIN 2.6 GM/DL (3.2-5.2); BILIRUBIN,TOTAL 0.4 MG/DL (0.2-1.0); CALCIUM LEVEL 8.9 MG/DL (8.8-10.2); CREATININE FOR GFR 7.67 MG/DL (0.70-1.30); GLOMERULAR FILTRATION RATE 7.5 (>49); POTASSIUM SERUM 4.3 MEQ/L (3.5-5.1); TOTAL PROTEIN 7.3 GM/DL (6.4-8.2); VANCOMYCIN RANDOM 27.9 UG/ML
[2019-01-07] MEDS: ACETAMINOPHEN 500 MG TAB PO PRN (06:47)
[2019-01-07] MEDS: ADVAIR HFA 230/21MCG INHALER INH SCH ×2 (07:22→19:54)
[2019-01-07] MEDS: PANTOPRAZOLE 40MG TAB (PROTONIX) PO SCH (08:21)
[2019-01-07] MEDS: CALCITRIOL 0.25 MCG CAP (S0169) PO SCH (08:21)
[2019-01-07] MEDS: CLOPIDOGREL 75 MG TAB PO SCH (08:21)
[2019-01-07] MEDS: CETIRIZINE (ZyrTEC) 10 MG TAB PO SCH (08:21)
[2019-01-07] MEDS: HumaLOG INSULIN (NovoLOG) PER UNIT SC SCH ×4 (08:22→21:00)
[2019-01-07] MEDS ORDERED: DARBEPOETIN 100 MCG/0.5 ML *DIALYSIS* SYRINGE (J0882) IV SCH (12:00)
--- NOTE | 2019-01-07 12:34 | CR ---
DATE OF CONSULTATION: 01/07/2019 REASON FOR CONSULTATION: Right foot infection. Ayaan Dykes is a patient well known to [facility] who was admitted to the hospital yesterday due to worsening foot infection. He had an amputation of his right hallux due to gangrene in my office approximately 10 days ago. He has had one followup appiontment with Dr. Blue after this. He says there was initially some bleeding for one day after the appointment, which then stopped. Over the last week, there has been some increasing redness. The patient has had worsening weakness and inability to stand. He was brought to the hospital for further workup. He states that the redness has somewhat improved since admission yesterday. PAST MEDICAL HISTORY: Includes coronary artery disease, cardiac arrest, end stage renal disease on dialysis, diabetes, hypertension, hyperlipidemia, CVA, and peripheral vascular disease. PAST SURGICAL HISTORY: Coronary artery bypass graft (CABG), cholecystectomy, appendectomy, right hallux amputation, and left fifth toe amputation. SOCIAL HISTORY: Denies smoking. FAMILY HISTORY: Noncontributory. ALLERGIES: ASPIRIN. VITALS: Are examined. T-max is 99. LABS: Reviewed. White blood cell count is 7.4, ESR is 85, CRP is 9.51. Blood cultures are pending. FOOT X-RAY: Shows no gas or soft tissue emphysema. Right hallux amputation at first metatarsal phalangeal joint is noted with some irregularity at the metatarsal head which is consistent with the debridement performed by myself with bari in the office. LOWER EXTREMITY EXAMINATION: Right foot pedal pulses are nonpalpable. There is full eschar at the amputation site of the hallux. There is no purulence noted underneath. There is some erythema surrounding this. 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 PLAN: At this time, eschar is stable. Will not removed until fully demarcated. I discussed with vascular PA. Presently, there is no vascular coverage for this week. I do not feel that this is urgent enough to warrant transfer. Vascular PA is going to review the records and decide if any arterial studies should be ordered. He should ultimately have followup with Dr. Marcos to discuss if any further vascular options are available. Once outpatient, he should continue followup with Dr. Blue. Will continue to follow. Continue current antibiotics presently. He can weight bear as tolerated with therapy. MTDD
--- NOTE | 2019-01-07 12:45 | CR ---
DATE OF CONSULTATION: 01/07/2019 REQUESTING PHYSICIAN: Dr. Lesa Robledo CONSULTING PHYSICIAN: Dr. Larose REASON FOR CONSULTATION: Management of end-stage renal disease on hemodialysis. CHIEF COMPLAINT: Right foot infection. HISTORY OF PRESENT ILLNESS: Ayaan Dykes is well known to me. He is a 68-year-old male with a past medical history of end-stage renal disease on hemodialysis on Monday, Monday, and Monday, coronary artery disease, status post coronary artery bypass graft (CABG), history of cardiac arrest, insulin dependent diabetes mellitus, hypertension, history of CVA, and other comorbid conditions mentioned below. The patient presented to the emergency room (ER) with complaint of poor wound healing and concern of infection in the right foot site of 1st digit amputation (which was done approximately 10 days ago by podiatry). His states prior to the amputation, he was walking in the home with the walker; however, since then he has not really been ambulatory and has been having increasing pain and drainage at the surgical site. He otherwise denies chills, fever, nausea, vomiting, diarrhea. Denies any missed dialysis treatments. Constitutional: Denies fevers and chills. Eyes: Denies tearing or blurry vision. Ears, nose, and throat (ENT): Denies a rhinorrhea or dysphasia. Cardiac: Has a history of coronary artery bypass and a history of cardiac arrest. Denies chest pain, palpitations. Respiratory: Denies cough or hemoptysis. Gastrointestinal: Denies nausea, vomiting, diarrhea. Endocrine: He reports history of secondary hyperparathyroidism and insulin dependent diabetes. Hematologic: He denies easy bleeding or bruising. Skin: He reports a foot wound. Denies any other rashes or pruritus. Neurologic: He denies syncope or headache. Chronic expressive aphasia. Remainder review of systems is negative or as per history of present illness (HPI). PAST MEDICAL HISTORY: End-stage renal disease on hemodialysis Monday, Monday, Monday. Coronary artery disease. History of cardiac arrest. Insulin dependent diabetes mellitus. Hypertension. Dyslipidemia. CVA. Secondary hyperparathyroidism of renal origin. Anemia of chronic kidney disease. History of congestive heart failure. History of peripheral vascular disease. History of gastrointestinal (GI) bleed in the past. PAST SURGICAL HISTORY: CABG. Cholecystectomy. Appendectomy. Peritoneal dialysis catheter placement and removal. Arteriovenous (AV) fistula creation. Bilateral cataract surgery. History of thoracentesis and PleurX catheter placement. History of nephrolithiasis. History of multiple angioplasties on lower extremities. History of toe amputations on the feet and wound debridement. PERSONAL AND SOCIAL HISTORY: He is . Lives with his . He does not smoke or drink. FAMILY HISTORY: Significant for colon cancer in his mother and coronary artery disease and diabetes in his brother. His father had lung cancer. ALLERGIES: ASPIRIN. HOME MEDICATIONS: - amlodipine 2.5 mg daily - calcitriol 0.25 mcg three times a week with dialysis - calcium carbonate 1 gram with meals - Carvedilol 12.5 mg by mouth twice a day - Plavix 75 mg daily - vitamin D 50,000 units once a week - Advair two puffs twice daily - folic acid with multivitamin one tablet daily - gabapentin 100 mg twice a day - human insulin per sliding scale - Keppra 250 mg twice a day - Protonix 40 mg by mouth daily - Crestor 10 mg by mouth daily - Renvela 800 mg tow tablets three times daily with meals PHYSICAL EXAM: Vital signs: Temperature 99.0, pulse 83, respiratory rate 16, blood pressure 139/67, saturating 91-99% on room air. General: The patient is seen in the hemodialysis unit receiving his treatment. is present at the bedside. He is awake, alert, oriented times three, in no apparent distress. Extraocular muscles are intact. Tongue is moist. Neck is supple. Jugular veins were not elevated. Cardiac: S1, S2. Regular rate and rhythm. No edema in the peripheries. Palpable peripheral pulses. Respiratory: Lungs were clear to auscultation bilaterally. No crackle, rale, or wheeze. Abdomen is soft and nontender. There are bowel sounds. The left upper extremity AV fistula is patent and presently in use. Musculoskeletal: No leg swelling, clubbing, or cyanosis. Extremities: Left foot with dressing and right foot 1st digit amputation with dressing in place as well. Neurologic: He has a chronic mild expressive aphasia. Psychiatric: Calm and cooperative. LABS: White count 7.4, hemoglobin 9.1, platelet 214. Sodium 135, potassium 4.3. Blood cultures are pending. Chest x-ray, 01/06/2019: Pleuroparenchymal changes of left base. INPATIENT MEDICATIONS: - meropenem 500 mg intravenous (IV) daily - vancomycin 1 gram IV once - Tylenol as needed - albuterol as needed - amlodipine 2.5 mg by mouth nightly - calcitriol 0.25 mcg by mouth Monday, Monday, Monday - Tums 1 gram by mouth with meal - Carvedilol 12.5 mg by mouth twice a day - Plavix 75 mg by mouth daily - gabapentin 100 mg by mouth twice a day - heparin 5000 units subcu every 12 hourly - insulin - Keppra 250 mg by mouth twice a day - Protonix 40 mg by mouth daily - Crestor 10 mg by mouth nightly - Advair two puff inhaled twice a day - Renvela 1600 mg by mouth with meals PROBLEMS: 1. End-stage renal disease on hemodialysis on Monday, Monday, Monday schedule. The patient is dialyzed today per his maintenance schedule. His electrolytes and volume status are acceptable. He received some gentle IV fluid in the emergency room last night. His potassium normalized predialysis this morning. The order for Veltassa was discontinued. His fistula is in good use. I am making no changes to his current dialysis prescription. 2. Hypertension. Blood pressures are acceptable on his home regimen of amlodipine and Carvedilol, and no changes are being made. Systolic is in the 130s-140s predialysis. 3. Chronic wound infection at the site of right foot 1st digit amputation. ESR and CRP as noted. He is afebrile and without leukocytosis. He has already been started on broad-spectrum antibiotics by the primary team, and he is pending further followup with podiatry and wound care. 4. Anemia, related to chronic kidney disease, inflammatory state and iron deficiency. He will receive Aranesp with dialysis. 5. Secondary hyperparathyroidism of renal origin. He continues on his usual home regimen including calcitriol, Tums, and sevelamer. Thank you for involving me in the care of Mr. Dykes. I will be happy to follow him along with you.
[2019-01-07 14:00] VITALS: BP 146/67
[2019-01-07] MEDS: **VANCO AFTER HD** MISC XX SCH (14:34)
[2019-01-07] MEDS ORDERED: VANCOMYCIN HCL 1,000 MG, VIAL MATE ADAPTER 1 EACH in D5W 250 ML IV SCH (16:30)
[2019-01-07] MEDS: MEROPENEM INJ 500 MG in IV 1 EA IV SCH (18:21)
--- NOTE | 2019-01-07 20:01 | IPNPDOC ---
Date Seen The patient was seen on 01/07/19. Progress Note HISTORY OF PRESENT ILLNESS: 68-year-old male with past medical history of end- stage renal disease on hemodialysis Monday, Monday, Monday, coronary artery disease status post CABG and cardiac arrest 2, diabetes mellitus, CVA 2 and hypertension presents from home with right toe infection. Patient has had issues with wounds on his feet for over 6 months, has been following with podiatry and Dr. Blue in the wound clinic. He initially underwent fifth digit" on his left foot in May 2018, subsequently, has been having debridements by Dr. Blue in the wound clinic. He underwent right foot first digit amputation [address] Gagnon. As per , the wound started becoming more painful, red and draining a small amount of fluid about 1 week ago. He presented to the hospital today because the wound is worsening and not healing properly. He is otherwise without any complaints, denies any short of breath, chest pain, nausea, vomiting, abdominal pain, diarrhea or constipation. 01/07/2019 Patient seen while receiving hemodialysis, reports slight improvement in right foot pain, no other complaints. 10 point review of system is negative except for above PHYSICAL EXAMINATION: VITAL SIGNS: Please see below. GENERAL: No distress HEENT: Normocephalic, atraumatic, moist mucous membranes NECK: Supple CARDIOVASCULAR EXAMINATION: S1, S2 RESPIRATORY EXAMINATION: Diminished in the bases, clear, no wheezing ABDOMINAL EXAMINATION: Soft, nontender, nondistended, positive bowel sounds EXTREMITIES: Left foot with multiple toes status post debridement and dressing in place, right foot first digit amputation with dressing in place, tender to palpation with surrounding erythema, no drainage appreciated SKIN: No rash NEUROLOGICAL EXAMINATION: no focal deficits PSYCHIATRIC EXAMINATION: Calm and cooperative LABORATORY DATA: See below. IMAGING: Foot X-ray without bone involvement MICROBIOLOGY: Please see below. ASSESSMENT: Exceed 8-year-old male with past medical history of end-stage renal disease on hemodialysis, coronary artery disease status post CABG, cardiac arre st 2, CVA 2, hypertension, diabetes mellitus and hyperlipidemia presents from home with poor wound healing after toe amputation 2 weeks ago. PLAN: 1. Wound infection. Status post right foot first digit amputation [address] Gagnon, ESR, CRP significantly elevated, x-ray without bone involvement, MRI pending, continue with vancomycin and Merrem, podiatry consult appreciated, no plan for surgical intervention at this time. Awaiting vascular surgery recommendations regarding need for angiography/angioplasty. 2. Coronary artery disease. Status post CABG and cardiac arrest 2, now DNR/DNI. Stable, continue medical management (Plavix, statin, beta hunter) 3. End-stage renal disease. On hemodialysis Monday, Monday and Monday. Further hemodialysis as per nephrology, continue home regimen 4. CVA 2. Continue Plavix and statin 5. Diabetes mellitus. Sliding scale insulin with fingersticks before meals and bedtime 6. Hypertension. Continue home regimen (Norvasc and Coreg) DVT prophylaxis: Heparin subcutaneous GI prophylaxis: Home PPI VS, I&O, 24H, Fishbone Vital Signs/I&O Vital Signs Date Time Temp Pulse Resp B/P (MAP) Pulse Ox O2 Delivery O2 Flow Rate FiO2 01/07/19 14:00 96.4 89 16 146/67 (93) 96 Room Air I&O- Last 24 Hours up to 6 AM 01/07/19 06:00 Intake Total 990 ml Output Total 0 ml Balance 990 ml Laboratory Data 24H LABS Laboratory Tests 2 01/06/19 20:42: Bedside Glucose (Misc Panel) 98 01/07/19 06:04: Nucleated Red Blood Cells % (auto) 0.0, Anion Gap 8, Glomerular Filtration Rate 7.5L, Calcium Level 8.9, Magnesium Level 2.0, Total Bilirubin 0.4, Aspartate Amino Transf (AST/SGOT) 9, Alanine Aminotransferase (ALT/SGPT) 14, Alkaline Phosphatase 67, Total Protein 7.3, Albumin 2.6L, Albumin/Globulin Ratio 0.55L, Random Vancomycin Level 27.9 01/07/19 13:51: Bedside Glucose (Misc Panel) 104 01/07/19 16:57: Bedside Glucose (Misc Panel) 120H CBC/BMP Laboratory Tests 01/07/19 06:04 Microbiology Microbiology 01/06/19 Blood Culture - Preliminary, Resulted No growth after 24 hours . All specim... JIMMY GARCIA MD Jan 07, 2019 20:01
[2019-01-07 22:00] VITALS: BP 153/77
--- NOTE | 2019-01-07 22:46 | REPVR ---
PROCEDURE INFORMATION: Exam: MR Right Lower Extremity Other Than Joint Without Contrast; Foot Exam date and time: 01/07/2019 5:53 PM Age: 68 years old Clinical history: Edema; Location not specified; Prior surgery; Surgery date: <1 month; Surgery type: Toe amputated 2 weeks ago; Additional info: R/O osteo TECHNIQUE: Imaging protocol: MR of the Right lower extremity without contrast. Exam focused on the foot. COMPARISON: CR Foot, complete 01/06/2019 1:55 PM FINDINGS: LIGAMENTS: Lisfranc ligament: No evidence of tear. TENDONS: Flexor tendons: Fluid surrounds the flexor digitorum tendons, consistent with tenosynovitis or extension of soft tissue swelling. Peroneal tendon: There is tendinosis of the peroneus longus tendon. Extensor tendons: Unremarkable as visualized. Bones/joints: Edema is identified within the bone marrow of the 5th metatarsal head. This is concerning for osteomyelitis in the appropriate clinical setting. Neuropathic changes, reactive edema, and post-traumatic edema are within the differential. Minimal edema also visualized within the 3rd and 4th metatarsal heads. There is amputation of the great toe. Mild cystic change is identified within the bone marrow adjacent to the 2nd MTP joint, likely secondary to arthropathy. Motion artifact limits this study. Soft tissues: Soft tissue swelling of the foot visualized, most significant plantar to the 1st metatarsal head. Evaluation for abscess is limited by the absence of intravenous contrast. Muscles: The patchy muscle edema, most significant at the plantar aspect of the foot. This is suggestive of myositis or diabetic myopathy. A small amount of intramuscular fluid or fasciitis is identified at the plantar aspect of the foot. Fluid: Tibiotalar and subtalar joint effusions visualized. A small effusion is identified between the lateral and intermediate cuneiform bones. Sinus tarsi: Mild edema and fluid within the sinus tarsi. Plantar fascia: Intact, as visualized. IMPRESSION: 1. Edema is identified within the bone marrow of the 5th metatarsal head. This is concerning for osteomyelitis in the appropriate clinical setting. Neuropathic changes, reactive edema, and post-traumatic edema are within the differential. Minimal edema also visualized within the 3rd and 4th metatarsal heads. 2. The patchy muscle edema, most significant at the plantar aspect of the foot. This is suggestive of myositis or diabetic myopathy. A small amount of intramuscular fluid or fasciitis is identified at the plantar aspect of the foot. 3. Soft tissue swelling of the foot visualized, most significant plantar to the 1st metatarsal head. Postcontrast sequences can exclude abscess. 4. There is amputation of the great toe. 5. Mild cystic change is identified within the bone marrow adjacent to the 2nd MTP joint, likely secondary to arthropathy. 6. There is tendinosis of the peroneus longus tendon. 7. Small effusions noted above. 8. Additional findings described above. Electronically signed by: Clay Knowles On 01/07/2019 22:46:02 PM
[2019-01-07] MEDS: ROSUVASTATIN 10 MG TAB (CRESTOR) PO SCH (23:01)
[2019-01-08 06:00] VITALS: BP 144/75
[2019-01-08] MEDS: ADVAIR HFA 230/21MCG INHALER INH SCH ×2 (07:38→20:54)
[2019-01-08] MEDS: CLOPIDOGREL 75 MG TAB PO SCH (09:08)
[2019-01-08] MEDS: CALCIUM CARBONATE 500 MG CHEW U/D PO SCH ×4 (09:08→18:15)
[2019-01-08] MEDS: (RENVELA) SEVELAMER **CARBONate** 800 MG TAB PO SCH ×4 (09:08→18:15)
[2019-01-08] MEDS: GABAPENTIN 100 MG CAP PO SCH ×2 (09:08→21:44)
[2019-01-08] MEDS: CETIRIZINE (ZyrTEC) 10 MG TAB PO SCH (09:08)
[2019-01-08] MEDS: levETIRAcetam 250MG TABLET (KEPPRA) PO SCH ×2 (09:08→21:44)
[2019-01-08] MEDS: PANTOPRAZOLE 40MG TAB (PROTONIX) PO SCH (09:08)
[2019-01-08] MEDS: HEPARIN SOD (PORCINE) 5000 UNITS/ML VIAL SC SCH ×2 (09:09→21:44)
[2019-01-08] MEDS: HumaLOG INSULIN (NovoLOG) PER UNIT SC SCH ×4 (09:09→21:00)
[2019-01-08] MEDS: CARVedilol 12.5 MG TAB PO SCH ×2 (09:11→21:45)
[2019-01-08 09:59] LABS: CALCIUM LEVEL 9.7 MG/DL (8.8-10.2); CREATININE FOR GFR 5.09 MG/DL (0.70-1.30); GLOMERULAR FILTRATION RATE 12.1 (>49); POTASSIUM SERUM 3.7 MEQ/L (3.5-5.1)
--- NOTE | 2019-01-08 12:45 | IPN ---
DATE: 01/08/2019 SUBJECTIVE: Patient is a 68-year-old male who presented to the hospital with pain and complications secondary to a 1st digit amputation on his right foot. Patient also has a history of end-stage renal disease on hemodialysis. Patient says he is feeling well today and says dialysis went well for him yesterday. Patient does not have any acute complaints. Today, patient says his foot is feeling better and says that his lens edge grinder machine was waiting for the results of his right foot MRI in order to plan the rest of his management. Patient was wondering what the results of his MRI were. Patient denies any nausea or vomiting and was eating breakfast when I walked in and says that it was going well. PHYSICAL EXAMINATION: Vital signs: Temperature 98.1, pulse 87, respiratory rate 18, blood pressure 147/70, pulse oximetry 96% on room air. General: Patient is an awake, alert, and oriented male patient who is lying in bed. Patient did not appear to be in any acute distress. HEENT: Normocephalic, atraumatic with anicteric sclerae. Patient did have moist mucous membranes. Neck was supple. Jugular venous distention was not appreciated. Cardiac: Regular rate and rhythm with a normal S1 and S2. Respiratory: Lungs were clear to auscultation bilaterally. Abdomen was soft and nontender. Extremities: There was no pretibial edema present. Patient has a left upper extremity arteriovenous (AV) fistula, which is patent, and it was used yesterday for dialysis. LABORATORY: White blood cells 7.4, hemoglobin 9.1, hematocrit 29.6, platelet 214. ESR 85. Sodium 136, potassium 3.7, chloride 101, carbon dioxide 28, BUN 27, creatinine 5.09, glucose 131, calcium 9.7, C-reactive protein 9.51. Random vancomycin trough 19.0. INPATIENT MEDICATIONS: - Aranesp 100 mcg with dialysis - calcitriol 0.25 mcg Monday, Monday, Monday - cetirizine 10 mg daily - clopidogrel 75 mg daily - pantoprazole 40 mg daily - heparin 5000 units every 12 hours subcutaneously - sliding scale insulin - amlodipine 2.5 mg at night - carvedilol 12.5 mg twice a day - Advair two puffs twice a day - gabapentin 100 mg twice a day - Keppra 250 mg twice a day - rosuvastatin 10 mg at night - meropenem 500 mg intravenous every 24 hours - as needed Tylenol 1000 mg - as needed albuterol two puffs every 4 - as needed calcium carbonate 1000 mg with meals - Renvela 1600 mg with meals ASSESSMENT AND PLAN: 1. End-stage renal disease on hemodialysis on Monday, Monday, Monday schedule. Patient is dialyzed yesterday and is doing well today. Patient's electrolytes are within normal limits today. Patient has an arteriovenous (AV) fistula in the left upper extremity which is being used for dialysis. Patient will be dialyzed again tomorrow. 2. Hypertension. Blood pressures are in the acceptable range on his home amlodipine and Carvedilol will be continued. 3. Chronic wound infection at the site of the right 1st digit amputation. ESR and C-reactive protein (CRP) are both elevated. Patient's primary team will be monitoring this. Patient is already on broad-spectrum antibiotics including vancomycin after hemodialysis. Patient's current random vancomycin level was within target range for his infection. We will continue to monitor. 4. Anemia, related to chronic kidney disease, inflammatory state, and iron deficiency. Patient receives Aranesp with dialysis. 5. Secondary hyperparathyroidism of renal origin. He will continue with his usual home medications of calcitriol, Tums, and sevelamer. DISPOSITION: Patient will continue with hemodialysis on his Monday, Monday, Monday schedule, and we will continue to follow along patient during his hospitalization.
[2019-01-08 14:00] VITALS: BP 136/66
[2019-01-08] MEDS: **VANCO AFTER HD** MISC XX SCH (16:00)
[2019-01-08] MEDS: MEROPENEM INJ 500 MG in IV 1 EA IV SCH ×2 (18:15→19:40)
--- NOTE | 2019-01-08 18:25 | IPNPDOC ---
Date Seen The patient was seen on 01/08/19. Progress Note HISTORY OF PRESENT ILLNESS: 68-year-old male with past medical history of end- stage renal disease on hemodialysis Monday, Monday, Monday, coronary artery disease status post CABG and cardiac arrest 2, diabetes mellitus, CVA 2 and hypertension presents from home with right toe infection. Patient has had issues with wounds on his feet for over 6 months, has been following with podiatry and Dr. Blue in the wound clinic. He initially underwent fifth digit" on his left foot in May 2018, subsequently, has been having debridements by Dr. Blue in the wound clinic. He underwent right foot first digit amputation [address] Gagnon. As per , the wound started becoming more painful, red and draining a small amount of fluid about 1 week ago. He presented to the hospital today because the wound is worsening and not healing properly. He is otherwise without any complaints, denies any short of breath, chest pain, nausea, vomiting, abdominal pain, diarrhea or constipation. 01/07/2019 Patient seen while receiving hemodialysis, reports slight improvement in right foot pain, no other complaints. 01/08/2019 Patient without complaints, working with physical therapy, reports improvement in foot pain. 10 point review of system is negative except for above PHYSICAL EXAMINATION: VITAL SIGNS: Please see below. GENERAL: No distress HEENT: Normocephalic, atraumatic, moist mucous membranes NECK: Supple CARDIOVASCULAR EXAMINATION: S1, S2 RESPIRATORY EXAMINATION: Diminished in the bases, clear, no wheezing ABDOMINAL EXAMINATION: Soft, nontender, nondistended, positive bowel sounds EXTREMITIES: Left foot with multiple toes status post debridement and dressing in place, right foot first digit amputation with dressing in place, tender to palpation with surrounding erythema, no drainage appreciated SKIN: No rash NEUROLOGICAL EXAMINATION: no focal deficits PSYCHIATRIC EXAMINATION: Calm and cooperative LABORATORY DATA: See below. IMAGING: Foot X-ray without bone involvement MICROBIOLOGY: Please see below. ASSESSMENT: Exceed 8-year-old male with past medical history of end-stage renal disease on hemodialysis, coronary artery disease status post CABG, cardiac arrest 2, CVA 2, hypertension, diabetes mellitus and hyperlipidemia presents from home with poor wound healing after toe amputation 2 weeks ago. PLAN: 1. Wound infection. Status post right foot first digit amputation [address] Gagnon, ESR, CRP significantly elevated, x-ray without bone involvement, MRI without obvious osteomyelitis, changes to be secondary to recent amputation, continue with vancomycin and Merrem, podiatry consult appreciated, no plan for surgical intervention at this time. Awaiting further podiatry recommendations. 2. Coronary artery disease. Status post CABG and cardiac arrest 2, now DNR/DNI. Stable, continue medical management (Plavix, statin, beta hunter) 3. End-stage renal disease. On hemodialysis Monday, Monday and Monday. Further hemodialysis as per nephrology, continue home regimen 4. CVA 2. Continue Plavix and statin 5. Diabetes mellitus. Sliding scale insulin with fingersticks before meals and bedtime 6. Hypertension. Continue home regimen (Norvasc and Coreg) DVT prophylaxis: Heparin subcutaneous GI prophylaxis: Home PPI VS, I&O, 24H, Fishbone Vital Signs/I&O Vital Signs Date Time Temp Pulse Resp B/P (MAP) Pulse Ox O2 Delivery O2 Flow Rate FiO2 01/08/19 14:00 99.3 75 18 136/66 (89) 97 Room Air I&O- Last 24 Hours up to 6 AM 01/08/19 06:00 Intake Total 940 ml Output Total 1000 ml Balance -60 ml Laboratory Data 24H LABS Laboratory Tests 2 01/07/19 22:04: Bedside Glucose (Misc Panel) 130H 01/08/19 05:57: Bedside Glucose (Misc Panel) 107 01/08/19 09:16: Anion Gap 7L, Glomerular Filtration Rate 12.1L, Calcium Level 9.7, Random Vancomycin Level 19.0 01/08/19 11:37: Bedside Glucose (Misc Panel) 89 CBC/BMP Laboratory Tests 01/08/19 09:16 Microbiology Microbiology 01/06/19 Blood Culture - Preliminary, Resulted No Growth after 48 hours. All Specime... JIMMY GARCIA MD Jan 08, 2019 18:25
[2019-01-08] MEDS: ROSUVASTATIN 10 MG TAB (CRESTOR) PO SCH (21:45)
[2019-01-08 22:00] VITALS: BP 146/66
[2019-01-09 06:00] VITALS: BP 155/73
[2019-01-09] MEDS: CALCIUM CARBONATE 500 MG CHEW U/D PO SCH ×3 (06:15→17:58)
[2019-01-09] MEDS: HEPARIN SOD (PORCINE) 5000 UNITS/ML VIAL SC SCH ×2 (06:15→21:00)
[2019-01-09] MEDS: CLOPIDOGREL 75 MG TAB PO SCH (06:16)
[2019-01-09] MEDS: CALCITRIOL 0.25 MCG CAP (S0169) PO SCH (06:16)
[2019-01-09] MEDS: CETIRIZINE (ZyrTEC) 10 MG TAB PO SCH (06:16)
[2019-01-09] MEDS: (RENVELA) SEVELAMER **CARBONate** 800 MG TAB PO SCH ×3 (06:16→17:58)
[2019-01-09] MEDS: PANTOPRAZOLE 40MG TAB (PROTONIX) PO SCH (06:16)
[2019-01-09] MEDS: levETIRAcetam 250MG TABLET (KEPPRA) PO SCH ×2 (06:16→21:00)
[2019-01-09] MEDS: GABAPENTIN 100 MG CAP PO SCH ×2 (06:16→21:00)
[2019-01-09] MEDS: CARVedilol 12.5 MG TAB PO SCH ×2 (06:17→21:00)
[2019-01-09 06:55] LABS: HEMATOCRIT 29.7 % (42.0-52.0); HEMOGLOBIN 8.8 g/dl (13.5-17.5); MEAN CORPUSCULAR HEMOGLOBIN 28.3 pg (27.0-33.0); MEAN CORPUSCULAR HGB CONC 29.6 g/dl (32.0-36.5); MEAN CORPUSCULAR VOLUME 95.5 fl (80.0-96.0); PLATELET COUNT, AUTOMATED 223 10^3/uL (150-450); RED BLOOD COUNT 3.11 10^6/uL (4.30-6.10); WHITE BLOOD COUNT 7.7 10^3/uL (4.0-10.0)
[2019-01-09 07:21] LABS: CALCIUM LEVEL 9.3 MG/DL (8.8-10.2); CREATININE FOR GFR 6.51 MG/DL (0.70-1.30); GLOMERULAR FILTRATION RATE 9.1 (>49); POTASSIUM SERUM 4.1 MEQ/L (3.5-5.1); VANCOMYCIN RANDOM 17.4 UG/ML
[2019-01-09] MEDS: ADVAIR HFA 230/21MCG INHALER INH SCH ×2 (07:24→19:53)
[2019-01-09] MEDS: HumaLOG INSULIN (NovoLOG) PER UNIT SC SCH ×4 (07:30→21:00)
[2019-01-09 08:38] VITALS: BP 141/66
[2019-01-09] MEDS ORDERED: DARBEPOETIN 100 MCG/0.5 ML *DIALYSIS* SYRINGE (J0882) IV SCH (10:45)
--- NOTE | 2019-01-09 12:03 | IPN ---
DATE OF SERVICE: 01/09/2019 Patient seen and examined at the bedside. Denies overnight complaints. States his foot is feeling a little bit better. Vitals are reviewed. Maximum temperature (T-max) is 99. Labs are reviewed. White blood cell count is 7.7. Imaging studies reviewed. Foot MRI reviewed. There is some edema noted at the 5th metatarsal head. No obvious signs of osteomyelitis at the 1st metatarsal head and no signs of abscess. LOWER EXTREMITY EXAMINATION: There are no open wounds at the 5th metatarsal head. There is a pre-ulcerative bruise at the lateral aspect of this 5th metatarsal head. There is a full eschar at the hallux amputation site. Erythema slightly reduced. No malodor or fluid with palpation of the wound. ASSESSMENT: 68-year-old diabetic male, end-stage renal disease, status post right hallux amputation. I do not believe there any infection going on in the 5th metatarsal head as concerned by MRI. At this point, I think patient could be treated with 2 weeks antibiotics for soft tissue. I believe most of the redness is due to the dysvascular foot. He should have followup with Dr. Armas when she is back next week. He could be stable to be discharged to rehabilitation facility as suggested by physical therapist. He should have followup with myself and Dr. Blue as an outpatient.
[2019-01-09 12:04] LABS: PERCENT SATURATION 18.5 % (19.7-50.0)
[2019-01-09] MEDS ORDERED: HEPARIN 1,000 UNITS/ML 10ML VIAL (FOR RADIOLOGY& DIALYSIS ONLY) IV ONE (13:15)
[2019-01-09] MEDS: **VANCO AFTER HD** MISC XX SCH (16:00)
[2019-01-09] MEDS: MEROPENEM INJ 500 MG in IV 1 EA IV SCH (18:00)
--- NOTE | 2019-01-09 20:17 | IPNPDOC ---
Date Seen The patient was seen on 01/09/19. Progress Note HISTORY OF PRESENT ILLNESS: 68-year-old male with past medical history of end- stage renal disease on hemodialysis Monday, Monday, Monday, coronary artery disease status post CABG and cardiac arrest 2, diabetes mellitus, CVA 2 and hypertension presents from home with right toe infection. Patient has had issues with wounds on his feet for over 6 months, has been following with podiatry and Dr. Blue in the wound clinic. He initially underwent fifth digit" on his left foot in May 2018, subsequently, has been having debridements by Dr. Blue in the wound clinic. He underwent right foot first digit amputation [address] Gagnon. As per , the wound started becoming more painful, red and draining a small amount of fluid about 1 week ago. He presented to the hospital today because the wound is worsening and not healing properly. He is otherwise without any complaints, denies any short of breath, chest pain, nausea, vomiting, abdominal pain, diarrhea or constipation. 01/07/2019 Patient seen while receiving hemodialysis, reports slight improvement in right foot pain, no other complaints. 01/08/2019 Patient without complaints, working with physical therapy, reports improvement in foot pain. 01/09/2019 Patient comfortable, working with physical therapy, rehabilitation recommended, no other complaints. 10 point review of system is negative except for above PHYSICAL EXAMINATION: VITAL SIGNS: Please see below. GENERAL: No distress HEENT: Normocephalic, atraumatic, moist mucous membranes NECK: Supple CARDIOVASCULAR EXAMINATION: S1, S2 RESPIRATORY EXAMINATION: Diminished in the bases, clear, no wheezing ABDOMINAL EXAMINATION: Soft, nontender, nondistended, positive bowel sounds EXTREMITIES: Left foot with multiple toes status post debridement and dressing in place, right foot first digit amputation with dressing in place, tender to palpation with surrounding erythema, no drainage appreciated SKIN: No rash NEUROLOGICAL EXAMINATION: no focal deficits PSYCHIATRIC EXAMINATION: Calm and cooperative LABORATORY DATA: See below. IMAGING: Foot X-ray without bone involvement MICROBIOLOGY: Please see below. ASSESSMENT: Exceed 8-year-old male with past medical history of end-stage renal disease on hemodialysis, coronary artery disease status post CABG, cardiac arrest 2, CVA 2, hypertension, diabetes mellitus and hyperlipidemia presents from home with poor wound healing after toe amputation 2 weeks ago. PLAN: 1. Soft tissue infection Status post right foot first digit amputation [address] Gagnon, ESR, CRP significantly elevated, x-ray without bone involvement, MRI without obvious osteomyelitis, changes secondary to recent amputation, switch antibiotics to Keflex 250 mg twice a day, podiatry consult appreciated, no plan for surgical intervention at this time. Awaiting rehabilitation placement. 2. Coronary artery disease. Status post CABG and cardiac arrest 2, now DNR/DNI. Stable, continue medical management (Plavix, statin, beta hunter) 3. End-stage renal disease. On hemodialysis Monday, Monday and Monday. Further hemodialysis as per nephrology, continue home regimen 4. CVA 2. Continue Plavix and statin 5. Diabetes mellitus. Sliding scale insulin with fingersticks before meals and bedtime 6. Hypertension. Continue home regimen (Norvasc and Coreg) DVT prophylaxis: Heparin subcutaneous GI prophylaxis: Home PPI VS, I&O, 24H, Fishbone Vital Signs/I&O Vital Signs Date Time Temp Pulse Resp B/P (MAP) Pulse Ox O2 Delivery O2 Flow Rate FiO2 01/09/19 08:38 98.0 78 20 141/66 (91) 95 Room Air I&O- Last 24 Hours up to 6 AM 01/09/19 06:00 Intake Total 880 ml Output Total 0 ml Balance 880 ml Laboratory Data 24H LABS Laboratory Tests 2 01/08/19 20:38: Bedside Glucose (Misc Panel) 181H 01/09/19 06:26: Nucleated Red Blood Cells % (auto) 0.0, Anion Gap 9, Glomerular Filtration Rate 9.1L, Calcium Level 9.3, Iron Level 27L, Total Iron Binding Capacity 146L, Transferrin % Saturation 18.5L, Ferritin 1544H, Random Vancomycin Level 17.4 01/09/19 11:46: Bedside Glucose (Misc Panel) 113 01/09/19 17:27: Bedside Glucose (Misc Panel) 155H CBC/BMP Laboratory Tests 01/09/19 06:26 Microbiology Microbiology 01/06/19 Blood Culture - Preliminary, Resulted No Growth after 72 hours. All specime... JIMMY GARCIA MD Jan 09, 2019 20:17
[2019-01-09] MEDS: ROSUVASTATIN 10 MG TAB (CRESTOR) PO SCH (21:00)
[2019-01-09] MEDS: CEPHALEXIN 250 MG CAP PO SCH (21:00)
--- NOTE | 2019-01-09 21:46 | IPN ---
DATE: 01/09/2019 SUBJECTIVE: Ayaan seen and examined this morning at the bedside. He denies any overnight events or complaints. He is pending dialysis later today. Podiatry recommends that he follow up further with vascular surgery. The patient denies any chest pain, shortness of breath or leg swelling. Temperature 98.0, pulse 78, respiratory rate 20, blood pressure 141/66, saturating 95% on room air. Intake yesterday was 930, weight in the bed scale today is 77.3. General: The patient is seen awake, alert, oriented, comfortable, lying in bed. Extraocular muscles are intact. Tongue is moist. Neck is supple. Jugular veins are not elevated. Cardiac: S1, S2, regular rate and rhythm. Lungs are clear to auscultation bilaterally. No crackle, rale or rhonchus. Abdomen is soft and nontender. There are bowel sounds. The left upper extremity fistula is patent with thrill and bruit. His foot wounds are not examined. There is no edema in the lower extremities. The patient is oriented x3. He has a chronic mild expressive aphasia. Skin: Normal temperature and turgor. LABORATORY DATA: White count 7.7, hemoglobin 8.8, platelet 223, sodium 137, potassium 4.1, bicarbonate 27. Transferrin saturation 18%, ferritin 1500. INPATIENT MEDICATIONS: Reviewed by myself, his Aranesp was increased to 200 mcg. Remainder medications are unchanged from prior. PROBLEMS: 1. End-stage renal disease on hemodialysis on a Monday, Monday, Monday schedule. His electrolytes are acceptable. His volume status is compensated. His fistula is in good use. We will remove 1.5 to 2 kg of fluid with his hemodialysis treatment today and I am making no change to his chronic dialysis prescription. 2. Anemia related to end-stage kidney disease, iron deficiency and chronic inflammatory state. I am not giving him iron at present given his foot infection and also the ferritin of greater than 1500. He continues on Aranesp with the hemodialysis and the dose has been increased 3. Hypertension. Blood pressures are acceptable and no changes are being made to his current regimen of amlodipine, Carvedilol. 4. Foot infection at the site of right hallux amputation on empiric antimicrobials as per the primary team. Blood cultures are negative. He is afebrile. Random vancomycin level is therapeutic and he continues to follow up with podiatry wound care and is pending vascular followup as well.
[2019-01-09 22:00] VITALS: BP 130/68
[2019-01-10 06:00] VITALS: BP 136/68
[2019-01-10] MEDS: ADVAIR HFA 230/21MCG INHALER INH SCH (07:22)
[2019-01-10] MEDS: HumaLOG INSULIN (NovoLOG) PER UNIT SC SCH ×2 (07:30→12:17)
[2019-01-10] MEDS: (RENVELA) SEVELAMER **CARBONate** 800 MG TAB PO SCH ×2 (08:06→12:17)
[2019-01-10] MEDS: CALCIUM CARBONATE 500 MG CHEW U/D PO SCH ×2 (08:07→12:17)
[2019-01-10] MEDS: HEPARIN SOD (PORCINE) 5000 UNITS/ML VIAL SC SCH (09:11)
[2019-01-10 10:00] VITALS: BP 178/82
[2019-01-10] MEDS: PANTOPRAZOLE 40MG TAB (PROTONIX) PO SCH (10:01)
[2019-01-10] MEDS: CLOPIDOGREL 75 MG TAB PO SCH (10:01)
[2019-01-10] MEDS: CETIRIZINE (ZyrTEC) 10 MG TAB PO SCH (10:01)
[2019-01-10] MEDS: GABAPENTIN 100 MG CAP PO SCH (10:02)
[2019-01-10] MEDS: levETIRAcetam 250MG TABLET (KEPPRA) PO SCH (10:02)
[2019-01-10 10:03] VITALS: BP 178/82
[2019-01-10] MEDS: CARVedilol 12.5 MG TAB PO SCH (10:03)
[2019-01-10] MEDS: CEPHALEXIN 250 MG CAP PO SCH (10:04)
[2019-01-10] MEDS: ACETAMINOPHEN 500 MG TAB PO PRN (12:30)
[2019-01-10] MEDS ORDERED: KEFL250C11 PO (12:35)
--- NOTE | 2019-01-10 18:25 | DS.PDOC ---
Discharge Summary General Date of Admission Jan 06, 2019 at 15:43 Date of Discharge 01/10/2019 Attending Physician: JIMMY GARCIA MD Discharge Summary PROCEDURES PERFORMED DURING STAY: None. ADMITTING DIAGNOSES: 1. Wound infection. DISCHARGE DIAGNOSES: 1. Wound infection. COMPLICATIONS/CHIEF COMPLAINT: Esrd On Hemodialysis Htn Insulin Dependent Diabete. HISTORY OF PRESENT ILLNESS: 68-year-old male with past medical history of end- stage renal disease, hypertension and diabetes mellitus is status post right foot great toe amputation. 2 weeks ago, presented with poor wound healing. He was admitted by podiatry and underwent MRI which did not show any deep tissue infection, podiatry does not believe patient has any emergent need for surgical intervention, advised treatment for soft tissue infection and outpatient follow- up with vascular surgery. Patient initially treated with vancomycin and Merrem, which was later switched to Keflex to complete a 10 day antibiotic regimen. Patient, however physical therapy, will require rehabilitation, patient will be transferred to [facility] for rehabilitation. Patient is clinically, he would have stable for discharge and outpatient follow-up. HOSPITAL COURSE: As above. DISCHARGE MEDICATIONS: Please see below. ALLERGIES: Please see below. PHYSICAL EXAMINATION: VITAL SIGNS: Please see below. GENERAL: No distress HEENT: Normocephalic, atraumatic, moist mucous membranes NECK: Supple CARDIOVASCULAR EXAMINATION: S1, S2, no murmurs RESPIRATORY EXAMINATION: Clear to auscultation, no wheezing ABDOMINAL EXAMINATION: Soft, nontender, nondistended, positive bowel sounds EXTREMITIES: Left upper extremity AV fistula SKIN: Right foot, status post great toe amputation with eschar, no surrounding erythema or drainage NEUROLOGICAL EXAMINATION: Alert and oriented 3, no focal deficits PSYCHIATRIC EXAMINATION: Calm and cooperative LABORATORY DATA: Please see below. IMAGING: MRI negative for deep tissue infection or osteomyelitis PROGNOSIS: Guarded ACTIVITY: As tolerated. DIET: Renal with consistent carbs DISCHARGE PLAN: Patient will be discharged to rehabilitation with outpatient follow-up with podiatry, masses surgery and PCP DISPOSITION: 62 D/T Rehab Facility. DISCHARGE INSTRUCTIONS: 1. As above. DISCHARGE CONDITION: Stable. TIME SPENT ON DISCHARGE: Greater than 36 minutes. Vital Signs/I&Os Vital Signs Date Time Temp Pulse Resp B/P (MAP) Pulse Ox O2 Delivery O2 Flow Rate FiO2 01/10/19 10:03 76 178/82 01/10/19 10:00 98.4 18 98 Room Air I&O- Last 24 Hours up to 6 AM 01/10/19 06:00 Intake Total 866 ml Output Total 2000 ml Balance -1134 ml Laboratory Data Labs 24H Laboratory Tests 2 01/09/19 22:10: Bedside Glucose (Misc Panel) 101 01/10/19 05:43: Random Vancomycin Level 13.3 01/10/19 05:50: Bedside Glucose (Misc Panel) 91 01/10/19 11:14: Bedside Glucose (Misc Panel) 122H FSBS Laboratory Tests Test 01/09/19 22:10 01/10/19 05:50 01/10/19 11:14 Range/Units Bedside Glucose (Misc Panel) 101 91 122 80-115 MG/DL Microbiology Microbiology 01/06/19 Blood Culture - Preliminary, Resulted No Growth after 72 hours. All specime... Discharge Medications Scheduled Amlodipine Besylate (Amlodipine Besylate) 2.5 Mg Tablet, 2.5 MG PO QHS, (R eported) Calcitriol (Calcitriol) 0.25 Mcg Cap, 0.25 MCG PO 3XW, (Reported) RECEIVES AT DIALYSIS ON MON, MON, MON Calcium Carbonate (Tums Ultra) 1,000 Mg Chw, 1,000 MG PO WM, (Reported) Carvedilol (Carvedilol) 12.5 Mg Tablet, 12.5 MG PO BID, (Reported) Cephalexin (Keflex) 250 Mg Capsule, 250 MG PO BID Cetirizine HCl (Cetirizine HCl) 10 Mg Tablet, 10 MG PO DAILY, (Reported) Cholecalciferol (Vitamin D3) (Vitamin D3) 50,000 Unit Capsule, 50,000 UNITS PO Q7D, (Reported) WEDNESDAYS Clopidogrel Bisulfate (Clopidogrel) 75 Mg Tab, 75 MG PO DAILY, (Reported) Fluticasone Propion/Salmeterol (Advair Hfa 230-21 Mcg Inhaler) 12 Gm Hfa.aer.ad, 2 PUFF INH BID, (Reported) Gabapentin (Neurontin) 100 Mg Capsule, 100 MG PO BID, (Reported) Insulin Human NPH (Humulin N) 100 Unit/1 Ml Vial, 1 DOSE SC DAILY, (Reported) SLIDING SCALE; REPORTED USUALLY BETWEEN 2 AND 4 UNITS Levetiracetam (Keppra) 250 Mg Tablet, 250 MG PO BID, (Reported) Pantoprazole Sodium (Protonix) 40 Mg Tab, 40 MG PO DAILY, (Reported) Rosuvastatin Calcium (Crestor) 10 Mg Tablet, 10 MG PO QHS, (Reported) Sevelamer Carbonate (Renvela) 800 Mg Tab, 1,600 MG PO WM, (Reported) Vit B Comp No.3/Folic/C/Biotin (Radha-Haja Rx Tablet) 1 Each Tablet, 1 TAB PO DAILY, (Reported) Scheduled PRN Acetaminophen (Acetaminophen) 500 Mg Tablet, 1,000 MG PO QID PRN for PAIN, (Reported) Albuterol Sulfate (Proair Hfa) 8.5 Gm Hfa.aer.ad, 2 PUFF INH Q4H PRN for SOB/WHEEZING, (Reported) Allergies Coded Allergies: aspirin (Verified Allergy, Severe, CLOSES AIRWAY, 06/15/18) JIMMY GARCIA MD Jan 10, 2019 18:25
== END 2019-01-10 13:10 | DRG 564 ==
LOC: EDBD 13:21 → M ED 13:21 → M ED INP 15:43 → M MSPAV 16:37
PROVIDERS: ADMIT Internal Medicine; ATTEND Internal Medicine
PROC: 5A1D70Z Performance of Urinary Filtration, Intermittent, Less than 6 Hours Per Day (ICD-10-PCS; principal; 2019-01-07)
DX: T87.43 Infection of amputation stump, right lower extremity (principal); N18.6 End stage renal disease; I12.0 Hypertensive chronic kidney disease with stage 5 chronic kidney disease or end stage renal disease; N25.81 Secondary hyperparathyroidism of renal origin; I25.10 Atherosclerotic heart disease of native coronary artery without angina pectoris; E11.51 Type 2 diabetes mellitus with diabetic peripheral angiopathy without gangrene; D63.1 Anemia in chronic kidney disease; E11.22 Type 2 diabetes mellitus with diabetic chronic kidney disease; Z86.73 Personal history of transient ischemic attack (TIA), and cerebral infarction without residual deficits; Z86.74 Personal history of sudden cardiac arrest; Z95.1 Presence of aortocoronary bypass graft; I50.9 Heart failure, unspecified; Z90.49 Acquired absence of other specified parts of digestive tract; Y83.6 Removal of other organ (partial) (total) as the cause of abnormal reaction of the patient, or of later complication, without mention of misadventure at the time of the procedure; Z99.2 Dependence on renal dialysis; Z89.422 Acquired absence of other left toe(s); Z79.4 Long term (current) use of insulin; Z79.899 Other long term (current) drug therapy

== ENCOUNTER → 2019-01-15 | Outpatient (REF) ==
[~2019-01-15] MED LIST changes: +KEFL250C11 PO; +RENATAB6 PO; +VITA1CAP25 PO
[2019-01-15 15:45] LABS: HEMATOCRIT 30.1 % (42.0-52.0); HEMOGLOBIN 8.7 g/dl (13.5-17.5); MEAN CORPUSCULAR HEMOGLOBIN 28.5 pg (27.0-33.0); MEAN CORPUSCULAR HGB CONC 28.9 g/dl (32.0-36.5); MEAN CORPUSCULAR VOLUME 98.7 fl (80.0-96.0); PLATELET COUNT, AUTOMATED 225 10^3/uL (150-450); RED BLOOD COUNT 3.05 10^6/uL (4.30-6.10); WHITE BLOOD COUNT 7.6 10^3/uL (4.0-10.0)
[2019-01-15 16:08] LABS: CALCIUM LEVEL 9.4 MG/DL (8.8-10.2); CREATININE FOR GFR 6.19 MG/DL (0.70-1.30); GLOMERULAR FILTRATION RATE 9.6 (>49)
== END ==
PROVIDERS: ATTEND Internal Medicine
DX: Z79.899 Other long term (current) drug therapy (principal)

== ENCOUNTER → 2019-01-28 | Outpatient (REF) ==
[2019-01-28 12:07] LABS: HEMATOCRIT 32.3 % (42.0-52.0); HEMOGLOBIN 9.1 g/dl (13.5-17.5); MEAN CORPUSCULAR HEMOGLOBIN 27.8 pg (27.0-33.0); MEAN CORPUSCULAR HGB CONC 28.2 g/dl (32.0-36.5); MEAN CORPUSCULAR VOLUME 98.8 fl (80.0-96.0); PLATELET COUNT, AUTOMATED 245 10^3/uL (150-450); RED BLOOD COUNT 3.27 10^6/uL (4.30-6.10); WHITE BLOOD COUNT 7.7 10^3/uL (4.0-10.0)
[2019-01-28 12:35] LABS: CALCIUM LEVEL 9.7 MG/DL (8.8-10.2); CREATININE FOR GFR 4.25 MG/DL (0.70-1.30); GLOMERULAR FILTRATION RATE 14.9 (>49); POTASSIUM SERUM 4.1 MEQ/L (3.5-5.1)
== END ==
PROVIDERS: ATTEND Internal Medicine
DX: Z00.00 Encounter for general adult medical examination without abnormal findings (principal)

== ENCOUNTER → 2019-01-31 | Outpatient (CLI) | payer MEDICARE, OTHER | LOC: M IRPRO 08:01 | PROVIDERS: ATTEND Surgery Vascular Surgery | DX: E11.621 Type 2 diabetes mellitus with foot ulcer (principal); L97.519 Non-pressure chronic ulcer of other part of right foot with unspecified severity; Z53.9 Procedure and treatment not carried out, unspecified reason ==

== ENCOUNTER → 2019-02-26 | Outpatient (CLI) | payer MEDICARE, OTHER ==
[~2019-02-26] MED LIST changes: +HEPARIN 1,000 UNITS/ML 10ML VIAL (FOR RADIOLOGY& DIALYSIS ONLY) As Ordered ONE; +ISOVUE-300 61% 50ML VIAL (Q9967) As Ordered ONE; +LIDOCAINE 1% MDV 20ML VIAL As Ordered ONE; +MIDAZOLAM INJ 2 MG/2 ML VIAL (J2250) As Ordered ONE; +NITROGLYCERIN IN D5W 25MG/250ML (100MCG/ML) As Ordered ONE; +fentaNYL 100 MCG/2 ML INJECTION (J3010) As Ordered ONE
--- NOTE | 2019-02-26 13:16 | ROOPDOC ---
[facility] [place] Report Of Operation Report of Operation DATE OF PROCEDURE: 02/26/19 PREPROCEDURE DIAGNOSES: Atherosclerosis of the [place] arteries with nonhealing toe amputation right foot POSTPROCEDURE DIAGNOSES: Same. PROCEDURE: 1. Ultrasound-guided access left common femoral artery 2. Aortoiliofemoral arteriogram with selection of right common femoral artery & right superficial femoral artery and a right lower extremity runoff was performed 3. Selected views of right posterior tibial and peroneal arteries distally 4. Cross chronic total occlusion right posterior tibial artery and angioplasty with 2 x 220 Leonard balloon and 3 x 220 Leonard balloon 5. Cross chronic total occlusion origin of the peroneal artery and angioplasty with 3 x 220 Leonard balloon 6. Cross chronic total occlusion proximal and mid anterior tibial artery and angioplasty with 2 x 220 and 3 x 220 Leonard balloon 7. Completion arteriograms 8. Mynx closure left common femoral artery SURGEON: Lindsey Marcos MD ANESTHESIA: Local anesthesia 6 mL lidocaine. No sedation was used for this procedure. Heparin 2000 units was given IV. 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 He has had tibial intervention in the past with Dr. Blank, and both times the patient coded at the end of the procedure. There was concern it may be related to protamine administration versus sedation, but the exact etiology was unclear. The patient had been thoroughly worked up by a acrylic fabricator and neurologist who both felt it was safe to proceed with the procedure. We do so after a lengthy conversation with the patient and his about the extreme risks of the procedure in light of the fact he's had these troubles in the past. They're both aware that if there is even the slightest change in vital signs her mental status we will be stopping the procedure immediately. We also will attempt to do the procedure without sedation if the patient can tolerate it, to diminish the risk of cardiopulmonary instability. They both feel it is worth the risk to try to prevent limb loss. Risks benefits and alternatives were explained to the patient and his and they are agreeable to proceed. Informed consent was obtained. INTERPRETATION: 1. The aortoiliofemoral segments are widely patent. On the right, we have a widely patent common femoral artery with good runoff through the profunda and the SFA to mildly ectatic popliteal artery (no flow limitation). Distal to this, there is significant chronic tibial disease. The origin of the AT is patent and then it has multiple occlusions through the proximal third of the vessel with good runoff distally into the DP. The peroneal artery is occluded for 2 cm at its origin and then reconstitutes through collateral circulation and fills distally all the way to the ankle. The posterior tibial artery is occluded near its origin and does not reconstitute until the ankle through thready collaterals that provided limited runoff. 2. After angioplasty of the posterior tibial artery, there was significant spasm and no flow. We angioplasty again with a second smaller balloon, and had some improvement in flow distally, but still spasm present. I felt it better to leave this vessel alone for a moment and will move onto one of the other tibials and see if the spasm resolved with some time. In fact it did. With the next several tibial arteriograms, the flow improved each time. The vessel is patent from the origin to the foot. 3. 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 I left this alone and turned my attention to the anterior tibial artery, and then returned to the peroneal artery at the end of the case. Initially, we ran into the same problem trying to cross into the port lions vessel, but after 30 minutes of aggressive wire work, I was able to cross into the true lumen of the peroneal artery distally and angioplasty the length of the vessel. We then had in-line flow in the occlusion was opened, and no extravasation or AV fistula was present on those completion images. 4. The anterior tibial artery occlusions were crossed and we angioplastied successfully with residual ectasia present due to chronic heavy plaque, but rapid flow through the vessel to the foot and good runoff to the distal foot. 5. Final imaging after angioplasty and administration of 200 g of nitroglycerin for vasodilation had 3 vessel runoff with rapid in-line flow from the popliteal to the distal foot. No extravasation, embolization, or dissections noted. REPORT OF PROCEDURE: The patient was brought to the angiographic suite in stable condition and placed supine on the fluoroscopic table. His bilateral groins were prepped and draped in a sterile fashion. A timeout was performed. Local anesthesia was ministered skin and subcutaneous tissue over the left groin. A microneedle was used to access the left common femoral artery under ultrasound guidance. A wire was passed through this access under fluoroscopic guidance and the needle was removed. The micro-sheath was placed in a Glidewire was advanced through this into the aorta. A 6 Argentine sheath was placed and flushed with saline. We advanced an Omni flush catheter over the wire into the distal aorta. An aortoiliofemoral arteriogram was performed, please interpretation above. We then went up and over the bifurcation with the Glidewire and Omni flush catheter and selected the right common femoral artery. Arteriograms of the right lower extremity were performed, please interpretation above. We then utilized a Glidewire to select the SFA and advanced the Omni flush catheter into the superficial femoral artery. Runoff of the right lower extremity was performed. We then advanced a Glidewire into the popliteal artery and attempted to exchange the sheath for a 90 cm destination 6 Argentine sheath, but due to the tight angle of the bifurcation, we could not advance the catheter. We removed the sheath and replaced the short 6 Argentine sheath and flushed the sheath with saline. We attempted to exchange the wire through glide cath for a stiff Amplatz wire to help with advancement of the 90 cm sheath, but could not advance the stiff Amplatz through the glide cath over the bifurcation due to the tight angulation. As a last effort, the 90 cm sheath was gently bent into a curve to see if that would help to track up over the bifurcation with the stiff Glidewire. Care was taken to carefully advanced the sheath over the bifurcation and in fact this didn't work and we were able to advance the sheath into the popliteal artery. The sheath was flushed with saline. We then utilized an O18 Glidewire advantage to cross first into the posterior tibial artery and performed angioplasty with a 3 x 220 and 2 x 220 Leonard balloon along the length of the vessel for three- minute inflations. Following this, there was spasm in the vessel but flow is still present distally. Please interpretation above. We attempted to cross the chronic total occlusion in the origin of the peroneal artery but were unsuccessful, please interpretation above we aborted this temporarily and turned our attention to the anterior tibial artery. We were able to navigate the wire through the occlusions in the anterior tibial artery and then angioplasty first with a 2 x 220 and then by 3 x 220 Leonard balloon for three-minute inflations along the length of the proximal and mid vessels. Following this there was a marked improvement in flow and we also had flow through the posterior tibial artery. We then return to the peroneal artery and spent about 30 minutes trying to cross into the true lumen below the occlusion and eventually, with persistent wire work, we were able to navigate to the distal vessel. A quick injection of contrast confirmed we were in the true lumen and we then angioplasty across the proximal and midportion of the vessel with a 3 x 220 Leonard balloon for three- minute inflations. Following administration of 200 g of nitroglycerin through the sheath and 3 vessel angioplasty, there was in-line 3 vessel runoff to the foot with rapid flow all the way to the distal foot. No flow limiting stenoses remained. No embolization, extravasation, AV fistulas, or dissections were noted. This concluded our procedure. We exchange the sheath over the wire for a short 6 Argentine sheath and flushed sheath with saline. We then deployed Mynx closure device in the left femoral vessel with good hemostasis. Pressure was held for 15 minutes and the patient was taken back to recovery in stable condition. He tolerated the procedure well with no sedation, and he did not have any hemodynamic instability during the case. ESTIMATED BLOOD LOSS: Approximately 10 mL. COMPLICATIONS: None. PLAN: Our plan will be to see the patient back to check his groin access site and to discuss options for his left lower extremity. His says that he needs intervention for that leg as well. We will review his imaging and make a plan for this. Okay to resume Plavix tomorrow. Okay to resume home medications and diet. LINDSEY MARCOS MD Feb 26, 2019 13:16
[2019-02-26 16:30] VITALS: BP 164/79
== END ==
LOC: M IRPRO 08:26
PROVIDERS: ATTEND Surgery Vascular Surgery
DX: I70.235 Atherosclerosis of native arteries of right leg with ulceration of other part of foot (principal); I70.92 Chronic total occlusion of artery of the extremities
CPT/HCPCS: 37228; 37232; 75710; C1725; C1729; C1760; C1769; C1887; C1894; J2250; J3010; Q9967

== ENCOUNTER → 2019-03-07 | Outpatient (REF) | payer MEDICARE, OTHER ==
[~2019-03-07] MED LIST changes: -HEPARIN 1,000 UNITS/ML 10ML VIAL (FOR RADIOLOGY& DIALYSIS ONLY) As Ordered ONE; -ISOVUE-300 61% 50ML VIAL (Q9967) As Ordered ONE; -LIDOCAINE 1% MDV 20ML VIAL As Ordered ONE; -MIDAZOLAM INJ 2 MG/2 ML VIAL (J2250) As Ordered ONE; -NITROGLYCERIN IN D5W 25MG/250ML (100MCG/ML) As Ordered ONE; -fentaNYL 100 MCG/2 ML INJECTION (J3010) As Ordered ONE
== END ==
LOC: M LAB REF 16:09
PROVIDERS: ATTEND Physician Assistant
DX: E11.621 Type 2 diabetes mellitus with foot ulcer (principal)

== ENCOUNTER → 2019-03-07 | Outpatient (REF) ==
[2019-03-07 12:24] LABS: HEMATOCRIT 32.9 % (42.0-52.0); HEMOGLOBIN 9.6 g/dl (13.5-17.5); MEAN CORPUSCULAR HEMOGLOBIN 28.2 pg (27.0-33.0); MEAN CORPUSCULAR HGB CONC 29.2 g/dl (32.0-36.5); MEAN CORPUSCULAR VOLUME 96.8 fl (80.0-96.0); PLATELET COUNT, AUTOMATED 187 10^3/uL (150-450)
[2019-03-07 12:40] LABS: CALCIUM LEVEL 8.8 MG/DL (8.8-10.2); CREATININE FOR GFR 4.37 MG/DL (0.70-1.30); GLOMERULAR FILTRATION RATE 14.3 (>42); POTASSIUM SERUM 4.5 MEQ/L (3.5-5.1)
== END ==
PROVIDERS: ATTEND Internal Medicine
DX: R56.9 Unspecified convulsions (principal)

== ENCOUNTER → 2019-04-09 | Outpatient (CLI) | payer MEDICARE, OTHER ==
[~2019-04-09] MED LIST changes: +HEPARIN 1,000 UNITS/ML 10ML VIAL (FOR RADIOLOGY& DIALYSIS ONLY)(J1644-10) As Ordered ONE; +ISOVUE-300 61% 50ML VIAL (Q9967) As Ordered ONE; +LIDOCAINE 1% MDV 20ML VIAL As Ordered ONE; +MIDAZOLAM INJ 2 MG/2 ML VIAL (J2250) As Ordered ONE; +fentaNYL 100 MCG/2 ML INJECTION (J3010) As Ordered ONE
[2019-04-09 09:17] LABS: HEMATOCRIT 39.9 % (42.0-52.0); HEMOGLOBIN 11.9 g/dl (13.5-17.5); MEAN CORPUSCULAR HEMOGLOBIN 27.8 pg (27.0-33.0); MEAN CORPUSCULAR HGB CONC 29.8 g/dl (32.0-36.5); MEAN CORPUSCULAR VOLUME 93.2 fl (80.0-96.0); PLATELET COUNT, AUTOMATED 162 10^3/uL (150-450); RED BLOOD COUNT 4.28 10^6/uL (4.30-6.10); WHITE BLOOD COUNT 8.8 10^3/uL (4.0-10.0)
[2019-04-09 09:31] LABS: CALCIUM LEVEL 9.4 MG/DL (8.8-10.2); CREATININE FOR GFR 4.74 MG/DL (0.70-1.30); GLOMERULAR FILTRATION RATE 13.1 (>42); POTASSIUM SERUM 4.5 MEQ/L (3.5-5.1)
--- NOTE | 2019-04-09 11:41 | ROOPDOC ---
[facility] Report Of Operation Report of Operation DATE OF PROCEDURE: 04/09/19 PREPROCEDURE DIAGNOSES: Atherosclerosis of the [place] vessels with nonhealing wound left foot POSTPROCEDURE DIAGNOSES: Same PROCEDURE: 1. Ultrasound-guided access right common femoral artery 2. Aortoiliofemoral arteriogram was selection of left common femoral and left superficial femoral artery and left lower extremity runoff 3. Cross chronic total occlusion left peroneal artery and selection distal peroneal artery with arteriogram 4. Angioplasty left peroneal artery with 2.5 x 2 20 Leonard balloon 5. Angioplasty left popliteal artery with 4 x 100 Leonard balloon 6. Attempt to cross anterior tibial and posterior tibial artery chronic total occlusion, aborted 7. Angioplasty left superficial femoral artery with 6 x 200 Reynolds balloon 8. Completion arteriograms 9. Mynx closure right common femoral artery SURGEON: Lindsey Marcos MD ANESTHESIA: Local anesthesia 7 mL lidocaine. No sedation was used for this procedure. In the past, the patient coded at the end of the procedure [address], and we did his last arteriogram without sedation, and he tolerated this well. We did the procedure today without sedation and the patient tolerated this well. CONTRAST: 63 mL Isovue 300 INDICATION FOR PROCEDURE: This is a very pleasant 69-year-old gentleman with severe distal peripheral vascular disease and heavily calcified vessels, nonhealing wounds the bilateral lower extremities. We were able to open severe occlusions in the right lower extremity at his last arteriogram, and we discussed the risk benefits and alternatives to another arteriogram of the left lower extremity within effort at providing additional vascularization to help with wound healing. The patient is agreeable to proceed. Informed consent was obtained. INTERPRETATION: 1. The aorta is heavily calcified but widely patent. The right common iliac artery and external iliac artery and hypogastric are widely patent. The left common iliac artery has about a 20% stenosis due to heavy calcified plaque, but this is not flow-limiting. The external iliac and hypogastric are patent. The left common femoral artery is widely patent and runs off well into the profunda. The SFA is patent proximally, but there is heavy plaque that provides some flow limitation although no focal stenosis is noted, with the most significant area being near Ced's canal. The popliteal artery stent, pre-existing, is patent, but the popliteal artery from the mid distal portion is heavily stenotic. There is no in-line tibial flow to the foot. There are short segments of the anterior tibial artery that are patent through collaterals, the distal peroneal artery is patent through collaterals, and the distal posterior tibial artery is patent through collaterals. The main collaterals are from the popliteal artery to the posterior tibial artery. This provides flow to the plantar vessels in the foot. 2. After angioplasty of the peroneal artery occlusion with a 2.5 x 220 Leonard balloon, we still had some flow limitation due to heavy plaque. A second three- minute angioplasty was performed and there was widely patent flow through to the distal peroneal artery which collateralizes to the anterior tibial artery and helps to fill the foot. No extravasation, embolization, or dissection was noted. 3. After angioplasty of the popliteal artery with a 4 x 100 Leonard balloon, we had widely patent flow through the popliteal artery including the pre-existing stent in the distal artery as well. No extravasation embolization or dissection was noted. 4. After angioplasty of the superficial femoral artery, there is widely patent flow through the SFA with no flow limitation at Ced's canal or elsewhere. No dissection embolization or extravasation were noted. REPORT OF OPERATION: The patient was brought to the angiographic suite in stable condition and placed supine on the fluoroscopic table. His bilateral groins were prepped and draped in a sterile fashion. A timeout was performed. Local anesthesia was a machine attendant to skin and subcutaneous tissue over the right common femoral artery. A microneedle was used to access the artery under ultrasound guidance. A wire was passed through this access and a 4 Ghanaian micro-sheath was placed over the wire using a Seldinger technique and flushed with saline. A Glidewire was advanced through this access into the aorta under fluoroscopic guidance and an Omni flushed catheter was advanced over the wire using the Seldinger technique. Aortoiliofemoral arteriograms were performed, please see interpretation above. We then went up and over the bifurcation with the Omni flushed catheter in the Glidewire. We selected the left common femoral artery and arteriograms were performed. Please see interpretation above. We then selected the left superficial femoral artery and advanced the catheter to the mid artery. Left lower extremity runoff was performed. Please see interpretation above. We then advanced an Amplatz superstiff wire through the catheter into the distal SFA under fluoroscopic guidance and exchange the sheath for a 90 cm 6 Ghanaian sheath. The sheath was flushed with saline. We then exchange the wire for an O18 Glidewire advantage and advance this through the popliteal artery into the tibial vessels. We were able to cross the occlusion in the peroneal artery and with the help of her [place] we were able to cross all the way to the ankle. Adequate contrast injection and ankle confirm we were in the true lumen. We also noted collateralization to the anterior tibial artery. We then angioplasty the length of the vessel with three-minute inflations, proximally and distally. We then did a second proximal angioplasty for three-minute inflations. Following this, there was widely patent inflow through the peroneal artery to the ankle. It did collateralizes with the anterior tibial artery and help to fill the foot. We spent quite a bit of time trying to cross into the anterior tibial artery which was occluded flushed at its origin, but were unsuccessful. We also tried to find the origin of the posterior tibial artery disease we can open up in-line flow through that vessel, but also were unsuccessful despite aggressive efforts. We then performed and angioplasty for three-minute inflation across the popliteal artery with a 4 x 100 Leonard balloon. A second ablation was done distally and following this there was widely patent inflow through the popliteal. We then angioplasty in the SFA with a 6 x 200 Reynolds balloon for three-minute inflation. Following this the previously seen heavy plaque and flow limitation, especially Ced's canal, was resolved and there was rapid flow with no flow limitation. After all angioplasty, there was no dissection embolization or extravasation noted. Our final images showed excellent in-line flow to the foot through the peroneal artery collateralizing to the anterior tibial, and good flow through the distal posterior tibial artery due to for large collaterals from the popliteal artery to the posterior tibial artery in the mid calf. Both vessels runoff through the plantar vessels and supply the foot well. We would have been much happier if we could provide at least two- vessel runoff to the foot, but I believe the flow is much improved after extensive work and angioplasty. We exchanged the sheath for short 6 Ghanaian sheat h over an O35 wire and applied a Mynx closure device in the right common femoral artery with good hemostasis. Pressure was held for 10 minutes, sterile dressings were applied, and the patient was taken to recovery in stable condition. There were no complications and he tolerated the procedure well. ESTIMATED BLOOD LOSS: Approximately 5 mL. COMPLICATIONS: None. PLAN: Okay for patient to resume home medications and diet. We'll see him in a week to check his groin access site. Resume Plavix. LINDSEY MARCOS MD Apr 09, 2019 11:41
[2019-04-09 14:58] VITALS: BP 158/72
== END ==
LOC: M IRPRO 08:21
PROVIDERS: ATTEND Surgery Vascular Surgery
DX: I70.245 Atherosclerosis of native arteries of left leg with ulceration of other part of foot (principal); I70.92 Chronic total occlusion of artery of the extremities; L97.529 Non-pressure chronic ulcer of other part of left foot with unspecified severity; N18.6 End stage renal disease; Z80.0 Family history of malignant neoplasm of digestive organs; Z80.1 Family history of malignant neoplasm of trachea, bronchus and lung; Z86.73 Personal history of transient ischemic attack (TIA), and cerebral infarction without residual deficits; Z95.5 Presence of coronary angioplasty implant and graft; Z99.2 Dependence on renal dialysis
CPT/HCPCS: 37224; 37228; 37232; 75710; 80048; 85027; C1725; C1729; C1760; C1769; C1887; C1894; J1644; Q9967

== ENCOUNTER → 2019-04-16 | Outpatient (REF) | payer MEDICARE, OTHER ==
[~2019-04-16] MED LIST changes: +AMMO12CR7 TOP; +COLC1TAB13 PO; -HEPARIN 1,000 UNITS/ML 10ML VIAL (FOR RADIOLOGY& DIALYSIS ONLY)(J1644-10) As Ordered ONE; +INSUNSD SQ; -ISOVUE-300 61% 50ML VIAL (Q9967) As Ordered ONE; -LIDOCAINE 1% MDV 20ML VIAL As Ordered ONE; +LOPE-39 PO; -MIDAZOLAM INJ 2 MG/2 ML VIAL (J2250) As Ordered ONE; -fentaNYL 100 MCG/2 ML INJECTION (J3010) As Ordered ONE
== END ==
LOC: M LAB REF 11:36
PROVIDERS: ATTEND Surgery
DX: E11.621 Type 2 diabetes mellitus with foot ulcer (principal); L97.514 Non-pressure chronic ulcer of other part of right foot with necrosis of bone; L97.524 Non-pressure chronic ulcer of other part of left foot with necrosis of bone

== ENCOUNTER 2019-04-19 14:22 | Emergency (ER) | payer MEDICARE, OTHER, MEDICAID ==
[~2019-04-19 14:22] MED LIST changes: -AMMO12CR7 TOP; -COLC1TAB13 PO; -INSUNSD SQ; -LOPE-39 PO
[2019-04-19 15:38] LABS: BASO % 0.3 % (0.0-1.0); EOS # 0.1 10^3/uL (0.0-0.5); EOS % 1.3 % (0.0-3.0); HEMATOCRIT 38.4 % (42.0-52.0); HEMOGLOBIN 11.5 g/dl (13.5-17.5); LYMPH # 0.8 10^3/uL (1.5-5.0); LYMPH % 11.7 % (24.0-44.0); MEAN CORPUSCULAR HEMOGLOBIN 28.3 pg (27.0-33.0); MEAN CORPUSCULAR HGB CONC 29.9 g/dl (32.0-36.5); MEAN CORPUSCULAR VOLUME 94.6 fl (80.0-96.0); MONO # 0.4 10^3/uL (0.0-0.8); MONO % 5.8 % (0.0-5.0); NEUTROPHILS # 5.6 10^3/uL (1.5-8.5); NEUTROPHILS % 80.3 % (36.0-66.0); PLATELET COUNT, AUTOMATED 213 10^3/uL (150-450); RED BLOOD COUNT 4.06 10^6/uL (4.30-6.10); WHITE BLOOD COUNT 6.9 10^3/uL (4.0-10.0)
[2019-04-19 16:06] LABS: BLOOD UREA NITROGEN 34 MG/DL (7-18); CALCIUM LEVEL 9.8 MG/DL (8.8-10.2); CARBON DIOXIDE LEVEL 31 MEQ/L (21-32); CHLORIDE LEVEL 97 MEQ/L (98-107); CK-MB VALUE MASS 1.7 NG/ML (<3.6); CPK CREATINE PHOSPHOKINASE 39 U/L (39-308); CREATININE FOR GFR 5.55 MG/DL (0.70-1.30); GLOMERULAR FILTRATION RATE 10.9 (>42); GLUCOSE, FASTING 124 MG/DL (70-100); MAGNESIUM LEVEL 2.2 MG/DL (1.8-2.4); MB/CK RELATIVE INDEX 4.36 (< OR =4); POTASSIUM SERUM 4.7 MEQ/L (3.5-5.1); SODIUM LEVEL 136 MEQ/L (136-145); TROPONIN I < 0.02 NG/ML (< 0.10)
[2019-04-19] MEDS ORDERED: LOPE-39 PO (18:05)
[2019-04-19] MEDS ORDERED: COLC1TAB13 PO (18:05)
[2019-04-19] MEDS ORDERED: INSUNSD SQ (18:05)
[2019-04-19] MEDS ORDERED: AMMO12CR7 TOP (18:05)
[2019-04-19] MEDS ORDERED: ZOFR4TAB16 PO (18:05)
--- NOTE | 2019-04-19 18:09 | REP ---
HISTORY: Cough. History of aspiration. COMPARISON: 01/06/2019 The technique utilized in obtaining the radiograph has magnified the cardiac silhouette and accentuated the interstitial markings. Note is again made of cardiomegaly accentuated by technique. Note is again made of previous median sternotomy, status quo. There are chronic basilar changes, left greater than right, status quo. No new patchy opacities or pleural effusions have developed. There is no change in the osseous structures. IMPRESSION: No significant change. Electronically Signed by Shon Arthur DO 04/19/2019 06:50 P
[2019-04-19 18:31] VITALS: BP 177/77
--- NOTE | 2019-04-19 19:41 | ECGEPIP ---
[facility] - ED Test Date: 2019-04-19 Pat Name: RENATA SALES Department: Room: - Gender: Male Title Search Manager: allan : 1950 Requested By: Suzanne Treviño Order Number: [id number] Reading MD: Guerrero Diamond Measurements Intervals Reading Rate: 82 P: 60 OR: 226 QRS: 35 QRSD: 88 T: 43 QT: 384 QTc: 449 Interpretive Statements SINUS RHYTHM WITH FIRST DEGREE AV BLOCK NONSPECIFIC T-WAVE ABNORMALITY SIMILAR TO 09/19/18 Electronically Signed on 04-19-2019 19:41:00 EDT by Guerrero Diamond
== END 2019-04-19 18:50 | disposition home or self-care (01) ==
LOC: M ED 14:22
DX: R55 Syncope and collapse (principal); I44.0 Atrioventricular block, first degree; E11.9 Type 2 diabetes mellitus without complications; I12.0 Hypertensive chronic kidney disease with stage 5 chronic kidney disease or end stage renal disease; Z99.2 Dependence on renal dialysis; Z79.4 Long term (current) use of insulin; Z79.899 Other long term (current) drug therapy; Z88.8 Allergy status to other drugs, medicaments and biological substances

== ENCOUNTER → 2019-05-21 | Outpatient (REF) | payer MEDICARE, OTHER, MEDICAID ==
[~2019-05-21] MED LIST changes: +AMMO12CR7 TOP; +COLC1TAB13 PO; +INSUNSD SQ; +LOPE-39 PO
== END ==
LOC: M LAB REF 19:40
PROVIDERS: ATTEND Physician Assistant
DX: L97.514 Non-pressure chronic ulcer of other part of right foot with necrosis of bone (principal)

== ENCOUNTER → 2019-05-21 | Outpatient (REF) | payer MEDICARE, OTHER, MEDICAID | LOC: SKLAB3 17:47 | PROVIDERS: ATTEND Internal Medicine | DX: M86.9 Osteomyelitis, unspecified (principal) ==

== ENCOUNTER → 2019-05-22 | Outpatient (REF) ==
[2019-05-22 13:00] LABS: HEMATOCRIT 38.3 % (42.0-52.0); HEMOGLOBIN 11.3 g/dl (13.5-17.5); MEAN CORPUSCULAR HEMOGLOBIN 27.3 pg (27.0-33.0); MEAN CORPUSCULAR HGB CONC 29.5 g/dl (32.0-36.5); MEAN CORPUSCULAR VOLUME 92.5 fl (80.0-96.0); PLATELET COUNT, AUTOMATED 154 10^3/uL (150-450); RED BLOOD COUNT 4.14 10^6/uL (4.30-6.10); WHITE BLOOD COUNT 8.5 10^3/uL (4.0-10.0)
[2019-05-22 13:06] LABS: ERYTHROCYTE SEDIMENTATION RATE 58 mm/hr (0-20)
[2019-05-22 13:15] LABS: C REACTIVE PROTEIN QUANTITATIV 2.06 MG/DL (0.00-0.30); CALCIUM LEVEL 8.5 MG/DL (8.8-10.2); CREATININE FOR GFR 6.36 MG/DL (0.70-1.30); GLOMERULAR FILTRATION RATE 9.3 (>42); POTASSIUM SERUM 4.6 MEQ/L (3.5-5.1)
== END ==
PROVIDERS: ATTEND Internal Medicine
DX: M86.9 Osteomyelitis, unspecified (principal)

== ENCOUNTER → 2019-05-23 | Outpatient (CLI) | payer MEDICARE, OTHER, MEDICAID ==
--- NOTE | 2019-05-23 14:48 | REP ---
BILATERAL LOWER EXTREMITY DUPLEX DOPPLER ARTERIAL ULTRASOUND: Real-time ultrasound evaluation and duplex Doppler interrogation of bilateral lower extremity arterial systems is performed. On the right, there is significant plaquing and calcification of the superficial femoral and popliteal arteries. Biphasic waveforms are seen throughout the common femoral, superficial femoral and popliteal arteries with normal flow velocities. Monophasic waveforms are seen in the calf arteries. There is occlusion of the right posterior tibial artery. There is fairly high-grade stenosis of the proximal right anterior tibial artery, by velocity measurements there is approximately 6 to 1 high grade stenosis. There are monophasic waveforms throughout the anterior tibial artery in the tibioperoneal trunk. On the left, normal flow velocities and biphasic waveforms are seen throughout the common femoral, superficial femoral and popliteal arteries. There is a stent in the distal superficial femoral and popliteal arteries, which is patent. Significant plaquing and calcification is seen throughout the left lower extremity arterial system. There is occlusion of the proximal posterior tibial artery. There appears to be minimal reconstitution and triple flow of the distal posterior tibial artery. There is severe narrowing of the proximal left anterior tibial artery which trickle flow. There is very slow flow distally of the anterior tibial artery. Abnormal monophasic waveforms of the distal anterior tibial artery suggests possible supple by collateral vasculature. Right Peak Left Peak Systolic Velocity Systolic velocity Common femoral artery 97 cm/s 112 cm/s Profunda 111 cm/s 112 cm/s Proximal SFA 71 cm/s 89 cm/s Mid SFA 69 cm/s 53 cm/s Distal SFA 52 cm/s 44 cm/s Popliteal 56 cm/s 47 cm/s Proximal ZULEIMA 336 cm/s 10 cm/s Tibial peroneal trunk 30 cm/s 23 cm/s Proximal CATTLE C[employer] WORKER occluded occluded Distal CATTLE C[employer] WORKER occluded 30 cm/s Distal ZULEIMA 41 cm/s 16 cm/s Electronically Signed by Ramesh Sanchez MD 05/23/2019 03:48 P
== END ==
LOC: M RAD 12:18
PROVIDERS: ATTEND Physician Assistant
DX: I70.213 Atherosclerosis of native arteries of extremities with intermittent claudication, bilateral legs (principal)

== ENCOUNTER → 2019-06-24 | Outpatient (REF) ==
[~2019-06-24] MED LIST changes: +ACET-907 PO; -ALL10TAB29 PO; +APAP325T4 PO; +ATOR40TA75 PO; +BARRIER CREAM TOP; +BISA10SU27 PR; +CEFA1INJ5 IV; +CEFA2SOL IV; +CETI-24 PO; +COLC0.6T47 PO; -COLC1TAB13 PO; +DARB10SYRN IV; +ENEMENE PR; +EUCECRE8 TOP; +FEVE650S3 PR; +GABA-282 PO; +GLUC1KIT IM; +MILKSUS3 PO; +MUCI600T31 PO; +NEPR1LIQ2 PO; +PANT40TA29 PO; -PANT40TA3 PO
== END ==
PROVIDERS: ATTEND Internal Medicine
DX: Z03.818 Encounter for observation for suspected exposure to other biological agents ruled out (principal)

== ENCOUNTER → 2019-07-26 | Outpatient (CLI) | payer MEDICARE, OTHER, MEDICAID ==
[~2019-07-26] MED LIST changes: -ACET-907 PO; +ALL10TAB29 PO; -APAP325T4 PO; -ATOR40TA75 PO; -BARRIER CREAM TOP; -BISA10SU27 PR; -CEFA1INJ5 IV; -CEFA2SOL IV; -CETI-24 PO; -COLC0.6T47 PO; +COLC1TAB13 PO; -DARB10SYRN IV; -ENEMENE PR; -EUCECRE8 TOP; -FEVE650S3 PR; -GABA-282 PO; -GLUC1KIT IM; +ISOVUE-300 61% 50ML VIAL As Ordered ONE; +KETOROLAC 30 MG/ML 1ML VIAL As Ordered ONE; +LIDOCAINE 1% MDV 20ML VIAL As Ordered ONE; +MIDAZOLAM INJ 2MG/2ML VIAL (J2250 PER 1MG) As Ordered ONE; -MILKSUS3 PO; -MUCI600T31 PO; -NEPR1LIQ2 PO; +NITROGLYCERIN IN D5W 25MG/250ML (100MCG/ML) As Ordered ONE; -PANT40TA29 PO; +PANT40TA3 PO; +fentaNYL 100 MCG/2 ML INJECTION (J3010) As Ordered ONE; +hydrALAZINE 20MG/ML 1ML VIAL (J0360 PER 20MG) As Ordered ONE
--- NOTE | 2019-07-26 14:48 | ROOPDOC ---
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 PROCEDURE: 1. Ultrasound-guided access left common femoral artery 2. Aortoiliofemoral arteriogram with selection of right common femoral artery & right superficial femoral artery and a right lower extremity runoff was performed 3. Angioplasty right popliteal artery with 4 x 200 [place] balloon 4. Cross chronic total occlusion right posterior tibial artery and angioplasty with 2.5 x 220 [place] balloon and 3 x 220 Leonard balloon 5. Cross chronic total occlusion right peroneal artery and angioplasty with 2.5 x 220 and 3 x 220 [place] balloon 6. Attempt to cross occlusion at the origin of the anterior tibial artery, aborted 7. Completion arteriograms 8. Mynx closure left common femoral artery SURGEON: Lindsey Marcos MD ANESTHESIA: Local anesthesia 6 mL lidocaine. No sedation was used for this procedure. We did administer heparin 5000 units through his IV, hydralazine 10 mg through his IV, and also nitroglycerin 100 g through the sheath into the right lower extremity. 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 He has had tibial intervention in the past with Dr. Blank, and both times the patient coded at the end of the procedure. There was concern it may be related to prota mine administration versus sedation, but the exact etiology was unclear. The patient had been thoroughly worked up by a slip sheeter and neurologist who both felt it was safe to proceed with endovascular procedures when needed, and in the recent past we have since done a right lower extremity and a left lower extremity arteriogram with no sedation and the patient has tolerated it well with no cardiopulmonary or mental status abnormalities. Risks benefits and alternatives were explained to the patient and his and they are agreeable to proceed. Informed consent was obtained. INTERPRETATION: 1. The aortoiliofemoral segments are widely patent. On the right, we have a widely patent common femoral artery with good runoff through the profunda and the SFA. The popliteal artery has a proximal stenosis of 30-40% and a mid distal stenosis of 60%, both heavy plaque. Distal to this, there is significant chronic recurrent tibial disease. There is little flow through the 3 tibial vessels, with some collateral flow leading down to the foot. Heavy plaque is noted throughout. 2. After angioplasty of the posterior tibial artery, there was significant improvement in flow. The vessel is patent from the origin to the foot, with no dissection, extravasation, or embolization noted. 3. After crossing chronic total occlusion in the right peroneal artery, we were able to successfully angioplasty with good flow to the distal foot. No embolization extravasation or dissection were noted. However, plaque from the distal tibioperoneal trunk was pushed over to the origin of the right posterior tibial artery during the angioplasty of the peroneal artery. Therefore, to improve flow into the posterior tibial artery, we performed angioplasty again with a smaller balloon across the origin and then had inflow through both vessels, although with such significant plaque at the distal tibioperoneal trunk, it is unclear how long this will remain patent. 4. Angioplasty of the tibioperoneal trunk and the peroneal and posterior tibial arteries resulted and soft plaque remodeling near the origin of the anterior tibial artery. Despite our best efforts, we then could not cross into the origin of the anterior tibial artery to angioplasty the vessel. We spent about 20 minutes trying, and then this was aborted. 5. Final imaging after angioplasty and administration of 100 g of nitroglycerin for vasodilation had 23 vessel runoff with rapid in-line flow from the popliteal to the distal foot. The anterior tibial artery fills retrograde from collaterals from the peroneal artery, and also has brisk runoff through these collaterals into the dorsal pedis artery. REPORT OF PROCEDURE: The patient was brought to the angiographic suite in stable condition and placed supine on the fluoroscopic table. His bilateral groins were prepped and draped in a sterile fashion. A timeout was performed. Local anesthesia was ministered skin and subcutaneous tissue over the left groin. A microneedle was used to access the left common femoral artery under ultrasound guidance. A wire was passed through this access under fluoroscopic guidance and the needle was removed. A 4 [place] sheath was placed and flushed with saline. We advanced an Omni flush catheter over the wire into the distal aorta. An aortoiliofemoral arteriogram was performed, please interpretation above. We then went up and over the bifurcation with the Glidewire and Omni flush catheter and selected the right common femoral artery. Arteriograms of the right lower extremity were performed, please interpretation above. We then utilized a Glidewire to select the SFA and advanced the Omni flush catheter into the superficial femoral artery. Runoff of the right lower extremity was performed. We then advanced a Glidewire into the popliteal artery and exchanged the sheath for a 65 cm destination 6 [place] sheath and flushed the sheath with saline. We advanced a Glidewire cross the popliteal artery stenoses and then a 4 x 200 [place] balloon was used to angioplasty the popliteal artery for three-minute inflations. Following this, there was still some irregularity in the plaque with residual stenosis, and a second and a third three-minute angioplasty were performed. Following this, there was marked improvement in flow through the popliteal artery, but it was certainly still not perfect, however I did not feel it warranted a risky popliteal artery stent. No extravasation noted. Residual stenosis less than 30%. We then exchange the wire for an O18 Glidewire drainage and selected the posterior tibial artery. Eventually, we were able to cross thro ugh the occlusion to the distal foot. We angioplasty the length of the vessel with a 2.5 x 220 [place] balloon for multiple three-minute inflations. Following this, there was dramatic we improve flow with rapid outflow to the foot. We then selected the peroneal artery. To go moment to cross through to the ankle through the artery, but then we were able to successfully angioplasty with a 2.5 x 220 [place] balloon. Following this, there was marked two-vessel runoff, but still some spongy plaque at the origin of both vessels at the distal tibioperoneal trunk. We then attempted to access the anterior tibial artery. Unfortunately, some of the plaque in the tibioperoneal trunk made accessing the anterior tibial artery extremely difficult. We tried for about 20 minutes, but eventually we aborted this aspect of the procedure as we could not cross into the vessel after trying multiple wires and catheters. We then turned our attention back to the posterior tibial artery. We navigated back into the vessel and a 3 x 220 [place] balloon was used to angioplasty the proximal aspect of the vessel. We then crossed all the way into the plantar vessel the foot and angioplastied again with a 2.5 x 220 [place] balloon to try to give the best outflow possible to the foot for healing of the wounds. We then noted the spongy plaque at the distal tip peroneal trunk had partially occluded the origin of the peroneal artery and we again navigated into this vessel and angioplastied a second time with a 2.5 x 220 [place] balloon. Unfortunately, the spongy plaque is still at the origin of both vessels, but there is good rapid flow through both the peroneal and the posterior tibial artery with rapid outflow to the foot and collateralization at the ankle to the distal anterior tibial artery with retrograde flow and antegrade flow in the dorsal pedis artery after 100 g of nitroglycerin was given through the sheath. Although this was not perfect, it was certainly a marked improvement from no tibial flow into the foot at case origin. We now had rapid two-vessel in-line flow and one-vessel collateral flow. This concluded the procedure. We exchanged the sheath over wire for short 6 [place] sheath and deployed Mynx closure device in the left common femoral artery. Pressure was held and good hemostasis was achieved. The patient was then taken to recovery in stable condition. He tolerated the procedure well. ESTIMATED BLOOD LOSS: Approximately 4 mL. COMPLICATIONS: None. PLAN: Our plan will be to see the patient back to check his groin access site and his perfusion next week. I did discuss with him today that another option might be to try a distal bypass, possibly to the posterior tibial artery, but is vessel is small and disease and I'm not sure it would be successful. I just feel that we are hitting the point of diminishing returns with tibial angioplasty, and he keeps getting recurrent wounds and foot injury but eventually may result in limb loss. The patient is not eager to undergo an arduous vascular surgery. He has had multiple TIAs and strokes, and has significant comorbidities, but despite this says he is feeling better now than he has a long time and doesn't want a setback from a possible poor outcome from surgery. I think this is reasonable. We will hold off for now and see how he does with angioplasty alone. We can always revisit this at another time. Okay to resume Plavix tomorrow. Okay to resume home medications and diet. We appreciate the opportunity to participate in the care of this patient. LINDSEY MARCOS MD Jul 26, 2019 14:48
[2019-07-26 17:26] VITALS: BP 180/77
== END ==
LOC: M IRPRO 11:09
PROVIDERS: ATTEND Physician Assistant
DX: I70.235 Atherosclerosis of native arteries of right leg with ulceration of other part of foot (principal); I70.92 Chronic total occlusion of artery of the extremities
CPT/HCPCS: 37224; 37228; 37232; 75710; C1725; C1729; C1760; C1769; C1887; C1894; J0360; J1644; Q9967

== ENCOUNTER → 2019-07-29 | Outpatient (REF) | payer MEDICARE, OTHER, MEDICAID ==
[~2019-07-29] MED LIST changes: -ISOVUE-300 61% 50ML VIAL As Ordered ONE; -KETOROLAC 30 MG/ML 1ML VIAL As Ordered ONE; -LIDOCAINE 1% MDV 20ML VIAL As Ordered ONE; -MIDAZOLAM INJ 2MG/2ML VIAL (J2250 PER 1MG) As Ordered ONE; -NITROGLYCERIN IN D5W 25MG/250ML (100MCG/ML) As Ordered ONE; -fentaNYL 100 MCG/2 ML INJECTION (J3010) As Ordered ONE; -hydrALAZINE 20MG/ML 1ML VIAL (J0360 PER 20MG) As Ordered ONE
== END ==
PROVIDERS: ATTEND Internal Medicine
DX: R56.9 Unspecified convulsions (principal)

== ENCOUNTER → 2019-08-06 | Outpatient (REF) | payer MEDICARE, OTHER, MEDICAID | LOC: M LAB REF 12:36 | PROVIDERS: ATTEND Physician Assistant | DX: L97.514 Non-pressure chronic ulcer of other part of right foot with necrosis of bone (principal); I96 Gangrene, not elsewhere classified ==

== ENCOUNTER → 2019-08-23 | Outpatient (CLI) | payer MEDICARE, OTHER, MEDICAID ==
[~2019-08-23] MED LIST changes: +ACET-907 PO; -ALL10TAB29 PO; +APAP325T4 PO; +ATOR40TA75 PO; +BARRIER CREAM TOP; +BISA10SU27 PR; +CEFA1INJ5 IV; +CEFA2SOL IV; +CETI-24 PO; +DARB10SYRN IV; +ENEMENE PR; +EUCECRE8 TOP; +FEVE650S3 PR; +GABA-843 PO; +GLUC1KIT IM; +MILKSUS3 PO; +MUCI600T31 PO; +NEPR1LIQ2 PO; +PANT40TA29 PO; -PANT40TA3 PO
--- NOTE | 2019-08-23 12:07 | REP ---
REASON FOR EXAM: Soft tissue ulcer. RIGHT: Ankle-brachial index was obtainable both right and left side. 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 PHASICITY HOSIERY LOOPER 144.9 cm/s Triphasic Profunda 161.0 cm/s Biphasic SFA proximal 89.8 cm/s Biphasic SFA mid 90.3 cm/s Biphasic SFA distal 86.7 cm/s Triphasic Popliteal 138.3 cm/s Triphasic [place] proximal 369.1-87.1 cm/s Monophasic Tibioperoneal trunk 158.7 cm/s Monophasic PULPER OPERATOR proximal 234.0-121.7 cm/s Monophasic PULPER OPERATOR distal 109.4 cm/s Monophasic [place] distal 24.9 cm/s Monophasic LEFT: 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 PHASICITY HOSIERY LOOPER 123.1 cm/s Triphasic Profunda 118.3 cm/s Biphasic SFA proximal 94.5 cm/s Biphasic SFA mid 56.2 cm/s Triphasic SFA distal 25.5 cm/s Triphasic Popliteal 22.3 cm/s Monophasic [place] proximal 42.4 cm/s Monophasic Tibioperoneal trunk Occluded PULPER OPERATOR proximal 39.6 cm/s Monophasic PULPER OPERATOR distal 45.4 cm/s Monophasic [place] distal 19.2 cm/s Monophasic Heavily calcified vessels are seen on the right with multiple varying degrees of stenosis, particularly in the anterior and posterior tibial arteries. Heavily calcified vessels are seen on the left. Electronically Signed by Shon Arthur DO 08/23/2019 04:59 P
== END ==
LOC: M RAD 09:42
PROVIDERS: ATTEND Physician Assistant
DX: I70.213 Atherosclerosis of native arteries of extremities with intermittent claudication, bilateral legs (principal); L97.518 Non-pressure chronic ulcer of other part of right foot with other specified severity

== ENCOUNTER → 2019-08-28 | Outpatient (CLI) | payer MEDICARE, OTHER, MEDICAID ==
[~2019-08-28] MED LIST changes: +ISOVUE-300 61% 50ML VIAL As Ordered ONE; +LIDOCAINE 1% MDV 20ML VIAL As Ordered ONE; +MIDAZOLAM INJ 2MG/2ML VIAL (J2250 PER 1MG) As Ordered ONE; +fentaNYL 100 MCG/2 ML INJECTION (J3010) As Ordered ONE
[2019-08-28 09:44] LABS: HEMATOCRIT 35.6 % (42.0-52.0); HEMOGLOBIN 10.7 g/dl (13.5-17.5); MEAN CORPUSCULAR HEMOGLOBIN 30.2 pg (27.0-33.0); MEAN CORPUSCULAR HGB CONC 30.1 g/dl (32.0-36.5); MEAN CORPUSCULAR VOLUME 100.6 fl (80.0-96.0); PLATELET COUNT, AUTOMATED 113 10^3/uL (150-450); RED BLOOD COUNT 3.54 10^6/uL (4.30-6.10); WHITE BLOOD COUNT 5.6 10^3/uL (4.0-10.0)
[2019-08-28 10:04] LABS: CALCIUM LEVEL 8.9 MG/DL (8.8-10.2); CREATININE FOR GFR 4.25 MG/DL (0.70-1.30); GLOMERULAR FILTRATION RATE 14.8 (>42); POTASSIUM SERUM 4.6 MEQ/L (3.5-5.1)
--- NOTE | 2019-08-28 11:19 | ROOPDOC ---
[facility] Report Of Operation Report of Operation DATE OF PROCEDURE: 08/28/19 PREPROCEDURE DIAGNOSES: Atherosclerosis of the [place]alton arteries with nonhealing wound left foot POSTPROCEDURE DIAGNOSES: Same PROCEDURE: 1. Ultrasound-guided access right common femoral artery 2. Aortoiliofemoral arteriogram 3. Selection left common femoral artery and SFA with left lower extremity arteriogram 4. Cross chronic total occlusion left peroneal artery and arteriogram from selection of the popliteal artery and the distal peroneal artery 5. Angioplasty left peroneal artery with 2.5 x 220 [place] balloon and 3 x 220 [place] balloon 6. Angioplasty left tibioperoneal trunk and popliteal artery with 3 x 220 [place] balloon and 4 x 100 [place] balloon 7. Attempt to cross chronic total occlusion to left posterior tibial artery and anterior tibial artery, aborted 8. Completion arteriograms 9. Mynx closure right common femoral artery SURGEON: Lindsey Marcos MD ANESTHESIA: Local anesthesia 6 mL lidocaine. Conscious sedation was not administered for this patient on this procedure. In the past, with a different provider, the patient has had cardiac arrest 2 times with his endovascular procedures. We are not sure if this was related to the sedation or the use of protamine, we have successfully been able to perform endovascular procedures on this patient today and in the past without sedation. He does very well with local anesthesia only. He did receive 5000 units of heparin IV for the procedure. CONTRAST: 50 mL Isovue-300 INDICATION FOR PROCEDURE: This a very pleasant 69-year-old patient with severe popliteal and tibial atherosclerosis of the nondalton arteries and nonhealing wounds of the bilateral feet, worsening on the left foot. He underwent rubia scularization on the left several months ago, but has had restenosis and worsening of his wound. Risks benefits and alternatives to and arteriogram and potential intervention were explained to the patient and he is agreeable to proceed. Informed consent was obtained. INTERPRETATION: 1. Although calcified, the aorta iliac segments are widely patent. There is no obstruction of flow through the common iliac arteries, hypogastric arteries, or external iliac arteries bilaterally. 2. The left common femoral artery is widely patent with good runoff into a widely patent and profunda artery and superficial femoral artery. The stent at the distal superficial femoral artery proximal popliteal artery is widely patent. The popliteal artery distal to the stent is initially patent but then tapers down at the mid knee and occludes in the mid distal portion of the vessel, and does not reconstitute. His tibioperoneal trunk is occluded. There is a short segment of anterior tibial visible centimeter from its origin, but otherwise does not reconstitute. There is a short segment of peroneal artery that fills her collaterals, but otherwise does not reconstitute. There is a short segment of distal posterior tibial artery that fills from collateral circulation, but otherwise does not reconstitute. Overall, the existing tibial flow is very poor in the left lower extremity. 3. After crossing the chronic total occlusion of the peroneal artery, and angioplasty multiple times, the vessel was ectatic but patent to the ankle with improved collateral circulation to the distal dorsal pedis artery and posterior tibial artery. No dissection, embolization, or extravasation were noted. 4. After multiple angioplasties of the popliteal artery and tibioperoneal trunk, there is a marked improvement in flow. Initially there was a small dissection at the distal popliteal artery towards the origin of the tibioperoneal trunk, but r epeat angioplasty help to solve this and created improve flow through the vessel. Although the vessel remained ectatic, there was rapid widely patent flow through the SFA into the popliteal artery, into the peroneal artery, to the foot. No extravasation or embolization were noted. 5. After attempts to gain access to the anterior tibial and posterior tibial arteries, we were unsuccessful and this was aborted but imaging confirmed that there was no extravasation or vascular injury from our attempts. Flow remained patent through the peroneal artery after revascularization. REPORT OF OPERATION: The patient was brought to the angiographic suite in stable condition. His bilateral groins were prepped and draped in sterile fashion. A timeout was performed. Local anesthesia was administered to the skin and subcutaneous tissue in the right groin and a microneedle was used to access the right common femoral artery under ultrasound guidance. Wire was passed through this access and the needle was removed and a 4 [place] sheath was placed and flushed with saline. A Glidewire and flushing catheter were advanced into the distal aorta and aortoiliofemoral arteriogram was performed. Please see interpretation above. We would happen over the bifurcation with a Glidewire in the catheter and selected the left common femoral artery and superficial femoral artery. Left lower extremity arteriograms were performed. We advanced a Glidewire under fluoroscopic guidance to the distal popliteal artery. We then exchange the sheath for a 6 [place] 90 cm destination sheath over the wire using a Seldinger technique. The sheath was flushed with saline. We then took additio nal images of the left tibial vessels from the popliteal selection. With some effort, we were able to navigate and all when a wire through the occlusion at the popliteal artery, through the tibioperoneal trunk and into the distal peroneal vessel. We confirmed we were in the true lumen with a quick contrast injection in the peroneal artery distally. Following this, we didn't angioplasty along the length of the vessel with a 2.5 x 220 [place] balloon, three-minute inflations were performed. We then exchange the balloon for a 4 x 100 balloon to angioplasty the popliteal artery and the proximal tibioperoneal trunk. Three- minute inflations was performed. A mild dissection was noted at the distal popliteal artery and proximal tibioperoneal trunk after this angioplasty, and we exchanged the balloon for a 3 x 220 [place] balloon and angioplasty to along the popliteal artery, tibioperoneal trunk and proximal peroneal artery for multiple three-minute inflations. Following this, there is widely patent flow in line from the superficial femoral artery through the peroneal artery to the foot with collateral circulation to the dorsal pedis artery and posterior tibial artery. The vessels after angioplasty were ectatic but patent. We then spent considerable time trying to find the origins of the anterior tibial artery and the posterior tibial artery. Neither were visible on arteriogram, but based on anatomical estimates, we tried to locate the origins. Unfortunately, we could not cross and either vessel despite our best efforts. Arteriograms confirmed that we had not disrupted any flow through the peroneal artery with her efforts in no extravasation or embolization were noted. This concluded the procedure. We exchange the wire for an O35 wire and exchange the sheath for a short 6 [place] sheath over the wire using a Seldinger technique. The sheath was flushed with saline. A Mynx closure device was deployed in the right common femoral artery with good hemostasis. Pressure was held for 10 minutes and sterile dressings were applied. The patient was taken to recovery in stable condition. He tolerated the procedure well without sedation. ESTIMATED BLOOD LOSS: Approximately 4 mL. COMPLICATIONS: None. PLAN: Okay to resume home diet and medications. Wound care per the wound care center. High-protein diet and high glucose control to help with wound healing. Follow up in 1 week to check groin access site. I discussed with his that much like what we found on his last arteriogram with the right leg, I think we are starting to hit the point of diminishing returns with repeat intervention. However, if our efforts are providing him limb salvage and some improvement in his wound healing, I believe it is worth continuing to try to maintain patency through at least one of his 3 tibials if it prevents amputation. She and the patient both feel that any efforts to provide them salvage are worthwhile. We appreciate the opportunity to participate in the care of this patient. LINDSEY MARCOS MD Aug 28, 2019 11:19
[2019-08-28 14:30] VITALS: BP 183/81
== END ==
LOC: M IRPRO 08:23
PROVIDERS: ATTEND Surgery Vascular Surgery
DX: I70.245 Atherosclerosis of native arteries of left leg with ulceration of other part of foot (principal); I70.92 Chronic total occlusion of artery of the extremities
CPT/HCPCS: 36415; 37228; 37232; 75710; 80048; 85027; C1725; C1729; C1760; C1769; C1887; C1894; J1644; J2250; J3010; Q9967

== ENCOUNTER → 2019-09-15 | Outpatient (REF) | payer MEDICARE, OTHER, MEDICAID ==
[~2019-09-15] MED LIST changes: -ISOVUE-300 61% 50ML VIAL As Ordered ONE; -LIDOCAINE 1% MDV 20ML VIAL As Ordered ONE; -MIDAZOLAM INJ 2MG/2ML VIAL (J2250 PER 1MG) As Ordered ONE; -fentaNYL 100 MCG/2 ML INJECTION (J3010) As Ordered ONE
== END ==
PROVIDERS: ATTEND Physician Assistant
DX: R06.02 Shortness of breath (principal)

== ENCOUNTER → 2019-09-17 | Outpatient (CLI) | payer MEDICARE, OTHER, MEDICAID ==
--- NOTE | 2019-10-29 11:54 | REP ---
PORTABLE CHEST Delay in reporting results from hospital computer system malfunction from malware / ransomware. TECHNIQUE: Study consists of semi-upright AP and lateral views for cough. COMPARISON: Portable AP chest of 04/19/2019 and PA and lateral chest dated 01/04/2018. Current study is performed AP with the patient semi-upright. FINDINGS: The lung pena are clear, except for mild underaeration of the lung bases on the lateral view, likely secondary to patient positioning. Cardiac size is normal. There are sternotomy wires, unchanged. The trever, mediastinum, and skeletal structures are unremarkable. IMPRESSION: There are no acute cardiopulmonary findings except for underaeration of the lung bases on the lateral view, likely secondary to patient positioning. MTDD
== END ==
LOC: M LAB 11:25
PROVIDERS: ATTEND Physician Assistant
DX: R50.9 Fever, unspecified (principal); R05 Cough

== ENCOUNTER → 2019-09-17 | Outpatient (REF) | payer MEDICARE, OTHER, MEDICAID ==
[2019-11-26 08:53] LABS: HEMATOCRIT 38.1 % (42.0-52.0); HEMOGLOBIN 11.7 g/dl (13.5-17.5); MEAN CORPUSCULAR HEMOGLOBIN 29.5 pg (27.0-33.0); MEAN CORPUSCULAR HGB CONC 30.7 g/dl (32.0-36.5); MEAN CORPUSCULAR VOLUME 96.2 fl (80.0-96.0); PLATELET COUNT, AUTOMATED 211 10^3/uL (150-450); RED BLOOD COUNT 3.96 10^6/uL (4.30-6.10); WHITE BLOOD COUNT 6.3 10^3/uL (4.0-10.0)
[2019-12-14 07:54] LABS: C REACTIVE PROTEIN QUANTITATIV 19.5 MG/DL (0.00-0.30); CREATININE FOR GFR 5.35 MG/DL (0.70-1.30); GLOMERULAR FILTRATION RATE 11.4 (>42); POTASSIUM SERUM 3.6 MEQ/L (3.5-5.1)
== END ==
LOC: M LAB REF 12:46
PROVIDERS: ATTEND Physician Assistant
DX: I70.245 Atherosclerosis of native arteries of left leg with ulceration of other part of foot (principal); E11.621 Type 2 diabetes mellitus with foot ulcer; L97.524 Non-pressure chronic ulcer of other part of left foot with necrosis of bone

== ENCOUNTER 2019-09-18 21:40 | Inpatient (IN) | payer MEDICARE, OTHER, MEDICAID ==
[~2019-09-18 21:40] MED LIST changes: -ACET-907 PO; -APAP325T4 PO; -ATOR40TA75 PO; -BARRIER CREAM TOP; -BISA10SU27 PR; +CARVedilol 12.5 MG TAB As Ordered ONE; -CEFA1INJ5 IV; -CEFA2SOL IV; -DARB10SYRN IV; -ENEMENE PR; -EUCECRE8 TOP; -FEVE650S3 PR; -GABA-843 PO; -GLUC1KIT IM; -MILKSUS3 PO; -MUCI600T31 PO; -NEPR1LIQ2 PO; +VANCOMYCIN 1000MG/20ML VIAL As Ordered ONE; +hydrALAZINE 20MG/ML 1ML VIAL (J0360 PER 20MG) As Ordered ONE
[2019-09-19] MEDS ORDERED: guaiFENesin ER 600 MG TAB As Ordered ONE ×2 (08:27→20:55)
[2019-09-19] MEDS ORDERED: GABAPENTIN 100 MG CAP As Ordered ONE ×2 (08:28→20:55)
[2019-09-19] MEDS ORDERED: CLOPIDOGREL 75 MG TAB As Ordered ONE (08:28)
[2019-09-19] MEDS ORDERED: (RENVELA) SEVELAMER **CARBONate** 800 MG TAB As Ordered ONE ×2 (08:28→12:00)
[2019-09-19] MEDS ORDERED: levETIRAcetam 250MG TABLET (KEPPRA) As Ordered ONE ×2 (08:28→20:55)
[2019-09-19] MEDS ORDERED: PANTOPRAZOLE 40MG TAB (PROTONIX) As Ordered ONE (08:29)
[2019-09-19] MEDS ORDERED: CARVedilol 12.5 MG TAB As Ordered ONE ×2 (08:29→20:56)
[2019-09-19] MEDS ORDERED: NEPHRO-VIT TAB (NEPHROCAPS) ONE (09:00)
[2019-09-19] MEDS ORDERED: DOCUSATE SODIUM 100 MG CAP As Ordered ONE (20:54)
[2019-09-19] MEDS ORDERED: ATORVASTATIN 20 MG TAB As Ordered ONE (20:54)
[2019-09-19] MEDS ORDERED: ROSUVASTATIN 10 MG TAB (CRESTOR) As Ordered ONE (20:56)
[2019-09-19] MEDS ORDERED: VANCOMYCIN 1000MG/20ML VIAL As Ordered ONE (20:56)
[2019-09-20] MEDS ORDERED: ACETAMINOPHEN TAB 650MG DOSE (2X325MG) As Ordered ONE (00:12)
[2019-09-20] MEDS ORDERED: CLOPIDOGREL 75 MG TAB ONE (09:22)
[2019-09-20] MEDS ORDERED: CARVedilol 6.25 MG TAB ONE (09:22)
[2019-09-20] MEDS ORDERED: guaiFENesin ER 600 MG TAB ONE ×2 (09:22→22:16)
[2019-09-20] MEDS ORDERED: levETIRAcetam 250MG TABLET (KEPPRA) ONE ×2 (09:22→22:16)
[2019-09-20] MEDS ORDERED: PANTOPRAZOLE 40MG TAB (PROTONIX) ONE (09:22)
[2019-09-20] MEDS ORDERED: GABAPENTIN 100 MG CAP ONE ×2 (09:22→22:16)
[2019-09-20] MEDS ORDERED: (RENVELA) SEVELAMER **CARBONate** 800 MG TAB ONE (09:22)
[2019-09-20] MEDS ORDERED: ACETAMINOPHEN 325 MG TAB ONE (14:25)
[2019-09-20] MEDS ORDERED: CARVedilol 12.5 MG TAB ONE (22:16)
[2019-09-20] MEDS ORDERED: ROSUVASTATIN 10 MG TAB (CRESTOR) ONE (22:16)
[2019-09-20] MEDS ORDERED: ATORVASTATIN 20 MG TAB ONE (22:16)
[2019-09-21] MEDS ORDERED: levETIRAcetam 250MG TABLET (KEPPRA) ONE ×2 (10:05→20:08)
[2019-09-21] MEDS ORDERED: guaiFENesin ER 600 MG TAB ONE ×2 (10:05→20:08)
[2019-09-21] MEDS ORDERED: CARVedilol 12.5 MG TAB ONE ×2 (10:05→20:08)
[2019-09-21] MEDS ORDERED: GABAPENTIN 300 MG CAP ONE ×2 (10:05→20:08)
[2019-09-21] MEDS ORDERED: PANTOPRAZOLE 40MG TAB (PROTONIX) ONE (10:05)
[2019-09-21] MEDS ORDERED: HEPARIN SOD (PORCINE) 5000UNITS/ML 1ML VIAL/SYRINGE ONE ×2 (10:05→20:08)
[2019-09-21] MEDS ORDERED: CLOPIDOGREL 75 MG TAB ONE (10:05)
[2019-09-21] MEDS ORDERED: ATORVASTATIN 20 MG TAB ONE (20:08)
[2019-09-21] MEDS ORDERED: ROSUVASTATIN 10 MG TAB (CRESTOR) ONE (20:08)
[2019-09-21] MEDS ORDERED: CARVedilol 6.25 MG TAB ONE (20:08)
[2019-09-21] MEDS ORDERED: VANCOMYCIN 1000MG/20ML VIAL ONE (20:08)
[2019-09-21] MEDS ORDERED: ACETAMINOPHEN TAB 650MG DOSE (2X325MG) ONE (20:32)
[2019-09-22] MEDS ORDERED: guaiFENesin ER 600 MG TAB ONE ×2 (08:08→09:33)
[2019-09-22] MEDS ORDERED: GABAPENTIN 300 MG CAP ONE ×2 (08:08→09:33)
[2019-09-22] MEDS ORDERED: CLOPIDOGREL 75 MG TAB ONE (08:08)
[2019-09-22] MEDS ORDERED: PANTOPRAZOLE 40MG TAB (PROTONIX) ONE (08:08)
[2019-09-22] MEDS ORDERED: (RENVELA) SEVELAMER **CARBONate** 800 MG TAB ONE ×2 (08:08→13:26)
[2019-09-22] MEDS ORDERED: HEPARIN SOD (PORCINE) 5000UNITS/ML 1ML VIAL/SYRINGE ONE ×2 (08:08→09:33)
[2019-09-22] MEDS ORDERED: levETIRAcetam 250MG TABLET (KEPPRA) ONE ×2 (08:08→09:33)
[2019-09-22] MEDS ORDERED: CARVedilol 12.5 MG TAB ONE ×2 (08:16→09:33)
[2019-09-22] MEDS ORDERED: ROSUVASTATIN 10 MG TAB (CRESTOR) ONE (09:33)
[2019-09-22] MEDS ORDERED: ATORVASTATIN 20 MG TAB ONE (09:33)
[2019-09-23] MEDS ORDERED: guaiFENesin ER 600 MG TAB ONE ×2 (08:33→20:52)
[2019-09-23] MEDS ORDERED: levETIRAcetam 250MG TABLET (KEPPRA) ONE ×2 (08:33→20:52)
[2019-09-23] MEDS ORDERED: CARVedilol 12.5 MG TAB ONE ×2 (08:33→20:52)
[2019-09-23] MEDS ORDERED: PANTOPRAZOLE 40MG TAB (PROTONIX) ONE (08:33)
[2019-09-23] MEDS ORDERED: GABAPENTIN 300 MG CAP ONE ×2 (08:33→20:52)
[2019-09-23] MEDS ORDERED: NEPHRO-VIT TAB (NEPHROCAPS) ONE (13:00)
[2019-09-23] MEDS ORDERED: MIDAZOLAM INJ 2MG/2ML VIAL (J2250 PER 1MG) As Ordered ONE (15:10)
[2019-09-23] MEDS ORDERED: ATORVASTATIN 20 MG TAB ONE (20:52)
[2019-09-24] MEDS ORDERED: HEPARIN SOD (PORCINE) 5000UNITS/ML 1ML VIAL/SYRINGE ONE ×2 (00:27→13:18)
[2019-09-24] MEDS ORDERED: ceFAZolin 2 GM/D5W 50 ML IV BAG (J0690 PER 500MG) ONE (00:27)
[2019-09-24] MEDS ORDERED: VANCOMYCIN 750MG/25ML VIAL ONE (13:18)
[2019-09-24] MEDS ORDERED: CLOPIDOGREL 75 MG TAB ONE (13:18)
[2019-09-24] MEDS ORDERED: (RENVELA) SEVELAMER **CARBONate** 800 MG TAB ONE (13:18)
[2019-09-24] MEDS ORDERED: levETIRAcetam 250MG TABLET (KEPPRA) ONE (13:18)
[2019-09-24] MEDS ORDERED: GABAPENTIN 300 MG CAP ONE (13:18)
[2019-09-24] MEDS ORDERED: guaiFENesin ER 600 MG TAB ONE (13:18)
[2019-09-24] MEDS ORDERED: PANTOPRAZOLE 40MG TAB (PROTONIX) ONE (13:18)
[2019-09-24] MEDS ORDERED: CARVedilol 12.5 MG TAB ONE (13:18)
[2019-09-24] MEDS ORDERED: SLF 3 ML SYR IV PRN (15:45)
[2019-09-24] MEDS ORDERED: ALBUTEROL 90 MCG/ACT 8GM HFA INHALER INH PRN (15:45)
[2019-09-24] MEDS ORDERED: ACETAMINOPHEN TAB 650MG DOSE (2X325MG) PO PRN (15:45)
[2019-09-24] MEDS ORDERED: hydrALAZINE 20MG/ML 1ML VIAL (J0360 PER 20MG) IV PRN (15:45)
[2019-09-24] MEDS ORDERED: **VANCO AFTER HD** MISC XX SCH (16:00)
[2019-09-24] MEDS ORDERED: (RENVELA) SEVELAMER **CARBONate** 800 MG TAB As Ordered ONE (17:22)
[2019-09-24] MEDS ORDERED: VANCOMYCIN HCL 1,000 MG, VIAL MATE ADAPTER 1 EACH in D5W 250 ML IV SCH (19:00)
[2019-09-24] MEDS ORDERED: DARBEPOETIN 100 MCG/0.5 ML *DIALYSIS* SYRINGE (J0882) IV SCH (19:00)
[2019-09-24 20:00] VITALS: BP 144/65
[2019-09-24] MEDS ORDERED: GLUC1KIT IM (20:30)
[2019-09-24] MEDS ORDERED: NEPR1LIQ2 PO (20:30)
[2019-09-24] MEDS ORDERED: COLA100C5 PO (20:30)
[2019-09-24] MEDS ORDERED: EUCECRE8 TOP (20:30)
[2019-09-24] MEDS ORDERED: ENEMENE PR (20:30)
[2019-09-24] MEDS ORDERED: ACET-907 PO (20:30)
[2019-09-24] MEDS ORDERED: FEVE650S3 PR (20:30)
[2019-09-24] MEDS ORDERED: MILKSUS3 PO (20:30)
[2019-09-24] MEDS ORDERED: MUCI600T31 PO (20:30)
[2019-09-24] MEDS ORDERED: ALBU83IN INH (20:30)
[2019-09-24] MEDS ORDERED: VITA50005 PO (20:30)
[2019-09-24] MEDS ORDERED: ATOR40TA75 PO (20:30)
[2019-09-24] MEDS ORDERED: BISA10SU27 PR (20:30)
[2019-09-24] MEDS: ALBUTEROL SULFATE 2.5 MG/0.5 ML INH NEB SOLN INH SCH (20:55)
[2019-09-24] MEDS ORDERED: ceFAZolin SOD 2 GM in IV 1 EA IV SCH (21:00)
[2019-09-24] MEDS ORDERED: ATORVASTATIN 20 MG TAB PO SCH (21:00)
[2019-09-24] MEDS ORDERED: DOCUSATE SODIUM 100 MG CAP PO SCH (21:00)
[2019-09-24] MEDS ORDERED: GABAPENTIN 100 MG CAP PO SCH (21:00)
[2019-09-24] MEDS: HEPARIN SOD (PORCINE) 5000UNITS/ML 1ML VIAL/SYRINGE SQ SCH (21:45)
[2019-09-24] MEDS: guaiFENesin ER 600 MG TAB PO SCH (21:46)
[2019-09-24] MEDS: GABAPENTIN 300 MG CAP PO SCH (21:46)
[2019-09-24] MEDS: CARVedilol 12.5 MG TAB PO SCH (21:46)
[2019-09-24] MEDS: levETIRAcetam 250MG TABLET (KEPPRA) PO SCH (21:46)
[2019-09-24] MEDS: SLF 3 ML SYR IV SCH (21:49)
[2019-09-24 21:50] LABS: HEMATOCRIT 35.4 % (42.0-52.0); HEMOGLOBIN 10.6 g/dl (13.5-17.5); MEAN CORPUSCULAR HEMOGLOBIN 28.6 pg (27.0-33.0); MEAN CORPUSCULAR HGB CONC 29.9 g/dl (32.0-36.5); MEAN CORPUSCULAR VOLUME 95.7 fl (80.0-96.0); PLATELET COUNT, AUTOMATED 308 10^3/uL (150-450); WHITE BLOOD COUNT 7.8 10^3/uL (4.0-10.0)
[2019-09-25] VITALS: BP 156/69
[2019-09-25 04:00] VITALS: BP 172/78
[2019-09-25] MEDS: SLF 3 ML SYR IV SCH (05:37)
[2019-09-25 06:18] LABS: HEMATOCRIT 31.7 % (42.0-52.0); HEMOGLOBIN 9.6 g/dl (13.5-17.5); MEAN CORPUSCULAR HEMOGLOBIN 28.7 pg (27.0-33.0); MEAN CORPUSCULAR HGB CONC 30.3 g/dl (32.0-36.5); MEAN CORPUSCULAR VOLUME 94.6 fl (80.0-96.0); PLATELET COUNT, AUTOMATED 279 10^3/uL (150-450); RED BLOOD COUNT 3.35 10^6/uL (4.30-6.10); WHITE BLOOD COUNT 6.3 10^3/uL (4.0-10.0)
[2019-09-25 06:46] LABS: CALCIUM LEVEL 9.1 MG/DL (8.8-10.2); CREATININE FOR GFR 5.35 MG/DL (0.70-1.30); GLOMERULAR FILTRATION RATE 11.4 (>42); POTASSIUM SERUM 3.9 MEQ/L (3.5-5.1)
[2019-09-25 07:41] VITALS: BP 139/64
[2019-09-25] MEDS: ALBUTEROL SULFATE 2.5 MG/0.5 ML INH NEB SOLN INH SCH ×2 (08:00→12:06)
[2019-09-25] MEDS: (RENVELA) SEVELAMER **CARBONate** 800 MG TAB PO SCH ×2 (08:35→11:43)
[2019-09-25 08:36] VITALS: BP 139/64
[2019-09-25] MEDS: levETIRAcetam 250MG TABLET (KEPPRA) PO SCH (08:36)
[2019-09-25] MEDS: CARVedilol 12.5 MG TAB PO SCH (08:36)
[2019-09-25] MEDS: GABAPENTIN 300 MG CAP PO SCH (08:36)
[2019-09-25] MEDS: HEPARIN SOD (PORCINE) 5000UNITS/ML 1ML VIAL/SYRINGE SQ SCH (08:36)
[2019-09-25] MEDS: guaiFENesin ER 600 MG TAB PO SCH (08:36)
[2019-09-25 08:55] LABS: ERYTHROCYTE SEDIMENTATION RATE 106 mm/hr (0-20)
[2019-09-25] MEDS ORDERED: OCUVITE 1 TAB PO SCH (09:00)
[2019-09-25] MEDS ORDERED: CLOPIDOGREL 75 MG TAB PO SCH (09:00)
[2019-09-25] MEDS ORDERED: PANTOPRAZOLE 40MG TAB (PROTONIX) PO SCH (09:00)
[2019-09-25] MEDS ORDERED: CEFA2SOL IV (11:31)
[2019-09-25] MEDS ORDERED: GABA-843 PO (11:31)
[2019-09-25] MEDS ORDERED: DARB100SYR IV (11:31)
[2019-09-25] MEDS ORDERED: ceFAZolin SOD 3 GM in IV 1 EA IV STA (11:32)
[2019-09-25 12:00] VITALS: BP 149/69
--- NOTE | 2019-09-25 12:04 | DS.PDOC ---
Discharge Summary General Date of Admission Sep 18, 2019 at 21:41 Date of Discharge Sep, at 11:23 Attending Physician: DAREN MCCULLOUGH DO Specialist/Consultants Involve Infectious disease Nephrology General Surgery Discharge Summary PROCEDURES PERFORMED DURING STAY: Transesophageal Echocardiogram ADMITTING DIAGNOSES: 1. Gram positive bacteremia DISCHARGE DIAGNOSES: 1. MSSA bacteremia COMPLICATIONS/CHIEF COMPLAINT: Lethargic. HISTORY OF PRESENT ILLNESS and HOSPITAL COURSE: Mr. Dean is a 69 year old male from [facility] here with MSSA bacteremia. While at [facility], he was not feeling well and blood cultures were obtain. When they returned positive with gram positive cocci, he was sent to the ED. Here he was admitted and his bilateral food ulcers were cultured. The right foot grew MSSA and the left foot grew MRSA and enterococcus. He was on Vancomycin during the hospital stay to cover for the MRSA. He had a MICHELE which did not suggest endocarditis. General surgery examined the ulcers and recommended wound care and that he follows up with his podi atrist. ID recommended switching to Cefazolin for MSSA since that organism is in the blood stream. First negative blood culture was on 09/21/2019. End date will be 10/05/2019. He remains afebrile Otherwise, he did have a stiff neck on admission. CT of the neck demonstrated degenerative changes. Warm packs and increasing gabapentin from 100mg to 300mg did help with the pain. He has more range of motion in his neck. This morning, he feels well. Denies F/C, chest pain, SOB, abdominal pain, diarrhea, or dysuria. DISCHARGE MEDICATIONS: Please see below. ALLERGIES: Please see below. PHYSICAL EXAMINATION ON DISCHARGE: VITAL SIGNS: Please see below. GENERAL: Comfortable HEENT: Head normocephalic, atraumatic, EOMI, sclera clear NECK: Decreased range of motion to the right CARDIOVASCULAR EXAMINATION: Regular rate and rhythm RESPIRATORY EXAMINATION: Clear to auscultation bilaterally ABDOMINAL EXAMINATION: Soft, non-tender, normal bowel sounds EXTREMITIES: No pitting edema NEUROLOGICAL EXAMINATION: CN3-12 grossly intact PSYCHIATRIC EXAMINATION: Depressed LABORATORY DATA: Please see below. PROGNOSIS: Stable ACTIVITY: [As tolerated]. DIET: Renal diet DISPOSITION: Discharge back to [facility] DISCHARGE INSTRUCTIONS: 1. Follow up with PCP and podiatry in a week DISCHARGE CONDITION: [Stable]. TIME SPENT ON DISCHARGE: Total time spent on discharge planning, discharge summary, and medication reconciliation 50 minutes Vital Signs/I&Os Vital Signs Date Time Temp Pulse Resp B/P (MAP) Pulse Ox O2 Delivery O2 Flow Rate FiO2 09/25/19 08:36 65 139/64 09/25/19 07:41 98.3 16 98 Room Air Laboratory Data Labs 24H Laboratory Tests 2 09/25/19 05:54: Nucleated Red Blood Cells % (auto) 0.0, Erythrocyte Sedimentation Rate 106H, Anion Gap 7L, Glomerular Filtration Rate 11.4L, Calcium Level 9.1 CBC/BMP Laboratory Tests 09/25/19 05:54 Discharge Medications Scheduled Albuterol Sulf (Albuterol Sulfate) 2.5 Mg/3 Ml Vial.neb, 2.5 MG INH QID, (Reported) Amlodipine Besylate (Amlodipine Besylate) 2.5 Mg Tablet, 2.5 MG PO QHS, (Reported) Atorvastatin Calcium (Atorvastatin Calcium) 40 Mg Tablet, 40 MG PO QHS, (Reported) Carvedilol (Carvedilol) 12.5 Mg Tablet, 12.5 MG PO BID, (Reported) Cefazolin Sodium/Dextrose,Iso (Cefazolin 2 G/50 ml-Dextrose) 2 Gm/50 Ml Piggyback, 1 OMER IV ASDIRECTED Recieve at dialysis 2gm on Monday and Monday and 3gm on Monday. To be continued until 10/05/2019 Cetirizine HCl (Cetirizine HCl) 10 Mg Tablet, 10 MG PO DAILY, (Reported) Clopidogrel Bisulfate (Clopidogrel) 75 Mg Tab, 75 MG PO DAILY, (Reported) Darbepoetin (Aranesp) 100 Mcg/0.5 Ml Syringe, 100 MCG IV HD To receive at dialysis Docusate Sodium (Colace) 100 Mg Capsule, 200 MG PO QHS, (Reported) Ergocalciferol (Vitamin D2) (Vitamin D2) 50,000 Units Cap, 50,000 UNITS PO QWEEK, (Reported) WEDNESDAYS Gabapentin (Gabapentin) 300 Mg Capsule, 300 MG PO BID Guaifenesin (Mucinex) 600 Mg Tab.er.12h, 600 MG PO BID, (Reported) Lanolin Alcohol/Mo/W.pet/[place] (Eucerin Creme) 454 Gm Cream..g., 1 DOSE TOP QHS, (Reported) APPLY TO LEGS AND FEET Levetiracetam (Keppra) 250 Mg Tablet, 250 MG PO BID, (Reported) Nut.tx.imp.renal Fxn,Lac-Reduc (Nepro Carb Steady) 237 Ml Liquid, 240 ML PO QHS, (Reported) Pantoprazole Sodium (Protonix) 40 Mg Tab, 40 MG PO DAILY, (Reported) Sevelamer Carbonate (Renvela) 800 Mg Tab, 1,600 MG PO WM, (Reported) Vit B Comp No.3/Folic/C/Biotin (Radha-Haja Rx Tablet) 1 Each Tablet, 1 TAB PO DAILY, (Reported) Scheduled PRN Acetaminophen (Acetaminophen) 500 Mg Tablet, 1,000 MG PO QID PRN for PAIN, (Reported) Albuterol Sulfate (Proair Hfa) 8.5 Gm Hfa.aer.ad, 2 PUFF INH Q4H PRN for SOB/WHEEZING, (Reported) Bisacodyl (Bisacodyl) 10 Mg Supp.rect, 10 MG OR DAILY PRN for CONSTIPATION, (Reported) Glucagon,Human Recombinant (Glucagon Emergency Kit) 1 Mg Vial, 1 MG IM DAILY PRN for LOW BLOOD SUGAR, (Reported) Magnesium Hydroxide (Milk of Magnesia) 400 Mg/5 Ml Oral.susp, 10 ML PO DAILY PRN for CONSTIPATION, (Reported) Sodium Phosphate,[place]-Dibasic (Enema) 133 Ml Enema, 1 JENA OR DAILY PRN for CONSTIPATION, (Reported) Allergies Coded Allergies: aspirin (Verified Allergy, Severe, CLOSES AIRWAY, 06/15/18) DAREN MCCULLOUGH DO Sep 25, 2019 11:46
[2019-09-26 11:49] LABS: HEMATOCRIT 32.1 % (42.0-52.0); HEMOGLOBIN 9.8 g/dl (13.5-17.5); MEAN CORPUSCULAR HGB CONC 30.5 g/dl (32.0-36.5); PLATELET COUNT, AUTOMATED 273 10^3/uL (150-450); RED BLOOD COUNT 3.38 10^6/uL (4.30-6.10); WHITE BLOOD COUNT 7.3 10^3/uL (4.0-10.0)
[2019-09-28 23:18] LABS: C REACTIVE PROTEIN QUANTITATIV 8.01 MG/DL (0.00-0.30); CALCIUM LEVEL 9.4 MG/DL (8.8-10.2); CREATININE FOR GFR 8.02 MG/DL (0.70-1.30); GLOMERULAR FILTRATION RATE 7.1 (>42); POTASSIUM SERUM 4.8 MEQ/L (3.5-5.1); VANCOMYCIN RANDOM 25.7 UG/ML
[2019-09-29 23:13] LABS: HEMATOCRIT 33.4 % (42.0-52.0); HEMOGLOBIN 10.2 g/dl (13.5-17.5); MEAN CORPUSCULAR HEMOGLOBIN 29.1 pg (27.0-33.0); MEAN CORPUSCULAR VOLUME 95.4 fl (80.0-96.0); WHITE BLOOD COUNT 6.9 10^3/uL (4.0-10.0)
[2019-09-29 23:14] LABS: ERYTHROCYTE SEDIMENTATION RATE 105 mm/hr (0-20); MEAN CORPUSCULAR HGB CONC 30.5 g/dl (32.0-36.5); PLATELET COUNT, AUTOMATED 229 10^3/uL (150-450)
--- NOTE | 2019-10-17 07:53 | CR ---
DATE: 09/19/2019 HISTORY OF PRESENT ILLNESS: Mr. Dykes is a 69-year-old gentleman fpc patient from [facility] with history of end stage renal disease, hemodialysis. Initially was on peritoneal dialysis but currently has been on hemodialysis due to left upper extremity arteriovenous (AV) fistula. The patient has a graft on his left upper extremity, which has not been a problem. He has multiple diabetic foot ulcers and has been followed up by Dr. Blue. The patient has had 5 days of malaise with low-grade fever. On Monday he had a the patient of 103 and had blood cultures drawn at dialysis. He was admitted for bacteremia. Blood cultures repeated on September 17 at [facility] are positive with Staphylococcus aureus. The patient had a transthoracic echocardiogram. His reports that he has had severe neck pain for the past 2 weeks that has progressively gotten worse. He also has had difficulty walking and for the month before, he had been able to ambulate with a walker, but for 2 weeks he has slowed down with his progress. He has had increased lethargy. He follows up with Dr. Blue for wound care. He had a right great toe amputation site that had purulent discharge on last visit and had an amputation of the left 3rd toe due to dry gangrene. There was no discharge at the left foot site, but only on the right side. Patient denied any pain in his feet. REVIEW OF SYSTEMS: He denies any chest pain or shortness of breath. No palpitations. No nausea, vomiting, or diarrhea. He has a history of multiple strokes with previous history of right-sided foot drop and right-sided weakness. MEDICAL HISTORY: 1. Coronary artery disease, status post coronary artery bypass graft (CABG) 2 years ago, single vessel. He does not have a history of valve replacement. Has no hip or knee replacement. 2. Cervical degenerative disc disease with advanced spondylosis and C3-4 stenosis. 3. Multiple diabetic foot ulcers with amputations. For osteomyelitis, the right foot has amputation of 1st and 2nd toe. The left foot has amputation of all toes except the 4th. 4. End stage renal disease with history of peritoneal dialysis with peritonitis. PAST SURGICAL HISTORY: Left-sided angioplasty done by Dr. Marcos June 1999. Right-sided angioplasty done prior. ALLERGIES: ASPIRIN. MEDICATIONS: - gabapentin 100 mg by mouth twice a day - Keppra 250 mg by mouth twice a day - vancomycin 1 gram IV after dialysis - albuterol nebulizers four times a day - amlodipine 2.5 mg by mouth every night - atorvastatin 40 mg by mouth every night - Plavix 75 mg by mouth daily - Coreg 12.5 mg by mouth twice a day - pantoprazole 40 mg by mouth daily - Radha-Haja one tablet by mouth daily - rosuvastatin 10 mg by mouth every night - Renvela 800 mg two tablets with meals - Colace 200 mg by mouth every night - Mucinex 600 mg by mouth twice a day - hydralazine 10 mg IV every 6 as needed for high blood pressure IMAGING: CT head without contrast done on September 17 shows multiple infarcts. MRI of the head without contrast shows no acute infarction. No acute intracranial hemorrhage. A prior lacunar infarction of the left putamen, right external capsule, anterior putamen, left caudate, and left frontal and temporal lobes. No acute findings. Labs done on September 18: Sodium 139, potassium 3.9. chloride 99, bicarbonate 28, glucose 122, BUN 66, creatinine 8.73, calcium 9. Alkaline phosphatase 88, ALT 20, AST 16, bilirubin 0.4, phosphorus 5.2. White count 5.7, hemoglobin 10.1, hematocrit 32.1, platelets 205. Blood culture positive for Staphylococcus aureus. PHYSICAL EXAMINATION: Temperature 98, pulse 78, respirations 18, oxygen saturation 95% on room air, blood pressure 133/62. HEART: Normal S1, S2 with an irregular beat, holosystolic murmur, 3/6, diffusely heart. LUNGS: Clear. No wheezes, rales, or rhonchi. ABDOMEN: Soft, nontender. No hepatosplenomegaly. BACK: No costovertebral angle (CVA) or lumbosacral tenderness. NECK: Severe neck stiffness with tenderness along C2-3. Difficulty with range of motion of the neck with severe pain. OROPHARYNX: Dry. EXTREMITIES: No clubbing, cyanosis, or edema. Right foot with 1st and 2nd toe amputation with an open incision measuring 0.5 cm with purulent drainage. Culture was obtained from the right foot amputation site. Left foot has only a 4th toe. Third toe amputation site has a black eschar. No infection noted at that site. Portable chest x-ray was negative. EKG showed sinus rhythm with nonspecific T-wave abnormalities. CT neck without contrast done on 09/18/2019: Advanced degenerative spondylosis with multilevel central spinal canal stenosis and small left pleural effusion. CT head done on 09/18/2019: Atrophy and chronic white matter changes. No acute abnormality. IMPRESSION: This is a 69-year-old gentleman with a history of end stage renal disease, peripheral vascular disease, multiple foot ulcers with bacteremia, who was admitted with bacteremia due to Staphylococcus aureus. Patient had an abscess of his right big toe and had recent incision and drainage (I and D), which could have caused the bacteremia. The patient also, of note, has had neck pain for the past 2 weeks, which has increased drastically. CT of the neck without contrast did not show any evidence of epidural abscess or discitis, but still that is a concern. He has a very loud holosystolic murmur. No previous history of valve replacement, but a differential diagnosis would also include endocarditis with primary site of infection being the right big toe. PLAN: Wound Gram stain and culture from the right big toe was obtained. Complete blood count (CBC), comprehensive metabolic profile (CMP), erythrocyte sedimentation rate (ESR), and C-reactive protein (CRP) are ordered for tomorrow. Repeat blood cultures, two sets, tomorrow. Consult cardiology to schedule a transesophageal echocardiogram (MICHELE). The patient's was at the bedside and has agreed to have a MICHELE done to rule out endocarditis. Suggest for neck pain increase gabapentin to 300 mg by mouth twice a day. If neck pain does not improve with a heating pelvic inflammatory disease and gabapentin, consider obtaining MRI with contrast to rule out discitis or epidural abscess. Continue with IV vancomycin until results of cultures are available. If this is methicillin-sensitive Staphylococcus aureus (MSSA), suggest switching to cefazolin 2 grams IV at bedtime. MTDD
--- NOTE | 2019-10-18 13:14 | T-ECHO ---
REFERRING PHYSICIAN: Dr. Rivera INDICATION: Bacteremia. PROCEDURE PERFORMED: Transesophageal echocardiogram. PREPROCEDURE DIAGNOSIS: Bacteremia. POSTPROCEDURE DIAGNOSIS: Aortic valve sclerosis with mild aortic regurgitation. No vegetations. PROCEDURE PERFORMED BY: Basil Muir M.D. FIRST ASSISTANT: None. IV SEDATION: Midazolam 2 mg IV. DESCRIPTION OF PROCEDURE: Rhythm was sinus. Patient received a total of 2 mg Midazolam IV for IV sedation and received Cetacaine spray to the back of the throat. Esophageal intubation was accomplished without difficulty using a Arthur two-dimensional transesophageal echocardiogram probe. The left ventricle appeared normal in size and systolic function. The left ventricle ejection fraction was 60% by visual estimate. No regional wall abnormalities of the left ventricle. The right ventricle appeared normal in size and systolic function. Atria appeared to be normal in size. Atrial septum was intact anatomically and by color flow Doppler. Pulse wave Doppler in the left upper pulmonary artery vein was normal. Aortic valve was 3-cuspid with moderate focal thickening and focal calcific deposits. Mild aortic regurgitation. No aortic stenosis. Structurally normal appearing mitral leaflets. Mild mitral regurgitation within normal limits. Tricuspid and pulmonic valves were normal. Very mild pulmonic regurgitation. No intracardiac masses. No pericardial effusion. Distal aortic arch and descending thoracic aorta showed mild atheroma. CONCLUSIONS: * No vegetations. * Normal left ventricle size and systolic function. Left ventricular function (LVF) 60% by visual estimate. * Moderate aortic valve sclerosis of a 3-cuspid aortic valve. Mild aortic regurgitation. No aortic stenosis. Mild atheroma in the distal aortic arch and descending thoracic aorta. [facility]
--- NOTE | 2019-10-22 09:36 | ECGEPIP ---
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
[2019-10-25 11:15] LABS: BASO % 0.4 % (0.0-1.0); EOS # 0.1 10^3/uL (0.0-0.5); EOS % 1.1 % (0.0-3.0); HEMATOCRIT 36.5 % (42.0-52.0); HEMOGLOBIN 11.3 g/dl (13.5-17.5); LYMPH # 0.8 10^3/uL (1.5-5.0); LYMPH % 10.5 % (24.0-44.0); MEAN CORPUSCULAR HEMOGLOBIN 29.4 pg (27.0-33.0); MEAN CORPUSCULAR VOLUME 94.8 fl (80.0-96.0); MONO # 0.6 10^3/uL (0.0-0.8); MONO % 8.7 % (0.0-5.0); NEUTROPHILS # 5.8 10^3/uL (1.5-8.5); NEUTROPHILS % 78.8 % (36.0-66.0); PLATELET COUNT, AUTOMATED 231 10^3/uL (150-450); RED BLOOD COUNT 3.85 10^6/uL (4.30-6.10); WHITE BLOOD COUNT 7.4 10^3/uL (4.0-10.0)
[2019-10-25 11:28] LABS: INR 1.23; PARTIAL THROMBOPLASTIN TIME 49.5 SECONDS (24.2-38.5); PROTHROMBIN TIME 15.8 SECONDS (12.5-14.3)
[2019-11-10 16:42] LABS: BASO % 0.5 % (0.0-1.0); EOS # 0.2 10^3/uL (0.0-0.5); EOS % 2.8 % (0.0-3.0); HEMATOCRIT 32.1 % (42.0-52.0); HEMOGLOBIN 10.1 g/dl (13.5-17.5); LYMPH # 0.8 10^3/uL (1.5-5.0); MEAN CORPUSCULAR HEMOGLOBIN 29.4 pg (27.0-33.0); MEAN CORPUSCULAR HGB CONC 31.5 g/dl (32.0-36.5); MEAN CORPUSCULAR VOLUME 93.3 fl (80.0-96.0); MONO # 0.7 10^3/uL (0.0-0.8); MONO % 12.1 % (0.0-5.0); NEUTROPHILS % 70.4 % (36.0-66.0); PLATELET COUNT, AUTOMATED 205 10^3/uL (150-450); RED BLOOD COUNT 3.44 10^6/uL (4.30-6.10); WHITE BLOOD COUNT 5.7 10^3/uL (4.0-10.0)
--- NOTE | 2019-11-15 15:25 | ECHO ---
DATE OF PROCEDURE: Age: Gender: Male Height: 172 cm Weight: 57 kg REFERRING PHYSICIAN: Dr. Ferreira INDICATION: Endocarditis, heart murmur MEASUREMENTS: Right ventricle (RV) 1.0 Left ventricle (LV) 4.3 LVPW 1.3 Left atrium (LA) 4.3 Aorta 3.0 RV 3.2. IVC 1.1 Mitral E velocity 97, A-wave 83, Eprime septal 4.7, Eprime lateral 10.2 FINDINGS: This study is of fair technical quality. The patient is in sinus rhythm. Normal LV size with overall preserved LV systolic function and estimated left ventricular ejection fraction (LVEF) of 55% to 60%. Septal wall motion abnormality likely related to prior open heart surgery. Right ventricle is normal size and systolic function. Both atria appear at least mildly enlarged. Aortic valve is sclerotic, but it has three cusps and preserved mobility. Noemy and tricuspid valve appear normal. Pulmonic valve is poorly visualized. No pericardial effusion is present. Inferior vena cava is normal size and collapses appropriately with respiration indicative of normal CVP. Aortic root and aortic arch appear normal. Limited views of abdominal aorta also appear normal. Doppler interrogation reveals competent aortic valve without significant stenosis or insufficiency. There is trace mitral and no tricuspid insufficiency. Mitral inflow pattern and tissue Doppler imaging of mitral annulus reveals probably normal diastolic function. CONCLUSIONS: 1. Study is of fair technical quality, the patient is in sinus rhythm. 2. Normal left ventricle (LV) size, systolic and diastolic function. Septal wall motion abnormality likely related to prior open heart surgery. 3. No hemodynamically significant valvular disease. Mild aortic sclerosis. 4. Normal central venous pressure. 5. Unable to estimate pulmonary artery pressure. 6. No visualized vegetations. MTDD
--- NOTE | 2019-11-15 17:29 | IPN ---
DATE: 09/24/2019 Ayaan continues complaining of neck pain, mostly on the right side, it is tender to touch and there is definitely muscle spasm. He has had no nausea, vomiting, or diarrhea, no cough or shortness of breath, and no fever. Blood cultures were repeated on 09/21/2019, so far are negative. LABORATORIES: White count is 7.83, hemoglobin 10.6, hematocrit 35.4, sodium 135, potassium 4.8, chloride 100, bicarbonate 26, BUN 65, creatinine 8, glucose 149. Temperature is 97.6. Heart: Normal S1, S2 with a holosystolic ejection murmur 2/6. Lungs: Clear, no wheezes, rales, or rhonchi. Abdomen: Soft, nontender, no hepatosplenomegaly. Right foot amputated 1st and 2nd toe, there is minimal purulent discharge at the site of the big toe amputation site, no redness, no tenderness. Left 4th toe amputation site dark eschar with no purulence. IMPRESSION: 1. Methicillin-sensitive Staphylococcus aureus (MSSA) bacteremia, most likely the source was the right big toe. Patient on Cefazolin 2 grams every 24 hours. He has repeated blood cultures on 09/21/2019 that are so far negative. The patient has a negative transesophageal echocardiogram. He will need 2 weeks of IV antibiotics, end of treatment will be 10/05/2019. If the patient gets the infusion at the group home, it should be given at night after dialysis. If he gets it at hemodialysis, he should get 2 grams on weekdays and 3 grams on weekend. End of therapy 10/05/2019. 2. Methicillin-resistant Staphylococcus aureus (MRSA) positive cultures from the left 4th toe amputation site with Escherichia (E) faecalis. I do not see any evidence of infection. There probably was colonization and therefore would discontinue IV vancomycin. 3. End-stage renal disease on hemodialysis, stable. 4. Neck pain. Seems musculoskeletal. Would suggest physical therapy and muscle relaxant. PLAN Case has been discussed with Dr. Ehsan Hamilton regarding his discharge planning. [facility]
--- NOTE | 2019-11-15 17:32 | IPN ---
DATE: 09/23/2019 Mr. Dykes was seen today after he had his transesophageal echocardiogram by Dr. Muir. He was having some increased cough, but no shortness of breath, no nausea, vomiting, or diarrhea, no fever or chills. LABORATORIES: White count 7.3, hemoglobin 9.8, hematocrit 32, platelets 273, sodium 137, potassium 4.4, chloride 100, bicarbonate 28, BUN 50, creatinine 6.4, glucose 141, CRP 8.86. Wound culture right big toe had methicillin-sensitive Staphylococcus aureus (MSSA), left 4th toe methicillin-resistant Staphylococcus aureus (MRSA) and Enterococcus faecalis. Blood cultures were positive for MSSA. Maximum temperature (T-max) was 99.4, currently 97.5, pulse 72, respirations 16, oxygen saturation 95% on room air. Heart: Normal S1, S2, systolic ejection murmur 3/6, no change. Lungs: Clear, no wheezes, rales, or rhonchi. Abdomen: Soft, nontender, no hepatosplenomegaly. Back: No costovertebral angle (CVA) or lumbosacral tenderness. Extremities: Right foot has amputation of 1st and 2nd toes, there is an open 1/2 centimeter incision at the amputation site of the right big toe with mild purulent discharge, minimal redness around the site, no tenderness. Left foot has four toes amputated. The 4th toe has a necrotic black eschar with minimal purulent discharge, non tenderness. There is still 4th toe in place. Transesophageal echocardiogram done by Dr. Muir was negative for vegetation. IMPRESSION: 1. Staphylococcus bacteremia methicillin-sensitive Staphylococcus aureus (MSSA) after debridement of the right big toe. Culture from the right big toe is positive for MSSA. Patient does not have any hardware and has negative transesophageal echocardiogram. He will be treated with 2 weeks of IV cefazolin from negative cultures. Repeat blood cultures are still pending. 2. Methicillin-sensitive Staphylococcus aureus (MSSA) abscess of the right foot. Patient will be treated with IV cefazolin for 2 weeks. 3. Chronic osteomyelitis of the left toe status post amputation done at the bedside by Dr. Blue at the wound clinic. Culture of the left 3rd toe is positive for methicillin-resistant Staphylococcus aureus (MRSA) and Enterococcus. Patient is on IV vancomycin. I am not concerned about the residual stump infection on the left side. This does not need long-term antibiotics. Topical treatment will probably take care of the problem. PLAN: The patient will need IV cefazolin that was started today at 2 grams every 24 hours. Once the patient is ready for discharge, he will be treated with IV cefazolin after dialysis at a dose of 2 grams on weekdays and 3 grams on the weekend. Repeat complete blood count (CBC), C-reactive protein (CRP), erythrocyte sedimentation rate (ESR) in the morning. Check on repeat blood culture. Make sure we have documented negative cultures. Case has been discussed with Dr. Blue who agrees with the plan. JOSE
--- NOTE | 2019-11-15 17:33 | IPN ---
DATE: 09/25/2019 SUBJECTIVE: The patient was seen and examined at the bedside today morning. He is afebrile, hemodynamically stable. He was dialyzed yesterday. He tolerated the hemodialysis procedure well and the patient is getting ready to be transferred to assisted today. OBJECTIVE: VITAL SIGNS: Temperature is 98.3 degrees Fahrenheit, blood pressure 139/64, pulse is 65, respiratory rate 16, saturating 98% on room air. Intake and output: There is no urine output recorded. PHYSICAL EXAMINATION: General: The patient is awake, alert, oriented x3, laying in bed, in no acute distress. Head and neck examination: Extraocular muscles intact. Pupils equally round and reactive to light. Mucous membranes are moist. Neck is supple. There is no jugular venous distention (JVD). Cardiovascular: S1, S2, regular rate. No edema of the bilateral lower extremities. Respiratory: Chest is clear to auscultation bilaterally. Bilateral equal air entry. No rales or rhonchi. Abdomen: Soft, positive bowel sounds. Nontender. No organomegaly. Musculoskeletal: The patient has dressing on both feet. No edema of the bilateral lower extremities. BI ARCHITECT: The patient has dysarthria, otherwise he follows commands and moves all extremities LABORATORY REVIEW: Complete blood count (CBC) showed a WBC of 6.3, hemoglobin 9.6, platelets 279. Basic metabolic panel (BMP) shows sodium 134, potassium 3.9, chloride 96, bicarbonate 31, BUN 40, creatinine is 5.3, glucose is 145. CURRENT INPATIENT MEDICATIONS: The patient's medications are all reviewed by myself. IV vancomycin has been stopped. He has been started on cephazolin 2 gm with dialysis on Monday, Monday and 3 gm with dialysis on Fridays and no other significant change in the medications today as compared with yesterday. ASSESSMENT AND PLAN: 1. End-stage renal disease. The patient's regular dialysis days are Monday, Monday, Monday, however, he was Monday, , Monday inpatient. He was dialyzed yesterday. He can be discharged today. There is no urgent need of dialysis. He will be dialyzed next time on Monday as outpatient. 2. Staphylococcus aureus bacteremia. The patient has been started on IV cephazolin. Last dose will be October 04. 3. Enterococcus faecalis, right foot osteomyelitis. The patient was initially on vancomycin. He has been switched to cephazolin as per infectious diseases recommendations. The rest of the management is as per podiatry. 4. Anemia and end-stage renal disease. The patient was getting Aranesp on admission. The rest of the anemia management will be done as outpatient once the patient is discharged. 5. Hypertension. Blood pressure is controlled with current dose of amlodipine, carvedilol and as needed hydralazine. DISPOSITION: The patient is okay to be discharged from a nephrology standpoint. I have already called the dialysis center to tell them about cephazolin dose with hemodialysis, which is to be 2 gm on Monday and Monday and 3 gm on Monday until October 04. MTDD
[2019-11-16 19:34] LABS: BASO % 0.7 % (0.0-1.0); EOS # 0.2 10^3/uL (0.0-0.5); EOS % 3.7 % (0.0-3.0); HEMATOCRIT 33.6 % (42.0-52.0); HEMOGLOBIN 10.2 g/dl (13.5-17.5); LYMPH # 0.9 10^3/uL (1.5-5.0); LYMPH % 16.4 % (24.0-44.0); MEAN CORPUSCULAR HEMOGLOBIN 28.8 pg (27.0-33.0); MEAN CORPUSCULAR HGB CONC 30.4 g/dl (32.0-36.5); MEAN CORPUSCULAR VOLUME 94.9 fl (80.0-96.0); MONO # 0.7 10^3/uL (0.0-0.8); MONO % 13.4 % (0.0-5.0); NEUTROPHILS # 3.5 10^3/uL (1.5-8.5); NEUTROPHILS % 65.2 % (36.0-66.0); PLATELET COUNT, AUTOMATED 232 10^3/uL (150-450); RED BLOOD COUNT 3.54 10^6/uL (4.30-6.10); WHITE BLOOD COUNT 5.4 10^3/uL (4.0-10.0)
[2019-11-27 13:21] LABS: ALT/SGPT 24 U/L (12-78); BILIRUBIN,TOTAL 0.5 MG/DL (0.2-1.0); BLOOD UREA NITROGEN 49 MG/DL (7-18); CALCIUM LEVEL 9.4 MG/DL (8.8-10.2); CARBON DIOXIDE LEVEL 29 MEQ/L (21-32); CHLORIDE LEVEL 98 MEQ/L (98-107); CREATININE FOR GFR 7.82 MG/DL (0.70-1.30); FREE T4 0.95 NG/DL (0.76-1.46); GLOMERULAR FILTRATION RATE 7.3 (>42); GLUCOSE, FASTING 140 MG/DL (70-100); POTASSIUM SERUM 3.7 MEQ/L (3.5-5.1); SODIUM LEVEL 137 MEQ/L (136-145); TROPONIN I < 0.02 NG/ML (< 0.10)
[2019-12-02 15:23] LABS: ERYTHROCYTE SEDIMENTATION RATE 117 mm/hr (0-20); HEMATOCRIT 32.3 % (42.0-52.0); HEMOGLOBIN 9.8 g/dl (13.5-17.5); MEAN CORPUSCULAR HEMOGLOBIN 28.8 pg (27.0-33.0); MEAN CORPUSCULAR HGB CONC 30.3 g/dl (32.0-36.5); PLATELET COUNT, AUTOMATED 259 10^3/uL (150-450); WHITE BLOOD COUNT 5.9 10^3/uL (4.0-10.0)
[2019-12-08 08:09] LABS: ALBUMIN 2.6 GM/DL (3.2-5.2); BILIRUBIN,TOTAL 0.6 MG/DL (0.2-1.0); C REACTIVE PROTEIN QUANTITATIV 8.86 MG/DL (0.00-0.30); CALCIUM LEVEL 9.2 MG/DL (8.8-10.2); CREATININE FOR GFR 4.53 MG/DL (0.70-1.30); GLOMERULAR FILTRATION RATE 13.8 (>42); POTASSIUM SERUM 3.8 MEQ/L (3.5-5.1); TOTAL PROTEIN 7.2 GM/DL (6.4-8.2)
[2019-12-11 21:50] LABS: ALBUMIN 2.5 GM/DL (3.2-5.2); BILIRUBIN,TOTAL 0.4 MG/DL (0.2-1.0); CREATININE FOR GFR 8.73 MG/DL (0.70-1.30); GLOMERULAR FILTRATION RATE 6.5 (>42); POTASSIUM SERUM 3.9 MEQ/L (3.5-5.1); TOTAL PROTEIN 6.8 GM/DL (6.4-8.2)
[2019-12-15 05:00] LABS: ALBUMIN 2.5 GM/DL (3.2-5.2); BILIRUBIN,TOTAL 0.5 MG/DL (0.2-1.0); CALCIUM LEVEL 9.3 MG/DL (8.8-10.2); CREATININE FOR GFR 5.43 MG/DL (0.70-1.30); GLOMERULAR FILTRATION RATE 11.2 (>42); POTASSIUM SERUM 3.6 MEQ/L (3.5-5.1); TOTAL PROTEIN 7.1 GM/DL (6.4-8.2); VANCOMYCIN LEVEL TROUGH 24.4 UG/ML (10.0-20.0)
[2019-12-15 11:12] LABS: CREATININE FOR GFR 7.22 MG/DL (0.70-1.30)
[2019-12-15 13:02] LABS: CALCIUM LEVEL 9.4 MG/DL (8.8-10.2); CREATININE FOR GFR 6.43 MG/DL (0.70-1.30); GLOMERULAR FILTRATION RATE 9.2 (>42); POTASSIUM SERUM 4.4 MEQ/L (3.5-5.1)
== END 2019-09-25 14:07 | DRG 638 ==
LOC: M ED 21:40 → M PCU 21:41 → EEVIPCON 21:41
PROVIDERS: ADMIT Internal Medicine; ATTEND Internal Medicine
DX: E11.621 Type 2 diabetes mellitus with foot ulcer (principal); R78.81 Bacteremia; L97.429 Non-pressure chronic ulcer of left heel and midfoot with unspecified severity; L97.419 Non-pressure chronic ulcer of right heel and midfoot with unspecified severity; M86.472 Chronic osteomyelitis with draining sinus, left ankle and foot; N18.6 End stage renal disease; Z88.6 Allergy status to analgesic agent; I25.10 Atherosclerotic heart disease of native coronary artery without angina pectoris; Z95.2 Presence of prosthetic heart valve; Z79.899 Other long term (current) drug therapy; Z89.422 Acquired absence of other left toe(s); Z89.421 Acquired absence of other right toe(s); M50.30 Other cervical disc degeneration, unspecified cervical region; B95.61 Methicillin susceptible Staphylococcus aureus infection as the cause of diseases classified elsewhere; E66.01 Morbid (severe) obesity due to excess calories; N18.3 Chronic kidney disease, stage 3 (moderate)

== ENCOUNTER → 2019-10-01 | Outpatient (REF) | payer MEDICARE, OTHER, MEDICAID ==
[~2019-10-01] MED LIST changes: +ACET-907 PO; +APAP325T4 PO; +ATOR40TA75 PO; +BARRIER CREAM TOP; +BISA10SU27 PR; -CARVedilol 12.5 MG TAB As Ordered ONE; +CEFA1INJ5 IV; +CEFA2SOL IV; +DARB10SYRN IV; +ENEMENE PR; +EUCECRE8 TOP; +FEVE650S3 PR; +GABA-843 PO; +GLUC1KIT IM; +MILKSUS3 PO; +MUCI600T31 PO; +NEPR1LIQ2 PO; -VANCOMYCIN 1000MG/20ML VIAL As Ordered ONE; -hydrALAZINE 20MG/ML 1ML VIAL (J0360 PER 20MG) As Ordered ONE
== END ==
PROVIDERS: ATTEND Physician Assistant
DX: N18.9 Chronic kidney disease, unspecified (principal)

== ENCOUNTER 2019-10-08 18:45 | Emergency (ER) | payer MEDICARE, OTHER, MEDICAID ==
[~2019-10-08] VITALS: Ht 172.7 cm; Wt 69.2 kg
[~2019-10-08 18:45] MED LIST changes: -APAP325T4 PO; -BARRIER CREAM TOP; -CEFA1INJ5 IV; -DARB10SYRN IV
[2019-10-08 18:57] VITALS: BP 197/85
[2019-10-08] MEDS ORDERED: APAP325T4 PO (19:17)
[2019-10-08] MEDS ORDERED: GABA-843 PO (19:17)
[2019-10-08] MEDS ORDERED: ALBU83IN INH (19:17)
[2019-10-08] MEDS ORDERED: TUMS500C PO (19:17)
[2019-10-08] MEDS ORDERED: ROSU10TA6 PO (19:17)
[2019-10-08] MEDS ORDERED: CEFA1INJ5 IV (19:17)
[2019-10-08] MEDS ORDERED: BARRIER CREAM TOP (19:17)
[2019-10-08] MEDS ORDERED: DARB10SYRN IV (19:17)
[2019-10-08] MEDS ORDERED: FEVE650S3 PR (19:17)
[2019-10-08 20:58] LABS: BASO # 0.1 10^3/uL (0.0-0.2); BASO % 0.9 % (0.0-1.0); EOS # 0.4 10^3/uL (0.0-0.5); EOS % 6.5 % (0.0-3.0); HEMATOCRIT 36.2 % (42.0-52.0); HEMOGLOBIN 10.8 g/dl (13.5-17.5); LYMPH % 17.7 % (24.0-44.0); MEAN CORPUSCULAR HGB CONC 29.8 g/dl (32.0-36.5); MEAN CORPUSCULAR VOLUME 97.3 fl (80.0-96.0); MONO # 0.4 10^3/uL (0.0-0.8); MONO % 6.5 % (0.0-5.0); NEUTROPHILS % 68.1 % (36.0-66.0); PLATELET COUNT, AUTOMATED 198 10^3/uL (150-450); RED BLOOD COUNT 3.72 10^6/uL (4.30-6.10); WHITE BLOOD COUNT 5.8 10^3/uL (4.0-10.0)
[2019-10-08 21:20] LABS: C REACTIVE PROTEIN QUANTITATIV 1.89 MG/DL (0.00-0.30); CALCIUM LEVEL 8.9 MG/DL (8.8-10.2); CREATININE FOR GFR 9.74 MG/DL (0.70-1.30); GLOMERULAR FILTRATION RATE 5.7 (>42); POTASSIUM SERUM 4.4 MEQ/L (3.5-5.1)
--- NOTE | 2019-10-08 22:04 | REPVR ---
PROCEDURE INFORMATION: Exam: MR Cervical Spine Without Contrast Exam date and time: 10/08/2019 9:26 PM Age: 69 years old Clinical indication: Abnormal findings; Abnormal xray or scan of neck and cervical spine; Additional info: Dens lesion seen on outpt imaging, dialysis dependent TECHNIQUE: Imaging protocol: Multiplanar magnetic resonance images of the cervical spine without contrast. COMPARISON: US Duplex,carotid (complete) 07/27/2018 10:10 PM FINDINGS: Patient motion. Mild retrolisthesis of C3 on C4. Vertebral body heights are preserved. Multilevel disc desiccation and disc space narrowing. There is edema involving C1 and C2. There is mild cervical prevertebral edema involving the upper cervical spine. No abnormal cord signal. No epidural fluid collection. C2-C3: No significant central or foraminal stenosis. C3-C4: Moderate disc osteophyte complex with bilateral uncinate spurring. There is moderate central canal stenosis and severe bilateral foraminal stenosis. C4-C5: Xhyu-yb-zsvvqbdo disc osteophyte complex with bilateral uncinate spurring. There is uhcj-fc-enhdcjqv central canal stenosis and mild bilateral foraminal stenosis. C5-C6: Moderate disc osteophyte complex with uncinate spurring more prominent on the left. There is moderate central canal stenosis, zzgp-ch-ulslzogd right foraminal stenosis and moderate to severe left foraminal stenosis. C6-C7: Minimal disc osteophyte complex without significant central or foraminal stenosis. C7-T1: No significant central or foraminal stenosis. IMPRESSION: Edema centered at the dens with involvement of both C1, C2 and the adjacent paraspinous soft tissues. Consider posttraumatic versus inflammatory/infectious process, neoplastic etiology is considered less likely however not excluded. Follow-up is recommended. Electronically signed by: Fabrizio Frazier On 10/08/2019 22:03:28 PM
--- NOTE | 2019-10-10 10:35 | ED PDOC ---
Post-Departure Follow-Up dr stauffer, dr candelario, dr ruby [facility] faxed formal report of alber qiunones for fu Cuco Kyle MD Oct 10, 2019 10:35
== END 2019-10-09 00:52 | disposition home or self-care (01) ==
LOC: EDBD 18:45 → M ED 18:45
DX: R93.7 Abnormal findings on diagnostic imaging of other parts of musculoskeletal system (principal); E11.9 Type 2 diabetes mellitus without complications; I10 Essential (primary) hypertension; N18.6 End stage renal disease; Z86.73 Personal history of transient ischemic attack (TIA), and cerebral infarction without residual deficits; G89.29 Other chronic pain; M54.2 Cervicalgia; Z99.2 Dependence on renal dialysis; Z79.84 Long term (current) use of oral hypoglycemic drugs; Z79.899 Other long term (current) drug therapy; Z88.8 Allergy status to other drugs, medicaments and biological substances

== ENCOUNTER → 2019-10-08 | Outpatient (REF) ==
[2019-10-08 11:04] LABS: HEMATOCRIT 30.8 % (42.0-52.0); HEMOGLOBIN 9.3 g/dl (13.5-17.5); MEAN CORPUSCULAR HEMOGLOBIN 29.2 pg (27.0-33.0); MEAN CORPUSCULAR HGB CONC 30.2 g/dl (32.0-36.5); MEAN CORPUSCULAR VOLUME 96.6 fl (80.0-96.0); PLATELET COUNT, AUTOMATED 179 10^3/uL (150-450); RED BLOOD COUNT 3.19 10^6/uL (4.30-6.10); WHITE BLOOD COUNT 5.6 10^3/uL (4.0-10.0)
[2019-10-08 11:14] LABS: ALBUMIN 2.7 GM/DL (3.2-5.2); BILIRUBIN,TOTAL 0.3 MG/DL (0.2-1.0); C REACTIVE PROTEIN QUANTITATIV 1.71 MG/DL (0.00-0.30); CALCIUM LEVEL 8.8 MG/DL (8.8-10.2); CREATININE FOR GFR 9.28 MG/DL (0.70-1.30); POTASSIUM SERUM 4.2 MEQ/L (3.5-5.1); TOTAL PROTEIN 7.2 GM/DL (6.4-8.2)
== END ==
PROVIDERS: ATTEND Internal Medicine
DX: N18.6 End stage renal disease (principal); I12.0 Hypertensive chronic kidney disease with stage 5 chronic kidney disease or end stage renal disease; G40.909 Epilepsy, unspecified, not intractable, without status epilepticus

== ENCOUNTER → 2019-10-16 | Outpatient (REF) | payer MEDICARE, OTHER, MEDICAID ==
[~2019-10-16] MED LIST changes: +APAP325T4 PO; +BARRIER CREAM TOP; +CEFA1INJ5 IV; +DARB10SYRN IV
== END ==
PROVIDERS: ATTEND Internal Medicine
DX: B95.62 Methicillin resistant Staphylococcus aureus infection as the cause of diseases classified elsewhere (principal)

== ENCOUNTER → 2019-10-17 | Outpatient (CLI) | payer MEDICARE, OTHER, MEDICAID ==
--- NOTE | 2019-11-06 12:44 | REP ---
BILATERAL LOWER EXTREMITY ARTERIAL ULTRASOUND CLINICAL: History of claudication and peripheral vascular disease. TECHNIQUE: Real-time mejia scale and color Doppler evaluation using linear high frequency transducer. FINDINGS: The bilateral lower extremity arterial structures demonstrate significant calcified atheromatous changes. ABIs could not be obtained due to calcification. Right lower extremity demonstrates areas of approximately 2:1 stenosis at the level of the tibioperoneal trunk and 3:1 stenosis at the level of the proximal anterior tibial artery. The left lower extremity demonstrates minimal stenosis at the level of the profunda and 3:1 stenosis at the level of the proximal posterior tibial artery. RIGHT LEFT Common femoral artery 121 cm/s biphasic 97.8 cm/s biphasic Profunda 153 cm/s biphasic 161 cm/s biphasic Proximal SFA 99 cm/s biphasic 80 cm/s biphasic Mid SFA 73 cm/s biphasic 68 cm/s biphasic Distal SFA 61 cm/s biphasic 69 cm/s biphasic Popliteal artery 58 cm/s triphasic 60 cm/s biphasic Proximal ZULEIMA 180 cm/s triphasic 10 cm/s monophasic tibioperoneal trunk 413 cm/s monophasic 50 cm/s monophasic Proximal STOREROOM ATTENDANT 55 cm/s biphasic 400 cm/s monophasic Distal STOREROOM ATTENDANT 14 cm/s monophasic 44 cm/s monophasic Distal ZULEIMA 33 cm/s monophasic 22 cm/s monophasic IMPRESSION: Extensive calcified atherosclerotic changes throughout the bilateral lower extremities with areas of stenosis as described above. MTDD
== END ==
LOC: M RAD 13:38
PROVIDERS: ATTEND Surgery Vascular Surgery
DX: I70.213 Atherosclerosis of native arteries of extremities with intermittent claudication, bilateral legs (principal); L97.529 Non-pressure chronic ulcer of other part of left foot with unspecified severity; L97.518 Non-pressure chronic ulcer of other part of right foot with other specified severity; I70.234 Atherosclerosis of native arteries of right leg with ulceration of heel and midfoot; I70.244 Atherosclerosis of native arteries of left leg with ulceration of heel and midfoot

== ENCOUNTER → 2019-11-05 | Outpatient (REF) | payer MEDICARE, OTHER, MEDICAID ==
[2019-11-05 10:47] LABS: HEMATOCRIT 42.6 % (42.0-52.0); HEMOGLOBIN 12.9 g/dl (13.5-17.5); MEAN CORPUSCULAR HEMOGLOBIN 30.1 pg (27.0-33.0); MEAN CORPUSCULAR HGB CONC 30.3 g/dl (32.0-36.5); MEAN CORPUSCULAR VOLUME 99.3 fl (80.0-96.0); PLATELET COUNT, AUTOMATED 166 10^3/uL (150-450); RED BLOOD COUNT 4.29 10^6/uL (4.30-6.10); WHITE BLOOD COUNT 5.3 10^3/uL (4.0-10.0)
[2019-11-05 11:20] LABS: ERYTHROCYTE SEDIMENTATION RATE 44 mm/hr (0-20)
== END ==
PROVIDERS: ATTEND Physician Assistant
DX: R60.9 Edema, unspecified (principal)
CPT/HCPCS: 36415; 85027; 85652; 86140; G0463

== ENCOUNTER → 2019-11-07 | Outpatient (REF) | payer MEDICARE, OTHER, MEDICAID ==
[2019-11-07 10:10] LABS: BASO # 0.1 10^3/uL (0.0-0.2); BASO % 1.3 % (0.0-1.0); EOS # 0.3 10^3/uL (0.0-0.5); EOS % 4.6 % (0.0-3.0); HEMOGLOBIN 13.4 g/dl (13.5-17.5); LYMPH # 1.4 10^3/uL (1.5-5.0); LYMPH % 22.1 % (24.0-44.0); MEAN CORPUSCULAR HEMOGLOBIN 30.3 pg (27.0-33.0); MEAN CORPUSCULAR HGB CONC 30.5 g/dl (32.0-36.5); MEAN CORPUSCULAR VOLUME 99.5 fl (80.0-96.0); MONO # 0.5 10^3/uL (0.0-0.8); MONO % 8.4 % (0.0-5.0); PLATELET COUNT, AUTOMATED 176 10^3/uL (150-450); RED BLOOD COUNT 4.42 10^6/uL (4.30-6.10); WHITE BLOOD COUNT 6.3 10^3/uL (4.0-10.0)
[2019-11-07 10:44] LABS: ALBUMIN 3.4 GM/DL (3.2-5.2); BILIRUBIN,TOTAL 0.4 MG/DL (0.2-1.0); C REACTIVE PROTEIN QUANTITATIV 0.65 MG/DL (0.00-0.30); CALCIUM LEVEL 9.3 MG/DL (8.8-10.2); CREATININE FOR GFR 4.93 MG/DL (0.70-1.30); GLOMERULAR FILTRATION RATE 12.5 (>42); MAGNESIUM LEVEL 2.1 MG/DL (1.8-2.4); TOTAL PROTEIN 8.1 GM/DL (6.4-8.2)
== END ==
PROVIDERS: ATTEND Internal Medicine
DX: R22.9 Localized swelling, mass and lump, unspecified (principal)

== ENCOUNTER → 2019-12-10 | Outpatient (REF) | payer MEDICARE, OTHER, MEDICAID | LOC: M LAB REF 15:59 | PROVIDERS: ATTEND Physician Assistant | DX: I96 Gangrene, not elsewhere classified (principal); E11.621 Type 2 diabetes mellitus with foot ulcer ==

== ENCOUNTER → 2019-12-19 | Outpatient (REF) | PROVIDERS: ATTEND Internal Medicine | DX: Z20.828 Contact with and (suspected) exposure to other viral communicable diseases (principal) ==

== ENCOUNTER → 2019-12-19 | Outpatient (CLI) | payer MEDICARE, OTHER, MEDICAID ==
--- NOTE | 2019-12-19 14:32 | REP ---
INDICATION: SPONDYLOSIS W/O MYELOPATHY, CERVICAL REGION. COMPARISON: None. TECHNIQUE/RADIOTRACER AND DOSE: 21.3 mCi of Technetium-99m MDP was injected and standard whole-body bone scanning is acquired. FINDINGS: There is a normal distribution of skeletal tracer with uptake in bilateral kidneys and in the urinary bladder. There is no evidence to suggest skeletal metastatic disease. There is mild osteoarthritic uptake pattern in the knees, particularly the medial compartments bilaterally. Mild osteoarthritic uptake is seen in the acromioclavicular joints of each shoulder. There is mild degenerative uptake pattern in the cervical spine diffusely. IMPRESSION: No evidence to suggest skeletal metastatic disease. Degenerative and osteoarthritic uptake pattern as above.. <Electronically signed by Barry Medina > 12/19/19 0850
== END ==
LOC: M RAD 10:04
PROVIDERS: ATTEND Physician Assistant
DX: M47.812 Spondylosis without myelopathy or radiculopathy, cervical region (principal); M19.011 Primary osteoarthritis, right shoulder; M19.012 Primary osteoarthritis, left shoulder; M50.30 Other cervical disc degeneration, unspecified cervical region
CPT/HCPCS: 78306; A9503

== ENCOUNTER → 2019-12-26 | Outpatient (REF) | payer MEDICARE, OTHER ==
[~2019-12-26] MED LIST changes: +COLC0.6T47 PO; -COLC1TAB13 PO; +GABA-282 PO; -GABA-843 PO
== END ==
LOC: EDSTATUS 02-03 12:14
PROVIDERS: ATTEND Internal Medicine
DX: Z20.828 Contact with and (suspected) exposure to other viral communicable diseases (principal)

== ENCOUNTER → 2019-12-30 | Outpatient (CLI) | payer MEDICARE, OTHER, MEDICAID ==
[~2019-12-30] MED LIST changes: +ACETAMINOPHEN *IV* 1,000 MG in IV 1 EA IV ONE; -COLC0.6T47 PO; +COLC1TAB13 PO; -GABA-282 PO; +GABA-843 PO; +ISOVUE-300 61% 50ML VIAL As Ordered ONE; +LIDOCAINE 1% MDV 20ML VIAL As Ordered ONE; +MIDAZOLAM INJ 2MG/2ML VIAL (J2250 PER 1MG) As Ordered ONE; +fentaNYL 100 MCG/2 ML INJECTION (J3010) As Ordered ONE; +hydrALAZINE 20MG/ML 1ML VIAL (J0360 PER 20MG) As Ordered ONE
[2019-12-30 10:18] LABS: HEMATOCRIT 35.8 % (42.0-52.0); HEMOGLOBIN 10.9 g/dl (13.5-17.5); MEAN CORPUSCULAR HEMOGLOBIN 30.4 pg (27.0-33.0); MEAN CORPUSCULAR HGB CONC 30.4 g/dl (32.0-36.5); MEAN CORPUSCULAR VOLUME 99.7 fl (80.0-96.0); PLATELET COUNT, AUTOMATED 227 10^3/uL (150-450); RED BLOOD COUNT 3.59 10^6/uL (4.30-6.10); WHITE BLOOD COUNT 7.6 10^3/uL (4.0-10.0)
[2019-12-30 11:02] LABS: CREATININE FOR GFR 4.67 MG/DL (0.70-1.30); GLOMERULAR FILTRATION RATE 13.3 (>42); POTASSIUM SERUM 6.1 MEQ/L (3.5-5.1)
--- NOTE | 2019-12-30 12:15 | ROOPDOC ---
[facility] Report Of Operation Report of Operation DATE OF PROCEDURE: 12/30/19 PREPROCEDURE DIAGNOSES: Atherosclerosis of the [place] arteries with nonhealing wound left foot POSTPROCEDURE DIAGNOSES: Same PROCEDURE: 1. Ultrasound-guided access right common femoral artery 2. Aortoiliofemoral arteriogram 3. Selection left common femoral artery and superficial femoral artery with left lower extremity runoff 4. Cross chronic total occlusion left peroneal artery and selection distal left peroneal artery with arteriogram 5. Angioplasty left peroneal artery with 2.5 x 220 Leonard balloon 6. Angioplasty left popliteal artery and tibioperoneal trunk with 4 x 100 Leonard balloon 7. Attempt to cross chronic total occlusion left anterior tibial artery and posterior tibial arteries, aborted 8. Completion arteriograms left lower extremity 9. Mynx closure right common femoral artery SURGEON: Lindsey Marcos MD ANESTHESIA: Local anesthesia 5 mL lidocaine. Moderate intravenous conscious se dation was not utilized for this procedure. The patient has a history of postprocedure codes with another provider, and it was unclear at that time if the codes were related to sedation or protamine, best refill it is safest to do the procedures without sedation, which the patient has tolerated well in the past. He did receive 4000 units of heparin IV, hydralazine 10 mg IV, and 1000 mg of Tylenol IV for the procedure. CONTRAST: 60 mL Isovue-300 INDICATION FOR PROCEDURE: This is a very pleasant 69-year-old gentleman with recurrent severe end-stage atherosclerosis the [place] arteries with nonhealing wounds of both feet, now status post healing of his right foot but still with an open wound deteriorating on the left foot. Wrist benefits and alternatives to an arteriogram potential intervention were explained to the patient he is agreeable to proceed. Informed consent was obtained. INTERPRETATION: 1. The aortoiliofemoral segments are widely patent. There is no stenosis noted in the distal aorta, the common iliac arteries, the hypogastric arteries, or the external iliac arteries. Both common femoral arteries are widely patent with good runoff into the profunda in the proximal SFA. 2. The left superficial femoral artery is only mildly ectatic but widely patent with no flow-limiting stenosis or plaque noted. The stent from Ced's canal through the proximal popliteal artery is widely patent. The popliteal artery distal to this is heavily stenotic with several near occlusions and then there is no notable tibial runoff distal to the mid popliteal artery. There are some collaterals and intermittent short segment patency of the distal tibials, but no in-line flow or proximal flow is noted. 3. After several repeated angioplasties of the left peroneal artery and poplitea l artery, there is widely patent in-line flow to the ankle with no extravasation, embolization, or dissections noted. The peroneal then collateralizes to the anterior tibial artery and posterior tibial artery in the proximal and mid and distal calf which provide some runoff to the distal foot. This is not in-line flow, but it is certainly much better than what we started with. After attempts to cross into the origins of the posterior tibial artery and anterior tibial artery on the left, no extravasation or embolization were noted. There was still good flow through the peroneal artery. REPORT OF OPERATION: Patient was brought to the angiographic suite in stable condition. His bilateral groins were prepped and draped in sterile fashion. A timeout was performed. Local anesthesia was tug captain to skin and subcutaneous tissue over the right common femoral artery. A microneedle was used to access the artery under ultrasound guidance. A wire was passed through this access needle was removed and a 4 Czech sheath was placed and flushed with saline. A Glidewire was advanced through the sheath into the distal aorta. A flushing catheter was advanced over the wire into the distal aorta. Aortoiliofemoral arteriograms were performed. Please interpretation above. We then utilized the catheter and the wire to go up and over the bifurcation selected the left common femoral artery and superficial femoral artery. Left lower extremity runoff was performed. We then advanced the wire into the distal popliteal artery up to the area of occlusion. We exchanged the sheath for a 6 Czech 90 cm destination sheath over the wire using the Seldinger technique and flushed the sheath with saline. We exchange the wire for an O18 Glidewire advantage and a [place] catheter. We were able to cross after some effort through the occlusion in the peroneal artery to the distal ankle. Quick arteriogram confirmed we were in the true lumen. We then angioplasty the length of the vessel with a 2.5 x 220 Leonard balloon. After three-minute inflations along the length of the vessel, there is definitely improvement in flow but still a lot of her irregularity in the distal popliteal artery and the tibioperoneal trunk. We exchange the balloon for a 4 x 100 Leonard balloon and three-minute inflations were performed. Following this there was definitely improvement but still some dissections and irregularity in the areas of heavy is plaque in occlusion in the peroneal artery. A second angioplastied with a 2.5 x 220 Leonard balloon along the length of the vessel was performed. Following this there was widely patent inflow through the peroneal artery to the ankle with collateralization to the distal anterior tibial and posterior tibial arteries. We did attempt to cross into both the anterior tibial and posterior tibial arteries utilizing the 018 wire and an angled Glidewire, but despite aggressive efforts, we were not able to cross into either vessel and this was aborted. Following this there was still widely patent flow through the peroneal and the collaterals to the distal foot and ankle. Unfortunately, this is not as good as in-line flow through the anterior tibial and posterior tibial artery, but it is certainly better than what we started with. The patient at least now has one-vessel in-line flow with collaterals that are fairly good to the foot. We are hopeful this will be adequate to help him with his healing. We exchange the sheath over an O35 Glidewire for short 6 Czech sheath and the plantar Mynx closure device with good hemostasis. Pressure was held for 5 minutes and sterile dressings were applied. The patient was taken to recovery in stable condition. He did have some hypertension due to back pain during the case which was treated with hydralazine 10 mg IV and Tylenol 1000 mg IV. He tolerated this well. ESTIMATED BLOOD LOSS: Approximately 5 mL. COMPLICATIONS: None. PLAN: It is okay to resume home diet and medications. We will see the patient back in a week to check his groin access site and perfusion. Unfortunately, we are hitting the point of diminishing returns, and were only able to open one of his 3 tibial vessels, but he does have collateral flow to the other 2 at the ankle. This is still a significant improvement considering he had no flow through any of his tibial vessels prior to intervention. Continue with local wound care left foot. We appreciate the opportunity to participate in the care of this patient. LINDSEY MARCOS MD Dec 30, 2019 12:15
[2019-12-30 16:00] VITALS: BP 116/59
== END ==
LOC: M IRPRO 08:38
PROVIDERS: ATTEND Surgery Vascular Surgery
DX: I70.245 Atherosclerosis of native arteries of left leg with ulceration of other part of foot (principal); I70.213 Atherosclerosis of native arteries of extremities with intermittent claudication, bilateral legs; L97.529 Non-pressure chronic ulcer of other part of left foot with unspecified severity; I70.92 Chronic total occlusion of artery of the extremities; I12.0 Hypertensive chronic kidney disease with stage 5 chronic kidney disease or end stage renal disease; E78.00 Pure hypercholesterolemia, unspecified; N18.6 End stage renal disease; E11.22 Type 2 diabetes mellitus with diabetic chronic kidney disease; E11.319 Type 2 diabetes mellitus with unspecified diabetic retinopathy without macular edema; I42.9 Cardiomyopathy, unspecified; F32.9 Major depressive disorder, single episode, unspecified; Z79.01 Long term (current) use of anticoagulants; Z79.899 Other long term (current) drug therapy; Z86.73 Personal history of transient ischemic attack (TIA), and cerebral infarction without residual deficits; Z88.6 Allergy status to analgesic agent; Z99.2 Dependence on renal dialysis
CPT/HCPCS: 37224; 37228; 75630; 75774; 80048; 85027; C1725; C1729; C1760; C1769; C1887; C1894; J0360; J1644; J2250; J3010; Q9967

== ENCOUNTER → 2020-01-01 | Outpatient (REF) | payer MEDICARE, OTHER, MEDICAID ==
[~2020-01-01] MED LIST changes: -ACETAMINOPHEN *IV* 1,000 MG in IV 1 EA IV ONE; +COLC0.6T47 PO; -COLC1TAB13 PO; +GABA-282 PO; -GABA-843 PO; -ISOVUE-300 61% 50ML VIAL As Ordered ONE; -LIDOCAINE 1% MDV 20ML VIAL As Ordered ONE; -MIDAZOLAM INJ 2MG/2ML VIAL (J2250 PER 1MG) As Ordered ONE; -fentaNYL 100 MCG/2 ML INJECTION (J3010) As Ordered ONE; -hydrALAZINE 20MG/ML 1ML VIAL (J0360 PER 20MG) As Ordered ONE
== END ==
PROVIDERS: ATTEND Internal Medicine
DX: Z20.828 Contact with and (suspected) exposure to other viral communicable diseases (principal)

== ENCOUNTER → 2020-01-07 | Outpatient (REF) | payer MEDICARE, OTHER, MEDICAID ==
[~2020-01-07] MED LIST changes: -GABA-282 PO; +GABA-843 PO
== END ==
LOC: M LAB REF 15:56
PROVIDERS: ATTEND Physician Assistant
DX: L97.524 Non-pressure chronic ulcer of other part of left foot with necrosis of bone (principal)

== ENCOUNTER → 2020-01-19 | Outpatient (REF) | PROVIDERS: ATTEND Internal Medicine | DX: Z20.828 Contact with and (suspected) exposure to other viral communicable diseases (principal) ==

== ENCOUNTER → 2020-01-23 | Outpatient (REF) ==
[~2020-01-23] MED LIST changes: +DEXT4TAB2 PO; +GABA-282 PO; -GABA-843 PO; -GLUC4CHW19 PO
== END ==
PROVIDERS: ATTEND Internal Medicine
DX: Z20.828 Contact with and (suspected) exposure to other viral communicable diseases (principal)

== ENCOUNTER → 2020-01-29 | Outpatient (REF) | PROVIDERS: ATTEND Internal Medicine | DX: Z20.828 Contact with and (suspected) exposure to other viral communicable diseases (principal) ==

== ENCOUNTER → 2020-02-04 | Outpatient (REF) | PROVIDERS: ATTEND Internal Medicine | DX: Z20.828 Contact with and (suspected) exposure to other viral communicable diseases (principal) ==

== ENCOUNTER → 2020-02-10 | Outpatient (REF) | payer MEDICARE, OTHER ==
[~2020-02-10] MED LIST changes: -DEXT4TAB2 PO; +GLUC4CHW19 PO
== END ==
PROVIDERS: ATTEND Internal Medicine
DX: Z20.822 Contact with and (suspected) exposure to COVID-19 (principal)

== ENCOUNTER → 2020-02-13 | Outpatient (CLI) | payer MEDICARE, OTHER, MEDICAID ==
--- NOTE | 2020-02-13 11:28 | REP ---
INDICATION: ATHSCL [place] ARTERIES OF EXTRM W/ CLAUDICATION COMPARISON: 10/17/2019. TECHNIQUE: Real time sanchez scale and Duplex Doppler evaluation of the bilateral lower extremity arterial vasculature using linear high frequency transducer. FINDINGS: Sanchez scale and duplex doppler images demonstrate heavily calcified vessels bilaterally, with calcific atherosclerotic plaquing. There is stenosis of the proximal right anterior tibial artery. Diffuse biphasic and triphasic waveforms are seen in the right lower extremity arterial structures with monophasic waveforms in the distal right anterior posterior tibial arteries. On the left there is stenosis of the left profunda artery. Triphasic and biphasic waveforms are seen in the left common femoral and superficial femoral arteries. Monophasic waveforms are seen in the popliteal artery and calf arteries. Peak systolic velocities (cm/sec) Common femoral artery: Right 87; Left 102 Profunda femoris: Right 95; Left 174 SFA (proximal): Right 88; Left 126 SFA (mid): Right 78; Left 82 SFA (distal): Right 38; Left 46 Popliteal artery: Right 58; Left 53 ZULEIMA (prox.): Right 398; Left 16 Tibioperoneal trunk: Right 28; Left 55 CREPE LAMINATOR OPERATOR (prox.): Right 38; Left 19 CREPE LAMINATOR OPERATOR (distal): Right 13; Left 50 ZULEIMA (distal): Right 38; Left 48 IMPRESSION: Heavily calcified arterial structures in the bilateral lower extremities with stenosis of the proximal right anterior tibial artery. Stenosis left profunda artery. <Electronically signed by Ramesh Sanchez > 02/13/20 1124
== END ==
LOC: M RAD 09:48
PROVIDERS: ATTEND Physician Assistant
DX: I70.213 Atherosclerosis of native arteries of extremities with intermittent claudication, bilateral legs (principal)

== ENCOUNTER → 2020-02-14 | Outpatient (REF) | payer MEDICARE, OTHER | PROVIDERS: ATTEND Internal Medicine | DX: Z20.822 Contact with and (suspected) exposure to COVID-19 (principal) ==

== ENCOUNTER → 2020-02-19 | Outpatient (REF) | payer MEDICARE, OTHER, MEDICAID | PROVIDERS: ATTEND Internal Medicine | DX: Z20.822 Contact with and (suspected) exposure to COVID-19 (principal) ==

== ENCOUNTER → 2020-02-26 | Outpatient (REF) | PROVIDERS: ATTEND Internal Medicine | DX: Z20.822 Contact with and (suspected) exposure to COVID-19 (principal) ==

== ENCOUNTER → 2020-03-04 | Outpatient (REF) | payer MEDICARE, OTHER, MEDICAID | PROVIDERS: ATTEND Internal Medicine | DX: Z20.822 Contact with and (suspected) exposure to COVID-19 (principal) ==

== ENCOUNTER → 2020-03-11 | Outpatient (REF) | payer MEDICARE, OTHER, MEDICAID | PROVIDERS: ATTEND Internal Medicine | DX: Z20.822 Contact with and (suspected) exposure to COVID-19 (principal) ==

== ENCOUNTER → 2020-03-18 | Outpatient (REF) | payer MEDICARE, OTHER, MEDICAID | PROVIDERS: ATTEND Internal Medicine | DX: Z20.822 Contact with and (suspected) exposure to COVID-19 (principal) ==

== ENCOUNTER → 2020-03-25 | Outpatient (REF) | payer MEDICARE, OTHER, MEDICAID | PROVIDERS: ATTEND Internal Medicine | DX: Z20.822 Contact with and (suspected) exposure to COVID-19 (principal) ==

== ENCOUNTER → 2020-04-01 | Outpatient (REF) | payer MEDICARE, OTHER, MEDICAID ==
[~2020-04-01] MED LIST changes: +DEXT4TAB2 PO; -GLUC4CHW19 PO
== END ==
PROVIDERS: ATTEND Internal Medicine
DX: Z20.822 Contact with and (suspected) exposure to COVID-19 (principal)

== ENCOUNTER → 2020-04-08 | Outpatient (REF) | payer MEDICARE, OTHER, MEDICAID | PROVIDERS: ATTEND Internal Medicine | DX: Z20.822 Contact with and (suspected) exposure to COVID-19 (principal) ==

== ENCOUNTER → 2020-04-15 | Outpatient (REF) | payer MEDICARE, OTHER, MEDICAID | PROVIDERS: ATTEND Internal Medicine | DX: Z11.52 Encounter for screening for COVID-19 (principal) ==

== ENCOUNTER → 2020-05-19 | Outpatient (REF) | payer MEDICARE, OTHER ==
[~2020-05-19] MED LIST changes: -DEXT4TAB2 PO; +SFHGLU4TA PO
== END ==
PROVIDERS: ATTEND Internal Medicine
DX: Z20.822 Contact with and (suspected) exposure to COVID-19 (principal); L97.524 Non-pressure chronic ulcer of other part of left foot with necrosis of bone
CPT/HCPCS: 11042; U0003

== ENCOUNTER → 2020-05-20 | Outpatient (REF) | payer MEDICARE, OTHER, MEDICAID | PROVIDERS: ATTEND Internal Medicine | DX: Z20.822 Contact with and (suspected) exposure to COVID-19 (principal) ==

== ENCOUNTER → 2020-05-26 | Outpatient (REF) | payer MEDICARE, OTHER, MEDICAID | PROVIDERS: ATTEND Internal Medicine | DX: Z20.822 Contact with and (suspected) exposure to COVID-19 (principal) ==

== ENCOUNTER → 2020-06-02 | Outpatient (CLI) | payer MEDICARE, OTHER ==
--- NOTE | 2020-06-02 12:15 | REP ---
INDICATION: ATHEROSCLEROSIS COMPARISON: 02/13/2020. TECHNIQUE: Real time sanchez scale and Duplex Doppler evaluation of the bilateral lower extremity arterial vasculature using linear high frequency transducer. FINDINGS: Sanchez scale and duplex doppler images demonstrate diffuse moderate to severe plaquing bilaterally. On the right diffuse biphasic waveforms are noted, with monophasic waveform throughout the anterior tibial artery and in the distal posterior tibial artery. There are findings compatible with new stenosis of the right popliteal artery approximately 3.5-1, in approximately 3-1 stenosis of the right tibioperoneal trunk and proximal posterior tibial artery, as well as approximately 3.5-1 stenosis of the proximal right anterior tibial artery. On the left there are diffuse biphasic waveforms in the common femoral and proximal to mid superficial femoral artery with monophasic waveforms distal to that. There are findings compatible with new stenosis of the left popliteal artery approximately 5-1. There is new occlusion of the left tibioperoneal trunk. Lower genicular artery is noted. The proximal posterior tibial artery is occluded with reconstitution just distal to that. There also appears to be approximately 3-1 stenosis of the distal anterior tibial artery. Peak systolic velocities (cm/sec) Common femoral artery: Right 110; Left 156 Profunda femoris: Right 158; Left 180 SFA (proximal): Right 79; Left 79 SFA (mid): Right 70; Left 75 SFA (distal): Right 64; Left 27 Popliteal artery: Right 209; Left 148 ZULEIMA (prox.): Right 390; Left 16 Tibioperoneal trunk: Right 24; Left occluded FRAMING CARPENTER (prox.): Right 76; Left occluded FRAMING CARPENTER (distal): Right 41; Left 61 ZULEIMA (distal): Right 63; Left 96 IMPRESSION: Moderate to severe plaquing bilaterally. New stenoses of the bilateral popliteal arteries and calf arteries as discussed above. New occlusion of the left tibioperoneal trunk and proximal FRAMING CARPENTER. <Electronically signed by Ramesh Sanchez > 06/02/20 1211
== END ==
LOC: M RAD 10:23
PROVIDERS: ATTEND Internal Medicine
DX: I70.213 Atherosclerosis of native arteries of extremities with intermittent claudication, bilateral legs (principal)

== ENCOUNTER → 2020-06-03 | Outpatient (REF) | payer MEDICARE, OTHER ==
[2020-06-03 10:33] LABS: HEMATOCRIT 33.3 % (42.0-52.0); HEMOGLOBIN 10.4 g/dl (13.5-17.5); MEAN CORPUSCULAR HEMOGLOBIN 29.5 pg (27.0-33.0); MEAN CORPUSCULAR HGB CONC 31.2 g/dl (32.0-36.5); MEAN CORPUSCULAR VOLUME 94.3 fl (80.0-96.0); PLATELET COUNT, AUTOMATED 128 10^3/uL (150-450); RED BLOOD COUNT 3.53 10^6/uL (4.30-6.10); WHITE BLOOD COUNT 5.2 10^3/uL (4.0-10.0)
[2020-06-03 10:54] LABS: ALBUMIN 3.5 GM/DL (3.2-5.2); BILIRUBIN,TOTAL 0.5 MG/DL (0.2-1.0); C REACTIVE PROTEIN QUANTITATIV 1.68 MG/DL (0.00-0.30); CALCIUM LEVEL 9.1 MG/DL (8.8-10.2); CREATININE FOR GFR 6.22 MG/DL (0.70-1.30); GLOMERULAR FILTRATION RATE 9.5 (>42); TOTAL PROTEIN 7.5 GM/DL (6.4-8.2)
== END ==
PROVIDERS: ATTEND Internal Medicine
DX: N18.6 End stage renal disease (principal)

== ENCOUNTER → 2020-06-09 | Outpatient (REF) | payer MEDICARE, OTHER, MEDICAID | LOC: M LAB REF 15:40 | PROVIDERS: ATTEND Physician Assistant | DX: L97.524 Non-pressure chronic ulcer of other part of left foot with necrosis of bone (principal) ==

== ENCOUNTER → 2020-06-18 | Outpatient (CLI) | payer MEDICARE, OTHER, MEDICAID ==
--- NOTE | 2020-06-18 17:11 | DEXAMM ---
INDICATION: C79.51 SECONDARY MALIGNANT NEOPLASM OF BONE. COMPARISON: None. TECHNIQUE: Bone density was measured using dual-energy x-ray absorptiometry (DEXA). FINDINGS: AP SPINE L1-L4 BMD 1.004 g/cm2 Young Adult T-Score -0.1 Age Matched Z-Score -1.3. LT FEMUR, TOTAL BMD 0.425 g/cm2 Young Adult T-Score -4.6 Age Matched Z-Score -3.9. LT NECK BMD 0.423 g/cm2 Young Adult T-Score -4.4 Age Matched Z-Score -3.7. RT FEMUR, TOTAL BMD 0.485 g/cm2 Young Adult T-Score -4.1 Age Matched Z-Score -3.5. RT NECK BMD 0.489 g/cm2 Young Adult T-Score -3.9 Age Matched Z-Score -3.2. IMPRESSION: There is low bone density of the spine. There is osteoporosis of the left hip. There is osteoporosis of the right hip. FOLLOW-UP: Recommendation for the next bone density exam: 2 years. <Electronically signed by Ramesh Sanchez > 06/18/20 0818
== END ==
LOC: M WHC 10:56
PROVIDERS: ATTEND Psychiatry & Neurology Neurology
DX: C79.51 Secondary malignant neoplasm of bone (principal); M85.89 Other specified disorders of bone density and structure, multiple sites

== ENCOUNTER → 2020-06-25 | Outpatient (CLI) | payer MEDICARE, OTHER, MEDICAID ==
--- NOTE | 2020-06-25 13:11 | REP ---
INDICATION: ANOXIC BRAIN DAMAGE, AMS, SPONDYLOSIS. COMPARISON: Comparison is made with prior CT studies of the brain from September 18, 2019 and September 17, 2019.. TECHNIQUE: Helical scanning is acquired. 5 mm axial images were reformatted. Coronal MPR images were generated. FINDINGS: Digital preliminary pharmacy director radiographs are unremarkable. Bone window settings demonstrate heavy vascular calcification involving the distal vertebral and distal internal carotid arteries bilaterally. No bony calvarial defect is seen. Visualized paranasal sinuses are clear. On soft tissue window settings, there is mild to moderate generalized volume loss. Old lacunar infarcts are seen in the left basal ganglia and right basal ganglia unchanged from comparison studies from September of 2019. There is concordant ventricular enlargement unchanged. There is no evidence of intracranial hemorrhage, new infarction, mass, extra-axial fluid collection, or midline shift. IMPRESSION: Vascular calcification and generalized volume loss. Old bilateral basal ganglia lacunar infarcts. Small vessel changes are noted as before. No acute intracranial abnormality.. <Electronically signed by Barry Medina > 06/25/20 0217
--- NOTE | 2020-06-25 13:22 | REP ---
INDICATION: ANOXIC BRAIN DAMAGE, AMS, SPONDYLOSIS. COMPARISON: Comparison CT study December 18, 2019.. TECHNIQUE: Helical scanning is acquired and overlapping 2 mm high resolution axial images were generated and reviewed at bone and soft tissue window settings. Coronal and sagittal multiplanar re-formations images are generated. FINDINGS: There is reversal of normal cervical lordosis. Cervical vertebral body heights are preserved. Alignment is otherwise normal. A mild dextroconvex curve is noted. There is degenerative disc narrowing at C3-C4 with mild bilateral uncovertebral spurring. Degenerative disc disease is noted at C4-5 and C5-6 with anterior osteophyte formation at these levels. Disc spaces are otherwise preserved. The canal is developmentally somewhat narrowed at C3-4 unchanged. At C4-5, soft tissue images suggest a moderate-sized disc herniation which appears to be compressing the spinal cord. This appears somewhat more prominent than on the 2019 study. No other evidence of disc protrusion is seen. The lung apices are clear. IMPRESSION: Degenerative spondylosis changes most pronounced at C3-4 C4-5 and to some degree C5-6. Central canal stenosis at C3-4. Right paracentral disc are herniation suspected at C4-5 producing some degree of cord compression.. <Electronically signed by Barry Medina > 06/25/20 1789
== END ==
LOC: M RAD 11:50
PROVIDERS: ATTEND Psychiatry & Neurology Neurology
DX: G93.1 Anoxic brain damage, not elsewhere classified (principal); R41.82 Altered mental status, unspecified; M43.02 Spondylolysis, cervical region; C79.51 Secondary malignant neoplasm of bone

== ENCOUNTER → 2020-06-30 | Outpatient (REF) | payer MEDICARE, OTHER ==
[2020-06-30 12:27] LABS: HEMATOCRIT 39.2 % (42.0-52.0); HEMOGLOBIN 11.4 g/dl (13.5-17.5); MEAN CORPUSCULAR HEMOGLOBIN 26.9 pg (27.0-33.0); MEAN CORPUSCULAR HGB CONC 29.1 g/dl (32.0-36.5); MEAN CORPUSCULAR VOLUME 92.5 fl (80.0-96.0); PLATELET COUNT, AUTOMATED 104 10^3/uL (150-450); RED BLOOD COUNT 4.24 10^6/uL (4.30-6.10); WHITE BLOOD COUNT 5.9 10^3/uL (4.0-10.0)
[2020-06-30 12:50] LABS: CREATININE FOR GFR 5.18 MG/DL (0.70-1.30); GLOMERULAR FILTRATION RATE 11.8 (>42)
[2020-06-30 12:51] LABS: ALBUMIN 3.4 GM/DL (3.2-5.2); BILIRUBIN,TOTAL 0.5 MG/DL (0.2-1.0); C REACTIVE PROTEIN QUANTITATIV 1.09 MG/DL (0.00-0.30); CALCIUM LEVEL 9.4 MG/DL (8.8-10.2); TOTAL PROTEIN 7.2 GM/DL (6.4-8.2)
== END ==
PROVIDERS: ATTEND Internal Medicine
DX: N18.6 End stage renal disease (principal)

== ENCOUNTER → 2020-08-20 | Outpatient (REF) | payer MEDICARE, OTHER, MEDICAID ==
[~2020-08-20] MED LIST changes: +ERGO500029 PO
[2020-08-20 11:15] LABS: HEMOGLOBIN 11.5 g/dl (13.5-17.5); MEAN CORPUSCULAR HEMOGLOBIN 27.4 pg (27.0-33.0); MEAN CORPUSCULAR HGB CONC 30.3 g/dl (32.0-36.5); MEAN CORPUSCULAR VOLUME 90.5 fl (80.0-96.0); PLATELET COUNT, AUTOMATED 139 10^3/uL (150-450); WHITE BLOOD COUNT 5.5 10^3/uL (4.0-10.0)
[2020-08-20 11:31] LABS: ALBUMIN 3.3 GM/DL (3.2-5.2); BILIRUBIN,TOTAL 0.5 MG/DL (0.2-1.0); C REACTIVE PROTEIN QUANTITATIV 1.32 MG/DL (0.00-0.30); CALCIUM LEVEL 9.4 MG/DL (8.8-10.2); CREATININE FOR GFR 4.74 MG/DL (0.70-1.30); POTASSIUM SERUM 3.7 MEQ/L (3.5-5.1); TOTAL PROTEIN 7.6 GM/DL (6.4-8.2)
== END ==
PROVIDERS: ATTEND Internal Medicine
DX: N18.6 End stage renal disease (principal)

== ENCOUNTER → 2020-09-03 | Outpatient (CLI) | payer MEDICARE, OTHER, MEDICAID ==
--- NOTE | 2020-09-03 15:13 | REP ---
INDICATION: PVD/ PT IS IN CT HOLDING AREA. COMPARISON: Comparison study June 02, 2020.. TECHNIQUE: Bilateral lower extremity arterial Doppler ultrasound. FINDINGS: Ankle brachial indices could not be obtained due to patient tolerance. Extensive bilateral plaquing is observed. In the right lower extremity monophasic arterial Doppler waveforms are noted in the posterior tibial artery distal to a proximal occlusion and in the distal anterior tibial artery. In the right popliteal artery there is a 3.7-1 stenosis. There is a 6-1 velocity ratio stenosis in the proximal anterior tibial artery on the right. In the left lower extremity, monophasic arterial Doppler waveforms are noted at and distal to the popliteal. The tibioperoneal trunk appears occluded on the left as on the prior study. There is a 4.7-1 velocity ratio stenosis in the left popliteal artery. Right lower extremity arterial Doppler velocity chart: Right TEMPLATE STORAGE CLERK PSV 91 cm/S Profundal 86 Proximal SFA 69 Mid SFA 58 Distal SFA 53 Popliteal 455/166 Proximal ZULEIMA 331 Tibial-peroneal trunk 23 Proximal GREENSKEEPER LABORER occluded/47 Distal GREENSKEEPER LABORER 28 Distal ZULEIMA 43 Left lower extremity arterial Doppler velocity chart: Left TEMPLATE STORAGE CLERK PSV 69 cm/S Profundal 49 Proximal SFA 35 Mid SFA 45 Distal SFA 66 Popliteal 29/135 Proximal ZULEIMA 49 Tibial-peroneal trunk occluded Proximal GREENSKEEPER LABORER 33 Distal GREENSKEEPER LABORER 35 Distal ZULEIMA 19 IMPRESSION: Moderate to severe plaquing. Occlusions noted in the tibial-peroneal trunk on the left and the proximal GREENSKEEPER LABORER on the right. Stenoses are observed as above. <Electronically signed by Barry Medina > 09/03/20 3092
== END ==
LOC: M RAD 13:23
PROVIDERS: ATTEND Physician Assistant
DX: I70.203 Unspecified atherosclerosis of native arteries of extremities, bilateral legs (principal)

== ENCOUNTER → 2020-09-23 | Outpatient (REF) | payer MEDICARE, OTHER, MEDICAID ==
[2020-09-23 10:37] LABS: HEMATOCRIT 39.1 % (42.0-52.0); HEMOGLOBIN 12.1 g/dl (13.5-17.5); MEAN CORPUSCULAR HEMOGLOBIN 28.6 pg (27.0-33.0); MEAN CORPUSCULAR HGB CONC 30.9 g/dl (32.0-36.5); MEAN CORPUSCULAR VOLUME 92.4 fl (80.0-96.0); PLATELET COUNT, AUTOMATED 171 10^3/uL (150-450); RED BLOOD COUNT 4.23 10^6/uL (4.30-6.10); WHITE BLOOD COUNT 5.7 10^3/uL (4.0-10.0)
[2020-09-23 11:10] LABS: ALBUMIN 3.5 GM/DL (3.2-5.2); BILIRUBIN,TOTAL 0.4 MG/DL (0.2-1.0); C REACTIVE PROTEIN QUANTITATIV 1.67 MG/DL (0.00-0.30); CALCIUM LEVEL 9.3 MG/DL (8.8-10.2); CREATININE FOR GFR 6.97 MG/DL (0.70-1.30); GLOMERULAR FILTRATION RATE 8.3 (>42); POTASSIUM SERUM 4.8 MEQ/L (3.5-5.1); TOTAL PROTEIN 7.5 GM/DL (6.4-8.2)
== END ==
PROVIDERS: ATTEND Internal Medicine
DX: N18.6 End stage renal disease (principal)

== ENCOUNTER → 2020-10-28 | Outpatient (REF) | payer MEDICARE, OTHER, MEDICAID ==
[~2020-10-28] MED LIST changes: -KLOR10TA76 PO; +POTA-136 PO
== END ==
PROVIDERS: ATTEND Internal Medicine
DX: Z53.8 Procedure and treatment not carried out for other reasons (principal)

== ENCOUNTER → 2020-10-29 | Outpatient (REF) | payer MEDICARE, OTHER, MEDICAID | PROVIDERS: ATTEND Internal Medicine | DX: N18.6 End stage renal disease (principal); Z53.8 Procedure and treatment not carried out for other reasons ==

== ENCOUNTER → 2020-11-02 | Outpatient (REF) | payer MEDICARE, OTHER, MEDICAID | PROVIDERS: ATTEND Internal Medicine | DX: N18.6 End stage renal disease (principal); Z53.8 Procedure and treatment not carried out for other reasons ==

== ENCOUNTER → 2020-11-23 | Outpatient (REF) | payer MEDICARE, OTHER, MEDICAID | PROVIDERS: ATTEND Internal Medicine | DX: Z53.8 Procedure and treatment not carried out for other reasons (principal) ==

== ENCOUNTER → 2021-01-20 | Outpatient (REF) | payer MEDICARE, OTHER, MEDICAID | PROVIDERS: ATTEND Internal Medicine | DX: D64.9 Anemia, unspecified (principal); Z53.9 Procedure and treatment not carried out, unspecified reason ==

== ENCOUNTER → 2021-03-10 | Outpatient (REF) | payer MEDICARE, OTHER, MEDICAID ==
[~2021-03-10] MED LIST changes: -LEVO250T12 PO; +LEVO250T3 PO; +LOSA100T45 PO; -LOSA100T50 PO; +POTA-151 PO; -POTA20TA6 PO
== END ==
PROVIDERS: ATTEND Internal Medicine
DX: E11.9 Type 2 diabetes mellitus without complications (principal); Z53.9 Procedure and treatment not carried out, unspecified reason

== ENCOUNTER → 2021-04-26 | Outpatient (REF) | payer MEDICARE, OTHER, MEDICAID | PROVIDERS: ATTEND Internal Medicine | DX: N18.9 Chronic kidney disease, unspecified (principal); Z53.9 Procedure and treatment not carried out, unspecified reason ==

== ENCOUNTER 2021-06-18 18:16 | Emergency (ER) | payer MEDICARE, OTHER, MEDICAID ==
[~2021-06-18] VITALS: Ht 172.7 cm; Wt 72.0 kg
[2021-06-18 21:15] VITALS: BP 172/92
== END 2021-06-18 22:28 | disposition home or self-care (01) ==
LOC: M ED 18:16
DX: T82.838A Hemorrhage due to vascular prosthetic devices, implants and grafts, initial encounter (principal); N18.6 End stage renal disease; Z99.2 Dependence on renal dialysis; Z95.1 Presence of aortocoronary bypass graft; Z79.899 Other long term (current) drug therapy; Z88.8 Allergy status to other drugs, medicaments and biological substances

== ENCOUNTER → 2021-06-28 | Outpatient (REF) | payer MEDICARE, OTHER, MEDICAID | PROVIDERS: ATTEND Internal Medicine | DX: N18.9 Chronic kidney disease, unspecified (principal); Z53.9 Procedure and treatment not carried out, unspecified reason ==

== ENCOUNTER → 2021-07-06 | Outpatient (REF) | payer MEDICARE, OTHER, MEDICAID ==
[~2021-07-06] MED LIST changes: +ALBU2.5V10 INH; -ALBU83IN INH
== END ==
PROVIDERS: ATTEND Internal Medicine
DX: R19.5 Other fecal abnormalities (principal); Z53.9 Procedure and treatment not carried out, unspecified reason

== ENCOUNTER 2021-08-09 19:11 | Emergency (ER) | payer MEDICARE, MEDICAID ==
[2021-08-09 21:30] VITALS: BP 156/72
== END 2021-08-09 21:53 | disposition home or self-care (01) ==
LOC: EDBD 19:11 → M ED 19:11
DX: T82.838A Hemorrhage due to vascular prosthetic devices, implants and grafts, initial encounter (principal); N18.6 End stage renal disease; Z99.2 Dependence on renal dialysis; E11.9 Type 2 diabetes mellitus without complications; G40.909 Epilepsy, unspecified, not intractable, without status epilepticus; E78.5 Hyperlipidemia, unspecified; Z79.84 Long term (current) use of oral hypoglycemic drugs; Z79.899 Other long term (current) drug therapy; Z88.8 Allergy status to other drugs, medicaments and biological substances

== ENCOUNTER → 2021-08-16 | Outpatient (CLI) | payer MEDICARE, MEDICAID | PROVIDERS: ATTEND Internal Medicine | DX: R05.9 Cough, unspecified (principal) ==

== ENCOUNTER → 2021-08-16 | Outpatient (REF) | payer MEDICARE, MEDICAID ==
[2021-08-16 12:24] LABS: BASO % 0.2 % (0.0-1.0); EOS % 0.1 % (0.0-3.0); HEMATOCRIT 33.4 % (42.0-52.0); HEMOGLOBIN 10.8 g/dl (13.5-17.5); LYMPH # 0.7 10^3/uL (1.5-5.0); LYMPH % 6.7 % (24.0-44.0); MEAN CORPUSCULAR HEMOGLOBIN 30.3 pg (27.0-33.0); MEAN CORPUSCULAR HGB CONC 32.3 g/dl (32.0-36.5); MEAN CORPUSCULAR VOLUME 93.8 fl (80.0-96.0); MONO # 0.7 10^3/uL (0.0-0.8); MONO % 6.3 % (2.0-8.0); NEUTROPHILS # 8.9 10^3/uL (1.5-8.5); NEUTROPHILS % 86.1 % (36.0-66.0); PLATELET COUNT, AUTOMATED 124 10^3/uL (150-450); RED BLOOD COUNT 3.56 10^6/uL (4.30-6.10); WHITE BLOOD COUNT 10.3 10^3/uL (4.0-10.0)
[2021-08-16 13:55] LABS: ALBUMIN 3.3 GM/DL (3.2-5.2); BILIRUBIN,TOTAL 0.5 MG/DL (0.2-1.0); CALCIUM LEVEL 8.8 MG/DL (8.8-10.2); CREATININE FOR GFR 9.81 MG/DL (0.70-1.30); GLOMERULAR FILTRATION RATE 5.6 (>42); POTASSIUM SERUM 5.8 MEQ/L (3.5-5.1); TOTAL PROTEIN 6.5 GM/DL (6.4-8.2)
== END ==
PROVIDERS: ATTEND Physician Assistant
DX: R50.9 Fever, unspecified (principal); R05.9 Cough, unspecified

== ENCOUNTER 2021-09-13 16:38 | Emergency (ER) | payer MEDICARE, MEDICAID ==
[~2021-09-13 16:38] MED LIST changes: +LEVO1TAB38 PO; -LEVO250T3 PO
[2021-09-13 17:50] LABS: BASO % 0.6 % (0.0-1.0); EOS # 0.2 10^3/uL (0.0-0.5); HEMATOCRIT 41.7 % (42.0-52.0); HEMOGLOBIN 13.1 g/dl (13.5-17.5); LYMPH # 1.2 10^3/uL (1.5-5.0); LYMPH % 22.9 % (24.0-44.0); MEAN CORPUSCULAR HEMOGLOBIN 30.8 pg (27.0-33.0); MEAN CORPUSCULAR HGB CONC 31.4 g/dl (32.0-36.5); MEAN CORPUSCULAR VOLUME 98.1 fl (80.0-96.0); MONO # 0.4 10^3/uL (0.0-0.8); NEUTROPHILS # 3.2 10^3/uL (1.5-8.5); NEUTROPHILS % 64.3 % (36.0-66.0); RED BLOOD COUNT 4.25 10^6/uL (4.30-6.10)
[2021-09-13 18:00] VITALS: BP 182/79
[2021-09-13 18:19] LABS: CALCIUM LEVEL 9.3 MG/DL (8.8-10.2); CREATININE FOR GFR 5.73 MG/DL (0.70-1.30); GLOMERULAR FILTRATION RATE 10.4 (>42); POTASSIUM SERUM 5.4 MEQ/L (3.5-5.1)
== END 2021-09-13 19:12 | disposition home or self-care (01) ==
LOC: M ED 16:38
DX: R41.89 Other symptoms and signs involving cognitive functions and awareness (principal); N18.6 End stage renal disease; Z99.2 Dependence on renal dialysis; Z86.73 Personal history of transient ischemic attack (TIA), and cerebral infarction without residual deficits; E11.9 Type 2 diabetes mellitus without complications; I10 Essential (primary) hypertension; Z79.899 Other long term (current) drug therapy; Z88.8 Allergy status to other drugs, medicaments and biological substances

== ENCOUNTER → 2021-10-27 | Outpatient (REF) | payer MEDICARE, MEDICAID ==
[~2021-10-27] MED LIST changes: +ALBU6.7H6 INH; -PROV108A INH
[2021-10-27 12:22] LABS: HEMATOCRIT 39.7 % (42.0-52.0); HEMOGLOBIN 12.4 g/dl (13.5-17.5); MEAN CORPUSCULAR HEMOGLOBIN 29.6 pg (27.0-33.0); MEAN CORPUSCULAR HGB CONC 31.2 g/dl (32.0-36.5); MEAN CORPUSCULAR VOLUME 94.7 fl (80.0-96.0); PLATELET COUNT, AUTOMATED 144 10^3/uL (150-450); RED BLOOD COUNT 4.19 10^6/uL (4.30-6.10); WHITE BLOOD COUNT 5.3 10^3/uL (4.0-10.0)
[2021-10-27 13:29] LABS: ALBUMIN 3.6 GM/DL (3.2-5.2); BILIRUBIN,TOTAL 0.4 MG/DL (0.2-1.0); C REACTIVE PROTEIN QUANTITATIV 0.7 MG/DL (0.00-0.30); CALCIUM LEVEL 9.4 MG/DL (8.8-10.2); CREATININE FOR GFR 12.2 MG/DL (0.70-1.30); GLOMERULAR FILTRATION RATE 4.4 (>42); POTASSIUM SERUM 6.3 MEQ/L (3.5-5.1); TOTAL PROTEIN 7.4 GM/DL (6.4-8.2)
== END ==
PROVIDERS: ATTEND Internal Medicine
DX: Z79.899 Other long term (current) drug therapy (principal); G40.909 Epilepsy, unspecified, not intractable, without status epilepticus

== ENCOUNTER → 2021-11-22 | Outpatient (REF) | payer MEDICARE, MEDICAID ==
[2021-11-22 10:32] LABS: HEMATOCRIT 33.7 % (42.0-52.0); HEMOGLOBIN 10.4 g/dl (13.5-17.5); MEAN CORPUSCULAR HEMOGLOBIN 30.6 pg (27.0-33.0); MEAN CORPUSCULAR HGB CONC 30.9 g/dl (32.0-36.5); MEAN CORPUSCULAR VOLUME 99.1 fl (80.0-96.0); WHITE BLOOD COUNT 4.8 10^3/uL (4.0-10.0)
[2021-11-22 11:30] LABS: PLATELET COUNT, AUTOMATED 97 10^3/uL (150-450)
[2021-11-22 11:35] LABS: ALBUMIN 3.1 GM/DL (3.2-5.2); BILIRUBIN,TOTAL 0.3 MG/DL (0.2-1.0); C REACTIVE PROTEIN QUANTITATIV 2.05 MG/DL (0.00-0.30); CREATININE FOR GFR 7.9 MG/DL (0.70-1.30); GLOMERULAR FILTRATION RATE 7.2 (>42); TOTAL PROTEIN 6.3 GM/DL (6.4-8.2)
== END ==
PROVIDERS: ATTEND Internal Medicine
DX: N18.9 Chronic kidney disease, unspecified (principal)

== ENCOUNTER → 2021-11-23 | Outpatient (REF) | payer MEDICARE, MEDICAID ==
[2021-11-23 11:52] LABS: CALCIUM LEVEL 9.5 MG/DL (8.8-10.2); CREATININE FOR GFR 5.52 MG/DL (0.70-1.30); GLOMERULAR FILTRATION RATE 10.9 (>42); POTASSIUM SERUM 4.7 MEQ/L (3.5-5.1)
== END ==
PROVIDERS: ATTEND Internal Medicine
DX: N18.9 Chronic kidney disease, unspecified (principal)

== ENCOUNTER → 2021-11-24 | Outpatient (REF) | payer MEDICARE, MEDICAID | PROVIDERS: ATTEND Internal Medicine | DX: N18.9 Chronic kidney disease, unspecified (principal); Z53.8 Procedure and treatment not carried out for other reasons ==

== ENCOUNTER → 2021-11-24 | Outpatient (REF) | payer MEDICARE, MEDICAID | PROVIDERS: ATTEND Internal Medicine | DX: R05.9 Cough, unspecified (principal) ==

== ENCOUNTER → 2021-12-20 | Outpatient (REF) | payer MEDICARE, MEDICAID ==
[~2021-12-20] MED LIST changes: +CLOP75TA99 PO; +ONDA-83 PO; -PLAV1TAB2 PO; +ROCA0.5C PO
== END ==
PROVIDERS: ATTEND Internal Medicine
DX: N18.9 Chronic kidney disease, unspecified (principal); Z53.8 Procedure and treatment not carried out for other reasons

== ENCOUNTER 2022-01-21 16:14 | Emergency (ER) | payer MEDICARE, MEDICAID ==
[~2022-01-21] VITALS: Ht 172.7 cm; Wt 77.0 kg
[~2022-01-21 16:14] MED LIST changes: -ONDA-83 PO; -ROCA0.5C PO
[2022-01-21] MEDS ORDERED: ONDANSETRON 4MG 2ML VIAL IV ONE (16:35)
[2022-01-21] MEDS ORDERED: PATIROMER SORBITEX CALCIUM 8.4 GM POWDER PACKET (VELTASSA) PO ONE (16:40)
[2022-01-21] MEDS ORDERED: DEXTROSE 50% 50ML SYRINGE IV ONE (16:55)
[2022-01-21] MEDS ORDERED: HumuLIN R (REGULAR) INSULIN (NovoLIN R) **100U/ML** PER UNIT IV ONE (16:55)
[2022-01-21] MEDS ORDERED: CALCIUM CHLORIDE 10% 1 GM/10 ML SYR IV ONE (16:55)
[2022-01-21 17:38] LABS: BASO % 0.4 % (0.0-1.0); EOS # 0.2 10^3/uL (0.0-0.5); EOS % 2.1 % (0.0-3.0); HEMATOCRIT 31.1 % (42.0-52.0); HEMOGLOBIN 9.5 g/dl (13.5-17.5); LYMPH % 13.2 % (24.0-44.0); MEAN CORPUSCULAR HEMOGLOBIN 30.3 pg (27.0-33.0); MEAN CORPUSCULAR HGB CONC 30.5 g/dl (32.0-36.5); MONO # 0.4 10^3/uL (0.0-0.8); PLATELET COUNT, AUTOMATED 146 10^3/uL (150-450); RED BLOOD COUNT 3.14 10^6/uL (4.30-6.10); WHITE BLOOD COUNT 7.6 10^3/uL (4.0-10.0)
[2022-01-21] MEDS ORDERED: amLODIPine 5 MG TAB PO STA (17:53)
[2022-01-21] MEDS ORDERED: CARVedilol 12.5 MG TAB PO STA (17:53)
[2022-01-21 18:32] LABS: RSV AMPLIFICATION NEGATIVE (NEGATIVE)
[2022-01-21] MEDS ORDERED: hydrALAZINE 20MG/ML 1ML VIAL IV STA (18:52)
[2022-01-21 19:14] VITALS: BP 187/86
[2022-01-21] MEDS ORDERED: ONDA-83 PO (19:59)
[2022-01-21] MEDS ORDERED: ROCA0.5C PO (19:59)
[2022-01-21] MEDS ORDERED: ACET-907 PO (19:59)
[2022-01-21] MEDS ORDERED: HOME MED LIST COMPLETE! XX SCH (20:05)
[2022-01-21 20:09] LABS: LIPASE 37 U/L (12-53)
[2022-01-21 20:11] LABS: BILIRUBIN,DIRECT 0.1 MG/DL (<0.4)
[2022-01-21 20:18] LABS: ALBUMIN 3.1 G/DL (3.2-5.2); ALKALINE PHOSPHATASE 112 U/L (46-116); ALT/SGPT < 9 U/L (7.0-40); AST/SGOT 12 U/L (<34); BILIRUBIN,TOTAL 0.3 MG/DL (0.3-1.2); BLOOD UREA NITROGEN 51 MG/DL (9-23); CALCIUM LEVEL 10.5 MG/DL (8.3-10.6); CARBON DIOXIDE LEVEL 24 MMOL/L (20-31); CHLORIDE LEVEL 104 MMOL/L (98-107); CREATININE FOR GFR 9.52 MG/DL (0.70-1.30); GLOMERULAR FILTRATION RATE 5.8 (>42); GLUCOSE, FASTING 66 MG/DL (74-106); POTASSIUM SERUM 5.5 MMOL/L (3.5-5.1); SODIUM LEVEL 140 MMOL/L (136-145); TOTAL PROTEIN 6.2 G/DL (5.7-8.2)
[2022-01-21 21:00] VITALS: BP 157/69
== END 2022-01-21 21:24 | disposition home or self-care (01) ==
LOC: M ED 16:14
DX: E87.6 Hypokalemia (principal); N18.6 End stage renal disease; Z99.2 Dependence on renal dialysis; R11.2 Nausea with vomiting, unspecified; R19.7 Diarrhea, unspecified; I50.9 Heart failure, unspecified; I10 Essential (primary) hypertension; E78.5 Hyperlipidemia, unspecified; R56.9 Unspecified convulsions; K21.9 Gastro-esophageal reflux disease without esophagitis; Z86.73 Personal history of transient ischemic attack (TIA), and cerebral infarction without residual deficits; F03.90 Unspecified dementia, unspecified severity, without behavioral disturbance, psychotic disturbance, mood disturbance, and anxiety; Z95.1 Presence of aortocoronary bypass graft; Z79.899 Other long term (current) drug therapy; Z88.8 Allergy status to other drugs, medicaments and biological substances
CPT/HCPCS: 71045; 80048; 80076; 80180; 83690; 83735; 85025; 85027; 87486; 87581; 87631; 87633; 87798; 93005; 93041; 96374; 96375; 99285; J0360; J1815; J2405

== ENCOUNTER → 2022-01-21 | Outpatient (REF) | payer MEDICARE, MEDICAID | PROVIDERS: ATTEND Internal Medicine | DX: R05.9 Cough, unspecified (principal) ==

== ENCOUNTER → 2022-01-21 | Outpatient (REF) | payer MEDICARE, MEDICAID ==
[2022-01-21 14:11] LABS: HEMATOCRIT 29.1 % (42.0-52.0); MEAN CORPUSCULAR HEMOGLOBIN 30.1 pg (27.0-33.0); MEAN CORPUSCULAR HGB CONC 30.9 g/dl (32.0-36.5); MEAN CORPUSCULAR VOLUME 97.3 fl (80.0-96.0); PLATELET COUNT, AUTOMATED 128 10^3/uL (150-450); RED BLOOD COUNT 2.99 10^6/uL (4.30-6.10); WHITE BLOOD COUNT 5.2 10^3/uL (4.0-10.0)
[2022-01-21 14:35] LABS: BILIRUBIN,DIRECT 0.1 MG/DL (<0.4)
[2022-01-21 14:43] LABS: ALBUMIN 3.4 G/DL (3.2-5.2); BILIRUBIN,TOTAL 0.3 MG/DL (0.3-1.2); CALCIUM LEVEL 10.1 MG/DL (8.3-10.6); CREATININE FOR GFR 9.44 MG/DL (0.70-1.30); GLOMERULAR FILTRATION RATE 5.9 (>42); POTASSIUM SERUM 6.6 MMOL/L (3.5-5.1); TOTAL PROTEIN 6.7 G/DL (5.7-8.2)
== END ==
PROVIDERS: ATTEND Internal Medicine
DX: R05.9 Cough, unspecified (principal); Z79.899 Other long term (current) drug therapy

== ENCOUNTER → 2022-01-24 | Outpatient (REF) | payer MEDICARE, MEDICAID ==
[~2022-01-24] MED LIST changes: +ONDA-83 PO; +ROCA0.5C PO
== END ==
PROVIDERS: ATTEND Internal Medicine
DX: N18.9 Chronic kidney disease, unspecified (principal)

== ENCOUNTER → 2022-02-21 | Outpatient (REF) | payer MEDICARE, MEDICAID | PROVIDERS: ATTEND Internal Medicine | DX: N18.9 Chronic kidney disease, unspecified (principal); Z53.8 Procedure and treatment not carried out for other reasons ==

== ENCOUNTER 2022-03-21 13:21 | Inpatient (IN) | payer MEDICARE, MEDICAID, OTHER ==
[2022-03-21] MEDS ORDERED: ISOVUE-370 76% 100ML VIAL As Ordered ONE (13:38)
[2022-03-21 14:18] LABS: BASO % 0.8 % (0.0-1.0); EOS # 0.3 10^3/uL (0.0-0.5); EOS % 5.1 % (0.0-3.0); HEMATOCRIT 40.6 % (42.0-52.0); HEMOGLOBIN 12.7 g/dl (13.5-17.5); LYMPH # 1.2 10^3/uL (1.5-5.0); LYMPH % 24.1 % (24.0-44.0); MEAN CORPUSCULAR HGB CONC 31.3 g/dl (32.0-36.5); MEAN CORPUSCULAR VOLUME 95.8 fl (80.0-96.0); MONO # 0.4 10^3/uL (0.0-0.8); MONO % 8.2 % (2.0-8.0); NEUTROPHILS % 61.4 % (36.0-66.0); PLATELET COUNT, AUTOMATED 136 10^3/uL (150-450); RED BLOOD COUNT 4.24 10^6/uL (4.30-6.10); WHITE BLOOD COUNT 4.9 10^3/uL (4.0-10.0)
[2022-03-21 14:29] LABS: INR 1.14; PROTHROMBIN TIME 14.8 SECONDS (12.5-14.5)
[2022-03-21 14:36] LABS: CALCIUM LEVEL 9.3 MG/DL (8.3-10.6); CK-MB VALUE MASS 1.4 NG/ML (<3.6); CREATININE FOR GFR 12.06 MG/DL (0.70-1.30); GLOMERULAR FILTRATION RATE 4.4 (>42); MB/CK RELATIVE INDEX 2.15 (< OR =4); POTASSIUM SERUM 6.1 MMOL/L (3.5-5.1)
[2022-03-21] MEDS ORDERED: DEXTROSE 50% 50ML SYRINGE IV ONE (14:40)
[2022-03-21] MEDS ORDERED: PATIROMER SORBITEX CALCIUM 8.4 GM POWDER PACKET (VELTASSA) PO ONE (14:40)
[2022-03-21] MEDS ORDERED: HumuLIN R (REGULAR) INSULIN (NovoLIN R) **100U/ML** PER UNIT IV ONE (14:40)
[2022-03-21] MEDS ORDERED: CALCIUM CHLORIDE 10% 1 GM/10 ML SYR IV ONE (14:40)
[2022-03-21 14:44] LABS: RSV AMPLIFICATION NEGATIVE (NEGATIVE)
[2022-03-21] MEDS ORDERED: ACETAMINOPHEN TAB 650MG DOSE (2X325MG) PO PRN (16:25)
[2022-03-21] MEDS ORDERED: HEPARIN 1,000UNITS/ML 10ML VIAL (FOR RADIOLOGY & DIALYSIS ONLY) XX SCH (17:20)
[2022-03-21] MEDS ORDERED: SODIUM CHLORIDE 0.9% 1000ML IV PRN (17:20)
[2022-03-21] MEDS ORDERED: HEPARIN 1,000UNITS/ML 10ML VIAL (FOR RADIOLOGY & DIALYSIS ONLY) IV PRN (17:20)
[2022-03-21] MEDS ORDERED: ATORVASTATIN 20 MG TAB PO SCH (21:00)
[2022-03-21] MEDS: HEPARIN SOD (PORCINE) 5000UNITS/ML 1ML VIAL/SYRINGE SC SCH ×2 (21:00→22:49)
[2022-03-21 21:51] LABS: CREATININE FOR GFR 6.38 MG/DL (0.70-1.30); GLOMERULAR FILTRATION RATE 9.2 (>42); POTASSIUM SERUM 3.8 MMOL/L (3.5-5.1)
[2022-03-21] MEDS ORDERED: HOME MED LIST COMPLETE! XX SCH (22:05)
[2022-03-21] MEDS ORDERED: BISACODYL 10MG SUPP PR PRN (22:15)
[2022-03-21] MEDS ORDERED: FLEET ENEMA PR PRN (22:15)
[2022-03-21] MEDS: CARVedilol 12.5 MG TAB PO SCH (22:48)
[2022-03-21] MEDS: levETIRAcetam 250MG TABLET (KEPPRA) PO SCH (22:48)
[2022-03-22] VITALS (10 sets, daily range): BP systolic 142–182; BP diastolic 64–88; O2SAT 93–97
[2022-03-22] MEDS ORDERED: hydrALAZINE 20MG/ML 1ML VIAL IV ONE (01:15)
[2022-03-22] MEDS: HEPARIN SOD (PORCINE) 5000UNITS/ML 1ML VIAL/SYRINGE SC SCH ×2 (06:00→13:03)
[2022-03-22] MEDS: (RENVELA) SEVELAMER **CARBONate** 800 MG TAB PO SCH ×2 (07:22→12:18)
[2022-03-22 07:29] LABS: HEMATOCRIT 38.2 % (42.0-52.0); MEAN CORPUSCULAR HEMOGLOBIN 30.2 pg (27.0-33.0); MEAN CORPUSCULAR HGB CONC 31.4 g/dl (32.0-36.5); PLATELET COUNT, AUTOMATED 112 10^3/uL (150-450); RED BLOOD COUNT 3.98 10^6/uL (4.30-6.10); WHITE BLOOD COUNT 7.4 10^3/uL (4.0-10.0)
[2022-03-22] MEDS: levETIRAcetam 250MG TABLET (KEPPRA) PO SCH (08:03)
[2022-03-22] MEDS: CARVedilol 12.5 MG TAB PO SCH (08:03)
[2022-03-22 08:40] LABS: ALBUMIN 3.5 G/DL (3.2-5.2); BILIRUBIN,TOTAL 0.4 MG/DL (0.3-1.2); CALCIUM LEVEL 9.7 MG/DL (8.3-10.6); CREATININE FOR GFR 7.7 MG/DL (0.70-1.30); GLOMERULAR FILTRATION RATE 7.4 (>42); POTASSIUM SERUM 4.9 MMOL/L (3.5-5.1); TOTAL PROTEIN 6.7 G/DL (5.7-8.2)
[2022-03-22] MEDS ORDERED: CLOPIDOGREL 75 MG TAB PO SCH (09:00)
[2022-03-22] MEDS ORDERED: GABAPENTIN 300 MG CAP PO SCH (09:00)
[2022-03-22] MEDS ORDERED: PANTOPRAZOLE 40MG TAB (PROTONIX) PO SCH (09:00)
[2022-03-22] MEDS ORDERED: CALCITRIOL 0.25 MCG CAP (S0169) PO SCH (09:00)
[2022-03-22 12:15] LABS: ABG BASE EXCESS -2.2 (-2.0-2.0); ABG HCO3 22.7 MEQ/L (22.0-26.0); ABG O2 SATURATION 94.6 % (95.0-99.0); ABG PARTIAL PRESSURE CO2 39.6 mmHg (35.0-45.0); ABG PARTIAL PRESSURE O2 75.6 mmHg (75.0-100.0); ABG STANDARD HCO3 22.6 MEQ/L (22.0-26.0); ABG pH (ARTERIAL) 7.377 UNITS (7.350-7.450)
== END 2022-03-22 15:38 | DRG 640 ==
LOC: M ED 13:21 → EDBD 13:21 → M ED INP 16:25 → ENRESERV 19:53 → CANRESERV 19:53 → M PCU 20:41
PROVIDERS: ADMIT Family Medicine; ATTEND Family Medicine
PROC: 5A1D70Z Performance of Urinary Filtration, Intermittent, Less than 6 Hours Per Day (ICD-10-PCS; principal; 2022-03-21)
DX: E87.5 Hyperkalemia (principal); N18.6 End stage renal disease; I12.0 Hypertensive chronic kidney disease with stage 5 chronic kidney disease or end stage renal disease; G93.40 Encephalopathy, unspecified; E11.22 Type 2 diabetes mellitus with diabetic chronic kidney disease; I25.10 Atherosclerotic heart disease of native coronary artery without angina pectoris; E11.51 Type 2 diabetes mellitus with diabetic peripheral angiopathy without gangrene; I73.9 Peripheral vascular disease, unspecified; Z86.73 Personal history of transient ischemic attack (TIA), and cerebral infarction without residual deficits; Z99.2 Dependence on renal dialysis; Z95.5 Presence of coronary angioplasty implant and graft; Z20.822 Contact with and (suspected) exposure to COVID-19; Z79.899 Other long term (current) drug therapy; Z88.6 Allergy status to analgesic agent; E21.3 Hyperparathyroidism, unspecified; D64.9 Anemia, unspecified; E78.5 Hyperlipidemia, unspecified; R13.10 Dysphagia, unspecified; Z66 Do not resuscitate

== ENCOUNTER → 2022-04-07 | Outpatient (REF) | payer MEDICARE, MEDICAID, OTHER | PROVIDERS: ATTEND Internal Medicine | DX: K52.9 Noninfective gastroenteritis and colitis, unspecified (principal) ==

== ENCOUNTER → 2022-04-25 | Outpatient (REF) | payer MEDICARE, MEDICAID, OTHER | PROVIDERS: ATTEND Internal Medicine | DX: N18.9 Chronic kidney disease, unspecified (principal); Z53.8 Procedure and treatment not carried out for other reasons ==

== ENCOUNTER 2022-05-06 16:19 | Emergency (ER) | payer MEDICARE, MEDICAID, OTHER ==
[~2022-05-06] VITALS: Ht 172.7 cm; Wt 70.0 kg
[2022-05-06 16:51] VITALS: BP 197/91
[2022-05-06 17:45] LABS: BASO % 0.5 % (0.0-1.0); EOS # 0.1 10^3/uL (0.0-0.5); EOS % 2.9 % (0.0-3.0); HEMATOCRIT 38.2 % (42.0-52.0); HEMOGLOBIN 12.1 g/dl (13.5-17.5); LYMPH # 0.8 10^3/uL (1.5-5.0); LYMPH % 19.8 % (24.0-44.0); MEAN CORPUSCULAR HEMOGLOBIN 29.2 pg (27.0-33.0); MEAN CORPUSCULAR HGB CONC 31.7 g/dl (32.0-36.5); MEAN CORPUSCULAR VOLUME 92.3 fl (80.0-96.0); MONO # 0.3 10^3/uL (0.0-0.8); MONO % 7.9 % (2.0-8.0); NEUTROPHILS # 2.6 10^3/uL (1.5-8.5); NEUTROPHILS % 68.6 % (36.0-66.0); PLATELET COUNT, AUTOMATED 106 10^3/uL (150-450); RED BLOOD COUNT 4.14 10^6/uL (4.30-6.10); VENOUS BASE EXCESS -2.3 (-2.0-2.0); VENOUS HCO3 25.2 MEQ/L (23.0-27.0); VENOUS O2 SATURATION 96.1 % (60.0-80.0); VENOUS PARTIAL PRESSURE CO2 54.8 mmHg (38.0-50.0); VENOUS PARTIAL PRESSURE O2 94.2 mmHg (30.0-50.0); VENOUS STANDARD HCO3 22.5 MEQ/L; VENOUS TOTAL CO2 26.9 MEQ/L (24.0-28.0); WHITE BLOOD COUNT 3.8 10^3/uL (4.0-10.0)
[2022-05-06 18:16] LABS: ALBUMIN 3.7 G/DL (3.2-5.2); ALKALINE PHOSPHATASE 90 U/L (46-116); ALT/SGPT < 9 U/L (7.0-40); AST/SGOT 14 U/L (<34); BILIRUBIN,DIRECT 0.1 MG/DL (<0.4); BILIRUBIN,TOTAL 0.3 MG/DL (0.3-1.2); BLOOD UREA NITROGEN 64 MG/DL (9-23); CALCIUM LEVEL 9.5 MG/DL (8.3-10.6); CARBON DIOXIDE LEVEL 25 MMOL/L (20-31); CHLORIDE LEVEL 101 MMOL/L (98-107); CREATININE FOR GFR 6.82 MG/DL (0.70-1.30); GLOMERULAR FILTRATION RATE 8.5 (>42); GLUCOSE, FASTING 133 MG/DL (74-106); POTASSIUM SERUM 5.1 MMOL/L (3.5-5.1); SODIUM LEVEL 136 MMOL/L (136-145); TOTAL PROTEIN 7.2 G/DL (5.7-8.2)
[2022-05-06 18:33] LABS: RSV AMPLIFICATION NEGATIVE (NEGATIVE)
== END 2022-05-06 19:17 | disposition home or self-care (01) ==
LOC: M ED 16:19 → EDBD 16:19 → M ED 19:17
DX: R40.4 Transient alteration of awareness (principal); N18.6 End stage renal disease; Z99.2 Dependence on renal dialysis; I25.10 Atherosclerotic heart disease of native coronary artery without angina pectoris; E11.9 Type 2 diabetes mellitus without complications; I10 Essential (primary) hypertension; E78.5 Hyperlipidemia, unspecified; Z86.73 Personal history of transient ischemic attack (TIA), and cerebral infarction without residual deficits

== ENCOUNTER 2022-05-18 14:36 | Inpatient (IN) | payer MEDICARE, MEDICAID, OTHER ==
[~2022-05-18] VITALS: Ht 172.7 cm; Wt 70.7 kg
[2022-05-18 15:50] LABS: BASO % 0.4 % (0.0-1.0); EOS # 0.1 10^3/uL (0.0-0.5); EOS % 2.9 % (0.0-3.0); HEMATOCRIT 36.3 % (42.0-52.0); HEMOGLOBIN 11.4 g/dl (13.5-17.5); LYMPH # 0.9 10^3/uL (1.5-5.0); LYMPH % 18.1 % (24.0-44.0); MEAN CORPUSCULAR HEMOGLOBIN 29.2 pg (27.0-33.0); MEAN CORPUSCULAR HGB CONC 31.4 g/dl (32.0-36.5); MEAN CORPUSCULAR VOLUME 93.1 fl (80.0-96.0); MONO # 0.2 10^3/uL (0.0-0.8); NEUTROPHILS # 3.5 10^3/uL (1.5-8.5); NEUTROPHILS % 73.2 % (36.0-66.0); PLATELET COUNT, AUTOMATED 159 10^3/uL (150-450); WHITE BLOOD COUNT 4.8 10^3/uL (4.0-10.0)
[2022-05-18] MEDS ORDERED: GABA-282 PO (16:22)
[2022-05-18] MEDS ORDERED: LIDO1CRE42 TOP (16:22)
[2022-05-18] MEDS ORDERED: HOME MED LIST COMPLETE! XX SCH (16:25)
[2022-05-18] MEDS ORDERED: BISACODYL 10MG SUPP PR PRN (16:50)
[2022-05-18] MEDS ORDERED: GABAPENTIN 300 MG CAP PO ONE (16:50)
[2022-05-18] MEDS ORDERED: ACETAMINOPHEN TAB 650MG DOSE (2X325MG) PO ONE (16:50)
[2022-05-18] MEDS ORDERED: EMLA CREAM 5GM TUBE (LIDOCAINE/PRILOCAINE) TOP PRN (16:50)
[2022-05-18] MEDS ORDERED: FLEET ENEMA PR PRN (16:50)
[2022-05-18 17:19] LABS: CALCIUM LEVEL 9.3 MG/DL (8.3-10.6); CREATININE FOR GFR 12.96 MG/DL (0.70-1.30); GLOMERULAR FILTRATION RATE 4.1 (>42); MAGNESIUM LEVEL 1.6 MG/DL (1.8-2.4); PHOSPHORUS LEVEL 5.8 MG/DL (2.4-5.1); POTASSIUM SERUM 6.5 MMOL/L (3.5-5.1)
[2022-05-18] MEDS ORDERED: PATIROMER SORBITEX CALCIUM 8.4 GM POWDER PACKET (VELTASSA) PO ONE ×2 (17:20→19:05)
[2022-05-18] MEDS ORDERED: SODIUM BICARBONATE 8.4% INJ 50ML SYRINGE IV ONE (17:20)
[2022-05-18] MEDS ORDERED: HumuLIN R (REGULAR) INSULIN (NovoLIN R) **100U/ML** PER UNIT IV ONE (17:20)
[2022-05-18] MEDS ORDERED: CALCIUM CHLORIDE 10% 1 GM/10 ML SYR IV ONE (17:20)
[2022-05-18] MEDS ORDERED: DEXTROSE 50% 50ML SYRINGE IV ONE (17:20)
[2022-05-18] MEDS: hydrALAZINE 20MG/ML 1ML VIAL IV SCH ×2 (18:55→22:40)
[2022-05-18] MEDS ORDERED: CALCIUM GLUCONATE 1,000 MG in D5W MINI-BAG PLUS 100 ML IV ONE (19:05)
[2022-05-18] MEDS: LABETALOL 100MG/20ML VIAL IV STA ×2 (19:13→21:43)
[2022-05-18] MEDS ORDERED: HYDROMORPHONE HCL 0.5 MG/ 0.5 ML SYRINGE IV ONE (19:15)
[2022-05-18] MEDS ORDERED: cloNIDine 0.2 MG TAB PO ONE (19:30)
[2022-05-18] MEDS ORDERED: MAG SULF 1GM/100ML (MAG RUN) 1 GM in IV 1 EA IV ONE (20:00)
[2022-05-18 21:15] VITALS: BP 182/80
[2022-05-18] MEDS: (RENVELA) SEVELAMER **CARBONate** 800 MG TAB PO SCH (21:41)
[2022-05-18] MEDS: levETIRAcetam 250MG TABLET (KEPPRA) PO SCH (21:42)
[2022-05-18] MEDS: ATORVASTATIN 20 MG TAB PO SCH (21:42)
[2022-05-18] MEDS: CARVedilol 12.5 MG TAB PO SCH (21:42)
[2022-05-18 21:56] VITALS: BP 179/78
[2022-05-18] MEDS: LIDOCAINE 5% (LIDODERM) PATCH TD SCH (22:00)
[2022-05-18 22:03] VITALS: BP 170/74
[2022-05-18 22:31] VITALS: BP 176/74
[2022-05-18 23:12] VITALS: BP 152/60
[2022-05-18] MEDS: cloNIDine 0.1MG TABLET PO SCH (23:51)
[2022-05-18] MEDS: ISOSORBIDE DIN. (ISORDIL) 20 MG TAB PO SCH (23:52)
[2022-05-19] VITALS (8 sets, daily range): BP systolic 126–166; BP diastolic 52–70
[2022-05-19] MEDS ORDERED: HEPARIN 1,000UNITS/ML 10ML VIAL (FOR RADIOLOGY & DIALYSIS ONLY) XX SCH (00:25)
[2022-05-19] MEDS ORDERED: HEPARIN 1,000UNITS/ML 10ML VIAL (FOR RADIOLOGY & DIALYSIS ONLY) IV PRN (00:25)
[2022-05-19] MEDS ORDERED: SODIUM CHLORIDE 0.9% 1000ML IV PRN (00:25)
[2022-05-19] MEDS: hydrALAZINE 20MG/ML 1ML VIAL IV SCH ×5 (02:29→22:34)
[2022-05-19] MEDS ORDERED: hydrALAZINE 20MG/ML 1ML VIAL IV ONE (06:00)
[2022-05-19] MEDS: cloNIDine 0.1MG TABLET PO SCH ×3 (06:00→16:57)
[2022-05-19] MEDS: ISOSORBIDE DIN. (ISORDIL) 20 MG TAB PO SCH ×3 (06:00→16:57)
[2022-05-19 06:16] LABS: HEMATOCRIT 26.9 % (42.0-52.0); MEAN CORPUSCULAR HEMOGLOBIN 29.7 pg (27.0-33.0); MEAN CORPUSCULAR VOLUME 92.8 fl (80.0-96.0); PLATELET COUNT, AUTOMATED 110 10^3/uL (150-450); WHITE BLOOD COUNT 4.1 10^3/uL (4.0-10.0)
[2022-05-19 06:17] LABS: HEMOGLOBIN 8.6 g/dl (13.5-17.5)
[2022-05-19 06:19] LABS: INR 1.15; PROTHROMBIN TIME 14.9 SECONDS (12.5-14.5)
[2022-05-19] MEDS: levETIRAcetam 250MG TABLET (KEPPRA) PO SCH ×2 (06:19→21:39)
[2022-05-19 06:20] LABS: PARTIAL THROMBOPLASTIN TIME 35.1 SECONDS (24.8-34.2)
[2022-05-19 07:19] LABS: CALCIUM LEVEL 10.1 MG/DL (8.3-10.6); CREATININE FOR GFR 13.01 MG/DL (0.70-1.30); POTASSIUM SERUM 6.1 MMOL/L (3.5-5.1)
[2022-05-19] MEDS: (RENVELA) SEVELAMER **CARBONate** 800 MG TAB PO SCH ×3 (08:00→17:10)
[2022-05-19] MEDS ORDERED: HEPARIN 1,000UNITS/ML 10ML VIAL (FOR RADIOLOGY & DIALYSIS ONLY) As Ordered ONE (08:08)
[2022-05-19] MEDS ORDERED: LIDOCAINE W/EPINEPHRINE 1% 20ML VIAL As Ordered ONE (08:09)
[2022-05-19] MEDS ORDERED: ceFAZolin 2 GM/D5W 50 ML IV BAG As Ordered ONE (08:12)
[2022-05-19] MEDS ORDERED: MIDAZOLAM INJ 2MG/2ML VIAL As Ordered ONE (08:18)
[2022-05-19] MEDS ORDERED: fentaNYL 100 MCG/2 ML INJECTION As Ordered ONE (08:18)
[2022-05-19] MEDS ORDERED: ceFAZolin SOD 2 GM in IV 1 EA IV ONE (08:25)
[2022-05-19] MEDS: CALCITRIOL 0.25 MCG CAP (S0169) PO SCH (10:37)
[2022-05-19] MEDS: PANTOPRAZOLE 40MG TAB (PROTONIX) PO SCH (10:38)
[2022-05-19] MEDS: GABAPENTIN 300 MG CAP PO SCH (10:38)
[2022-05-19] MEDS: CLOPIDOGREL 75 MG TAB PO SCH (10:38)
[2022-05-19] MEDS: CARVedilol 12.5 MG TAB PO SCH ×2 (10:39→21:39)
[2022-05-19] MEDS: ATORVASTATIN 20 MG TAB PO SCH (21:39)
[2022-05-19] MEDS ORDERED: ONDANSETRON 4MG 2ML VIAL IV ONE (22:05)
[2022-05-20] VITALS (8 sets, daily range): BP systolic 112–150; BP diastolic 56–93
[2022-05-20] MEDS: ISOSORBIDE DIN. (ISORDIL) 20 MG TAB PO SCH ×4 (00:07→17:48)
[2022-05-20] MEDS: cloNIDine 0.1MG TABLET PO SCH ×4 (00:10→17:48)
[2022-05-20 00:11] LABS: CALCIUM LEVEL 9.2 MG/DL (8.3-10.6); CREATININE FOR GFR 6.18 MG/DL (0.70-1.30); GLOMERULAR FILTRATION RATE 9.5 (>42); POTASSIUM SERUM 3.7 MMOL/L (3.5-5.1)
[2022-05-20] MEDS: LIDOCAINE 5% (LIDODERM) PATCH TD SCH ×2 (00:12→20:40)
[2022-05-20] MEDS: hydrALAZINE 20MG/ML 1ML VIAL IV SCH ×3 (02:23→10:00)
[2022-05-20 06:21] LABS: HEMATOCRIT 30.9 % (42.0-52.0); HEMOGLOBIN 9.8 g/dl (13.5-17.5); MEAN CORPUSCULAR HEMOGLOBIN 29.5 pg (27.0-33.0); MEAN CORPUSCULAR HGB CONC 31.7 g/dl (32.0-36.5); MEAN CORPUSCULAR VOLUME 93.1 fl (80.0-96.0); PLATELET COUNT, AUTOMATED 109 10^3/uL (150-450); RED BLOOD COUNT 3.32 10^6/uL (4.30-6.10); WHITE BLOOD COUNT 6.2 10^3/uL (4.0-10.0)
[2022-05-20] MEDS: (RENVELA) SEVELAMER **CARBONate** 800 MG TAB PO SCH ×3 (08:00→17:49)
[2022-05-20] MEDS ORDERED: ISOVUE-300 61% 100ML VIAL As Ordered ONE (08:31)
[2022-05-20] MEDS ORDERED: fentaNYL 100 MCG/2 ML INJECTION As Ordered ONE ×2 (08:31→11:01)
[2022-05-20] MEDS ORDERED: MIDAZOLAM INJ 2MG/2ML VIAL As Ordered ONE (08:32)
[2022-05-20] MEDS ORDERED: HEPARIN 1,000UNITS/ML 10ML VIAL (FOR RADIOLOGY & DIALYSIS ONLY) As Ordered ONE (08:32)
[2022-05-20] MEDS ORDERED: LIDOCAINE 1% MDV 20ML VIAL As Ordered ONE (08:32)
[2022-05-20] MEDS ORDERED: ceFAZolin 2 GM/D5W 50 ML IV BAG As Ordered ONE (09:13)
[2022-05-20] MEDS ORDERED: ALTEPLASE 2MG/2ML VIAL As Ordered ONE (09:14)
[2022-05-20] MEDS: CLOPIDOGREL 75 MG TAB PO SCH (13:00)
[2022-05-20] MEDS: PANTOPRAZOLE 40MG TAB (PROTONIX) PO SCH (13:00)
[2022-05-20] MEDS: CALCITRIOL 0.25 MCG CAP (S0169) PO SCH (13:00)
[2022-05-20] MEDS: CARVedilol 12.5 MG TAB PO SCH ×2 (13:01→20:40)
[2022-05-20] MEDS: levETIRAcetam 250MG TABLET (KEPPRA) PO SCH ×2 (13:01→20:39)
[2022-05-20] MEDS: GABAPENTIN 300 MG CAP PO SCH (13:01)
[2022-05-20] MEDS: **hydrALAZINE HCL** 25 MG TAB PO SCH (17:48)
[2022-05-20] MEDS: ATORVASTATIN 20 MG TAB PO SCH (20:39)
[2022-05-21] VITALS (11 sets, daily range): BP systolic 82–149; BP diastolic 38–71
[2022-05-21] MEDS: **hydrALAZINE HCL** 25 MG TAB PO SCH ×2 (06:00)
[2022-05-21] MEDS: ISOSORBIDE DIN. (ISORDIL) 20 MG TAB PO SCH ×2 (06:00)
[2022-05-21] MEDS ORDERED: SODIUM CHLORIDE 0.9% 1000ML IV PRN (06:10)
[2022-05-21] MEDS ORDERED: HEPARIN 1,000UNITS/ML 10ML VIAL (FOR RADIOLOGY & DIALYSIS ONLY) XX SCH (06:10)
[2022-05-21] MEDS ORDERED: HEPARIN 1,000UNITS/ML 10ML VIAL (FOR RADIOLOGY & DIALYSIS ONLY) IV PRN (06:10)
[2022-05-21] MEDS: cloNIDine 0.1MG TABLET PO SCH ×2 (06:20)
[2022-05-21] MEDS: levETIRAcetam 250MG TABLET (KEPPRA) PO SCH (07:09)
[2022-05-21] MEDS: CALCITRIOL 0.25 MCG CAP (S0169) PO SCH (07:09)
[2022-05-21] MEDS: (RENVELA) SEVELAMER **CARBONate** 800 MG TAB PO SCH ×3 (07:10→18:00)
[2022-05-21] MEDS: PANTOPRAZOLE 40MG TAB (PROTONIX) PO SCH (07:10)
[2022-05-21] MEDS: GABAPENTIN 300 MG CAP PO SCH (07:10)
[2022-05-21] MEDS: CARVedilol 12.5 MG TAB PO SCH (07:10)
[2022-05-21] MEDS: CLOPIDOGREL 75 MG TAB PO SCH (07:10)
[2022-05-21] MEDS ORDERED: NS 250 ML IV ONE ×2 (07:50)
[2022-05-21] MEDS ORDERED: NS 1,000 ML IV ONE (08:10)
[2022-05-21 08:14] LABS: ABG BASE EXCESS -5.6 (-2.0-2.0); ABG HCO3 19.9 MEQ/L (22.0-26.0); ABG O2 SATURATION 94.4 % (95.0-99.0); ABG PARTIAL PRESSURE CO2 39.2 mmHg (35.0-45.0); ABG PARTIAL PRESSURE O2 79.7 mmHg (75.0-100.0); ABG STANDARD HCO3 19.7 MEQ/L (22.0-26.0); ABG TOTAL CO2 21.1 MEQ/L (23.0-31.0); ABG pH (ARTERIAL) 7.324 UNITS (7.350-7.450)
[2022-05-21 08:28] LABS: HEMATOCRIT 26.7 % (42.0-52.0); HEMOGLOBIN 8.3 g/dl (13.5-17.5); MEAN CORPUSCULAR HEMOGLOBIN 29.3 pg (27.0-33.0); MEAN CORPUSCULAR HGB CONC 31.1 g/dl (32.0-36.5); MEAN CORPUSCULAR VOLUME 94.3 fl (80.0-96.0); RED BLOOD COUNT 2.83 10^6/uL (4.30-6.10)
[2022-05-21 08:32] LABS: CK-MB VALUE MASS 6.2 NG/ML (<3.6)
[2022-05-21 08:35] LABS: CPK CREATINE PHOSPHOKINASE 403 U/L (46-171); MB/CK RELATIVE INDEX 1.53 (< OR =4)
[2022-05-21 08:42] LABS: ALBUMIN 2.9 G/DL (3.2-5.2); ALKALINE PHOSPHATASE 55 U/L (46-116); ALT/SGPT < 9 U/L (7.0-40); AST/SGOT 30 U/L (<34); BILIRUBIN,TOTAL < 0.2 MG/DL (0.3-1.2); BLOOD UREA NITROGEN 63 MG/DL (9-23); CALCIUM LEVEL 8.7 MG/DL (8.3-10.6); CARBON DIOXIDE LEVEL 20 MMOL/L (20-31); CHLORIDE LEVEL 101 MMOL/L (98-107); CREATININE FOR GFR 8.86 MG/DL (0.70-1.30); GLOMERULAR FILTRATION RATE 6.3 (>42); GLUCOSE, FASTING 59 MG/DL (74-106); MAGNESIUM LEVEL 1.7 MG/DL (1.8-2.4); POTASSIUM SERUM 4.6 MMOL/L (3.5-5.1); SODIUM LEVEL 135 MMOL/L (136-145); TOTAL PROTEIN 5.6 G/DL (5.7-8.2)
[2022-05-21 08:52] LABS: PLATELET COUNT, AUTOMATED 88 10^3/uL (150-450)
[2022-05-21] MEDS ORDERED: ASPIRIN 81MG CHEW TABLET PO ONE (09:10)
[2022-05-21] MEDS ORDERED: ATORVASTATIN 20 MG TAB PO ONE (09:30)
[2022-05-21] MEDS: HEPARIN SOD (PORCINE) 5000UNITS/ML 1ML VIAL/SYRINGE SQ SCH ×3 (11:33→20:00)
[2022-05-21] MEDS: levETIRAcetam INJection 250 MG in D5W 100 ML IV SCH (19:55)
[2022-05-21] MEDS: LIDOCAINE 5% (LIDODERM) PATCH TD SCH (19:56)
[2022-05-22] VITALS (8 sets, daily range): BP systolic 126–172; BP diastolic 56–92
[2022-05-22] MEDS: HEPARIN SOD (PORCINE) 5000UNITS/ML 1ML VIAL/SYRINGE SQ SCH ×3 (06:30→20:47)
[2022-05-22 07:36] LABS: BASO % 0.3 % (0.0-1.0); EOS # 0.1 10^3/uL (0.0-0.5); EOS % 3.5 % (0.0-3.0); HEMATOCRIT 25.6 % (42.0-52.0); LYMPH # 0.6 10^3/uL (1.5-5.0); LYMPH % 19.7 % (24.0-44.0); MEAN CORPUSCULAR HEMOGLOBIN 29.1 pg (27.0-33.0); MEAN CORPUSCULAR HGB CONC 31.3 g/dl (32.0-36.5); MEAN CORPUSCULAR VOLUME 93.1 fl (80.0-96.0); MONO # 0.4 10^3/uL (0.0-0.8); MONO % 12.6 % (2.0-8.0); NEUTROPHILS % 63.6 % (36.0-66.0); RED BLOOD COUNT 2.75 10^6/uL (4.30-6.10); WHITE BLOOD COUNT 3.1 10^3/uL (4.0-10.0)
[2022-05-22 07:39] LABS: PLATELET COUNT, AUTOMATED 87 10^3/uL (150-450)
[2022-05-22 07:58] LABS: CPK CREATINE PHOSPHOKINASE 168 U/L (46-171)
[2022-05-22 08:00] LABS: ALBUMIN 2.8 G/DL (3.2-5.2); ALKALINE PHOSPHATASE 54 U/L (46-116); ALT/SGPT < 9 U/L (7.0-40); AST/SGOT 30 U/L (<34); BILIRUBIN,TOTAL 0.3 MG/DL (0.3-1.2); BLOOD UREA NITROGEN 25 MG/DL (9-23); CALCIUM LEVEL 8.5 MG/DL (8.3-10.6); CARBON DIOXIDE LEVEL 24 MMOL/L (20-31); CHLORIDE LEVEL 101 MMOL/L (98-107); CK-MB VALUE MASS 1.8 NG/ML (<3.6); CREATININE FOR GFR 5.12 MG/DL (0.70-1.30); GLOMERULAR FILTRATION RATE 11.8 (>42); GLUCOSE, FASTING 66 MG/DL (74-106); MB/CK RELATIVE INDEX 1.07 (< OR =4); POTASSIUM SERUM 3.6 MMOL/L (3.5-5.1); SODIUM LEVEL 136 MMOL/L (136-145); TOTAL PROTEIN 5.6 G/DL (5.7-8.2)
[2022-05-22] MEDS: LIDOCAINE 5% (LIDODERM) PATCH TD SCH (08:47)
[2022-05-22] MEDS: levETIRAcetam INJection 250 MG in D5W 100 ML IV SCH ×2 (08:47→20:47)
[2022-05-22] MEDS: CLOPIDOGREL 75 MG TAB PO SCH (08:48)
[2022-05-22] MEDS: CALCITRIOL 0.25 MCG CAP (S0169) PO SCH (08:48)
[2022-05-22] MEDS: (RENVELA) SEVELAMER **CARBONate** 800 MG TAB PO SCH ×3 (08:48→17:49)
[2022-05-22] MEDS: PANTOPRAZOLE 40MG TAB (PROTONIX) PO SCH (08:48)
[2022-05-22] MEDS ORDERED: ASPIRIN 81MG CHEW TABLET PO SCH (09:00)
[2022-05-22] MEDS ORDERED: LORazepam 2 MG/ML 1ML VIAL IV PRN (09:05)
[2022-05-22] MEDS ORDERED: DARBEPOETIN 100MCG/0.5ML *DIALYSIS* SYRINGE IV SCH (09:30)
[2022-05-22] MEDS: CARVedilol 12.5 MG TAB PO SCH ×2 (09:55→20:46)
[2022-05-22] MEDS: ISOSORBIDE DIN (ISORDIL) 10MG TAB PO SCH ×2 (12:16→17:00)
[2022-05-22 12:37] LABS: CK-MB VALUE MASS 1.8 NG/ML (<3.6)
[2022-05-22 12:42] LABS: MB/CK RELATIVE INDEX 1.11 (< OR =4)
[2022-05-22 14:12] LABS: MAGNESIUM LEVEL 1.7 MG/DL (1.8-2.4)
[2022-05-22] MEDS ORDERED: MAG SULF 1GM/100ML (MAG RUN) 1 GM in IV 1 EA IV ONE (15:00)
[2022-05-22] MEDS ORDERED: MAGNESIUM OXIDE 400MG TAB (MAG-OX) PO ONE (15:10)
[2022-05-22] MEDS: ATORVASTATIN 20 MG TAB PO SCH (20:47)
[2022-05-22 21:33] LABS: CK-MB VALUE MASS 1.5 NG/ML (<3.6)
[2022-05-22 21:34] LABS: MB/CK RELATIVE INDEX 1.38 (< OR =4)
[2022-05-23] MEDS ORDERED: HEPARIN 1,000UNITS/ML 10ML VIAL (FOR RADIOLOGY & DIALYSIS ONLY) IV PRN (06:00)
[2022-05-23] MEDS ORDERED: SODIUM CHLORIDE 0.9% 1000ML IV PRN (06:00)
[2022-05-23] MEDS ORDERED: HEPARIN 1,000UNITS/ML 10ML VIAL (FOR RADIOLOGY & DIALYSIS ONLY) XX SCH (06:00)
[2022-05-23] MEDS ORDERED: LIDOCAINE 1% SDV 5ML VIAL SC PRN (06:00)
[2022-05-23] MEDS: HEPARIN SOD (PORCINE) 5000UNITS/ML 1ML VIAL/SYRINGE SQ SCH (06:00)
[2022-05-23 06:14] VITALS: BP 138/64
[2022-05-23] MEDS: ISOSORBIDE DIN (ISORDIL) 10MG TAB PO SCH ×3 (06:15→18:16)
[2022-05-23 07:47] VITALS: BP 147/67
[2022-05-23] MEDS: (RENVELA) SEVELAMER **CARBONate** 800 MG TAB PO SCH ×3 (07:52→17:57)
[2022-05-23] MEDS: CALCITRIOL 0.25 MCG CAP (S0169) PO SCH (07:53)
[2022-05-23] MEDS: CARVedilol 12.5 MG TAB PO SCH ×2 (08:27→20:01)
[2022-05-23] MEDS: levETIRAcetam INJection 250 MG in D5W 100 ML IV SCH ×2 (08:27→20:54)
[2022-05-23] MEDS: PANTOPRAZOLE 40MG TAB (PROTONIX) PO SCH (08:27)
[2022-05-23] MEDS: CLOPIDOGREL 75 MG TAB PO SCH (08:27)
[2022-05-23 13:30] VITALS: BP 162/68
[2022-05-23 16:33] VITALS: BP 161/70
[2022-05-23 20:00] VITALS: BP 141/63
[2022-05-23] MEDS: LIDOCAINE 5% (LIDODERM) PATCH TD SCH (20:00)
[2022-05-23] MEDS: ATORVASTATIN 20 MG TAB PO SCH (20:01)
[2022-05-24 04:00] VITALS: BP 165/68
[2022-05-24 05:57] LABS: HEMATOCRIT 27.3 % (42.0-52.0); HEMOGLOBIN 8.6 g/dl (13.5-17.5); MEAN CORPUSCULAR HEMOGLOBIN 29.6 pg (27.0-33.0); MEAN CORPUSCULAR HGB CONC 31.5 g/dl (32.0-36.5); MEAN CORPUSCULAR VOLUME 93.8 fl (80.0-96.0); PLATELET COUNT, AUTOMATED 103 10^3/uL (150-450); RED BLOOD COUNT 2.91 10^6/uL (4.30-6.10); WHITE BLOOD COUNT 3.5 10^3/uL (4.0-10.0)
[2022-05-24] MEDS: ISOSORBIDE DIN (ISORDIL) 10MG TAB PO SCH ×3 (06:16→17:00)
[2022-05-24 07:20] VITALS: BP 140/60
[2022-05-24] MEDS: CARVedilol 12.5 MG TAB PO SCH ×2 (08:35→21:47)
[2022-05-24] MEDS: CALCITRIOL 0.25 MCG CAP (S0169) PO SCH (08:35)
[2022-05-24] MEDS: CLOPIDOGREL 75 MG TAB PO SCH (08:35)
[2022-05-24] MEDS: (RENVELA) SEVELAMER **CARBONate** 800 MG TAB PO SCH ×3 (08:35→17:25)
[2022-05-24] MEDS: PANTOPRAZOLE 40MG TAB (PROTONIX) PO SCH (08:36)
[2022-05-24] MEDS: levETIRAcetam INJection 250 MG in D5W 100 ML IV SCH (09:40)
[2022-05-24 12:42] VITALS: BP 130/62
[2022-05-24] MEDS: HEPARIN SOD (PORCINE) 5000UNITS/ML 1ML VIAL/SYRINGE SQ SCH ×2 (14:14→21:34)
[2022-05-24] MEDS: LIDOCAINE 5% (LIDODERM) PATCH TD SCH (21:33)
[2022-05-24] MEDS: ATORVASTATIN 20 MG TAB PO SCH (21:34)
[2022-05-24] MEDS: levETIRAcetam 250MG TABLET (KEPPRA) PO SCH (21:34)
[2022-05-24 22:00] VITALS: BP 132/52
[2022-05-25 04:40] VITALS: BP 150/54
[2022-05-25] MEDS: CALCITRIOL 0.25 MCG CAP (S0169) PO SCH (05:19)
[2022-05-25] MEDS: CARVedilol 12.5 MG TAB PO SCH (05:20)
[2022-05-25] MEDS: CLOPIDOGREL 75 MG TAB PO SCH (05:21)
[2022-05-25] MEDS: PANTOPRAZOLE 40MG TAB (PROTONIX) PO SCH (05:21)
[2022-05-25] MEDS: levETIRAcetam 250MG TABLET (KEPPRA) PO SCH (05:21)
[2022-05-25] MEDS: (RENVELA) SEVELAMER **CARBONate** 800 MG TAB PO SCH ×2 (05:22→12:30)
[2022-05-25] MEDS: HEPARIN SOD (PORCINE) 5000UNITS/ML 1ML VIAL/SYRINGE SQ SCH ×2 (05:23→13:02)
[2022-05-25] MEDS: ISOSORBIDE DIN (ISORDIL) 10MG TAB PO SCH ×2 (05:25→12:00)
[2022-05-25] MEDS ORDERED: HEPARIN 1,000UNITS/ML 10ML VIAL (FOR RADIOLOGY & DIALYSIS ONLY) IV PRN (06:00)
[2022-05-25] MEDS ORDERED: SODIUM CHLORIDE 0.9% 1000ML IV PRN (06:00)
[2022-05-25] MEDS ORDERED: HEPARIN 1,000UNITS/ML 10ML VIAL (FOR RADIOLOGY & DIALYSIS ONLY) XX SCH (06:00)
[2022-05-25 06:38] LABS: HEMATOCRIT 27.4 % (42.0-52.0); HEMOGLOBIN 8.5 g/dl (13.5-17.5); MEAN CORPUSCULAR HEMOGLOBIN 28.8 pg (27.0-33.0); MEAN CORPUSCULAR VOLUME 92.9 fl (80.0-96.0); PLATELET COUNT, AUTOMATED 112 10^3/uL (150-450); RED BLOOD COUNT 2.95 10^6/uL (4.30-6.10); WHITE BLOOD COUNT 3.7 10^3/uL (4.0-10.0)
[2022-05-25 07:01] LABS: CALCIUM LEVEL 9.3 MG/DL (8.3-10.6); CREATININE FOR GFR 5.86 MG/DL (0.70-1.30); GLOMERULAR FILTRATION RATE 10.1 (>42); MAGNESIUM LEVEL 1.9 MG/DL (1.8-2.4); PHOSPHORUS LEVEL 3.2 MG/DL (2.4-5.1); POTASSIUM SERUM 3.2 MMOL/L (3.5-5.1)
[2022-05-25] MEDS ORDERED: POTASSIUM CHLORIDE 10MEQ SR TABLET PO ONE ×2 (11:25→12:25)
[2022-05-25] MEDS ORDERED: ISOS10TA3 PO (11:30)
[2022-05-25] MEDS ORDERED: AMLO1TAB25 PO (11:30)
[2022-05-25] MEDS ORDERED: ATOR1TAB21 PO (11:30)
[2022-05-25 12:00] VITALS: BP 124/48
== END 2022-05-25 14:42 | DRG 252 ==
LOC: M ED 14:36 → EEVIPCON 16:36 → M ED INP 16:36 → ENRESERV 19:48 → M PCU 21:10 → M MSPAV 05-21 02:27 → M ICU 05-21 08:28 → M PCU 05-21 20:47 → M MSPAV 05-24 12:38
PROVIDERS: ADMIT General Practice; ATTEND Internal Medicine
PROC: 0JH63XZ Insertion of Tunneled Vascular Access Device into Chest Subcutaneous Tissue and Fascia, Percutaneous Approach (ICD-10-PCS; 2022-05-19)
PROC: 037Y3DZ Dilation of Upper Artery with Intraluminal Device, Percutaneous Approach (ICD-10-PCS; 2022-05-20)
PROC: 057Y3DZ Dilation of Upper Vein with Intraluminal Device, Percutaneous Approach (ICD-10-PCS; 2022-05-20)
PROC: 03CY3ZZ Extirpation of Matter from Upper Artery, Percutaneous Approach (ICD-10-PCS; 2022-05-20)
PROC: 3E05317 Introduction of Other Thrombolytic into Peripheral Artery, Percutaneous Approach (ICD-10-PCS; 2022-05-20)
PROC: 3E03317 Introduction of Other Thrombolytic into Peripheral Vein, Percutaneous Approach (ICD-10-PCS; 2022-05-20)
PROC: B51W1ZZ Fluoroscopy of Dialysis Shunt/Fistula using Low Osmolar Contrast (ICD-10-PCS; 2022-05-20)
PROC: 05CY3ZZ Extirpation of Matter from Upper Vein, Percutaneous Approach (ICD-10-PCS; principal; 2022-05-20 09:00)
PROC: B246ZZZ Ultrasonography of Right and Left Heart (ICD-10-PCS; 2022-05-21)
PROC: 5A1D70Z Performance of Urinary Filtration, Intermittent, Less than 6 Hours Per Day (ICD-10-PCS; 2022-05-23)
DX: T82.868A Thrombosis due to vascular prosthetic devices, implants and grafts, initial encounter (principal); N18.6 End stage renal disease; I21.A1 Myocardial infarction type 2; G93.41 Metabolic encephalopathy; I50.23 Acute on chronic systolic (congestive) heart failure; I13.2 Hypertensive heart and chronic kidney disease with heart failure and with stage 5 chronic kidney disease, or end stage renal disease; E87.5 Hyperkalemia; I16.0 Hypertensive urgency; E11.51 Type 2 diabetes mellitus with diabetic peripheral angiopathy without gangrene; I73.9 Peripheral vascular disease, unspecified; E11.22 Type 2 diabetes mellitus with diabetic chronic kidney disease; I95.9 Hypotension, unspecified; R56.9 Unspecified convulsions; I25.10 Atherosclerotic heart disease of native coronary artery without angina pectoris; I77.0 Arteriovenous fistula, acquired; I69.898 Other sequelae of other cerebrovascular disease; M50.30 Other cervical disc degeneration, unspecified cervical region; D63.1 Anemia in chronic kidney disease; E21.3 Hyperparathyroidism, unspecified; F41.8 Other specified anxiety disorders; Z95.5 Presence of coronary angioplasty implant and graft; Z89.421 Acquired absence of other right toe(s); Z89.422 Acquired absence of other left toe(s); Z20.822 Contact with and (suspected) exposure to COVID-19; Z79.899 Other long term (current) drug therapy; Z88.6 Allergy status to analgesic agent; Z66 Do not resuscitate

== ENCOUNTER → 2022-05-23 | Outpatient (REF) | payer MEDICAID, MEDICARE, OTHER ==
[~2022-05-23] MED LIST changes: +AMLO1TAB25 PO; +ATOR1TAB21 PO; +ISOS10TA3 PO; +LIDO1CRE42 TOP
== END ==
PROVIDERS: ATTEND Internal Medicine
DX: N18.9 Chronic kidney disease, unspecified (principal); Z53.8 Procedure and treatment not carried out for other reasons

== ENCOUNTER → 2022-06-01 | Outpatient (REF) ==
[~2022-06-01] MED LIST changes: -LOSA100T45 PO; +LOSA100T46 PO
[2022-06-01 11:03] LABS: HEMATOCRIT 32.1 % (42.0-52.0); HEMOGLOBIN 9.4 g/dl (13.5-17.5); MEAN CORPUSCULAR HEMOGLOBIN 29.6 pg (27.0-33.0); MEAN CORPUSCULAR HGB CONC 29.3 g/dl (32.0-36.5); MEAN CORPUSCULAR VOLUME 100.9 fl (80.0-96.0); PLATELET COUNT, AUTOMATED 138 10^3/uL (150-450); RED BLOOD COUNT 3.18 10^6/uL (4.30-6.10); WHITE BLOOD COUNT 4.8 10^3/uL (4.0-10.0)
[2022-06-01 11:33] LABS: CALCIUM LEVEL 9.9 MG/DL (8.3-10.6); CREATININE FOR GFR 6.42 MG/DL (0.70-1.30); GLOMERULAR FILTRATION RATE 9.1 (>42); POTASSIUM SERUM 4.1 MMOL/L (3.5-5.1)
== END ==
PROVIDERS: ATTEND Internal Medicine
DX: N18.9 Chronic kidney disease, unspecified (principal)

== ENCOUNTER → 2022-06-21 | Outpatient (CLI) | payer MEDICARE, OTHER, MEDICAID ==
[~2022-06-21] MED LIST changes: +LIDOCAINE W/EPINEPHRINE 1% 20ML VIAL As Ordered ONE
[2022-06-21 11:15] VITALS: BP 175/76
== END ==
LOC: M IRPRO 08:34
PROVIDERS: ATTEND Surgery Vascular Surgery
DX: N18.6 End stage renal disease (principal)

== ENCOUNTER → 2022-06-22 | Outpatient (REF) | payer MEDICARE, MEDICAID, OTHER ==
[~2022-06-22] MED LIST changes: -LIDOCAINE W/EPINEPHRINE 1% 20ML VIAL As Ordered ONE
== END ==
PROVIDERS: ATTEND Internal Medicine
DX: N18.9 Chronic kidney disease, unspecified (principal); Z53.8 Procedure and treatment not carried out for other reasons

== ENCOUNTER → 2022-08-04 | Outpatient (REF) | payer MEDICARE, OTHER, MEDICAID ==
[2022-08-04 17:18] LABS: HEMATOCRIT 33.1 % (42.0-52.0); HEMOGLOBIN 10.3 g/dl (13.5-17.5); MEAN CORPUSCULAR HEMOGLOBIN 29.7 pg (27.0-33.0); MEAN CORPUSCULAR HGB CONC 31.1 g/dl (32.0-36.5); MEAN CORPUSCULAR VOLUME 95.4 fl (80.0-96.0); PLATELET COUNT, AUTOMATED 105 10^3/uL (150-450); RED BLOOD COUNT 3.47 10^6/uL (4.30-6.10); WHITE BLOOD COUNT 5.8 10^3/uL (4.0-10.0)
== END ==
PROVIDERS: ATTEND Internal Medicine
DX: T17.998A Other foreign object in respiratory tract, part unspecified causing other injury, initial encounter (principal)

== ENCOUNTER → 2022-08-04 | Outpatient (REF) | payer MEDICARE, OTHER, MEDICAID | PROVIDERS: ATTEND Internal Medicine | DX: T17.908A Unspecified foreign body in respiratory tract, part unspecified causing other injury, initial encounter (principal); Y84.4 Aspiration of fluid as the cause of abnormal reaction of the patient, or of later complication, without mention of misadventure at the time of the procedure ==

== ENCOUNTER → 2022-08-05 | Outpatient (REF) | payer MEDICARE, OTHER, MEDICAID ==
[2022-08-05 09:41] LABS: CALCIUM LEVEL 9.4 MG/DL (8.3-10.6); CREATININE FOR GFR 5.92 MG/DL (0.70-1.30); POTASSIUM SERUM 4.4 MMOL/L (3.5-5.1)
== END ==
PROVIDERS: ATTEND Internal Medicine
DX: N18.9 Chronic kidney disease, unspecified (principal)

== ENCOUNTER → 2022-08-29 | Outpatient (REF) | payer MEDICARE, OTHER, MEDICAID ==
[~2022-08-29] MED LIST changes: -LIDO1CRE42 TOP; +LIDO30CR18 TOP
[2022-08-29 08:27] LABS: HEMATOCRIT 38.6 % (42.0-52.0); HEMOGLOBIN 11.9 g/dl (13.5-17.5); MEAN CORPUSCULAR HEMOGLOBIN 29.9 pg (27.0-33.0); MEAN CORPUSCULAR HGB CONC 30.8 g/dl (32.0-36.5); PLATELET COUNT, AUTOMATED 129 10^3/uL (150-450); RED BLOOD COUNT 3.98 10^6/uL (4.30-6.10); WHITE BLOOD COUNT 5.3 10^3/uL (4.0-10.0)
[2022-08-29 08:57] LABS: ALBUMIN 3.5 G/DL (3.2-5.2); BILIRUBIN,TOTAL 0.2 MG/DL (0.3-1.2); CALCIUM LEVEL 9.2 MG/DL (8.3-10.6); CREATININE FOR GFR 7.11 MG/DL (0.70-1.30); GLOMERULAR FILTRATION RATE 8.1 (>42); POTASSIUM SERUM 5.8 MMOL/L (3.5-5.1); TOTAL PROTEIN 6.8 G/DL (5.7-8.2)
== END ==
PROVIDERS: ATTEND Internal Medicine
DX: N18.9 Chronic kidney disease, unspecified (principal)

== ENCOUNTER 2022-09-26 16:35 | Inpatient (IN) | payer MEDICARE, OTHER, MEDICAID ==
[~2022-09-26] VITALS: Ht 172.7 cm; Wt 70.7 kg
[~2022-09-26 16:35] MED LIST changes: -ATOR80TA59 PO; +COZA1TAB PO; -LOSA-527 PO
[2022-09-26 17:54] LABS: HEMATOCRIT 39.9 % (42.0-52.0); HEMOGLOBIN 12.6 g/dl (13.5-17.5); MEAN CORPUSCULAR HEMOGLOBIN 30.3 pg (27.0-33.0); MEAN CORPUSCULAR HGB CONC 31.6 g/dl (32.0-36.5); MEAN CORPUSCULAR VOLUME 95.9 fl (80.0-96.0); PLATELET COUNT, AUTOMATED 113 10^3/uL (150-450); RED BLOOD COUNT 4.16 10^6/uL (4.30-6.10); WHITE BLOOD COUNT 6.3 10^3/uL (4.0-10.0)
[2022-09-26 18:24] LABS: CREATININE FOR GFR 8.88 MG/DL (0.70-1.30); GLOMERULAR FILTRATION RATE 6.3 (>42)
[2022-09-26] MEDS ORDERED: PATIROMER SORBITEX CALCIUM 8.4 GM POWDER PACKET (VELTASSA) PO ONE (18:30)
[2022-09-26] MEDS ORDERED: CALCIUM CHLORIDE 10% 1 GM in D5W 100 ML IV ONE (18:30)
[2022-09-26] MEDS ORDERED: ATOR80TA59 PO (19:07)
[2022-09-26] MEDS ORDERED: AMLO1TAB25 PO (19:07)
[2022-09-26] MEDS ORDERED: HOME MED LIST COMPLETE! XX SCH (19:15)
[2022-09-26] MEDS ORDERED: levETIRAcetam 250MG TABLET (KEPPRA) PO SCH (21:00)
[2022-09-26] MEDS ORDERED: BISACODYL 10MG SUPP PR PRN (21:25)
[2022-09-26] MEDS ORDERED: ACETAMINOPHEN TAB 650MG DOSE (2X325MG) PO PRN (21:25)
[2022-09-26 22:40] VITALS: BP 152/67; TEMP 97.7; O2SAT 96
[2022-09-26] MEDS: CARVedilol 12.5 MG TAB PO SCH (23:12)
[2022-09-26] MEDS: ATORVASTATIN 20 MG TAB PO SCH (23:12)
[2022-09-27] VITALS (10 sets, daily range): BP systolic 116–149; BP diastolic 57–90; TEMP 97–97.5; O2SAT 79–96
[2022-09-27] MEDS ORDERED: GLUCOSE 4GM CHEW TABLET PO PRN (00:15)
[2022-09-27] MEDS ORDERED: GLUCAGON INJ 1MG VIAL SC PRN (00:15)
[2022-09-27] MEDS ORDERED: DEXTROSE 50% 50ML SYRINGE IV PRN (00:15)
[2022-09-27 02:52] LABS: CALCIUM LEVEL 9.3 MG/DL (8.3-10.6); CREATININE FOR GFR 9.59 MG/DL (0.70-1.30); GLOMERULAR FILTRATION RATE 5.7 (>42); POTASSIUM SERUM 6.1 MMOL/L (3.5-5.1)
[2022-09-27] MEDS ORDERED: PATIROMER SORBITEX CALCIUM 8.4 GM POWDER PACKET (VELTASSA) PO ONE (05:00)
[2022-09-27] MEDS: INSULIN LISPRO (NovoLOG) PER UNIT SC SCH ×3 (05:27→18:00)
[2022-09-27 07:11] LABS: HEMATOCRIT 37.7 % (42.0-52.0); HEMOGLOBIN 12.1 g/dl (13.5-17.5); MEAN CORPUSCULAR HEMOGLOBIN 30.7 pg (27.0-33.0); MEAN CORPUSCULAR HGB CONC 32.1 g/dl (32.0-36.5); MEAN CORPUSCULAR VOLUME 95.7 fl (80.0-96.0); PLATELET COUNT, AUTOMATED 124 10^3/uL (150-450); RED BLOOD COUNT 3.94 10^6/uL (4.30-6.10); WHITE BLOOD COUNT 5.5 10^3/uL (4.0-10.0)
[2022-09-27 07:21] LABS: INR 1.21
[2022-09-27 07:22] LABS: PARTIAL THROMBOPLASTIN TIME 33.4 SECONDS (24.8-34.2)
[2022-09-27 07:26] LABS: CALCIUM LEVEL 9.4 MG/DL (8.3-10.6); CREATININE FOR GFR 9.58 MG/DL (0.70-1.30); GLOMERULAR FILTRATION RATE 5.7 (>42); POTASSIUM SERUM 5.3 MMOL/L (3.5-5.1)
[2022-09-27] MEDS: CARVedilol 12.5 MG TAB PO SCH ×2 (09:00→21:52)
[2022-09-27] MEDS: (RENVELA) SEVELAMER **CARBONate** 800 MG TAB PO SCH ×3 (09:00→18:00)
[2022-09-27] MEDS ORDERED: levETIRAcetam INJection 250 MG in D5W 100 ML IV SCH (12:00)
[2022-09-27] MEDS ORDERED: MIDAZOLAM INJ 2MG/2ML VIAL As Ordered ONE (17:21)
[2022-09-27] MEDS ORDERED: ISOVUE-300 61% 100ML VIAL As Ordered ONE (17:21)
[2022-09-27] MEDS ORDERED: fentaNYL 100 MCG/2 ML INJECTION As Ordered ONE ×2 (17:21→20:19)
[2022-09-27] MEDS ORDERED: LIDOCAINE 1% MDV 20ML VIAL As Ordered ONE (17:22)
[2022-09-27] MEDS ORDERED: ceFAZolin 2 GM/D5W 50 ML IV BAG As Ordered ONE (17:23)
[2022-09-27] MEDS ORDERED: ceFAZolin SOD 2 GM in IV 1 EA IV ONE (17:30)
[2022-09-27] MEDS ORDERED: ALTEPLASE 2MG/2ML VIAL As Ordered ONE ×2 (18:22→19:05)
[2022-09-27] MEDS ORDERED: HEPARIN 1,000UNITS/ML 10ML VIAL (FOR RADIOLOGY & DIALYSIS ONLY) As Ordered ONE ×2 (18:32→19:43)
[2022-09-27] MEDS ORDERED: LIDOCAINE W/EPINEPHRINE 1% 20ML VIAL As Ordered ONE (19:43)
[2022-09-27] MEDS: PANTOPRAZOLE 40MG TAB (PROTONIX) PO SCH (21:30)
[2022-09-27] MEDS: GABAPENTIN 300 MG CAP PO SCH (21:30)
[2022-09-27] MEDS: CLOPIDOGREL 75 MG TAB PO SCH (21:30)
[2022-09-27] MEDS: levETIRAcetam 250MG TABLET (KEPPRA) PO SCH (21:52)
[2022-09-27] MEDS: ATORVASTATIN 20 MG TAB PO SCH (21:52)
[2022-09-28] VITALS (7 sets, daily range): BP systolic 93–131; BP diastolic 51–60; TEMP 97.3–98.6; O2SAT 93–98
[2022-09-28] MEDS: INSULIN LISPRO (NovoLOG) PER UNIT SC SCH ×4 (01:03→17:28)
[2022-09-28] MEDS ORDERED: HEPARIN 1,000UNITS/ML 10ML VIAL (FOR RADIOLOGY & DIALYSIS ONLY) XX SCH (06:00)
[2022-09-28] MEDS ORDERED: HEPARIN 1,000UNITS/ML 10ML VIAL (FOR RADIOLOGY & DIALYSIS ONLY) IV PRN (06:00)
[2022-09-28] MEDS ORDERED: SODIUM CHLORIDE 0.9% 1000ML IV PRN (06:00)
[2022-09-28] MEDS: CARVedilol 12.5 MG TAB PO SCH ×2 (06:21→21:00)
[2022-09-28] MEDS: CLOPIDOGREL 75 MG TAB PO SCH (06:29)
[2022-09-28] MEDS: GABAPENTIN 300 MG CAP PO SCH (06:29)
[2022-09-28] MEDS: levETIRAcetam 250MG TABLET (KEPPRA) PO SCH ×2 (06:29→21:35)
[2022-09-28] MEDS: PANTOPRAZOLE 40MG TAB (PROTONIX) PO SCH (06:29)
[2022-09-28] MEDS: (RENVELA) SEVELAMER **CARBONate** 800 MG TAB PO SCH ×3 (07:34→17:28)
[2022-09-28 13:26] LABS: HEMATOCRIT 34.8 % (42.0-52.0); HEMOGLOBIN 11.2 g/dl (13.5-17.5); MEAN CORPUSCULAR HEMOGLOBIN 29.9 pg (27.0-33.0); MEAN CORPUSCULAR HGB CONC 32.2 g/dl (32.0-36.5); PLATELET COUNT, AUTOMATED 114 10^3/uL (150-450); RED BLOOD COUNT 3.74 10^6/uL (4.30-6.10); WHITE BLOOD COUNT 4.6 10^3/uL (4.0-10.0)
[2022-09-28 14:06] LABS: CALCIUM LEVEL 8.4 MG/DL (8.3-10.6); CREATININE FOR GFR 4.35 MG/DL (0.70-1.30); GLOMERULAR FILTRATION RATE 14.3 (>42); POTASSIUM SERUM 3.7 MMOL/L (3.5-5.1)
[2022-09-28] MEDS: ATORVASTATIN 20 MG TAB PO SCH (21:36)
[2022-09-29 02:00] VITALS: BP 108/53; TEMP 98.1; O2SAT 94
[2022-09-29 05:49] LABS: BASO % 0.9 % (0.0-1.0); EOS # 0.1 10^3/uL (0.0-0.5); EOS % 3.1 % (0.0-3.0); HEMATOCRIT 31.7 % (42.0-52.0); HEMOGLOBIN 10.1 g/dl (13.5-17.5); LYMPH # 1.2 10^3/uL (1.5-5.0); LYMPH % 25.7 % (24.0-44.0); MEAN CORPUSCULAR HEMOGLOBIN 30.3 pg (27.0-33.0); MEAN CORPUSCULAR HGB CONC 31.9 g/dl (32.0-36.5); MEAN CORPUSCULAR VOLUME 95.2 fl (80.0-96.0); MONO # 0.5 10^3/uL (0.0-0.8); MONO % 11.8 % (2.0-8.0); NEUTROPHILS # 2.7 10^3/uL (1.5-8.5); NEUTROPHILS % 58.1 % (36.0-66.0); PLATELET COUNT, AUTOMATED 105 10^3/uL (150-450); RED BLOOD COUNT 3.33 10^6/uL (4.30-6.10); WHITE BLOOD COUNT 4.6 10^3/uL (4.0-10.0)
[2022-09-29 06:00] VITALS: BP 115/55; TEMP 98.4; O2SAT 94
[2022-09-29] MEDS: INSULIN LISPRO (NovoLOG) PER UNIT SC SCH ×4 (06:00→17:08)
[2022-09-29 06:13] LABS: CALCIUM LEVEL 8.3 MG/DL (8.3-10.6); CREATININE FOR GFR 6.34 MG/DL (0.70-1.30); GLOMERULAR FILTRATION RATE 9.3 (>42); POTASSIUM SERUM 3.9 MMOL/L (3.5-5.1)
[2022-09-29] MEDS: GABAPENTIN 300 MG CAP PO SCH (08:59)
[2022-09-29] MEDS: levETIRAcetam 250MG TABLET (KEPPRA) PO SCH ×2 (08:59→21:13)
[2022-09-29] MEDS: CLOPIDOGREL 75 MG TAB PO SCH (08:59)
[2022-09-29] MEDS: PANTOPRAZOLE 40MG TAB (PROTONIX) PO SCH (08:59)
[2022-09-29] MEDS: (RENVELA) SEVELAMER **CARBONate** 800 MG TAB PO SCH ×3 (08:59→17:42)
[2022-09-29] MEDS: CARVedilol 12.5 MG TAB PO SCH ×2 (09:00→21:13)
[2022-09-29 10:00] VITALS: BP 118/57; TEMP 97.7; O2SAT 97
[2022-09-29 14:00] VITALS: BP 121/56; TEMP 97.7; O2SAT 96
[2022-09-29 18:00] VITALS: BP 134/57; TEMP 97.9; O2SAT 96
[2022-09-29 20:59] VITALS: BP 134/58; TEMP 98.1; O2SAT 94
[2022-09-29] MEDS: ATORVASTATIN 20 MG TAB PO SCH (21:13)
[2022-09-30] MEDS: INSULIN LISPRO (NovoLOG) PER UNIT SC SCH ×3 (06:00→12:00)
[2022-09-30 06:40] VITALS: BP 132/58; TEMP 98.4; O2SAT 95
[2022-09-30] MEDS: (RENVELA) SEVELAMER **CARBONate** 800 MG TAB PO SCH (06:53)
[2022-09-30 06:54] VITALS: BP 132/58
[2022-09-30] MEDS: PANTOPRAZOLE 40MG TAB (PROTONIX) PO SCH (06:54)
[2022-09-30] MEDS: CLOPIDOGREL 75 MG TAB PO SCH (06:54)
[2022-09-30] MEDS: CARVedilol 12.5 MG TAB PO SCH (06:54)
[2022-09-30] MEDS: levETIRAcetam 250MG TABLET (KEPPRA) PO SCH (06:54)
[2022-09-30] MEDS: GABAPENTIN 300 MG CAP PO SCH (06:54)
[2022-09-30] MEDS ORDERED: SODIUM CHLORIDE 0.9% 1000ML IV PRN (08:30)
[2022-09-30] MEDS ORDERED: HEPARIN 1,000UNITS/ML 10ML VIAL (FOR RADIOLOGY & DIALYSIS ONLY) IV PRN (08:30)
[2022-09-30] MEDS ORDERED: HEPARIN 1,000UNITS/ML 10ML VIAL (FOR RADIOLOGY & DIALYSIS ONLY) XX SCH (08:30)
[2022-09-30 08:47] LABS: BASO % 0.6 % (0.0-1.0); EOS # 0.1 10^3/uL (0.0-0.5); EOS % 3.4 % (0.0-3.0); HEMATOCRIT 30.4 % (42.0-52.0); HEMOGLOBIN 9.8 g/dl (13.5-17.5); LYMPH # 0.7 10^3/uL (1.5-5.0); MEAN CORPUSCULAR HEMOGLOBIN 30.6 pg (27.0-33.0); MEAN CORPUSCULAR HGB CONC 32.2 g/dl (32.0-36.5); MONO # 0.2 10^3/uL (0.0-0.8); MONO % 6.8 % (2.0-8.0); NEUTROPHILS # 2.4 10^3/uL (1.5-8.5); NEUTROPHILS % 67.9 % (36.0-66.0); WHITE BLOOD COUNT 3.5 10^3/uL (4.0-10.0)
[2022-09-30 08:51] LABS: PLATELET COUNT, AUTOMATED 92 10^3/uL (150-450)
[2022-09-30 09:28] LABS: CALCIUM LEVEL 7.6 MG/DL (8.3-10.6); CREATININE FOR GFR 5.38 MG/DL (0.70-1.30); GLOMERULAR FILTRATION RATE 11.2 (>42); POTASSIUM SERUM 3.3 MMOL/L (3.5-5.1)
[2022-09-30 12:15] VITALS: BP 121/59; TEMP 97.7; O2SAT 94
== END 2022-09-30 12:28 | DRG 252 ==
LOC: M ED 16:35 → EDBD 16:35 → M ED INP 20:38 → M MSPAV 22:34
PROVIDERS: ADMIT Family Medicine; ATTEND General Practice
PROC: 03783ZZ Dilation of Left Brachial Artery, Percutaneous Approach (ICD-10-PCS; 2022-09-27)
PROC: 3E03317 Introduction of Other Thrombolytic into Peripheral Vein, Percutaneous Approach (ICD-10-PCS; 2022-09-27)
PROC: 0JH63XZ Insertion of Tunneled Vascular Access Device into Chest Subcutaneous Tissue and Fascia, Percutaneous Approach (ICD-10-PCS; 2022-09-27)
PROC: 02HV33Z Insertion of Infusion Device into Superior Vena Cava, Percutaneous Approach (ICD-10-PCS; 2022-09-27)
PROC: 057F3DZ Dilation of Left Cephalic Vein with Intraluminal Device, Percutaneous Approach (ICD-10-PCS; principal; 2022-09-27 14:00)
PROC: 5A1D70Z Performance of Urinary Filtration, Intermittent, Less than 6 Hours Per Day (ICD-10-PCS; 2022-09-29)
DX: T82.868A Thrombosis due to vascular prosthetic devices, implants and grafts, initial encounter (principal); N18.6 End stage renal disease; K65.9 Peritonitis, unspecified; I12.0 Hypertensive chronic kidney disease with stage 5 chronic kidney disease or end stage renal disease; I69.351 Hemiplegia and hemiparesis following cerebral infarction affecting right dominant side; N25.81 Secondary hyperparathyroidism of renal origin; E11.22 Type 2 diabetes mellitus with diabetic chronic kidney disease; I25.10 Atherosclerotic heart disease of native coronary artery without angina pectoris; Z89.429 Acquired absence of other toe(s), unspecified side; E11.51 Type 2 diabetes mellitus with diabetic peripheral angiopathy without gangrene; I73.9 Peripheral vascular disease, unspecified; M50.30 Other cervical disc degeneration, unspecified cervical region; F03.90 Unspecified dementia, unspecified severity, without behavioral disturbance, psychotic disturbance, mood disturbance, and anxiety; D64.9 Anemia, unspecified; F32.A Depression, unspecified; F41.9 Anxiety disorder, unspecified; K21.9 Gastro-esophageal reflux disease without esophagitis; E87.5 Hyperkalemia; G40.909 Epilepsy, unspecified, not intractable, without status epilepticus; E78.5 Hyperlipidemia, unspecified; K59.00 Constipation, unspecified; Z95.5 Presence of coronary angioplasty implant and graft; Z99.2 Dependence on renal dialysis; Z66 Do not resuscitate; Z79.02 Long term (current) use of antithrombotics/antiplatelets; Z79.899 Other long term (current) drug therapy; Z88.6 Allergy status to analgesic agent; Z20.822 Contact with and (suspected) exposure to COVID-19; L89.629 Pressure ulcer of left heel, unspecified stage; Z99.3 Dependence on wheelchair

== ENCOUNTER → 2022-09-26 | Outpatient (REF) | payer MEDICARE, OTHER, MEDICAID ==
[~2022-09-26] MED LIST changes: +ATOR80TA59 PO; -COZA1TAB PO; +LOSA-527 PO
== END ==
PROVIDERS: ATTEND Internal Medicine
DX: N18.9 Chronic kidney disease, unspecified (principal); Z53.9 Procedure and treatment not carried out, unspecified reason

== ENCOUNTER → 2022-10-24 | Outpatient (REF) | payer MEDICARE, OTHER, MEDICAID ==
[~2022-10-24] MED LIST changes: +ATOR80TA59 PO; -COZA1TAB PO; +LOSA-527 PO
== END ==
PROVIDERS: ATTEND Internal Medicine
DX: N18.9 Chronic kidney disease, unspecified (principal); Z53.9 Procedure and treatment not carried out, unspecified reason

== ENCOUNTER → 2022-11-23 | Outpatient (REF) | payer MEDICAID, MEDICARE, OTHER | PROVIDERS: ATTEND Internal Medicine | DX: N18.9 Chronic kidney disease, unspecified (principal); Z53.8 Procedure and treatment not carried out for other reasons ==

== ENCOUNTER → 2022-12-01 | Outpatient (CLI) | payer MEDICARE, OTHER, MEDICAID | LOC: M RAD 10:30 | PROVIDERS: ATTEND Physician Assistant | DX: I70.238 Atherosclerosis of native arteries of right leg with ulceration of other part of lower leg (principal); Z53.9 Procedure and treatment not carried out, unspecified reason ==

== ENCOUNTER → 2022-12-14 | Outpatient (CLI) | payer MEDICARE, OTHER, MEDICAID | LOC: M EKG 07:26 | PROVIDERS: ATTEND Internal Medicine | DX: Z01.818 Encounter for other preprocedural examination (principal); I44.0 Atrioventricular block, first degree ==

== ENCOUNTER 2022-12-20 08:10 | Observation (INO) | payer MEDICARE, OTHER, MEDICAID ==
[2022-12-20] VITALS (8 sets, daily range): BP systolic 118–137; BP diastolic 60–63; TEMP 97–97.4; O2SAT 94–96
[~2022-12-20] VITALS: Ht 175.3 cm; Wt 71.0 kg
[~2022-12-20 08:10] MED LIST changes: +ceFAZolin SOD 2 GM in IV 1 EA IV ONE
[2022-12-20] MEDS ORDERED: LR 1,000 ML IV SCH (08:55)
[2022-12-20 09:21] LABS: HEMATOCRIT 34.5 % (42.0-52.0); MEAN CORPUSCULAR HEMOGLOBIN 30.8 pg (27.0-33.0); MEAN CORPUSCULAR HGB CONC 31.9 g/dl (32.0-36.5); MEAN CORPUSCULAR VOLUME 96.6 fl (80.0-96.0); PLATELET COUNT, AUTOMATED 101 10^3/uL (150-450); RED BLOOD COUNT 3.57 10^6/uL (4.30-6.10); WHITE BLOOD COUNT 4.9 10^3/uL (4.0-10.0)
[2022-12-20] MEDS ORDERED: fentaNYL 100 MCG/2 ML INJECTION As Ordered ONE (09:27)
[2022-12-20] MEDS ORDERED: MIDAZOLAM INJ 2MG/2ML VIAL As Ordered ONE (09:28)
[2022-12-20] MEDS ORDERED: ONDANSETRON 4MG 2ML VIAL As Ordered ONE (09:28)
[2022-12-20] MEDS ORDERED: propofoL 200 MG/20 ML VIAL As Ordered ONE (09:28)
[2022-12-20] MEDS ORDERED: HEPARIN SOD (PORCINE) 5000UNITS/ML 1ML VIAL/SYRINGE As Ordered ONE ×3 (09:28→11:57)
[2022-12-20] MEDS ORDERED: PAPAVERINE HCL 60MG 2ML VIAL (30MG/ML) As Ordered ONE ×2 (09:28→11:54)
[2022-12-20] MEDS ORDERED: LIDOCAINE 1% SDV 30ML VIAL As Ordered ONE ×2 (09:28→11:54)
[2022-12-20] MEDS ORDERED: LIDOCAINE 2% 100MG/5ML SDV (FOR ANES.) As Ordered ONE ×2 (09:28→11:55)
[2022-12-20 09:32] LABS: INR 1.23; PROTHROMBIN TIME 15.1 SECONDS (12.5-14.5)
[2022-12-20] MEDS ORDERED: SUGAMMADEX SODIUM 500 MG/5 ML VIAL (BRIDION) As Ordered ONE (09:33)
[2022-12-20] MEDS ORDERED: ROCURONIUM BROMIDE 50MG/5ML VIAL As Ordered ONE (09:33)
[2022-12-20 09:46] LABS: CALCIUM LEVEL 8.8 MG/DL (8.3-10.6); CREATININE FOR GFR 5.36 MG/DL (0.70-1.30); GLOMERULAR FILTRATION RATE 11.2 (>42); POTASSIUM SERUM 4.3 MMOL/L (3.5-5.1)
[2022-12-20] MEDS ORDERED: THROMBIN 5,000 UNITS VIAL As Ordered ONE (14:17)
[2022-12-20] MEDS ORDERED: oxyCODONE 5MG TAB PO PRN (15:40)
[2022-12-20] MEDS ORDERED: ONDANSETRON 4MG 2ML VIAL IV PRN (15:40)
[2022-12-20] MEDS ORDERED: fentaNYL 100 MCG/2 ML INJECTION IV PRN (15:40)
[2022-12-20] MEDS ORDERED: MORPHINE 2 MG/ML 1ML VIAL IV PRN (15:40)
[2022-12-20] MEDS ORDERED: PERCOCET PO (15:58)
[2022-12-20 17:21] LABS: ABG BASE EXCESS -3.2 (-2.0-2.0); ABG HCO3 22.6 MMOL/L (22.0-26.0); ABG O2 SATURATION 88.2 % (95.0-99.0); ABG PARTIAL PRESSURE CO2 43.6 mmHg (35.0-45.0); ABG PARTIAL PRESSURE O2 58.9 mmHg (75.0-100.0); ABG STANDARD HCO3 21.6 MMOL/L. (22.0-26.0); ABG TOTAL CO2 23.9 MMOL/L (23.0-31.0); ABG pH (ARTERIAL) 7.332 UNITS (7.350-7.450)
[2022-12-20 17:37] LABS: BASO % 0.4 % (0.0-1.0); EOS % 0.4 % (0.0-3.0); HEMATOCRIT 34.8 % (42.0-52.0); HEMOGLOBIN 10.8 g/dl (13.5-17.5); LYMPH # 0.6 10^3/uL (1.5-5.0); LYMPH % 10.4 % (24.0-44.0); MEAN CORPUSCULAR HEMOGLOBIN 30.4 pg (27.0-33.0); MONO # 0.1 10^3/uL (0.0-0.8); MONO % 1.4 % (2.0-8.0); NEUTROPHILS # 4.9 10^3/uL (1.5-8.5); NEUTROPHILS % 86.9 % (36.0-66.0); PLATELET COUNT, AUTOMATED 100 10^3/uL (150-450); RED BLOOD COUNT 3.55 10^6/uL (4.30-6.10); WHITE BLOOD COUNT 5.6 10^3/uL (4.0-10.0)
[2022-12-20 17:48] LABS: INR 1.25; PROTHROMBIN TIME 15.3 SECONDS (12.5-14.5)
[2022-12-20 18:06] LABS: ALBUMIN 3.2 G/DL (3.2-5.2); BILIRUBIN,TOTAL 0.5 MG/DL (0.3-1.2); CREATININE FOR GFR 5.61 MG/DL (0.70-1.30); GLOMERULAR FILTRATION RATE 10.7 (>42); POTASSIUM SERUM 4.4 MMOL/L (3.5-5.1); TOTAL PROTEIN 6.6 G/DL (5.7-8.2)
[2022-12-20] MEDS: levETIRAcetam 250MG TABLET (KEPPRA) PO SCH (20:46)
[2022-12-20] MEDS ORDERED: ATORVASTATIN 20 MG TAB PO SCH (21:00)
[2022-12-20] MEDS ORDERED: ACETAMINOPHEN TAB 650MG DOSE (2X325MG) PO ONE (22:00)
[2022-12-21 03:30] VITALS: BP 135/75; TEMP 97.5; O2SAT 96
[2022-12-21 07:30] VITALS: BP 147/54; TEMP 97.7; O2SAT 96
[2022-12-21] MEDS: levETIRAcetam 250MG TABLET (KEPPRA) PO SCH (08:35)
[2022-12-21 09:00] VITALS: O2SAT 95
[2022-12-21] MEDS ORDERED: CLOPIDOGREL 75 MG TAB PO SCH (09:00)
== END 2022-12-21 12:09 ==
LOC: M SDC 08:10 → M RR INP 08:11 → ENRESERV 18:07 → M MSPAV 18:39
PROVIDERS: ADMIT Internal Medicine Nephrology; ATTEND Internal Medicine Nephrology
DX: G93.41 Metabolic encephalopathy (principal); J95.2 Acute pulmonary insufficiency following nonthoracic surgery; J69.8 Pneumonitis due to inhalation of other solids and liquids; N18.6 End stage renal disease; I12.0 Hypertensive chronic kidney disease with stage 5 chronic kidney disease or end stage renal disease; Z86.73 Personal history of transient ischemic attack (TIA), and cerebral infarction without residual deficits; M21.379 Foot drop, unspecified foot; R26.89 Other abnormalities of gait and mobility; Z99.3 Dependence on wheelchair; E11.40 Type 2 diabetes mellitus with diabetic neuropathy, unspecified; E78.5 Hyperlipidemia, unspecified; I73.9 Peripheral vascular disease, unspecified; I25.10 Atherosclerotic heart disease of native coronary artery without angina pectoris; Z79.51 Long term (current) use of inhaled steroids; I50.40 Unspecified combined systolic (congestive) and diastolic (congestive) heart failure; N25.0 Renal osteodystrophy; D64.9 Anemia, unspecified; F41.9 Anxiety disorder, unspecified; F32.A Depression, unspecified; Z98.61 Coronary angioplasty status; Z79.02 Long term (current) use of antithrombotics/antiplatelets; Z79.899 Other long term (current) drug therapy; Z88.8 Allergy status to other drugs, medicaments and biological substances
CPT/HCPCS: 36415; 36830; 71045; 80048; 80053; 82803; 85025; 85027; 85610; 86850; 86900; 86901; 87635; 93005; C1768; G0378; J0665; J0690; J1100; J2250; J2405; J2440; J3010

== ENCOUNTER → 2022-12-21 | Outpatient (REF) | payer MEDICARE, OTHER, MEDICAID ==
[~2022-12-21] MED LIST changes: +BYST1TAB PO; -BYST20TA2 PO; +PERCOCET PO; +SEVE800T3 PO; -ceFAZolin SOD 2 GM in IV 1 EA IV ONE
== END ==
PROVIDERS: ATTEND Internal Medicine
DX: N18.9 Chronic kidney disease, unspecified (principal); Z53.8 Procedure and treatment not carried out for other reasons

== ENCOUNTER → 2023-01-03 | Outpatient (CLI) | payer MEDICARE, OTHER, MEDICAID ==
[~2023-01-03] MED LIST changes: -BYST1TAB PO; +BYST20TA2 PO; -SEVE800T3 PO
== END ==
LOC: M RAD 09:23
PROVIDERS: ATTEND Physician Assistant
DX: R68.89 Other general symptoms and signs (principal); I70.201 Unspecified atherosclerosis of native arteries of extremities, right leg

== ENCOUNTER → 2023-01-12 | Outpatient (CLI) | payer MEDICARE, OTHER, MEDICAID ==
[~2023-01-12] MED LIST changes: +BYST1TAB PO; -BYST20TA2 PO; +HEPARIN 1,000UNITS/ML 10ML VIAL (FOR RADIOLOGY & DIALYSIS ONLY) As Ordered ONE; +ISOVUE-300 61% 100ML VIAL As Ordered ONE; +LIDOCAINE 1% MDV 20ML VIAL As Ordered ONE; +MIDAZOLAM INJ 2MG/2ML VIAL As Ordered ONE; +SEVE800T3 PO; +ceFAZolin 2 GM/D5W 50 ML IV BAG As Ordered ONE; +fentaNYL 100 MCG/2 ML INJECTION As Ordered ONE
[2023-01-12 11:49] LABS: HEMATOCRIT 36.4 % (42.0-52.0); HEMOGLOBIN 11.3 g/dl (13.5-17.5); MEAN CORPUSCULAR HEMOGLOBIN 30.2 pg (27.0-33.0); MEAN CORPUSCULAR VOLUME 97.3 fl (80.0-96.0); PLATELET COUNT, AUTOMATED 141 10^3/uL (150-450); RED BLOOD COUNT 3.74 10^6/uL (4.30-6.10); WHITE BLOOD COUNT 4.4 10^3/uL (4.0-10.0)
[2023-01-12 12:00] LABS: INR 1.12
[2023-01-12 12:29] LABS: CALCIUM LEVEL 9.4 MG/DL (8.3-10.6); CREATININE FOR GFR 5.76 MG/DL (0.70-1.30); GLOMERULAR FILTRATION RATE 10.3 (>42); POTASSIUM SERUM 4.5 MMOL/L (3.5-5.1)
[2023-01-12 16:45] VITALS: BP 135/68; O2SAT 94
== END ==
LOC: M IRPRO 09:50
PROVIDERS: ATTEND Surgery Vascular Surgery
DX: I73.9 Peripheral vascular disease, unspecified (principal); L97.519 Non-pressure chronic ulcer of other part of right foot with unspecified severity
CPT/HCPCS: 37224; 37228; 80048; 83735; 85027; 85610; 86850; 86900; 86901; 99152; 99153; C1725; C1760; C1894; C2623; J0690; J2250; J3010; Q9967

== ENCOUNTER → 2023-01-25 | Outpatient (REF) | payer MEDICARE, OTHER, MEDICAID ==
[~2023-01-25] MED LIST changes: -HEPARIN 1,000UNITS/ML 10ML VIAL (FOR RADIOLOGY & DIALYSIS ONLY) As Ordered ONE; -ISOVUE-300 61% 100ML VIAL As Ordered ONE; -LIDOCAINE 1% MDV 20ML VIAL As Ordered ONE; -MIDAZOLAM INJ 2MG/2ML VIAL As Ordered ONE; -ceFAZolin 2 GM/D5W 50 ML IV BAG As Ordered ONE; -fentaNYL 100 MCG/2 ML INJECTION As Ordered ONE
== END ==
PROVIDERS: ATTEND Internal Medicine
DX: N18.9 Chronic kidney disease, unspecified (principal); Z53.8 Procedure and treatment not carried out for other reasons

== ENCOUNTER → 2023-02-20 | Outpatient (REF) | payer MEDICARE, OTHER, MEDICAID | PROVIDERS: ATTEND Internal Medicine | DX: N18.9 Chronic kidney disease, unspecified (principal); Z53.8 Procedure and treatment not carried out for other reasons ==

== ENCOUNTER → 2023-02-21 | Outpatient (CLI) | payer MEDICARE, OTHER, MEDICAID ==
[~2023-02-21] MED LIST changes: +LIDOCAINE 1% MDV 20ML VIAL As Ordered ONE; +LIDOCAINE W/EPINEPHRINE 1% 20ML VIAL As Ordered ONE
[2023-02-21 09:12] VITALS: BP 143/65; TEMP 97.8; O2SAT 96
== END ==
LOC: M IRPRO 09:16
PROVIDERS: ATTEND Internal Medicine Nephrology
DX: N18.6 End stage renal disease (principal); Z53.9 Procedure and treatment not carried out, unspecified reason

== ENCOUNTER → 2023-03-03 | Outpatient (REF) | payer MEDICARE, OTHER, MEDICAID ==
[~2023-03-03] MED LIST changes: +DIPH1TAB80 PO; -DIPH2.5T14 PO; -LIDOCAINE 1% MDV 20ML VIAL As Ordered ONE; -LIDOCAINE W/EPINEPHRINE 1% 20ML VIAL As Ordered ONE
== END ==
PROVIDERS: ATTEND Internal Medicine
DX: N18.9 Chronic kidney disease, unspecified (principal); Z53.8 Procedure and treatment not carried out for other reasons

== ENCOUNTER 2023-04-12 16:06 | Emergency (ER) | payer MEDICARE, OTHER, MEDICAID ==
[~2023-04-12] VITALS: Ht 172.7 cm; Wt 74.9 kg
[~2023-04-12 16:06] MED LIST changes: -DIPH1TAB80 PO; +DIPH2.5T14 PO
[2023-04-12] MEDS ORDERED: HEPARIN SOD (PORCINE) 5000UNITS/ML 1ML VIAL/SYRINGE IV PRN (17:10)
[2023-04-12 17:16] LABS: HEMATOCRIT 34.5 % (42.0-52.0); HEMOGLOBIN 11.3 g/dl (13.5-17.5); MEAN CORPUSCULAR HEMOGLOBIN 31.4 pg (27.0-33.0); MEAN CORPUSCULAR HGB CONC 32.8 g/dl (32.0-36.5); MEAN CORPUSCULAR VOLUME 95.8 fl (80.0-96.0); PLATELET COUNT, AUTOMATED 146 10^3/uL (150-450); WHITE BLOOD COUNT 6.2 10^3/uL (4.0-10.0)
[2023-04-12] MEDS: HEPARIN SOD (PORCINE) 5000UNITS/ML 1ML VIAL/SYRINGE IV ONE (17:19)
[2023-04-12] MEDS: HEPARIN DRIP 25,000 UNITS in IV 1 EA IV SCH (17:22)
[2023-04-12 17:33] LABS: INR 1.12; PARTIAL THROMBOPLASTIN TIME 30.3 SECONDS (24.8-34.2); PROTHROMBIN TIME 14.1 SECONDS (12.5-14.5)
[2023-04-12 17:54] LABS: CALCIUM LEVEL 8.6 MG/DL (8.3-10.6); CREATININE FOR GFR 3.55 MG/DL (0.70-1.30); POTASSIUM SERUM 5.5 MMOL/L (3.5-5.1)
[2023-04-12 18:43] VITALS: BP 146/70; TEMP 97.1; O2SAT 96
== END 2023-04-12 18:46 | disposition short-term general hospital (02) ==
LOC: M ED 16:06
DX: I74.3 Embolism and thrombosis of arteries of the lower extremities (principal); I25.10 Atherosclerotic heart disease of native coronary artery without angina pectoris; E11.9 Type 2 diabetes mellitus without complications; I10 Essential (primary) hypertension; E78.5 Hyperlipidemia, unspecified; N18.6 End stage renal disease; Z99.2 Dependence on renal dialysis; Z86.73 Personal history of transient ischemic attack (TIA), and cerebral infarction without residual deficits; F03.90 Unspecified dementia, unspecified severity, without behavioral disturbance, psychotic disturbance, mood disturbance, and anxiety; Z95.5 Presence of coronary angioplasty implant and graft; Z87.891 Personal history of nicotine dependence; Z79.899 Other long term (current) drug therapy; Z88.8 Allergy status to other drugs, medicaments and biological substances

== ENCOUNTER → 2023-04-24 | Outpatient (REF) | payer MEDICARE, OTHER, MEDICAID ==
[~2023-04-24] MED LIST changes: +DIPH1TAB80 PO; -DIPH2.5T14 PO
== END ==
PROVIDERS: ATTEND Internal Medicine
DX: N18.9 Chronic kidney disease, unspecified (principal); Z53.8 Procedure and treatment not carried out for other reasons

== ENCOUNTER → 2023-05-29 | Outpatient (REF) | payer MEDICAID, MEDICARE, OTHER ==
[2023-05-29 08:44] LABS: HEMATOCRIT 35.9 % (42.0-52.0); HEMOGLOBIN 11.1 g/dl (13.5-17.5); MEAN CORPUSCULAR HGB CONC 30.9 g/dl (32.0-36.5); MEAN CORPUSCULAR VOLUME 100.3 fl (80.0-96.0); PLATELET COUNT, AUTOMATED 184 10^3/uL (150-450); RED BLOOD COUNT 3.58 10^6/uL (4.30-6.10); WHITE BLOOD COUNT 3.8 10^3/uL (4.0-10.0)
[2023-05-29 09:32] LABS: ALBUMIN 3.1 G/DL (3.2-5.2); BILIRUBIN,TOTAL 0.2 MG/DL (0.3-1.2); CALCIUM LEVEL 8.1 MG/DL (8.3-10.6); CREATININE FOR GFR 8.13 MG/DL (0.70-1.30); GLOMERULAR FILTRATION RATE 6.9 (>42); POTASSIUM SERUM 3.9 MMOL/L (3.5-5.1); TOTAL PROTEIN 6.8 G/DL (5.7-8.2)
== END ==
PROVIDERS: ATTEND Internal Medicine
DX: N18.9 Chronic kidney disease, unspecified (principal)

== ENCOUNTER → 2023-06-05 | Outpatient (REF) | PROVIDERS: ATTEND Physician Assistant | DX: R05.9 Cough, unspecified (principal) ==

== ENCOUNTER → 2023-06-13 | Outpatient (REF) | payer MEDICARE, MEDICAID ==
[~2023-06-13] MED LIST changes: -ROSU10TA6 PO; +ROSU10TA61 PO
== END ==
PROVIDERS: ATTEND Internal Medicine
DX: Z01.818 Encounter for other preprocedural examination (principal)

== ENCOUNTER → 2023-06-13 | Outpatient (REF) | PROVIDERS: ATTEND Internal Medicine | DX: Z01.818 Encounter for other preprocedural examination (principal); Z53.8 Procedure and treatment not carried out for other reasons ==

== ENCOUNTER → 2023-06-19 | Outpatient (CLI) | payer MEDICARE, MEDICAID | LOC: M RAD 07:31 | PROVIDERS: ATTEND Internal Medicine | DX: R05.9 Cough, unspecified (principal); Z95.828 Presence of other vascular implants and grafts ==

== ENCOUNTER → 2023-06-20 | Outpatient (REF) | payer MEDICARE, MEDICAID ==
[2023-06-20 14:52] LABS: HEMOGLOBIN 10.9 g/dl (13.5-17.5); MEAN CORPUSCULAR HEMOGLOBIN 30.2 pg (27.0-33.0); MEAN CORPUSCULAR HGB CONC 31.1 g/dl (32.0-36.5); PLATELET COUNT, AUTOMATED 143 10^3/uL (150-450); RED BLOOD COUNT 3.61 10^6/uL (4.30-6.10)
[2023-06-20 15:14] LABS: CALCIUM LEVEL 8.1 MG/DL (8.3-10.6); CREATININE FOR GFR 6.71 MG/DL (0.70-1.30); GLOMERULAR FILTRATION RATE 8.6 (>42); POTASSIUM SERUM 4.2 MMOL/L (3.5-5.1)
== END ==
PROVIDERS: ATTEND Internal Medicine
DX: N18.9 Chronic kidney disease, unspecified (principal)

== ENCOUNTER → 2023-06-28 | Outpatient (REF) | payer MEDICARE, OTHER, MEDICAID ==
[2023-06-28 12:40] LABS: HEMATOCRIT 31.8 % (42.0-52.0); HEMOGLOBIN 9.7 g/dl (13.5-17.5); MEAN CORPUSCULAR HEMOGLOBIN 29.9 pg (27.0-33.0); MEAN CORPUSCULAR HGB CONC 30.5 g/dl (32.0-36.5); MEAN CORPUSCULAR VOLUME 98.1 fl (80.0-96.0); PLATELET COUNT, AUTOMATED 134 10^3/uL (150-450); RED BLOOD COUNT 3.24 10^6/uL (4.30-6.10); WHITE BLOOD COUNT 5.4 10^3/uL (4.0-10.0)
[2023-06-28 13:15] LABS: CALCIUM LEVEL 7.9 MG/DL (8.3-10.6); CREATININE FOR GFR 13.25 MG/DL (0.70-1.30); GLOMERULAR FILTRATION RATE 3.9 (>42); POTASSIUM SERUM 7.8 MMOL/L (3.5-5.1)
== END ==
PROVIDERS: ATTEND Internal Medicine
DX: N18.9 Chronic kidney disease, unspecified (principal)